=== PATIENT | female | born 1965 | race Caucasian/White ===

== ENCOUNTER 2017-09-10 14:11 | Emergency (ER) | payer OTHER, SELFPAY ==
[2017-09-10 14:12] VITALS: BP 153/100; PULSE 101; RESP 16; TEMP 36.5; O2SAT 98; BMI 24.3
--- NOTE | 2017-09-10 14:49 | ED.VISSUMM ---
- ER Visit Summary Date of Service: 09/10/17 Chief Complaint: Fall and nasal injury History of Present Illness: The patient is a 52 F past medical history of depression, anxiety and chronic pain. States she tripped and fell and landed on the bumper of the truck at home. She struck her nose. Had bleeding. Denies any LOC. Denies any head injury otherwise. She is not on blood thinners. She believes she may have broken her nose. She denies any neck pain. Or any other injuries. She has not had any vomiting or severe headache. Physical Examination: Appearing middle-aged female. Vital signs are stable afebrile. She does not look septic or toxic. She is in no acute distress. Pulse ox is 98% on room air no signs of hypoxia. H EENT exam is nasal bridge tenderness with swelling. And dried blood in both nares. There is currently no active bleeding. No bleeding down the posterior pharynx. No obvious dental injuries. No malocclusion. No chipped teeth. He does not have any otherwise significant facial tenderness or swelling. The orbits are unremarkable. Given dry reactive light extra motions are intact. Scalp is nontender. C-spine nontender normal range of motion. Trachea midline. Lungs clear to auscultation bilaterally. Heart regular rate and rhythm no murmur. Chest wall nontender. Abdomen soft nontender. Pelvic girdle intact. She is moving all 4 extremities. They are nontender. Normal range of motion. Bilateral equal symmetrical 5 out of 5 forepart laster strength. Dorsi plantar flexion intact. Back exam nontender. Neurologic exam is normal. NIH is 0. GCS of 15. Test Results: None Emergency Department Course and Treatment: Patient fell and has clinically a nasal fracture. Swollen and tender. There is dried blood but no active bleeding. She is comfortable not getting any x-rays. I offered her Suleiman-Synephrine soaked cotton balls but she deferred at this time and said she will just ice her nose down at home. I gave him instructions that if he restarts bleeding what to do. Treatment Plan: Ice. Tylenol Motrin for pain. Return if recurrent bleeding and unable to stop. Disposition: Discharge Impression: Acute fall with nasal fracture Nosebleed secondary to trauma resolved This note was generated with Look[employer]ation software. It may contain incorrect words, spelling, and punctuation that were not noted in review of the chart prior to signing ED Disposition - Plan for ED Patient: Chief Complaint: Fall Referrals: Lashonda Feliciano DO [Primary Care Provider] -
--- NOTE | 2017-09-10 14:53 | ED.DCSUM_ITS ---
- ER Visit Summary Date of Service: 09/10/17 Chief Complaint: Fall and nasal injury History of Present Illness: The patient is a 52 F past medical history of depression, anxiety and chronic pain. States she tripped and fell and landed on the bumper of the truck at home. She struck her nose. Had bleeding. Denies any LOC. Denies any head injury otherwise. She is not on blood thinners. She believes she may have broken her nose. She denies any neck pain. Or any other injuries. She has not had any vomiting or severe headache. Physical Examination: Appearing middle-aged female. Vital signs are stable afebrile. She does not look septic or toxic. She is in no acute distress. Pulse ox is 98% on room air no signs of hypoxia. H EENT exam is nasal bridge tenderness with swelling. And dried blood in both nares. There is currently no active bleeding. No bleeding down the posterior pharynx. No obvious dental injuries. No malocclusion. No chipped teeth. He does not have any otherwise significant facial tenderness or swelling. The orbits are unremarkable. Given dry reactive light extra motions are intact. Scalp is nontender. C-spine nontender normal range of motion. Trachea midline. Lungs clear to auscultation bilaterally. Heart regular rate and rhythm no murmur. Chest wall nontender. Abdomen soft nontender. Pelvic girdle intact. She is moving all 4 extremities. They are nontender. Normal range of motion. Bilateral equal symmetrical 5 out of 5 renal medicine physician strength. Dorsi plantar flexion intact. Back exam nontender. Neurologic exam is normal. NIH is 0. GCS of 15. Test Results: None Emergency Department Course and Treatment: Patient fell and has clinically a nasal fracture. Swollen and tender. There is dried blood but no active bleeding. She is comfortable not getting any x-rays. I offered her Suleiman- Synephrine soaked cotton balls but she deferred at this time and said she will just ice her nose down at home. I gave him instructions that if he restarts bleeding what to do. Treatment Plan: Ice. Tylenol Motrin for pain. Return if recurrent bleeding and unable to stop. Disposition: Discharge Impression: Acute fall with nasal fracture Nosebleed secondary to trauma resolved This note was generated with [employer] software. It may contain incorrect words, spelling, and punctuation that were not noted in review of the chart prior to signing ED Disposition - Plan for ED Patient: Chief Complaint: Fall Referrals: Lashonda Feliciano DO [Primary Care Provider] -
--- NOTE | 2017-09-10 14:53 | ED.DEP ---
ED Disposition - Plan for ED Patient: Disposition: Home or Assisted Living Chief Complaint: Fall Instructions: ED Contusion Nasal Vs Fx No X Ray Referrals: Lashonda Feliciano DO [Primary Care Provider] - As Needed Additional Instructions: Clinically of a nasal fracture. Ice. Tylenol Motrin for pain and swelling. You may develop black and blue eyes. Direct pressure pinching your nose to stop any bleeding. Return if unable to get the bleeding stopped. You can also use Suleiman-Synephrine or Afrin nasal splint to help control the bleeding.
[2017-09-10 15:06] VITALS: BP 127/88; RESP 18; RESP 20
== END 2017-09-10 15:08 | disposition home or self-care (01) ==
LOC: ED 15:06
PROVIDERS: Emergency Provider Emergency Medicine; Family Provider Internal Medicine; PCP Internal Medicine
DX: S02.2XXA Fracture of nasal bones, initial encounter for closed fracture (principal); R04.0 Epistaxis; W01.198A Fall on same level from slipping, tripping and stumbling with subsequent striking against other object, initial encounter; Y93.9 Activity, unspecified; Y92.9 Unspecified place or not applicable; Y99.9 Unspecified external cause status; G89.29 Other chronic pain; F32.9 Major depressive disorder, single episode, unspecified; F41.9 Anxiety disorder, unspecified; Z79.899 Other long term (current) drug therapy
CPT/HCPCS: 99282

== ENCOUNTER → 2018-05-22 13:02 | Outpatient (CLI) | payer OTHER, SELFPAY ==
--- NOTE | 2018-05-22 13:09 | CT_ITS ---
STUDY: LOW DOSE CT LUNG CANCER SCREENING REASON FOR EXAM: Female, 53 years old. Long-term smoker. RADIATION DOSAGE (If Supplied By Facility): CTDIvol = ( 3.02 ) mGy, DLP = ( 115.88 ) mGycm TECHNIQUE: No contrast was administered. Low dose technique was utilized (average mAS-38 and kVp 120). 1.25 mm axial source images with a slice interval of 1.25-mm were reconstructed in lung windows. 2.5 mm axial source images with a slice interval of 2.5-mm were reconstructed in lung windows. 5.0 mm axial source images with a slice interval of 5.0-mm were reconstructed in soft tissue windows. Nodule measured using lung windows on PACS and/or independent workstation with automated measurement of minimum and maximum diameter. Nodule measurement reported as average diameter rounded to the nearest whole number. Growth is defined as an increase ins size of greater than 1.5 mm. COMPARISON: None. NODULES: No suspicion nodule seen. Emphysema: Mild bullous changes in the lung apices. Endobronchial lesion: None Aorta: Unremarkable Coronary arteries: Unremarkable Other chest and abdominal findings: CT/Low Dose CT Lung Screening IMPRESSION: Lung-RADS category 2 - Continue annual screening with LDCT in 12 months. IMPORTANT NOTES FOR USE: ACR Lung-RADS Version 1.0 Assessment Categories Release Date: October 25, 2013 Category: Coded 0-4 bases on nodule(s) with highest degree of suspicion. Negative screen is defined as categories 1 and 2; a positive screen is defined as categories 3 and 4. Category 3 and 4A nodules that are unchanged on interval CT should be coded as category 2, and individuals returned to screening in 12 months. Category 4X: Category 3 or 4 nodules with additional imaging findings that increase the suspicion of lung cancer, such as spiculation, GGN that doubles in size in 1 year, enlarged lymph notes, etc. Category Modifiers: S (significant finding unrelated to lung cancer) and C (prior history of treated lung cancer) may be added to the 0-4 Lung-RADS Electronically Signed: Prasanna Espinoza MD at 15:16 EST Tel [phone], Service support ,
--- NOTE | 2018-05-22 13:09 | CT_ITS ---
STUDY: CT CHEST WITHOUT CONTRAST REASON FOR EXAM: Female, 53 years old. Abnormal EKG. Calcium scoring examination. This is a lung over read study. RADIATION DOSAGE (If Supplied By Facility): CTDIvol = ( 12.19 ) mGy, DLP = ( 243.79 ) mGycm TECHNIQUE: Transaxial imaging was performed without the administration of intravenous contrast material. Individualized dose optimization techniques were used for this CT. COMPARISON: None. FINDINGS: Mild degree of dependent bibasilar atelectasis. There is no demonstrated pleural abnormality. Normal heart and pericardium. There are multiple small lymph nodes within the mediastinum, which are normal in size and morphology most compatible with reactive lymph hyperplasia. Normal hilar regions. Normal unenhanced pulmonary arteries. Normal aorta arch and descending thoracic aorta. Normal osseous structures. There is no demonstrated abnormality of the visualized upper abdomen. CT/Limited Chest CT w/CCTA IMPRESSION: Normal unenhanced CT Chest examination. Electronically Signed: Prasanna Espinoza MD at 15:23 EST Tel [phone], Service support ,
[2018-05-22 13:20] VITALS: BP 107/45; PULSE 70; RESP 18; O2SAT 98; BMI 23.1
--- NOTE | 2018-05-22 14:41 | CA.SCORE ---
Calcium Scoring Date of Study:: 05/22/18 Coronary Calcium Scoring: Coronary calcium score. High-resolution computed tomographic imaging of the chest was performed on 05/22/2018 with particular attention paid to the coronary arteries. Images from the examination were analyzed for the presence and stent of coronary artery calcification using the coronary calcium quantification software. The patient tolerated the procedure well and there were no complications. The results of the coronary calcification analysis are provided below: Left main coronary artery score of 0 Left anterior descending artery calcium score of 0 Left circumflex artery calcium score of 0. Right coronary artery. Calcium score 0. Total calcium score 0. Conclusion: The above is indicative of minimal or no significant atherosclerotic plaquing
== END ==
PROVIDERS: Family Provider Internal Medicine; PCP Internal Medicine; Referring Provider Internal Medicine; Visit Provider Internal Medicine
DX: R94.31 Abnormal electrocardiogram [ECG] [EKG] (principal); F17.200 Nicotine dependence, unspecified, uncomplicated
CPT/HCPCS: 75571; 76380; G0297

== ENCOUNTER → 2018-06-18 12:49 | Outpatient (CLI) | payer OTHER, SELFPAY ==
[2018-05-22 13:20] VITALS: BMI 23.1
--- NOTE | 2018-06-18 12:52 | BI_ITS ---
MAMMOGRAPHY - BILATERAL SCREENING REASON FOR EXAM: Female, 53 years old. Routine annual screening examination. PERTINENT HISTORY: Non-contributory. TECHNIQUE: Digital bilateral breast chelsey (3D mammographic acquisition) in the CC and MLO projections. 2-D mediolateral oblique (MLO) and craniocaudad (CC) views of both breasts were obtained. CAD: Full Field Digital Mammography with Computer Added Detection was performed. COMPARISON: No comparison mammograms available at this time. If any prior films become available, an addendum to this report can be generated. FINDINGS: Breast Composition: There are scattered areas of fibroglandular density. There are no dominant masses or suspicious calcifications. No other significant abnormalities are identified. BI/SCREENING MAMM (CAD), BILAT IMPRESSION: Negative screening mammogram. Yearly followup mammogram recommended. (A) ASSESSMENT CATEGORY: BIRADS Category 1: Negative. A letter regarding these results will be sent to the patient by the facility within 30 days. Approximately 10% of breast cancers are not detected by mammography. A normal mammogram should not delay biopsy of a clinically suspicious abnormality. [id number] Electronically Signed: Prasanna Espinoza MD at 8:16 EST Tel [phone], Service support ,
--- NOTE | 2018-06-18 13:34 | BD_ITS ---
STUDY: DUAL ENERGY X-RAY ABSORPTIOMETRY / DXA REASON FOR EXAM: Female, 53 years old. The patient is postmenopausal. Loss of height. TECHNIQUE: Bone Mineral Density (BMD) measurements of lumbar spine and bilateral hips were obtained. COMPARISON: None. FINDINGS: Lumbar Spine (L1-L4): g/cm2 (1.085) / T-score (-0.7) / Z-score (0.0) Findings are suggestive of normal bone density with a low fracture risk. Left Femur Total: g/cm2 (0.926) / T-score (-0.6) / Z-score (0.0) Left Femoral Neck: g/cm2 (1.002) / T-score (-0.3) / Z-score (0.7) Right Femur Total: g/cm2 (0.857) / T-score (-1.2) / Z-score (-0.6) Right Femoral Neck: g/cm2 (0.913) / T-score (-0.9) / Z-score (0.1) BD/Dexa Bone Density Study IMPRESSION: The patient is considered osteopenic as outlined below according to World Keshav Organization (WHO) criteria with a low fracture risk. Reference Information: The T-score is the number of standard deviations above or below the standard which is normal for young adults at their peak bone mineral density. The World Health Organization (WHO) interprets the T-scores as follows: Above -1 Normal bone density Between -1 and -2.5 Osteopenia Equal to / or below -2.5 Osteoporosis As a practical clinical guideline, osteopenia may be graded as follows: Mild -1 through -1.5 Moderate -1.6 through -2.0 Severe -2.1 through -2.4 The Z-score is the number of standard deviations above or below age-matched controls. A Z-score of less than -1.5 would be considered abnormal. References: 1. NIH Osteoporosis and Related Bone Diseases http://www.osteo.org 2. International Society for Clinical Densitometry http://www.iscd.org 3. National Osteoporosis Foundation http://www.nof.org Electronically Signed: Prasanna Espinoza MD at 12:46 EST Tel [phone], Service support ,
== END ==
PROVIDERS: Family Provider Internal Medicine; PCP Internal Medicine; Visit Provider Internal Medicine
DX: Z12.31 Encounter for screening mammogram for malignant neoplasm of breast (principal); Z78.0 Asymptomatic menopausal state; M85.80 Other specified disorders of bone density and structure, unspecified site
CPT/HCPCS: 77063; 77067; 77080

== ENCOUNTER 2018-10-02 23:32 | Emergency (ER) | payer OTHER, SELFPAY ==
[2018-05-22 13:20] VITALS: BMI 23.1
[2018-10-02 23:33] VITALS: BP 139/83; PULSE 81; RESP 16; TEMP 36.7; O2SAT 98; BMI 23.8
[2018-10-03] MEDS: 0.9% Normal Saline 1,000 ML 1000 ML IV (00:30)
[2018-10-03] MEDS: Morphine 4 MG/ML Syringe IV (00:31)
[2018-10-03 00:44] LABS: Bacteria 0 SEEN /hpf (None Seen); Mucous, Urine 0 SEEN /hpf (<or=2+)
[2018-10-03 00:51] LABS: Color, Urine Yellow (Yellow); Glucose, Dipstick Normal (Normal); Ketone-Dipstick 5 mg/dl (Negative); Leukocyte Esterase-Dipstick 25 /ul (Negative); Nitrite-Dipstick Negative (Negative); Occult Blood-Urine 25 /ul (Negative); Protein-Dipstick Negative (Negative); Specific Gravity, Urine 1.025 (1.002-1.030); Urine Bilirubin Dipstick Negative (Negative); Urine Clarity Sl. Cloudy (Clear); Urine Urobilinogen Normal (Normal)
[2018-10-03 00:52] LABS: Absolute Lymphocyte Count 1.37 X10^3/ul (0.83-4.51); Absolute Neutrophil Count 4.4 X10^3/uL (2.0-7.7); Basophil# 0.03 X10^3/uL; Basophil% 0.5 % (0-1); Eosinophil# 0.12 X10^3/uL; Eosinophils% 1.9 % (0-5); Hematocrit 38.4 % (37-47); Hemoglobin 12.3 g/dl (12.0-15.0); Lymphocyte # 1.37 X10^3/ul (4.0); Lymphocyte % 21.4 % (19-41); Mean Corpuscular Hgb 28.8 pg (27.0-32.0); Mean Corpuscular Volume 89.9 fL (81-99); Mean Platelet Vol. 9.8 fl (6.2-12.0); Monocyte# 0.45 X10^3/uL; Neutrophil # 4.43 X10^3/uL (2.7-7.7); Neutrophil % 69.2 % (47-70); Platelet Count 300 K/mm3 (150-450); RBC Distribution Width CV 13.9 % (11.6-14.6); RBC Distribution Width SD 45.9 fl (35.1-43.9); Red Blood Count 4.27 M/mm3 (4.2-5.4); White Blood Count 6.4 K/mm3 (4.4-11.0)
[2018-10-03 00:56] LABS: POSITIVE COUNT NO; POSITIVE DIFFERENTIAL NO; POSITIVE MORPHOLOGY NO
[2018-10-03 01:13] LABS: Red Blood Cells-Urine 5-10 SEEN /hpf (0-5); Squamous Epithelial Cells - UA 0-5 SEEN /hpf (5-10); White Blood Cells 0-5 SEEN /hpf (0-5)
[2018-10-03 01:21] LABS: ALB/GLOB Ratio 1.2 RATIO (0.9-2.4); AST(SGOT) 18 U/L (15-37); Alanine Aminotransfer ALT/SGPT 29 U/L (13-56); Albumin, Serum 3.9 g/dL (3.2-5.0); Alkaline Phosphatase 99 U/L (45-117); Anion Gap 6 (5-15); BUN 26 mg/dL (7-18); BUN/Creat Ratio 23.2 RATIO (10-20); Calcium,Total 8.3 mg/dL (8.5-10.1); Chloride 111 mmol/L (98-107); Creatinine, Serum 1.12 mg/dL (0.55-1.02); EST Glomerular Filtration Rate 54 mL/min (>60); Est Glom Filt Rate - Afr Amer 65 mL/min (>60); Estimated Creatinine Clearance 60.01 ml/min; Globulin 3.2 g/dL (2.2-4.2); Glucose 73 mg/dL (74-106); Potassium 3.5 mmol/L (3.5-5.1); Protein, Total 7.1 g/dL (6.4-8.2); Sodium Level 142 mmol/L (136-145)
--- NOTE | 2018-10-03 01:35 | ED.DCSUM_ITS ---
History of Present Illness Chief Complaint: Abd Pain Informant: Patient Onset: Today Context: Gradual Onset Timing: Continuous Quality: achy Location: throughout lower half of abd, bilat Current Severity: Moderate Maximum Severity: Moderate Worsened by: nothing Relieved by: nothing Associated Symptoms: see below. no n/v/d, BRBPR/melena, fevers, bloating. Narrative: Patient states she had a hysterectomy remotely. She states around 6-7 months ago, she weight loss, due to poor appetite and feeling depressed because of her having an illness, and around that time she started having discomfort from her vagina up into her mid abdomen. She has had associated difficulty getting urination started since then as well. That has all been persistent ever since and she has seen no one for it yet. She states today she got lower abdominal discomfort that became persistent. No other new symptoms. Chronic back discomfort that is unchanged. - Past Medical History (1) Chronic low back pain Status: Chronic (2) HLD (hyperlipidemia) Status: Chronic Past Medical History - Allergies and Home Meds Allergies/Adverse Reactions: Allergies metaxalone Allergy (Verified 10/02/18 23:39) Anaphylaxis ANTI FUNGALS Allergy (Uncoded 09/10/17 14:15) Rash Primary Care Physician: Lashonda Feliciano DO [Primary Care Provider] - Surgical History: hysterectomy Lives: Spouse/ Significant Other Smoking Status: Former smoker Review of Systems General: Denies: Chills, Fever, Sweats Eyes: Denies: Visual changes - bilaterally, Diplopia ENT: Denies: Rhinorrhea, Sore throat Cardiovascular: Denies: Chest pain, Palpitations Respiratory: Denies: Dyspnea, Cough, Dyspnea on exertion Gastrointestinal: Reports: Abdominal pain. Denies: Nausea, Vomiting, Diarrhea, Melena, Hematochezia Genitourinary: Reports: - - Vaginal pain. No discharge. No bleeding., - - Urinary hesitancy. Denies: Dysuria, Hematuria, Frequency Musculoskeletal: Reports: Back pain. Denies: Neck pain, Swelling, Extremity Pain Skin: Denies: Rash, Wounds Neurological: Denies: Headache, Weakness, Numbness Physical Exam Vital Signs/Narrative: Vital Signs Temp Pulse Resp BP Pulse Ox 10/02/18 23:33 98.0 F 81 16 139/83 H 98 Inital Vital Signs reviewed: Yes General: Well nourished, Well developed, No Acute Distress Head: Normocephalic, Atraumatic Eyes: Perrl, EOMI ENT: Moist mucous membranes, No rhinorrhea Neck: Supple, Nontender Cardiovascular: Regular rate, Regular rhythm, No murmurs Respiratory: No distress, CTA bilaterally, Chest nontender Abdomen: Soft, Nondistended, Normal bowel sounds, Tender - Mild tenderness diffuse lower abdomen, nonfocal. Negative for: Guarding, Rebound tenderness Back: Nontender, Normal Inspection. Negative for: CVA tenderness Extremities: Nontender, No edema Skin: Normal color, No rash Neurological: Alert, Oriented x3, Cranial nerves II-XII grossly intact, Normal Strength, Normal Sensation Psychological: Normal affect, Normal Mood Diagnostic/Tx/Re-eval Laboratory Tests 10/03/18 10/03/18 10/03/18 Range/Units 00:35 00:10 00:10 WBC 6.4 (4.4-11.0) K/mm3 RBC 4.27 (4.2-5.4) M/mm3 Hgb 12.3 (12.0-15.0) g/dl Hct 38.4 (37-47) % MCV 89.9 (81-99) fL MCH 28.8 (27.0-32.0) pg MCHC 32.0 (32-36) g/gl RDW 13.9 (11.6-14.6) % RDW Differential 45.9 H (35.1-43.9) fl Plt Count 300 (150-450) K/mm3 MPV 9.8 (6.2-12.0) fl Immature Gran % (Auto) 0.000 (0.0-0.9) % Neut % (Auto) 69.2 (47-70) % Lymph % (Auto) 21.4 (19-41) % [place] % (Auto) 7.0 (0-10) % Eos % (Auto) 1.9 (0-5) % Baso % (Auto) 0.5 (0-1) % Absolute Neuts (auto) 4.4 (2.0-7.7) X10^3/uL Absolute Lymphs (auto) 1.37 (0.83-4.51) X10^3/ul Total Counted Not Reportable Sodium 142 (136-145) mmol/L Potassium 3.5 (3.5-5.1) mmol/L Chloride 111 H (98-107) mmol/L Carbon Dioxide 25.0 (21.0-32.0) mmol/L Anion Gap 6 (5-15) BUN 26 H (7-18) mg/dL Creatinine 1.12 H (0.55-1.02) mg/dL Estim Creat Clear Calc 60.01 ml/min Est GFR (MDRD) Af Amer 65 (>60) mL/min Est GFR (MDRD) Non-Af 54 L (>60) mL/min BUN/Creatinine Ratio 23.2 H (10-20) RATIO Glucose 73 L (74-106) mg/dL Calcium 8.3 L (8.5-10.1) mg/dL Total Bilirubin 0.30 (0.20-1.00) mg/dL AST 18 (15-37) U/L ALT 29 (13-56) U/L Alkaline Phosphatase 99 (45-117) U/L Total Protein 7.1 (6.4-8.2) g/dL Albumin 3.9 (3.2-5.0) g/dL Globulin 3.2 (2.2-4.2) g/dL Albumin/Globulin Ratio 1.2 (0.9-2.4) RATIO Urine Color Yellow (Yellow) Urine Clarity Sl. Cloudy (Clear) Urine pH 6.0 (5.0 - 8.0) Ur Specific [place] 1.025 (1.002-1.030) Urine Protein Negative (Negative) mg/dl Urine Glucose (UA) Normal (Normal) mg/dl Urine Ketones 5 H (Negative) mg/dl Urine Occult Blood 25 H (Negative) /ul Urine Nitrite Negative (Negative) Urine Bilirubin Negative (Negative) mg/dL Urine Urobilinogen Normal (Normal) mg/dl Ur Leukocyte Esterase 25 H (Negative) /ul Urine RBC 5-10 SEEN (0-5) /hpf Urine WBC 0-5 SEEN (0-5) /hpf Ur Squamous Epith Cells 0-5 SEEN (5-10) /hpf Urine Bacteria 0 SEEN (None Seen) /hpf Urine Mucus 0 SEEN (<or=2+) /hpf Clinical Impression(s) from Imaging Studies Abdomen/Pelvis CT 10/03/18 23:55 IMPRESSION: 1. 3 x 1 mm right UVJ stone with mild hydronephrosis and hydroureter proximal to the stone. 2. Diverticulosis coli with increased colonic fluid which may be related to diarrhea. 3. No free fluid. Individualized dose optimization techniques were used for this CT. at 0206 Reported and signed by: Michael Ortiz MD Electronically Signed: Michael Ortiz, at 2:05 EDT Tel , Service support , - Medical Decision Making Patient got better with morphine, but stated that she was worse although she appear to be in no acute distress. There was concern for appendicitis or diverticulitis, but it was odd that she was in pain and tender bilaterally in the abdomen. Her labs are unremarkable, urine shows trace blood, no signs of infection, and CT came back showing a 3 x 1 mm right UVJ stone with associated hydroureter and hydronephrosis, which is likely causing her pain because it is likely acute, as her pain is. Unusual that it is bilateral however. That being the case, she should be able to pass this on her own with expectant management. She will given additional analgesics here, strainers for use at home, as well as a prescription for Flomax and she was warned about first dose syncope. Advised to follow-up with urology if she goes a week or more without resolution of her pain or passing stone. Also given referral to gynecology unassigned bri, Dr. Estevez, for evaluation of her chronic vaginal symptoms since she states she currently has no mathematical statistician. All questions answered at bedside she is comfortable with this plan and in stable condition clinically and hemodynamically. ED Disposition - Plan for ED Patient: Disposition: Home or Assisted Living Diagnosis: Lower abdominal pain, Urolithiasis Instructions: ED Stone Renal W Colic, ED Strainer Urine Prescriptions: Hydrocodone Bitart/Apap 5-325 [[place] 5MG-325MG] 1 tab PO Q4H PRN PRN 2 Days #10 tab PRN Reason: Pain Tamsulosin HCl [Flomax] 0.4 mg PO DAILY #7 cap.er.24h Referrals: Lashonda Feliciano DO [Primary Care Provider] - Ayaka Veliz MD [STAFF PHYSICIAN] - 1 Week if not improving Caro Estevez MD [STAFF PHYSICIAN] - (for SCANNER SUPERVISOR care)
[2018-10-03] MEDS: Ketorolac 30 MG/ML Syringe IV (02:40)
[2018-10-03] MEDS: HYDROcodone Bitartrate/Apap 5/325 Tablet PO (02:42)
[2018-10-03 03:27] VITALS: BP 136/62; PULSE 68; RESP 16; O2SAT 98
--- NOTE | 2018-10-03 23:55 | CT_ITS ---
HISTORY: DIFFUSE LOW ABDOMEN/PELVIC PAIN X 2 MONTHS BUT WORSE NOWHX:HLD,HYSTERECTOMY,BSO EXAMINATION: CT Abdomen And Pelvis W/ Contrast TECHNIQUE: Helically acquired images were obtained of the abdomen and pelvis following IV contrast. A radiation dose optimization technique was used for this scan. IV Contrast dosage and agent: 100ML Isovue 300 Oral contrast: None. COMPARISON: None FINDINGS: Lower thorax: Mild dependent atelectasis, not unusual. No pleural effusion. The gallbladder is well distended and is otherwise negative. No biliary dilatation. Normal liver, spleen, and pancreas. Both kidneys are normal in position. 3 x 1 mm right UVJ stone with mild hydronephrosis and hydroureter proximal to the stone. No hydronephrosis or hydroureter on the left. Adrenal glands are not enlarged. Abdominal aorta is atherosclerotic abdomen caliber. No ascites or retroperitoneal lymph enlargement. GI tract: No obstruction. Diverticulosis coli. Increased colonic fluid compared to normal. Normal appendix. Pelvis: Hysterectomy. No free fluid or lymph node enlargement. Urinary bladder is normally distended. Bones: No acute osseous abnormality. CT/Abdomen/Pelvis W IV Cont ONLY IMPRESSION: 1. 3 x 1 mm right UVJ stone with mild hydronephrosis and hydroureter proximal to the stone. 2. Diverticulosis coli with increased colonic fluid which may be related to diarrhea. 3. No free fluid. Individualized dose optimization techniques were used for this CT. at 0206 Reported and signed by: Michael Ortiz MD Electronically Signed: Michael Ortiz, at 2:05 EDT Tel , Service support ,
== END 2018-10-03 02:50 | disposition home or self-care (01) ==
PROVIDERS: Emergency Provider Emergency Medicine; Family Provider Internal Medicine; PCP Internal Medicine
DX: N13.2 Hydronephrosis with renal and ureteral calculous obstruction (principal); E78.5 Hyperlipidemia, unspecified; M54.5 Low back pain; G89.29 Other chronic pain; Z79.899 Other long term (current) drug therapy; Z87.891 Personal history of nicotine dependence; Z90.710 Acquired absence of both cervix and uterus
CPT/HCPCS: 74177; 80053; 81001; 85025; 96361; 96374; 96375; 99283; J7030; Q9967; A4216

== ENCOUNTER → 2019-01-26 11:28 | Outpatient (CLI) | payer OTHER, SELFPAY ==
--- NOTE | 2019-01-26 11:31 | RAD_ITS ---
STUDY: X-RAY - LEFT ELBOW REASON FOR EXAM: Female, 53 years old. Increasing elbow pain. Remote history of fracture. TECHNIQUE: 3 view(s) of the elbow. COMPARISON: None. FINDINGS: Normal visualized humerus, radius and ulna. Normal radiocapitellar and ulnotrochlear articulations. The soft tissue structures are unremarkable. There is no demonstrated osseous destructive lesion or acute fracture. RAD/Elbow min 3 Views IMPRESSION: Normal x-ray examination of the left elbow. Electronically Signed: Gui Fernandez MD at 14:34 EDT , Service support ,
== END ==
PROVIDERS: Family Provider Internal Medicine; PCP Internal Medicine; Referring Provider Nurse Practitioner Family; Visit Provider Nurse Practitioner Family
DX: M25.522 Pain in left elbow (principal)
CPT/HCPCS: 73080

== ENCOUNTER 2019-07-31 22:12 | Emergency (ER) | payer OTHER, SELFPAY ==
[2019-02-22 08:37] VITALS: BMI 22.3
[2019-07-31 22:12] VITALS: BP 171/84; PULSE 102; RESP 16; TEMP 36.2; O2SAT 100; BMI 24.2
[2019-07-31 22:25] VITALS: TEMP 36.2
--- NOTE | 2019-07-31 22:36 | ED.VIS.GEN ---
History of Present Illness Chief Complaint: Abscess Narrative: Patient presents the emergency department concern for a rectal abscess. She states that she felt some rectal discomfort yesterday that was worse today. She states she feels a firmness around her hemorrhoids. States she has not had any rectal surgery in the past. She has not had any problems with her hemorrhoids for a very long time. She had some leftover Augmentin that she started to take. Past Medical History - Allergies and Home Meds Allergies/Adverse Reactions: Allergies metaxalone Allergy (Verified 07/31/19 22:13) Anaphylaxis amoxicillin [From Augmentin] Adverse Reaction (Verified 07/31/19 22:13) Nausea clavulanic acid [From Augmentin] Adverse Reaction (Verified 07/31/19 22:13) Nausea ANTI FUNGALS Allergy (Uncoded 07/31/19 22:13) Rash Primary Care Physician: Lashonda Feliciano DO [Primary Care Provider] - Surgical History: hysterectomy Smoking Status: Current every day smoker Review of Systems General: Denies: Chills, Fever, Sweats Eyes: Denies: Visual changes - bilaterally, Diplopia ENT: Denies: Rhinorrhea, Sore throat Cardiovascular: Denies: Chest pain, Palpitations Respiratory: Denies: Dyspnea, Cough, Dyspnea on exertion Gastrointestinal: Reports: - - Rectal pain. Denies: Abdominal pain, Nausea, Vomiting, Diarrhea, Melena, Hematochezia Genitourinary: Denies: Dysuria, Hematuria, Frequency Musculoskeletal: Denies: Back pain, Extremity Pain Skin: Denies: Rash, Wounds Neurological: Denies: Headache, Weakness, Numbness Physical Exam Vital Signs/Narrative: Vital Signs Temp Pulse Resp BP Pulse Ox 07/31/19 22:25 97.2 F L 07/31/19 22:12 97.2 F L 102 H 16 171/84 H 100 Inital Vital Signs reviewed: Yes General: Well nourished, Well developed, No Acute Distress Head: Normocephalic, Atraumatic Eyes: Perrl, EOMI ENT: Moist mucous membranes, No rhinorrhea Neck: Supple, Nontender Cardiovascular: Regular rate, Regular rhythm, No murmurs Respiratory: No distress, CTA bilaterally, Chest nontender Abdomen: Soft, Nontender, Nondistended, Normal bowel sounds Rectal: - - There are some anal tags present. There is one hemorrhoid that appears pink and inflamed. There is some firmness at the base of this hemorrhoid extending onto the left buttock that is about the size of a quarter. Back: Nontender, Normal Inspection Extremities: Nontender, No edema Skin: Normal color, No rash Neurological: Alert, Oriented x3, Cranial nerves II-XII grossly intact, Normal Strength, Normal Sensation Psychological: Normal affect, Normal Mood Diagnostic/Tx/Re-eval - Medical Decision Making Bedside ultrasound, there is no blood flow to the area in question. There is some debris surrounded by fluid. Difficult to say if this is a thrombosed hemorrhoid versus abscess. Local lidocaine applied to the skin. Patient was cleansed and draped in the usual manner. Small amount of 1% lidocaine was instilled into the area. An 11 blade was used to make 1/2 cm linear incision. Curved hemostats were used to explore the area and the pocket was opened. A significant amount of purulence was drained. It was irrigated. And a small amount of 1/4 iodoform packing was placed. Patient was started on Augmentin and [place]. A little topical lidocaine jelly will be prescribed. She will follow-up with surgery to ensure resolution. Sitz Baths were encouraged. ED Disposition - Plan for ED Patient: Disposition: Home or Assisted Living Diagnosis: Perirectal abscess Instructions: ABSCESS, Incision and Drainage Prescriptions: Ciprofloxacin [Cipro] 500 mg PO BID #14 tab Prescription Printed metroNIDAZOLE [Flagyl] 500 mg PO Q8H #21 tab Prescription Printed Hydrocodone Bitart/Apap 5-325 [[place] 5MG-325MG] 1 tab PO Q6H PRN PRN 3 Days #12 tab PRN Reason: Pain Prescription Printed Lidocaine 2% Jelly [Xylocaine 2% Jelly] 5 ml TOPICAL 5X/DAY PRN #30 g PRN Reason: rectal pain Prescription Printed Referrals: Que Hernandez MD [STAFF PHYSICIAN] - (in 3 days for repeat examination) Additional Instructions: Packing may be removed in 3 days if it has not already fallen out.
[2019-07-31 23:14] VITALS: BP 138/78; PULSE 87; RESP 17; TEMP 36.6; O2SAT 97
[2019-07-31] MEDS: Lidocaine 4% 50 ML Bottle TOPICAL (23:54)
[2019-08-01 00:07] VITALS: RESP 17
== END 2019-08-01 00:08 | disposition home or self-care (01) ==
PROVIDERS: Emergency Provider Emergency Medicine; PCP Internal Medicine
DX: K61.1 Rectal abscess (principal); Z79.899 Other long term (current) drug therapy; F17.200 Nicotine dependence, unspecified, uncomplicated; Z88.0 Allergy status to penicillin; Z88.1 Allergy status to other antibiotic agents; Z90.710 Acquired absence of both cervix and uterus
CPT/HCPCS: 46050; 99282

== ENCOUNTER → 2020-07-10 08:15 | Outpatient (CLI) | payer OTHER, SELFPAY ==
[2020-01-21 08:54] VITALS: BMI 25.5
--- NOTE | 2020-07-10 08:18 | BI_ITS ---
MAMMOGRAPHY - BILATERAL SCREENING REASON FOR EXAM: Female, 55 years old. Routine annual screening examination. PERTINENT HISTORY: Non-contributory. Remote left excisional breast biopsy. TECHNIQUE: Digital bilateral breast mariana (3D mammographic acquisition) in the CC and MLO projections. 2-D mediolateral oblique (MLO) and craniocaudad (CC) views of both breasts were obtained. CAD: Full Field Digital Mammography with Computer Added Detection was performed. COMPARISON: Comparison is made with prior study dated 06/18/2018. FINDINGS: Breast Composition: There are scattered areas of fibroglandular density. There are no dominant masses or suspicious calcifications. Stable small benign-appearing bilateral axillary lymph nodes. No other significant abnormalities are identified. There has been no significant change since the prior study. BI/SCREEN MAMM (CAD) W/MARIANA BILAT IMPRESSION: Stable bilateral screening mammogram. Yearly follow-up mammogram recommended. (A) ASSESSMENT CATEGORY: BIRADS Category 2: Benign. A letter regarding these results will be sent to the patient by the facility within 30 days. Approximately 10% of breast cancers are not detected by mammography. A normal mammogram should not delay biopsy of a clinically suspicious abnormality. [id number] Electronically Signed: Prasanna Espinoza, at 9:49 EST , Service support ,
== END ==
PROVIDERS: PCP Internal Medicine; Referring Provider Internal Medicine; Visit Provider Internal Medicine
DX: Z12.31 Encounter for screening mammogram for malignant neoplasm of breast (principal)
CPT/HCPCS: 77063; 77067

== ENCOUNTER 2021-04-02 08:47 | Day surgery (SDC) | payer OTHER, SELFPAY ==
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
[2021-04-02] VITALS (8 sets, daily range): BP systolic 108–144; BP diastolic 73–86; PULSE 79–93; RESP 16–20; TEMP 35.8–36.2; O2SAT 90–99; BMI 27.0
[2021-04-02] MEDS: Lactated Ringers 1,000 ML 100 ML IV (10:10)
--- NOTE | 2021-04-02 10:20 | RAD_ITS ---
PROCEDURE: CAUDAL EPIDURAL STEROID INJECTION INDICATION: 56-year-old female with low back pain. EXAMINATION/TECHNIQUE: X-RAY - IR Fluoro Guide Injection Spine Total Fluoroscopic Time: 5.9 seconds Fluoroscopic Images: Floroscopy Dose: 3.73 mGy COMPARISON: 01/12/2021. FINDINGS: 2 spot fluoroscopic images were intra-operatively demonstrating a needle superimposed over the caudal hiatus and contrast injection. No radiologist was present for the procedure, please refer to operative report for details. RAD/Fluor Guidance for Spine Inj IMPRESSION: Please refer to operative report for details. Electronically Signed: oRbert Carrasco MD at 14:25 EDT Tel , Service support ,
[2021-04-02] MEDS: MethylPREDNISolone Acetate 80 MG/ML Vial (10:30)
[2021-04-02] MEDS: Bupivacaine 0.25% 30 ML Vial (10:31)
[2021-04-02] MEDS: Lidocaine 1% (5 ml sdv) 5 ML Vial (10:31)
[2021-04-02] MEDS: 0.9% Normal Saline (Pres. free 10 ML Vial (10:31)
--- NOTE | 2021-04-02 15:54 | OP.PCM_ITS ---
Report of Operation Date of Procedure: 04/02/21 Pre-Operative Diagnosis: Lumbosacral radiculopathy, lumbosacral degenerative di sc disease, lumbosacral spinal stenosis Post-Operative Diagnosis: Lumbosacral radiculopathy, lumbosacral degenerative disc disease, lumbosacral spinal stenosis Surgery/Procedure Performed:: Caudal epidural steroid injection under fluoroscopic guidance Type of Anesthesia: MAC Estimated Blood Loss (mL): Minimal Description of Procedure: DESCRIPTION OF PROCEDURE: History and physical of today was reviewed. Risks and benefits of the procedure were explained. The patient understood and agreed to proceed. Informed consent was obtained. IV inserted per routine protocol. The patient was taken to the operating room and placed in the prone position with a pillow positioned underneath the abdomen. The lower back and tailbone area was prepped and draped in a sterile fashion using iodine x3. Under fluoroscopy guidance on a lateral view, the caudal space was identified. The skin and subcutaneous tissue was anesthetized with approximately 3 mL of 1% lidocaine using a 25-gauge regular needle. Under direct visualization with fluoroscopy, using a 22-gauge 3-1/2-inch spinal needle, the needle was advanced via the skin through the sacral hiatus. The tip of the needle was passed through the sacrococcygeal ligament and advanced to approximately S4 area. After negative aspiration of blood or CSF, a total of 3 mL of contrast was injected to confirm correct placement of the needle as well as cephalad spread. The spread was followed to approximately L5 area. After confirmation on AP as well as lateral view and repeated negative aspiration, a total of 15 mL of preservative-free 0.125% Marcaine with 80 mg of Depo-Medrol was injected easily. The needle was then removed intact. The patient experienced no sign or symptoms of intrathecal or intravascular injection. The patient experienced no paresthesia. The procedure was completed without any apparent difficulty or any complications. The patient appeared to tolerate it well. ASSESSMENT AND PLAN: This is a 56-year-old female with lumbosacral radiculopathy, lumbosacral degenerative disc disease, lumbosacral spinal stenosis status post caudal epidural steroid injection, patient will continue her current medications, patient will follow in approximately 2 weeks for reevaluation. Complications None
== END 2021-04-02 11:10 | disposition home or self-care (01) ==
LOC: SDC 08:48 → AC 09:27
PROVIDERS: PCP Internal Medicine; Referring Provider Anesthesiology Pain Medicine; Visit Provider Anesthesiology Pain Medicine
PROC: 3E0S3BZ Introduction of Anesthetic Agent into Epidural Space, Percutaneous Approach (ICD-10-PCS; CPT 62282; principal; 2021-04-02 10:15)
DX: M51.17 Intervertebral disc disorders with radiculopathy, lumbosacral region (principal); M48.07 Spinal stenosis, lumbosacral region; S22.39XA Fracture of one rib, unspecified side, initial encounter for closed fracture; X58.XXXA Exposure to other specified factors, initial encounter; Y93.9 Activity, unspecified; Y92.9 Unspecified place or not applicable; Y99.9 Unspecified external cause status; G63 Polyneuropathy in diseases classified elsewhere; E11.9 Type 2 diabetes mellitus without complications; E78.5 Hyperlipidemia, unspecified; E03.9 Hypothyroidism, unspecified; F11.20 Opioid dependence, uncomplicated; K21.9 Gastro-esophageal reflux disease without esophagitis; F32.A Depression, unspecified; F41.9 Anxiety disorder, unspecified; Z79.1 Long term (current) use of non-steroidal anti-inflammatories (NSAID); Z79.890 Hormone replacement therapy; Z79.899 Other long term (current) drug therapy; Z90.79 Acquired absence of other genital organ(s)
CPT/HCPCS: 62323; 64483; 77003; J7120; J3490

== ENCOUNTER 2021-04-30 10:37 | Day surgery (SDC) | payer OTHER, SELFPAY ==
[2021-04-30 11:02] VITALS: BP 128/73; PULSE 96; RESP 16; TEMP 36.7; O2SAT 95; BMI 27.3
[2021-04-30] MEDS: Lactated Ringers 1,000 ML 100 ML IV (11:10)
--- NOTE | 2021-04-30 12:00 | RAD_ITS ---
PROCEDURE: Caudal block. DATE OF EXAMINATION: 04/30/2021. INDICATION: Female, 56 years old. Chronic low back pain. FLUOROSCOPY TIME (if supplied): (6 seconds) minutes/seconds. One image was obtained. RAD/Fluor Guidance for Spine Inj IMPRESSION: Intraoperative imaging for caudal block. Electronically Signed: Prasanna Espinoza MD at 14:48 EDT , Service support ,
--- NOTE | 2021-04-30 12:22 | OP.PCM_ITS ---
Report of Operation Date of Procedure: 04/30/21 Pre-Operative Diagnosis: Lumbosacral radiculopathy, lumbosacral degenerative di sc disease, lumbosacral spinal stenosis Post-Operative Diagnosis: Lumbosacral radiculopathy, lumbosacral degenerative disc disease, lumbosacral spinal stenosis Surgery/Procedure Performed:: Caudal epidural steroid injection under fluoroscopic guidance Type of Anesthesia: MAC Estimated Blood Loss (mL): Minimal Description of Procedure: DESCRIPTION OF PROCEDURE: History and physical of today was reviewed. Risks and benefits of the procedure were explained. The patient understood and agreed to proceed. Informed consent was obtained. IV inserted per routine protocol. The patient was taken to the operating room and placed in the prone position with a pillow positioned underneath the abdomen. The lower back and tailbone area was prepped and draped in a sterile fashion using iodine x3. Under fluoroscopy guidance on a lateral view, the caudal space was identified. The skin and subcutaneous tissue was anesthetized with approximately 3 mL of 1% lidocaine using a 25-gauge regular needle. Under direct visualization with fluoroscopy, using a 22-gauge 3-1/2-inch spinal needle, the needle was advanced via the skin through the sacral hiatus. The tip of the needle was passed through the sacrococcygeal ligament and advanced to approximately S4 area. After negative aspiration of blood or CSF, a total of 3 mL of contrast was injected to confirm correct placement of the needle as well as cephalad spread. The spread was followed to approximately L5 area. After confirmation on AP as well as lateral view and repeated negative aspiration, a total of 15 mL of preservative-free 0.125% Marcaine with 80 mg of Depo-Medrol was injected easily. The needle was then removed intact. The patient experienced no sign or symptoms of intrathecal or intravascular injection. The patient experienced no paresthesia. The procedure was completed without any apparent difficulty or any complications. The patient appeared to tolerate it well. ASSESSMENT AND PLAN: This is a 56-year-old female with lumbosacral radiculopathy, lumbosacral degenerative disc disease, lumbosacral spinal stenosis status post caudal epidural steroid injection, patient will continue her current medications, patient will follow in approximately 2 weeks for reevaluation. Complications None
[2021-04-30] MEDS: MethylPREDNISolone Acetate 80 MG/ML Vial (12:28)
[2021-04-30] MEDS: Bupivacaine 0.25% 30 ML Vial (12:29)
[2021-04-30] MEDS: Lidocaine 1% (5 ml sdv) 5 ML Vial (12:29)
[2021-04-30] MEDS: 0.9% Normal Saline (Pres. free 10 ML Vial (12:29)
[2021-04-30 12:38] VITALS: BP 123/70; BP 128/73; PULSE 84; RESP 18; TEMP 36.4; O2SAT 94
[2021-04-30 12:42] VITALS: BP 127/75; BP 128/73; PULSE 83; RESP 18; O2SAT 96
[2021-04-30 12:44] VITALS: BP 128/73; BP 128/77; PULSE 83; RESP 18; O2SAT 97
[2021-04-30 12:45] VITALS: BP 128/73; BP 131/79; PULSE 82; RESP 18; TEMP 36.1; O2SAT 94
[2021-04-30 13:08] VITALS: BP 128/73
== END 2021-04-30 13:12 | disposition home or self-care (01) ==
LOC: SDC 10:40 → AC 10:43
PROVIDERS: PCP Internal Medicine; Visit Provider Anesthesiology Pain Medicine
PROC: 3E0S3BZ Introduction of Anesthetic Agent into Epidural Space, Percutaneous Approach (ICD-10-PCS; CPT 62282; principal; 2021-04-30 11:55)
DX: M51.17 Intervertebral disc disorders with radiculopathy, lumbosacral region (principal); M47.26 Other spondylosis with radiculopathy, lumbar region; M48.07 Spinal stenosis, lumbosacral region; M96.1 Postlaminectomy syndrome, not elsewhere classified; M79.7 Fibromyalgia; M54.12 Radiculopathy, cervical region; J44.9 Chronic obstructive pulmonary disease, unspecified; M19.90 Unspecified osteoarthritis, unspecified site; F32.A Depression, unspecified; F41.9 Anxiety disorder, unspecified; Z79.891 Long term (current) use of opiate analgesic; Z79.899 Other long term (current) drug therapy; Z87.891 Personal history of nicotine dependence
CPT/HCPCS: 01992; 62323; 64483; 77003; J7120; J3490

== ENCOUNTER → 2021-06-19 08:02 | Outpatient (CLI) | payer OTHER, SELFPAY ==
--- NOTE | 2021-06-19 08:03 | CT_ITS ---
STUDY: LOW DOSE CT LUNG CANCER SCREENING REASON FOR EXAM: Female, 56 years old. SMOKER. Patient smokes 1 pack per day for 45 years. RADIATION DOSAGE (If Supplied By Facility): CTDIvol = ( 3.02 ) mGy, DLP = ( 105.33 ) mGycm TECHNIQUE: No contrast was administered. Low dose technique was utilized (average mAS-38 and kVp 120). 1.25 mm axial source images with a slice interval of 1.25-mm were reconstructed in lung windows. 2.5 mm axial source images with a slice interval of 2.5-mm were reconstructed in lung windows. 5.0 mm axial source images with a slice interval of 5.0-mm were reconstructed in soft tissue windows. Nodule measured using lung windows on PACS and/or independent workstation with automated measurement of minimum and maximum diameter. Nodule measurement reported as average diameter rounded to the nearest whole number. Growth is defined as an increase ins size of greater than 1.5 mm. COMPARISON: Comparison is made with prior study dated 05/22/2018. NODULES: No suspicious nodules are seen. Emphysema: Mild degree of emphysematous change with scarring at both lung apices. Increased linear markings at the right lung base. This extends into the pleural surface suggestive of a linear scarring and focal pleural thickening. Endobronchial lesion: None Aorta: Unremarkable Coronary arteries: Unremarkable Heart: Unremarkable Pulmonary artery: Unremarkable Mediastinal nodes: Unremarkable Other chest and abdominal findings: CT/Low Dose CT Lung Screening IMPRESSION: Lung-RADS category 2 - Continue annual screening with LDCT in 12 months. IMPORTANT NOTES FOR USE: ACR Lung-RADS Version 1.1 Assessment Categories Release Date: 2018 Category: Coded 0-4 bases on nodule(s) with highest degree of suspicion. Negative screen is defined as categories 1 and 2; a positive screen is defined as categories 3 and 4. Category 3 and 4A nodules that are unchanged on interval CT should be coded as category 2, and individuals returned to screening in 12 months. Category 4X: Category 3 or 4 nodules with additional imaging findings that increase the suspicion of lung cancer, such as spiculation, GGN that doubles in size in 1 year, enlarged lymph notes, etc. Category Modifiers: S (significant finding unrelated to lung cancer) Electronically Signed: Prasanna Espinoza MD at 12:39 EST , Service support ,
== END ==
PROVIDERS: PCP Internal Medicine; Referring Provider Internal Medicine; Visit Provider Internal Medicine
DX: Z12.2 Encounter for screening for malignant neoplasm of respiratory organs (principal); F17.200 Nicotine dependence, unspecified, uncomplicated
CPT/HCPCS: 71271

== ENCOUNTER 2021-08-20 10:36 | Day surgery (SDC) | payer OTHER, SELFPAY ==
[2021-08-20 10:51] VITALS: BP 125/66; PULSE 90; RESP 16; TEMP 37; O2SAT 100; BMI 26.6
[2021-08-20] MEDS: Lactated Ringers 1,000 ML 15 ML IV (10:58)
[2021-08-20] MEDS: 0.9% Normal Saline (Pres. free 10 ML Vial (12:05)
[2021-08-20] MEDS: Bupivacaine 0.25% 30 ML Vial (12:05)
[2021-08-20] MEDS: MethylPREDNISolone Acetate 80 MG/ML Vial (12:05)
[2021-08-20] MEDS: Lidocaine 1% (5 ml sdv) 5 ML Vial (12:06)
[2021-08-20 12:10] VITALS: BP 125/66; BP 144/79; PULSE 93; RESP 16; TEMP 37.7; O2SAT 90
--- NOTE | 2021-08-20 12:10 | RAD_ITS ---
PROCEDURE: Caudal block. DATE OF EXAMINATION: 08/20/2021. INDICATION: Female, 56 years old. Chronic low back pain. FLUOROSCOPY TIME (if supplied): (4 seconds) minutes/seconds. One image was submitted. RAD/Fluor Guidance for Spine Inj IMPRESSION: Intraoperative imaging provided for caudal block. Electronically Signed: Prasanna Espinoza MD at 15:37 EST ,
[2021-08-20 12:15] VITALS: BP 125/66; BP 131/76; PULSE 83; RESP 16; O2SAT 98
[2021-08-20 12:20] VITALS: BP 125/66; BP 135/75; PULSE 85; RESP 16; O2SAT 96
[2021-08-20 12:25] VITALS: BP 125/66; BP 134/79; PULSE 84; RESP 16; TEMP 36.6; O2SAT 96
[2021-08-20 12:41] VITALS: BP 125/66
--- NOTE | 2021-08-20 15:17 | OP.PCM_ITS ---
Report of Operation Date of Procedure: 08/20/21 Pre-Operative Diagnosis: Lumbosacral radiculopathy, lumbosacral degenerative di sc disease, lumbosacral spinal stenosis Post-Operative Diagnosis: Lumbosacral radiculopathy, lumbosacral degenerative disc disease, lumbosacral spinal stenosis Surgery/Procedure Performed:: Caudal epidural steroid injection under fluoroscopic guidance Type of Anesthesia: MAC Estimated Blood Loss (mL): Minimal Description of Procedure: DESCRIPTION OF PROCEDURE: History and physical of today was reviewed. Risks and benefits of the procedure were explained. The patient understood and agreed to proceed. Informed consent was obtained. IV inserted per routine protocol. The patient was taken to the operating room and placed in the prone position with a pillow positioned underneath the abdomen. The lower back and tailbone area was prepped and draped in a sterile fashion using iodine x3. Under fluoroscopy guidance on a lateral view, the caudal space was identified. The skin and subcutaneous tissue was anesthetized with approximately 3 mL of 1% lidocaine using a 25-gauge regular needle. Under direct visualization with fluoroscopy, using a 22-gauge 3-1/2-inch spinal needle, the needle was advanced via the skin through the sacral hiatus. The tip of the needle was passed through the sacrococcygeal ligament and advanced to approximately S4 area. After negative aspiration of blood or CSF, a total of 3 mL of contrast was injected to confirm correct placement of the needle as well as cephalad spread. The spread was followed to approximately L5 area. After confirmation on AP as well as lateral view and repeated negative aspiration, a total of 15 mL of preservative-free 0.125% Marcaine with 80 mg of Depo-Medrol was injected easily. The needle was then removed intact. The patient experienced no sign or symptoms of intrathecal or intravascular injection. The patient experienced no paresthesia. The procedure was completed without any apparent difficulty or any complications. The patient appeared to tolerate it well. ASSESSMENT AND PLAN: This is a 56-year-old female with lumbosacral radiculopathy, lumbosacral degenerative disc disease, lumbosacral spinal stenosis status post caudal epidural steroid injection, patient will continue her current medications, patient will follow in approximately 2 weeks for reevaluation. Complications None
== END 2021-08-20 23:59 | disposition home or self-care (01) ==
LOC: SDC 10:39 → AC 10:40
PROVIDERS: PCP Internal Medicine; Referring Provider Anesthesiology Pain Medicine; Visit Provider Anesthesiology Pain Medicine
PROC: 3E0S3BZ Introduction of Anesthetic Agent into Epidural Space, Percutaneous Approach (ICD-10-PCS; CPT 62282; principal; 2021-08-20 12:05)
DX: M51.17 Intervertebral disc disorders with radiculopathy, lumbosacral region (principal); M06.9 Rheumatoid arthritis, unspecified; J44.9 Chronic obstructive pulmonary disease, unspecified; M48.07 Spinal stenosis, lumbosacral region; M96.1 Postlaminectomy syndrome, not elsewhere classified; E78.00 Pure hypercholesterolemia, unspecified; M79.7 Fibromyalgia; F32.9 Major depressive disorder, single episode, unspecified; F41.9 Anxiety disorder, unspecified; Z79.891 Long term (current) use of opiate analgesic; Z79.899 Other long term (current) drug therapy
CPT/HCPCS: 62323; 64483; 77003; J7120; J3490

== ENCOUNTER → 2022-02-12 | Outpatient (CLI) | payer OTHER, SELFPAY ==
--- NOTE | 2022-02-12 09:14 | RAD_ITS ---
INDICATION: PAIN EXAMINATION/TECHNIQUE: X-RAY - LEFT XR Shoulder Min 2 Views 4 VIEWS COMPARISON: None. FINDINGS: SOFT TISSUES: No soft tissue swelling or gas. No radiopaque foreign body. BONES/JOINTS: No acute fracture or subluxation.. Normal alignment. Preservation of the joint space.. Degenerative bone changes are seen. No sclerotic or destructive changes observed. RAD/Shoulder min 2 Views IMPRESSION: Mild degenerative changes, no evidence of acute osseous pathology is seen. Electronically Signed: Robert Carrasco MD at 9:33 EDT ,
== END | disposition home or self-care (01) ==
LOC: MTRAD 09:14
PROVIDERS: PCP Internal Medicine; Referring Provider Nurse Practitioner Family; Visit Provider Nurse Practitioner Family
DX: M25.512 Pain in left shoulder (principal)
CPT/HCPCS: 73030

== ENCOUNTER → 2022-04-11 | Outpatient (CLI) | payer OTHER, SELFPAY ==
--- NOTE | 2022-04-11 08:24 | RAD_ITS ---
STUDY: X-RAY CHEST REASON FOR EXAM: Female, 57 years old. COUGH TECHNIQUE: PA or AP and lateral COMPARISON: None. FINDINGS: The lungs are clear and expanded. Mild biapical pleural thickening. Normal size heart. Normal mediastinum and laurie. Normal visualized pulmonary arteries. Normal visualized aortic arch and descending thoracic aorta. Normal visualized thoracic spine. Normal visualized ribs, clavicles, and shoulders. There is no demonstrated abnormality of the visualized soft tissue structures of the upper abdomen. RAD/Chest PA and Lateral IMPRESSION: Mild biapical pleural thickening. Electronically Signed: Randy Rothman MD, JADE at 10:39 EDT ,
== END | disposition home or self-care (01) ==
LOC: MTRAD 08:21
PROVIDERS: PCP Internal Medicine; Referring Provider Internal Medicine; Visit Provider Internal Medicine
DX: R05.9 Cough, unspecified (principal)
CPT/HCPCS: 71046

== ENCOUNTER → 2023-01-07 | Outpatient (CLI) | payer OTHER, SELFPAY ==
--- NOTE | 2023-01-07 10:56 | CT_ITS ---
STUDY: LOW DOSE CT LUNG CANCER SCREENING REASON FOR EXAM: Female, 57 years old. SMOKER. 1ppd x 40 years RADIATION DOSAGE (If Supplied By Facility): CTDIvol = ( 2.01 ) mGy, DLP = ( 69.97 ) mGycm TECHNIQUE: No contrast was administered. Low dose technique was utilized (average mAS-38 and kVp 120). 1.25 mm axial source images with a slice interval of 1.25-mm were reconstructed in lung windows. 2.5 mm axial source images with a slice interval of 2.5-mm were reconstructed in lung windows. 5.0 mm axial source images with a slice interval of 5.0-mm were reconstructed in soft tissue windows. COMPARISON: Comparison is made with prior study dated June 19, 2021. NODULES: No suspicious nodules are seen. Emphysema: Hyperinflation. Mild degree of emphysematous changes with scarring at the lung apices. Stable linear scarring is seen in the right lung base laterally. This extends to the pleural surface. Endobronchial lesion: None Aorta: Unremarkable. CORONARY ARTERIES: Coronary artery calcification is not seen. Heart: Unremarkable Pulmonary artery: Unremarkable Mediastinal nodes: Small mediastinal nodes. Other chest and abdominal findings: CT/Low Dose CT Lung Screening IMPRESSION: Lung-RADS category 2 - Continue annual screening with LDCT in 12 months. IMPORTANT NOTES FOR USE: ACR Lung-RADS Version 1.1 Assessment Categories Release Date: 2018 Category: Coded 0-4 bases on nodule(s) with highest degree of suspicion. Negative screen is defined as categories 1 and 2; a positive screen is defined as categories 3 and 4. Category 3 and 4A nodules that are unchanged on interval CT should be coded as category 2, and individuals returned to screening in 12 months. Category 4X: Category 3 or 4 nodules with additional imaging findings that increase the suspicion of lung cancer, such as spiculation, GGN that doubles in size in 1 year, enlarged lymph notes, etc. Category Modifiers: S (significant finding unrelated to lung cancer) Electronically Signed: Prasanna Espinoza MD at 15:01 EDT ,
== END | disposition home or self-care (01) ==
LOC: CT 10:55
PROVIDERS: PCP Internal Medicine; Referring Provider Internal Medicine; Visit Provider Internal Medicine
DX: F17.200 Nicotine dependence, unspecified, uncomplicated (principal)
CPT/HCPCS: 71271

== ENCOUNTER 2024-03-25 21:30 | Emergency (ER) | payer OTHER, SELFPAY ==
[2024-03-25 21:32] VITALS: BP 149/72; PULSE 104; RESP 18; TEMP 36.2; O2SAT 91
[2024-03-25] MEDS: 0.9% Normal Saline (1000mL) 1,000 ML 999 ML IV (22:33)
[2024-03-25] MEDS: Morphine 4 MG/ML Syringe IV (22:33)
[2024-03-25] MEDS: Ondansetron 4 MG/2 ML Vial IV (22:33)
--- NOTE | 2024-03-25 22:40 | RAD_ITS ---
STUDY: X-RAY CHEST REASON FOR EXAM: Female, 59 years old. right rib pain TECHNIQUE: Frontal and lateral views of the chest. COMPARISON: 04/11/2022. FINDINGS: Normal lung volumes. Pulmonary density in both lung bases consistent with atelectasis or less likely infiltrates, right worse than left. Probable trace bilateral pleural effusions. Normal size heart. Normal mediastinum and laurie. Normal visualized pulmonary arteries. Normal visualized aortic arch and descending thoracic aorta. Normal visualized thoracic spine. Normal visualized ribs, clavicles, and shoulders. There is no demonstrated abnormality of the visualized soft tissue structures of the upper abdomen. RAD/Chest PA and Lateral IMPRESSION: Pulmonary density in both lung bases consistent with atelectasis or less likely infiltrates, right worse than left. Probable trace bilateral pleural effusions. Electronically Signed: Akshat Flannery MD at 23:17 EDT ,
[2024-03-25 22:43] LABS: Absolute Lymphocyte Count 0.96 X10^3/uL (0.83-4.51); Absolute Neutrophil Count 12.4 X10^3/uL (2.0-7.7); Basophil# 0.07 X10^3/uL; Basophil% 0.5 % (0-1); Eosinophil# 0.07 X10^3/uL; Eosinophils% 0.5 % (0-5); Hematocrit 42.7 % (37-47); Hemoglobin 13.9 g/dL (12.0-15.0); Lymphocyte # 0.96 X10^3/ul (0.83-4.51); Lymphocyte % 6.5 % (19-41); Mean Corp Hgb Conc 32.6 g/dL (32-36); Mean Corpuscular Hgb 29.4 pg (27.0-32.0); Mean Corpuscular Volume 90.5 fL (81-99); Mean Platelet Vol. 9.8 fl (6.2-12.0); Monocyte# 1.09 X10^3/uL; Monocyte% 7.4 % (0-10); NRBC Flagged by Analyzer 0 % (0-5); Neutrophil # 12.41 X10^3/uL (2.7-7.7); Neutrophil % 84.6 % (47-70); Platelet Count 269 K/mm3 (150-450); RBC Distribution Width SD 46.4 fl (35.1-43.9); Red Blood Count 4.72 M/mm3 (4.2-5.4); White Blood Count 14.7 K/mm3 (4.4-11.0)
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
[2024-03-25 23:01] LABS: ALB/GLOB Ratio 0.8 RATIO (0.9-2.4); AST(SGOT) 18 U/L (15-37); Alanine Aminotransfer ALT/SGPT 27 U/L (13-56); Albumin, Serum 3.3 g/dL (3.2-5.0); Alkaline Phosphatase 131 U/L (45-117); Anion Gap 7 (5-15); BUN 18 mg/dL (7-18); BUN/Creat Ratio 25.7 RATIO (10-20); Calcium,Total 9.2 mg/dL (8.5-10.1); Chloride 108 mmol/L (98-107); EST Glomerular Filtration Rate 91 mL/min (>60); Est Glom Filt Rate - Afr Amer 110 mL/min (>60); Globulin 4.3 g/dL (2.2-4.2); Glucose 124 mg/dL (74-106); Potassium 3.7 mmol/L (3.5-5.1); Protein, Total 7.6 g/dL (6.4-8.2); Sodium Level 139 mmol/L (136-145); Troponin-I HS 4 pg/mL (3.0-54.0)
[2024-03-25 23:23] VITALS: BMI 26.9
[2024-03-25 23:31] VITALS: BP 157/74; PULSE 96; RESP 18; O2SAT 92
[2024-03-26] MEDS: HYDROcodone Bitartrate/Apap 5/325 Tablet PO (00:03)
[2024-03-26] MEDS: Orphenadrine 60 MG/2 ML Ampul 30 MG IV (00:03)
[2024-03-26 00:29] VITALS: BP 151/87; PULSE 94; RESP 18; TEMP 36.8; O2SAT 92
== END 2024-03-26 00:40 | disposition home or self-care (01) ==
PROVIDERS: Emergency Provider Emergency Medicine; PCP Internal Medicine; Visit Provider Emergency Medicine
DX: M54.50 Low back pain, unspecified (principal); V89.2XXA Person injured in unspecified motor-vehicle accident, traffic, initial encounter; R07.81 Pleurodynia; G89.21 Chronic pain due to trauma; F17.210 Nicotine dependence, cigarettes, uncomplicated
CPT/HCPCS: 71046; 80053; 84484; 85025; 93005; 96361; 96374; 96375; 99283; J7030; A4216; J2405

== ENCOUNTER 2024-03-26 18:09 | Emergency (ER) | payer OTHER, SELFPAY ==
[2024-03-26 18:10] VITALS: BP 154/68; PULSE 98; RESP 18; TEMP 35.8; O2SAT 96
== END 2024-03-26 21:59 | disposition left against medical advice (07) ==
LOC: ED 22:39
PROVIDERS: PCP Internal Medicine
DX: Z53.21 Procedure and treatment not carried out due to patient leaving prior to being seen by health care provider (principal)

== ENCOUNTER → 2024-04-19 | Outpatient (CLI) | payer OTHER, SELFPAY ==
--- NOTE | 2024-04-19 09:11 | VDLE_ITS ---
Reason For Study: Pulmonary Embolism RIGHT LEFT GSV is normal. GSV is normal. CFV is compressible, spontaneous, phasic, CFV is compressible, spontaneous, phasic, competent and demonstrates normal competent, and demonstrates normal augmentation. augmentation. FV is compressible, spontaneous, phasic, FV is compressible, spontaneous, phasic, competent and demonstrates normal competent and demonstrates normal augmentation. augmentation. POP V is compressible, spontaneous, phasic, POP V is compressible, spontaneous, phasic, competent and demonstrates normal augmentation. competent and demonstrates normal T/P Trunk is compressible. augmentation. PTV is compressible. T/P Trunk is compressible. LT PerV is compressible. PTV is compressible. Unable to assess Lt mid/distal calf veins due RT PerV is compressible. to recent surgery/bandages/cast. Procedure This is a venous duplex using B-mode, color flow and spectral Doppler. Exam performed in department. A preliminary report was called and/or faxed to Dr. Feliciano. VL/Venous Duplex US - Temo Extrem Interpretation Summary Deep veins of the lower extremities are bilaterally patent and compressible seg mentally. There is no evidence of deep vein thrombosis on either side. Valvular competence appears in tact within the proximal deep venous systems bilaterally. The great saphenous veins appear bila terally patent and compressible segmentally. The left mid- and distal calf veins were not visualiz ed due to the presence of a cast and bandages. Ordering Physician: Lashonda Feliciano Referring Physician: Lashonda Feliciano Performed By: Odette Alonzo, ELLA, RVT
== END | disposition home or self-care (01) ==
PROVIDERS: PCP Internal Medicine; Referring Provider Internal Medicine; Visit Provider Internal Medicine
DX: I26.99 Other pulmonary embolism without acute cor pulmonale (principal)
CPT/HCPCS: 93970

== ENCOUNTER → 2024-11-02 | Outpatient (CLI) | payer OTHER, SELFPAY ==
--- NOTE | 2024-11-02 10:43 | RAD_ITS ---
PROCEDURE: L/S SPINE COMP/W BENDING VIEWS 11/02/2024 REASON FOR EXAM: LUMBAR DEGENERATIVE DISC DISEASE TECHNIQUE: 6 views; AP, lateral, flexion-extension and bilateral oblique COMPARISON: None available FINDINGS: 5 [id number] lumbar vertebral body types identified. Mild rightward thoracolumbar curvature, scoliosis. Concave endplate compression deformity superior endplate T12 with appearing moderate loss of height, L3 and L4 with appearance of mild loss of height. Age indeterminate. No malalignment. L2-3 moderate disc space narrowing L3-4 moderate disc space narrowing L4-5 moderate disc space narrowing with degenerative endplate changes L5-S1 spondylosis/discogenic change. Multilevel lower lumbar spine hypertrophic facet degenerative change No spondylolysis identified. No evidence of instability. RAD/L/S Spine Comp/w Bending Views IMPRESSION: Mild rightward thoracolumbar curvature, scoliosis. Concave endplate compression deformity superior endplate T12 with appearing mod erate loss of height, L3 and L4 with appearance of mild loss of height. Age indeterminate. Multilevel spondylosis/discogenic changes above. Reading Location: [id number]
== END | disposition home or self-care (01) ==
PROVIDERS: PCP Internal Medicine; Referring Provider Clinical Nurse Specialist Adult Health; Visit Provider Clinical Nurse Specialist Adult Health
DX: M51.369 Other intervertebral disc degeneration, lumbar region without mention of lumbar back pain or lower extremity pain (principal)
CPT/HCPCS: 72114

== ENCOUNTER 2024-11-15 10:02 | Day surgery (SDC) | payer OTHER, SELFPAY ==
--- NOTE | 2024-11-12 09:34 | PAT.ANE_ITS ---
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 When Was Last Pacemaker Check QUESTION #4 FULL TEXT: You/Your Family Experience fever (hyperthermia) with Anesthesia Last Oral Intake Last Oral intake: Last Oral Intake NPO since Meds taken in AM with sips of water? Meds patient instructed to take am of surgery PONV PONV - counter dish carrier: PONV - counter dish carrier Female Yes 11/12/24 08:49 HX of Motion Sickness No 11/12/24 08:49 HX of N/V After Surgery Yes 11/12/24 08:49 Non-Smoker No 11/12/24 08:49 Duration of Surgery greater No 11/12/24 08:49 than 60 minutes Number of Risk Factors 2 11/12/24 08:49 PONV Score Moderate Risk 11/12/24 08:49 Height & Weight Height & Weight: Anesthesia: Height & Weight Height 5 ft 9 in 03/26/24 18:10 Respiratory Assessment Respiratory Assessment - counter dish carrier: Respiratory Tract Infection Hx - counter dish carrier Hx Respiratory Tract Infection No 11/12/24 08:49 STOP Sleep Apnea STOP Sleep Apnea - counter dish carrier: STOP Sleep Apnea - counter dish carrier Hx Hypertension No 11/12/24 08:49 Hx Sleep Apnea No 11/12/24 08:49 CPAP No 08/20/21 12:10 BIPAP Do you snore loudly (louder No 11/12/24 08:49 than talking or can be heard Do you often feel tired/ Yes 11/12/24 08:49 fatigued/ sleepy during daytime? Has anyone observed you stop No 11/12/24 08:49 breathing during sleep? STOP Results Negative 11/12/24 08:49 QUESTION #5 FULL TEXT : Do you snore loudly (louder than talking or can be heard through closed doors)? 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 Specify any problems Hx of Preganancy in last 3 No 11/12/24 08:49 Months Nurse Filling Out Transfusion DSCHRIBER 11/12/24 08:49 & Questions: Date: 11/12/24 11/12/24 08:49 Time: 08:51 11/12/24 08:49 Patient unable to answer at this time (ie. confused, unrespo /Reproduction History /Reproductive History - counter dish carrier: /Reproductive Hx- counter dish carrier Hx Now No 11/12/24 08:49 Gestational Age (in weeks): EDC: Hx Hx Para Hx Section SAB No 11/12/24 08:49 PFSH Medical History (Updated 11/12/24 @ 09:01 by Caitlyn Ornelas) Wears glasses Cancer Pulmonary embolism Restless legs Syncope COPD (chronic obstructive pulmonary disease) History of pain when walking History of edema Pain Impingement of left shoulder Left shoulder pain Wears contact lenses Depression Anxiety Diabetes Arthritis High cholesterol Back pain Injury of head and neck Tremor Heartburn Smoker Shortness of breath on exertion History of echocardiogram Hx of tilt table evaluation History of stress test Cardiology follow-up encounter Perirectal abscess Pure hypercholesterolemia Chronic low back pain HLD (hyperlipidemia) Syncope and collapse Chest pain Home Medications ?Medication ?Instructions ?Recorded ?Last Taken ?Type duloxetine 60 mg capsule,delayed 60 mg PO DAILY 03/15/16 History release amitriptyline 50 mg tablet 100 mg PO QHS 09/10/17 Unkn own History clonazepam 0.5 mg tablet 0.5 mg PO BID 02/22/19 Unkno wn History cariprazine 1.5 mg capsule 1.5 mg PO DAILY DEPRESSION 01/21/20 Unknown History (Vraylar) primidone 50 mg tablet 100 mg PO DAILY 01/21/20 Unk nown History topiramate 50 mg tablet 25 mg PO BID 01/21/20 Unknow n History cholecalciferol (vitamin D3) 25 25 mcg PO DAILY Unknown History mcg (1,000 unit) capsule mecobalamin (vitamin B12) 1,000 1,000 mcg PO FR Unknown History mcg lozenges ondansetron 4 mg disintegrating 4 mg PO Q6H PRN nausea and 03/26/24 Unknown Rx tablet vomiting #14 tabs apixaban 5 mg tablet (Eliquis) 5 mg PO BID 07/20/24 History orphenadrine citrate 100 mg 100 mg PO BID 07/20/24 Unk nown History tablet,extended release omeprazole 20 mg capsule,delayed 20 mg PO DAILY Unknown History release oxycodone 5 mg tablet 5 mg PO TID PRN pain 5 Unknown History rosuvastatin 40 mg tablet 40 mg PO QHS 11/12/24 Unknow n History trazodone 300 mg tablet 450 mg PO QHS 11/12/24 Unkno wn History Allergy/AdvReac Type Severity Reaction Status Date / Time cyclobenzaprine (From Allergy Intermediate migraine Verified 11/12/24 08:43 Flexeril) metaxalone Allergy Anaphylaxis Verified 11/12/24 08:43 amoxicillin (From Augmentin) AdvReac Nausea Verified 11/12/24 08:43 clavulanic acid (From AdvReac Nausea Verified 11/12/24 08:43 Augmentin) ANTI FUNGALS Allergy Rash Uncoded 07/20/24 09:30 Family History Mother Anxiety and depression Grandfather CVA (cerebral vascular accident) Hypertension Grandmother Diabetes Surgical History (Updated 11/12/24 @ 09:01 by Caitlyn Ornelas) Hx of partial nephrectomy History of ankle surgery (~03/2024) History of carpal tunnel surgery Status post simin-rectal abscess repair, follow-up exam History of surgical removal of ganglion cyst H/O laminectomy H/O: hysterectomy (~1979) cervical fusion (~06/2010) Social History Smoking Status: Current every day smoker tobacco type: cigarettes Electronic Cigarette Use: with nicotine alcohol intake: current substance use type: does not use caffeine: Yes Type: tea Number of servings: 2 what type of physical activity do you participate in: other details: riding horses seatbelt use: sometimes do you feel safe at home: Yes Audit: Pertinent Findings Pertinent Findings EKG Perinent findings: 25-Mar-2024 22:59:09 [facility] FID:[id number] ROUTINE RETRIEVAL 1965 (59 yr) Female White Room:ED20 Loc:2 Slip Box Changer: SHAILA Test ind:CP Vent. rate 94 BPM OK interval 120 ms QRS duration 90 ms QT/QTcB 354/442 ms P-R-T axes 41 60 -35 Normal sinus rhythm Left ventricular hypertrophy with repolarization abnormality ( Sokolow-Estes ) Abnormal ECG Confirmed by AUGUSTIN SOLORIO ([id number]), dictionary editor DB CHAMPION ([id number]) on 03/26/2024 2:58:38 PM Recommendation Anesthesia Recommendation Anesthesia recommendation: OPTIMIZED for anesthesia
[2024-11-15] VITALS (7 sets, daily range): BP systolic 124–137; BP diastolic 54–82; PULSE 84–91; RESP 18; TEMP 36.8–37.1; O2SAT 92–95; BMI 27.3
--- NOTE | 2024-11-15 10:07 | PRE.ANES_ITS ---
ASA Classification* ASA Classification ASA Classification: 2 Assessment & Plan Anesthesia* Anesthesia Assessment Anesthesia Assessment: Discussed sedation and/or anesthesia options, risks, benefits, and alternatives with patient/parents/legal guardian/POA. Questions invited. The patient/parents/legal guardian/POA seems to understand and agrees to proceed with anesthesia plan. Reviewed the physical assessment, medical history, allergy history and patient home medications list prior to surgery/procedure/anesthetic and documented any changes. Performed airway and anesthesia risk assessments. Anesthesia Type Anesthesia Type: MAC Anesthesia Focused Assessment* Airway Assessment Mouth opens: >3 cm Mallampati Score: II Focused Labs Anesthesia Preop lab: CBC WBC 14.7 K/mm3 (4.4-11.0) H 03/25/24 22:37 4 RBC 4.72 M/mm3 (4.2-5.4) 03/25/24 22:37 03/25/24 Hgb 13.9 g/dL (12.0-15.0) 03/25/24 22:37 03/25/24 Hct 42.7 % (37-47) 03/25/24 22:37 03/25/24 Plt Count 269 K/mm3 (150-450) 03/25/24 22:37 03/25/24 CHEMISTRY Potassium 3.7 mmol/L (3.5-5.1) 03/25/24 22:37 03/25/24 Sodium 139 mmol/L (136-145) 03/25/24 22:37 03/25/24 BUN 18 mg/dL (7-18) 03/25/24 22:37 03/25/24 Creatinine 0.70 mg/dL (0.55-1.02) 03/25/24 22:37 03/25/24 Glucose 124 mg/dL (74-106) H 03/25/24 22:37 03/25/24 POC Glucose 105 mg/dL (70-110) 12/05/16 07:27 12/05/16 TSH 1.13 uIU/mL (0.358-3.74) 04/24/17 12:56 COAG Pre-Assessment Diagnosis/Proposed Procedure Planned Operative Procedure(s): CAUDAL EPIDURAL STEROID INJECTION UNDER FLUOROSCOPY Anesthesia History 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 When Was Last Pacemaker Check QUESTION #4 FULL TEXT: You/Your Family Experience fever (hyperthermia) with Anesthesia Last Oral Intake Last Oral intake: Last Oral Intake NPO since Meds taken in AM with sips of water? 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 Has anyone observed you stop No 11/12/24 08:49 breathing during sleep? STOP Results Negative 11/12/24 08:49 QUESTION #5 FULL TEXT : Do you snore loudly (louder than talking or can be heard through closed doors)? 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 Specify any problems Hx of Preganancy in last 3 No 11/12/24 08:49 Months Nurse Filling Out Transfusion DSCHRIBER 11/12/24 08:49 & Questions: Date: 11/12/24 11/12/24 08:49 Time: 08:51 11/12/24 08:49 Patient unable to answer at this time (ie. confused, unrespo /Reproduction History /Reproductive History - cnc operator machinist: /Reproductive Hx- cnc operator machinist Hx Now No 11/12/24 08:49 Gestational Age (in weeks): EDC: Hx Hx Para Hx Section SAB No 11/12/24 08:49 PFSH Medical History Wears glasses Cancer Pulmonary embolism Restless legs Syncope COPD (chronic obstructive pulmonary disease) History of pain when walking History of edema Pain Impingement of left shoulder Left shoulder pain Wears contact lenses Depression Anxiety Diabetes Arthritis High cholesterol Back pain Injury of head and neck Tremor Heartburn Smoker Shortness of breath on exertion History of echocardiogram Hx of tilt table evaluation History of stress test Cardiology follow-up encounter Perirectal abscess Pure hypercholesterolemia Chronic low back pain HLD (hyperlipidemia) Syncope and collapse Chest pain Home Medications ?Medication ?Instructions ?Recorded ?Last Taken ?Type duloxetine 60 mg capsule,delayed 60 mg PO DAILY 03/15/16 History release amitriptyline 50 mg tablet 100 mg PO QHS 09/10/17 Unkn own History clonazepam 0.5 mg tablet 0.5 mg PO BID 02/22/19 Unkno wn History cariprazine 1.5 mg capsule 1.5 mg PO DAILY DEPRESSION 01/21/20 Unknown History (Vraylar) primidone 50 mg tablet 100 mg PO DAILY 01/21/20 Unk nown History topiramate 50 mg tablet 25 mg PO BID 01/21/20 Unknow n History cholecalciferol (vitamin D3) 25 25 mcg PO DAILY Unknown History mcg (1,000 unit) capsule mecobalamin (vitamin B12) 1,000 1,000 mcg PO FR Unknown History mcg lozenges ondansetron 4 mg disintegrating 4 mg PO Q6H PRN nausea and 03/26/24 Unknown Rx tablet vomiting #14 tabs apixaban 5 mg tablet (Eliquis) 5 mg PO BID 07/20/24 History orphenadrine citrate 100 mg 100 mg PO BID 07/20/24 Unk nown History tablet,extended release omeprazole 20 mg capsule,delayed 20 mg PO DAILY Unknown History release oxycodone 5 mg tablet 5 mg PO TID PRN pain 5 Unknown History rosuvastatin 40 mg tablet 40 mg PO QHS 11/12/24 Unknow n History trazodone 300 mg tablet 450 mg PO QHS 11/12/24 Unkno wn History Allergy/AdvReac Type Severity Reaction Status Date / Time cyclobenzaprine (From Allergy Intermediate migraine Verified 11/12/24 08:43 Flexeril) metaxalone Allergy Anaphylaxis Verified 11/12/24 08:43 amoxicillin (From Augmentin) AdvReac Nausea Verified 11/12/24 08:43 clavulanic acid (From AdvReac Nausea Verified 11/12/24 08:43 Augmentin) ANTI FUNGALS Allergy Rash Uncoded 07/20/24 09:30 Family History Mother Anxiety and depression Grandfather CVA (cerebral vascular accident) Hypertension Grandmother Diabetes Surgical History Hx of partial nephrectomy History of ankle surgery (~03/2024) History of carpal tunnel surgery Status post simin-rectal abscess repair, follow-up exam History of surgical removal of ganglion cyst H/O laminectomy H/O: hysterectomy (~1979) cervical fusion (~06/2010) Social History Smoking Status: Current every day smoker tobacco type: cigarettes Electronic Cigarette Use: with nicotine alcohol intake: current substance use type: does not use caffeine: Yes Type: tea Number of servings: 2 what type of physical activity do you participate in: other details: riding horses seatbelt use: sometimes do you feel safe at home: Yes Review of Systems (Anesthesia) ROS Narrative System reviewed and no additional complaints, except as documented.
[2024-11-15] MEDS: Lactated Ringers 1,000 ML 15 ML IV (10:30)
--- NOTE | 2024-11-15 10:35 | RAD_ITS ---
PROCEDURE: FLUOR GUIDANCE FOR SPINE INJ 11/15/2024 REASON FOR EXAM: BLOCK, CAUDAL TECHNIQUE: Intraoperative fluoroscopic services provided for caudal block. 4.4 seconds of fluoroscopy. 1.34 mGy. 1 image was submitted. COMPARISON: None FINDINGS: Intraoperative imaging provided for caudal block. RAD/Fluor Guidance for Spine Inj IMPRESSION: Intraoperative imaging provided for caudal block. Reading Location: [id number]
[2024-11-15 10:53] LABS: Bedside Glucose 115 mg/dL (74-106)
[2024-11-15] MEDS: Lidocaine 1% (20 ml mdv) 20 ML Vial (11:06)
[2024-11-15] MEDS: Bupivacaine 0.25% 30 ML Vial (11:06)
[2024-11-15] MEDS: MethylPREDNISolone Acetate 80 MG/ML Vial (11:07)
[2024-11-15] MEDS: 0.9% Normal Saline (Pres. free 10 ML Vial (11:07)
--- NOTE | 2024-11-15 11:10 | OP.PCM_ITS ---
Operative Report (Standard) Operative Information Date of Procedure: 11/15/24 Pre-Operative Diagnosis: Lumbosacral radiculopathy, postlaminectomy syndrome of the lumbar spine, lumbosacral spinal stenosis Post-Operative Diagnosis: Lumbosacral radiculopathy, postlaminectomy syndrome of the lumbar spine, lumbosacral spinal stenosis Surgery/Procedure Performed: Diagnostic/therapeutic caudal epidural steroid injection under fluoroscopic guidance command and control specialist: No Type of Anesthesia: Local MAC RN Documented Start/Stop Times: Operation Date: 11/15/24 11:35 Case Time Into Pre-Op 11/15/24 10:19 Out of Pre-Op 11/15/24 10:52 Anesthesia Start 11/15/24 10:59 Into Room 11/15/24 10:59 Procedure Start 11/15/24 11:06 Procedure End 11/15/24 11:08 Procedure Start Time: 11:11 Procedure Stop Time: 11:11 Select all DRAINS/GRAFTS/IMPLANTS that apply: None Estimated Blood Loss: 0 Specimen collected: No Description of surgery: History and physical of today was reviewed. Risks and benefits of the procedure were explained. The patient understood and agreed to proceed. Informed consent was obtained. IV inserted per routine protocol. The patient was taken to the operating room and placed in the prone position with a pillow positioned underneath the abdomen. The lower back and tailbone area was prepped and draped in a sterile fashion using iodine x3. Under fluoroscopy guidance on a lateral view, the caudal space was identified. The skin and subcutaneous tissue was anesthetized with approximately 3 mL of 1% lidocaine using a 25-gauge regular needle. Under direct visualization with fluoroscopy, using a 22-gauge 3-1/2-inch spinal needle, the needle was advanced via the skin through the sacral hiatus. The tip of the needle was passed through the sacrococcygeal ligament and advanced to approximately S4 area. After negative aspiration of blood or CSF, a total of 3 mL of contrast was injected to confirm correct pl acement of the needle as well as cephalad spread. The spread was followed to approximately L5 area. After confirmation on AP as well as lateral view and repeated negative aspiration, a total of 15 mL of preservative-free 0.125% Marcaine with 80 mg of Depo-Medrol was injected easily. The needle was then removed intact. The patient experienced no sign or symptoms of intrathecal or intravascular injection. The patient experienced no paresthesia. The procedure was completed without any apparent difficulty or any complications. The patient appeared to tolerate it well. ASSESSMENT AND PLAN: This is a 59-year-old female with lumbosacral radiculopathy, postlaminectomy syndrome of the lumbar spine, lumbosacral degenerative disc disease, lumbosacral spinal stenosis status post diagnostic/therapeutic caudal epidural steroid injection, patient will continue her current medications, patient will follow in approximately 2 weeks for reevaluation. Surgical Findings: 0 Complications Complications: No Admit VTE Documentation VTE Present on Admission: No VTE Mechan Device Prophylaxis: None
--- NOTE | 2024-11-15 11:50 | PCM.POST.ANE ---
Anesthesia: Postop Eval I Current Vital Signs Temperature: 98.7 F Pulse Rate: 84 Blood Pressure: 137/68 Respiratory Rate: 18 Pulse Ox: 95 Oxygen Delivery Method: Room Air Assessment Airway patent: Yes Spontaneous unlabored respirations: Yes Mental status: Awake nausea: No Vomiting: No Anesthesia Complication: No Fluid Hydration Crystalloid volume administer (ml): 20 Total IV fluid infused: 20 Progress Note Anesthesia document: Postop Eval 1 completed: Yes
--- NOTE | 2024-11-15 11:56 | PCM.POSTANE2 ---
Anesthesia Postop Eval I Sum Postop Eval Completion status Anesthesia document: Postop Eval 1 completed: Yes Anesthesia Postop Eval I Summary Anesthesia Postop Eval I Summary: Anesthesia Postop Eval I: Assessment Summary Airway patent Yes 11/15/24 11:51 Spontaneous unlabored Yes 11/15/24 11:51 respirations Mental status Awake 11/15/24 11:51 nausea No 11/15/24 11:51 Vomiting No 11/15/24 11:51 Anesthesia Postop Eval I: Fluid Summary Crystalloid volume administer 20 11/15/24 11:51 (ml) Colloids volume administered ( ml) Blood Product volume administered (ml) Total IV fluid infused 20 11/15/24 11:51 Anesthesia Postop Eval I: Summary Notes Anesthesia Complication No 11/15/24 11:51 Anesthesia Complication Comment: Post-operative progress note Anesthesia: Postop Eval II Evaluation Mental status: Awake Pain Level: 1 nausea: No Vomiting: No
== END 2024-11-15 11:47 | disposition home or self-care (01) ==
LOC: SDC 10:02 → AC 10:03
PROVIDERS: PCP Internal Medicine; Referring Provider Anesthesiology Pain Medicine; Visit Provider Anesthesiology Pain Medicine
PROC: 3E0S3BZ Introduction of Anesthetic Agent into Epidural Space, Percutaneous Approach (ICD-10-PCS; CPT 62282; principal; 2024-11-15 11:30)
DX: M54.17 Radiculopathy, lumbosacral region (principal); M48.07 Spinal stenosis, lumbosacral region; M96.1 Postlaminectomy syndrome, not elsewhere classified; F17.210 Nicotine dependence, cigarettes, uncomplicated; Z79.01 Long term (current) use of anticoagulants; Z79.899 Other long term (current) drug therapy
CPT/HCPCS: 62323; 64490; 77003; 82962

== ENCOUNTER → 2024-11-18 | Outpatient (CLI) | payer OTHER, SELFPAY | END | disposition home or self-care (01) | LOC: PSN 06:47 | PROVIDERS: PCP Internal Medicine; Referring Provider Internal Medicine; Visit Provider Internal Medicine | DX: J44.9 Chronic obstructive pulmonary disease, unspecified (principal) | CPT/HCPCS: 94060; 94726; 94729 ==

== ENCOUNTER → 2024-12-16 | Outpatient (CLI) | payer OTHER, SELFPAY ==
--- NOTE | 2024-12-16 09:05 | CT_ITS ---
PROCEDURE: ABDOMEN/PELVIS WITH CONTRAST 12/16/2024 REASON FOR EXAM: LUQ PAIN TECHNIQUE: ABDOMEN/PELVIS WITH CONTRAST. Coronal and Sagittal reconstruction series were provided. ORAL CONTRAST TYPE: Readi-Cat CONTRAST: Isovue 370 VOLUME: 98 mL One or more dose reduction techniques were used (e.g., Automated exposure control, adjustment of the mA and/or kV according to patient size, use of iterative reconstruction technique. RADIATION DOSE SUMMARY: CTDlvol: 75.00 mGy DLP: 2327.42 mGycm COMPARISON: CT abdomen and pelvis with IV contrast, 10/03/2018 FINDINGS: Lung bases: There is linear scarring in both lung bases. There are no pleural effusions. The heart size is normal. There is no pericardial effusion. There is no calcific vascular disease of the coronary arteries evident. Liver: Normal. Gallbladder: Normal. Spleen: Normal. Pancreas: Normal. Adrenals: Normal. Kidneys: There are 2 benign-appearing cortical cysts in the left kidney, 1 in the upper pole and 1 in the interpolar region. Bladder: Normal. Reproductive Organs: The uterus is surgically absent. The ovaries are not identified. There is no free fluid in the pelvis. There is no pelvic or inguinal lymphadenopathy. Bowel: There are few colonic diverticuli without evidence of acute inflammation. Appendix: Normal. Lymph nodes: There is no mesenteric or retroperitoneal lymphadenopathy. Vasculature: There is mild calcific vascular disease of the abdominal aorta. The inferior vena cava and portal venous system are normal. Peritoneum / Retroperitoneum: There are no intra or retroperitoneal masses or lymphadenopathy. There is a 6 mm in diameter umbilical hernia containing normal fat. Bones: There is multilevel degenerative disc disease of the lower thoracic and lumbar spine. There are large Schmorl's nodes at the superior endplates of T11, T12, L3 and L4. These were not present previously. There is also a compression fracture of the superior endplate of T12, not present previously. CT/Abdomen/Pelvis WITH Contrast IMPRESSION: 1. Colonic diverticulosis without diverticulitis. 2. Multiple Schmorl's nodes which have developed since the prior exam. 3. There is a compression fracture of the superior endplate of T12 which was n ot present previously. 4. Other findings as noted. Reading Location: [id number]
--- NOTE | 2024-12-16 09:05 | CT_ITS ---
PROCEDURE: CTA CHEST W/WO CONTRAST 12/16/2024 REASON FOR EXAM: CTA CHEST WITH CONTRAST - RE-EVAL PE TECHNIQUE: CTA CHEST W/WO CONTRAST Multiplanar Sagittal and Coronal images were obtained. CONTRAST: Isovue 370 VOLUME: 98 mL One or more dose reduction techniques were used (e.g., Automated exposure control, adjustment of the mA and/or kV according to patient size, use of iterative reconstruction technique). RADIATION DOSE SUMMARY: CTDlvol: 67.60 mGy DLP: 2327.42 mGycm COMPARISON: CT low-dose lung screen, 01/07/2023 # of known CTs in the past 12 months: 0 # of known Cardiac Nuclear Medicine Studies in the past 12 months: 0 FINDINGS: Thoracic Aorta: There is minimal calcific vascular disease of the thoracic aorta. There is no evidence of thoracic aortic aneurysm or aortic dissection. Measurements (cm): Mid ascendin.7 cm Proximal descendin.1 cm Heart: The heart size is normal. There is no pericardial effusion. There is calcific vascular disease of the coronary arteries. Pulmonary Vessels: There is no evidence of pulmonary emboli. The main pulmonary artery is normal in diameter. Lymph nodes: There is no mediastinal lymphadenopathy. There is a right hilar lymph node measuring 1.4 x 1.1 cm. Lungs and Airways: There are scattered air cyst bilaterally. There is linear scarring in the basilar segments of both lower lobes. There are no pulmonary nodules or masses. Pleura: There are no pleural effusions. Upper Abdomen: There is calcific vascular disease of the visualized abdominal aorta. Chest wall: The visualized soft tissues of the chest wall appear unremarkable. There is a large Schmorl's node in the superior endplate of T12 with an associated compression fracture which appears chronic, but has occurred since the prior exam. There is a large Schmorl's node in the superior endplate of T11. Status post anterior interbody fusion, C6-7. CT/CTA Chest W/WO Contrast IMPRESSION: 1. No evidence of pulmonary emboli. 2. Interval development of a compression fracture of the superior endplate of T12. 3. The lungs are unchanged. Reading Location: [id number]
--- NOTE | 2024-12-16 09:05 | ECHOD_ITS ---
Reason For Study Reason For Study: Edema Procedure This was a 2D Doppler, Color Flow transthoracic echocardiogram. Exam performed in department. Left Ventricle Normal LV size. The estimated ejection fraction is 60 %. No evidence for diastolic dysfunction. No regional wall motion abnormalities noted. Right Ventricle Normal RV size. Normal systolic function. Atria The left and right atria are normal. No doppler evidence for ASD. Mitral Valve There is no mitral valve stenosis. No mitral valve insufficiency. Tricuspid Valve There is no tricuspid stenosis. Unable to estimate RV systolic pressure due to inadequate jet, pulmonary artery pressure probably normal. Aortic Valve Trisinus/trileaflet aortic valve. There is no aortic stenosis. No aortic valve insufficiency. Pulmonic Valve There is no pulmonic valvular stenosis. No pulmonic valve insufficiency. Great Vessels Normal sized aortic root. Pericardium/Pleural Trivial pericardial effusion. MMode/2D Measurements & Calculations LVIDd: 4.6 cm IVSd: 1.3 cm Ao root diam: 2.6 cm LVIDs: 3.0 cm LVPWd: 0.75 cm RVDd: 2.9 cm FS: 34.1 % LAV(MOD-bp): 49.0 ml LVAd ap4: 27.6 cm2 SV(MOD-sp4): 36.2 ml LAV(MOD-bp) Indexed: 24.8 ml/m2 LVLd ap4: 8.5 cm SI(MOD-sp4): 18.4 ml/m2 LAV(MOD-sp2): 44.8 ml EDV(MOD-sp4): 72.4 ml LAV(MOD-sp4): 43.9 ml EDV(sp4-el): 76.1 ml LVAs ap4: 17.9 cm2 LVLs ap4: 7.5 cm ESV(MOD-sp4): 36.1 ml ESV(sp4-el): 36.5 ml EF(MOD-sp4): 50.1 % EF(sp4-el): 52.0 % SV(sp4-el): 39.6 ml LA A4 area: 18.1 cm2 LA dimension(2D): 3.5 cm RA A4 area: 12.9 cm2 TAPSE: 1.9 cm Time Measurements MV dec time: 0.19 sec Doppler Measurements & Calculations MV E max jett: 61.1 cm/sec Lat Peak E' Jett: 10.4 cm/sec Med Peak E' Jett: 10.1 cm/sec MV A max jett: 64.1 cm/sec E/E' lat: 5.9 E/E' med: 6.0 MV E/A: 0.95 MV V2 max: 76.4 cm/sec MV P1/2t max jett: 75.5 cm/sec Ao V2 max: 130.2 cm/sec MV max P.3 mmHg MV P1/2t: 66.2 msec Ao max P.8 mmHg MV V2 mean: 48.3 cm/sec Ao V2 mean: 88.8 cm/sec MV mean P.1 mmHg MV dec slope: 333.9 cm/sec2 Ao mean P.6 mmHg MV V2 VTI: 15.6 cm MVA(P1/2t): 3.3 cm2 Ao V2 VTI: 27.4 cm AV (velocity ratio): 0.85 LV V1 max: 90.9 cm/sec LV V1 max P.3 mmHg LV V1 mean P.9 mmHg LV V1 mean: 63.6 cm/sec LV V1 VTI: 23.2 cm ECHO/Echo Complete Interpretation Summary The estimated ejection fraction is 60 %. No evidence for diastolic dysfunction. Trivial pericardial effusion. Ordering Physician: Lashonda Feliciano Referring Physician: Lashonda Feliciano Performed By: Nixon Painter RCS
[2024-12-16 09:33] LABS: CREATININE FINGERSTICK < 1.0 mg/dL (0.55-1.02); EGFR FINGERSTICK > 60.0000 mL/min (>60)
== END | disposition home or self-care (01) ==
LOC: CT 09:03
PROVIDERS: PCP Internal Medicine; Referring Provider Internal Medicine; Visit Provider Internal Medicine
DX: I26.99 Other pulmonary embolism without acute cor pulmonale (principal); R10.12 Left upper quadrant pain; R60.0 Localized edema
CPT/HCPCS: 71275; 74177; 93306; Q9967

== ENCOUNTER → 2025-01-11 | Outpatient (CLI) | payer OTHER, SELFPAY ==
--- NOTE | 2025-01-11 14:54 | MRI_ITS ---
PROCEDURE: SPINE THORACIC (ROUTINE) 01/11/2025 REASON FOR EXAM: COMPRESSION FRACTURE OF T12 VERTEBRA TECHNIQUE: Multiplanar and multisequential MRI of the thoracic spine was performed without contrast. COMPARISON: CT chest abdomen and pelvis 12/16/2024. FINDINGS: No acute fracture or subluxation. Redemonstrated chronic compression fracture deformity involving the superior endplate of T12 likely with a pre-existing prominent degenerative Schmorl's node, with roughly 50% height loss. No marrow edema, and no substantial retropulsion. Remaining vertebral body heights are preserved without evidence of fracture. Mild multilevel spondylotic changes with varying degrees of disc desiccation, and several vertebral endplate degenerative Schmorl's nodes, and small anterior osteophytes. No significant disc bulge, spinal canal or neural foraminal narrowing is present. No suspicious osseous lesion. Postoperative changes of anterior cervical discectomy and fusion at C6-C7 with associated metallic susceptibility artifact. The visualized spinal cord is normal in signal and contour. No abnormal collection is seen within the spinal canal. Unremarkable paravertebral soft tissues. Partially imaged simple left renal cyst. MRI/Spine Thoracic (Routine) IMPRESSION: No acute fracture or subluxation. Redemonstrated chronic superior endplate com pression fracture of T12, no retropulsion. Mild multilevel spondylotic changes as described. Reading Location: [id number]
== END | disposition home or self-care (01) ==
LOC: MRI 14:46
PROVIDERS: PCP Internal Medicine; Referring Provider Internal Medicine; Visit Provider Internal Medicine
DX: S22.080A Wedge compression fracture of T11-T12 vertebra, initial encounter for closed fracture (principal); X58.XXXA Exposure to other specified factors, initial encounter
CPT/HCPCS: 72146

== ENCOUNTER → 2025-02-08 | Outpatient (CLI) | payer OTHER, SELFPAY ==
--- NOTE | 2025-02-08 09:37 | BD_ITS ---
PROCEDURE: DEXA BONE DENSITY STUDY 02/08/2025 REASON FOR EXAM: F, age 60 y/o . Postmenopausal. TECHNIQUE: DEXA BONE DENSITY STUDY COMPARISON: Prior study dated June 18, 2018. FINDINGS: BMD and T-SCORES Lumbar spine: 1.003 g/cm2, T-score -0.4 Levels: L1 through L4 Change from prior: Improvement of 1.1%. Left femoral neck: 0.685 g/cm2, T-score -1.5 Femoral neck comparison data not recommended for monitoring change. Left total hip: 0.943 g/cm2, T-score 0.0 Improvement of 9.4% Right femoral neck: 0.727 g/cm2, T-score -1.1 Femoral neck comparison data not recommended for monitoring change. Right total hip: 0.862 g/cm2, T-score -0.7 Change from prior: Improvement of 8.5%. The World Health Organization has defined the following categories based on bone density: Normal bone density: T-score equal to or greater than -1.0 Osteopenia: T-score between -1.0 and -2.5 Osteoporosis: T-score equal to or less than -2.5 The patient does meet the pharmacological treatment recommendations for prevention of osteoporosis. BD/Dexa Bone Density Study IMPRESSION: OSTEOPENIA. Recommend follow-up as clinically warranted. Reading Location: [place] [id number]
== END | disposition home or self-care (01) ==
LOC: OPBD 09:36
PROVIDERS: PCP Internal Medicine; Referring Provider Anesthesiology Pain Medicine; Visit Provider Anesthesiology Pain Medicine
DX: M81.0 Age-related osteoporosis without current pathological fracture (principal); S22.49XA Multiple fractures of ribs, unspecified side, initial encounter for closed fracture; X58.XXXA Exposure to other specified factors, initial encounter; Z78.0 Asymptomatic menopausal state
CPT/HCPCS: 77080

== ENCOUNTER 2025-02-14 06:38 | Day surgery (SDC) | payer OTHER, SELFPAY ==
--- NOTE | 2025-02-07 17:17 | PAT.ANE_ITS ---
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 When Was Last Pacemaker Check QUESTION #4 FULL TEXT: You/Your Family Experience fever (hyperthermia) with Anesthesia Last Oral Intake Last Oral intake: Last Oral Intake NPO since Meds taken in AM with sips of water? 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 Has anyone observed you stop No 02/07/25 15:45 breathing during sleep? STOP Results Negative 02/07/25 15:45 QUESTION #5 FULL TEXT : Do you snore loudly (louder than talking or can be heard through closed doors)? 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 Specify any problems Hx of Preganancy in last 3 No 02/07/25 15:45 Months Nurse Filling Out Transfusion JZOLLINGE 02/07/25 15:45 & Questions: Date: 02/07/25 02/07/25 15:45 Time: 15:47 02/07/25 15:45 Patient unable to answer at this time (ie. 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: /Reproductive Hx- vending machine coin collector Hx Now No 02/07/25 15:45 Gestational Age (in weeks): EDC: Hx Hx Para Hx Section SAB No 02/07/25 15:45 PFSH Medical History (Updated 02/07/25 @ 15:45 by Aury Rush) Dietary restriction Wears glasses Cancer Pulmonary embolism Restless legs Syncope COPD (chronic obstructive pulmonary disease) History of pain when walking History of edema Pain Impingement of left shoulder Left shoulder pain Wears contact lenses Depression Anxiety Diabetes Arthritis High cholesterol Back pain Injury of head and neck Tremor Heartburn Smoker Shortness of breath on exertion History of echocardiogram Hx of tilt table evaluation History of stress test Cardiology follow-up encounter Perirectal abscess Pure hypercholesterolemia Chronic low back pain HLD (hyperlipidemia) Syncope and collapse Chest pain Home Medications ?Medication ?Instructions ?Recorded ?Last Taken ?Type duloxetine 60 mg capsule,delayed 60 mg PO DAILY 03/15/16 History release amitriptyline 50 mg tablet 100 mg PO QHS 09/10/17 Unkn own History clonazepam 0.5 mg tablet 0.5 mg PO BID 02/22/19 Unkno wn History cariprazine 1.5 mg capsule 1.5 mg PO DAILY DEPRESSION 01/21/20 Unknown History (Vraylar) primidone 50 mg tablet 100 mg PO DAILY 01/21/20 Unk nown History topiramate 50 mg tablet 25 mg PO BID 01/21/20 Unknow n History cholecalciferol (vitamin D3) 25 25 mcg PO DAILY Unknown History mcg (1,000 unit) capsule orphenadrine citrate 100 mg 100 mg PO BID 07/20/24 Unk nown History tablet,extended release omeprazole 20 mg capsule,delayed 20 mg PO DAILY Unknown History release oxycodone 5 mg tablet 5 mg PO TID PRN pain 5 Unknown History rosuvastatin 40 mg tablet 40 mg PO QHS 11/12/24 Unknow n History trazodone 300 mg tablet 450 mg PO QHS 11/12/24 Unkno wn History linaclotide 145 mcg capsule 145 mcg PO QAM #30 caps Unknown Rx (Linzess) solifenacin 10 mg tablet 10 mg PO 02/07/25 Unknown Hi story Allergy/AdvReac Type Severity Reaction Status Date / Time cyclobenzaprine (From Allergy Intermediate migraine Verified 02/07/25 15:35 Flexeril) metaxalone Allergy Anaphylaxis Verified 02/07/25 15:35 amoxicillin (From Augmentin) AdvReac Nausea Verified 02/07/25 15:35 clavulanic acid (From AdvReac Nausea Verified 02/07/25 15:35 Augmentin) ANTI FUNGALS Allergy Rash Uncoded 07/20/24 09:30 Family History Mother Anxiety and depression Grandfather CVA (cerebral vascular accident) Hypertension Grandmother Diabetes Surgical History Hx of partial nephrectomy History of ankle surgery (~03/2024) History of carpal tunnel surgery Status post simin-rectal abscess repair, follow-up exam History of surgical removal of ganglion cyst H/O laminectomy H/O: hysterectomy (~1979) cervical fusion (~06/2010) Social History Smoking Status: Heavy Smoker (>10/day) Electronic Cigarette Use: with nicotine alcohol intake: current substance use type: does not use caffeine: Yes Type: tea Number of servings: 2 what type of physical activity do you participate in: other details: riding horses seatbelt use: sometimes do you feel safe at home: Yes Audit: Pertinent Findings Pertinent Findings EKG Perinent findings: March 25, 2024. Normal sinus rhythm. Left ventricular hypertrophy with repolarization abnormality. Echo (EF%) pertinent findings: December 16, 2024. EF is 60%. No aortic stenosis. Consult pertinent findings: January 21, 2020. 1. Syncope and collapse-continue volume intake to avoid dehydration. Monitor positional changes. No recent near syncopal or syncopal events. 2. Chest pain-no ongoing chest discomfort at this time. Continue risk factor modification and medical therapy. Recommendation Anesthesia Recommendation Anesthesia recommendation: OPTIMIZED for anesthesia
[2025-02-14] VITALS (8 sets, daily range): BP systolic 130–164; BP diastolic 64–88; PULSE 89–99; RESP 16–20; TEMP 36.1–36.9; O2SAT 92–97; BMI 28.0
--- OUTSIDE RECORDS SUMMARY | 2025-02-14 06:46 | XMS RPT_ITS | CCD ---
Author Organization [facility] Care Team Providers Care Country Sales Manager Name Role Phone Amandeep CORNELIUS, Sarita Monte Unavailable [phone] Ivanauskas, Saulius Unavailable Unavailable Ivanauskas, Saulius Unavailable Unavailable [facility] Unavailable Unavailable [facility] Unavailable Unavailable [facility] Unavailable Unavailable Regi Ken Unavailable Unavailable Regi Ken Unavailable Unavailable Juan Chan Unavailable Moe Gonzales F Unavailable Randy Oden Unavailable Idris John Unavailable Rachel Daniel Unavailable Gravius, Ruby Unavailable Unavailable Messenger, Violeta Unavailable Unavailable Unavailable Unavailable Es VINCENT, Darvin Lopes Unavailable [phone] Juan Chan Unavailable Christian Moe F Unavailable Randy Oden Unavailable Idris John Unavailable Rachel Daniel Unavailable Messenger, Violeta Unavailable Unavailable Gravius, Ruby Unavailable Unavailable Unavailable Unavailable Radha Knapp Unavailable Unavailable Gravius, Ruby Unavailable Unavailable Messenger, Violeta Unavailable Unavailable Unavailable Unavailable Pearl Rueda Unavailable Unavailable Radha Hanson Unavailable Unavailable Ayaka Veliz Unavailable Jodie DOAdrianaJuan Unavailable [phone] Moe Gonzales MD Unavailable Randy Oden Unavailable Ayaka Veliz Unavailable Dr. Idris John Unavailable Knapic DO, Rachel S Unavailable Cross RETAIL BRANCH MANAGER, Radha Unavailable Unavailable Gravius REFORESTATION WORKER, Ruby Unavailable Unavailable Violeta Pak RN Unavailable Unavailable Unavailable Unavailable Peggy RETAIL BRANCH MANAGER, Toyin Unavailable Unavailable Romulo RETAIL BRANCH MANAGER, LORRAINE Unavailable Unavailable Slarb RETAIL BRANCH MANAGER, Manuela Unavailable Unavailable Juan Chan DO Primary Care Provider Juan Chan DO Unavailable Trice Pruitt MA Unavailable Unavailable [facility] REFORESTATION WORKER, Kayela Unavailable Unavailable JodieJuan minor DO Unavailable Moe Gonzales MD Unavailable Randy Oden Unavailable Ayaka Veliz Unavailable Dr. Idris John Unavailable [phone] Knapic DO, Rachel S Unavailable [facility] REFORESTATION WORKER, Kayela Unavailable Unavailable Gravius REFORESTATION WORKER, Ruby Unavailable Unavailable Pasha RN, Violeta Unavailable Unavailable Unavailable Unavailable Dr. Marino Owen Unavailable [phone] Slarb RETAIL BRANCH MANAGER, Manuela Unavailable Unavailable Juan Chan DO Attending Unavailable Juan Chan DO Referring Unavailable Juan Chan DO Consulting Unavailable Juan Chan DO Primary Care Provider Kat Trevizo Unavailable Hannah Andersen MA Unavailable Unavailable Dr. Juan Chan Primary Care Provider [phone] Dr. Juan Chan Referring Provider MD Aydin Blackmon Attending Provider Juan hCan DO Primary Care Provider Juan Chan DO Primary Care Provider JODIE SAINZ, DR GALLEGO Primary Care Physician [phone] Chasity Ibanez Unavailable Unavailable Concetta Rounding Nurse, Maxim Unavailable Derik Solomon UM, Aury M Unavailable Unavailable SIMI AYALA DO Admitting Unavailable SIMI AYALA DO Attending Unavailable SIMI AYALA DO Primary Care Unavailable JUAN CHAN DO Consulting Unavailable JUAN CHAN DO Referring Unavailable PROVIDER, UNKNOWN Consulting Unavailable Fred VINCENT, Berto Unavailable Nava VINCENT, Rodríguez Unavailable JODIE SAINZ, DR GALLEGO [facility] Care Unavailab bautista GREENWOOD MD, LISSETT Admitting Unavailable NERY VINCENT, LISSETT Consulting Unavailable NERY VINCENT, LISSETT Attending Unavailable HAWA SINGLETARY MD Consulting Unavail able KORPI DO, MYRNA Consulting Unavailable JI ALVAREZ Attending Unavailable JODIE , DR GALLEGO [facility] Care Unavailab HAWA Bowles MD Attending Unavail able JODIE DO, DR GALLEGO [facility] Care Unavailab le JODIE DO, DR GALLEGO Primary Care Unavailab HAWA Bowles MD Attending Unavail able JODIE DO, DR GALLEGO Primary Care Unavailab HAWA Bowles MD Attending Unavail able JODIE DO, DR GALLEGO Primary Care Unavailab le KORPI DO, MYRNA Attending Unavailable RACHEL KUMAR MD Consulting Unavailable JODIE , DR GALLEGO Primary Care Unavailab le KORPI DO, MYRNA Attending Unavailable CHRISTI CREWS MD Consulting Unavailable COOPERRIDER SARA, LIZBET Oliveira Attending Unavailabl e SELF Referring Unavailable JUAN CHAN Primary Care Unavailab le COOPERRIDER II, LIZBET Oliveira Attending Unavailabl e COOPERRIDER II, LIZBET Oliveira Referring Unavailabl e JUAN CHAN Primary Care Unavailab le Jodie , Dr. Gallego Primary Care Provider [phone] Jodie SAINZ, Dr. Gallego Referring Provider [phone] Monik Contreras Attending Provider [phone] ELYSIA Sloan. Ashli Attending Provider NP. Ashli Sloan Referring Provider [phone] El VINCENT, Dr. Holloway Attending Provider [phone] El VINCENT, Dr. Holloway Referring Provider [phone] [phone] Jodie SAINZ, Dr. Gallego Primary Care Provider Jodie SAINZ, Dr. Gallego Attending Provider Jodie SAINZ, Dr. Gallego Referring Provider VICK, RODRÍGUEZ Admitting Unavailable VICK, RODRÍGUEZ Attending Unavailable JODIE, JUAN Primary Care Unavailable VICK, RODRÍGUEZ Attending Unavailable JODIE, JUAN Primary Care Unavailable JODIE, JUAN Primary Care Unavailable VICK, RODRÍGUEZ Referring Unavailable VICK, RODRÍGUEZ Attending Unavailable JODIE, JUAN Primary Care Unavailable VICK, RODRÍGUEZ Attending Unavailable VICK, RODRÍGUEZ Attending Unavailable JODIE, JUAN Primary Care Unavailable VICK, RODRÍGUEZ Attending Unavailable AYAKA VELIZ Referring Unavailable JODIE, JUAN Primary Care Unavailable VICK, RODRÍGUEZ Attending Unavailable JODIE, JUAN Primary Care Unavailable JODIE, JUAN Primary Care Unavailable VICK, RODRÍGUEZ Attending Unavailable VICK, RODRÍGUEZ Attending Unavailable VICK, RODRÍGUEZ Referring Unavailable JODIE, JUAN Primary Care Unavailable Juanito ASINZ, Dr. Aldrich Attending Provider [phone] Saeid VINCENT, Dr. Glynn Attending Provider Keren VINCENT, Dr. Marley Attending Provider Rocio Alfaro Attending Provider [phone] Jodie, Juan Primary Care Unavailable Jodie, Juan Referring Unavailable Jodie, Juan Attending Unavailable Jodie, Juan Primary Care Unavailable El, Jewel Referring Unavailable El, Jewel Attending Unavailable Jodie, Juan Primary Care Unavailable El, Jewel Referring Unavailable El, Jewel Attending Unavailable El, Jewel Attending Unavailable Jodie, Juan Primary Care Unavailable El, Jewel Referring Unavailable Jodie, Juan Primary Care Unavailable Renard Breaux Attending Unavailabl e Jodie, Juan Primary Care Unavailable Jodie, Juan Referring Unavailable Shira Mitchell Attending Unavailable Jodie, Juan Primary Care Unavailable Jodie, Juan Referring Unavailable Valdemar Solomon Attending Unavailable Jodie, Juan Primary Care Unavailable Rocio Del Roasrio Attending Unavailable Jodie, Juan Referring Unavailable Jodie, Juan Referring Unavailable Monik Nieves Attending Unavailable Jodie, Juan Primary Care Unavailable Jodie, Juan Primary Care Unavailable Maquon, Ashli Referring Unavailable Nathalia Ashli Attending Unavailable Jodie, Juan Primary Care Unavailable Jodie, Juan Referring Unavailable Jodie, Juan Attending Unavailable Scott Clinton Attending Unavailable Jodie, Juan Primary Care Unavailable Jodie, Juan Referring Unavailable Jodie, Juan Attending Unavailable Jodie, Juan Primary Care Unavailable Provider, Ed Physician Attending Unavailab le Jodie, Juan Primary Care Unavailable Jodie, Juan Primary Care Unavailable Jodie, Juan Referring Unavailable Jodie, Juan Attending Unavailable Allergies Allergy Classification Reported Allergen(s) Allergy Type Date of Onset Reaction(s) Facility Amoxicillin / Clavulanate (5 sources) Amoxicillin / Clavulanate; Translations: [Augmentin *PENICILLINS*] Drug Allergy [facility] Work Phone: Tolnaftate (5 sources) Tolnaftate; Translations: [Antifungal *DERMATOLOGICALS*] Drug Allergy Rash [facility] Work Phone: (1 source) miconazole Drug Allergy 04-30-20 17 Rash [facility] Work Phone: (2 sources) miconazole; Translations: [Antifungal] Drug Allergy [facility] Repository (20 sources) tolnaftate; Translations: [Antifungal *DERMATOLOGICALS*] Drug Allergy Rash [facility] Work Phone: (1 source) lactate Drug Allergy 04-26-20 13 [facility] Work Phone: (1 source) ANTI-FUNGALS(TOPIC AL AND ORAL) drug allergy 04-26-20 13 [facility] Work Phone: (20 sources) Amoxicillin / Clavulanate; Translations: [Augmentin *PENICILLINS*] Drug Allergy 03-21-20 GI Upset [facility] Work Phone: (8 sources) Imidazole antifungal; Translations: [ANTIFUNGAL - IMIDAZOLE] Drug Allergy 11-27-19 18 Rash [facility] Work Phone: (20 sources) Nicotine; Translations: [NICOTINE] Drug Allergy 08-31-19 21 Hives [facility] (8 sources) Amoxicillin Drug Allergy 08-20-19 Nausea [facility] (20 sources) Clavulanate Drug Allergy 08-20-19 Nausea [facility] (8 sources) metaxalone Drug Allergy 08-20-19 22 Anaphylaxis [facility] (9 sources) ANTI FUNGALS; Translations: [ANTI FUNGALS] Allergy to substance 08-20-19 Rash [facility] (1 source) Allergy to drug (finding) [facility] Work Phone: (1 source) Allergy to drug (finding) [facility] Work Phone: (1 source) Allergy to drug (finding) [facility] Work Phone: (1 source) Allergy to drug (finding) [facility] Work Phone: (1 source) Allergy to drug (finding) [facility] Work Phone: (1 source) Allergy to drug (finding) [facility] Work Phone: (1 source) Allergy to drug (finding) [facility] Work Phone: (20 sources) cyclobenzaprine; Translations: [cyclobenzaprine] Drug Allergy 11-27-19 Swelling, Nausea and vomiting (disorder) [facility] (20 sources) metaxalone Drug Allergy 12-04-19 [facility] (20 sources) Undecylenate Drug Allergy 03-04-20 [facility] (20 sources) Amoxicillin-Pot Clavulanate; Translations: [AMOXICILLIN-POT CLAVULANATE] Drug Allergy 03-21-20 [facility] (7 sources) Miconazole; Translations: [miconazole topical] Drug Allergy [facility] (1 source) Amoxicillin / Clavulanate Drug Allergy [facility] Repository (1 source) cyclobenzaprine Drug Allergy [facility] Repository (1 source) Amoxicillin Drug Allergy 02-08-20 [facility] Repository (1 source) Clavulanate Drug Allergy 02-08-20 [facility] Repository (1 source) cyclobenzaprine Drug Allergy 02-08-20 [facility] Repository (1 source) metaxalone Drug Allergy 02-08-20 [facility] Repository Medications Current Medications Medication Drug Class(es) Dates Sig (Normalized) Sig (Original) amitriptyline hydrochloride 50 mg oral tablet (20 sources) Tricyclic Antidepressant Start: 11-14-2022 Start: 03-20-2020 End: 07-15-2024 amitriptyline (Elavil) 50 MG tablet Take 50-100 mg by mouth Nightly. 01/11/2023 Active Start: 11-03-2017 Start: 09-10-2017 take 2 tablets by mo uth at bedtime Amitriptyline 50 MG tablet Active 100 mg PO AT BEDTIME September 10, 2017 12:00am Start: 09-10-2017 take 100 mg by mouth at bedtim e Amitriptyline Active 100 MG PO AT BEDTIME September 10, 2017 12:00am Comment on above: dr ren Take 50 mg by mouth daily at bedtime. apixaban 5 mg oral tablet (20 sources) Factor Xa Inhibitor Start: 07-21-2024 take 1 tablet by mouth twice daily apixaban (Eliquis) 5 MG tablet Take 1 tablet (5 mg) by mouth 2 times daily. Do not start before July 21, 2024. 60 tablet 07/15/2024 1:50 PM EST 07/21/2024 Active Start: 07-21-2024 take 1 tablet by lisa th twice daily apixaban (Eliquis) 5 MG tablet Take 1 tablet (5 mg) by mouth 2 times daily. Do not start before July 21, 2024. 60 tablet 07/15/2024 1:50 PM EST 07/21/2024 Active Start: 07-21-2024 take 1 tablet by lisa th twice daily apixaban (Eliquis) 5 MG tablet Take 1 tablet (5 mg) by mouth 2 times daily. Do not start before July 21, 2024. 60 tablet 07/15/2024 1:50 PM EST 07/21/2024 Active Start: 07-20-2024 take 1 tablet by lisa th twice daily Apixaban (Eliquis) 5 mg tablet Active 5 mg PO TWICE A DAY July 20, 2024 1:00am Start: 04-05-2024 End: 07-15-2024 apixaban (ELIQUIS) 5 mg tab( s) Take 5 mg by mouth. 04/05/2024 Active Ascorbic Acid (9 sources) Vitamin C Start: 03-20-2024 Vitamin C qDay , 0 Refill(s) Start Date: 03/20/24 Status: Ordered Ascorbic Acid (V ITAMIN C PO) Take by mouth. Active benoxinate hydrochloride 4 mg/ml / fluorescein sodium 3 mg/ml ophthalmic solution (5 sources) Diagnostic Dye Start: 10-13-2024 End: 10-13-2024 fluorescein-benoxinate 0.3-0.4 % 1 drop (FLURESS) Start: 10-13-2024 End: 10-13-2024 1 drop, BOTH EYES, DIRECT ED, Starting on Fri10/13/24 at 0900, Until Fri10/13/24 at 2058, Administer for applanation tonometry. In the event of a Fluress shortage, administer Kimberley-Fluor 1 drop into both eyes as directed for applanation tonometry Start: 11-06-2022 End: 11-07-2022 fluorescein-benoxinate 0.25- 0.4 % 1 Drop (FLURESS) Start: 10-18-2021 End: 10-19-2021 fluorescein-benoxinate 0.25- 0.4 % 1 Drop (FLURESS) Start: 09-25-2021 End: 09-25-2021 fluorescein-benoxinate 0.25- 0.4 % 1 Drop (FLURESS) Calcium (8 sources) Phosphate Binder, Calcium CALCIU M PO Take by mouth. Active Calcium Carbonate (7 sources) calcium carbonat e (CALTRATE 600 ORAL) Take by mouth. Active calcium carbonat e (CALTRATE 600 ORAL) Take by mouth. 0 Active Comment on above: Take by mouth. cariprazine 1.5 mg oral capsule (20 sources) Atypical Antipsychotic Start: 03-20-2024 take 1 dose by mouth once daily Vraylar Dose : 0.5 mg =, Oral, qDay, 0 Refill(s) Start Date: 03/20/24 Status: Ordered Start: 07-31-2019 End: 01-21-2020 take 1 capsule by mouth once daily Cariprazine (Vraylar) 1.5 mg capsule Active 1.5 mg PO DAILY January 21, 2020 12:00am DEPRESSION Comment on above: Take 1.5 mg by mouth once daily. cholecalciferol 0.025 mg oral capsule (7 sources) Vitamin D Start: 023 take 1 capsule by mouth once daily Cholecalciferol (Vitamin D3) 25 mcg (1,000 unit) capsule Active 25 ug PO DAILY December 03, 2022 12:00am DULoxetine 60 mg delayed release oral capsule (20 sources) Serotonin and Norepinephrine Reuptake Inhibitor Start: 019 take 2 capsules by mouth once daily Cymbalta 60 MG Oral Capsule Delayed Release Particles 2 (two) Capsule daily for 90 days Quantity: 90 {Capsule} Refills: 0 Ordered: 29-Apr-2019 Juan Chan DO, DO, Kathleen Start : 29-Apr-2019 Active Comments: plus 30mg Start: 06-25-2017 End: 10-27-2017 Cymbalta 60 MG Oral Capsule Delayed Release Particles 1 (one) Capsule DR Part qd for 90 days Quantity: 90 {Capsule} Refills: 3 Ordered: 27-Oct-2017 Katherine Rooney Start : 25-Jun-2017 End : 27-Oct-2017 Discontinued Start: 04-30-2017 take 1 tablet by lisa twice daily CYMBALTA 60 MG CPEP One tablet by mouth twice daily DULOXETINE HCL [id number] Sarita Bernstein RN Start: 04-26-2013 End: 07-15-2024 take 1 capsule by mouth once daily Duloxetine 60 MG capsule Active 60 mg PO DAILY March 15, 2016 12:00am Comment on above: plus 30mg sarahi howard Take 60 mg by mouth once daily. ezetimibe 10 mg oral tablet (20 sources) Dietary Cholesterol Absorption Inhibitor Start: 0 End: 0 ezetimibe (ZETIA) 10 mg tablet 03/23/2020 Active Comment on above: liver enz jump linaclotide 0.145 mg oral capsule (1 source) Guanylate Cyclase-C Agonist Start: 5 take 1 capsule by mouth once daily in the morning Linaclotide (Linzess) 145 mcg capsule Active 145 ug PO EVERY MORNING 30 5 January 20, 2025 12:00am mecobalamin (1 source) Start: 3 take 1000 ug by mouth once daily Mecobalamin (Vitamin B12) Active 1000 MCG PO DAILY December 03, 2022 12:00am allow to dissolve in mouth OR may chew lightly before swallowing Mecobalamin (Vitamin B12) 1,000 mcg lozenge (6 sources) Start: 3 Mecobalamin (Vitamin B12) 1,000 mcg lozenge Active 1000 ug PO FR December 03, 2022 12:00am allow to dissolve in mouth OR may chew lightly before swallowing Start: 12-03-2022 take 1000 ug by mout h once daily Mecobalamin (Vitamin B12) 1,000 mcg lozenge Active 1000 ug PO DAILY December 03, 2022 12:00am allow to dissolve in mouth OR may chew lightly before swallowing meloxicam 15 mg oral tablet (20 sources) Nonsteroidal Anti-inflammatory Drug Start: 07-23-2022 take 1 tablet by mouth once daily as needed meloxicam (Mobic) 15 MG tablet Take 15 mg by mouth daily as needed. 07/23/2022 Active Start: 04-30-2017 take 1 tablet by lisa th once daily MELOXICAM 15 MG TABS One half tablet by mouth daily MELOXICAM [id number] Sarita Bernstein RN Start: 09-06-2016 End: 02-22-2019 take 1 tablet by mouth twice daily Meloxicam 7.5 mg tablet Discontinued 7.5 mg PO TWICE A DAY 30 30 0 June 27, 2017 1:00am February 22, 2019 9:28am mirabegron (20 sources) beta3-Adrenergic Agonist mirabeg fausto (MYRBETRIQ ORAL) Take by mouth. Active mirabegron (MYRB ETRIQ ORAL) Take by mouth. 0 Active Comment on above: Take by mouth. omeprazole 20 mg delayed release oral capsule (20 sources) Proton Pump Inhibitor Start: 01-24-2023 take 1 capsule by mouth once daily Omeprazole 20 mg capsule,delayed release(DR/EC) Active 20 mg PO DAILY November 12, 2024 12:00am Start: 06-03-2019 End: 12-03-2022 take 1 capsule by mouth once daily Omeprazole 20 MG capsule,delayed release(DR/EC) Discontinued 20 mg PO DAILY July 31, 2019 1:00am December 03, 2022 10:20am Start: 03-06-2017 End: 03-06-2017 Comment on above: for chronic use with new onset B12 defic Take 20 mg by mouth once daily. 12 hr orphenadrine citrate 100 mg extended release oral tablet (20 sources) Muscle Relaxant Start: 4 take 1 tablet by mouth twice daily Orphenadrine Citrate 100 mg tablet extended release Active 100 mg PO TWICE A DAY July 20, 2024 1:00am oxyCODONE hydrochloride 5 mg oral tablet (13 sources) Opioid Agonist Start: End: take 1 tablet by mouth every four hours as needed for pain oxyCODONE (Roxicodone) immediate release tablet 5 mg Start: 07-12-2024 take 1 tablet by lisa th three times daily as needed for pain Oxycodone 5 mg tablet Active 5 mg PO THREE TIMES A DAY as needed for pain November 12, 2024 12:00am propylene glycol 6 mg/ml ophthalmic solution (6 sources) propylene glycoL (SYSTANE COMPLETE) 0.6 % drop 1 Drop. Active Comment on above: 1 Drop. rosuvastatin calcium 40 mg oral tablet (20 sources) HMG-CoA Reductase Inhibitor Start: 5 take 1 tablet by mouth at bedtime Rosuvastatin 40 mg tablet Active 40 mg PO AT BEDTIME November 12, 2024 12:00am Start: 07-14-2024 End: 07-15-2024 take 40 mg by mouth once daily 40 mg, Oral, Nightly, F irst dose on Fri07/14/24 at 2100, [facility] Start: 03-20-2024 rosuvastatin 4 0 mg oral tablet Dose : 40 mg = 1 tab(s), Oral, qHS, 0 Refill(s) Start Date: 03/20/24 Status: Ordered Repeat number: 1 Start: 04-18-2023 Start: 05-02-2022 take 1 tablet by lisa th once daily rosuvastatin (Crestor) 40 MG tablet Take 40 mg by mouth Nightly. 10/19/2022 Active Start: 06-01-2021 Crestor 40 MG Oral Tablet 1 (one) Tablet has for 0 days Quantity: 90 {Tablet} Refills: 3 Ordered: 01-Jun-2021 Juan Chan DO, DO, Kathleen Start : 01-Jun-2021 Active Start: 06-21-2020 Crestor 40 MG Oral Tablet 1 (one) Tablet has for 0 days Quantity: 90 {Tablet} Refills: 3 Ordered: 21-Jun-2020 Juan Chan DO, DO, Kathleen Start : 21-Jun-2020 Active Start: 04-03-2020 take 1 tablet by lisa th once daily Crestor 20 MG Oral Tablet 1 (one) Tablet daily for 0 days Quantity: 90 {Tablet} Refills: 3 Ordered: 03-Apr-2020 Jodie DOJuan DO, Kathleen Start : 03-Apr-2020 Active Start: 03-23-2020 take 1 tablet by lisa th once daily Crestor 20 MG Oral Tablet 1 (one) Tablet daily for 0 days Quantity: 90 {Tablet} Refills: 3 Ordered: 23-Mar-2020 Jodie DOJuan DO, Kathleen Start : 23-Mar-2020 Active Start: 02-22-2019 End: 12-03-2022 take 2 tablets by mouth once daily Rosuvastatin (Crestor) 10 mg tablet Discontinued 20 mg PO daily February 22, 2019 9:29am December 03, 2022 10:20am Start: 01-18-2019 take 1 tablet by lisa th once daily Crestor 20 MG Oral Tablet 1 (one) Tablet daily for 0 days Quantity: 90 {Tablet} Refills: 3 Ordered: 18-Jan-2019 Jodie DOJuan DO, Kathleen Start : 18-Jan-2019 Active Start: 12-24-2018 take 1 tablet by lisa th once daily Crestor 20 MG Oral Tablet 1 (one) Tablet daily for 0 days Quantity: 90 {Tablet} Refills: 3 Ordered: 24-Dec-2018 Juan Chan DO, DO, Kathleen Start : 24-Dec-2018 Active Start: 07-14-2016 End: 09-25-2021 take 1 tablet by mouth once daily Rosuvastatin (Crestor) 10 mg tablet Discontinued 10 mg PO daily June 27, 2017 1:00am February 22, 2019 9:32am Comment on above: Take 10 mg by mouth once daily. Take 40 mg by mouth daily at bedtime. solifenacin succinate 10 mg oral tablet (20 sources) Cholinergic Muscarinic Antagonist Start: 2 take 1 tablet by mouth once daily solifenacin (VESIcare) 10 MG tablet Take 10 mg by mouth daily. 01/21/2023 Active Comment on above: Take 1 Tablet orally once per Day for [address] veliz traZODone hydrochloride 300 mg oral tablet (20 sources) Serotonin Reuptake Inhibitor Start: 5 End: 5 take 450 mg by mouth once daily 450 mg, Oral, Nightly, First dose on Fri07/14/24 at 2100, [facility] Start: 04-05-2024 traZODone 300 mg oral tablet Dose : 300 mg = 1 tab(s), Oral, qHS, 0 Refill(s) Start Date: 04/05/24 Status: Ordered Repeat number: 1 Start: 04-05-2024 traZODone 150 mg oral tablet Dose : 150 mg = 1 tab(s), Oral, qHS, # 30 tab(s), 0 Refill(s) Start Date: 04/05/24 Status: Ordered Start: 03-20-2024 take 1 dose by mouth once daily at bedtime traZODone Dose : 450 mg =, Oral, qHS, 0 Refill(s) Start Date: 03/20/24 Status: Ordered Start: 11-14-2022 Start: 03-20-2020 Trazodone 300 mg tablet Active 450 mg PO AT BEDTIME November 12, 2024 12:00am Start: 09-01-2019 Start: 02-22-2019 End: 11-12-2024 Trazodone 100 mg tablet Disc ontinued 450 mg PO AT BEDTIME 90 90 0 February 22, 2019 9:30am November 12, 2024 8:46am Start: 02-22-2019 take 450 mg by mouth at bedtim e Trazodone Active 450 MG PO AT BEDTIME 90 90 February 22, 2019 9:30am Start: 10-27-2017 take 1 tablet by lisa th once daily at bedtime as needed TraZODone HCl 100 MG Oral Tablet 1 (one) Tablet 1-3 tabs qhs prn for 0 days Quantity: 90 {Tablet} Refills: 3 Ordered: 27-Oct-2017 Juan Chan DO, DO, Kathleen Start : 27-Oct-2017 Active Comments: dr sanders Start: 06-27-2017 End: 02-22-2019 take 2 tablets by mouth at bedtime Trazodone 100 mg tablet Discontinued 200 mg PO AT BEDTIME 90 90 0 June 27, 2017 1:00am February 22, 2019 9:32am Start: 06-27-2017 End: 02-22-2019 take 200 mg by mouth at bedtime Trazodone Discontinued 200 MG PO AT BEDTIME 90 90 June 27, 2017 1:00am February 22, 2019 9:32am Start: 04-30-2017 take 1 tablet by lisa th once daily at bedtime TRAZODONE HCL 100 MG TABS One tablet by mouth daily @Bedtime TRAZODONE HCL [id number] Sarita Bernstein RN Start: 04-26-2013 take 1 tablet by lisa th once daily at bedtime TRAZODONE HCL 100 MG TABS 1 tab by mouth daily at bedtime TRAZODONE HCL [id number] Patricia Archibald Comment on above: dr sanders Mail order. [facility]. Patient states she i s taking 450 mg hs tropicamide 10 mg/ml ophthalmic solution (4 sources) Anticholinergic Start: 10-13-2024 End: 10-13-2024 tropicamide 1 % 1 drop (MYDRIACYL) Start: 10-13-2024 End: 10-13-2024 1 drop, BOTH EYES, DIRECT ED, Starting on Fri10/13/24 at 0900, Until Fri10/13/24 at 2058, Administer for dilation Start: 02-25-2024 End: 02-25-2024 tropicamide 0.5 % 1 Drop (MY DRIACYL) Start: 02-25-2024 End: 02-25-2024 1 Drop, BOTH EYES, DIRECT ED, Starting on Fri02/25/24 at 1200, Until Fri02/25/24 at 2359, Administer for dilation Vitamin B Complex 100 (1 source) Start: 03-20-2024 Vitamin B Comp marcelo 100 0 Refill(s) Start Date: 03/20/24 Status: Ordered VITAMIN D PO (8 sources) VITAMIN D PO Bryan e by mouth. Active Vitamin D with Minerals oral tablet (1 source) Start: 03-20-2024 take 1 tablet by mouth once daily Vitamin D with Minerals oral tablet Dose = 1 tab(s), Oral, qDay, # 30 tab(s), 0 Refill(s) Start Date: 03/20/24 Status: Ordered Completed/Discontinued Medications Medication Drug Class(es) Dates Sig (Normalized) Sig (Original) acetaminophen 500 mg oral tablet (5 sources) Start: 07-14-2024 End: 07-15-2024 take 1 tablet by mouth every six hours 1,000 mg, Oral, Every 6 hours, First dose on Fri07/14/24 at 1515, Phase II/On Unit Start: 07-14-2024 End: 07-14-2024 take 1000 mg by mouth once, then take 4000 mg by mouth every twenty-four hours 1,000 mg, Oral, Once, On Fri07/14/24 at 0545, For 1 dose, Preprocedure, Maximum dose of acetaminophen is 4000 mg from all sources in 24 hours. Do not administer if patient has taken tylenol Start: 03-22-2024 take 1 capsule by [facility] every six hours Tylenol 325 mg oral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 ???Instructions ???Recorded ???Confirmed ???Type duloxetine 60 mg capsule,delayed 60 mg PO DAILY 03/15/16 01/20/25 H istory release amitriptyline 50 mg tablet 100 mg PO QHS 09/10/17 11/12/24 Hi story clonazepam 0.5 mg tablet 0.5 mg PO BID 02/22/19 01/20/25 Hi story cariprazine 1.5 mg capsule 1.5 mg PO DAILY DEPRESSION 0 01/20/25 History (Vraylar) primidone 50 mg tablet 100 mg PO DAILY 01/21/20 11/12/24 History topiramate 50 mg tablet 25 mg PO BID 01/21/20 01/20/25 His tory cholecalciferol (vitamin D3) 25 25 mcg PO DAILY 12/03/22 01/20/25 History mcg (1,000 unit) capsule mecobalamin (vitamin B12) 1,000 1,000 mcg PO FR 12/03/22 11/12/24 History mcg lozenges apixaban 5 mg tablet (Eliquis) 5 mg PO BID 07/20/24 11/12/24 Hist ory orphenadrine citrate 100 mg 100 mg PO BID 07/20/24 11/12/24 Hi story tablet,extended release omeprazole 20 mg capsule,delayed 20 mg PO DAILY 11/12/24 01/20/25 H istory release oxycodone 5 mg tablet 5 mg PO TID PRN pain 11/12/2412/29 History rosuvastatin 40 mg tablet 40 mg PO QHS 11/12/24 01/20/25 His tory trazodone 300 mg tablet 450 mg PO QHS 11/12/24 01/20/25 Hi story linaclotide 145 mcg capsule 145 mcg PO QAM #30 caps 01/20/25 0 01/20/25 Rx (Linzess) Nurse's Note: OV 01/20/25 Pt here to establish care with [facility]. Pt reports constipation, and abdominal pain. Pt states she has to strain for bms but is able to have one daily. Pt reports prior hx of colonoscopy was 2 years ago. No prior hx of EGD. [facility] Medical History Wears glasses Cancer Pulmonary embolism Restless legs Syncope COPD (chronic obstructive pulmonary disease) History of pain when walking History of edema Pain Impingement of left shoulder Left shoulder pain Wears contact lenses Depression Anxiety Diabetes Arthritis High cholesterol Back pain Injury of head and neck Tremor Heartburn Smoker Shortness of breath on exertion History of echocardiogram Hx of tilt table evaluation History of stress test Cardiology follow-up encounter Perirectal abscess Pure hypercholesterolemia Chronic low back pain HLD (hyperlipidemia) Syncope and collapse Chest pain Surgical History Hx of partial nephrectomy History of ankle surgery ( 03/2024) History of carpal tunnel surgery Status post simin-rectal abscess repair, follow-up exam History of surgical removal of ganglion cyst H/O laminectomy H/O: hysterectomy ( 1979) cervical fusion ( 06/2010) Family History Mother Anxiety and depression Grandfather CVA (cerebral vascular accident) Hypertension Grandmother Diabetes Social History Smoking Status: Current every day smoker tobacco type: cigarettes Electronic Cigarette Use: with nicotine alcohol intake: current substance use type: does not use caffeine: Yes Type: tea Number of servings: 2 what type of physical activity do you participate in: other details: riding horses seatbelt use: sometimes do you feel safe at home: Yes HPI HPI Chief Complaint: constipation Details: MARGOT HUTCHISON, is a 59 F who presents to the office today for establishment with [facility] CT abd/pelvis 12.16.24; 1. Colonic diverticulosis without diverticulitis. 2. Multiple Schmorl's nodes which have developed since the prior exam. 3. There is a compression fracture of the superior endplate of T12 which was not present previously. 4. Other findings as noted. Pt having constipation for many years. She feels it is related to her medications. She takes oxycodone daily. She has a bm anywhere form once a day to every 5 days. Sometimes she will have loose stools after she has not had a bm in awhile. She denies blood in her stools. Last colonoscopy she believes was two y (more content not included)... Normal [facility] Magnetic resonance imaging r eportOrdered By: Anil Ayala on 01-11-2025 Study report [facility] Imaging Services [address] [place] [address] Spine Thoracic (Routine) MR#: [id number] Acct: [id number] Name: MARGOT HUTCHISON Rep #: [id number] : 1965 F 59 From: Gerardo Ayala MD PCP: Dr. Juan Chan DO Status: RE G CLI Study:Spine Thoracic (Routine) Date of Exam: 01/11/25 Exam# [id number] Ordering Dr: Valentine Chan DO PROCEDURE: SPINE THORACIC (ROUTINE) 01/11/2025 REASON FOR EXAM: COMPRESSION FRACTURE OF T12 VERTEBRA TECHNIQUE: Multiplanar and multisequential MRI of the thoracic spine was performed without contrast. COMPARISON: CT chest abdomen and pelvis 12/16/2024. FINDINGS: No acute fracture or subluxation. Redemonstrated chronic compression fracture deformity involving the superior endplate of T12 likely with a pre-existing prominent degenerative Schmorl's node, with roughly 50% height loss. No marrow edema, and no substantial retropulsion. Remaining vertebral body heights are preserved without evidence of fracture. Mild multilevel spondylotic changes with varying degrees of disc desiccation, and several vertebral endplate degenerative Schmorl's nodes, and small anterior osteophytes. No significant disc bulge, spinal canal or neural foraminal narrowing is present. No suspicious osseous lesion. Postoperative changes of anterior cervical discectomy and fusion at C6-C7 with associated metallic susceptibility artifact. The visualized spinal cord is normal in signal and contour. No abnormal collection is seen within the spinal canal. Unremarkable paravertebral soft tissues. Partially imaged simple left renal cyst. MRI/Spine Thoracic (Routine) IMPRESSION: No acute fracture or subluxation. Redemonstrated chronic superior endplate compression fracture of T12, no retropulsion. Mild multilevel spondylotic changes as described. Reading Location: [id number] CC: Dr. Juan Chan DO ~ Jet Dyeing Machine Operator: Signed [facility] Spine Thoracic (Routine)on 0 01-11-2025 Spine Thoracic (Routine) [facility] Imaging Services [address] [place] [id number] Spine Thoracic (Routine) MR#: [id number] Acct: [id number] Name: MARGOT HUTCHISON Rep #: [id number] : 1965 F 59 From: Anil Ayala MD PCP: Dr. Juan Chan DO Status: REG CLI Study: Spine Thoracic (Routine) Date of Exam: Exam# [id number] Ordering Dr: Juan Chan DO PROCEDURE: SPINE THORACIC (ROUTINE) 01/11/2025 REASON FOR EXAM: COMPRESSION FRACTURE OF T12 VERTEBRA TECHNIQUE: Multiplanar and multisequential MRI of the thoracic spine was performed without contrast. COMPARISON: CT chest abdomen and pelvis 12/16/2024. FINDINGS: No acute fracture or subluxation. Redemonstrated chronic compression fracture deformity involving the superior endplate of T12 likely with a pre-existing prominent degenerative Schmorl's node, with roughly 50% height loss. No marrow edema, and no substantial retropulsion. Remaining vertebral body heights are preserved without evidence of fracture. Mild multilevel spondylotic changes with varying degrees of disc desiccation, and several vertebral endplate degenerative Schmorl's nodes, and small anterior osteophytes. No significant disc bulge, spinal canal or neural foraminal narrowing is present. No suspicious osseous lesion. Postoperative changes of anterior cervical discectomy and fusion at C6-C7 with associated metallic susceptibility artifact. The visualized spinal cord is normal in signal and contour. No abnormal collection is seen within the spinal canal. Unremarkable paravertebral soft tissues. Partially imaged simple left renal cyst. MRI/Spine Thoracic (Routine) IMPRESSION: No acute fracture or subluxation. Redemonstrated chronic superior endplate compression fracture of T12, no retropulsion. Mild multilevel spondylotic changes as described. Reading Location: [id number] CC: Dr. Juan Chan DO Jet Dyeing Machine Operator: Signed Normal [facility] Echocardiogram study reportO rdered By: Renard Breaux on 12-17-2024 Study report [facility] Cardiovascular Services [address] [place] [address] Echo Complete 12/16/24 09 MR#: [id number] Acct: [id number] Name: MARGOT HUTCHISON Rep #:[id number] : 1965 59 From: Renard hickey MD Attending Dr: Dr. Juan Chan, Status: REG CLI Ordering Dr: Juan Chan DO Date: 12/16/24 Location: CT Sex: F C Admitted: Reason For Study Reason For Study: Edema Procedure This was a 2D Doppler, Color Flow transthoracic echocardiogram. Exam performed in department. Left Ventricle Normal LV size. The estimated ejection fraction is 60 %. No evidence for diastolic dysfunction. No regional wall motion abnormalities noted. Right Ventricle Normal RV size. Normal systolic function. Atria The left and right atria are normal. No doppler evidence for ASD. Mitral Valve There is no mitral valve stenosis. No mitral valve insufficiency. Tricuspid Valve There is no tricuspid stenosis. Unable to estimate RV systolic pressure due to inadequate jet, pulmonary artery pressure probably normal. Aortic Valve Trisinus/trileaflet aortic valve. There is no aortic stenosis. No aortic valve insufficiency. Pulmonic Valve There is no pulmonic valvular stenosis. No pulmonic valve insufficiency. Great Vessels Normal sized aortic root. Pericardium/Pleural Trivial pericardial effusion. MMode/2D Measurements & Calculations LVIDd: 4.6 cm IVSd: 1.3 cm Ao root diam: 2.6 cm LVIDs: 3.0 cm LVPWd: 0.75 cm RVDd: 2.9 cm FS: 34.1 % LAV(MOD-bp): 49.0 ml LVAd ap4: 27.6 cm2 SV(MOD-sp4): 36.2 ml LAV(MOD-bp) Indexed: 24.8 ml/m2 LVLd ap4: 8.5 cm SI(MOD-sp4): 18.4 ml/m2 LAV(MOD-sp2): 44.8 ml EDV(MOD-sp4): 72.4 ml LAV(MOD-sp4): 43.9 ml EDV(sp4-el): 76.1 ml LVAs ap4: 17.9 cm2 LVLs ap4: 7.5 cm ESV(MOD-sp4): 36.1 ml ESV(sp4-el): 36.5 ml EF(MOD-sp4): 50.1 % EF(sp4-el): 52.0 % __ SV(sp4-el): 39.6 ml LA A4 area: 18.1 cm2 LA dimension(2D): 3.5 cm __ RA A4 area: 12.9 cm2 TAPSE: 1.9 cm Time Measurements MV dec time: 0.19 sec Doppler Measurements & Calculations MV E max luiz: 61.1 cm/sec Lat Peak E' Luiz: 10.4 cm/sec Med Peak E' Luiz: 10.1 cm/sec MV A max luiz: 64.1 cm/sec E/E' lat: 5.9 E/E' med: 6.0 MV E/A: 0.95 __ MV V2 max: 76.4 cm/sec MV P1/2t max luiz: 75.5 cm/sec Ao V2 max: 130.2 cm/sec MV max P.3 mmHg MV P1/2t: 66.2 msec Ao max P.8 mmHg MV V2 mean: 48.3 cm/sec Ao V2 mean: 88.8 cm/sec MV mean P.1 mmHg MV dec slope: 333.9 cm/sec2 Ao mean P.6 mmHg MV V2 VTI: 15.6 cm MVA(P1/2t): 3.3 cm2 Ao V2 VTI: 27.4 cm AV (velocity ratio): 0.85 __ LV V1 max: 90.9 cm/sec LV V1 max P.3 mmHg LV V1 mean P.9 mmHg LV V1 mean: 63.6 cm/sec LV V1 VTI: 23.2 cm ECHO/Echo Complete Interpretation Summary The estimated ejection fraction is 60 %. No evidence for diastolic dysfunction. Trivial pericardial effusion. Ordering Physician: Juan Chan Referring Physician: Juan Chan Performed By: Nixon Painter RCS 12/17/24 1426 Date _ Renard Breaux MD CC: Dr. Juan Chan DO ~ Date Dictated: 12/16/24922 Date Transcribed: 12/17/241425 Jet Dyeing Machine Operator: Signed [facility] Work Phone: Abdomen/Pelvis WITH Contrast on 12-16-2024 Abdomen/Pelvis WITH Contrast [facility] Imaging Services [address] [place] [address] [id number] Abdomen/Pelvis WITH Contrast MR#: [id number] Acct: [id number] Name: FOSTERMARGOT CAITLYN Rep #: [id number] : 1965 F 59 From: Simi Keller MD PCP: Dr. Juan Chan DO Status: REG CLI Study: Abdomen/Pelvis WITH Contrast Date of Exam: Exam# [id number] Ordering Dr: Jodie,Juan DO PROCEDURE: ABDOMEN/PELVIS WITH CONTRAST 12/16/2024 REASON FOR EXAM: LUQ PAIN TECHNIQUE: ABDOMEN/PELVIS WITH CONTRAST. Coronal and Sagittal reconstruction series were provided. ORAL CONTRAST TYPE: Readi-Cat CONTRAST: Isovue 370 VOLUME: 98 mL One or more dose reduction techniques were used (e.g., Automated exposure control, adjustment of the mA and/or kV according to patient size, use of iterative reconstruction technique. RADIATION DOSE SUMMARY: CTDlvol: 75.00 mGy DLP: 2327.42 mGycm COMPARISON: CT abdomen and pelvis with IV contrast, 10/03/2018 FINDINGS: Lung bases: There is linear scarring in both lung bases. There are no pleural effusions. The heart size is normal. There is no pericardial effusion. There is no calcific vascular disease of the coronary arteries evident. Liver: Normal. Gallbladder: Normal. Spleen: Normal. Pancreas: Normal. Adrenals: Normal. Kidneys: There are 2 benign-appearing cortical cysts in the left kidney, 1 in the upper pole and 1 in the interpolar region. Bladder: Normal. Reproductive Organs: The uterus is surgically absent. The ovaries are not identified. There is no free fluid in the pelvis. There is no pelvic or inguinal lymphadenopathy. Bowel: There are few colonic diverticuli without evidence of acute inflammation. Appendix: Normal. Lymph nodes: There is no mesenteric or retroperitoneal lymphadenopathy. Vasculature: There is mild calcific vascular disease of the abdominal aorta. The inferior vena cava and portal venous system are normal. Peritoneum / Retroperitoneum: There are no intra or retroperitoneal masses or lymphadenopathy. There is a 6 mm in diameter umbilical hernia containing normal fat. Bones: There is multilevel degenerative disc disease of the lower thoracic and lumbar spine. There are large Schmorl's nodes at the superior endplates of T11, T12, L3 and L4. These were not present previously. There is also a compression fracture of the superior endplate of T12, not present previously. CT/Abdomen/Pelvis WITH Contrast IMPRESSION: 1. Colonic diverticulosis without diverticulitis. 2. Multiple Schmorl's nodes which have developed since the prior exam. 3. There is a compression fracture of the superior endplate of T12 which was not present previously. 4. Other findings as noted. Reading Location: [id number] CC: Dr. Juan Chan DO Jet Dyeing Machine Operator: Signed Normal [facility] CREATININE FINGERSTICKon CREATININE WB < 1.0 Normal 0.55-1.02 [facility] Comment on above: Performed By: #### L 9100.0200 ####[facility] [address] [place], [place], [address] EGFR WB > 60.0000 Normal >60 [facility] Comment on above: Performed By: #### L 9100.0200 ####[facility] [address] [place], [place], [address] CTA Chest W/WO Contraston CTA Chest W/WO Contrast [facility] Imaging Services [address] [place], [place] [address] CTA Chest W/WO Contrast MR#: [id number] Acct: [id number] Name: MARGOT HUTCHISON Rep #: [id number] : 1965 F 59 From: Simi Keller MD PCP: Dr. Juan Chan, Status: REG CLI Study: CTA Chest W/WO Contrast Date of Exam: 12/16/24 Exam# [id number] Ordering Dr: Juan Chan DO PROCEDURE: CTA CHEST W/WO CONTRAST 12/16/2024 REASON FOR EXAM: CTA CHEST WITH CONTRAST - RE-EVAL PE TECHNIQUE: CTA CHEST W/WO CONTRAST Multiplanar Sagittal and Coronal images were obtained. CONTRAST: Isovue 370 VOLUME: 98 mL One or more dose reduction techniques were used (e.g., Automated exposure control, adjustment of the mA and/or kV according to patient size, use of iterative reconstruction technique). RADIATION DOSE SUMMARY: CTDlvol: 67.60 mGy DLP: 2327.42 mGycm COMPARISON: CT low-dose lung screen, 01/07/2023 # of known CTs in the past 12 months: 0 # of known Cardiac Nuclear Medicine Studies in the past 12 months: 0 FINDINGS: Thoracic Aorta: There is minimal calcific vascular disease of the thoracic aorta. There is no evidence of thoracic aortic aneurysm or aortic dissection. Measurements (cm): Mid ascendin.7 cm Proximal descendin.1 cm Heart: The heart size is normal. There is no pericardial effusion. There is calcific vascular disease of the coronary arteries. Pulmonary Vessels: There is no evidence of pulmonary emboli. The main pulmonary artery is normal in diameter. Lymph nodes: There is no mediastinal lymphadenopathy. There is a right hilar lymph node measuring 1.4 x 1.1 cm. Lungs and Airways: There are scattered air cyst bilaterally. There is linear scarring in the basilar segments of both lower lobes. There are no pulmonary nodules or masses. Pleura: There are no pleural effusions. Upper Abdomen: There is calcific vascular disease of the visualized abdominal aorta. Chest wall: The visualized soft tissues of the chest wall appear unremarkable. There is a large Schmorl's node in the superior endplate of T12 with an associated compression fracture which appears chronic, but has occurred since the prior exam. There is a large Schmorl's node in the superior endplate of T11. Status post anterior interbody fusion, C6-7. CT/CTA Chest W/WO Contrast IMPRESSION: 1. No evidence of pulmonary emboli. 2. Interval development of a compression fracture of the superior endplate of T12. 3. The lungs are unchanged. Reading Location: [id number] CC: Dr. Juan Chan DO Jet Dyeing Machine Operator: Signed Normal [facility] EGFROrdered By: Juan lambert on 12-16-2024 GFR/1.73 sq M.predicted among non-blacks MDRD (S/P/Bld) [Vol rate/Area] mL/min/{1.73_m2} >60 [facility] Echo Completeon 12-16-2024 Echo Complete [facility] Cardiovascular Services [address] [place] [address] Echo Complete 12/16/24 0923 MR#: [id number] Acct: [id number] Name: MARGOT HUTCHISON Rep #: [id number] : 1965 59 From: Renard Breaux MD Attending Dr: Dr. Juan Chan, DO Status: R EG CLI Ordering Dr: Juan Chan DO Date: 12/16/24 Location: [place] Sex: F C Admitted: Reason For Study Reason For Study: Edema Procedure This was a 2D Doppler, Color Flow transthoracic echocardiogram. Exam performed in department. Left Ventricle Normal LV size. The estimated ejection fraction is 60 %. No evidence for diastolic dysfunction. No regional wall motion abnormalities noted. Right Ventricle Normal RV size. Normal systolic function. Atria The left and right atria are normal. No doppler evidence for ASD. Mitral Valve There is no mitral valve stenosis. No mitral valve insufficiency. Tricuspid Valve There is no tricuspid stenosis. Unable to estimate RV systolic pressure due to inadequate jet, pulmonary artery pressure probably normal. Aortic Valve Trisinus/trileaflet aortic valve. There is no aortic stenosis. No aortic valve insufficiency. Pulmonic Valve There is no pulmonic valvular stenosis. No pulmonic valve insufficiency. Great Vessels Normal sized aortic root. Pericardium/Pleural Trivial pericardial effusion. MMode/2D Measurements Calculations LVIDd: 4.6 cm IVSd: 1.3 cm Ao root diam: 2.6 cm LVIDs: 3.0 cm LVPWd: 0.75 cm RVDd: 2.9 cm FS: 34.1 % LAV(MOD-bp): 49.0 ml LVAd ap4: 27.6 cm2 SV(MOD-sp4): 36.2 ml LAV(MOD-bp) Indexed: 24.8 ml/m2 LVLd ap4: 8.5 cm SI(MOD-sp4): 18.4 ml/m2 LAV(MOD-sp2): 44.8 ml EDV(MOD-sp4): 72.4 ml LAV(MOD-sp4): 43.9 ml EDV(sp4-el): 76.1 ml LVAs ap4: 17.9 cm2 LVLs ap4: 7.5 cm ESV(MOD-sp4): 36.1 ml ESV(sp4-el): 36.5 ml EF(MOD-sp4): 50.1 % EF(sp4-el): 52.0 % SV(sp4-el): 39.6 ml LA A4 area: 18.1 cm2 LA dimension(2D): 3.5 cm RA A4 area: 12.9 cm2 TAPSE: 1.9 cm Time Measurements MV dec time: 0.19 sec Doppler Measurements Calculations MV E max luiz: 61.1 cm/sec Lat Peak E' Luiz: 10.4 cm/sec Med Peak E' Luiz: 10.1 cm/sec MV A max luiz: 64.1 cm/sec E/E' lat: 5.9 E/E' med: 6.0 MV E/A: 0.95 MV V2 max: 76.4 cm/sec MV P1/2t max luiz: 75.5 cm/sec Ao V2 max: 130.2 cm/sec MV max P.3 mmHg MV P1/2t: 66.2 msec Ao max P.8 mmHg MV V2 mean: 48.3 cm/sec Ao V2 mean: 88.8 cm/sec MV mean P.1 mmHg MV dec slope: 333.9 cm/sec2 Ao mean P.6 mmHg MV V2 VTI: 15.6 cm MVA(P1/2t): 3.3 cm2 Ao V2 VTI: 27.4 cm AV (velocity ratio): 0.85 LV V1 max: 90.9 cm/sec LV V1 max P.3 mmHg LV V1 mean P.9 mmHg LV V1 mean: 63.6 cm/sec LV V1 VTI: 23.2 cm ECHO/Echo Complete Interpretation Summary The estimated ejection fraction is 60 %. No evidence for diastolic dysfunction. Trivial pericardial effusion. Ordering Physician: Juan Chan Referring Physician: Juan Chan Performed By: Nixon Painter RCS 12/17/24 1426 Date Renard Breaux MD CC: Dr. Juan Chan, Date Dictated: 12/16/24922 Date Transcribed: 12/17/24 1426 Jet Dyeing Machine Operator: Signed Santosh [facility] Office Visiton 11-25-2024 Follow-up visit [id number] Margot Hutchison 1965 F Date Provider Department Center 11/25/2024 [id number] [facility] None Family History Problem Relation Age of Onset Anesthesia problems Mother Heart disease Paternal Grandfather Family Status - Relation Status Age at Mother Paternal Grandfather Level of Service:56487 [place] OFFICE/OUTPATIENT ESTABLISHED LOW MDM 20 MIN Reason for Visit and Comments: Renal Cancer [316] - Follow up Normal [facility] Progress Noteon 11-25-2024 Progress Note Rodríguez Vick MD 11/25/2024 at 9:00 AM Office follow up PATIENT NAME: Margot Hutchison DATE OF : 1965 TODAY'S DATE: 11/25/2024 CHIEF COMPLAINT: Chief Complaint Patient presents with Renal Cancer Follow up Subjective: Ms. Hutchison is a 59 y.o. 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 Status post partial right nephrectomy with heterogeneity and irregularity of upper pole cortex. Small area of calcification is present here. No definite recurrent mass is seen in this background. 2. Two small cortical cysts left kidney, largest 2.2 cm. 3. Aortoiliac calcified plaquing, fatty infiltration liver, multilevel degenerative disc disease with chronic mild superior endplate depressions of T11, T12, L3, L4, mild probable interstitial scarring lung bases, prior right-sided laminectomy L5. Report Dictated on Electronically Signed By: Dov Rose MD Electronically Signed Date/Time: 10/18/2024 4:55 PM EDT Did not get CXR Review of Systems Denies respiratory difficulty Denies distress Medications Current Medications[1] Vitals: BP 133/72 Ht 5' 8.5 (1.74 m) Wt 184 lb (83.5 kg) BMI 27.57 kg/m? Physical Exam Physical Exam No acute distress Normal respiratory effort LABS: No results found for: PSA No results found for: TESTOSTERONE Lab Results Component Value Date WBC 14.3 (H) 07/15/2024 HGB 12.9 07/15/2024 HCT 41.1 07/15/2024 MCV 86.9 07/15/2024 PLT 292 07/15/2024 Lab Results Component Value Date GLUCOSE 97 07/15/2024 CALCIUM 8.4 (L) 07/15/2024 NA 142 10/18/2024 K 3.8 10/18/2024 CO2 23 07/15/2024 CL 108 (H) 07/15/2024 BUN 14 07/15/2024 CREATININE 0.8 10/18/2024 No components found for: LABURIN @LASTPROCPOC@ Pathology: Radiology: Impression/Plan: Margot was seen today for renal cancer. Diagnoses and all orders for this visit: Malignant neoplasm of right kidney (HCC) (Primary) - CT abdomen w IV contrast; Future - XR chest 2 views; Future - Comprehensive metabolic panel; Future - Comprehensive metabolic panel - XR chest 2 views; Future CT, CXR and CMP CXR now as well Follow up in about 1 year (around 11/25/2025). Rodríguez Vick MD 11/25/24 9:00 AM [1] Current Outpatient Medications: amitriptyline (Elavil) 50 MG tablet, Take 50-100 mg by mouth Nightly., Disp: , Rfl: apixaban (Eliquis) 5 MG tablet, Take 1 tablet (5 mg) by mouth 2 times daily. Do not start before July 21, 2024., Disp: 60 tablet, Rfl: 0 Ascorbic Acid (VITAMIN C PO), Take by mouth., Disp: , Rfl: CALCIUM PO, Take by mouth., Disp: , Rfl: clonazePAM (KlonoPIN) 0.5 MG tablet, Take 0.5 mg by mouth daily., Disp: , Rfl: Cyanocobalamin (VITAMIN B 12 PO), Take by mouth., Disp: , Rfl: DULoxetine (Cymbalta) [address] capsule, Take 60 mg by mouth Nightly., Disp: , Rfl: meloxicam (Mobic) 15 MG tablet, Take 15 mg by mouth daily as needed., Disp: , Rfl: omeprazole (PriLOSEC) [address] capsule, Take 20 mg by mouth daily., Disp: , Rfl: orphenadrine (Norflex) 100 MG 12 hr tablet, Take 100 mg by mouth 2 times daily., Disp: , Rfl: oxyCODONE (Roxicodone) 5 MG immediate release tablet, Take 5 mg by mouth 3 times daily as needed., Disp: , Rfl: polyethylene glycol, PEG, 3350 (Miralax) 17 g packet, Take by mouth., Disp: , Rfl: rosuvastatin (Crestor) 40 MG tablet, Take 40 mg by mouth Nightly., Disp: , Rfl: solifenacin (VESIcare) 10 MG tablet, Take 10 mg by mouth daily., Disp: , Rfl: topiramate (Topamax) 25 MG tablet, Take 25 mg by mouth 2 times daily., Disp: , Rfl: traZODone (Desyrel) 300 MG tablet, Take 450 mg by mouth Nightly., Disp: , Rfl: VITAMIN D PO, Take by mouth., Disp: , Rfl: Vraylar 1.5 MG capsule, Take 1.5 mg by mouth daily., Disp: , Rfl: albuterol 108 (90 Base) MCG/ACT inhaler, Inhale 2 puffs every 4 hours as needed., Disp: , Rfl: primidone (Mysoline) 50 MG tablet, TAKE 3 TABLETS (150 MG) BY MOUTH 3 TIMES DAILY. (Patient not taking: Reported on 11/25/2024), Disp: 810 tablet, Rfl: 3 tiZANidine (Zanaflex) 4 MG tablet, TAKE 1 TABLET BY MOUTH THREE TIMES A DAY NEEDED FOR SPASMS, Disp: , Rfl: Normal [facility] Bedside Glucoseon 11-15-2024 FINGERSTICK GLU 115 mg/dL High 74-106 [facility] Comment on above: Result Comment: EVA MARES OF PATIENT CARE PER NURSING PROTOCOL Performed By: #### L 501.080 #### [facility] Laboratory [address]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 current substance use type: does not use caffeine: Yes Type: tea Number of servings: 2 what type of physical activity do you participate in: other details: riding horses seatbelt use: sometimes do you feel safe at home: Yes ROS ROS ED ROS Narrative Constitutional: Denies any fevers, chills, headaches, lightness, dizziness Eyes: Denies change in vision double vision blurry vision Cardiovascular: Denies chest pain or palpitations Respiratory: Denies any coughin (more content not included)... Normal [facility] L501.4020on 03-25-2024 TROPONIN-I HS 4 pg/mL Normal 3.0-54.0 [facility] Comment on above: Order Comment: 'TROP ' Serial specimen #1, #2 or #3: 1 Result Comment: Jacek zuniga Note: New Test Units and Gender Specific Reference Ranges. For more information see Policy Stat Procedure [place] High Sensitivity Troponin (TNIH) and attachments. Performed By: #### L 501.4020, L500.4050, L100.0100 ####[facility] [address] [place], [address] .Auto Diffon 03-22-2024 Basophil, Absolute 0.0 10 3/mcL Normal 0.0-0.3 [facility] Comment on above: Performed By: #### A DIFF, ANEU, BMP, CBC, GFR #### [address] [address] Basophils/100 WBC (Bld) 0.1 % Normal 0.0-2.5 [facility] Comment on above: Performed By: #### A DIFF, ANEU, BMP, CBC, GFR #### [address] [address] Eosinophil, Absolute 0.1 10 3/mcL Normal 0.0-0.7 [facility] Comment on above: Performed By: #### A DIFF, ANEU, BMP, CBC, GFR #### [address] [address] Eosinophils/100 WBC (Bld) 1.5 % Normal 0.0-6.0 [facility] Comment on above: Performed By: #### A DIFF, ANEU, BMP, CBC, GFR #### [address] [address] Lymphocyte, Absolute 0.9 10 3/mcL Normal 0.9-4.3 [facility] Comment on above: Performed By: #### A DIFF, ANEU, BMP, CBC, GFR #### [address] [address] Lymphocytes/100 WBC (Bld) 10.7 % Low 20.0-40.0 [facility] Comment on above: Performed By: #### A DIFF, ANEU, BMP, CBC, GFR #### [address] [address] Monocyte, Absolute 0.5 10 3/mcL Normal 0.1-1.4 [facility] Comment on above: Performed By: #### A DIFF, ANEU, BMP, CBC, GFR #### [address] [address] Monocytes/100 WBC (Bld) 5.6 % Normal 2.0-13.0 [facility] Comment on above: Performed By: #### A DIFF, ANEU, BMP, CBC, GFR #### [address] [address] Neutrophils/100 WBC (Bld) 82.1 % High 50.0-75.0 [facility] Comment on above: Performed By: #### A DIFF, ANEU, BMP, CBC, GFR #### [place] [id number] .GFRon 03-22-2024 GFR >60 Normal [facility] Comment on above: Result Comment: GFR Population mean for , Non- Americans Ages 20-29 = 116 mL/min/1.73 sq.m. Ages 30-39 = 107 mL/min/1.73 sq.m. Ages 40-49 = 99 mL/min/1.73 sq.m. Ages 50-59 = 93 mL/min/1.73 sq.m. Ages 60-69 = 85 mL/min/1.73 sq.m. Ages 70+ = 75 mL/min/1.73 sq.m. Chronic Kidney Disease: Less than 60 mL/min/1.73 square meters End Stage Renal Disease: Less than 15 mL/min/1.73 square meters Performed By: #### P HOS, GFR, CMP, ANEU, CBC, ADIFF, MG #### [address] [address] GFR Non- >60 Normal [facility] Comment on above: Result Comment: GFR Population mean for , Non- Americans Ages 20-29 = 116 mL/min/1.73 sq.m. Ages 30-39 = 107 mL/min/1.73 sq.m. Ages 40-49 = 99 mL/min/1.73 sq.m. Ages 50-59 = 93 mL/min/1.73 sq.m. Ages 60-69 = 85 mL/min/1.73 sq.m. Ages 70+ = 75 mL/min/1.73 sq.m. Chronic Kidney Disease: Less than 60 mL/min/1.73 square meters End Stage Renal Disease: Less than 15 mL/min/1.73 square meters Performed By: #### P HOS, GFR, CMP, ANEU, CBC, ADIFF, MG #### [address] [address] .NEUABSon 03-22-2024 Neutrophil, Absolute 6.8 10 3/mcL Normal 2.3-8.1 [facility] Comment on above: Performed By: #### A DIFF, ANEU, BMP, CBC, GFR #### [address] [address] BMPon 03-22-2024 BUN/Creatinine Ratio 15.9 ratio Normal 10.0-22.0 [facility] Comment on above: Performed By: #### P HOS, GFR, CMP, ANEU, CBC, ADIFF, MG #### [address] [address] Calcium [Mass/Vol] 8.9 mg/dL Normal 8.7-10.4 [facility] Comment on above: Performed By: #### P HOS, GFR, CMP, ANEU, CBC, ADIFF, MG #### [address] [address] Chloride [Moles/Vol] 108 mmol/L Normal 98-110 [facility] Comment on above: Performed By: #### P HOS, GFR, CMP, ANEU, CBC, ADIFF, MG #### [address] [address] CO2 [Moles/Vol] 27 mmol/L Normal 22-32 [facility] Comment on above: Performed By: #### P HOS, GFR, CMP, ANEU, CBC, ADIFF, MG #### [address] [address] Creatinine [Mass/Vol] 0.63 mg/dL Normal 0.50-1.20 [facility] Comment on above: Result Comment: Test ing performed on [employer] analyzer using enzymatic creatinine methodology. Performed By: #### P HOS, GFR, CMP, ANEU, CBC, ADIFF, MG #### [place] [id number] Electrolyte Balance 10.0 mEq/L Normal 4.0-15.0 [facility] Comment on above: Performed By: #### P HOS, GFR, CMP, ANEU, CBC, ADIFF, MG #### [place] [id number] Glucose [Mass/Vol] 95 mg/dL Normal 82-115 [facility] Comment on above: Performed By: #### P HOS, GFR, CMP, ANEU, CBC, ADIFF, MG #### [place] [id number] Potassium [Moles/Vol] 4.3 mmol/L Normal 3.5-5.0 [facility] Comment on above: Performed By: #### P HOS, GFR, CMP, ANEU, CBC, ADIFF, MG #### [place] [id number] Sodium [Moles/Vol] 145 mmol/L Normal 136-145 [facility] Comment on above: Performed By: #### P HOS, GFR, CMP, ANEU, CBC, ADIFF, MG #### [place] [id number] Urea nitrogen [Mass/Vol] 10.0 mg/dL Normal 8.0-22.0 [facility] Comment on above: Performed By: #### P HOS, GFR, CMP, ANEU, CBC, ADIFF, MG #### [address] [address] CBCon 03-22-2024 Erythrocyte distribution width (RBC) [Ratio] 14.6 % Normal 11.5-15.5 [facility] Comment on above: Performed By: #### A DIFF, ANEU, BMP, CBC, GFR #### [address] [address] Hematocrit (Bld) [Volume fraction] 43.7 % Normal 34.0-46.0 [facility] Comment on above: Performed By: #### A DIFF, ANEU, BMP, CBC, GFR #### [place] [address] Hgb 14.3 G/dL Normal 12.0-16.0 [facility] Comment on above: Performed By: #### A DIFF, ANEU, BMP, CBC, GFR #### [place] [address] MCH (RBC) [Entitic mass] 29.9 pg Normal 27.0-33.0 [facility] Comment on above: Performed By: #### A DIFF, ANEU, BMP, CBC, GFR #### [place] [address] MCHC 32.8 G/dL Normal 32.0-36.0 [facility] Comment on above: Performed By: #### A DIFF, ANEU, BMP, CBC, GFR #### [place] [address] MCV (RBC) [Entitic vol] 91.0 fL Normal 80.0-99.0 [facility] Comment on above: Performed By: #### A DIFF, ANEU, BMP, CBC, GFR #### [place] [address] Platelet 234 10 3/mcL Normal 150-450 [facility] Comment on above: Performed By: #### A DIFF, ANEU, BMP, CBC, GFR #### [place] [address] Platelet mean volume (Bld) [Entitic vol] 7.6 fL Normal 6.6-10.5 [facility] Comment on above: Performed By: #### A DIFF, ANEU, BMP, CBC, GFR #### [place] [address] RBC 4.80 10 6/mcL Normal 4.10-5.30 [facility] Comment on above: Performed By: #### A DIFF, ANEU, BMP, CBC, GFR #### [place] [address] WBC 8.3 10 3/mcL Normal 4.5-10.8 [facility] Comment on above: Performed By: #### A DIFF, ANEU, BMP, CBC, GFR #### [place] [address] LABORATORYOrdered By: SYSTEM SYSTEM on 03-22-2024 Basophils (Bld) [#/Vol] 0.0 103/mcL Normal 0.0 - 0.3 10^3/mcL AH Workflow SS Basophils/100 WBC (Bld) 0.1 % Normal 0.0 - 2.5 % AH Workflow SS Calcium [Mass/Vol] 8.9 mg/dL Normal 8.7 - 10. 4 mg/dL AH ADM SS Chloride [Moles/Vol] 108 mmol/L Normal 98 - 11 0 mEq/L AH ADM SS CO2 [Moles/Vol] 27 mmol/L Normal 22 - 32 mEq/L AH ADM SS Creatinine [Mass/Vol] 0.63 mg/dL Normal 0.50 - 1.20 mg/dL AH ADM SS Comment on above: Interpretive Data: T esting performed on [employer] analyzer using enzymatic creatinine methodology. Electrolyte Balance 10.0 mEq/L Normal 4.0 - 15 .0 mEq/L AH ADM SS Eosinophils (Bld) [#/Vol] 0.1 103/mcL Normal 0.0 - 0.7 10^3/mcL AH Workflow SS Eosinophils/100 WBC (Bld) 1.5 % Normal 0.0 - 6.0 % AH Workflow SS Erythrocyte distribution width (RBC) [Ratio] 14.6 % Normal 11.5 - 15.5 % AH Workflow SS GFR/1.73 sq M.predicted among blacks MDRD (S/P/Bld) [Vol rate/Area] ml/min/1.73sqm Invalid Interpretation Code AH ADM SS Comment on above: Interpretive Data: GFR Population mean for , Non- Americans Ages 20-29 = 116 mL/min/1.73 sq.m. Ages 30-39 = 107 mL/min/1.73 sq.m. Ages 40-49 = 99 mL/min/1.73 sq.m. Ages 50-59 = 93 mL/min/1.73 sq.m. Ages 60-69 = 85 mL/min/1.73 sq.m. Ages 70+ = 75 mL/min/1.73 sq.m. Chronic Kidney Disease: Less than 60 mL/min/1.73 square meters End Stage Renal Disease: Less than 15 mL/min/1.73 square meters GFR/1.73 sq M.predicted among non-blacks MDRD (S/P/Bld) [Vol rate/Area] ml/min/1.73sqm Invalid Interpretation Code ADM SS Comment on above: Interpretive Data: GFR Population mean for , Non- Americans Ages 20-29 = 116 mL/min/1.73 sq.m. Ages 30-39 = 107 mL/min/1.73 sq.m. Ages 40-49 = 99 mL/min/1.73 sq.m. Ages 50-59 = 93 mL/min/1.73 sq.m. Ages 60-69 = 85 mL/min/1.73 sq.m. Ages 70+ = 75 mL/min/1.73 sq.m. Chronic Kidney Disease: Less than 60 mL/min/1.73 square meters End Stage Renal Disease: Less than 15 mL/min/1.73 square meters Glucose [Mass/Vol] 95 mg/dL Normal 82 - 115 mg/dL ADM SS Hematocrit (Bld) [Volume fraction] 43.7 % Normal 34.0 - 46.0 % AH Workflow SS Hemoglobin (Bld) [Mass/Vol] 14.3 G/dL Normal 12.0 - 16.0 G/dL AH Workflow SS Lymphocytes (Bld) [#/Vol] 0.9 103/mcL Normal 0.9 - 4.3 10^3/mcL AH Workflow SS Lymphocytes/100 WBC (Bld) 10.7 % Low 20.0 - 40.0 % AH Workflow SS MCH (RBC) [Entitic mass] 29.9 pg Normal 27.0 - 33.0 pg AH Workflow SS MCHC 32.8 G/dL Normal 32.0 - 36.0 G/dL AH Workflow SS MCV (RBC) [Entitic vol] 91.0 fL Normal 80.0 - 99.0 fL AH Workflow SS Monocytes (Bld) [#/Vol] 0.5 103/mcL Normal 0.1 - 1.4 10^3/mcL AH Workflow SS Monocytes/100 WBC (Bld) 5.6 % Normal 2.0 - 13.0 % AH Workflow SS Neutrophils (Bld) [#/Vol] 6.8 103/mcL Normal 2.3 - 8.1 10^3/mcL AH Workflow SS Neutrophils/100 WBC (Bld) 82.1 % High 50.0 - 75.0 % Workflow SS Platelet mean volume (Bld) [Entitic vol] 7.6 fL Normal 6.6 - 10.5 fL Workflow SS Platelets (Bld) [#/Vol] 234 103/mcL Normal 150 - 450 10^3/mcL Workflow SS Potassium [Moles/Vol] 4.3 mmol/L Normal 3.5 - 5.0 mEq/L ADM SS RBC (Bld) [#/Vol] 4.80 106/mcL Normal 4.10 - 5.30 10^6/mcL Workflow SS Sodium [Moles/Vol] 145 mmol/L Normal 136 - 145 mEq/L ADM SS Urea nitrogen [Mass/Vol] 10.0 mg/dL Normal 8.0 - 22.0 mg/dL ADM SS Urea nitrogen/Creatinine [Mass ratio] 15.9 ratio Normal 10.0 - 22.0 ratio ADM SS WBC (Bld) [#/Vol] 8.3 103/mcL Normal 4.5 - 10.8 10^3/mcL Workflow SS .Auto Diffon 03-21-2024 Basophil, Absolute 0.0 10 3/mcL Normal 0.0-0.3 [facility] Comment on above: Performed By: #### P HOS, GFR, CMP, ANEU, CBC, ADIFF, MG #### [address] [address] Basophils/100 WBC (Bld) 0.4 % Normal 0.0-2.5 [facility] Comment on above: Performed By: #### P HOS, GFR, CMP, ANEU, CBC, ADIFF, MG #### [address] [address] Eosinophil, Absolute 0.1 10 3/mcL Normal 0.0-0.7 [facility] Comment on above: Performed By: #### P HOS, GFR, CMP, ANEU, CBC, ADIFF, MG #### [address] [address] Eosinophils/100 WBC (Bld) 1.5 % Normal 0.0-6.0 [facility] Comment on above: Performed By: #### P HOS, GFR, CMP, ANEU, CBC, ADIFF, MG #### [address] [address] Lymphocyte, Absolute 0.9 10 3/mcL Normal 0.9-4.3 [facility] Comment on above: Performed By: #### P HOS, GFR, CMP, ANEU, CBC, ADIFF, MG #### [address] [address] Lymphocytes/100 WBC (Bld) 10.8 % Low 20.0-40.0 [facility] Comment on above: Performed By: #### P HOS, GFR, CMP, ANEU, CBC, ADIFF, MG #### [address] [address] Monocyte, Absolute 0.4 10 3/mcL Normal 0.1-1.4 [facility] Comment on above: Performed By: #### P HOS, GFR, CMP, ANEU, CBC, ADIFF, MG #### [address] [address] Monocytes/100 WBC (Bld) 4.4 % Normal 2.0-13.0 [facility] Comment on above: Performed By: #### P HOS, GFR, CMP, ANEU, CBC, ADIFF, MG #### [address] [address] Neutrophils/100 WBC (Bld) 82.9 % High 50.0-75.0 [facility] Comment on above: Performed By: #### P HOS, GFR, CMP, ANEU, CBC, ADIFF, MG #### [address] [address] .GFRon 03-21-2024 GFR >60 Normal [facility] Comment on above: Result Comment: GFR Population mean for , Non- Americans Ages 20-29 = 116 mL/min/1.73 sq.m. Ages 30-39 = 107 mL/min/1.73 sq.m. Ages 40-49 = 99 mL/min/1.73 sq.m. Ages 50-59 = 93 mL/min/1.73 sq.m. Ages 60-69 = 85 mL/min/1.73 sq.m. Ages 70+ = 75 mL/min/1.73 sq.m. Chronic Kidney Disease: Less than 60 mL/min/1.73 square meters End Stage Renal Disease: Less than 15 mL/min/1.73 square meters Performed By: #### P HOS, GFR, CMP, ANEU, CBC, ADIFF, MG #### [address] [address] GFR Non- >60 Normal [facility] MAIN Comment on above: Result Comment: GFR Population mean for , Non- Americans Ages 20-29 = 116 mL/min/1.73 sq.m. Ages 30-39 = 107 mL/min/1.73 sq.m. Ages 40-49 = 99 mL/min/1.73 sq.m. Ages 50-59 = 93 mL/min/1.73 sq.m. Ages 60-69 = 85 mL/min/1.73 sq.m. Ages 70+ = 75 mL/min/1.73 sq.m. Chronic Kidney Disease: Less than 60 mL/min/1.73 square meters End Stage Renal Disease: Less than 15 mL/min/1.73 square meters Performed By: #### P HOS, GFR, CMP, ANEU, CBC, ADIFF, MG #### [address] [address] .NEUABSon 03-21-2024 Neutrophil, Absolute 6.6 10 3/mcL Normal 2.3-8.1 [facility] MA[facility] Comment on above: Performed By: #### P HOS, GFR, CMP, ANEU, CBC, ADIFF, MG #### [address] [address] CBCon 03-21-2024 Erythrocyte distribution width (RBC) [Ratio] 15.0 % Normal 11.5-15.5 [facility] MAIN Comment on above: Performed By: #### P HOS, GFR, CMP, ANEU, CBC, ADIFF, MG #### [address] [address] Hematocrit (Bld) [Volume fraction] 40.9 % Normal 34.0-46.0 [facility] MA[facility] Comment on above: Performed By: #### P HOS, GFR, CMP, ANEU, CBC, ADIFF, MG #### [place] [address] Hgb 13.3 G/dL Normal 12.0-16.0 [facility] MAIN Comment on above: Performed By: #### P HOS, GFR, CMP, ANEU, CBC, ADIFF, MG #### [place] [address] MCH (RBC) [Entitic mass] 29.8 pg Normal 27.0-33.0 [facility] MAIN Comment on above: Performed By: #### P HOS, GFR, CMP, ANEU, CBC, ADIFF, MG #### [place] [address] MCHC 32.5 G/dL Normal 32.0-36.0 [facility] MA[facility] Comment on above: Performed By: #### P HOS, GFR, CMP, ANEU, CBC, ADIFF, MG #### [place] [address] MCV (RBC) [Entitic vol] 91.5 fL Normal 80.0-99.0 [facility] MA[facility] Comment on above: Performed By: #### P HOS, GFR, CMP, ANEU, CBC, ADIFF, MG #### [place] [address] Platelet 240 10 3/mcL Normal 150-450 [facility] MAIN Comment on above: Performed By: #### P HOS, GFR, CMP, ANEU, CBC, ADIFF, MG #### [place] [address] Platelet mean volume (Bld) [Entitic vol] 7.4 fL Normal 6.6-10.5 [facility] MA[facility] Comment on above: Performed By: #### P HOS, GFR, CMP, ANEU, CBC, ADIFF, MG #### [place] [address] RBC 4.46 10 6/mcL Normal 4.10-5.30 [facility] MA[facility] Comment on above: Performed By: #### P HOS, GFR, CMP, ANEU, CBC, ADIFF, MG #### [place] [address] WBC 8.0 10 3/mcL Normal 4.5-10.8 [facility] MA[facility] Comment on above: Performed By: #### P HOS, GFR, CMP, ANEU, CBC, ADIFF, MG #### [place] [id number] CMPon 03-21-2024 Albumin Level 3.0 G/dL Low 3.2-4.8 [facility] MAIN Comment on above: Performed By: #### P HOS, GFR, CMP, ANEU, CBC, ADIFF, MG #### [place] [address] Albumin/Globulin [Mass ratio] 1.0 {ratio} Normal 0.9-1.6 [facility] MAIN Comment on above: Performed By: #### P HOS, GFR, CMP, ANEU, CBC, ADIFF, MG #### [place] [address] ALP [Catalytic activity/Vol] 129 U/L High 38-126 [facility] MAIN Comment on above: Performed By: #### P HOS, GFR, CMP, ANEU, CBC, ADIFF, MG #### [place] [address] ALT [Catalytic activity/Vol] 38 U/L Normal 10-49 [facility] MA[facility] Comment on above: Performed By: #### P HOS, GFR, CMP, ANEU, CBC, ADIFF, MG #### [place] [address] AST [Catalytic activity/Vol] 37 U/L High 8-34 [facility] MA[facility] Comment on above: Performed By: #### P HOS, GFR, CMP, ANEU, CBC, ADIFF, MG #### [place] [address] Bili Total 0.30 mg/dL Normal 0.20-1.20 [facility] MAIN Comment on above: Result Comment: Use of this assay is not recommended for patients undergoing treatment with eltrombopag due to the potential for falsely elevated results. Performed By: #### P HOS, GFR, CMP, ANEU, CBC, ADIFF, MG #### [place] [address] BUN/Creatinine Ratio 19.3 ratio Normal 10.0-22.0 [facility] Comment on above: Performed By: #### P HOS, GFR, CMP, ANEU, CBC, ADIFF, MG #### [address] [address] Calcium [Mass/Vol] 8.7 mg/dL Normal 8.7-10.4 [facility] MA[facility] Comment on above: Performed By: #### P HOS, GFR, CMP, ANEU, CBC, ADIFF, MG #### [place] [id number] Chloride [Moles/Vol] 107 mmol/L Normal 98-110 [facility] MA[facility] Comment on above: Performed By: #### P HOS, GFR, CMP, ANEU, CBC, ADIFF, MG #### [place] [id number] CO2 [Moles/Vol] 26 mmol/L Normal 22-32 [facility] MA[facility] Comment on above: Performed By: #### P HOS, GFR, CMP, ANEU, CBC, ADIFF, MG #### [place] [id number] Creatinine [Mass/Vol] 0.57 mg/dL Normal 0.50-1.20 [facility] MAIN Comment on above: Result Comment: Test ing performed on [employer] analyzer using enzymatic creatinine methodology. Performed By: #### P HOS, GFR, CMP, ANEU, CBC, ADIFF, MG #### [place] [id number] Electrolyte Balance 7.0 mEq/L Normal 4.0-15.0 [facility] MA[facility] Comment on above: Performed By: #### P HOS, GFR, CMP, ANEU, CBC, ADIFF, MG #### [place] [id number] Globulin 2.9 G/dL Normal 1.5-3.8 [facility] MAIN Comment on above: Performed By: #### P HOS, GFR, CMP, ANEU, CBC, ADIFF, MG #### [place] [id number] Glucose [Mass/Vol] 105 mg/dL Normal 82-115 [facility] MAIN Comment on above: Performed By: #### P HOS, GFR, CMP, ANEU, CBC, ADIFF, MG #### [place] [id number] Potassium [Moles/Vol] 4.1 mmol/L Normal 3.5-5.0 [facility] MAIN Comment on above: Performed By: #### P HOS, GFR, CMP, ANEU, CBC, ADIFF, MG #### [place] [id number] Sodium [Moles/Vol] 140 mmol/L Normal 136-145 [facility] MAIN Comment on above: Performed By: #### P HOS, GFR, CMP, ANEU, CBC, ADIFF, MG #### [place] [id number] Total Protein 5.9 G/dL Normal 5.7-8.2 [facility] MAIN Comment on above: Result Comment: No te - New Reference Range in effect 20 Performed By: #### P HOS, GFR, CMP, ANEU, CBC, ADIFF, MG #### [place] [id number] Urea nitrogen [Mass/Vol] 11.0 mg/dL Normal 8.0-22.0 [facility] MAIN Comment on above: Performed By: #### P HOS, GFR, CMP, ANEU, CBC, ADIFF, MG #### [place] [address] CT FOOT W/O CONTRAST LEFTon 03-21-2024 CT FOOT W/O CONTRAST LEFT ORIGINAL EXAMINATION: CT OF THE LEFT FOOT WITHOUT CONTRAST 03/21/2024 11:18 am TECHNIQUE: CT of the left foot was performed without the administration of intravenous contrast. Multiplanar reformatted images are provided for review. Automated exposure control, iterative reconstruction, and/or weight based adjustment of the mA/kV was utilized to reduce the radiation dose to as low as reasonably achievable. COMPARISON: Left ankle radiographs, 03/20/2024 HISTORY ORDERING SYSTEM PROVIDED HISTORY: Reason for Exam: trauma, eval for fractures FINDINGS: An acute displaced fracture is seen of the lateral malleolus. The lateral malleolar bone fragment is displaced laterally by up to 5.5 mm and the lateral malleolar fragment is mildly rotated in a clockwise fashion. There is a chronic appearing avulsion injury near the medial malleolus. A surgical plate bridges the 1st metatarsophalangeal joint. There are some corticated ossicles near the talonavicular joints. No definite acute fracture seen of the navicular, cuboid or cuneiforms. The metatarsals appear intact. A bone island noted in the lateral cuneiform. Calcaneal enthesophytes visualized. Prominent soft tissue swelling is identified in the ankle and foot near the plantar aspect of the 1st metatarsophalangeal joint there is a focal fluid pocket measuring approximally 12 mm. There is a similar collection on the plantar aspect of the foot near the 5th metatarsophalangeal joint measuring 11 mm. IMPRESSION: Displaced fracture of the lateral malleolus. There is some rotation of the lateral malleolar fragment There are other chronic appearing posttraumatic ossicles in the ankle/hindfoot. Prominent soft tissue edema. There are focal nonspecific fluid collections along the plantar aspect of the forefoot. Consider routine follow-up MRI Surgical changes in the forefoot resulting in metallic artifact Interpreted by: Alexander Faustin MD Preliminary Report By: Alexander Faustin MD Electronically signed By Alexander Faustin MD Dictated Date: 03/21/2024 11:28:35 AM Prelim Date: 03/21/2024 11:40:45 AM Sign Date: 03/21/2024 11:40:45 AM Ordering Provider: RUTH OSULLIVAN [facility] MAIN LABORATORYOrdered By: SYSTEM SYSTEM on 03-21-2024 Albumin BCP dye [Mass/Vol] 3.0 G/dL Low 3.2 - 4.8 G/dL AH ADM SS Albumin/Globulin [Mass ratio] 1.0 {ratio} Normal 0.9 - 1.6 ratio AH ADM SS ALP [Catalytic activity/Vol] 129 U/L High 38 - 126 U/L AH ADM SS ALT No additional P-5'-P [Catalytic activity/Vol] 38 U/L Normal 10 - 49 U/L AH ADM SS AST [Catalytic activity/Vol] 37 U/L High 8 - 34 U/L AH ADM SS Basophils (Bld) [#/Vol] 0.0 103/mcL Normal 0.0 - 0.3 10^3/mcL AH Workflow SS Basophils/100 WBC (Bld) 0.4 % Normal 0.0 - 2.5 % AH Workflow SS Bilirubin [Mass/Vol] 0.30 mg/dL Normal 0.20 - 1.20 mg/dL ADM SS Comment on above: Interpretive Data: U se of this assay is not recommended for patients undergoing treatment with eltrombopag due to the potential for falsely elevated results. Calcium [Mass/Vol] 8.7 mg/dL Normal 8.7 - 10. 4 mg/dL ADM SS Chloride [Moles/Vol] 107 mmol/L Normal 98 - 11 0 mEq/L ADM SS CO2 [Moles/Vol] 26 mmol/L Normal 22 - 32 mEq/L ADM SS Creatinine [Mass/Vol] 0.57 mg/dL Normal 0.50 - 1.20 mg/dL ADM SS Comment on above: Interpretive Data: T esting performed on [employer] analyzer using enzymatic creatinine methodology. Electrolyte Balance 7.0 mEq/L Normal 4.0 - 15 .0 mEq/L ADM SS Eosinophils (Bld) [#/Vol] 0.1 103/mcL Normal 0.0 - 0.7 10^3/mcL Workflow SS Eosinophils/100 WBC (Bld) 1.5 % Normal 0.0 - 6.0 % Workflow SS Erythrocyte distribution width (RBC) [Ratio] 15.0 % Normal 11.5 - 15.5 % Workflow SS GFR/1.73 sq M.predicted among blacks MDRD (S/P/Bld) [Vol rate/Area] ml/min/1.73sqm Invalid Interpretation Code ADM SS Comment on above: Interpretive Data: GFR Population mean for , Non- Americans Ages 20-29 = 116 mL/min/1.73 sq.m. Ages 30-39 = 107 mL/min/1.73 sq.m. Ages 40-49 = 99 mL/min/1.73 sq.m. Ages 50-59 = 93 mL/min/1.73 sq.m. Ages 60-69 = 85 mL/min/1.73 sq.m. Ages 70+ = 75 mL/min/1.73 sq.m. Chronic Kidney Disease: Less than 60 mL/min/1.73 square meters End Stage Renal Disease: Less than 15 mL/min/1.73 square meters GFR/1.73 sq M.predicted among non-blacks MDRD (S/P/Bld) [Vol rate/Area] ml/min/1.73sqm Invalid Interpretation Code ADM SS Comment on above: Interpretive Data: GFR Population mean for , Non- Americans Ages 20-29 = 116 mL/min/1.73 sq.m. Ages 30-39 = 107 mL/min/1.73 sq.m. Ages 40-49 = 99 mL/min/1.73 sq.m. Ages 50-59 = 93 mL/min/1.73 sq.m. Ages 60-69 = 85 mL/min/1.73 sq.m. Ages 70+ = 75 mL/min/1.73 sq.m. Chronic Kidney Disease: Less than 60 mL/min/1.73 square meters End Stage Renal Disease: Less than 15 mL/min/1.73 square meters Globulin 2.9 G/dL Normal 1.5 - 3.8 G/dL ADM SS Glucose [Mass/Vol] 105 mg/dL Normal 82 - 115 mg/dL ADM SS Hematocrit (Bld) [Volume fraction] 40.9 % Normal 34.0 - 46.0 % AH Workflow SS Hemoglobin (Bld) [Mass/Vol] 13.3 G/dL Normal 12.0 - 16.0 G/dL Workflow SS Lymphocytes (Bld) [#/Vol] 0.9 103/mcL Normal 0.9 - 4.3 10^3/mcL Workflow SS Lymphocytes/100 WBC (Bld) 10.8 % Low 20.0 - 40.0 % Workflow SS Magnesium [Mass/Vol] 1.9 mg/dL Normal 1.6 - 2 .4 mg/dL ADM SS MCH (RBC) [Entitic mass] 29.8 pg Normal 27.0 - 33.0 pg AH Workflow SS MCHC 32.5 G/dL Normal 32.0 - 36.0 G/dL Workflow SS MCV (RBC) [Entitic vol] 91.5 fL Normal 80.0 - 99.0 fL Workflow SS Monocytes (Bld) [#/Vol] 0.4 103/mcL Normal 0.1 - 1.4 10^3/mcL Workflow SS Monocytes/100 WBC (Bld) 4.4 % Normal 2.0 - 13.0 % Workflow SS Neutrophils (Bld) [#/Vol] 6.6 103/mcL Normal 2.3 - 8.1 10^3/mcL AH Workflow SS Neutrophils/100 WBC (Bld) 82.9 % High 50.0 - 75.0 % AH Workflow SS Phosphate [Mass/Vol] 3.8 mg/dL Normal 2.4 - 5 .1 mg/dL ADM SS Comment on above: Interpretive Data: * *Note - New Reference Range in effect 20 Platelet mean volume (Bld) [Entitic vol] 7.4 fL Normal 6.6 - 10.5 fL Workflow SS Platelets (Bld) [#/Vol] 240 103/mcL Normal 150 - 450 10^3/mcL Workflow SS Potassium [Moles/Vol] 4.1 mmol/L Normal 3.5 - 5.0 mEq/L ADM SS Protein [Mass/Vol] 5.9 G/dL Normal 5.7 - 8.2 G/dL ADM SS Comment on above: Interpretive Data: * *Note - New Reference Range in effect 20 RBC (Bld) [#/Vol] 4.46 106/mcL Normal 4.10 - 5.30 10^6/mcL Workflow SS Sodium [Moles/Vol] 140 mmol/L Normal 136 - 145 mEq/L ADM SS Urea nitrogen [Mass/Vol] 11.0 mg/dL Normal 8.0 - 22.0 mg/dL ADM SS Urea nitrogen/Creatinine [Mass ratio] 19.3 ratio Normal 10.0 - 22.0 ratio ADM SS WBC (Bld) [#/Vol] 8.0 103/mcL Normal 4.5 - 10.8 10^3/mcL Workflow SS MGon 03-21-2024 Magnesium [Mass/Vol] 1.9 mg/dL Normal 1.6-2.4 [facility] MAIN Comment on above: Performed By: #### P HOS, GFR, CMP, ANEU, CBC, ADIFF, MG #### [address] [address] PHOSon 03-21-2024 Phosphate [Mass/Vol] 3.8 mg/dL Normal 2.4-5.1 [facility] MAIN Comment on above: Result Comment: No te - New Reference Range in effect 20 Performed By: #### P HOS, GFR, CMP, ANEU, CBC, ADIFF, MG #### [address] [address] XR CHEST 1 VIEWon 03-21-2024 XR CHEST 1 VIEW ORIGINAL EXAMINATION: ONE XRAY VIEW OF THE CHEST 03/21/2024 7:27 am COMPARISON: Chest x-ray on 03/20/2024 HISTORY: ORDERING SYSTEM PROVIDED HISTORY: Reason for Exam: RIB FX mech vent, SOB FINDINGS: The heart size and mediastinal contours are normal. There is mild right perihilar atelectasis that is has developed. A small amount of left pleural fluid is new with mild adjacent left basilar atelectasis. The left 8th rib fracture is not visible on this exam but better seen on CT scan. There is no pneumothorax. IMPRESSION: New small left pleural effusion and mild left basilar atelectasis. New mild right perihilar atelectasis. No pneumothorax. Interpreted by: Maverick Scott MD Preliminary Report By: Maverick Scott MD Electronically signed By Maverick Scott MD Dictated Date: 03/21/2024 7:46:33 AM Prelim Date: 03/21/2024 7:49:33 AM Sign Date: 03/21/2024 7:49:33 AM Ordering Provider: SAMIME WALL [facility] MAIN XR SPINE LUMBAR AP/LATon XR SPINE LUMBAR AP/LAT ORIGINAL EXAMINATION: 2 XRAY VIEWS OF THE LUMBAR SPINE 03/20/2024 7:43 pm COMPARISON: CT abdomen and pelvis on 03/20/2024 HISTORY: ORDERING SYSTEM PROVIDED HISTORY: Reason for Exam: T12 modified burst fx, L3 and L4 fractures. Assess stability upright in brace FINDINGS: The thoracic spine alignment is normal. Mild anterior compression of the T12 vertebral body appears slightly greater than that seen on CT scan earlier in the day with approximately 25% height loss anteriorly involving the superior endplate. Burst fracture component is not well visible. Nondisplaced fracture at the anterior superior corner of the L4 vertebral body is only partly visible. There is mild superior endplate depression at L3 and L4 that is unchanged. IMPRESSION: Normal alignment of lumbar spine. Mild anterior compression of T12 appears slightly greater than that seen on CT scan earlier in the day. Nondisplaced fracture at anterior superior corner of L4 is only partly visible. Interpreted by: Maverick Scott MD Preliminary Report By: Maverick Scott MD Electronically signed By Maverick Scott MD Dictated Date: 03/21/2024 12:43:03 AM Prelim Date: 03/21/2024 12:49:19 AM Sign Date: 03/21/2024 12:49:19 AM Ordering Provider: JI Frost [facility] MAIN .Auto Diffon 03-20-2024 Basophil, Absolute 0.0 10 3/mcL Normal 0.0-0.3 [facility] MAIN Comment on above: Performed By: #### P HOS, GFR, CMP, ANEU, CBC, ADIFF, MG #### [address] [address] Basophils/100 WBC (Bld) 0.3 % Normal 0.0-2.5 [facility] MAIN Comment on above: Performed By: #### P HOS, GFR, CMP, ANEU, CBC, ADIFF, MG #### [address] [address] Eosinophil, Absolute 0.0 10 3/mcL Normal 0.0-0.7 [facility] MAIN Comment on above: Performed By: #### P HOS, GFR, CMP, ANEU, CBC, ADIFF, MG #### [address] [address] Eosinophils/100 WBC (Bld) 0.3 % Normal 0.0-6.0 [facility] MAIN Comment on above: Performed By: #### P HOS, GFR, CMP, ANEU, CBC, ADIFF, MG #### [address] [address] Lymphocyte, Absolute 0.6 10 3/mcL Low 0.9-4.3 [facility] MAIN Comment on above: Performed By: #### P HOS, GFR, CMP, ANEU, CBC, ADIFF, MG #### [address] [address] Lymphocytes/100 WBC (Bld) 3.9 % Low 20.0-40.0 [facility] MAIN Comment on above: Performed By: #### P HOS, GFR, CMP, ANEU, CBC, ADIFF, MG #### [address] [address] Monocyte, Absolute 0.4 10 3/mcL Normal 0.1-1.4 [facility] MA[facility] Comment on above: Performed By: #### P HOS, GFR, CMP, ANEU, CBC, ADIFF, MG #### [address] [address] Monocytes/100 WBC (Bld) 3.1 % Normal 2.0-13.0 [facility] MAIN Comment on above: Performed By: #### P HOS, GFR, CMP, ANEU, CBC, ADIFF, MG #### [address] [address] Neutrophils/100 WBC (Bld) 92.4 % High 50.0-75.0 [facility] MAIN Comment on above: Performed By: #### P HOS, GFR, CMP, ANEU, CBC, ADIFF, MG #### [address] [address] Basophil, Absolute 0.1 10 3/mcL Normal 0.0-0.3 [facility] Comment on above: Performed By: #### P HOS, GFR, CMP, ANEU, CBC, ADIFF, MG #### [address] [address] Basophils/100 WBC (Bld) 0.5 % Normal 0.0-2.5 [facility] MAIN Comment on above: Performed By: #### P HOS, GFR, CMP, ANEU, CBC, ADIFF, MG #### [address] [address] Eosinophil, Absolute 0.1 10 3/mcL Normal 0.0-0.7 [facility] MAIN Comment on above: Performed By: #### P HOS, GFR, CMP, ANEU, CBC, ADIFF, MG #### [address] [address] Eosinophils/100 WBC (Bld) 0.4 % Normal 0.0-6.0 [facility] MAIN Comment on above: Performed By: #### P HOS, GFR, CMP, ANEU, CBC, ADIFF, MG #### [address] [address] Lymphocyte, Absolute 0.9 10 3/mcL Normal 0.9-4.3 [facility] MAIN Comment on above: Performed By: #### P HOS, GFR, CMP, ANEU, CBC, ADIFF, MG #### [address] [address] Lymphocytes/100 WBC (Bld) 6.2 % Low 20.0-40.0 [facility] MAIN Comment on above: Performed By: #### P HOS, GFR, CMP, ANEU, CBC, ADIFF, MG #### [address] [address] Monocyte, Absolute 0.4 10 3/mcL Normal 0.1-1.4 [facility] MA[facility] Comment on above: Performed By: #### P HOS, GFR, CMP, ANEU, CBC, ADIFF, MG #### [address] [address] Monocytes/100 WBC (Bld) 2.9 % Normal 2.0-13.0 [facility] MAIN Comment on above: Performed By: #### P HOS, GFR, CMP, ANEU, CBC, ADIFF, MG #### [address] [address] Neutrophils/100 WBC (Bld) 90.0 % High 50.0-75.0 [facility] Comment on above: Performed By: #### P HOS, GFR, CMP, ANEU, CBC, ADIFF, MG #### [address] [address] .GFRon 03-20-2024 GFR >60 Normal [facility] Comment on above: Result Comment: GFR Population mean for , Non- Americans Ages 20-29 = 116 mL/min/1.73 sq.m. Ages 30-39 = 107 mL/min/1.73 sq.m. Ages 40-49 = 99 mL/min/1.73 sq.m. Ages 50-59 = 93 mL/min/1.73 sq.m. Ages 60-69 = 85 mL/min/1.73 sq.m. Ages 70+ = 75 mL/min/1.73 sq.m. Chronic Kidney Disease: Less than 60 mL/min/1.73 square meters End Stage Renal Disease: Less than 15 mL/min/1.73 square meters Performed By: #### P HOS, GFR, CMP, ANEU, CBC, ADIFF, MG #### [address] [address] GFR Non- >60 [facility]IN Comment on above: Result Comment: GFR Population mean for , Non- Americans Ages 20-29 = 116 mL/min/1.73 sq.m. Ages 30-39 = 107 mL/min/1.73 sq.m. Ages 40-49 = 99 mL/min/1.73 sq.m. Ages 50-59 = 93 mL/min/1.73 sq.m. Ages 60-69 = 85 mL/min/1.73 sq.m. Ages 70+ = 75 mL/min/1.73 sq.m. Chronic Kidney Disease: Less than 60 mL/min/1.73 square meters End Stage Renal Disease: Less than 15 mL/min/1.73 square meters Performed By: #### P HOS, GFR, CMP, ANEU, CBC, ADIFF, MG #### [address] [address] GFR >60 [facility] MAIN Comment on above: Result Comment: GFR Population mean for , Non- Americans Ages 20-29 = 116 mL/min/1.73 sq.m. Ages 30-39 = 107 mL/min/1.73 sq.m. Ages 40-49 = 99 mL/min/1.73 sq.m. Ages 50-59 = 93 mL/min/1.73 sq.m. Ages 60-69 = 85 mL/min/1.73 sq.m. Ages 70+ = 75 mL/min/1.73 sq.m. Chronic Kidney Disease: Less than 60 mL/min/1.73 square meters End Stage Renal Disease: Less than 15 mL/min/1.73 square meters Performed By: #### P HOS, GFR, CMP, ANEU, CBC, ADIFF, MG #### [address] [address] GFR Non- >60 Normal [facility] MAIN Comment on above: Result Comment: GFR Population mean for , Non- Americans Ages 20-29 = 116 mL/min/1.73 sq.m. Ages 30-39 = 107 mL/min/1.73 sq.m. Ages 40-49 = 99 mL/min/1.73 sq.m. Ages 50-59 = 93 mL/min/1.73 sq.m. Ages 60-69 = 85 mL/min/1.73 sq.m. Ages 70+ = 75 mL/min/1.73 sq.m. Chronic Kidney Disease: Less than 60 mL/min/1.73 square meters End Stage Renal Disease: Less than 15 mL/min/1.73 square meters Performed By: #### P HOS, GFR, CMP, ANEU, CBC, ADIFF, MG #### [place] [address] .MDWon 03-20-2024 Monocyte Distribution Width 16.51 Normal 0.00-20.00 [facility] MAIN Comment on above: Result Comment: For ED adult patients suspected of sepsis, MDW<=20.0 does not rule out sepsis or risk of sepsis Performed By: #### P HOS, GFR, CMP, ANEU, CBC, ADIFF, MG #### [place] [address] .NEUABSon 03-20-2024 Neutrophil, Absolute 13.2 10 3/mcL High 2.3-8.1 [facility] MAIN Comment on above: Performed By: #### P HOS, GFR, CMP, ANEU, CBC, ADIFF, MG #### [place] [address] Neutrophil, Absolute 12.9 10 3/mcL High 2.3-8.1 [facility] MAIN Comment on above: Performed By: #### P HOS, GFR, CMP, ANEU, CBC, ADIFF, MG #### [place] [address] Archie 03-20-2024 Ethanol Level <10.0 [facility] MAIN Comment on above: Performed By: #### P HOS, GFR, CMP, ANEU, CBC, ADIFF, MG #### [address] [address] BMPon 03-20-2024 BUN/Creatinine Ratio 24.6 ratio High 10.0-22.0 [facility] MAIN Comment on above: Performed By: #### P HOS, GFR, CMP, ANEU, CBC, ADIFF, MG #### [place] [id number] Calcium [Mass/Vol] 9.1 mg/dL Normal 8.7-10.4 [facility] MAIN Comment on above: Performed By: #### P HOS, GFR, CMP, ANEU, CBC, ADIFF, MG #### [place] [id number] Chloride [Moles/Vol] 111 mmol/L High 98-110 [facility] MAIN Comment on above: Performed By: #### P HOS, GFR, CMP, ANEU, CBC, ADIFF, MG #### [place] [id number] CO2 [Moles/Vol] 24 mmol/L Normal 22-32 [facility] MAIN Comment on above: Performed By: #### P HOS, GFR, CMP, ANEU, CBC, ADIFF, MG #### [place] [address] Creatinine [Mass/Vol] 0.61 mg/dL Normal 0.50-1.20 [facility] MAIN Comment on above: Result Comment: Test ing performed on [employer] analyzer using enzymatic creatinine methodology. Performed By: #### P HOS, GFR, CMP, ANEU, CBC, ADIFF, MG #### [place] [address] Electrolyte Balance 6.0 mEq/L Normal 4.0-15.0 [facility] MAIN Comment on above: Performed By: #### P HOS, GFR, CMP, ANEU, CBC, ADIFF, MG #### [place] [address] Glucose [Mass/Vol] 115 mg/dL Normal 82-115 [facility] MAIN Comment on above: Performed By: #### P HOS, GFR, CMP, ANEU, CBC, ADIFF, MG #### [place] [address] Potassium [Moles/Vol] 4.7 mmol/L Normal 3.5-5.0 [facility] MAIN Comment on above: Performed By: #### P HOS, GFR, CMP, ANEU, CBC, ADIFF, MG #### [place] [address] Sodium [Moles/Vol] 141 mmol/L Normal 136-145 [facility] MAIN Comment on above: Performed By: #### P HOS, GFR, CMP, ANEU, CBC, ADIFF, MG #### [place] [address] Urea nitrogen [Mass/Vol] 15.0 mg/dL Normal 8.0-22.0 [facility] MAIN Comment on above: Performed By: #### P HOS, GFR, CMP, ANEU, CBC, ADIFF, MG #### [place] [address] CBCon 03-20-2024 Erythrocyte distribution width (RBC) [Ratio] 14.9 % Normal 11.5-15.5 [facility] MAIN Comment on above: Performed By: #### P HOS, GFR, CMP, ANEU, CBC, ADIFF, MG #### [place] [address] Hematocrit (Bld) [Volume fraction] 44.4 % Normal 34.0-46.0 [facility] MAIN Comment on above: Performed By: #### P HOS, GFR, CMP, ANEU, CBC, ADIFF, MG #### [place] [address] Hgb 14.7 G/dL Normal 12.0-16.0 [facility] MAIN Comment on above: Performed By: #### P HOS, GFR, CMP, ANEU, CBC, ADIFF, MG #### [place] [address] MCH (RBC) [Entitic mass] 30.3 pg Normal 27.0-33.0 [facility] MAIN Comment on above: Performed By: #### P HOS, GFR, CMP, ANEU, CBC, ADIFF, MG #### [place] [address] MCHC 33.1 G/dL Normal 32.0-36.0 [facility] MAIN Comment on above: Performed By: #### P HOS, GFR, CMP, ANEU, CBC, ADIFF, MG #### [place] [id number] MCV (RBC) [Entitic vol] 91.5 fL Normal 80.0-99.0 [facility] MAIN Comment on above: Performed By: #### P HOS, GFR, CMP, ANEU, CBC, ADIFF, MG #### [place] [id number] Platelet 262 10 3/mcL Normal 150-450 [facility] MAIN Comment on above: Performed By: #### P HOS, GFR, CMP, ANEU, CBC, ADIFF, MG #### [place] [address] Platelet mean volume (Bld) [Entitic vol] 7.7 fL Normal 6.6-10.5 [facility] MAIN Comment on above: Performed By: #### P HOS, GFR, CMP, ANEU, CBC, ADIFF, MG #### [place] [id number] RBC 4.85 10 6/mcL Normal 4.10-5.30 [facility] MAIN Comment on above: Performed By: #### P HOS, GFR, CMP, ANEU, CBC, ADIFF, MG #### [place] [id number] WBC 14.3 10 3/mcL High 4.5-10.8 [facility] MAIN Comment on above: Performed By: #### P HOS, GFR, CMP, ANEU, CBC, ADIFF, MG #### [place] [address] Erythrocyte distribution width (RBC) [Ratio] 14.8 % Normal 11.5-15.5 [facility] MAIN Comment on above: Performed By: #### P HOS, GFR, CMP, ANEU, CBC, ADIFF, MG #### [place] [id number] Hematocrit (Bld) [Volume fraction] 43.3 % Normal 34.0-46.0 [facility] MAIN Comment on above: Performed By: #### P HOS, GFR, CMP, ANEU, CBC, ADIFF, MG #### [place] [address] Hgb 14.5 G/dL Normal 12.0-16.0 [facility] MAIN Comment on above: Performed By: #### P HOS, GFR, CMP, ANEU, CBC, ADIFF, MG #### [place] [address] MCH (RBC) [Entitic mass] 30.3 pg Normal 27.0-33.0 [facility] MAIN Comment on above: Performed By: #### P HOS, GFR, CMP, ANEU, CBC, ADIFF, MG #### [place] [address] MCHC 33.4 G/dL Normal 32.0-36.0 [facility] MAIN Comment on above: Performed By: #### P HOS, GFR, CMP, ANEU, CBC, ADIFF, MG #### [place] [address] MCV (RBC) [Entitic vol] 90.5 fL Normal 80.0-99.0 [facility] MAIN Comment on above: Performed By: #### P HOS, GFR, CMP, ANEU, CBC, ADIFF, MG #### [place] [address] Platelet 283 10 3/mcL Normal 150-450 [facility] MAIN Comment on above: Performed By: #### P HOS, GFR, CMP, ANEU, CBC, ADIFF, MG #### [place] [address] Platelet mean volume (Bld) [Entitic vol] 7.6 fL Normal 6.6-10.5 [facility] MAIN Comment on above: Performed By: #### P HOS, GFR, CMP, ANEU, CBC, ADIFF, MG #### [place] [address] RBC 4.78 10 6/mcL Normal 4.10-5.30 [facility] MAIN Comment on above: Performed By: #### P HOS, GFR, CMP, ANEU, CBC, ADIFF, MG #### [address] [address] WBC 14.4 10 3/mcL High 4.5-10.8 [facility] MAIN Comment on above: Performed By: #### P HOS, GFR, CMP, ANEU, CBC, ADIFF, MG #### [address] [address] CMPon 03-20-2024 Albumin Level 3.6 G/dL Normal 3.2-4.8 [facility] MAIN Comment on above: Performed By: #### P HOS, GFR, CMP, ANEU, CBC, ADIFF, MG #### [place] [id number] Albumin/Globulin [Mass ratio] 1.1 {ratio} Normal 0.9-1.6 [facility] MAIN Comment on above: Performed By: #### P HOS, GFR, CMP, ANEU, CBC, ADIFF, MG #### [place] [address] ALP [Catalytic activity/Vol] 134 U/L High 38-126 [facility] MAIN Comment on above: Performed By: #### P HOS, GFR, CMP, ANEU, CBC, ADIFF, MG #### [place] [id number] ALT [Catalytic activity/Vol] 34 U/L Normal 10-49 [facility] MAIN Comment on above: Performed By: #### P HOS, GFR, CMP, ANEU, CBC, ADIFF, MG #### [place] [id number] AST [Catalytic activity/Vol] 48 U/L High 8-34 [facility] MAIN Comment on above: Performed By: #### P HOS, GFR, CMP, ANEU, CBC, ADIFF, MG #### [place] [id number] Bili Total 0.30 mg/dL Normal 0.20-1.20 [facility] MAIN Comment on above: Result Comment: Use of this assay is not recommended for patients undergoing treatment with eltrombopag due to the potential for falsely elevated results. Performed By: #### P HOS, GFR, CMP, ANEU, CBC, ADIFF, MG #### [place] [id number] BUN/Creatinine Ratio 23.9 ratio High 10.0-22.0 [facility] MAIN Comment on above: Performed By: #### P HOS, GFR, CMP, ANEU, CBC, ADIFF, MG #### [address] [address] Calcium [Mass/Vol] 9.2 mg/dL Normal 8.7-10.4 [facility] MAIN Comment on above: Performed By: #### P HOS, GFR, CMP, ANEU, CBC, ADIFF, MG #### [place] [id number] Chloride [Moles/Vol] 111 mmol/L High 98-110 [facility] MAIN Comment on above: Performed By: #### P HOS, GFR, CMP, ANEU, CBC, ADIFF, MG #### [place] [id number] CO2 [Moles/Vol] 25 mmol/L Normal 22-32 [facility] MAIN Comment on above: Performed By: #### P HOS, GFR, CMP, ANEU, CBC, ADIFF, MG #### [place] [id number] Creatinine [Mass/Vol] 0.67 mg/dL Normal 0.50-1.20 [facility] MAIN Comment on above: Result Comment: Test ing performed on [employer] analyzer using enzymatic creatinine methodology. Performed By: #### P HOS, GFR, CMP, ANEU, CBC, ADIFF, MG #### [place] [address] Electrolyte Balance 5.0 mEq/L Normal 4.0-15.0 [facility] MAIN Comment on above: Performed By: #### P HOS, GFR, CMP, ANEU, CBC, ADIFF, MG #### [place] [id number] Globulin 3.4 G/dL Normal 1.5-3.8 [facility] MAIN Comment on above: Performed By: #### P HOS, GFR, CMP, ANEU, CBC, ADIFF, MG #### [address] [address] Glucose [Mass/Vol] 142 mg/dL High 82-115 [facility] MAIN Comment on above: Performed By: #### P HOS, GFR, CMP, ANEU, CBC, ADIFF, MG #### [address] [address] Potassium [Moles/Vol] 4.2 mmol/L Normal 3.5-5.0 [facility] MAIN Comment on above: Performed By: #### P HOS, GFR, CMP, ANEU, CBC, ADIFF, MG #### [address] [address] Sodium [Moles/Vol] 141 mmol/L Normal 136-145 [facility] MAIN Comment on above: Performed By: #### P HOS, GFR, CMP, ANEU, CBC, ADIFF, MG #### [address] [address] Total Protein 7.0 G/dL Normal 5.7-8.2 [facility] MAIN Comment on above: Result Comment: No te - New Reference Range in effect 20 Performed By: #### P HOS, GFR, CMP, ANEU, CBC, ADIFF, MG #### [address] [address] Urea nitrogen [Mass/Vol] 16.0 mg/dL Normal 8.0-22.0 [facility] MAIN Comment on above: Performed By: #### P HOS, GFR, CMP, ANEU, CBC, ADIFF, MG #### [address] [address] [address] ABD/PELVIS W/ IV CONTRAST ONLYon 03-20-2024 CT ABD/PELVIS W/ IV CONTRAST ONLY ORIGINAL EXAMINATION: CT OF THE ABDOMEN AND PELVIS WITH CONTRAST03/20/2024 8:13 am TECHNIQUE: CT of the abdomen and pelvis was performed with the administration of intravenous contrast. Multiplanar reformatted images are provided for review. Automated exposure control, iterative reconstruction, and/or weight based adjustment of the mA/kV was utilized to reduce the radiation dose to as low as reasonably achievable. COMPARISON: None HISTORY: ORDERING SYSTEM PROVIDED HISTORY: Reason for Exam: 03/20/2024 7:44 AM TRAUMA STANDBY. HIT FRONT HEAD RT EYE LAC/BRUISE. C COLLAR ON. 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 NEG LOC. pain; trauma patient FINDINGS: Dependent atelectasis seen in the lungs. The liver, spleen, adrenal glands, and pancreas are within normal limits. No filling defects seen in the gallbladder. The kidneys enhance symmetrically. No hydronephrosis. A left renal cyst measures 9 Hounsfield units and is compatible with a simple cyst. A complex right renal lesion measures 50 Hounsfield units and 2.2 cm. The large and small bowel demonstrate no obstruction. The appendix is normal. No free intraperitoneal fluid or gas is identified. The aorta is normal in caliber. There is mild atherosclerosis of the larger arteries. There is no lymphadenopathy. No filling defects seen in the urinary bladder. A modified burst fracture is seen at the superior endplate of T12. There is currently less than 25% loss of vertebral body height. There is a complex L4 vertebral body fracture which involves the anterior margin of the superior endplate. There is mild suppression depression of the L4 superior endplate. There is also a suspected mild compression fracture deformity of L3. Minimally offset fracture is noted of approximately the left 8th rib. Nondisplaced fracture seen of the left 10th rib. There is a displaced fracture of the left 11th rib. Rib fragments are offset by up to 7 mm. A left L2 transverse process fracture noted. There is likely a nondisplaced left L1 transverse process fracture. IMPRESSION: A modified burst fracture is noted of T12. There also irregular superior endplate fractures of L3 and L4 Numerous left lymph rib fractures. The left 11th rib fracture is significantly displaced Left transverse process fractures at L1 and L2 Complex right renal lesion. Routine follow-up MRI is advised to exclude a renal malignancy Other incidental findings, as above Interpreted by: Alexander Faustin MD Preliminary Report By: Alexander Faustin MD Electronically signed By Alexander Faustin MD Dictated Date: 03/20/2024 8:18:48 AM Prelim Date: 03/20/2024 8:27:31 AM Sign Date: 03/20/2024 8:27:31 AM Ordering Provider: [facility] MAIN CT HEAD OR BRAIN W/O CONTRAS Ton 03-20-2024 CT HEAD OR BRAIN W/O CONTRAST ORIGINAL EXAMINATION: Exam Title:CT OF THE HEAD WITHOUT CONTRAST Completed Time: 03/20/2024 7:56 am Procedure Description:CT HEAD/BRAIN WITHOUT CONTRAST COMPARISON: No direct comparison available HISTORY: ORDERING SYSTEM PROVIDED HISTORY: Reason for Exam: TRAUMA STANDBY. HIT FRONT HEAD RT EYE LAC/BRUISE. C COLLAR ON. 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 NEG LOC. pain; trauma patient TECHNIQUE: Non-contrast CT head performed according to protocol. Multiplanar reconstructions performed. This exam was performed according to our departmental dose optimization program, and includes the following measures where applicable: automated exposure control, adjustment of the mAs and/or kVp according to patient size and/or exam, and an iterative reconstruction algorithm. FINDINGS: Tiny amount of subcutaneous soft tissue swelling right supraorbital location. There is no gross intracranial hemorrhage, midline shift, or mass effect . No evidence for major vessel acute ischemic change. No acute osseous abnormality. Included portions of the globes, retrobulbar soft tissue, paranasal sinuses, mastoid air cells, and middle ears are normal in appearance. IMPRESSION: Subcutaneous soft tissue swelling. No acute intracranial process demonstrated. CT head exam limited for evaluation for subtle acute ischemic process. Interpreted by: Myrna Mondragon DO Preliminary Report By: Myrna Mondragon DO Electronically signed By Myrna Mondragon DO Dictated Date: 03/20/2024 7:58:24 AM Prelim Date: 03/20/2024 8:00:05 AM Sign Date: 03/20/2024 8:00:05 AM Ordering Provider: [facility] MAIN CT SPINE CERVICAL W/O CONTRA Gabriel 03-20-2024 CT SPINE CERVICAL W/O CONTRAST ORIGINAL EXAMINATION: Exam Title:CT OF THE CERVICAL SPINE WITHOUT CONTRAST Completed Time: 03/20/2024 7:59 am Procedure Description:CT CERVICAL SPINE WITHOUT CONTRAST COMPARISON: No direct comparison available HISTORY: ORDERING SYSTEM PROVIDED HISTORY: Reason for Exam: 03/20/2024 7:44 AM TRAUMA STANDBY. HIT FRONT HEAD RT EYE LAC/BRUISE. C COLLAR ON. 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 NEG LOC. pain; trauma [id number] TECHNIQUE: Noncontrast CT performed according to protocol with multiplanar reconstructions. This exam was performed according to our departmental dose optimization program, and includes the following measures where applicable: automated exposure control, adjustment of the mAs and/or kVp according to patient size and/or exam, and an iterative reconstruction algorithm. FINDINGS: Anterior fixating plate and screws C6-C7. No evidence for hardware complication, or acute osseous abnormality. Grade 1 anterolisthesis C4 on C5 and C5 on C6. Moderate diffuse degenerative facet change. Mild atrophy paraspinal musculature. Included portion of trachea patent. IMPRESSION:[] No acute osseous abnormality demonstrated within the limits of this exam. Chronic and operative changes cervical spine. Note: Due to time limits, this images were reviewed and report signed even though it is missing multiple coronal cervical spine images. These were requested via core team at 8:02 a.m. March 20, 2024. If missing images are provided for review, an addendum will be added. Interpreted by: Myrna Mondragon DO Preliminary Report By: Myrna Mondragon DO Electronically signed By Myrna Mondragon DO Dictated Date: 03/20/2024 8:00:54 AM Prelim Date: 03/20/2024 8:21:15 AM Sign Date: 03/20/2024 8:21:15 AM Ordering Provider: [facility] MAIN CT THORAX W/ CONTRASTon 03-01 CT THORAX W/ CONTRAST ORIGINAL EXAMINATION: CT CHEST WITH CONTRAST 03/20/2024 8:13 am HISTORY: ORDERING SYSTEM PROVIDED HISTORY: Reason for Exam: 03/20/2024 7:44 AM TRAUMA STANDBY. HIT FRONT HEAD RT EYE LAC/BRUISE. C COLLAR ON. 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 NEG LOC. pain; trauma patient - suspect aortic rupture, pulmonary trauma TECHNIQUE Multiple-row detector helical CT examination of the thorax with IV contrast. Axial, sagittal, and coronal reconstructed images. This exam was performed according to the departmental dose-optimization program which includes automated exposure control, adjustment of the mA and/or kV according to patient size and/or use of iterative reconstruction technique. COMPARISON Chest x-ray 02/29/2024 FINDINGS The heart is normal in size. No coronary artery calcifications identified. No pericardial effusion. The great vessels are normal in caliber. No lymphadenopathy identified. A borderline right hilar lymph node on image 37 measures 9 mm in short axis. A prominent lymph node in the AP window measures 7 mm in short axis. Atelectasis noted in the lungs. There is no pneumothorax or pleural fluid. No endotracheal or endobronchial lesions seen. Fusion plate noted in the lower cervical spine. An acute fracture seen of the lateral left 8th rib. No significant displacement. There is also a fracture of the left 10th rib which is nondisplaced. No aggressive osseous lesions identified. No suspicious findings seen in the visualized abdomen. IMPRESSION Nondisplaced left rib fractures. No visible pneumothorax Prominent lymph nodes do not currently meet criteria for lymphadenopathy Interpreted by: Alexander Faustin MD Preliminary Report By: Alexander Faustin MD Electronically signed By Alexander Faustin MD Dictated Date: 03/20/2024 8:13:53 AM Prelim Date: 03/20/2024 8:18:41 AM Sign Date: 03/20/2024 8:18:41 AM Ordering Provider: [facility] MAIN LABORATORYOrdered By: SYSTEM SYSTEM on 03-20-2024 Basophils (Bld) [#/Vol] 0.0 103/mcL Normal 0.0 - 0.3 10^3/mcL AH Workflow SS Basophils/100 WBC (Bld) 0.3 % Normal 0.0 - 2.5 % AH Workflow SS Calcium [Mass/Vol] 9.1 mg/dL Normal 8.7 - 10. 4 mg/dL AH ADM SS Chloride [Moles/Vol] 111 mmol/L High 98 - 11 0 mEq/L ADM SS CO2 [Moles/Vol] 24 mmol/L Normal 22 - 32 mEq/L AH ADM SS Creatinine [Mass/Vol] 0.61 mg/dL Normal 0.50 - 1.20 mg/dL AH ADM SS Comment on above: Interpretive Data: T esting performed on [employer] analyzer using enzymatic creatinine methodology. Electrolyte Balance 6.0 mEq/L Normal 4.0 - 15 .0 mEq/L ADM SS Eosinophils (Bld) [#/Vol] 0.0 103/mcL Normal 0.0 - 0.7 10^3/mcL AH Workflow SS Eosinophils/100 WBC (Bld) 0.3 % Normal 0.0 - 6.0 % AH Workflow SS Erythrocyte distribution width (RBC) [Ratio] 14.9 % Normal 11.5 - 15.5 % AH Workflow SS GFR/1.73 sq M.predicted among blacks MDRD (S/P/Bld) [Vol rate/Area] ml/min/1.73sqm Invalid Interpretation Code [facility] Comment on above: Interpretive Data: GFR Population mean for , Non- Americans Ages 20-29 = 116 mL/min/1.73 sq.m. Ages 30-39 = 107 mL/min/1.73 sq.m. Ages 40-49 = 99 mL/min/1.73 sq.m. Ages 50-59 = 93 mL/min/1.73 sq.m. Ages 60-69 = 85 mL/min/1.73 sq.m. Ages 70+ = 75 mL/min/1.73 sq.m. Chronic Kidney Disease: Less than 60 mL/min/1.73 square meters End Stage Renal Disease: Less than 15 mL/min/1.73 square meters GFR/1.73 sq M.predicted among non-blacks MDRD (S/P/Bld) [Vol rate/Area] ml/min/1.73sqm Invalid Interpretation Code [facility] Comment on above: Interpretive Data: GFR Population mean for , Non- Americans Ages 20-29 = 116 mL/min/1.73 sq.m. Ages 30-39 = 107 mL/min/1.73 sq.m. Ages 40-49 = 99 mL/min/1.73 sq.m. Ages 50-59 = 93 mL/min/1.73 sq.m. Ages 60-69 = 85 mL/min/1.73 sq.m. Ages 70+ = 75 mL/min/1.73 sq.m. Chronic Kidney Disease: Less than 60 mL/min/1.73 square meters End Stage Renal Disease: Less than 15 mL/min/1.73 square meters Glucose [Mass/Vol] 115 mg/dL Normal 82 - 115 mg/dL ADM SS Hematocrit (Bld) [Volume fraction] 44.4 % Normal 34.0 - 46.0 % Workflow SS Hemoglobin (Bld) [Mass/Vol] 14.7 G/dL Normal 12.0 - 16.0 G/dL Workflow SS Lymphocytes (Bld) [#/Vol] 0.6 103/mcL Low 0.9 - 4.3 10^3/mcL Workflow SS Lymphocytes/100 WBC (Bld) 3.9 % Low 20.0 - 40.0 % Workflow SS MCH (RBC) [Entitic mass] 30.3 pg Normal 27.0 - 33.0 pg Workflow SS MCHC 33.1 G/dL Normal 32.0 - 36.0 G/dL Workflow SS MCV (RBC) [Entitic vol] 91.5 fL Normal 80.0 - 99.0 fL AH Workflow SS Monocytes (Bld) [#/Vol] 0.4 103/mcL Normal 0.1 - 1.4 10^3/mcL AH Workflow SS Monocytes/100 WBC (Bld) 3.1 % Normal 2.0 - 13.0 % AH Workflow SS Neutrophils (Bld) [#/Vol] 13.2 103/mcL High 2.3 - 8.1 10^3/mcL AH Workflow SS Neutrophils/100 WBC (Bld) 92.4 % High 50.0 - 75.0 % AH Workflow SS Platelet mean volume (Bld) [Entitic vol] 7.7 fL Normal 6.6 - 10.5 fL Workflow SS Platelets (Bld) [#/Vol] 262 103/mcL Normal 150 - 450 10^3/mcL AH Workflow SS Potassium [Moles/Vol] 4.7 mmol/L Normal 3.5 - 5.0 mEq/L ADM SS RBC (Bld) [#/Vol] 4.85 106/mcL Normal 4.10 - 5.30 10^6/mcL Workflow SS Sodium [Moles/Vol] 141 mmol/L Normal 136 - 145 mEq/L ADM SS Troponin I.cardiac DL <= 0.01 ng/mL [Mass/Vol] ng/L Normal 0 - 34 ng/L ADM SS Comment on above: Interpretive Data: High Sensitive Troponin I Reference Ranges: Female: 0-34 ng/L Male: 0-54 ng/L Testing performed on [employer] analyzer using direct chemiluminescent technology. Urea nitrogen [Mass/Vol] 15.0 mg/dL Normal 8.0 - 22.0 mg/dL ADM SS Urea nitrogen/Creatinine [Mass ratio] 24.6 ratio High 10.0 - 22.0 ratio ADM SS WBC (Bld) [#/Vol] 14.3 103/mcL High 4.5 - 10.8 10^3/mcL AH Workflow SS Albumin BCP dye [Mass/Vol] 3.6 G/dL Normal 3.2 - 4.8 G/dL ADM SS Albumin/Globulin [Mass ratio] 1.1 {ratio} Normal 0.9 - 1.6 ratio ADM SS ALP [Catalytic activity/Vol] 134 U/L High 38 - 126 U/L ADM SS ALT No additional P-5'-P [Catalytic activity/Vol] 34 U/L Normal 10 - 49 U/L ADM SS AST [Catalytic activity/Vol] 48 U/L High 8 - 34 U/L ADM SS Bilirubin [Mass/Vol] 0.30 mg/dL Normal 0.20 - 1.20 mg/dL ADM SS Comment on above: Interpretive Data: U se of this assay is not recommended for patients undergoing treatment with eltrombopag due to the potential for falsely elevated results. Ethanol [Mass/Vol] mg/dL Invalid Interpretation Code ADM SS Globulin 3.4 G/dL Normal 1.5 - 3.8 G/dL ADM SS Lipase [Catalytic activity/Vol] 33 U/L Normal 12 - 53 U/L ADM SS Comment on above: Interpretive Data: * *Note - New Reference Range in effect 20 Monocyte distribution width Auto (Bld) [Entitic vol] 16.51 1 Normal 0.00 - 20.00 Workflow SS Comment on above: Result Comment: For ED adult patients suspected of sepsis, MDW<=20.0 does not rule out sepsis or risk of sepsis Protein [Mass/Vol] 7.0 G/dL Normal 5.7 - 8.2 G/dL ADM Comment on above: Interpretive Data: * *Note - New Reference Range in effect 20 LIPon 03-20-2024 Lipase Level 33 U/L Normal 12-53 [facility] MAIN Comment on above: Result Comment: No te - New Reference Range in effect 20 Performed By: #### P HOS, GFR, CMP, ANEU, CBC, ADIFF, MG #### [address] 03-20-2024 High Sensitivity Troponin I <3 Normal 0-34 [facility] MAIN Comment on above: Result Comment: High Sensitive Troponin I Reference Ranges: Female: 0-34 ng/L Male: 0-54 ng/L Testing performed on [employer] analyzer using direct chemiluminescent technology. Performed By: #### P HOS, GFR, CMP, ANEU, CBC, ADIFF, MG #### [place] [address] XR ANKLE MINIMUM 3 VIEWS LEF Ton 03-20-2024 XR ANKLE MINIMUM 3 VIEWS LEFT ORIGINAL EXAMINATION: THREE XRAY VIEWS OF THE LEFT ANKLE 03/20/2024 7:32 am COMPARISON: None. HISTORY: ORDERING SYSTEM PROVIDED HISTORY: Reason for Exam: pain FINDINGS: There is a 12 mm fragment of bone from the distal end of the left fibula and displaced laterally by 5 mm. A 6 mm ossific fragment is located the tip of the medial malleolus. Posterior malleolus is intact. There is no fracture of the talus or calcaneus. IMPRESSION: Mildly displaced fracture of the lateral malleolus. Ossific fragment at the tip of the medial malleolus is consistent with a fracture of indeterminate age without significant displacement. Interpreted by: Maverick Scott MD Preliminary Report By: Maverick Scott MD Electronically signed By Maverick Scott MD Dictated Date: 03/20/2024 7:32:33 AM Prelim Date: 03/20/2024 7:35:28 AM Sign Date: 03/20/2024 7:35:28 AM Ordering Provider: [facility] MAIN XR CHEST 1 VIEWon 03-20-2024 XR CHEST 1 VIEW ORIGINAL EXAMINATION: ONE XRAY VIEW OF THE CHEST 03/20/2024 7:28 am COMPARISON: None. HISTORY: ORDERING SYSTEM PROVIDED HISTORY: Reason for Exam: pain; trauma patient FINDINGS: The heart size is normal. There is no acute lung infiltrate or edema. No pneumothorax or pleural fluid is present. No fractures are detected. Patient has had anterior cervical disc fusion. IMPRESSION: No acute abnormality of the chest. Interpreted by: Maverick Scott MD Preliminary Report By: Maverick Scott MD Electronically signed By Maverick Scott MD Dictated Date: 03/20/2024 7:29:06 AM Prelim Date: 03/20/2024 7:29:44 AM Sign Date: 03/20/2024 7:29:44 AM Ordering Provider: [facility] MAIN XR PELVIS 1 OR 2 VIEWSon XR PELVIS 1 OR 2 VIEWS ORIGINAL EXAMINATION: ONE XRAY VIEW OF THE PELVIS 03/20/2024 7:30 am COMPARISON: None. HISTORY: ORDERING SYSTEM PROVIDED HISTORY: Reason for Exam: pain FINDINGS: There is no pelvic fracture. Sacroiliac joints and pubic symphysis have normal alignment. No fracture or dislocation of either hip is present. IMPRESSION: No acute bone abnormality. Interpreted by: Maverick Scott MD Preliminary Report By: Maverick Scott MD Electronically signed By Maverick Scott MD Dictated Date: 03/20/2024 7:31:58 AM Prelim Date: 03/20/2024 7:32:26 AM Sign Date: 03/20/2024 7:32:26 AM Ordering Provider: [facility] MAIN 36on 02-27-2024 36 Last ov- 03/04/2023 Next ov-03/09/2024 Normal [facility] CALCIFIDIOL ([id number]) VIT D 25 Ordered By: Line Dancer on 11-12-2022 25-hydroxyvitamin D [Mass/Vol] 29.0 ng/mL Abnormal 30.0-100.0 [facility]; [facility] Work Phone: CBC W/AUTO DIFF WBC ([id number])O rdered By: Line Dancer on 11-12-2022 Basophils (Bld) [#/Vol] 0.1 10*3/uL Normal 0.0-0.2 [facility]; [facility] Work Phone: Basophils/100 WBC (Bld) 1 % Normal [facility]; [facility] Work Phone: Eosinophils (Bld) [#/Vol] 0.1 10*3/uL Normal 0.0-0.4 [facility]; [facility] Work Phone: Eosinophils/100 WBC (Bld) 1 % Normal [facility]; [facility] Work Phone: Erythrocyte distribution width (RBC) [Ratio] 13.3 % Normal 11.7-15.4 [facility]; [facility] Work Phone: Hematocrit (Bld) [Volume fraction] 45.3 % Normal 34.0-46.6 [facility]; [facility] Work Phone: Hemoglobin (Bld) [Mass/Vol] 15.0 g/dL Normal 11.1-15.9 [facility]; [facility] Work Phone: Immature granulocytes (Bld) [#/Vol] 0.0 10*3/uL Normal 0.0-0.1 [facility]; [facility] Work Phone: Immature granulocytes/100 WBC (Bld) 0 % Normal [facility]; [facility] Work Phone: Lymphocytes (Bld) [#/Vol] 1.0 10*3/uL Normal 0.7-3.1 [facility]; [facility] Work Phone: Lymphocytes/100 WBC (Bld) 10 % Normal [facility]; [facility] Work Phone: MCH (RBC) [Entitic mass] 28.5 pg Normal 26.6-33.0 [facility]; [facility] Work Phone: MCHC (RBC) [Mass/Vol] 33.1 g/dL Normal 31.5-35.7 [facility]; [facility] Work Phone: MCV (RBC) [Entitic vol] 86 fL Normal 79-97 [facility]; [facility] Work Phone: Monocytes (Bld) [#/Vol] 0.5 10*3/uL Normal 0.1-0.9 [facility]; [facility] Work Phone: Monocytes/100 WBC (Bld) 5 % Normal [facility]; [facility] Work Phone: Neutrophils (Bld) [#/Vol] 8.3 10*3/uL Abnormal 1.4-7.0 [facility]; [facility] Work Phone: Neutrophils/100 WBC (Bld) 83 % Normal [facility]; [facility] Work Phone: Platelets (Bld) [#/Vol] 325 10*3/uL Normal 150-450 [facility]; [facility] Work Phone: RBC (Bld) [#/Vol] 5.26 10*6/uL Normal 3.77-5.28 [facility]; [facility] Work Phone: WBC (Bld) [#/Vol] 9.9 10*3/uL Normal 3.4-10.8 [facility]; [facility] Work Phone: LIPID PANEL ([id number])Ordered B y: Line Dancer on 11-12-2022 Cholesterol [Mass/Vol] 191 mg/dL Normal 100-199 [facility]; [facility] Work Phone: Cholesterol in HDL [Mass/Vol] 68 mg/dL Normal [facility]; [facility] Work Phone: Triglyceride [Mass/Vol] 57 mg/dL Normal 0-149 [facility]; [facility] Work Phone: LIPID PANEL ([id number]) 11 mg/dL Normal 5-40 [facility]; [facility] Work Phone: LIPID PANEL ([id number]) 112 mg/dL Abnormal 0-99 [facility]; [facility] Work Phone: LIPID PANEL ([id number]) 1.6 {ratio} Normal 0.0-3.2 [facility]; [facility] Work Phone: METABOLIC PANEL, COMPREHENSI VE ([id number])Ordered By: Line Dancer on 11-12-2022 Albumin [Mass/Vol] 4.3 g/dL Normal 3.8-4.9 [facility]; [facility] Work Phone: Albumin/Globulin [Mass ratio] 2.0 {ratio} Normal 1.2-2.2 [facility]; [facility] Work Phone: ALP [Catalytic activity/Vol] 129 U/L Abnormal 44-121 [facility]; [facility] Work Phone: ALT [Catalytic activity/Vol] 18 U/L Normal 0-32 [facility]; [facility] Work Phone: AST [Catalytic activity/Vol] 13 U/L Normal 0-40 [facility]; [facility] Work Phone: Bilirubin [Mass/Vol] mg/dL Normal 0.0-1.2 [facility]; [facility] Work Phone: Calcium [Mass/Vol] 9.1 mg/dL Normal 8.7-10.2 [facility]; [facility] Work Phone: Chloride [Moles/Vol] 104 mmol/L Normal 96-106 [facility]; [facility] Work Phone: CO2 [Moles/Vol] 21 mmol/L Normal 20-29 [facility]; [facility] Work Phone: Creatinine [Mass/Vol] 0.76 mg/dL Normal 0.57-1.00 [facility]; [facility] Work Phone: Globulin (S) [Mass/Vol] 2.2 g/dL Normal 1.5-4.5 [facility]; [facility] Work Phone: Glucose [Mass/Vol] 96 mg/dL Normal 70-99 [facility]; [facility] Work Phone: Potassium [Moles/Vol] 4.3 mmol/L Normal 3.5-5.2 [facility]; [facility] Work Phone: Protein [Mass/Vol] 6.5 g/dL Normal 6.0-8.5 [facility]; [facility] Work Phone: Sodium [Moles/Vol] 141 mmol/L Normal 134-144 [facility]; [facility] Work Phone: Urea nitrogen [Mass/Vol] 11 mg/dL Normal 6-24 [facility]; [facility] Work Phone: Urea nitrogen/Creatinine [Mass ratio] 14 mg/mg Normal 9-23 [facility]; [facility] Work Phone: METABOLIC PANEL, COMPREHENSIVE ([id number]) 91 mL/min/1.73 Normal [facility]; [facility] Work Phone: MICROALBUMINOrdered By: Syst em Hoop Coiling Machine Operator on 11-12-2022 Albumin DL <= 20 mg/L (U) [Mass/Vol] mg/dL Normal [facility]; [facility] Work Phone: Albumin/Creatinine (U) [Mass ratio] <4 Normal 0-29 [facility]; [facility] Work Phone: Creatinine (U) [Mass/Vol] 69.8 mg/dL Normal [facility]; [facility] Work Phone: TSH ([id number])Ordered By: Poacht App m Hoop Coiling Machine Operator on 11-12-2022 TSH Qn 1.560 {uIU/mL} Normal 0.450-4.50 0 [facility]; [facility] Work Phone: URINALYSIS, W/ MICRO ([id number]) Ordered By: Line Dancer on 11-12-2022 Appearance (U) Clear Normal [facility]; [facility] Work Phone: Bilirubin Ql (U) Negative Normal [facility]; [facility] Work Phone: Color (U) Yellow Normal [facility]; [facility] Work Phone: Glucose Ql (U) Negative Normal [facility]; [facility] Work Phone: Hemoglobin Ql (U) Negative Normal [facility]; [facility] Work Phone: Ketones Ql (U) Negative Normal [facility]; [facility] Work Phone: Leukocyte esterase Test strip Ql (U) Negative Normal [facility]; [facility] Work Phone: Microscopic observation LM Nom (Urine sed) MICRON Normal [facility]; [facility] Work Phone: Microscopic observation LM Nom (Urine sed) See below: Normal [facility]; [facility] Work Phone: Nitrite Ql (U) Negative Normal [facility]; [facility] Work Phone: pH (U) 7.0 [pH] Normal 5.0-7.5 [facility]; [facility] Work Phone: Protein Ql (U) Negative Normal [facility]; [facility] Work Phone: Specific gravity (U) [Rel density] 1.022 1 Normal 1.005-1.03 0 [facility]; [facility] Work Phone: Urobilinogen (U) [Mass/Vol] 0.2 mg/dL Normal 0.2-1.0 [facility]; [facility] Work Phone: VITAMIN B-12 (CYANOCOBALAMIN ) ([id number])Ordered By: Line Dancer on 11-12-2022 Cobalamin (Vitamin B12) [Mass/Vol] pg/mL Abnormal 232-1245 [facility]; [facility] Work Phone: HGB A1C ([id number])Ordered By: S ystem Hoop Coiling Machine Operator on 08-06-2022 HbA1c (Bld) [Mass fraction] 6.0 % Abnormal 4.8-5.6 [facility]; [facility] Work Phone: CALCIFIDIOL ([id number]) VIT D 25 Ordered By: Line Dancer on 04-30-2022 25-hydroxyvitamin D [Mass/Vol] 34.8 ng/mL Normal 30.0-100.0 [facility]; [facility] Work Phone: CBC W/AUTO DIFF WBC ([id number])O rdered By: Line Dancer on 04-30-2022 Basophils (Bld) [#/Vol] 0.0 10*3/uL Normal 0.0-0.2 [facility]; [facility] Work Phone: Basophils/100 WBC (Bld) 1 % Normal [facility]; [facility] Work Phone: Eosinophils (Bld) [#/Vol] 0.2 10*3/uL Normal 0.0-0.4 [facility]; [facility] Work Phone: Eosinophils/100 WBC (Bld) 2 % Normal [facility]; [facility] Work Phone: Erythrocyte distribution width (RBC) [Ratio] 14.1 % Normal 11.7-15.4 [facility]; [facility] Work Phone: Hematocrit (Bld) [Volume fraction] 42.7 % Normal 34.0-46.6 [facility]; [facility] Work Phone: Hemoglobin (Bld) [Mass/Vol] 13.9 g/dL Normal 11.1-15.9 [facility]; [facility] Work Phone: Immature granulocytes (Bld) [#/Vol] 0.0 10*3/uL Normal 0.0-0.1 [facility]; [facility] Work Phone: Immature granulocytes/100 WBC (Bld) 0 % Normal [facility]; [facility] Work Phone: Lymphocytes (Bld) [#/Vol] 0.9 10*3/uL Normal 0.7-3.1 [facility]; [facility] Work Phone: Lymphocytes/100 WBC (Bld) 11 % Normal [facility]; [facility] Work Phone: MCH (RBC) [Entitic mass] 28.3 pg Normal 26.6-33.0 [facility]; [facility] Work Phone: MCHC (RBC) [Mass/Vol] 32.6 g/dL Normal 31.5-35.7 [facility]; [facility] Work Phone: MCV (RBC) [Entitic vol] 87 fL Normal 79-97 [facility]; [facility] Work Phone: Monocytes (Bld) [#/Vol] 0.4 10*3/uL Normal 0.1-0.9 [facility]; [facility] Work Phone: Monocytes/100 WBC (Bld) 5 % Normal [facility]; [facility] Work Phone: Neutrophils (Bld) [#/Vol] 6.7 10*3/uL Normal 1.4-7.0 [facility]; [facility] Work Phone: Neutrophils/100 WBC (Bld) 81 % Normal [facility]; [facility] Work Phone: Platelets (Bld) [#/Vol] 320 10*3/uL Normal 150-450 [facility]; [facility] Work Phone: RBC (Bld) [#/Vol] 4.91 10*6/uL Normal 3.77-5.28 [facility]; [facility] Work Phone: WBC (Bld) [#/Vol] 8.3 10*3/uL Normal 3.4-10.8 [facility]; [facility] Work Phone: HGB A1C ([id number])Ordered By: S ystem Hoop Coiling Machine Operator on 04-30-2022 HbA1c (Bld) [Mass fraction] 5.9 % Abnormal 4.8-5.6 [facility]; [facility] Work Phone: LIPID PANEL ([id number])Ordered B y: Line Dancer on 04-30-2022 Cholesterol [Mass/Vol] 193 mg/dL Normal 100-199 [facility]; [facility] Work Phone: Cholesterol in HDL [Mass/Vol] 71 mg/dL Normal [facility]; [facility] Work Phone: Triglyceride [Mass/Vol] 51 mg/dL Normal 0-149 [facility]; [facility] Work Phone: LIPID PANEL ([id number]) 10 mg/dL Normal 5-40 [facility]; [facility] Work Phone: LIPID PANEL ([id number]) 112 mg/dL Abnormal 0-99 [facility]; [facility] Work Phone: LIPID PANEL ([id number]) 1.6 {ratio} Normal 0.0-3.2 [facility]; [facility] Work Phone: METABOLIC PANEL, COMPREHENSI VE ([id number])Ordered By: Line Dancer on 04-30-2022 Albumin [Mass/Vol] 4.2 g/dL Normal 3.8-4.9 [facility]; [facility] Work Phone: Albumin/Globulin [Mass ratio] 1.9 {ratio} Normal 1.2-2.2 [facility]; [facility] Work Phone: ALP [Catalytic activity/Vol] 110 U/L Normal 44-121 [facility]; [facility] Work Phone: ALT [Catalytic activity/Vol] 16 U/L Normal 0-32 [facility]; [facility] Work Phone: AST [Catalytic activity/Vol] 13 U/L Normal 0-40 [facility]; [facility] Work Phone: Bilirubin [Mass/Vol] mg/dL Normal 0.0-1.2 [facility]; [facility] Work Phone: Calcium [Mass/Vol] 8.9 mg/dL Normal 8.7-10.2 [facility]; [facility] Work Phone: Chloride [Moles/Vol] 106 mmol/L Normal 96-106 [facility]; [facility] Work Phone: CO2 [Moles/Vol] 24 mmol/L Normal 20-29 [facility]; [facility] Work Phone: Creatinine [Mass/Vol] 0.70 mg/dL Normal 0.57-1.00 [facility]; [facility] Work Phone: Globulin (S) [Mass/Vol] 2.2 g/dL Normal 1.5-4.5 [facility]; [facility] Work Phone: Glucose [Mass/Vol] 85 mg/dL Normal 70-99 [facility]; [facility] Work Phone: Potassium [Moles/Vol] 4.4 mmol/L Normal 3.5-5.2 [facility]; [facility] Work Phone: Protein [Mass/Vol] 6.4 g/dL Normal 6.0-8.5 [facility]; [facility] Work Phone: Sodium [Moles/Vol] 143 mmol/L Normal 134-144 [facility]; [facility] Work Phone: Urea nitrogen [Mass/Vol] 9 mg/dL Normal 6-24 [facility]; [facility] Work Phone: Urea nitrogen/Creatinine [Mass ratio] 13 mg/mg Normal 9-23 [facility]; [facility] Work Phone: METABOLIC PANEL, COMPREHENSIVE ([id number]) 100 mL/min/1.73 Normal [facility]; [facility] Work Phone: MICROALBUMINOrdered By: Short Fuze em Hoop Coiling Machine Operator on 04-30-2022 Albumin DL <= 20 mg/L (U) [Mass/Vol] mg/dL Normal [facility]; [facility] Work Phone: Albumin/Creatinine (U) [Mass ratio] <5 Normal 0-29 [facility]; [facility] Work Phone: Creatinine (U) [Mass/Vol] 58.2 mg/dL Normal [facility]; [facility] Work Phone: TSH ([id number])Ordered By: Short Fuzee m Hoop Coiling Machine Operator on 04-30-2022 TSH Qn 1.410 {uIU/mL} Normal 0.450-4.50 0 [facility]; [facility] Work Phone: URINALYSIS, W/ MICRO ([id number]) Ordered By: Line Dancer on 04-30-2022 Appearance (U) Clear Normal [facility]; [facility] Work Phone: Bilirubin Ql (U) Negative Normal [facility]; [facility] Work Phone: Color (U) Yellow Normal [facility]; [facility] Work Phone: Glucose Ql (U) Negative Normal [facility]; [facility] Work Phone: Hemoglobin Ql (U) Negative Normal [facility]; [facility] Work Phone: Ketones Ql (U) Negative Normal [facility]; [facility] Work Phone: Leukocyte esterase Test strip Ql (U) Negative Normal [facility]; [facility] Work Phone: Microscopic observation LM Nom (Urine sed) MICRON Normal [facility]; [facility] Work Phone: Microscopic observation LM Nom (Urine sed) See below: Normal [facility]; [facility] Work Phone: Nitrite Ql (U) Negative Normal [facility]; [facility] Work Phone: pH (U) 6.5 [pH] Normal 5.0-7.5 [facility]; [facility] Work Phone: Protein Ql (U) Negative [facility]; [facility] Work Phone: Specific gravity (U) [Rel density] 1.018 1 Normal 1.005-1.03 0 [facility]; [facility] Work Phone: Urobilinogen (U) [Mass/Vol] 0.2 mg/dL Normal 0.2-1.0 [facility]; [facility] Work Phone: VITAMIN B-12 (CYANOCOBALAMIN ) ([id number])Ordered By: Line Dancer on 04-30-2022 Cobalamin (Vitamin B12) [Mass/Vol] 1259 pg/mL Abnormal 232-1245 [facility]; [facility] Work Phone: HGB A1C ([id number])Ordered By: Allyn ystem Hoop Coiling Machine Operator on 01-23-2022 HbA1c (Bld) [Mass fraction] 6.2 % Abnormal 4.8-5.6 [facility]; [facility] Work Phone: Comment on above: . Prediabetes: 5.7 - 6.4 Diabetes: >6.4 Glycemic control for adults with diabetes: <7.0 STANDING ORDER; PATIENT NOT FASTINGPERFORMED BY: [facility] [facility] [id number] VITAMIN B-12 (CYANOCOBALAMIN ) (83108)Ordered By: Line Dancer on 01-23-2022 Cobalamin (Vitamin B12) [Mass/Vol] 999 pg/mL Normal 232-1245 [facility]; [facility] Work Phone: Comment on above: PATIENT NOT FASTINGP ERFORMED BY: TAVIA eflow Ctfmjr[address]81 [address] [facility]American [facility] [id number] CALCIFIDIOL (19657) VIT D 25 Ordered By: Line Dancer on 10-02-2021 25-hydroxyvitamin D [Mass/Vol] 29.6 ng/mL Abnormal 30.0-100.0 [facility]; [facility] Work Phone: Comment on above: Vitamin D deficiency has been defined by the [place] of[place] and an Endocrine Society practice guideline as alevel of serum 25-OH vitamin D less than 20 ng/mL (1,2).The Endocrine Society went on to further define vitamin Dinsufficiency as a level between 21 and 29 ng/mL (2).1. IOM ([place] of Medicine). 2010. Dietary reference intakes for calcium and D. [place]: The National Academies Press.2. Fatmata MF, Neeta NC, Aliyah TOBAR, et al. Evaluation, treatment, and prevention of vitamin D deficiency: an Endocrine Society clinical practice guideline. JCEM. 2010; 96(7):1911-30. PATIENT NOT FASTINGP ERFORMED BY: TAVIA [employer] [facility] [id number] HGB A1C ([id number])Ordered By: Allyn ystem Hoop Coiling Machine Operator on 10-02-2021 HbA1c (Bld) [Mass fraction] 6.1 % Abnormal 4.8-5.6 [facility]; [facility] Work Phone: Comment on above: . Prediabetes: 5.7 - 6.4 Diabetes: >6.4 Glycemic control for adults with diabetes: <7.0 STANDING ORDER; PATIENT NOT FASTINGPERFORMED BY: TAVIA eflow Nfintp4982 [facility] [id number] VITAMIN B-12 (CYANOCOBALAMIN ) (28526)Ordered By: Line Dancer on 10-02-2021 Cobalamin (Vitamin B12) [Mass/Vol] 674 pg/mL Normal 232-1245 [facility]; [facility] Work Phone: Comment on above: PATIENT NOT FASTINGP ERFORMED BY: [employer]6370 [facility]dayAt[facility] [id number] CALCIFIDIOL (78267) VIT D 25 Ordered By: Line Dancer on 06-01-2021 25-hydroxyvitamin D [Mass/Vol] 26.6 ng/mL Abnormal 30.0-100.0 [facility]; [facility] Work Phone: Comment on above: Vitamin D deficiency has been defined by the [place] of[facility] and an Endocrine Society practice guideline as alevel of serum 25-OH vitamin D less than 20 ng/mL (1,2).The Endocrine Society went on to further define vitamin Dinsufficiency as a level between 21 and 29 ng/mL (2).1. IOM ([place] of Medicine). 2010. Dietary reference intakes for calcium and D. [place]: The National AcademYotomo Press.2. Fatmata MF, Neeta BROTHERS, Aliyah TOBAR, et al. Evaluation, treatment, and prevention of vitamin D deficiency: an Endocrine Society clinical practice guideline. JCEM. 2010; 96(7):1911-30. PATIENT NOT FASTINGP ERFORMED BY: [employer]6370 [facility]dayAt[facility] [id number] HEPATITIS C ANTIBODY (56013) Ordered By: Line Dancer on 06-01-2021 HCV Ab Signal/Cutoff IA [Rel units/Vol] {ratio} Normal 0.0-0.9 [facility]; [facility] Work Phone: Comment on above: Negative: < 0.8 Inde terminate: 0.8 - 0.9 Positive: > 0.9 . The CDC recommends that a positive HCV antibody result be followed up with a HCV Nucleic Acid Amplification test (644808). PATIENT NOT FASTINGP ERFORMED BY: [employer]6370 [facility]dayAt[facility] [id number] HGB A1C (48356)Ordered By: Allyn richardtem Hoop Coiling Machine Operator on 06-01-2021 HbA1c (Bld) [Mass fraction] 6.1 % Abnormal 4.8-5.6 [facility]; [facility] Work Phone: Comment on above: . Prediabetes: 5.7 - 6.4 Diabetes: >6.4 Glycemic control for adults with diabetes: <7.0 standing order every 3mo for one year 06/29/22; PATIENT NOT FASTINGPERFORMED BY: TAVIA Chavez Spryus[address] [facility] [place] [id number] VITAMIN B-12 (CYANOCOBALAMIN ) ([id number])Ordered By: Line Dancer on 06-01-2021 Cobalamin (Vitamin B12) [Mass/Vol] 288 pg/mL Normal 232-1245 [facility]; [facility] Work Phone: Comment on above: PATIENT NOT FASTINGP ERFORMED BY: TAVIA [facility] [place] [id number] CBC W/AUTO DIFF WBC (97533)O rdered By: Line Dancer on 05-29-2021 Basophils (Bld) [#/Vol] 0.1 10*3/uL Normal 0.0-0.2 [facility]; [facility] Work Phone: Comment on above: PATIENT WAS FASTINGP ERFORMED BY: [facility] Wrjvpa8236 [address] RoadDublin [place] [id number] Basophils/100 WBC (Bld) 1 % Normal [facility]; [facility] Work Phone: Comment on above: PATIENT WAS FASTINGP ERFORMED BY: [facility] Dicgzt1034 [address] RoadDublin [place] [id number] Eosinophils (Bld) [#/Vol] 0.2 10*3/uL Normal 0.0-0.4 [facility]; [facility] Work Phone: Comment on above: PATIENT WAS FASTINGP ERFORMED BY: [facility] Cbhshx4541 [address] RoadDublin [place] [id number] Eosinophils/100 WBC (Bld) 2 % Normal [facility]; [facility] Work Phone: Comment on above: PATIENT WAS FASTINGP ERFORMED BY: [facility] Lrdecj3757 [address] RoadDublin [place] [id number] Erythrocyte distribution width (RBC) [Ratio] 13.1 % Normal 11.7-15.4 [facility]; [facility] Work Phone: Comment on above: PATIENT WAS FASTINGP ERFORMED BY: TAVIA [facility] Ytqolk8811 [address] RoadDublin [place] [id number] Hematocrit (Bld) [Volume fraction] 44.8 % Normal 34.0-46.6 [facility]; [facility] Work Phone: Comment on above: PATIENT WAS FASTINGP ERFORMED BY: CB [facility] Zonnfs4152 [address] Roadblin [place] [id number] Hemoglobin (Bld) [Mass/Vol] 14.8 g/dL Normal 11.1-15.9 [facility]; [facility] Work Phone: Comment on above: PATIENT WAS FASTINGP ERFORMED BY: [facility] Eizzvd6225 [address] RoadMartin General Hospitalin [place] [id number] Immature granulocytes (Bld) [#/Vol] 0.0 10*3/uL Normal 0.0-0.1 [facility]; [facility] Work Phone: Comment on above: PATIENT WAS FASTINGP ERFORMED BY: [facility] Jmaeto3681 [address] RoadDuin [place] [id number] Immature granulocytes/100 WBC (Bld) 1 % Normal [facility]; [facility] Work Phone: Comment on above: PATIENT WAS FASTINGP ERFORMED BY: [facility] Dduori[address] [facility] [place] [id number] Lymphocytes (Bld) [#/Vol] 1.1 10*3/uL Normal 0.7-3.1 [facility]; [facility] Work Phone: Comment on above: PATIENT WAS FASTINGP ERFORMED BY: [facility] Topxpz6477 [address] RoadDublin [place] [id number] Lymphocytes/100 WBC (Bld) 12 % Normal [facility]; [facility] Work Phone: Comment on above: PATIENT WAS FASTINGP ERFORMED BY: CB [facility] Qgbyif5961 [address] RoadDublin [place] [id number] MCH (RBC) [Entitic mass] 29.7 pg Normal 26.6-33.0 [facility]; [facility] Work Phone: Comment on above: PATIENT WAS FASTINGP ERFORMED BY: TAVIA Labcojessica ThompsonYrnflw2638 [address] RoadDublin [place] [id number] MCHC (RBC) [Mass/Vol] 33.0 g/dL Normal 31.5-35.7 [facility]; [facility] Work Phone: Comment on above: PATIENT WAS FASTINGP ERFORMED BY: CB [facility] Nvxlpl0026 [address] RoadDublin [place] [id number] MCV (RBC) [Entitic vol] 90 fL Normal 79-97 [facility]; [facility] Work Phone: Comment on above: PATIENT WAS FASTINGP ERFORMED BY: TAVIA Laberick VanBayrbx5628 [address] RoadDublin [place] [id number] Monocytes (Bld) [#/Vol] 0.5 10*3/uL Normal 0.1-0.9 [facility]; [facility] Work Phone: Comment on above: PATIENT WAS FASTINGP ERFORMED BY: TAVIA [facility] Alcdmt6984 [address] RoadDublin [place] [id number] Monocytes/100 WBC (Bld) 6 % Normal [facility]; [facility] Work Phone: Comment on above: PATIENT WAS FASTINGP ERFORMED BY: TAVIA [facility] Uyjeou8482 [address] RoadDublin [place] [id number] Neutrophils (Bld) [#/Vol] 6.7 10*3/uL Normal 1.4-7.0 [facility]; [facility] Work Phone: Comment on above: PATIENT WAS FASTINGP ERFORMED BY: CB [facility] Bkjzqt5076 [address] RoadDublin [place] [id number] Neutrophils/100 WBC (Bld) 78 % Normal [facility]; [facility] Work Phone: Comment on above: PATIENT WAS FASTINGP ERFORMED BY: CB [facility] Iofatn1286 [address] RoadDublin [place] [id number] Platelets (Bld) [#/Vol] 344 10*3/uL Normal 150-450 [facility]; [facility] Work Phone: Comment on above: PATIENT WAS FASTINGP ERFORMED BY: TAVIA Lucero Thompson[address] RoadFilippoblin [place] [id number] RBC (Bld) [#/Vol] 4.98 10*6/uL Normal 3.77-5.28 [facility]; [facility] Work Phone: Comment on above: PATIENT WAS FASTINGP ERFORMED BY: TAVIA Lucero Thompson[address] [place] [id number] WBC (Bld) [#/Vol] 8.5 10*3/uL Normal 3.4-10.8 [facility]; [facility] Work Phone: Comment on above: PATIENT WAS FASTINGP ERFORMED BY: TAVIA Chavezjessica Aopeyg[address] [facility]in [place] [id number] LIPID PANEL (56007)Ordered B y: Line Dancer on 05-29-2021 Cholesterol [Mass/Vol] 218 mg/dL Abnormal 100-199 [facility]; [facility] Work Phone: Comment on above: PATIENT WAS FASTINGP ERFORMED BY: TAVIA Chavezjessica Loqwga[address] [facility]in [place] [id number] Cholesterol in HDL [Mass/Vol] 70 mg/dL Normal [facility]; [facility] Work Phone: Comment on above: PATIENT WAS FASTINGP ERFORMED BY: TAVIA Chavezjessica Axqjjt[address] [facility]in [place] [id number] Triglyceride [Mass/Vol] 87 mg/dL Normal 0-149 [facility]; [facility] Work Phone: Comment on above: PATIENT WAS FASTINGP ERFORMED BY: TAVIA Laberick Dqppbf[address] [facility] HospitalDublin [place] [id number] LIPID PANEL (69540) 15 mg/dL Normal 5-40 [facility]erens[facility]; [facility] Work Phone: Comment on above: PATIENT WAS FASTINGP ERFORMED BY: TAVIA Laberick Hkkgmn9050 [facility] [id number] LIPID PANEL (18953) 133 mg/dL Abnormal 0-99 [facility]erens[facility]; [facility] Work Phone: Comment on above: PATIENT WAS FASTINGP ERFORMED BY: [facility] Ihopye5687 [facility] [id number] LIPID PANEL (39678) 1.9 {ratio} Normal 0.0-3.2 [facility]; [facility] Work Phone: Comment on above: LDL/HDL Ratio Men Wo men 1/2 Avg.Risk 1.0 1.5 Avg.Risk 3.6 3.2 2X Avg.Risk 6.2 5.0 3X Avg.Risk 8.0 6.1 PATIENT WAS FASTINGP ERFORMED BY: [facility]6[address] [facility] [id number] METABOLIC PANEL, COMPREHENSI VE (97101)Ordered By: Line Dancer on 05-29-2021 Albumin [Mass/Vol] 4.4 g/dL Normal 3.8-4.9 [facility]; [facility] Work Phone: Comment on above: PATIENT WAS FASTINGP ERFORMED BY: [facility]6[address] [facility] [id number] Albumin/Globulin [Mass ratio] 2.0 {ratio} Normal 1.2-2.2 [facility]; [facility] Work Phone: Comment on above: PATIENT WAS FASTINGP ERFORMED BY: [facility]6[address] [facility] [id number] ALP [Catalytic activity/Vol] 123 U/L Abnormal 44-121 [facility]; [facility] Work Phone: Comment on above: Please note refere nce interval change PATIENT WAS FASTINGP ERFORMED BY: [facility]6[address] [facility] [id number] ALT [Catalytic activity/Vol] 21 U/L Normal 0-32 [facility]; [facility] Work Phone: Comment on above: PATIENT WAS FASTINGP ERFORMED BY: Labco Rowfog4723 [address] RoadDublin [place] [id number] AST [Catalytic activity/Vol] 12 U/L Normal 0-40 [facility]; [facility] Work Phone: Comment on above: PATIENT WAS FASTINGP ERFORMED BY: [facility] Cyafvl1548 [address] RoadDublin [place] [id number] Bilirubin [Mass/Vol] mg/dL Normal 0.0-1.2 Comp rehensive Internal Medicine; [facility] Work Phone: Comment on above: PATIENT WAS FASTINGP ERFORMED BY: [facility] Qxcahd8920 [address] RoadDublin [place] [id number] Calcium [Mass/Vol] 9.1 mg/dL Normal 8.7-10.2 [facility] Internal [facility]; [facility] Work Phone: Comment on above: PATIENT WAS FASTINGP ERFORMED BY: [facility] Mjazvx5660 [address] RoadDublin [place] [id number] Chloride [Moles/Vol] 105 mmol/L Normal 96-106 [facility]; [facility] Work Phone: Comment on above: PATIENT WAS FASTINGP ERFORMED BY: Lab[facility] Zqzqpn6086 [address] RoadDublin [place] [id number] CO2 [Moles/Vol] 24 mmol/L Normal 20-29 [facility] Internal Medicine; [facility] Work Phone: Comment on above: PATIENT WAS FASTINGP ERFORMED BY: Lab[facility] Eadjrm8103 [address] RoadDublin [place] [id number] Creatinine [Mass/Vol] 0.90 mg/dL Normal 0.57-1.00 [facility]; [facility] Work Phone: Comment on above: PATIENT WAS FASTINGP ERFORMED BY: [facility] Efzbxs9506 [address] RoadDublin [place] [id number] GFR/1.73 sq M.predicted among blacks CKD-EPI (S/P/Bld) [Vol rate/Area] 82 mL/min/1.73 Normal [facility]; [facility] Work Phone: Comment on above: In accordance with recommendations from the NKF-ASN Task force, [facility] is in the process of updating its eGFR calculation to the 2020 CKD-EPI creatinine equation that estimates kidney function without a race variable. PATIENT WAS FASTINGP ERFORMED BY: TAVIA Vanlin6[address] [facility] [id number] GFR/1.73 sq M.predicted among non-blacks CKD-EPI (S/P/Bld) [Vol rate/Area] 71 mL/min/1.73 Normal [facility]; [facility] Work Phone: Comment on above: PATIENT WAS FASTINGP ERFORMED BY: TAVIA Thompson6[address] [facility] [id number] Globulin (S) [Mass/Vol] 2.2 g/dL Normal 1.5-4.5 [facility]; [facility] Work Phone: Comment on above: PATIENT WAS FASTINGP ERFORMED BY: TAVIA Vanlin6370 [facility] [id number] Glucose [Mass/Vol] 96 mg/dL Normal 65-99 [facility]; [facility] Work Phone: Comment on above: PATIENT WAS FASTINGP ERFORMED BY: TAVIA Byrne Fhazdz9008 [facility] [id number] Potassium [Moles/Vol] 4.4 mmol/L Normal 3.5-5.2 [facility]; [facility] Work Phone: Comment on above: PATIENT WAS FASTINGP ERFORMED BY: TAVIA Byrne Wcdshx4577 [facility] [id number] Protein [Mass/Vol] 6.6 g/dL Normal 6.0-8.5 [facility] Internal [facility]; [facility] Work Phone: Comment on above: PATIENT WAS FASTINGP ERFORMED BY: Chavez Qudaca5310 [facility] [id number] Sodium [Moles/Vol] 143 mmol/L Normal 134-144 [facility] Internal Medicine; [facility] Work Phone: Comment on above: PATIENT WAS FASTINGP ERFORMED BY: TAVIA [facility] Nvgfkc4106 [address] RoadDublin [place] [id number] Urea nitrogen [Mass/Vol] 16 mg/dL Normal 6-24 [facility]; [facility] Work Phone: Comment on above: PATIENT WAS FASTINGP ERFORMED BY: CB [facility] Mcbjuu4569 [address] RoadDublin [place] [id number] Urea nitrogen/Creatinine [Mass ratio] 18 mg/mg Normal 9-23 [facility]; [facility] Work Phone: Comment on above: PATIENT WAS FASTINGP ERFORMED BY: TAVIA [facility] Gaxrob5310 [address] RoadDublin [place] [id number] MICROALBUMINOrdered By: RoomiePics Hoop Coiling Machine Operator on 05-29-2021 Albumin DL <= 20 mg/L (U) [Mass/Vol] mg/dL Normal Comprehensiv e Internal Medicine; [facility] Work Phone: Comment on above: PATIENT WAS FASTINGP ERFORMED BY: TAVIA [facility] Hpernc9872 [address] RoadDublin [place] [id number] Albumin/Creatinine (U) [Mass ratio] <4 Normal 0-29 [facility]; [facility] Work Phone: Comment on above: Normal: 0 - 29 Moder ately increased: 30 - 300 Severely increased: >300 PATIENT WAS FASTINGP ERFORMED BY: TAVIA [facility] Lbngij6605 [address] RoadDublin [place] [id number] Creatinine (U) [Mass/Vol] 78.3 mg/dL Normal [facility]; [facility] Work Phone: Comment on above: PATIENT WAS FASTINGP ERFORMED BY: TAVIA [facility] Dbgsya0173 [address] RoadDublin [place] [id number] TSH ([id number])Ordered By: Poacht App m Hoop Coiling Machine Operator on 05-29-2021 TSH Qn 1.750 {uIU/mL} Normal 0.450-4.50 0 [facility]; [facility] Work Phone: Comment on above: PATIENT WAS FASTINGP ERFORMED BY: TAVIA Vanlin6[address] RoadDublin [place] [id number] URINALYSIS, W/ MICRO ([id number]) Ordered By: Line Dancer on 05-29-2021 Appearance (U) Cloudy Abnormal Comprehens william Internal Medicine; [facility] Work Phone: Comment on above: PATIENT WAS FASTINGP ERFORMED BY: TAVIA Vanlin6[address] RoadDublin [place] [id number] Bilirubin Ql (U) Negative Normal Comprehe nsive Internal Medicine; [facility] Work Phone: Comment on above: PATIENT WAS FASTINGP ERFORMED BY: TAVIA Vanlin6[address]Dublin [place] [id number] Color (U) Yellow Normal [facility]; [facility] Work Phone: Comment on above: PATIENT WAS FASTINGP ERFORMED BY: TAVIA Thompson6[address]Dublin [place] [id number] Glucose Ql (U) Negative Normal Comprehens william [facility]; [facility] Work Phone: Comment on above: PATIENT WAS FASTINGP ERFORMED BY: TAVIA Vanlin6[address]Dublin [place] [id number] Hemoglobin Ql (U) Negative Normal Compreh ensive Internal Medicine; [facility] Work Phone: Comment on above: PATIENT WAS FASTINGP ERFORMED BY: TAVIA Vanlin[address]Dublin [place] [id number] Ketones Ql (U) Negative Normal Comprehens william [facility]; [facility] Work Phone: Comment on above: PATIENT WAS FASTINGP ERFORMED BY: TAVIA Vanlin6[address] RoadDublin [place] [id number] Leukocyte esterase Test strip Ql (U) 1+ Abnormal [facility]; [facility] Work Phone: Comment on above: PATIENT WAS FASTINGP ERFORMED BY: TAVIA Vanlin6[address] RoadDublin [place] [id number] Microscopic observation LM Nom (Urine sed) See below: Normal [facility]; [facility] Work Phone: Comment on above: Microscopic was cesario cated and was performed. PATIENT WAS FASTINGP ERFORMED BY: [facility] Lgurkd9321 [address] RoadMartin General Hospitalin [place] [id number] Nitrite Ql (U) Negative Normal Comprehens william Internal [facility]; [facility] Work Phone: Comment on above: PATIENT WAS FASTINGP ERFORMED BY: [facility] Cbwudl[address] [facility] [id number] pH (U) 7.0 [pH] Normal 5.0-7.5 [facility]; [facility] Work Phone: Comment on above: PATIENT WAS FASTINGP ERFORMED BY: [facility] Vzyohv7485 [address] [facility] [place] [id number] Protein Ql (U) Negative Normal Comprehens william Internal [facility]; [facility] Work Phone: Comment on above: PATIENT WAS FASTINGP ERFORMED BY: [facility]6370 [facility] [id number] Specific gravity (U) [Rel density] 1.019 1 Normal 1.005-1.03 0 [facility]; [facility] Work Phone: Comment on above: PATIENT WAS FASTINGP ERFORMED BY: [facility] Ieelrq5010 [facility] [id number] Urobilinogen (U) [Mass/Vol] 0.2 mg/dL Normal 0.2-1.0 [facility]; [facility] Work Phone: Comment on above: PATIENT WAS FASTINGP ERFORMED BY: [facility] Eaceua[address] [facility] [id number] HGB A1C ([id number])Ordered By: Allyn ystem Hoop Coiling Machine Operator on 01-23-2021 HbA1c (Bld) [Mass fraction] 5.9 % Abnormal 4.8-5.6 [facility]; [facility] Work Phone: Comment on above: . Prediabetes: 5.7 - 6.4 Diabetes: >6.4 Glycemic control for adults with diabetes: <7.0 PATIENT NOT FASTINGP ERFORMED BY: TAVIA [facility] Uropra6944 [facility] [id number] Tk 11-17-2020 CNOV Office Visit (AGGHWB ) -- FOSTERMARGOT Mert ([id number]) 1965 F Date Time Provider Department 11/17/20 8:30 AM ALEXANDER WATERS AGGHWB During your visit today, we recorded the following information about you: Pulse Blood pressure Weight 95/minute 118/78 78 kg Alexander Waters MD 11/17/2020 9:11 AM Signed Alexander Waters M.D. Colon AND Rectal Surgery [address] [facility], [address] [place] [address] SUBJECTIVE Margot Mert Foster is a 55 year old White female S/p fistulotomy for anal fistula HPI He is generally feeling well still having a small amount of curtis drainage on the pad she wears, but denies any issues with incontinence. Pain is improving slowly. Review of Systems Constitutional: Negative for chills, fever and weight loss. HENT: Negative for congestion, ear pain, hearing loss, sinus pain and sore throat. Eyes: Negative for blurred vision and double vision. Respiratory: Negative for cough, shortness of breath and wheezing. Cardiovascular: Negative for chest pain, palpitations and leg swelling. Gastrointestinal: Negative for abdominal pain, constipation, diarrhea, heartburn, nausea and vomiting. Genitourinary: Negative for dysuria, frequency and urgency. Musculoskeletal: Positive for back pain, joint pain and neck pain. Skin: Negative for itching and rash. Neurological: Negative for dizziness, weakness and headaches. Endo/Heme/Allergies: Negative for environmental allergies. Does not bruise/bleed easily. Psychiatric/Behavioral: Negative for depression and memory loss. The patient is not nervous/anxious and does not have insomnia. PAST MEDICAL HISTORY Diagnosis Date - Anxiety and depression - Chronic low back pain - COPD (chronic obstructive pulmonary disease) (HCC) Mild, no treatment - Elevated cholesterol - Essential tremor - OAB (overactive bladder) - Palpitations Sees cardiology, no treatment needed - PONV (postoperative nausea and vomiting) - Prediabetes PAST SURGICAL HISTORY Procedure Laterality Date - LAMINECTOMY,LUMBAR 2004 - PAST SURGICAL HISTORY OF 2011 cervical fusion C6-C7 - PAST SURGICAL HISTORY OF Bilateral great toe fusion - PLACEMENT OF SETON 10/19/2020 Dr. Waters - REVISE MEDIAN N/CARPAL TUNNEL SURG Bilateral 2005 - SURGICAL DISCECTOMY, WITH/WITHOUT IMPLANT 2012 L4-L5 - VAGINAL HYSTERECTOMY 1998 Social History Tobacco Use - Smoking status: Current Every Day Smoker Packs/day: 0.50 Years: 1.00 Pack years: 0.50 Types: Cigarettes - Smokeless tobacco: Never Used - Tobacco comment: less than a pack a day Vaping Use - Vaping Use: current everyday user - Substances: Nicotine, Flavoring - Devices: Pre-filled or refillable cartridge Substance Use Topics - Alcohol use: Not Currently - Drug use: Never FAMILY HISTORY Problem Relation Age of Onset - Diabetes Maternal Grandmother - Heart Maternal Grandmother - Glaucoma No Family History - Detached Retina No Family History - Macular Degen No Family History - Blindness No Family History The ROS, medical, surgical, family, and social history were reviewed by Alexander Waters MD ALLERGIES Allergen Reactions - Augmentin [Amoxicil* GI Upset - Nicotine Hives Nicotine patchs - Antifungal - Imidaz* Rash Patient states she is allergic to ALL anti-fungal agents Current Outpatient Medications Medication Sig - mirabegron (MYRBETRIQ ORAL) Take by mouth. - calcium carbonate (CALTRATE 600 ORAL) Take by mouth. - traZODone HCl 300 mg tablet Patient states she is taking 450 mg hs - clonazePAM (KLONOPIN) 0.5 mg tablet TAKE 1/2 TABLET BY MOUTH TWICE A DAY NEEDED - amitriptyline (ELAVIL) 50 mg tablet Take 50 mg by mouth daily at bedtime. - VRAYLAR 1.5 mg capsule Take 1.5 mg by mouth once daily. - DULoxetine (CYMBALTA) 60 mg capsule Take 60 mg by mouth once daily. - rosuvastatin (CRESTOR) 10 mg tablet Take 10 mg by mouth once daily. - tiZANidine HCl 4 mg capsule three times daily. - topiramate (TOPAMAX) 25 mg tablet Take 25 mg by mouth once daily. - primidone (MYSOLINE) 50 mg tablet TAKE 3 TABLETS BY MOUTH 3 TIMES A DAY - ezetimibe (ZETIA) 10 mg tablet (Patient not taking: Reported on 10/27/2020 ) - omeprazole (PRILOSEC) 20 mg capsule Take 20 mg by mouth once daily. (Patient not taking: Reported on 10/27/2020 ) - meloxicam (MOBIC) 7.5 mg tablet (Patient not taking: Reported on 10/27/2020 ) No current facility-administered medications for this visit. OBJECTIVE BP 118/78 (BP Site: Left Arm, BP Position: Sitting, BP Cuff Size: Large Adult) Pulse 95 Wt 78 kg (172 lb) BMI 25.40 kg/m? BMI 25.40 kg/(m2) Physical Exam Abdominal: General: There is no distension. Palpations: Abdomen is soft. Tenderness: There is no abdominal tenderness. Neurological: Mental Status: She is alert and oriented to person, place, and ti (more content not included)... Normal [facility] 11-14-2020 [facility] Telephone (AGGENS7) -- MARGOT HUTCHISON ([id number]) 1965 F Date Time Provider Department 11/14/20 ALEXANDER WATERS AGGENS7 During your visit today, we recorded the following information about you: Bobbi Iglesias MA 11/14/2020 4:19 PM Signed ----- Message from Alexander Waters MD sent at 11/14/2020 10:34 AM EDT ----- No unexpectedc findings noted on her pathology report. Alexander Waters MD November 14, 2020 10:34 AM Bobbi Iglesias MA 11/14/2020 4:20 PM Signed LVM for pt to return call. AUSTIN Carter MA 11/17/2020 11:04 AM Signed Pt was informed during POV today, 11/17/20. Bobbi Iglesias MA Allergies As of Date: 11/14/2020 Noted Allergy Reaction AUGMENTIN (AMOXICILLIN-POT CLAVUL*03/21/2020 8 - GI Upset NICOTINE 08/30/2020 4 - Hives Comments: Nicotine patchs ANTIFUNGAL - IMIDAZOLE 11/26/2017 2 - Rash Comments: Patient states she is allergic to ALL anti-fungal agents Date Reviewed: 11/09/2020 Reviewed by: Rabia Moyer RN - Fully Assessed Reason for Visit: Results [95] Cmt: Surgical pathology Prescriptions as of 11/14/2020 Sig: OXYCODONE-ACETAMINOPHEN 5 MG-* Take 1-2 tablets by mouth jesús* MYRBETRIQ ORAL Take by mouth. CALTRATE 600 ORAL Take by mouth. EZETIMIBE 10 MG TABLET Patient not taking: Reported on 10/27/2020 TRAZODONE 300 MG TABLET Patient states she is taking * OMEPRAZOLE 20 MG CAPSULE,STEPHANIA* Take 20 mg by mouth once lucho* Patient not taking: Reported on 10/27/2020 CLONAZEPAM 0.5 MG TABLET TAKE 1/2 TABLET BY MOUTH TWIC* AMITRIPTYLINE 50 MG TABLET Take 50 mg by mouth daily at * VRAYLAR 1.5 MG CAPSULE Take 1.5 mg by mouth once juan francisco* MELOXICAM 7.5 MG TABLET Patient not taking: Reported on 10/27/2020 DULOXETINE 60 MG CAPSULE,STEPHANIA* Take 60 mg by mouth once lucho* ROSUVASTATIN 10 MG TABLET Take 10 mg by mouth once lucho* TIZANIDINE 4 MG CAPSULE three times daily. TOPIRAMATE 25 MG TABLET Take 25 mg by mouth once lucho* PRIMIDONE 50 MG TABLET TAKE 3 TABLETS BY MOUTH 3 FANNY* Problem List As Of Date: 11/14/2020 (None) Encounter Status:Closed by BOBBI IGLESIAS on 11/17/20 [facility] ANES POSTPROC EVALon 021 ANES POSTPROC EVAL HNO ID: [id number] Author: Eduin Casas MD Service: Anesthesiology Author Type: Physician Type: Anesthesia Postprocedure Evaluation Filed: 11/09/2020 2:50 PM Note Text: POST ANESTHESIA EVALUATION NOTE : 1965 Procedure Summary Date: 11/09/20 Room / Location: [facility] Anesthesia Start: 1221 Anesthesia Stop: 1310 Procedures: EXAM UNDER ANESTHESIA RECTAL (N/A Anus) FISTULOTOMY ANAL SUBCUTANEOUS VS ENDORECTAL ADVANCEMENT FLAP (N/A Anus) Diagnosis: Anal fistula (Anal fistula [K60.3]) Surgeons: Alexander Waters MD Responsible Provider: Eduin Casas MD Anesthesia Type: general ASA Status: 2 Anesthesia Type: general Last vitals Vitals Value Taken Time BP 139/70 11/09/20 1357 Temp 36.6 ?C (97.9 ?F) 11/09/20 1306 HR SpO2 91 11/09/20 1406 Resp 18 11/09/20 1406 SpO2 100 % 11/09/20 1406 Post Anesthesia Patient Status Patient Evaluation: PACU. PACU/ICU Patient Condition: stable. Anticipated Disposition: phase 2 then home. Neurological Status: aware and responsive. Pulmonary Status: breathing comfortably on room air Airway Control: returned to baseline unsupported. Cardiovascular Status: stable. Pain Management: clinically adequate Postoperative Hydration: acceptable. Intraoperative Events: no significant anesthesia events Post Operative Nausea/Vomiting Status: no significant post operative nausea or vomiting Anesthetic Observations: Recommendation: continue current plan of care. No complications documented. SIGNATURE: Eduin Casas MD PATIENT NAME: Margot Hutchison DATE: November 09, 2020 TIME: 2:50 PM CSN: [id number] [facility] ANES PRE-OPon 11-09-2020 ANES PRE-OP HNO ID: [id number] Author: Eduin Casas MD Service: Anesthesiology Author Type: Physician Type: Anesthesia Preprocedure Evaluation Filed: 11/09/2020 11:09 AM Note Text: ANESTHESIOLOGY DAY OF SURGERY NOTE : 1965 Procedure(s) (LRB): EXAM UNDER ANESTHESIA RECTAL (N/A) FISTULOTOMY ANAL SUBCUTANEOUS VS ENDORECTAL ADVANCEMENT FLAP (N/A) Surgeon(s): Alexander Waters MD Estimated body mass index is 24.37 kg/m? as calculated from the following: Height as of this encounter: 175.3 cm (5' 9). Weight as of this encounter: 74.8 kg (165 lb). Most recent hematocrit and potassium results: Hematocrit 43.0 04/28/2013 Potassium 3.8 04/28/2013 Relevant Problems No relevant active problems I - PHYSICAL EVALUATION AIRWAY Patient intubated: No. Mallampati: II. TM distance: >3 FB. Neck ROM: full ROM without neurological symptoms. Mouth opening: adequate. DENTAL Dental findings: teeth intact. Additional exam findings: no II - ANESTHESIA PLAN ASA Score: 2 Anesthetic Plan: general Airway type: ETT Anesthetic plan additional comments: Slight sore throat with previous anesthetic - prone Mild PONV. The patient is a current smoker. NPO Status: adequate Monitoring plan: standard ASA. Postoperative analgesic plan: parenteral or oral opioids. Anesthetic Risks, Benefits, Alternatives, Personnel Discussed. Consent obtained from: patient.Patient / Surrogate agrees to blood products: Yes Significant changes in the patient condition since the History and Physical, not otherwise documented in primary service progress note: no. Potential Anesthesia issues that may suggest increased risk of complications or contraindication to planned procedure: none. Vitals Value Taken Time BP 125/60 11/09/20 1023 Pulse 94 11/09/20 1023 Resp 18 11/09/20 1023 Temp 37 ?C (98.6 ?F) 11/09/20 1023 SpO2 98 % 11/09/20 1023 Facility-Administered Medications as of 11/09/2020 Medication Dose Route Frequency - lidocaine 10 mg/mL (1 %) 1-2 mg injection (XYLOCAINE) 0.1-0.2 mL INTRADERMAL PRN - lactated ringers iv infusion 5-30 mL/hr INTRAVENOUS CONTINUOUS Outpatient Medications as of 11/09/2020 Medication Sig - oxyCODONE-acetaminophen (PERCOCET) 5-325 mg tablet Take 1-2 tablets by mouth. - mirabegron (MYRBETRIQ ORAL) Take by mouth. - calcium carbonate (CALTRATE 600 ORAL) Take by mouth. - traZODone HCl 300 mg tablet Patient states she is taking 450 mg hs - clonazePAM (KLONOPIN) 0.5 mg tablet TAKE 1/2 TABLET BY MOUTH TWICE A DAY NEEDED - amitriptyline (ELAVIL) 50 mg tablet Take 50 mg by mouth daily at bedtime. - VRAYLAR 1.5 mg capsule Take 1.5 mg by mouth once daily. - DULoxetine (CYMBALTA) 60 mg capsule Take 60 mg by mouth once daily. - rosuvastatin (CRESTOR) 10 mg tablet Take 10 mg by mouth once daily. - tiZANidine HCl 4 mg capsule three times daily. - topiramate (TOPAMAX) 25 mg tablet Take 25 mg by mouth once daily. - primidone (MYSOLINE) 50 mg tablet TAKE 3 TABLETS BY MOUTH 3 TIMES A DAY - ezetimibe (ZETIA) 10 mg tablet (Patient not taking: Reported on 10/27/2020 ) - omeprazole (PRILOSEC) 20 mg capsule Take 20 mg by mouth once daily. (Patient not taking: Reported on 10/27/2020 ) - meloxicam (MOBIC) 7.5 mg tablet (Patient not taking: Reported on 10/27/2020 ) I have interviewed and examined the patient. I have reviewed the medical record and/or the pre-anesthesia evaluation, pertinent labs, and test results. This contains updated information obtained within 48 hours of Surgery/Procedure. SIGNATURE: Eduin Casas MD PATIENT NAME: Margot Hutchison DATE: November 09, 2020 TIME: 10:52 AM CSN: [id number] [facility] OPERATIVE NOon 11-09-2020 OPERATIVE NO HNO ID: [id number] Author: Alexander Waters MD Service: Colorectal Author Type: Physician Type: Operative Report Filed: 11/09/2020 1:02 PM Note Text: DEPARTMENT OF SURGERY OPERATIVE NOTE Log ID: [id number] Surgery Date: 11/09/2020 Incision/Procedure Start Time: 12:38 PM Incision Close/Procedure End Time: 12:54 PM Surgeon(s) and Consulting Utility Forester(s): Surgeon(s) and Role: * Alexander Waters MD - Primary Preoperative Diagnosis: Anal fistula [K60.3] Postoperative Diagnosis: Same PROCEDURE AND ANESTHESIA TYPE: Procedure(s) and Anesthesia Type: * EXAM UNDER ANESTHESIA RECTAL - General * FISTULOTOMY ANAL low transsphincteric - General EBL: 5 mml OPERATIVE INDICATIONS: The patient is a 55 year old female with a history of anal fistula and presented to the office to discuss further intervention after she had a prior seton placement. A discussusion of the risks and benefits of surgery was undertaken, at the end of which the patient understood the benefits and risks, and desired to proceed. Findings: No palpable abscess, and the fistula seemed to contain mostly internal and a small amount of external sphincter. We perfrmed fistulotomy and marsupialization Description of Procedure: Patient was placed in prone . Timeout was completed x 2. The perinuem was prepped and draped in the usual fashion. Digital rectal exam showed good tone, and the seton in place in the left anterior perianal skin with some internal and seemingly minimal external sphincter involvement.. Anoscopy was completed, showing No other gross abnormalities We decided to proceed with fistulotomy. We began to open the skin overlying the seton, coming through skin then internal sphincter and a small amount of external sphincter. After we had fully opened the fistula, the sphincter tone was noted to still be strong. The fistula tract was curretted to healthy tissue. We used 3-0 chomic to marsupialize the wound edges down to the back of the fistula tract. A small part of the tract was sent off as specimen. After 4 marsupializing sutures were placed, we decided to complete the procedure. 30 cc of half percent marcaine with epinephrine was used in a perianal block. The scope was then removed. A sterile dressing was applied. All counts of sponges and instruments were correct x 2. The patient was taken to the recovery room in good condition. Alexander Waters MD November 09, 2020 12:58 PM Normal [facility] SURGICAL PATHOLOGYon 021 CASE REPORT Normal [facility] Comment on above: Order Comment: Speci men Type: TISSUE SPECIMEN Result Comment: Surg [facility] Pathology Report Case: [id number] Authorizing Provider: Alexander Waters MD Collected: 11/09/2020 12:43 PM Ordering Location: LAB EKG [facility] Received: 11/10/2020 10:17 AM Pathologist: Chiquis Ríos MD Specimen: FISTULA, FISTULA TRACT Performed By: #### S ####[facility] LABORATORYCLIA [id number] [place] [address] CLINICAL HISTORY ANAL FISTULA Normal [facility] Comment on above: Order Comment: Speci men Type: TISSUE SPECIMEN Performed By: #### S ####[facility] LABORATORYCLIA [id number] [place] [address] FINAL DIAGNOSIS Normal [facility] Comment on above: Order Comment: Speci men Type: TISSUE SPECIMEN Result Comment: Subm itted as (fistula tract), excision - Benign squamous epithelium with minimal inflammation and mild fibrosis. - Negative for dysplasia or malignancy. Performed By: #### S ####[facility] LABORATORYCLIA [id number] [place] [address] FINAL PERFORMING LAB Normal [facility] Comment on above: Order Comment: Speci men Type: TISSUE SPECIMEN Result Comment: Diag nostic interpretation performed at [facility], [address] [place] [address] CLIA# [id number] Prop Sawyer: David Parikh M.D. Performed By: #### S ####[facility] LABORATORYCLIA [id number] [place] [address] GROSS DESCRIPTION A. FISTULA. Normal [facility] Comment on above: Order Comment: Speci men Type: TISSUE SPECIMEN Result Comment: A. R eceived in formalin labeled fistula tract is a red???brown firm segment of tissue measuring 0.8 x 0.6 x 0.3 cm. The specimen is totally submitted in formalin in 1 cassette.Gross examination performed at [facility], [address], [facility] [address] KVB November 10, 2020 1:07 PM Performed By: #### S ####[facility] LABORATORYCLIA [id number] [place] [address] CNOVon 10-27-2020 CNOV Office Visit (AGGHWB ) -- MARGOT HUTCHISON ([id number]) 1965 F Date Time Provider Department 10/27/20 11:00 AM ALEXANDER WATERS During your visit today, we recorded the following information about you: Pulse Blood pressure Weight Height 97/minute 158/80 74.8 kg 1.753 m Alexander Waters MD 10/27/2020 11:31 AM Addendum Alexander Waters M.D. Colon AND Rectal Surgery [address] [facility], [address] [place] [address] SUBJECTIVE Margot Hutchison is a 55 year old White female status post anal skin tag removal and seton placement HPI She is generally feeling okay, mild to moderate pain well controlled with oral medication. She denies nausea or vomiting. Review of Systems Constitutional: Negative for chills, fever and weight loss. HENT: Negative for congestion, ear pain, hearing loss, sinus pain and sore throat. Eyes: Negative for blurred vision, double vision and pain. Respiratory: Negative for cough, shortness of breath and wheezing. Cardiovascular: Negative for chest pain, palpitations and leg swelling. Gastrointestinal: Negative for abdominal pain, constipation, diarrhea, heartburn, nausea and vomiting. Genitourinary: Negative for dysuria, frequency and urgency. Musculoskeletal: Negative for back pain, joint pain and neck pain. Skin: Negative for itching and rash. Neurological: Positive for weakness. Negative for dizziness and headaches. Endo/Heme/Allergies: Negative for environmental allergies. Does not bruise/bleed easily. Psychiatric/Behavioral: Negative for depression and memory loss. The patient is not nervous/anxious and does not have insomnia. PAST MEDICAL HISTORY Diagnosis Date - Anxiety and depression - Chronic low back pain - COPD (chronic obstructive pulmonary disease) (HCC) Mild, no treatment - Elevated cholesterol - Essential tremor - OAB (overactive bladder) - Palpitations Sees cardiology, no treatment needed - PONV (postoperative nausea and vomiting) - Prediabetes PAST SURGICAL HISTORY Procedure Laterality Date - LAMINECTOMY,LUMBAR 2004 - PAST SURGICAL HISTORY OF 2010 cervical fusion C6-C7 - PAST SURGICAL HISTORY OF Bilateral great toe fusion - PLACEMENT OF SETON 10/19/2020 Dr. Waters - REVISE MEDIAN N/CARPAL TUNNEL SURG Bilateral 2006 - SURGICAL DISCECTOMY, WITH/WITHOUT IMPLANT 2012 L4-L5 - VAGINAL HYSTERECTOMY 1998 Social History Tobacco Use - Smoking status: Current Every Day Smoker Packs/day: 0.50 Years: 1.00 Pack years: 0.50 Types: Cigarettes - Smokeless tobacco: Never Used - Tobacco comment: less than a pack a day Vaping Use - Vaping Use: current everyday user - Substances: Nicotine, Flavoring - Devices: Pre-filled or refillable cartridge Substance Use Topics - Alcohol use: Not Currently - Drug use: Never FAMILY HISTORY Problem Relation Age of Onset - Diabetes Maternal Grandmother - Heart Maternal Grandmother - Glaucoma No Family History - Detached Retina No Family History - Macular Degen No Family History - Blindness No Family History The ROS, medical, surgical, family, and social history were reviewed by Alexander Waters MD ALLERGIES Allergen Reactions - Augmentin [Amoxicil* GI Upset - Nicotine Hives Nicotine patchs - Antifungal - Imidaz* Rash Patient states she is allergic to ALL anti-fungal agents Current Outpatient Medications Medication Sig - mirabegron (MYRBETRIQ ORAL) Take by mouth. - calcium carbonate (CALTRATE 600 ORAL) Take by mouth. - traZODone HCl 300 mg tablet Patient states she is taking 450 mg hs - clonazePAM (KLONOPIN) 0.5 mg tablet TAKE 1/2 TABLET BY MOUTH TWICE A DAY NEEDED - amitriptyline (ELAVIL) 50 mg tablet Take 50 mg by mouth daily at bedtime. - VRAYLAR 1.5 mg capsule Take 1.5 mg by mouth once daily. - DULoxetine (CYMBALTA) 60 mg capsule Take 60 mg by mouth once daily. - rosuvastatin (CRESTOR) 10 mg tablet Take 10 mg by mouth once daily. - tiZANidine HCl 4 mg capsule three times daily. - topiramate (TOPAMAX) 25 mg tablet Take 25 mg by mouth once daily. - primidone (MYSOLINE) 50 mg tablet TAKE 3 TABLETS BY MOUTH 3 TIMES A DAY - ezetimibe (ZETIA) 10 mg tablet (Patient not taking: Reported on 10/27/2020 ) - omeprazole (PRILOSEC) 20 mg capsule Take 20 mg by mouth once daily. (Patient not taking: Reported on 10/27/2020 ) - meloxicam (MOBIC) 7.5 mg tablet (Patient not taking: Reported on 10/27/2020 ) No current facility-administered medications for this visit. OBJECTIVE BP 158/80 (BP Site: Left Arm, BP Position: Sitting, BP Cuff Size: Large Adult) Pulse 97 Ht 175.3 cm (5' 9) Wt 74.8 kg (165 lb) BMI 24.37 kg/m? BMI 24.37 kg/(m2) Physical Exam Abdominal: General: There is no distension. Palpations: Abdomen is soft. Tenderness: There is no abdominal tenderness. Neurological: Mental Status: She (more content not included)... [facility] MARG[facility]UTCH[facility] ([id number]) 1965 F Date Time Provider Department 10/25/20 ALEXANDER WATERS AGGENS7 During your visit today, we recorded the following information about you: Bobbi Iglesias MA 10/25/2020 1:38 PM Signed ----- Message from Alexander Waters MD sent at 10/25/2020 9:40 AM EDT ----- The skin tag which was removed at surgery had no precancerous changes or other surprise findings noted. Alexander Waters MD October 25, 2020 9:40 AM Bobbi Iglesias MA 10/25/2020 1:39 PM Signed LVM for pt to return call. AUSTIN Carter MA 10/30/2020 8:22 AM Signed Pt was informed during POV on 10/27/20. Bobbi Iglesias MA Allergies As of Date: 10/25/2020 Noted Allergy Reaction AUGMENTIN (AMOXICILLIN-POT CLAVUL*03/21/2020 8 - GI Upset NICOTINE 08/30/2020 4 - Hives Comments: Nicotine patchs ANTIFUNGAL - IMIDAZOLE 11/26/2017 2 - Rash Comments: Patient states she is allergic to ALL anti-fungal agents Date Reviewed: 10/19/2020 Reviewed by: Rabia (Rn) ASHLI Moyer - Fully Assessed Reason for Visit: Results [95] Cmt: Surgical pathology Prescriptions as of 10/25/2020 Sig: MYRBETRIQ ORAL Take by mouth. CALTRATE 600 ORAL Take by mouth. EZETIMIBE 10 MG TABLET Patient not taking: Reported on 10/27/2020 TRAZODONE 300 MG TABLET Patient states she is taking * OMEPRAZOLE 20 MG CAPSULE,STEPHANIA* Take 20 mg by mouth once lucho* Patient not taking: Reported on 10/27/2020 CLONAZEPAM 0.5 MG TABLET TAKE 1/2 TABLET BY MOUTH TWIC* AMITRIPTYLINE 50 MG TABLET Take 50 mg by mouth daily at * VRAYLAR 1.5 MG CAPSULE Take 1.5 mg by mouth once juan fracnisco* MELOXICAM 7.5 MG TABLET Patient not taking: Reported on 10/27/2020 DULOXETINE 60 MG CAPSULE,STEPHANIA* Take 60 mg by mouth once lucho* ROSUVASTATIN 10 MG TABLET Take 10 mg by mouth once lucho* TIZANIDINE 4 MG CAPSULE three times daily. TOPIRAMATE 25 MG TABLET Take 25 mg by mouth once lucho* PRIMIDONE 50 MG TABLET TAKE 3 TABLETS BY MOUTH 3 FANNY* Problem List As Of Date: 10/25/2020 (None) Encounter Status:Closed by BOBBI IGLESIAS on 10/30/20 [facility] MARGOT HUTCHISON ([id number]) 1965 F Date Time Provider Department 10/20/20 ALEXANDER WATERS7 During your visit today, we recorded the following information about you: Corine Jackson 10/20/2020 11:25 AM Signed Pt called and said you wanted to set up another procedure in 6 weeks. Please advise. Corine Jackson Allergies As of Date: 10/20/2020 Noted Allergy Reaction AUGMENTIN (AMOXICILLIN-POT CLAVUL*03/21/2020 8 - GI Upset NICOTINE 08/30/2020 4 - Hives Comments: Nicotine patchs ANTIFUNGAL - IMIDAZOLE 11/26/2017 2 - Rash Comments: Patient states she is allergic to ALL anti-fungal agents Date Reviewed: 10/19/2020 Reviewed by: Rabia (Rn) ASHLI Moyer - Fully Assessed Reason for Visit: Appointment [186] Prescriptions as of 10/20/2020 Sig: MYRBETRIQ ORAL Take by mouth. CALTRATE 600 ORAL Take by mouth. OXYCODONE-ACETAMINOPHEN 5 MG-* Take 1-2 tablets by mouth jesús* EZETIMIBE 10 MG TABLET TRAZODONE 300 MG TABLET Patient states she is taking * OMEPRAZOLE 20 MG CAPSULE,STEPHANIA* Take 20 mg by mouth once lucho* CLONAZEPAM 0.5 MG TABLET TAKE 1/2 TABLET BY MOUTH TWIC* AMITRIPTYLINE 50 MG TABLET Take 50 mg by mouth daily at * VRAYLAR 1.5 MG CAPSULE Take 1.5 mg by mouth once juan francisco* MELOXICAM 7.5 MG TABLET DULOXETINE 60 MG CAPSULE,STEPHANIA* Take 60 mg by mouth once lucho* ROSUVASTATIN 10 MG TABLET Take 10 mg by mouth once lucho* TIZANIDINE 4 MG CAPSULE TAKE ONE CAPSULE BY MOUTH UP * TOPIRAMATE 25 MG TABLET Take 25 mg by mouth once lucho* PRIMIDONE 50 MG TABLET TAKE 3 TABLETS BY MOUTH 3 FANNY* Problem List As Of Date: 10/20/2020 (None) Encounter Status:Closed by CORINE JACKSON on 10/23/20 [facility] ANES POSTPROC EVALon 021 ANES POSTPROC EVAL HNO ID: [id number] Author: Rachel Arroyo Service: Anesthesiology Author Type: Physician Type: Anesthesia Postprocedure Evaluation Filed: 10/19/2020 3:54 PM Note Text: POST ANESTHESIA EVALUATION NOTE : 1965 Procedure Summary Date: 10/19/20 Room / Location: [facility] / [facility] Anesthesia Start: 1328 Anesthesia Stop: 142 Procedures: EXAM UNDER ANESTHESIA RECTAL (N/A Anus) SETON placement (N/A Anus) EXCISION ANAL TAG SINGLE (N/A Anus) Diagnosis: Anal fistula Anal skin tag (Anal fistula [K60.3]) (Anal skin tag [K64.4]) Surgeons: Alexander Waters Responsible Provider: Rachel Arroyo Anesthesia Type: general ASA Status: 2 Anesthesia Type: general Last vitals Vitals Value Taken Time BP 151/76 10/19/20 1505 Temp 36.2 ?C (97.2 ?F) 10/19/20 1425 HR SpO2 95 10/19/20 1505 Resp 16 10/19/20 1505 SpO2 98 % 10/19/20 1505 Post Anesthesia Patient Status Neurological Status: aware and responsive. Pulmonary Status: breathing comfortably on room air Airway Control: returned to baseline unsupported. Cardiovascular Status: stable. Pain Management: clinically adequate Postoperative Hydration: acceptable. Intraoperative Events: no significant anesthesia events No complications documented. SIGNATURE: Rachel Arroyo MD PATIENT NAME: Margot Hutchison DATE: October 19, 2020 TIME: 3:54 PM CSN: [id number] [facility] ANES PRE-OPon 10-19-2020 ANES PRE-OP HNO ID: [id number] Author: Rachel Arroyo Service: Anesthesiology Author Type: Physician Type: Anesthesia Preprocedure Evaluation Filed: 10/19/2020 12:21 PM Note Text: ANESTHESIOLOGY DAY OF SURGERY NOTE : 1965 Procedure(s) (LRB): EXAM UNDER ANESTHESIA RECTAL (N/A) FISTULOTOMY VS SETON (N/A) EXCISION ANAL TAG SINGLE (N/A) Surgeon(s): Alexander Waters Estimated body mass index is 23.63 kg/m? as calculated from the following: Height as of this encounter: 175.3 cm (5' 9). Weight as of this encounter: 72.6 kg (160 lb). Most recent hematocrit and potassium results: Hematocrit 43.0 04/28/2013 Potassium 3.8 04/28/2013 55 yo F hx tobacco abuse, Pre-DM, PONV Relevant Problems ANESTHESIA (-) History of anesthesia complications I - PHYSICAL EVALUATION AIRWAY Patient intubated: No. Mallampati: II. TM distance: >3 FB. Neck ROM: full ROM without neurological symptoms. Mouth opening: adequate. Thick neck: no DENTAL Dental findings: teeth intact. II - ANESTHESIA PLAN ASA Score: 2 Anesthetic Plan: general Anesthetic plan additional comments: GA vs MAC. Will discuss with surgeon. The patient is not a current smoker. NPO Status: adequate Monitoring plan: standard ASA. Postoperative analgesic plan: parenteral or oral opioids. Anesthetic Risks, Benefits, Alternatives, Personnel Discussed. Consent obtained from: patient.Patient / Surrogate agrees to blood products: blood products not planned Significant changes in the patient condition since the History and Physical, not otherwise documented in primary service progress note: no. Potential Anesthesia issues that may suggest increased risk of complications or contraindication to planned procedure: none. Vitals Value Taken Time BP 125/72 10/19/20 1206 Pulse 81 10/19/20 1206 Resp 18 10/19/20 1206 Temp 36.8 ?C (98.2 ?F) 10/19/20 1206 SpO2 96 % 10/19/20 1206 Facility-Administered Medications as of 10/19/2020 Medication Dose Route Frequency - lidocaine 10 mg/mL (1 %) 1-2 mg injection (XYLOCAINE) 0.1-0.2 mL INTRADERMAL PRN - lactated ringers iv infusion 5-30 mL/hr INTRAVENOUS CONTINUOUS Outpatient Medications as of 10/19/2020 Medication Sig - mirabegron (MYRBETRIQ ORAL) Take by mouth. - calcium carbonate (CALTRATE 600 ORAL) Take by mouth. - traZODone HCl 300 mg tablet - clonazePAM (KLONOPIN) 0.5 mg tablet TAKE 1/2 TABLET BY MOUTH TWICE A DAY NEEDED - amitriptyline (ELAVIL) 50 mg tablet - VRAYLAR 1.5 mg capsule Take 1.5 mg by mouth once daily. - DULoxetine (CYMBALTA) 60 mg capsule - oxyCODONE-acetaminophen (PERCOCET) 5-325 mg tablet - rosuvastatin (CRESTOR) 10 mg tablet - tiZANidine HCl 4 mg capsule TAKE ONE CAPSULE BY MOUTH UP TO TWICE DAILY NEEDED FOR SPASMS - topiramate (TOPAMAX) 25 mg tablet - primidone (MYSOLINE) 50 mg tablet TAKE 3 TABLETS BY MOUTH 3 TIMES A DAY - ezetimibe (ZETIA) 10 mg tablet - omeprazole (PRILOSEC) 20 mg capsule Take 20 mg by mouth once daily. - meloxicam (MOBIC) 7.5 mg tablet I have interviewed and examined the patient. I have reviewed the medical record and/or the pre-anesthesia evaluation, pertinent labs, and test results. This contains updated information obtained within 48 hours of Surgery/Procedure. SIGNATURE: Rachel Arroyo MD PATIENT NAME: Margot Hutchison DATE: October 19, 2020 TIME: 12:20 PM CSN: [id number] [facility] HISTORY PHYSICALon HISTORY PHYSICAL HNO ID: [id number] Author: Dorita Martines (Pa) Service: Anesthesiology Author Type: Physician Consulting Utility Forester Type: HANDP Filed: 10/19/2020 1:10 PM Note Text: HISTORY AND PHYSICAL EXAMINATION Margot Hutchison 1965 SERVICE DATE: 10/19/2020 SERVICE TIME: 12:32 PM PRIMARY CARE PHYSICIAN: Juan Chan DO SURGEON: Surgeon(s) and Role: * Alexander Waters - Primary ANESTHESIA: General DIAGNOSIS: Anal fistula [K60.3] Anal skin tag [K64.4] PROCEDURE: Procedure(s): EXAM UNDER ANESTHESIA RECTAL (N/A) FISTULOTOMY VS SETON (N/A) EXCISION ANAL TAG SINGLE (N/A) Subjective CHIEF COMPLAINT: I am here for a abscess HPI: This is a 55 year old female who presents for an exam under anesthesia and a fistula repair. The patient states that she developed an abscess a year ago that was lanced, but states it has re-occurred with intermittent inflammation, purulent drainage, and painful bowel movements. She denies any fever or chills, no recent increase in pain or discomfort. METS: Climb a flight of stairs or walk up a hill (5.50 METs) FUNCTIONAL STATUS: Independent PAST MEDICAL HISTORY Diagnosis Date - Elevated cholesterol - PONV (postoperative nausea and vomiting) - Prediabetes PAST SURGICAL HISTORY Procedure Laterality Date - LAMINECTOMY,LUMBAR 2004 - PAST SURGICAL HISTORY OF 2011 cervical fusion C6-C7 - PAST SURGICAL HISTORY OF Bilateral great toe fusion - REVISE MEDIAN N/CARPAL TUNNEL SURG Bilateral 2005 - SURGICAL DISCECTOMY, WITH/WITHOUT IMPLANT 2012 L4-L5 - VAGINAL HYSTERECTOMY 1998 FAMILY HISTORY Problem Relation Age of Onset - Diabetes Maternal Grandmother - Heart Maternal Grandmother - Glaucoma No Family History - Detached Retina No Family History - Macular Degen No Family History - Blindness No Family History Social History Tobacco Use - Smoking status: Current Every Day Smoker Packs/day: 0.50 Years: 1.00 Pack years: 0.50 Types: Cigarettes - Smokeless tobacco: Never Used - Tobacco comment: less than a pack a day Vaping Use - Vaping Use: current everyday user - Substances: Nicotine, Flavoring - Devices: Pre-filled or refillable cartridge Substance Use Topics - Alcohol use: Not Currently - Drug use: Never Prior to Admission medications as of 10/19/20 1205 Medication Sig Last Dose Taking mirabegron (MYRBETRIQ ORAL) Take by mouth. 10/19/2020 at 0900 Yes calcium carbonate (CALTRATE 600 ORAL) Take by mouth. Yes traZODone HCl 300 mg tablet Yes clonazePAM (KLONOPIN) 0.5 mg tablet TAKE 1/2 TABLET BY MOUTH TWICE A DAY NEEDED Yes amitriptyline (ELAVIL) 50 mg tablet Yes VRAYLAR 1.5 mg capsule Take 1.5 mg by mouth once daily. 10/19/2020 at 0900 Yes DULoxetine (CYMBALTA) 60 mg capsule Yes oxyCODONE-acetaminophen (PERCOCET) 5-325 mg tablet Yes rosuvastatin (CRESTOR) 10 mg tablet Yes tiZANidine HCl 4 mg capsule TAKE ONE CAPSULE BY MOUTH UP TO TWICE DAILY NEEDED FOR SPASMS Yes topiramate (TOPAMAX) 25 mg tablet Yes primidone (MYSOLINE) 50 mg tablet TAKE 3 TABLETS BY MOUTH 3 TIMES A DAY Yes ezetimibe (ZETIA) 10 mg tablet omeprazole (PRILOSEC) 20 mg capsule Take 20 mg by mouth once daily. 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 MENTAL STATUS: alert, oriented to person, place and time HEENT: Normocephalic/atraumatic, no lymphadenopathy, thyroid non-tender, without palpable masses/nodules or enlargement LUNGS: Lungs clear to auscultation, Good diaphragmatic excursion CARDIAC: Normal S1 and S2; no rubs, murmurs, or gallops ABDOMEN: Abdomen soft, non-tender, BS normal, No masses or organomegaly EXTREMITIES: Extremities normal, no deformities, edema, clubbing or skin discoloration. Good capillary refill., No ulcers Diagnostic tests reviewed for today's visit: Lab Value Units Date High Low HB No results within date range. HCT No results within date range. WBC No results wit (more content not included)... 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 A discussusion of the risks and benefits of surgery was undertaken, at the end of which the patient understood the benefits and risks, and desired to proceed. Findings: No palpable abscess, but we did find a fistula tract in the left anterior perianal skin and a skin tag at the anal verge in the same location. We cannulated the fistula tract after opening up part of the fistula tract externally. Once it was cannulated we noted that it seems to contain a fairly small amount of sphincter muscle, with the internal opening about jail down the anal canal. Still given the position in the anterior perianal skin we decided to proceed with the seton at this operation Description of Procedure: Patient was placed in prone . Timeout was completed x 2. The perinuem was prepped and draped in the usual fashion. Digital rectal exam showed a small area in the anterior anal canal of granulation tissue. Also notable on the external exam was left anterior sinus opening concerning for fistula and a skin tag at the anal verge anteriorly.. Anoscopy was completed, showing an internal opening we suspected would connect to the external sinus.. We tried probing and the external opening but it initially extended laterally from the whole creating a small tunnel about a centimeter in the subcutaneous tissue. We opened this with monopolar cautery and looked for an internal opening within this, but were not easily able to find it. Instead we used a retrograde technique and cannulated the internal opening and brought a fistula probe down toward the perianal skin and easily found a spot in the middle of this now opened external fistula opening which communicated. We palpated the sphincter muscle and noted that there was probably two thirds of the internal sphincter muscle above the fistula tract, so that I do not think it probably contains a large amount of external sphincter either. Still we decided given the anterior position that at this junction we would proceed with the seton placement. In the same radial position there was also an external skin tag about 8 mm in size which we discussed that she would like removed. We injected half percent Marcaine with epinephrine under the skin tag and and a perianal block as well as a bilateral perineal block for a total of 30 cc injected. We then removed the skin tag cutting it off flush and closing the skin at this location with a 3-0 chromic suture. Next we got a vessel loop through the fistula tract and circled it back on itself, securing this at 3 locations with a 0 silk suture. We cut off the excess from the seton. We performed anoscopy again and did not see any other gross abnormalities. The scope was then removed. A sterile dressing was applied. All counts of sponges and instruments were correct x 2. The patient was taken to the recovery room in good condition. Alexander Waters MD October 19, 2020 2:36 PM [facility] SURGICAL PATHOLOGYon 021 CASE REPORT [facility] Comment on above: Order Comment: Speci men Type: TISSUE SPECIMEN Result Comment: Surg ica Pathology Report Case: [id number] Authorizing Provider: Alexander Waters MD Collected: 10/19/2020 02:00 PM Ordering Location: LAB EKG [facility] Received: 10/20/2020 10:40 AM Pathologist: Chiquis Ríos MD Specimen: SKIN TAG, ANAL SKIN TAG Performed By: #### S ####[facility] LABORATORYCLIA [id number] [place] [address] CLINICAL HISTORY ANAL FISTULA, ANAL S KIN TAG [facility] Comment on above: Order Comment: Speci men Type: TISSUE SPECIMEN Performed By: #### S ####[facility] LABORATORYCLIA [id number] [place] [address] FINAL DIAGNOSIS Normal [facility] Comment on above: Order Comment: Speci men Type: TISSUE SPECIMEN Result Comment: Skin tag, anal, excision - Fibroepithelial polyp. Performed By: #### S ####[facility] LABORATORYCLIA [id number] [place] [address] FINAL PERFORMING LAB [facility] Comment on above: Order Comment: Speci men Type: TISSUE SPECIMEN Result Comment: Diag nostic interpretation performed at [facility], [address] [place] [address] CLIA# [id number] Prop Sawyer: David Parikh M.D. Performed By: #### S ####[facility] LABORATORYCLIA [id number] [place] [address] GROSS DESCRIPTION A. SKIN TAG. [facility] Comment on above: Order Comment: Speci men Type: TISSUE SPECIMEN Result Comment: Rece ived in formalin labeled anal skin tag is a pedunculated segment of lightly pigmented, wrinkled skin measuring 1 x 0.8 x 0.5 cm. A resection margin was identified and inked black. The specimen is trisected and totally submitted in one cassette. RSA 10/20/2020. Gross examination performed at [facility], [address] [place] [address] CLIA# [id number] Performed By: #### S ####[facility] LABORATORYCLIA [id number] [place] [address] HEPATIC FUNCTION PANEL (8007 6)Ordered By: Line Dancer on 09-08-2020 Albumin [Mass/Vol] 4.2 g/dL Normal 3.8-4.9 [facility]; [facility] Work Phone: Comment on above: PATIENT WAS FASTINGP ERFORMED BY: TAVIA [facility] [address]edrc[address] [place] [id number] ALP [Catalytic activity/Vol] 96 [iU]/L Normal 39-117 [facility]; [facility] Work Phone: Comment on above: PATIENT WAS FASTINGP ERFORMED BY: CB [facility] Ntqsud[address]Dublin [place] [id number] ALP [Catalytic activity/Vol] 96 U/L Normal 39-117 [facility]; [facility] Work Phone: Comment on above: PATIENT WAS FASTINGP ERFORMED BY: CB [facility] Ksafue[address]Dublin [place] [id number] ALT [Catalytic activity/Vol] 40 [iU]/L Abnormal 0-32 [facility]; [facility] Work Phone: Comment on above: PATIENT WAS FASTINGP ERFORMED BY: CB [facility] Ncuyzy[address]Dublin [place] [id number] ALT [Catalytic activity/Vol] 40 U/L Abnormal 0-32 [facility]; [facility] Work Phone: Comment on above: PATIENT WAS FASTINGP ERFORMED BY: CB [facility] Ycsyum[address]Dublin [place] [id number] AST [Catalytic activity/Vol] 21 [iU]/L Normal 0-40 [facility]; [facility] Work Phone: Comment on above: PATIENT WAS FASTINGP ERFORMED BY: CB [facility] Bgdwdr[address]Dublin [place] [id number] AST [Catalytic activity/Vol] 21 U/L Normal 0-40 [facility]; [facility] Work Phone: Comment on above: PATIENT WAS FASTINGP ERFORMED BY: CB [facility] Rzyvpf[address] [place] [id number] Bilirubin [Mass/Vol] mg/dL Normal 0.0-1.2 [facility]; [facility] Work Phone: Comment on above: PATIENT WAS FASTINGP ERFORMED BY: CB [facility] Jtehws[address]Dublin [place] [id number] Bilirubin [Mass/Vol] mg/dL Normal 0.0-1.2 [facility]; [facility] Work Phone: Comment on above: PATIENT WAS FASTINGP ERFORMED BY: CB [facility] [address]zskjw[address]Dublin [place] [id number] Bilirubin.direct [Mass/Vol] 0.08 mg/dL Normal 0.00-0.40 [facility] Internal [facility]; [facility] Work Phone: Comment on above: PATIENT WAS FASTINGP ERFORMED BY: CB [facility] Bzmdkb[address] [place] [id number] Protein [Mass/Vol] 6.5 g/dL Normal 6.0-8.5 [facility]; [facility] Work Phone: Comment on above: PATIENT WAS FASTINGP ERFORMED BY: CB [facility] Txqkff[address] [place] [id number] HEPATIC FUNCTION PANEL (7517 6)Ordered By: Line Dancer on 07-10-2020 Albumin [Mass/Vol] 4.7 g/dL Normal 3.8-4.9 [facility]; [facility] Work Phone: Comment on above: do in 2weeks; PATIEN T NOT FASTINGPERFORMED BY: CB [facility] Xcxrtu[address] [place] [id number] ALP [Catalytic activity/Vol] 105 [iU]/L Normal 39-117 [facility]; [facility] Work Phone: Comment on above: do in 2weeks; PATIEN T NOT FASTINGPERFORMED BY: CB [facility] Ggpbtw[address] [place] [id number] ALP [Catalytic activity/Vol] 105 U/L Normal 39-117 [facility]; [facility] Work Phone: Comment on above: do in 2weeks; PATIEN T NOT FASTINGPERFORMED BY: CB [facility] Wrfptp[address]Dublin [place] [id number] ALT [Catalytic activity/Vol] 47 [iU]/L Abnormal 0-32 [facility]; [facility] Work Phone: Comment on above: do in 2weeks; PATIEN T NOT FASTINGPERFORMED BY: CB [facility] Jtuzlg[address] [place] [id number] ALT [Catalytic activity/Vol] 47 U/L Abnormal 0-32 [facility]; [facility] Work Phone: Comment on above: do in 2weeks; PATIEN T NOT FASTINGPERFORMED BY: CB [facility] Zjnokm[address] [place] [id number] AST [Catalytic activity/Vol] 20 [iU]/L Normal 0-40 [facility]; [facility] Work Phone: Comment on above: do in 2weeks; PATIEN T NOT FASTINGPERFORMED BY: CB [facility] Zkqses[address]Dublin [place] [id number] AST [Catalytic activity/Vol] 20 U/L Normal 0-40 [facility]; [facility] Work Phone: Comment on above: do in 2weeks; PATIEN T NOT FASTINGPERFORMED BY: [facility]6[address] [facility] [id number] Bilirubin [Mass/Vol] 0.2 mg/dL Normal 0.0-1.2 [facility]; [facility] Work Phone: Comment on above: do in 2weeks; PATIEN T NOT FASTINGPERFORMED BY: [facility] Swrelq5[address] [facility] [id number] Bilirubin.direct [Mass/Vol] 0.08 mg/dL Normal 0.00-0.40 [facility] Internal [facility]; [facility] Work Phone: Comment on above: do in 2weeks; PATIEN T NOT FASTINGPERFORMED BY: [facility]6[address] [facility] [id number] Protein [Mass/Vol] 7.0 g/dL Normal 6.0-8.5 [facility]; [facility] Work Phone: Comment on above: do in 2weeks; PATIEN T NOT FASTINGPERFORMED BY: [facility]6[address] [facility] [id number] HEPATIC FUNCTION PANEL (8007 6)Ordered By: Line Dancer on 06-14-2020 Albumin [Mass/Vol] 4.5 g/dL Normal 3.8-4.9 [facility]; [facility] Work Phone: Comment on above: Test(s) 078988-VQV-B ; 227875-FOP-J; 820419-Wuupapavcaudt; 954567-Tmvzxcigmyw, Total; 106319-RFO-J (Total); 013041-Bzrzm LDL-P; 770491-GOR Size; 088673-OI-DW Scorewas developed and its performance characteristics determinedby [facility]. It has not been cleared or approved by the Foodand Drug Administration.PATIENT WAS FASTINGPERFORMED BY: [address] [id number] BY: too.me6[address] [facility] [id number] ALP [Catalytic activity/Vol] 111 [iU]/L Normal 39-117 [facility]; [facility] Work Phone: Comment on above: Test(s) 162890-XAI-J ; 357808-OGX-K; 812491-Gcroaoslhwgqi; 856377-Tliqykxbudd, Total; 099560-HOF-E (Total); 725601-Ewzzl LDL-P; 366737-SOG Size; 582623-TL-CQ Scorewas developed and its performance characteristics determinedby [employer]. It has not been cleared or approved by the Foodand Drug Administration.PATIENT WAS FASTINGPERFORMED BY: [email or web address] [address] [id number] BY: [email or web address] [facility]American [facility] [id number] ALP [Catalytic activity/Vol] 111 U/L Normal 39-117 [facility]; [facility] Work Phone: Comment on above: Test(s) 677769-PDY-E ; 338753-UAZ-C; 344699-Fkerxluugkdgb; 740425-Fuzjfrrpchc, Total; 686317-WMU-J (Total); 908755-Brayk LDL-P; 897183-OUF Size; 959780-PN-GD Scorewas developed and its performance characteristics determinedby [employer]. It has not been cleared or approved by the Foodand Drug Administration.PATIENT WAS FASTINGPERFORMED BY: tabulate[address] [id number] BY: [employer] Exacoz69[address] [facility] [id number] ALT [Catalytic activity/Vol] 73 [iU]/L Abnormal 0-32 [facility]; [facility] Work Phone: Comment on above: Test(s) 153295-KMC-B ; 032697-YKD-E; 211897-Senhzuagohzow; 388263-Rvmhupmrpdr, Total; 453996-ROL-L (Total); 351930-Cbcbv LDL-P; 894681-HFE Size; 088882-II-BR Scorewas developed and its performance characteristics determinedby [employer]. It has not been cleared or approved by the Foodand Drug Administration.PATIENT WAS FASTINGPERFORMED BY: NGen[employer]ec[address] [id number] BY: NGenTecDavid [place] 57336[address] [facility] [id number] ALT [Catalytic activity/Vol] 73 U/L Abnormal 0-32 [facility]; [facility] Work Phone: Comment on above: Test(s) 462966-PZF-X ; 189456-MKQ-O; 271475-Xmxdejzbllcky; 526442-Qorgtbjbzro, Total; 153792-FQL-Y (Total); 041502-Gnfhi LDL-P; 934748-HQT Size; 906953-ZS-UI Scorewas developed and its performance characteristics determinedby [employer]. It has not been cleared or approved by the Foodand Drug Administration.PATIENT WAS FASTINGPERFORMED BY: tabulate[address] [id number] BY: Nellix [address] [facility]American [facility] [id number] AST [Catalytic activity/Vol] 34 [iU]/L Normal 0-40 [facility]; [facility] Work Phone: Comment on above: Test(s) 674743-TYD-J ; 631170-ZBC-V; 387163-Pdkdcmysnmsgn; 712526-Czzgqijvqgt, Total; 489759-QDF-V (Total); 284975-Uieal LDL-P; 887430-ZAR Size; 822003-JQ-RJ Scorewas developed and its performance characteristics determinedby [employer]. It has not been cleared or approved by the Foodand Drug Administration.PATIENT WAS FASTINGPERFORMED BY: NGenTec[address] [id number] BY: NGenTecOcean Medical CenterQdrgiv3521 [facility] [id number] AST [Catalytic activity/Vol] 34 U/L Normal 0-40 [facility]; [facility] Work Phone: Comment on above: Test(s) 929760-EFG-R ; 586794-IPS-I; 636923-Uoodraumekihh; 286326-Jdtlwtgymyn, Total; 009435-VPU-V (Total); 875455-Auzpc LDL-P; 231343-RWF Size; 025755-QL-RL Scorewas developed and its performance characteristics determinedby Check[employer].In. It has not been cleared or approved by the Foodand Drug Administration.PATIENT WAS FASTINGPERFORMED BY: [employer] [address] [id number] BY: NGenTecOcean Medical CenterIlmvls1520 [facility] [id number] Bilirubin [Mass/Vol] mg/dL Normal 0.0-1.2 [facility] rehensive Internal Medicine; [facility] Work Phone: Comment on above: Test(s) 723403-HZL-Y ; 079264-SYI-Z; 689159-Bpvbdleizgkew; 402314-Ltufprvnnlh, Total; 273881-PRS-F (Total); 050698-Sopfd LDL-P; 244932-UUX Size; 488952-UT-YH Scorewas developed and its performance characteristics determinedby Checkd.In. It has not been cleared or approved by the Foodand Drug Administration.PATIENT WAS FASTINGPERFORMED BY: Checkd.In [address] [id number] BY: Checkd.In Cpswcj8519 [facility] [id number] Bilirubin [Mass/Vol] mg/dL Normal 0.0-1.2 [facility] rehensive Internal Medicine; [facility] Work Phone: Comment on above: Test(s) 660027-AVQ-Y ; 520666-PYC-B; 398762-Ojulzoizagxhk; 758049-Mtjbmzdjjrh, Total; 633932-AVE-W (Total); 533478-Ppuoy LDL-P; 009605-WNQ Size; 349208-BU-MG Scorewas developed and its performance characteristics determinedby Checkd.In. It has not been cleared or approved by the Foodand Drug Administration.PATIENT WAS FASTINGPERFORMED BY: IP Commerceton1447 [facility] [id number] BY: NGenTec Cqauwv2845 QuerydayAt[facility] Pineville [id number] Bilirubin.direct [Mass/Vol] 0.09 mg/dL Normal 0.00-0.40 [facility]; [facility] Work Phone: Comment on above: Test(s) 556503-SEM-W ; 194562-COR-U; 577421-Hkbbgpytdaxzu; 182979-Zqpxrtdraza, Total; 166288-LBR-X (Total); 744482-Jeimr LDL-P; 007229-YNX Size; 340176-QP-SH Scorewas developed and its performance characteristics determinedby Checkd.In. It has not been cleared or approved by the Foodand Drug Administration.PATIENT WAS FASTINGPERFORMED BY: IP [employer] [id number] BY: too.me6370 [facility] [id number] Protein [Mass/Vol] 6.8 g/dL Normal 6.0-8.5 [facility] Internal Medicine; [facility] Work Phone: Comment on above: Test(s) 516371-AVC-J ; 417648-PEL-T; 538737-Xjwohpjcjywzw; 010691-Vtnkxxqehrj, Total; 507547-JDB-Q (Total); 722259-Jjort LDL-P; 312031-QDR Size; 048730-VM-ZE Scorewas developed and its performance characteristics determinedby Checkd.In. It has not been cleared or approved by the Foodand Drug Administration.PATIENT WAS FASTINGPERFORMED BY: [employer] [address] [id number] BY: Lyftlin6370 [facility] [id number] HGB A1C (58041)Ordered By: Allyn ystem Hoop Coiling Machine Operator on 06-14-2020 HbA1c (Bld) [Mass fraction] 5.7 % Abnormal 4.8-5.6 [facility]; [facility] Work Phone: Comment on above: . Prediabetes: 5.7 - 6.4 Diabetes: >6.4 Glycemic control for adults with diabetes: <7.0 Test(s) 633066-YQZ-O ; 844079-DCL-F; 803266-Uizzceiemsnrz; 047183-Ojekrzlusdp, Total; 337990-JDM-P (Total); 201585-Yszhn LDL-P; 854278-FQY Size; 138172-QI-RO Scorewas developed and its performance characteristics determinedby Checkd.In. It has not been cleared or approved by the Foodand Drug Administration.PATIENT WAS FASTINGPERFORMED BY: [employer] [place] [address] [id number] BY: [email or web address] [facility] [id number] NMR Profile (91618)Ordered B y: Line Dancer on 06-14-2020 Cholesterol [Mass/Vol] 224 mg/dL Abnormal 100-199 [facility]; [facility] Work Phone: Comment on above: Test(s) 072506-OUA-S ; 227140-AUC-B; 836868-Gjdhscisluuaj; 664545-Kuvsojxkvbx, Total; 921608-ZDH-W (Total); 236527-Fxecb LDL-P; 194228-SZK Size; 916966-JX-DY Scorewas developed and its performance characteristics determinedby Checkd.In. It has not been cleared or approved by the Foodand Drug Administration.PATIENT WAS FASTINGPERFORMED BY: IP Commerce[address] [id number] BY: too.me6370 [facility] [id number] Cholesterol in HDL [Mass/Vol] 76 mg/dL Normal [facility]; [facility] Work Phone: Comment on above: Test(s) 613819-MAW-S ; 664494-RXH-P; 615453-Zvlabhruegeyu; 049310-Xzdcdywsqjk, Total; 969649-TXK-R (Total); 964978-Dodev LDL-P; 276762-REU Size; 893499-SS-BB Scorewas developed and its performance characteristics determinedby Checkd.In. It has not been cleared or approved by the Foodand Drug Administration.PATIENT WAS FASTINGPERFORMED BY: [employer] [address] [id number] BY: Agentek Uplqci6695 [facility] [id number] Lipoprotein.alpha [Moles/Vol] 39.4 umol/L Normal [facility]; [facility] Work Phone: Comment on above: Test(s) 991622-OLR-D ; 762285-WFH-B; 706193-Hdjjolddneyyr; 943707-Qniqsutzzgf, Total; 527881-QLG-F (Total); 995505-Qvhcx LDL-P; 841501-HCT Size; 396608-QQ-JE Scorewas developed and its performance characteristics determinedby Checkd.In. It has not been cleared or approved by the Foodand Drug Administration.PATIENT WAS FASTINGPERFORMED BY: [employer] [address] [id number] BY: Lyftlin6370 [facility] [id number] Lipoprotein.beta.sub particle [Entitic length] 21.1 nm Normal [facility]; [facility] Work Phone: Comment on above: INTERPRETATIVE INFORMATION PARTICLE CONCENTRATION AND SIZE <--Lower CVD Risk Higher CVD Risk--> LDL AND HDL PARTICLES Percentile in Reference Population HDL-P (total) High 75th 50th 25th Low >34.9 34.9 30.5 26.7 <26.7 . Small LDL-P Low 25th 50th 75th High <117 117 527 839 >839 . LDL Size <-Large (Pattern A)-> <-Small (Pattern B)-> 23.0 20.6 20.5 19.0 Small LDL-P and LDL Size are associated with CVD risk, but not afterLDL-P is taken into account. Test(s) 578467-EDJ-J ; 329116-KOG-G; 434034-Qohsvvgjbnvol; 781981-Dkdoqushzgu, Total; 126189-SNC-Z (Total); 459377-Cbiwz LDL-P; 712651-DRG Size; 319360-WE-NY Scorewas developed and its performance characteristics determinedby Checkd.In. It has not been cleared or approved by the Foodand Drug Administration.PATIENT WAS FASTINGPERFORMED BY: IP [employer] [id number] BY: GetPromotdAmerican Healthcare Systems [id number] Lipoprotein.beta.sub particle [Moles/Vol] 1467 nmol/L Abnormal Comprehensi Internal Medicine; [facility] Work Phone: Comment on above: Low < 1000 Moderate 1000 - 1299 Borderline-High 1300 - 1599 High 1600 - 2000 Very High > 2000 Test(s) 528598-AHL-S ; 874400-OZC-V; 412795-Ukbhfokzyvpjw; 534436-Hjtbapoglcj, Total; 793408-RKB-R (Total); 615228-Krdmd LDL-P; 091896-YZS Size; 946891-TU-KH Scorewas developed and its performance characteristics determinedby Checkd.In. It has not been cleared or approved by the Foodand Drug Administration.PATIENT WAS FASTINGPERFORMED BY: IP Commerce[address] [id number] BY: PlayLabLake Regional [facility] System [id number] Lipoprotein.beta.sub particle.small [Moles/Vol] 446 nmol/L Normal [facility]; [facility] Work Phone: Comment on above: Test(s) 106509-ETZ-Y ; 634558-XPA-Y; 296081-Cbbffwfcrvwgz; 875086-Aqxyuyzvoyu, Total; 842139-YXH-Q (Total); 799616-Otmjf LDL-P; 688878-HHS Size; 188887-TL-FG Scorewas developed and its performance characteristics determinedby Checkd.In. It has not been cleared or approved by the Foodand Drug Administration.PATIENT WAS FASTINGPERFORMED BY: [employer] [address] [id number] BY: Checkd.In Npsmhs0561 [facility] [id number] Triglyceride [Mass/Vol] 66 mg/dL Normal 0-149 [facility]; [facility] Work Phone: Comment on above: Test(s) 133353-BQT-L ; 743112-MNI-X; 082039-Gtoadkfardblk; 020638-Eijoyedclzb, Total; 005035-NNK-Z (Total); 738078-Xgqva LDL-P; 668653-TJS Size; 516982-WJ-JW Scorewas developed and its performance characteristics determinedby Checkd.In. It has not been cleared or approved by the Foodand Drug Administration.PATIENT WAS FASTINGPERFORMED BY: [employer] [address] [id number] BY: Agentek Spnysx8572 [facility] [id number] NMR Profile (54390) 137 mg/dL Abnormal 0-99 [facility] Internal Medicine; [facility] Work Phone: Comment on above: . Optimal < 100 Abov e optimal 100 - 129 Borderline 130 - 159 High 160 - 189 Very high > 189 . Test(s) 793108-QXR-P ; 660968-BHW-U; 617869-Byesguaqffjfw; 568834-Ewdyqmaelwr, Total; 107490-DBK-U (Total); 263688-Otsaf LDL-P; 029479-ITO Size; 521902-KZ-MR Scorewas developed and its performance characteristics determinedby Checkd.In. It has not been cleared or approved by the Foodand Drug Administration.PATIENT WAS FASTINGPERFORMED BY: BN [employer] [id number] BY: TAVIA NGenTecOcean Medical CenterWfogeu2189 [facility] [id number] NMR Profile (09687) 76 mg/dL Normal [facility]; [facility] Work Phone: NMR Profile (38043) 66 mg/dL Normal 0-149 [facility] Internal Medicine; [facility] Work Phone: NMR Profile (63019) 224 mg/dL Abnormal 100-199 [facility] Internal Medicine; [facility] Work Phone: HGB A1C (26175)Ordered By: S ystem Hoop Coiling Machine Operator on 03-23-2020 HbA1c (Bld) [Mass fraction] 5.8 % Abnormal 4.8-5.6 [facility] Work Phone: Comment on above: . Prediabetes: 5.7 - 6.4 Diabetes: >6.4 Glycemic control for adults with diabetes: <7.0 today; PATIENT NOT F ASTINGPERFORMED BY: TAVIA NGenTecOcean Medical CenterMkygzv3346 [facility] [id number] CBC W/AUTO DIFF WBC (19960)O rdered By: Line Dancer on 03-14-2020 Basophils (Bld) [#/Vol] 0.1 {x10E3/uL} Normal 0.0-0.2 [facility] Internal Medicine Work Phone: Comment on above: Test(s) 743086-AQV-M ; 503296-DSO-W; 088232-Itrcmleprdegr; 109782-Ukevkbaqkvw, Total; 170474-VJR-U (Total); 661694-Qrmzn LDL-P; 899424-OOS Size; 679055-GL-LE Scorewas developed and its performance characteristics determinedby China Power EquipmentBarton County Memorial Hospital. It has not been cleared or approved by the Foodand Drug Administration.PATIENT WAS FASTINGPERFORMED BY: [address] [id number] BY: China Power EquipmentHarbor Beach Community Hospital6370 [facility] [id number] Basophils (Bld) [#/Vol] 0.1 10*3/uL Normal 0.0-0.2 [facility]; [facility] Work Phone: Comment on above: Test(s) 704317-LWK-Q ; 859455-JXS-R; 278431-Fumkcphtfyspo; 288735-Hgxsvorfcvi, Total; 536690-UJM-P (Total); 417751-Attfl LDL-P; 509815-EZE Size; 729166-CB-UE Scorewas developed and its performance characteristics determinedby Checkd.In. It has not been cleared or approved by the Foodand Drug Administration.PATIENT WAS FASTINGPERFORMED BY: [employer] [address] [id number] BY: [employer] [facility] to the WorldAmerican Healthcare Systems [id number] Basophils/100 WBC (Bld) 1 % Normal [facility] Work Phone: Comment on above: Test(s) 387967-XST-R ; 120211-OZW-Z; 277721-Vdetdtzwcmtcq; 322091-Mrzaxlcgwer, Total; 671787-EJE-P (Total); 097617-Dejbp LDL-P; 116739-DPC Size; 144289-TO-HC Scorewas developed and its performance characteristics determinedby Checkd.In. It has not been cleared or approved by the Foodand Drug Administration.PATIENT WAS FASTINGPERFORMED BY: [employer] [address] [id number] BY: iloho70 [facility] [id number] Eosinophils (Bld) [#/Vol] 0.1 {x10E3/uL} Normal 0.0-0.4 [facility] Work Phone: Comment on above: Test(s) 411978-QJN-B ; 455933-QKG-R; 406958-Vqxozhjxfpgog; 393951-Sdeaehjpvgm, Total; 540138-NUE-I (Total); 719263-Uclmg LDL-P; 319030-DQQ Size; 836493-LV-BT Scorewas developed and its performance characteristics determinedby Checkd.In. It has not been cleared or approved by the Foodand Drug Administration.PATIENT WAS FASTINGPERFORMED BY: tabulate[address] [id number] BY: NGenTecOcean Medical CenterKevjhc4375 [facility] [id number] Eosinophils (Bld) [#/Vol] 0.1 10*3/uL Normal 0.0-0.4 [facility]; [facility] Work Phone: Comment on above: Test(s) 256427-UKQ-A ; 750841-NKG-I; 625164-Dkxizhgdjmtba; 534232-Oacnobuwylg, Total; 089532-WMQ-E (Total); 980534-Llcci LDL-P; 118242-KQH Size; 294480-GH-TE Scorewas developed and its performance characteristics determinedby Checkd.In. It has not been cleared or approved by the eblizzand Drug Administration.PATIENT WAS FASTINGPERFORMED BY: IP Commerce[address] [id number] BY: NellixOcean Medical CenterSuqaqo0640 [facility] [id number] Eosinophils/100 WBC (Bld) 1 % Normal [facility] Work Phone: Comment on above: Test(s) 355345-RMJ-K ; 319007-UYP-D; 421606-Rolbvdyppxcjk; 550563-Yidxgbcraqj, Total; 055291-MEB-R (Total); 421641-Tjzfl LDL-P; 772254-CDE Size; 903280-EI-UI Scorewas developed and its performance characteristics determinedby Checkd.In. It has not been cleared or approved by the FoodButterfly Health Drug Administration.PATIENT WAS FASTINGPERFORMED BY: tabulate[address] [id number] BY: NGenTecOcean Medical CenterBflmvp8383 [facility] [id number] Erythrocyte distribution width (RBC) [Ratio] 14.9 % Normal 11.7-15.4 [facility] Work Phone: Comment on above: Test(s) 581698-ZSR-X ; 149654-JSB-X; 880547-Rypvcdhbvgstt; 621165-Kzfxnubcpup, Total; 530025-QXK-S (Total); 869380-Ddeow LDL-P; 941463-OKF Size; 978618-EG-CU Scorewas developed and its performance characteristics determinedby Checkd.In. It has not been cleared or approved by the Foodand Drug Administration.PATIENT WAS FASTINGPERFORMED BY: [employer] [address] [id number] BY: Agentek Dvfmif3913 [facility] [id number] Hematocrit (Bld) [Volume fraction] 45.3 % Normal 34.0-46.6 [facility] Work Phone: Comment on above: Test(s) 312095-IBM-R ; 863395-YEK-W; 121696-Hbqahvwfsipfw; 920763-Gchfjwkuqzq, Total; 603928-CLE-S (Total); 369933-Boxjv LDL-P; 245099-CZB Size; 900496-GB-IZ Scorewas developed and its performance characteristics determinedby Checkd.In. It has not been cleared or approved by the Foodand Drug Administration.PATIENT WAS FASTINGPERFORMED BY: [employer] [address] [id number] BY: Agentek Wxhhtt6482 [facility] [id number] Hemoglobin (Bld) [Mass/Vol] 15.2 g/dL Normal 11.1-15.9 [facility] Work Phone: Comment on above: Test(s) 507599-KXQ-O ; 834177-NVP-L; 393095-Zwfzdjpswbggl; 941816-Nemozdlucbo, Total; 593924-MTM-N (Total); 580388-Fcmit LDL-P; 810180-QQA Size; 892409-VV-PH Scorewas developed and its performance characteristics determinedby Checkd.In. It has not been cleared or approved by the Foodand Drug Administration.PATIENT WAS FASTINGPERFORMED BY: [employer] [address] [id number] BY: Agentek Cxebro3713 [facility] [id number] Immature granulocytes (Bld) [#/Vol] 0.0 {x10E3/uL} Normal 0.0-0.1 [facility] Work Phone: Comment on above: Test(s) 064423-IDX-C ; 663012-MHN-F; 957006-Kwkvoyvliwyew; 876131-Myuuakruwdj, Total; 570956-EVA-O (Total); 353329-Inarp LDL-P; 472935-KJJ Size; 680048-BX-HE Scorewas developed and its performance characteristics determinedby Checkd.In. It has not been cleared or approved by the Foodand Drug Administration.PATIENT WAS FASTINGPERFORMED BY: [employer] [address] [id number] BY: too.me6370 [facility] [id number] Immature granulocytes (Bld) [#/Vol] 0.0 10*3/uL Normal 0.0-0.1 [facility]; [facility] Work Phone: Comment on above: Test(s) 010333-FPY-Z ; 363948-RHB-R; 835789-Otrtowmtdqseq; 568377-Tgwnsvjhhxs, Total; 115306-YLR-Q (Total); 429134-Ohbit LDL-P; 375929-RQV Size; 311798-WG-SG Scorewas developed and its performance characteristics determinedby Checkd.In. It has not been cleared or approved by the Foodand Drug Administration.PATIENT WAS FASTINGPERFORMED BY: [employer] [address] [id number] BY: Agentek Qqrxas1990 [facility] [id number] Immature granulocytes/100 WBC (Bld) 1 % Normal [facility] Work Phone: Comment on above: Test(s) 400767-SVJ-T ; 764016-NUZ-S; 010424-Ftrwvpvaodihu; 994620-Cuppcnkpqwn, Total; 438917-SBA-H (Total); 248963-Vxzxx LDL-P; 502544-NHU Size; 237454-NB-AE Scorewas developed and its performance characteristics determinedby Checkd.In. It has not been cleared or approved by the Foodand Drug Administration.PATIENT WAS FASTINGPERFORMED BY: NGenTec[address] [id number] BY: NGenTecOcean Medical CenterPtapgm9851 [facility] [id number] Lymphocytes (Bld) [#/Vol] 1.3 {x10E3/uL} Normal 0.7-3.1 [facility] Work Phone: Comment on above: Test(s) 884864-SBH-Z ; 160878-NXE-M; 917497-Fgnjnrptllvwb; 399582-Bcmybkptktd, Total; 155769-NHO-M (Total); 287611-Nanfk LDL-P; 572875-PHQ Size; 299313-GK-ZC Scorewas developed and its performance characteristics determinedby Checkd.In. It has not been cleared or approved by the Foodand Drug Administration.PATIENT WAS FASTINGPERFORMED BY: NGenTec[address] [id number] BY: NGenTecOcean Medical CenterIdoebx9415 [facility] [id number] Lymphocytes (Bld) [#/Vol] 1.3 10*3/uL Normal 0.7-3.1 [facility]; [facility] Work Phone: Comment on above: Test(s) 741868-OFB-O ; 757404-UTO-U; 933228-Dxltlrcmpjoth; 560750-Umhgdwdblsj, Total; 166780-TZT-U (Total); 937880-Gkvcf LDL-P; 266168-MTM Size; 253618-IN-AL Scorewas developed and its performance characteristics determinedby Checkd.In. It has not been cleared or approved by the Foodand Drug Administration.PATIENT WAS FASTINGPERFORMED BY: NGenTec[address] [id number] BY: NGenTecOcean Medical CenterEhvifn9795 [facility] [id number] Lymphocytes/100 WBC (Bld) 16 % Normal [facility] Work Phone: Comment on above: Test(s) 644856-SLS-O ; 674399-BMX-Q; 299623-Oraxmkrfkbxhx; 012122-Ulahlymkvwp, Total; 948548-HDW-C (Total); 293200-Lfxxu LDL-P; 545721-LPP Size; 227812-GX-KQ Scorewas developed and its performance characteristics determinedby Checkd.In. It has not been cleared or approved by the Foodand Drug Administration.PATIENT WAS FASTINGPERFORMED BY: [employer] [address] [id number] BY: [facility] HospitalTreFoil EnergyAtrium Health Pineville [id number] MCH (RBC) [Entitic mass] 30.4 pg Normal 26.6-33.0 [facility] Work Phone: Comment on above: Test(s) 106929-SRO-G ; 805612-RRC-Q; 042950-Mlautibkffjxg; 038765-Btclqyauvph, Total; 572935-OCS-N (Total); 285115-Fisvr LDL-P; 169006-PEP Size; 578859-DD-IR Scorewas developed and its performance characteristics determinedby Checkd.In. It has not been cleared or approved by the Foodand Drug Administration.PATIENT WAS FASTINGPERFORMED BY: [employer] [address] [id number] BY: iloho70 [facility] [id number] MCHC (RBC) [Mass/Vol] 33.6 g/dL Normal 31.5-35.7 [facility] Work Phone: Comment on above: Test(s) 155720-ZAJ-M ; 816454-RFR-P; 051396-Ksuuyrhhvkpwx; 084935-Xddqvepbfsk, Total; 129568-BPM-Z (Total); 059818-Glroz LDL-P; 346394-IUP Size; 474855-VN-KK Scorewas developed and its performance characteristics determinedby Checkd.In. It has not been cleared or approved by the Foodand Drug Administration.PATIENT WAS FASTINGPERFORMED BY: [employer] [address] [id number] BY: too.me6370 [facility] [id number] MCV (RBC) [Entitic vol] 91 fL Normal 79-97 [facility] Work Phone: Comment on above: Test(s) 748596-WTO-W ; 074737-JOM-O; 693103-Ioetxxouedked; 919689-Cdsimwnqjej, Total; 427208-DGA-G (Total); 190005-Tvcxo LDL-P; 920304-XTC Size; 932849-BX-WJ Scorewas developed and its performance characteristics determinedby Checkd.In. It has not been cleared or approved by the Foodand Drug Administration.PATIENT WAS FASTINGPERFORMED BY: [employer] [address] [id number] BY: too.me6370 [facility] [id number] Monocytes (Bld) [#/Vol] 0.4 {x10E3/uL} Normal 0.1-0.9 [facility] Work Phone: Comment on above: Test(s) 644518-EOK-F ; 030930-NTS-M; 951546-Yyakovasqiduo; 630960-Jmmpividpdu, Total; 513147-FHN-G (Total); 624448-Zfncn LDL-P; 460527-OKU Size; 381566-MF-AJ Scorewas developed and its performance characteristics determinedby Checkd.In. It has not been cleared or approved by the Foodand Drug Administration.PATIENT WAS FASTINGPERFORMED BY: [employer] [address] [id number] BY: Lyftlin6370 [facility] [id number] Monocytes (Bld) [#/Vol] 0.4 10*3/uL Normal 0.1-0.9 [facility]; [facility] Work Phone: Comment on above: Test(s) 933071-KYR-F ; 337110-LOM-K; 247942-Zzjsuubidjgfo; 395716-Rnylkoeukup, Total; 340462-YAL-D (Total); 517680-Lcpav LDL-P; 684209-YLS Size; 276708-CD-TN Scorewas developed and its performance characteristics determinedby Checkd.In. It has not been cleared or approved by the Foodand Drug Administration.PATIENT WAS FASTINGPERFORMED BY: [employer] [address] [id number] BY: iloho70 [facility] [id number] Monocytes/100 WBC (Bld) 5 % Normal [facility] Work Phone: Comment on above: Test(s) 018901-MAW-K ; 118213-DDK-A; 965981-Dqavrsfxscofj; 991248-Iynjghdtflu, Total; 788057-QVD-J (Total); 542617-Cnrsh LDL-P; 935427-EZL Size; 750122-UD-ON Scorewas developed and its performance characteristics determinedby Checkd.In. It has not been cleared or approved by the Foodand Drug Administration.PATIENT WAS FASTINGPERFORMED BY: [employer] [address] [id number] BY: Agentek Ktqpcm4073 [facility] [id number] Neutrophils (Bld) [#/Vol] 6.0 {x10E3/uL} Normal 1.4-7.0 [facility] Work Phone: Comment on above: Test(s) 154398-YAH-L ; 802389-UBS-P; 990098-Qrgmhclroxhae; 696941-Xaxluvusxzi, Total; 578769-AHI-K (Total); 543151-Xxsyx LDL-P; 125459-CZZ Size; 989001-IY-JB Scorewas developed and its performance characteristics determinedby Checkd.In. It has not been cleared or approved by the Foodand Drug Administration.PATIENT WAS FASTINGPERFORMED BY: [employer] [address] [id number] BY: too.[email or web address] [facility] [id number] Neutrophils (Bld) [#/Vol] 6.0 10*3/uL Normal 1.4-7.0 [facility]; [facility] Work Phone: Comment on above: Test(s) 050318-JEE-I ; 765700-KTF-F; 675521-Lbonmczqmhnbj; 169019-Jslaocbcpmo, Total; 435665-LGY-E (Total); 071766-Jpccu LDL-P; 996673-ZZN Size; 932521-FV-NW Scorewas developed and its performance characteristics determinedby Checkd.In. It has not been cleared or approved by the Foodand Drug Administration.PATIENT WAS FASTINGPERFORMED BY: [employer] [address] [id number] BY: [email or web address] [facility] [id number] Neutrophils/100 WBC (Bld) 76 % Normal [facility] Work Phone: Comment on above: Test(s) 757463-XKC-T ; 734157-VTB-Q; 271255-Niuazaeprwwuk; 227224-Bjcuvxbswpu, Total; 832626-VZD-Y (Total); 279038-Wfskf LDL-P; 652631-URD Size; 475351-QU-VL Scorewas developed and its performance characteristics determinedby Checkd.In. It has not been cleared or approved by the Foodand Drug Administration.PATIENT WAS FASTINGPERFORMED BY: [employer] [address] [id number] BY: Agentek Trjvtw1532 [facility] [id number] Platelets (Bld) [#/Vol] 283 {x10E3/uL} Normal 150-450 [facility] Work Phone: Comment on above: Test(s) 955582-UJS-B ; 419264-HFO-N; 293710-Ciisnjbdgiypn; 486254-Lrtyxwxngnr, Total; 690713-KFE-E (Total); 379997-Ahote LDL-P; 718853-FED Size; 163710-UH-DZ Scorewas developed and its performance characteristics determinedby Checkd.In. It has not been cleared or approved by the Foodand Drug Administration.PATIENT WAS FASTINGPERFORMED BY: tabulaterp [address] [id number] BY: NGenTecrp Mjmzux2942 [facility]dayAt[facility] [id number] Platelets (Bld) [#/Vol] 283 10*3/uL Normal 150-450 [facility]; [facility] Internal Medicine Work Phone: Comment on above: Test(s) 930364-MAQ-D ; 704533-FXE-T; 805333-Qezqjquyfixyr; 689009-Izyejgzxyks, Total; 600145-IMV-E (Total); 777025-Axtcu LDL-P; 452243-MSU Size; 503146-UZ-NX Scorewas developed and its performance characteristics determinedby Checkd.In. It has not been cleared or approved by the Foodand Drug Administration.PATIENT WAS FASTINGPERFORMED BY: [employer] [address] [id number] BY: [email or web address] QuerydayAt[facility] Health [facility] [id number] RBC (Bld) [#/Vol] 5.00 {x10E6/uL} Normal 3.77-5.28 [facility] Internal Medicine Work Phone: Comment on above: Test(s) 631935-VAR-X ; 197256-RSX-P; 555514-Fkgsvyjtxzfpp; 589190-Vmiskiimfwh, Total; 422079-AEG-H (Total); 484634-Hnmlj LDL-P; 903642-PUO Size; 914527-GA-BG Scorewas developed and its performance characteristics determinedby Checkd.In. It has not been cleared or approved by the Foodand Drug Administration.PATIENT WAS FASTINGPERFORMED BY: [employer] [address] [id number] BY: [employer] LabMyMedLeads.comrp Vilksq1308 [place] WhoseView.ieAtrium Health [facility]ville [id number] RBC (Bld) [#/Vol] 5.00 10*6/uL Normal 3.77-5.28 [facility]; [facility] Work Phone: Comment on above: Test(s) 914251-CRT-R ; 925071-DIQ-G; 241394-Uigvnnvmuifar; 765451-Ilolfkhlpsi, Total; 704386-WHR-N (Total); 392245-Awtew LDL-P; 317869-YMY Size; 854582-PX-MB Scorewas developed and its performance characteristics determinedby [employer]. It has not been cleared or approved by the Foodand Drug Administration.PATIENT WAS FASTINGPERFORMED BY: [facility] [place] [address] [id number] BY: iloho70 [facility] [id number] WBC (Bld) [#/Vol] 7.8 {x10E3/uL} Normal 3.4-10.8 [facility] Internal Medicine Work Phone: Comment on above: Test(s) 197295-DAE-O ; 915612-XIQ-U; 075541-Cumrtantgngkh; 858048-Aucpgykijhy, Total; 515523-XUG-F (Total); 752389-Xzcfo LDL-P; 467238-LTC Size; 258817-EQ-MR Scorewas developed and its performance characteristics determinedby Checkd.In. It has not been cleared or approved by the Foodand Drug Administration.PATIENT WAS FASTINGPERFORMED BY: IP [employer] [id number] BY: too.[email or web address] [facility] [id number] WBC (Bld) [#/Vol] 7.8 10*3/uL Normal 3.4-10.8 [facility] Internal Medicine; [facility] Work Phone: Comment on above: Test(s) 406403-TSS-G ; 495154-JYR-C; 085024-Ihumzcbdplxlt; 780317-Gqgvtlafavg, Total; 426525-KPB-S (Total); 194545-Xuekl LDL-P; 161886-ZHS Size; 313818-TD-IM Scorewas developed and its performance characteristics determinedby Checkd.In. It has not been cleared or approved by the Foodand Drug Administration.PATIENT WAS FASTINGPERFORMED BY: tabulate[address] [id number] BY: NGenTecPresbyterian Kaseman HospitalNkppmz0531 [facility] [id number] METABOLIC PANEL, COMPREHENSI VE (49769)Ordered By: Line Dancer on 03-14-2020 Albumin [Mass/Vol] 4.4 g/dL Normal 3.8-4.9 [facility] Internal Medicine Work Phone: Comment on above: Test(s) 916122-BIW-B ; 114548-NCI-S; 350615-Ccagynbgvbmmu; 321084-Rhjlcqvioew, Total; 483890-PEW-E (Total); 286928-Xjmng LDL-P; 035500-LPN Size; 004002-LD-US Scorewas developed and its performance characteristics determinedby Checkd.In. It has not been cleared or approved by the Foodand Drug Administration.PATIENT WAS FASTINGPERFORMED BY: [employer] [address] [id number] BY: Nellix Uhouio8739 [facility] [id number] Albumin/Globulin [Mass ratio] 1.8 {ratio} Normal 1.2-2.2 [facility] Internal Medicine Work Phone: Comment on above: Test(s) 254062-LGB-Q ; 779348-LBS-G; 447730-Xxmgminnqyqnd; 872474-Kqtytseiamq, Total; 333258-MPO-K (Total); 024555-Fcgxh LDL-P; 099222-HEX Size; 851126-MT-YJ Scorewas developed and its performance characteristics determinedby Checkd.In. It has not been cleared or approved by the Foodand Drug Administration.PATIENT WAS FASTINGPERFORMED BY: [employer] [address] [id number] BY: Lyftlin6370 [facility] [id number] ALP [Catalytic activity/Vol] 105 [iU]/L Normal 39-117 [facility] Work Phone: Comment on above: Test(s) 675942-TJH-I ; 864626-XJT-Y; 224719-Vluarerxumqkw; 044681-Neygjqdjpss, Total; 086579-ZXC-W (Total); 448609-Mnreq LDL-P; 103454-YIT Size; 637175-SP-OH Scorewas developed and its performance characteristics determinedby Checkd.In. It has not been cleared or approved by the Foodand Drug Administration.PATIENT WAS FASTINGPERFORMED BY: [employer] [address] [id number] BY: NGenTecOcean Medical CenterLowoft5475 [facility] [id number] ALP [Catalytic activity/Vol] 105 U/L Normal 39-117 [facility]; [facility] Work Phone: Comment on above: Test(s) 389466-JQG-W ; 215423-KVD-H; 930525-Yteryivgswsdg; 735730-Kglzofcezwi, Total; 980368-JHF-W (Total); 434467-Rlcel LDL-P; 935409-GYW Size; 175813-VY-CK Scorewas developed and its performance characteristics determinedby Checkd.In. It has not been cleared or approved by the Foodand Drug Administration.PATIENT WAS FASTINGPERFORMED BY: NGenTec[address] [id number] BY: NGenTecOcean Medical CenterKafcya2375 [facility] [id number] ALT [Catalytic activity/Vol] 35 [iU]/L Abnormal 0-32 [facility] Work Phone: Comment on above: Test(s) 813984-WZU-I ; 224100-FKV-H; 714743-Vfczqvjnfuang; 906145-Skxsaawhxrw, Total; 022620-MLT-C (Total); 865427-Skwbf LDL-P; 621279-ZJM Size; 316027-PH-PX Scorewas developed and its performance characteristics determinedby Checkd.In. It has not been cleared or approved by the Foodand Drug Administration.PATIENT WAS FASTINGPERFORMED BY: NGenTec[address] [id number] BY: NGenTecOcean Medical CenterRpldzw9875 [facility] [id number] ALT [Catalytic activity/Vol] 35 U/L Abnormal 0-32 [facility]; [facility] Work Phone: Comment on above: Test(s) 920586-YVO-V ; 180662-XOR-E; 967156-Esojsnkuwzkey; 314922-Wfdjirmrjbp, Total; 479634-JDO-O (Total); 829679-Rcbvg LDL-P; 683348-WHX Size; 287328-GB-KK Scorewas developed and its performance characteristics determinedby NGenT[employer]. It has not been cleared or approved by the Foodand Drug Administration.PATIENT WAS FASTINGPERFORMED BY: NGenTec[address] [id number] BY: NGenTecDavid Ville 5733670 [facility] [id number] AST [Catalytic activity/Vol] 20 [iU]/L Normal 0-40 [facility] Work Phone: Comment on above: Test(s) 309703-SZV-R ; 493032-NOG-T; 271676-Bqgchhfagpxsb; 473468-Gypyapiidsz, Total; 039686-TSP-G (Total); 671857-Yjjlh LDL-P; 030849-BVP Size; 571153-IC-HC Scorewas developed and its performance characteristics determinedby NGenTec. It has not been cleared or approved by the Foodand Drug Administration.PATIENT WAS FASTINGPERFORMED BY: NGenTec[address] [id number] BY: NGenTecOcean Medical CenterKdgxdm5301 [facility] [id number] AST [Catalytic activity/Vol] 20 U/L Normal 0-40 [facility]; [facility] Work Phone: Comment on above: Test(s) 964837-GPN-R ; 985216-VVI-Q; 527022-Ulkyduvhefkys; 387310-Faackuftpnm, Total; 374681-WVJ-I (Total); 829651-Idugn LDL-P; 841287-XKU Size; 032466-FP-MP Scorewas developed and its performance characteristics determinedby Checkd.In. It has not been cleared or approved by the Foodand Drug Administration.PATIENT WAS FASTINGPERFORMED BY: [employer] [address] [id number] BY: [employer]lin6370 [facility] [id number] Bilirubin [Mass/Vol] mg/dL Normal 0.0-1.2 [facility] rehensive Internal Medicine Work Phone: Comment on above: Test(s) 302134-ARX-C ; 693651-RXD-J; 829169-Srbcrytjcplfz; 815925-Dpoqfltynqx, Total; 606092-RTB-M (Total); 929190-Quvvh LDL-P; 996252-RYD Size; 795134-NH-UY Scorewas developed and its performance characteristics determinedby Checkd.In. It has not been cleared or approved by the Foodand Drug Administration.PATIENT WAS FASTINGPERFORMED BY: [employer] [address] [id number] BY: Agentek Wgphxh9308 [facility] [id number] Bilirubin [Mass/Vol] mg/dL Normal 0.0-1.2 Comp rehensive Internal Medicine; [facility] Internal Medicine Work Phone: Comment on above: Test(s) 690962-MDA-X ; 523223-JSK-P; 008663-Itqgmtzfmotji; 338045-Ufmysxyopbw, Total; 522824-GSE-X (Total); 739386-Vmksf LDL-P; 269272-NZJ Size; 790121-PM-LW Scorewas developed and its performance characteristics determinedby Checkd.In. It has not been cleared or approved by the Foodand Drug Administration.PATIENT WAS FASTINGPERFORMED BY: [employer] [address] [id number] BY: too.[email or web address] [facility] [id number] Calcium [Mass/Vol] 9.5 mg/dL Normal 8.7-10.2 [facility] Internal Medicine Work Phone: Comment on above: Test(s) 925653-AMG-M ; 482066-URO-S; 352605-Gponeplvpqhje; 416290-Qlsokrjtrhc, Total; 844695-AGI-C (Total); 986286-Vruez LDL-P; 060303-TSC Size; 753039-KO-GN Scorewas developed and its performance characteristics determinedby Checkd.In. It has not been cleared or approved by the Foodand Drug Administration.PATIENT WAS FASTINGPERFORMED BY: IP Commerce[address] [id number] BY: too.[email or web address] [facility] [id number] Chloride [Moles/Vol] 103 mmol/L Normal 96-106 [facility] Internal Medicine Work Phone: Comment on above: Test(s) 488844-SSP-T ; 306406-JGR-Q; 025269-Ctpgwxkaiibzf; 505874-Zgvxqfjnpne, Total; 060006-HYL-R (Total); 844696-Qnisg LDL-P; 352323-FPO Size; 057811-KS-MR Scorewas developed and its performance characteristics determinedby Checkd.In. It has not been cleared or approved by the Foodand Drug Administration.PATIENT WAS FASTINGPERFORMED BY: [employer] [address] [id number] BY: Lyftlin6370 [facility] [id number] CO2 [Moles/Vol] 27 mmol/L Normal 20-29 [facility] Internal Medicine Work Phone: Comment on above: Test(s) 277497-JUU-I ; 729617-UYJ-T; 431253-Wmtjcxcajpxmd; 249308-Ajiqtzoiihx, Total; 991529-IUQ-X (Total); 224292-Phuhp LDL-P; 237373-GDK Size; 293471-XV-MP Scorewas developed and its performance characteristics determinedby Checkd.In. It has not been cleared or approved by the Foodand Drug Administration.PATIENT WAS FASTINGPERFORMED BY: [employer] [address] [id number] BY: NGenTec Ehxzez9863 [facility] [id number] Creatinine [Mass/Vol] 0.93 mg/dL Normal 0.57-1.00 [facility] Work Phone: Comment on above: Test(s) 367277-BKJ-Q ; 436233-PWK-H; 535861-Xuwgzcttijzmd; 890986-Xvcyxmoucut, Total; 321442-HRE-Z (Total); 922774-Zkttj LDL-P; 178974-AGH Size; 711230-GA-SA Scorewas developed and its performance characteristics determinedby Checkd.In. It has not been cleared or approved by the Foodand Drug Administration.PATIENT WAS FASTINGPERFORMED BY: [employer] [address] [id number] BY: [email or web address] [facility] [id number] GFR/1.73 sq M predicted among blacks CKD-EPI (S/P/Bld) [Vol rate/Area] 79 mL/min/1.73 Normal [facility] Work Phone: Comment on above: Test(s) 562380-PAC-C ; 662446-SZO-Z; 487699-Pjzfavohbbeed; 139082-Khsktouhofc, Total; 827487-YPL-C (Total); 042666-Njehm LDL-P; 833272-WVT Size; 655971-CT-HX Scorewas developed and its performance characteristics determinedby Checkd.In. It has not been cleared or approved by the Foodand Drug Administration.PATIENT WAS FASTINGPERFORMED BY: [employer] [address] [id number] BY: Agentek Wdtmpt8498 [facility] [id number] GFR/1.73 sq M predicted among non-blacks CKD-EPI (S/P/Bld) [Vol rate/Area] 69 mL/min/1.73 Normal [facility] Work Phone: Comment on above: Test(s) 583216-IVM-N ; 094466-BJQ-X; 930703-Utmvesyvnkfxy; 521442-Ycdfqnxqxfe, Total; 923390-ZLS-W (Total); 549044-Vbrdx LDL-P; 232920-FCE Size; 191344-YL-WK Scorewas developed and its performance characteristics determinedby Checkd.In. It has not been cleared or approved by the Foodand Drug Administration.PATIENT WAS FASTINGPERFORMED BY: [employer] [address] [id number] BY: iloho70 [facility] [id number] Globulin (S) [Mass/Vol] 2.4 g/dL Normal 1.5-4.5 [facility] Internal Medicine Work Phone: Comment on above: Test(s) 907297-FXM-B ; 957593-WUW-W; 601896-Fugdbguzuiijv; 257257-Tgktevxhyvl, Total; 501996-LDR-Y (Total); 641172-Oljzi LDL-P; 717076-HSY Size; 677345-IK-NN Scorewas developed and its performance characteristics determinedby Checkd.In. It has not been cleared or approved by the Foodand Drug Administration.PATIENT WAS FASTINGPERFORMED BY: [employer] [address] [id number] BY: too.[email or web address] [facility] [id number] Glucose [Mass/Vol] 95 mg/dL Normal 65-99 [facility] Internal Medicine Work Phone: Comment on above: Test(s) 217746-AXG-U ; 392186-BUE-I; 161038-Batbgtiorswmj; 965023-Dtgvoifvgql, Total; 589682-GWY-S (Total); 894342-Xdmxq LDL-P; 837123-VFS Size; 928003-CC-YE Scorewas developed and its performance characteristics determinedby Checkd.In. It has not been cleared or approved by the Foodand Drug Administration.PATIENT WAS FASTINGPERFORMED BY: tabulate[address] [id number] BY: NGenTecOcean Medical CenterRimzgf8578 [facility] [id number] Potassium [Moles/Vol] 5.0 mmol/L Normal 3.5-5.2 [facility] Internal Medicine Work Phone: Comment on above: Test(s) 655958-NFI-O ; 416332-UUI-T; 523002-Xdbvsbkmegrlz; 402267-Ntassfxscnc, Total; 892581-GIJ-F (Total); 441459-Nrezw LDL-P; 567904-OXG Size; 407929-SP-HH Scorewas developed and its performance characteristics determinedby Checkd.In. It has not been cleared or approved by the Foodand Drug Administration.PATIENT WAS FASTINGPERFORMED BY: [employer] [address] [id number] BY: NGenTecOcean Medical CenterOfqkur6625 [facility] [id number] Protein [Mass/Vol] 6.8 g/dL Normal 6.0-8.5 [facility] Internal Medicine Work Phone: Comment on above: Test(s) 471173-MGR-H ; 326528-JLA-L; 043153-Ntfkaoaskxixr; 651179-Uylqlzshtvc, Total; 161432-YEW-A (Total); 144294-Lnyxz LDL-P; 808378-CIN Size; 593897-HR-JY Scorewas developed and its performance characteristics determinedby Checkd.In. It has not been cleared or approved by the Foodand Drug Administration.PATIENT WAS FASTINGPERFORMED BY: NGenTec[address] [id number] BY: NGenTecOcean Medical CenterUpbwbw5030 [facility] [id number] Sodium [Moles/Vol] 142 mmol/L Normal 134-144 [facility] Internal Medicine Work Phone: Comment on above: Test(s) 027963-FHZ-X ; 206137-AOM-K; 532723-Rftandyhixhvh; 843761-Cbonnvrocrz, Total; 982955-MGR-H (Total); 326047-Phbiz LDL-P; 525870-YKW Size; 816854-UJ-YM Scorewas developed and its performance characteristics determinedby Checkd.In. It has not been cleared or approved by the Foodand Drug Administration.PATIENT WAS FASTINGPERFORMED BY: IP [employer] [id number] BY: iloho70 [facility] [id number] Urea nitrogen [Mass/Vol] 20 mg/dL Normal 6-24 [facility] Work Phone: Comment on above: Test(s) 921644-CZO-L ; 318453-KLU-A; 967740-Jcjohjpixcufm; 113104-Hkibweeouxz, Total; 754905-LQP-O (Total); 680019-Wutcd LDL-P; 382163-XQA Size; 242992-VB-DO Scorewas developed and its performance characteristics determinedby Checkd.In. It has not been cleared or approved by the Foodand Drug Administration.PATIENT WAS FASTINGPERFORMED BY: IP Commerce[address] [id number] BY: iloho70 [facility] [id number] Urea nitrogen/Creatinine [Mass ratio] 22 mg/mg Normal 9-23 [facility] Work Phone: Comment on above: Test(s) 774136-FVV-C ; 103939-QZU-X; 704372-Mudfhjzacawbk; 591414-Cdybbzuorcy, Total; 209756-PIJ-U (Total); 486817-Mqrfl LDL-P; 030178-WGK Size; 325655-KK-KJ Scorewas developed and its performance characteristics determinedby Checkd.In. It has not been cleared or approved by the Foodand Drug Administration.PATIENT WAS FASTINGPERFORMED BY: [employer] [address] [id number] BY: iloho70 [facility] [id number] MICROALBUMINOrdered By: Syst em Hoop Coiling Machine Operator on 03-14-2020 Albumin DL <= 20 mg/L (U) [Mass/Vol] 3.1 ug/mL Normal Comprehensiv e Internal Medicine Work Phone: Comment on above: Test(s) 258140-MXB-V ; 547160-SKQ-L; 212879-Rmmtnbzyackci; 608796-Qbnzvujmhjm, Total; 497079-VQQ-F (Total); 295203-Iwvqt LDL-P; 032720-WTM Size; 621214-SB-XK Scorewas developed and its performance characteristics determinedby Checkd.In. It has not been cleared or approved by the Foodand Drug Administration.PATIENT WAS FASTINGPERFORMED BY: IP Commerce[address] [id number] BY: [employer]70 [facility] [id number] Albumin/Creatinine (U) [Mass ratio] 3 {mg/g_creat} Normal 0-29 [facility] Work Phone: Comment on above: Normal: 0 - 29 Moder ately increased: 30 - 300 Severely increased: >300 Please note reference interval change Test(s) 766728-ZTU-Z ; 161931-RGB-F; 156210-Cvhmhkfdhnhqi; 341300-Saxlpkefryn, Total; 560313-NRS-V (Total); 009429-Rimie LDL-P; 052889-TJA Size; 456774-DY-AV Scorewas developed and its performance characteristics determinedby Checkd.In. It has not been cleared or approved by the Foodand Drug Administration.PATIENT WAS FASTINGPERFORMED BY: [employer] [address] [id number] BY: too.[email or web address] [facility] [id number] Creatinine (U) [Mass/Vol] 95.8 mg/dL Normal [facility] Work Phone: Comment on above: Test(s) 314024-UJL-E ; 570532-PZS-X; 533180-Nisqzkiuriymq; 644307-Xqtfiborxbh, Total; 752447-RXL-S (Total); 788978-Jjovh LDL-P; 227658-AQO Size; 660833-QE-KK Scorewas developed and its performance characteristics determinedby Checkd.In. It has not been cleared or approved by the Foodand Drug Administration.PATIENT WAS FASTINGPERFORMED BY: [employer] [address] [id number] BY: iloho70 [facility] [id number] NMR Profile (32207)Ordered B y: Line Dancer on 03-14-2020 Cholesterol [Mass/Vol] 247 mg/dL Abnormal 100-199 [facility] Work Phone: Comment on above: Test(s) 037252-GMJ-Y ; 394220-YYK-L; 277245-Toajwiqgbwjuh; 080122-Pdiauxkroen, Total; 619355-JLH-Z (Total); 907890-Lkqom LDL-P; 591020-DNA Size; 643685-PR-LK Scorewas developed and its performance characteristics determinedby Checkd.In. It has not been cleared or approved by the Foodand Drug Administration.PATIENT WAS FASTINGPERFORMED BY: [employer] [address] [id number] BY: too.me6370 [facility] [id number] Lipoprotein.alpha [Moles/Vol] 36.2 umol/L Normal [facility] Work Phone: Comment on above: Test(s) 672581-JJP-E ; 815443-NWN-E; 958435-Idikvbggcfksk; 760755-Zlrpawaraor, Total; 754666-KXU-O (Total); 330432-Inrix LDL-P; 050792-VIC Size; 330416-BY-SX Scorewas developed and its performance characteristics determinedby Checkd.In. It has not been cleared or approved by the Foodand Drug Administration.PATIENT WAS FASTINGPERFORMED BY: [employer] [address] [id number] BY: CB LabCoDavid Ville [id number] [facility] [id number] Lipoprotein.beta.sub particle [Entitic length] 21.5 nm Normal [facility] Work Phone: Comment on above: INTERPRETATIVE INFORMATION PARTICLE CONCENTRATION AND SIZE <--Lower CVD Risk Higher CVD Risk--> LDL AND HDL PARTICLES Percentile in Reference Population HDL-P (total) High 75th 50th 25th Low >34.9 34.9 30.5 26.7 <26.7 . Small LDL-P Low 25th 50th 75th High <117 117 527 839 >839 . LDL Size <-Large (Pattern A)-> <-Small (Pattern B)-> 23.0 20.6 20.5 19.0 Small LDL-P and LDL Size are associated with CVD risk, but not afterLDL-P is taken into account. Test(s) 523305-JBY-I ; 715680-UKP-V; 264093-Jeqobkuasiyya; 425411-Dakoshpfjdw, Total; 158248-YXJ-D (Total); 848369-Vqczv LDL-P; 840623-HZZ Size; 850049-OY-FT Scorewas developed and its performance characteristics determinedby NGenTec. It has not been cleared or approved by the Foodand Drug Administration.PATIENT WAS FASTINGPERFORMED BY: [employer] [id number] BY: NGenTecOcean Medical CenterHtnfwv3129 [facility] [id number] Lipoprotein.beta.sub particle [Moles/Vol] 1634 nmol/L Abnormal Comprehensi Internal Medicine Work Phone: Comment on above: Low < 1000 Moderate 1000 - 1299 Borderline-High 1300 - 1599 High 1600 - 2000 Very High > 2000 Test(s) 946848-CVF-G ; 675970-IWC-V; 919317-Kscoygdzqkijs; 885508-Slbhpkqnpoo, Total; 877390-HTZ-H (Total); 793877-Fnhus LDL-P; 486443-EKO Size; 471792-NW-UK Scorewas developed and its performance characteristics determinedby Checkd.In. It has not been cleared or approved by the Foodand Drug Administration.PATIENT WAS FASTINGPERFORMED BY: [employer] [address] [id number] BY: iloho70 [facility]dayAt[facility] [id number] Lipoprotein.beta.sub particle.small [Moles/Vol] 326 nmol/L Normal [facility] Work Phone: Comment on above: Test(s) 236698-SUO-C ; 531760-STH-Y; 757100-Gsteujuticfxr; 414103-Gytwzrqsrcr, Total; 270293-TLX-F (Total); 965226-Abkva LDL-P; 498719-ZHY Size; 194036-UX-HN Scorewas developed and its performance characteristics determinedby Checkd.In. It has not been cleared or approved by the [employer] Drug Administration.PATIENT WAS FASTINGPERFORMED BY: [employer] [address] [id number] BY: too.[email or web address] [place] [facility] [id number] Triglyceride [Mass/Vol] 69 mg/dL Normal 0-149 [facility] Work Phone: Comment on above: Test(s) 668458-NAB-J ; 283463-ZTB-P; 294489-Yewjipqgkakpf; 912490-Fytbgezcxwn, Total; 002665-FIA-U (Total); 199960-Rldzc LDL-P; 031460-MGR Size; 256237-RV-DH Scorewas developed and its performance characteristics determinedby Checkd.In. It has not been cleared or approved by the [facility] Drug Administration.PATIENT WAS FASTINGPERFORMED BY: [employer] [address] [id number] BY: N[employer] Vqqnnd0283 [facility] [id number] NMR Profile (81385) 75 mg/dL Normal [facility] Internal Medicine Work Phone: Comment on above: Test(s) 824724-LJG-T ; 719231-NGK-R; 172573-Imocxpmdijnnl; 265354-Ajgkmetrfya, Total; 555233-OFO-V (Total); 814396-Qrsoi LDL-P; 636096-DUF Size; 119457-XI-IF Scorewas developed and its performance characteristics determinedby Checkd.In. It has not been cleared or approved by the Foodand Drug Administration.PATIENT WAS FASTINGPERFORMED BY: [employer] [address] [id number] BY: [email or web address] [facility] [id number] NMR Profile (43192) 161 mg/dL Abnormal 0-99 [facility] Internal Medicine Work Phone: Comment on above: . Optimal < 100 Abov e optimal 100 - 129 Borderline 130 - 159 High 160 - 189 Very high > 189 . Test(s) 142711-WUZ-T ; 679375-BKA-V; 568155-Wcgmlhyhkflps; 553262-Cgdexpoarjj, Total; 127235-GFV-N (Total); 084540-Lktxo LDL-P; 744402-YFX Size; 454782-RB-XH Scorewas developed and its performance characteristics determinedby Checkd.In. It has not been cleared or approved by the Foodand Drug Administration.PATIENT WAS FASTINGPERFORMED BY: tabulate[address] [id number] BY: Nellix Boxupy4070 [facility] [id number] NMR Profile (78759) 69 mg/dL Normal 0-149 Compr ehens[facility]; [facility] Work Phone: NMR Profile (38172) 247 mg/dL Abnormal 100-199 Compr e[facility]; [facility] Work Phone: TSH (92398)Ordered By: Short Fuzee m Hoop Coiling Machine Operator on 03-14-2020 TSH Qn 1.820 {uIU/mL} Normal 0.450-4.50 0 [facility] Work Phone: Comment on above: Test(s) 627565-CJS-F ; 881163-TLB-H; 165682-Rjsenxauldxnf; 126889-Plrsyzjibbh, Total; 033213-SDG-V (Total); 545440-Ovesw LDL-P; 997647-JON Size; 327612-SG-FQ Scorewas developed and its performance characteristics determinedby Checkd.In. It has not been cleared or approved by the Foodand Drug Administration.PATIENT WAS FASTINGPERFORMED BY: [employer] [facility] [id number] BY: [email or web address] [facility] [id number] URINALYSIS, W/ MICRO (14575) Ordered By: Line Dancer on 03-14-2020 Appearance (U) Clear Normal Comprehens [facility] Internal Medicine Work Phone: Comment on above: Test(s) 242862-LCK-Q ; 584468-AUO-S; 794319-Jvbmxincepwal; 135318-Sdzkusfrlgo, Total; 687913-ASK-K (Total); 995833-Carsw LDL-P; 456314-MMD Size; 251850-VL-OI Scorewas developed and its performance characteristics determinedby Checkd.In. It has not been cleared or approved by the Foodand Drug Administration.PATIENT WAS FASTINGPERFORMED BY: IP [employer] [id number] BY: [email or web address] [facility] [id number] Bilirubin Ql (U) Negative Normal Comprehe nsive Internal Medicine Work Phone: Comment on above: Test(s) 576766-CPE-N ; 184776-RQT-M; 054523-Cqxxjnmewbnyh; 630483-Juxpqckorrd, Total; 671934-DVV-G (Total); 645739-Vcjap LDL-P; 246175-EAY Size; 600729-VY-JS Scorewas developed and its performance characteristics determinedby Checkd.In. It has not been cleared or approved by the Foodand Drug Administration.PATIENT WAS FASTINGPERFORMED BY: [employer] [address] [id number] BY: [email or web address] [facility] [id number] Bilirubin Ql (U) Negative Normal Comprehe nsive Internal Medicine; [facility] Work Phone: Comment on above: Test(s) 307777-LGF-J ; 768769-FQD-D; 232692-Qyarnixqxawwd; 615619-Fjpjqqiqrpj, Total; 956425-USM-O (Total); 502973-Zcwtl LDL-P; 632040-YZD Size; 959864-LT-QV Scorewas developed and its performance characteristics determinedby Checkd.In. It has not been cleared or approved by the Foodand Drug Administration.PATIENT WAS FASTINGPERFORMED BY: [employer] [address] [id number] BY: [email or web address] [facility] [id number] Color (U) Yellow Normal [facility] Work Phone: Comment on above: Test(s) 506338-WHS-T ; 089813-YFI-R; 103500-Xamuziknjhfhj; 127683-Ajtqijujpqx, Total; 858404-GTY-H (Total); 022198-Ghkrm LDL-P; 324851-FNB Size; 226400-YA-IU Scorewas developed and its performance characteristics determinedby Checkd.In. It has not been cleared or approved by the Foodand Drug Administration.PATIENT WAS FASTINGPERFORMED BY: [employer] [address] [id number] BY: [email or web address] [facility] [id number] Glucose Ql (U) Negative Normal [facility] Internal Medicine Work Phone: Comment on above: Test(s) 646086-SAN-H ; 254896-HZU-O; 735821-Nxvmbvsgfdpzk; 041259-Nnulpwwcosm, Total; 515685-DMC-W (Total); 458720-Tcqyx LDL-P; 209272-REW Size; 593927-MV-AK Scorewas developed and its performance characteristics determinedby Checkd.In. It has not been cleared or approved by the Foodand Drug Administration.PATIENT WAS FASTINGPERFORMED BY: [employer] [address] [id number] BY: [email or web address] [facility] [id number] Glucose Ql (U) Negative Normal [facility]prehens [facility]; [facility] Work Phone: Comment on above: Test(s) 666034-PRB-W ; 654286-UGG-M; 732101-Wpmohojsoenrx; 807138-Hdvbtogdayg, Total; 181262-VEB-B (Total); 827301-Dvpnm LDL-P; 696896-PPD Size; 793241-AU-KJ Scorewas developed and its performance characteristics determinedby Checkd.In. It has not been cleared or approved by the Foodand Drug Administration.PATIENT WAS FASTINGPERFORMED BY: [employer] [address] [id number] BY: [email or web address] [facility] [id number] Hemoglobin Ql (U) Negative Normal Compreh ensive Internal Medicine Work Phone: Comment on above: Test(s) 468415-GSW-I ; 631244-XEF-E; 470298-Yjvyllzagqpxf; 264740-Wdcpqogopax, Total; 302143-HCA-P (Total); 424827-Xkklm LDL-P; 382119-MHP Size; 585168-ND-BV Scorewas developed and its performance characteristics determinedby Checkd.In. It has not been cleared or approved by the Foodand Drug Administration.PATIENT WAS FASTINGPERFORMED BY: [employer] [address] [id number] BY: [email or web address] [facility] [id number] Hemoglobin Ql (U) Negative Normal Compreh ensive Internal Medicine; [facility] Work Phone: Comment on above: Test(s) 281249-TIF-H ; 252405-QFF-Z; 897900-Djdpfbxxvlngm; 350257-Qesakspvopa, Total; 170811-EIK-Z (Total); 509699-Vfath LDL-P; 771348-HHC Size; 026728-DN-EG Scorewas developed and its performance characteristics determinedby Checkd.In. It has not been cleared or approved by the Foodand Drug Administration.PATIENT WAS FASTINGPERFORMED BY: [employer] [address] [id number] BY: NGenTecOcean Medical CenterXmedyc6138 [facility] [id number] Ketones Ql (U) Negative Normal Comprehens [facility] Internal Medicine Work Phone: Comment on above: Test(s) 683517-OIH-W ; 921589-RDN-O; 496457-Weqydhpawavvc; 627571-Lqiyrsqvuum, Total; 719096-MCH-S (Total); 868354-Qbwbi LDL-P; 352328-AEJ Size; 582062-KZ-ZP Scorewas developed and its performance characteristics determinedby Checkd.In. It has not been cleared or approved by the [employer] Drug Administration.PATIENT WAS FASTINGPERFORMED BY: Checkd.In [address] [id number] BY: NGenTecOcean Medical CenterHrqnbz1533 [facility] [id number] Ketones Ql (U) Negative Normal Comprehens [facility]; [facility] Work Phone: Comment on above: Test(s) 274864-WDJ-I ; 722825-JPZ-Y; 279884-Gektsbbeacdkn; 471706-Klqiowxcutq, Total; 546939-QLU-G (Total); 580361-Imfhu LDL-P; 116869-YOW Size; 204468-RP-EH Scorewas developed and its performance characteristics determinedby Checkd.In. It has not been cleared or approved by the Foodand Drug Administration.PATIENT WAS FASTINGPERFORMED BY: [employer] [address] [id number] BY: [email or web address] [facility] [id number] Leukocyte esterase Test strip Ql (U) 1+ Abnormal [facility] Work Phone: Comment on above: Test(s) 970191-GIM-T ; 593098-FPP-A; 546076-Jjpobhcxfdctn; 839486-Bxljiawscng, Total; 289648-EDE-M (Total); 708463-Ftuqd LDL-P; 615737-ADC Size; 422180-VI-FB Scorewas developed and its performance characteristics determinedby Checkd.In. It has not been cleared or approved by the Foodand Drug Administration.PATIENT WAS FASTINGPERFORMED BY: IP [employer] [id number] BY: [email or web address] [facility] [id number] Microscopic observation LM Nom (Urine sed) See below: Normal [facility] Work Phone: Comment on above: Microscopic was cesario cated and was performed. Test(s) 280148-EOV-E ; 124857-UKO-F; 613024-Txylclrmehujx; 440429-Dsyuyefkrjw, Total; 401368-SEQ-E (Total); 427194-Mimuc LDL-P; 044949-HOD Size; 505809-XF-PG Scorewas developed and its performance characteristics determinedby Checkd.In. It has not been cleared or approved by the Foodand Drug Administration.PATIENT WAS FASTINGPERFORMED BY: [employer] [address] [id number] BY: Lyftlin6370 [facility] [id number] Nitrite Ql (U) Negative Normal Comprehens [facility] Internal Medicine Work Phone: Comment on above: Test(s) 472443-LVS-P ; 323411-KLF-T; 397571-Nvtgoxgixakpk; 420788-Uflvlkkpokk, Total; 883653-FXR-D (Total); 125362-Alolx LDL-P; 985912-CSQ Size; 222926-DI-HL Scorewas developed and its performance characteristics determinedby Checkd.In. It has not been cleared or approved by the Foodand Drug Administration.PATIENT WAS FASTINGPERFORMED BY: [employer] [address] [id number] BY: [employer]70 [facility] [id number] Nitrite Ql (U) Negative Normal Comprehens [facility]; [facility] Work Phone: Comment on above: Test(s) 459288-DVE-I ; 717432-HGH-U; 080759-Vmzblkmevunfv; 871844-Elahqmjdvfs, Total; 700413-LAC-Y (Total); 231815-Fjbvl LDL-P; 534914-RCN Size; 237417-BN-WJ Scorewas developed and its performance characteristics determinedby Checkd.In. It has not been cleared or approved by the Foodand Drug Administration.PATIENT WAS FASTINGPERFORMED BY: [employer] [address] [id number] BY: [email or web address] [facility] [id number] pH (U) 5.5 [pH] Normal 5.0-7.5 [facility] Work Phone: Comment on above: Test(s) 242849-WDY-U ; 567368-ZQI-Q; 617861-Pwysukqyiukng; 680590-Tbkztbptaxx, Total; 102883-KQX-N (Total); 423119-Nbexz LDL-P; 970270-KEK Size; 845486-BH-IX Scorewas developed and its performance characteristics determinedby Checkd.In. It has not been cleared or approved by the Foodand Drug Administration.PATIENT WAS FASTINGPERFORMED BY: [employer] [address] [id number] BY: [email or web address] [facility] [id number] Protein Ql (U) Negative Normal Comprehens [facility] Internal Medicine Work Phone: Comment on above: Test(s) 195367-KEK-J ; 242981-VVV-J; 723387-Xvtdvjuydwjqx; 530305-Ypfyegtgqpr, Total; 953221-PUC-M (Total); 965460-Fhqta LDL-P; 266740-ZDC Size; 437865-PG-QB Scorewas developed and its performance characteristics determinedby Checkd.In. It has not been cleared or approved by the Foodand Drug Administration.PATIENT WAS FASTINGPERFORMED BY: [employer] [address] [id number] BY: Agentek Eoklpd9277 [facility] [id number] Protein Ql (U) Negative Normal [facility]; [facility] Work Phone: Comment on above: Test(s) 847335-RKC-A ; 544740-OHH-Y; 198573-Iwacfhzgyftdd; 975408-Iasknybywdv, Total; 994408-IHQ-U (Total); 758580-Cnsdl LDL-P; 596202-KIT Size; 293760-YS-OO Scorewas developed and its performance characteristics determinedby Checkd.In. It has not been cleared or approved by the Foodand Drug Administration.PATIENT WAS FASTINGPERFORMED BY: [employer] [address] [id number] BY: Agentek Ezeekx6878 [facility] [id number] Specific gravity (U) [Rel density] 1.021 1 Normal 1.005-1.03 0 [facility] Internal Medicine Work Phone: Comment on above: Test(s) 770821-CRU-O ; 236109-EJS-N; 372461-Ljqqugkhyvxtv; 051702-Jktemoqxlir, Total; 482932-OMR-E (Total); 432165-Ekgic LDL-P; 031895-ORL Size; 404278-NG-UY Scorewas developed and its performance characteristics determinedby Checkd.In. It has not been cleared or approved by the Foodand Drug Administration.PATIENT WAS FASTINGPERFORMED BY: BN [employer] [id number] BY: NGenTec Uqmpti1774 [facility]day[facility] [id number] Urobilinogen (U) [Mass/Vol] 0.2 mg/dL Normal 0.2-1.0 [facility]; [facility] Internal Medicine Work Phone: Comment on above: Test(s) 264654-YLW-M ; 915703-TSB-K; 706606-Hsegrvibwkama; 284424-Naiidesixxq, Total; 990323-UFQ-M (Total); 142143-Svxjn LDL-P; 862011-KUP Size; 808265-YF-RC Scorewas developed and its performance characteristics determinedby Checkd.In. It has not been cleared or approved by the Foodand Drug Administration.PATIENT WAS FASTINGPERFORMED BY: IP [employer] [id number] BY: [email or web address] [facility] [id number] Urobilinogen Test strip (U) [Mass/Vol] 0.2 mg/dL Normal 0.2-1.0 [facility] Internal Medicine Work Phone: Comment on above: Test(s) 545845-ZWF-P ; 376567-OHU-B; 352533-Kroqjmqlwsohg; 653681-Cavqxyxifpp, Total; 464596-AMF-T (Total); 471572-Rngxj LDL-P; 442977-AOF Size; 605751-RA-AV Scorewas developed and its performance characteristics determinedby Checkd.In. It has not been cleared or approved by the Foodand Drug Administration.PATIENT WAS FASTINGPERFORMED BY: [employer] [address] [id number] BY: [email or web address] [facility] [id number] Blood Glucose , Office ([phone] 2)Ordered By: Ruby Wild on 12-08-2019 Glucose Glucometer (BldC) [Moles/Vol] 124 1 Normal [facility] Internal Medicine Work Phone: HgA1C , Office (99750)Ordere d By: Ruby Wild on 12-08-2019 HbA1c (Bld) [Mass fraction] 5.9 % Normal 4.6 - 7.1 [facility] Work Phone: Blood Glucose , Office ([phone] 2)Ordered By: Manuela Azevedo on 09-01-2019 Glucose Glucometer (BldC) [Moles/Vol] 108 1 Normal [facility] Work Phone: CBC W/AUTO DIFF WBC (00622)O rdered By: Line Dancer on 09-01-2019 Basophils (Bld) [#/Vol] 0.1 {x10E3/uL} Normal 0.0-0.2 [facility] Work Phone: Comment on above: Test(s) 330134-YSS-U ; 543538-ULZ-Q; 036170-LMP-V; 562620-Yrnszfxewiuof; 281070-Xsxcfyshrzn, Total; 251063-VMF-U (Total);802322-Draok LDL-P; 530332-ZQO Size; 919887-HV-NZ Scorewas developed and its performance characteristics determinedby Checkd.In. It has not been cleared or approved by the Foodand Drug Administration.PATIENT WAS FASTINGPERFORMED BY: [employer] [address] [id number] BY: Checkd.In Pmcfwg1145 [facility] [id number] Basophils (Bld) [#/Vol] 0.1 10*3/uL Normal 0.0-0.2 [facility] Work Phone: Comment on above: Test(s) 057831-VIB-T ; 541766-VHW-M; 394594-YWT-G; 158684-Rrjzmrnnhmynx; 768345-Syxlsbyoivj, Total; 283516-QUN-Q (Total);947870-Seqxn LDL-P; 495453-SQF Size; 009905-LB-UV Scorewas developed and its performance characteristics determinedby Checkd.In. It has not been cleared or approved by the Foodand Drug Administration.PATIENT WAS FASTINGPERFORMED BY: [employer] [address] [id number] BY: NGen[employer]ec Uanznt1373 [facility] [id number] Basophils/100 WBC (Bld) 1 % Normal [facility] Work Phone: Comment on above: Test(s) 286346-LQY-I ; 956955-HCF-N; 131176-HYX-W; 143111-Htntqxrtslerf; 668450-Rysuelpnkja, Total; 525718-TBY-L (Total);112372-Jkgue LDL-P; 973681-TET Size; 484842-JH-VZ Scorewas developed and its performance characteristics determinedby Checkd.In. It has not been cleared or approved by the Foodand Drug Administration.PATIENT WAS FASTINGPERFORMED BY: [employer] [address] [id number] BY: [email or web address] [facility]day[facility] [id number] Eosinophils (Bld) [#/Vol] 0.1 {x10E3/uL} Normal 0.0-0.4 [facility] Work Phone: Comment on above: Test(s) 336531-BQW-V ; 135918-ZRQ-P; 480445-NXZ-T; 814921-Kaqxaaomxbwbh; 760323-Yaxexzsmlfi, Total; 059870-SHW-S (Total);417520-Fjspv LDL-P; 997009-OXM Size; 669923-JG-VQ Scorewas developed and its performance characteristics determinedby Checkd.In. It has not been cleared or approved by the Foodand Drug Administration.PATIENT WAS FASTINGPERFORMED BY: [employer] [address] [id number] BY: Nellix Wzyqzq2588 [facility] [id number] Eosinophils (Bld) [#/Vol] 0.1 10*3/uL Normal 0.0-0.4 [facility] Work Phone: Comment on above: Test(s) 824535-QRR-D ; 174733-MPH-G; 699732-MOD-W; 964381-Pfjdvlhtrqgqo; 112450-Rycalqiieym, Total; 465462-KLD-O (Total);188609-Gmeav LDL-P; 045790-ZMZ Size; 445531-RR-NL Scorewas developed and its performance characteristics determinedby Checkd.In. It has not been cleared or approved by the Foodand Drug Administration.PATIENT WAS FASTINGPERFORMED BY: [employer] [address] [id number] BY: [email or web address] [facility] [id number] Eosinophils/100 WBC (Bld) 1 % Normal [facility] Work Phone: Comment on above: Test(s) 075662-TKN-I ; 834896-QQQ-Y; 620805-CJP-E; 630534-Jaoxvtfgicind; 585957-Ezqwmltkhcp, Total; 532279-NJA-G (Total);208553-Tsobv LDL-P; 459151-KXP Size; 055674-KJ-IP Scorewas developed and its performance characteristics determinedby Checkd.In. It has not been cleared or approved by the Foodand Drug Administration.PATIENT WAS FASTINGPERFORMED BY: [employer] [address] [id number] BY: [email or web address] [facility] [id number] Erythrocyte distribution width (RBC) [Ratio] 13.6 % Normal 11.7-15.4 [facility] Work Phone: Comment on above: Test(s) 481903-OJB-B ; 383983-PKE-C; 024981-MAS-A; 796557-Kykcgpiechcuf; 729068-Usfacqutwsi, Total; 151586-FJD-F (Total);842315-Wjokm LDL-P; 083346-LII Size; 622902-TF-TE Scorewas developed and its performance characteristics determinedby Checkd.In. It has not been cleared or approved by the Foodand Drug Administration.PATIENT WAS FASTINGPERFORMED BY: [employer] [address] [id number] BY: [email or web address] [facility] [id number] Hematocrit (Bld) [Volume fraction] 44.3 % Normal 34.0-46.6 [facility] Work Phone: Comment on above: Test(s) 485950-BWT-P ; 808347-DRB-O; 315403-CSQ-D; 239006-Fgxnucyzbthrr; 665731-Mmkceqwbhdl, Total; 548530-BSX-E (Total);864146-Byqzg LDL-P; 871313-GGA Size; 291091-IC-UO Scorewas developed and its performance characteristics determinedby Checkd.In. It has not been cleared or approved by the Foodand Drug Administration.PATIENT WAS FASTINGPERFORMED BY: [employer] [address] [id number] BY: [email or web address] [facility] [id number] Hemoglobin (Bld) [Mass/Vol] 14.5 g/dL Normal 11.1-15.9 [facility] Work Phone: Comment on above: Test(s) 638131-VYO-U ; 358698-NEA-M; 164565-KML-N; 816839-Iyxowpodgahda; 785093-Alvobhsmfli, Total; 038988-VUT-Y (Total);406671-Uzunx LDL-P; 319547-JMW Size; 444940-GN-SA Scorewas developed and its performance characteristics determinedby Checkd.In. It has not been cleared or approved by the Foodand Drug Administration.PATIENT WAS FASTINGPERFORMED BY: [employer] [address] [id number] BY: Agentek Zlycsm8227 [facility] [id number] Immature granulocytes (Bld) [#/Vol] 0.0 {x10E3/uL} Normal 0.0-0.1 [facility] Work Phone: Comment on above: Test(s) 220124-TFL-I ; 048696-JIH-O; 549765-BUT-X; 641226-Yrkkvfxcsetmv; 250338-Aonbigqtgkr, Total; 690713-YUA-D (Total);705337-Caswa LDL-P; 382416-LHM Size; 369783-NA-XW Scorewas developed and its performance characteristics determinedby Checkd.In. It has not been cleared or approved by the Foodand Drug Administration.PATIENT WAS FASTINGPERFORMED BY: [employer] [address] [id number] BY: [facility] [id number] Immature granulocytes (Bld) [#/Vol] 0.0 10*3/uL Normal 0.0-0.1 [facility] Work Phone: Comment on above: Test(s) 955415-FDZ-M ; 313333-BTA-E; 389143-VKX-N; 856990-Yekljrcioccvm; 843113-Fctamcimfvp, Total; 470511-AYA-D (Total);395444-Itbku LDL-P; 232697-IJW Size; 320913-LB-KL Scorewas developed and its performance characteristics determinedby Checkd.In. It has not been cleared or approved by the [employer] Drug Administration.PATIENT WAS FASTINGPERFORMED BY: [employer] [address] [id number] BY: [email or web address] [facility] [id number] Immature granulocytes/100 WBC (Bld) 0 % Normal [facility] Work Phone: Comment on above: Test(s) 640139-VLR-I ; 383376-ASQ-R; 951787-XFZ-C; 534610-Zdiyawzwpcerc; 604754-Wabjhpcyumi, Total; 829220-QVA-F (Total);454532-Jcuxn LDL-P; 937092-CUJ Size; 764926-SU-WR Scorewas developed and its performance characteristics determinedby Checkd.In. It has not been cleared or approved by the Foodand Drug Administration.PATIENT WAS FASTINGPERFORMED BY: [employer] [address] [id number] BY: [email or web address] [facility] [id number] Lymphocytes (Bld) [#/Vol] 1.1 {x10E3/uL} Normal 0.7-3.1 [facility] Work Phone: Comment on above: Test(s) 976050-PCS-N ; 152877-WNM-D; 288769-ZYE-M; 622709-Kkmkzvghzwqsc; 697102-Sqkxrmhfyml, Total; 052563-JWB-T (Total);118757-Swerr LDL-P; 216377-FJP Size; 456935-PZ-WF Scorewas developed and its performance characteristics determinedby Checkd.In. It has not been cleared or approved by the Foodand Drug Administration.PATIENT WAS FASTINGPERFORMED BY: [employer] [address] [id number] BY: Remerge6370 [facility] [id number] Lymphocytes (Bld) [#/Vol] 1.1 10*3/uL Normal 0.7-3.1 [facility] Work Phone: Comment on above: Test(s) 713362-DJA-H ; 303567-BOE-O; 944237-YUL-Q; 519592-Izqqttnavwgmn; 859150-Tyuftzpifqk, Total; 415977-ESW-A (Total);547380-Otfzn LDL-P; 173370-VWO Size; 582055-YM-OY Scorewas developed and its performance characteristics determinedby Checkd.In. It has not been cleared or approved by the Foodand Drug Administration.PATIENT WAS FASTINGPERFORMED BY: Checkd.In [address] [id number] BY: [employer]lin6370 [facility] [id number] Lymphocytes/100 WBC (Bld) 14 % Normal [facility] Work Phone: Comment on above: Test(s) 590046-UES-V ; 003905-TZJ-D; 654670-VKZ-U; 486668-Rmnnqnmmkrlyk; 435953-Tguejxrsbti, Total; 030890-PCB-A (Total);660370-Vcaca LDL-P; 383320-UUD Size; 520307-PJ-AS Scorewas developed and its performance characteristics determinedby Checkd.In. It has not been cleared or approved by the Foodand Drug Administration.PATIENT WAS FASTINGPERFORMED BY: NGenTec[address] [id number] BY: NGenTecOcean Medical CenterZpeugm4184 [facility] [id number] MCH (RBC) [Entitic mass] 28.5 pg Normal 26.6-33.0 [facility] Work Phone: Comment on above: Test(s) 330294-ZXA-Y ; 351065-IAP-Q; 064176-GHN-Q; 087487-Atjrmqfihnvqn; 774861-Icyeyswvirq, Total; 550402-WQD-S (Total);514793-Ynpaz LDL-P; 844705-KYL Size; 257642-SV-DL Scorewas developed and its performance characteristics determinedby Checkd.In. It has not been cleared or approved by the Foodand Drug Administration.PATIENT WAS FASTINGPERFORMED BY: [employer] [address] [id number] BY: NGenTecOcean Medical CenterXqzejo3930 [facility] [id number] MCHC (RBC) [Mass/Vol] 32.7 g/dL Normal 31.5-35.7 [facility] Work Phone: Comment on above: Test(s) 441586-KES-G ; 722067-RQS-Z; 329180-EZR-P; 596381-Qxrcaetcenazo; 115272-Pwquyrayovm, Total; 488149-RKR-H (Total);312712-Npdmx LDL-P; 418399-LVO Size; 987583-FS-HR Scorewas developed and its performance characteristics determinedby Checkd.In. It has not been cleared or approved by the Foodand Drug Administration.PATIENT WAS FASTINGPERFORMED BY: Checkd.In [address] [id number] BY: NGenTecDavid Ville 5733670 [facility] [id number] MCV (RBC) [Entitic vol] 87 fL Normal 79-97 [facility] Work Phone: Comment on above: Test(s) 824070-CBZ-K ; 153562-XLJ-Z; 819729-IWT-G; 974263-Vnahhdffkmkvo; 104774-Jznftfjhhbm, Total; 256568-RFX-O (Total);149757-Bouer LDL-P; 705955-BLT Size; 420758-EB-XD Scorewas developed and its performance characteristics determinedby Checkd.In. It has not been cleared or approved by the Foodand Drug Administration.PATIENT WAS FASTINGPERFORMED BY: IP [employer] [id number] BY: too.[email or web address] Val[place]a [facility] HospitalTreFoil EnergyAtrium Health Pineville [id number] Monocytes (Bld) [#/Vol] 0.4 {x10E3/uL} Normal 0.1-0.9 [facility] Work Phone: Comment on above: Test(s) 864945-GIN-U ; 965817-HVR-N; 460754-LTK-C; 691335-Wpdyxxmkplnbj; 058758-Iitdkegsxbo, Total; 879728-XGZ-U (Total);181248-Vwqrz LDL-P; 772044-UZG Size; 937950-KU-IM Scorewas developed and its performance characteristics determinedby Checkd.In. It has not been cleared or approved by the Foodand Drug Administration.PATIENT WAS FASTINGPERFORMED BY: IP [employer] [id number] BY: Agentek Zwzzlf6594 [facility] [id number] Monocytes (Bld) [#/Vol] 0.4 10*3/uL Normal 0.1-0.9 [facility] Work Phone: Comment on above: Test(s) 183929-GVO-O ; 915461-KEI-B; 912426-IOL-I; 645983-Ymyomkzhemfml; 557923-Jmmfhpdjpxt, Total; 432754-XON-Y (Total);723116-Ogmcm LDL-P; 244002-VIT Size; 942274-ES-PJ Scorewas developed and its performance characteristics determinedby Checkd.In. It has not been cleared or approved by the Foodand Drug Administration.PATIENT WAS FASTINGPERFORMED BY: [employer] [address] [id number] BY: [email or web address] QuerydayAtrium Health Pineville [id number] Monocytes/100 WBC (Bld) 5 % Normal [facility] Work Phone: Comment on above: Test(s) 679746-WJY-K ; 526523-NDP-E; 037637-APB-P; 911883-Quealrewdxsbl; 729815-Npxodkekhuf, Total; 181793-DQA-C (Total);407913-Xxtvo LDL-P; 460876-UWY Size; 033491-RT-ES Scorewas developed and its performance characteristics determinedby Checkd.In. It has not been cleared or approved by the Foodand Drug Administration.PATIENT WAS FASTINGPERFORMED BY: [employer] [address] [id number] BY: [email or web address] QuerydayAtrium Health Pineville [id number] Neutrophils (Bld) [#/Vol] 6.0 {x10E3/uL} Normal 1.4-7.0 [facility] Work Phone: Comment on above: Test(s) 154069-QBW-H ; 380371-YUT-D; 804557-OTT-F; 839400-Vyvqiyvemhgoy; 524686-Otvfxadgvlt, Total; 804372-FCM-N (Total);647635-Nhalr LDL-P; 572691-KQQ Size; 091960-GX-SV Scorewas developed and its performance characteristics determinedby Checkd.In. It has not been cleared or approved by the Foodand Drug Administration.PATIENT WAS FASTINGPERFORMED BY: [employer] [address] [id number] BY: [email or web address] [place] WhoseView.ieAtrium Health Pineville [id number] Neutrophils (Bld) [#/Vol] 6.0 10*3/uL Normal 1.4-7.0 [facility] Work Phone: Comment on above: Test(s) 896491-EZJ-Y ; 201403-LZK-O; 418910-KWS-V; 033212-Jlqukzdrkfwdc; 508436-Zbevzyflsxb, Total; 379911-XBM-G (Total);431592-Axchf LDL-P; 783473-LRD Size; 291058-PT-OZ Scorewas developed and its performance characteristics determinedby Checkd.In. It has not been cleared or approved by the Foodand Drug Administration.PATIENT WAS FASTINGPERFORMED BY: [employer] [place] [address] [id number] BY: [email or web address] [facility] [id number] Neutrophils/100 WBC (Bld) 79 % Normal [facility] Work Phone: Comment on above: Test(s) 727869-ZRT-T ; 734676-GYU-W; 111136-TJB-R; 956606-Qyevtkuhehthq; 733012-Xlsfxsbvaog, Total; 620433-NWZ-I (Total);449466-Ujzpm LDL-P; 379728-RWQ Size; 736497-RU-NP Scorewas developed and its performance characteristics determinedby Checkd.In. It has not been cleared or approved by the Foodand Drug Administration.PATIENT WAS FASTINGPERFORMED BY: IP [employer] [id number] BY: Agentek Dddfzd2975 [facility] [id number] Platelets (Bld) [#/Vol] 356 {x10E3/uL} Normal 150-450 [facility] Work Phone: Comment on above: Test(s) 380815-KJR-Y ; 884245-EPC-A; 961264-IWN-F; 187527-Ofnvabiglxklp; 072217-Lyfxizviazi, Total; 015421-FRG-W (Total);200584-Egtrw LDL-P; 880901-DBC Size; 070468-RV-NO Scorewas developed and its performance characteristics determinedby Checkd.In. It has not been cleared or approved by the Foodand Drug Administration.PATIENT WAS FASTINGPERFORMED BY: tabulaterp [address] [id number] BY: CB [facility] Wkcubo4650 [place]a [facility] [id number] Platelets (Bld) [#/Vol] 356 10*3/uL Normal 150-450 [facility] Internal Medicine Work Phone: Comment on above: Test(s) 478116-QRQ-A ; 816194-EKY-S; 480841-GAK-T; 633109-Cdykcegygkipg; 553495-Vnenduqkafj, Total; 412971-YHH-W (Total);766800-Lnbro LDL-P; 090002-OBF Size; 129957-ME-YF Scorewas developed and its performance characteristics determinedby [employer]. It has not been cleared or approved by the Foodand Drug Administration.PATIENT WAS FASTINGPERFORMED BY: IP [employer] [id number] BY: Nellixrp Wzxaca9085 [place] [facility] [id number] RBC (Bld) [#/Vol] 5.08 {x10E6/uL} Normal 3.77-5.28 [facility] Internal Medicine Work Phone: Comment on above: Test(s) 517301-QCV-I ; 766926-WER-K; 545686-DRZ-M; 188890-Zbjfyllwdlfiw; 383938-Evjommsrveg, Total; 403711-YEW-N (Total);598300-Xakse LDL-P; 729794-FSD Size; 592015-OY-VR Scorewas developed and its performance characteristics determinedby Checkd.In. It has not been cleared or approved by the Foodand Drug Administration.PATIENT WAS FASTINGPERFORMED BY: [employer] LabMyMedLeads.comrp Tlqmstoxur[address] [id number] BY: CB LabMyMedLeads.comrp Mxpwau9387 [facility] [id number] RBC (Bld) [#/Vol] 5.08 10*6/uL Normal 3.77-5.28 [facility] Internal Medicine Work Phone: Comment on above: Test(s) 853473-CWJ-E ; 644618-JCQ-B; 345141-EZC-V; 728876-Khnpqrnwhgpab; 195382-Qhlbsyorubu, Total; 778899-FUP-K (Total);966086-Nfgkd LDL-P; 795872-QLH Size; 478172-NT-OO Scorewas developed and its performance characteristics determinedby Checkd.In. It has not been cleared or approved by the Foodand Drug Administration.PATIENT WAS FASTINGPERFORMED BY: IP [employer] [id number] BY: [email or web address] [facility] [id number] WBC (Bld) [#/Vol] 7.6 {x10E3/uL} Normal 3.4-10.8 [facility] Internal Medicine Work Phone: Comment on above: Test(s) 489790-URD-Q ; 997062-INP-H; 362384-NXI-X; 287351-Etmphmnoaufjk; 810424-Ckljymelezy, Total; 888354-ULA-B (Total);657066-Zydyf LDL-P; 133677-MYV Size; 332079-VG-MK Scorewas developed and its performance characteristics determinedby Checkd.In. It has not been cleared or approved by the Foodand Drug Administration.PATIENT WAS FASTINGPERFORMED BY: IP [employer] [id number] BY: too.[email or web address] [facility] [id number] WBC (Bld) [#/Vol] 7.6 10*3/uL Normal 3.4-10.8 [facility] Internal Medicine Work Phone: Comment on above: Test(s) 338567-YQN-U ; 114249-YDZ-O; 809657-PKK-U; 475916-Fpowvwpovrcgk; 529054-Jlzgewrylxg, Total; 571249-QCU-F (Total);386125-Vbudu LDL-P; 546658-BRF Size; 110006-JM-TQ Scorewas developed and its performance characteristics determinedby Checkd.In. It has not been cleared or approved by the Foodand Drug Administration.PATIENT WAS FASTINGPERFORMED BY: [employer] [address] [id number] BY: too.[email or web address] [facility] [id number] HgA1C , Office ([phone])Ordere d By: Manuela Azevedo on 09-01-2019 HbA1c (Bld) [Mass fraction] 6.0 % Normal 4.6 - 7.1 [facility] Work Phone: METABOLIC PANEL, COMPREHENSI VE ([phone])Ordered By: Line Dancer on 09-01-2019 Albumin [Mass/Vol] 4.7 g/dL Normal 3.8-4.9 [facility] Internal Medicine Work Phone: Comment on above: Test(s) 536124-YFX-F ; 817989-IWH-O; 586208-QSH-V; 712417-Tizahdziuqtoe; 096082-Jfhtzjupner, Total; 281026-LMC-B (Total);558880-Afntj LDL-P; 333485-RYQ Size; 213961-AV-ED Scorewas developed and its performance characteristics determinedby Checkd.In. It has not been cleared or approved by the Foodand Drug Administration.PATIENT WAS FASTINGPERFORMED BY: [employer] [address] [id number] BY: too.[email or web address] [facility] [id number] Albumin/Globulin [Mass ratio] 1.8 {ratio} Normal 1.2-2.2 [facility] Work Phone: Comment on above: Test(s) 389998-SIR-H ; 681640-WUM-U; 897993-JXJ-O; 801308-Kwangomgdehll; 703168-Cuiakucflnu, Total; 098472-UDG-I (Total);193997-Iwkml LDL-P; 838511-ZGG Size; 429610-ZV-BA Scorewas developed and its performance characteristics determinedby Checkd.In. It has not been cleared or approved by the Foodand Drug Administration.PATIENT WAS FASTINGPERFORMED BY: NGenTec[address] [id number] BY: NGenTec Pyycvc3122 [facility] [id number] ALP [Catalytic activity/Vol] 134 [iU]/L Abnormal 39-117 [facility] Work Phone: Comment on above: Test(s) 506881-YCH-B ; 354459-LPI-D; 516181-RFU-Q; 111329-Mocdqgexempta; 588213-Bcgyuvkpgdm, Total; 751334-PXY-S (Total);840732-Mivxs LDL-P; 494943-IHM Size; 748458-ML-MW Scorewas developed and its performance characteristics determinedby Checkd.In. It has not been cleared or approved by the Foodand Drug Administration.PATIENT WAS FASTINGPERFORMED BY: tabulate[address] [id number] BY: NGenTec Woqwqn8148 [place] [facility] [id number] ALP [Catalytic activity/Vol] 134 U/L Abnormal 39-117 [facility] Work Phone: Comment on above: Test(s) 871546-BMV-S ; 136337-TTN-W; 465135-IDQ-B; 737349-Llxdpbovjsvqt; 202296-Xpheenixupr, Total; 744719-RML-E (Total);450496-Lgpmb LDL-P; 042129-CYB Size; 554684-GZ-TK Scorewas developed and its performance characteristics determinedby Checkd.In. It has not been cleared or approved by the Foodand Drug Administration.PATIENT WAS FASTINGPERFORMED BY: NGenTec[address] [id number] BY: NGenTecOcean Medical CenterExrwnq3408 [facility] [id number] ALT [Catalytic activity/Vol] 26 [iU]/L Normal 0-32 [facility] Work Phone: Comment on above: Test(s) 236173-ZHF-O ; 150248-PTN-F; 753562-IZI-J; 828710-Vcfqjpjvrrita; 717510-Sfklvuxyxpq, Total; 926251-OXA-V (Total);976474-Eihrb LDL-P; 643930-KAN Size; 549939-AV-HG Scorewas developed and its performance characteristics determinedby Checkd.In. It has not been cleared or approved by the Foodand Drug Administration.PATIENT WAS FASTINGPERFORMED BY: [employer] [address] [id number] BY: GetPromotdAmerican Healthcare Systems [id number] ALT [Catalytic activity/Vol] 26 U/L Normal 0-32 [facility] Work Phone: Comment on above: Test(s) 785262-UBL-E ; 048113-PRI-Y; 989110-XLW-K; 056587-Xrpoonqtvfwjx; 585639-Tiiuxnbjthu, Total; 290122-LBY-C (Total);335794-Jgtsd LDL-P; 258557-HTV Size; 257985-UN-XA Scorewas developed and its performance characteristics determinedby Checkd.In. It has not been cleared or approved by the Foodand Drug Administration.PATIENT WAS FASTINGPERFORMED BY: Checkd.In [address] [id number] BY: Agentek Dlxfxy2073 [facility] [id number] AST [Catalytic activity/Vol] 23 [iU]/L Normal 0-40 [facility] Work Phone: Comment on above: Test(s) 007509-XTB-T ; 724168-TVE-T; 663585-ZMN-J; 822247-Injioeiqgnmnm; 133437-Pnpmxwqzujv, Total; 636993-YZC-R (Total);478462-Flwil LDL-P; 688584-PSN Size; 142699-AS-BU Scorewas developed and its performance characteristics determinedby Checkd.In. It has not been cleared or approved by the Foodand Drug Administration.PATIENT WAS FASTINGPERFORMED BY: NGenTec[address] [id number] BY: NGenTecPresbyterian Kaseman HospitalHdlwvc9291 [facility] [id number] AST [Catalytic activity/Vol] 23 U/L Normal 0-40 [facility] Work Phone: Comment on above: Test(s) 579310-WYH-V ; 396019-UYY-W; 063050-CAR-V; 248441-Zmjiuklhqmaod; 034415-Jqexppgviun, Total; 997983-UGX-X (Total);724555-Jpgck LDL-P; 511111-HHN Size; 449944-LB-QW Scorewas developed and its performance characteristics determinedby Checkd.In. It has not been cleared or approved by the Foodand Drug Administration.PATIENT WAS FASTINGPERFORMED BY: Checkd.In [address] [id number] BY: NGenTec Lohirq0819 [facility] [id number] Bilirubin [Mass/Vol] mg/dL Normal 0.0-1.2 [facility] Internal Medicine Work Phone: Comment on above: Test(s) 254475-UTE-U ; 028227-FCK-C; 948981-VBI-P; 265848-Udrhrprelxqnd; 073311-Xhvumgakznv, Total; 495020-ZFF-U (Total);459628-Iuauh LDL-P; 199757-AFS Size; 117610-RK-ZM Scorewas developed and its performance characteristics determinedby Checkd.In. It has not been cleared or approved by the Foodand Drug Administration.PATIENT WAS FASTINGPERFORMED BY: NGenTec[address] [id number] BY: NGenTecOcean Medical CenterRziydg8999 [facility] [id number] Bilirubin [Mass/Vol] mg/dL Normal 0.0-1.2 [facility] Internal Medicine Work Phone: Comment on above: Test(s) 290203-XZS-N ; 852661-VAT-Y; 984426-XHZ-V; 666176-Eedypwpedonvn; 176090-Fgfxxeknvlc, Total; 957838-TZL-H (Total);077455-Nwrbb LDL-P; 205513-GZS Size; 416769-CO-PA Scorewas developed and its performance characteristics determinedby Checkd.In. It has not been cleared or approved by the Foodand Drug Administration.PATIENT WAS FASTINGPERFORMED BY: [employer] [address] [id number] BY: Agentek Vtlntt4493 [facility] [id number] Calcium [Mass/Vol] 9.6 mg/dL Normal 8.7-10.2 [facility] Internal Medicine Work Phone: Comment on above: Test(s) 458005-THA-Z ; 305394-YVW-X; 242473-XQK-D; 436625-Ggwbcsglgomte; 640632-Ypinqikqceh, Total; 605460-ESL-C (Total);919969-Cisiq LDL-P; 787269-WIL Size; 652706-AB-BX Scorewas developed and its performance characteristics determinedby Checkd.In. It has not been cleared or approved by the Foodand Drug Administration.PATIENT WAS FASTINGPERFORMED BY: [employer] [address] [id number] BY: Agentek Hkyset4979 [facility] [id number] Chloride [Moles/Vol] 101 mmol/L Normal 96-106 [facility] Internal Medicine Work Phone: Comment on above: Test(s) 555800-DVK-O ; 102295-LBT-K; 698819-SLU-A; 840366-Buqsjxoqsmspd; 847759-Fybmagequiu, Total; 175758-DOW-H (Total);077437-Dzvai LDL-P; 763370-NVD Size; 146177-ZY-XS Scorewas developed and its performance characteristics determinedby Checkd.In. It has not been cleared or approved by the Foodand Drug Administration.PATIENT WAS FASTINGPERFORMED BY: BN [employer]Co[address] [id number] BY: NGenTec Xmadxa2095 [facility] [id number] CO2 [Moles/Vol] 27 mmol/L Normal 20-29 Arti hernandez Internal Medicine Work Phone: Comment on above: Test(s) 401841-ONW-H ; 540699-NSN-J; 065795-OEQ-K; 865596-Uwejhxeuaewwk; 762878-Frfnhtivcnv, Total; 998988-KEC-T (Total);808209-Wfvah LDL-P; 730185-DBN Size; 816311-XT-TV Scorewas developed and its performance characteristics determinedby Checkd.In. It has not been cleared or approved by the Foodand Drug Administration.PATIENT WAS FASTINGPERFORMED BY: [employer] [address] [id number] BY: too.me6370 [facility] [id number] Creatinine [Mass/Vol] 0.82 mg/dL Normal 0.57-1.00 [facility] Work Phone: Comment on above: Test(s) 406864-VEN-G ; 155830-HSW-F; 903789-VUE-J; 358947-Vyltskptvswdg; 231179-Dqknizyyhqv, Total; 885607-GZE-B (Total);311259-Xofsm LDL-P; 032610-RHU Size; 402645-HT-WW Scorewas developed and its performance characteristics determinedby Checkd.In. It has not been cleared or approved by the Foodand Drug Administration.PATIENT WAS FASTINGPERFORMED BY: [employer] [address] [id number] BY: Lyftlin6370 [facility] [id number] GFR/1.73 sq M.predicted among blacks CKD-EPI (S/P/Bld) [Vol rate/Area] 93 mL/min/1.73 Normal [facility] Work Phone: Comment on above: Test(s) 127920-ELP-V ; 163392-AAA-A; 540479-STW-G; 061052-Qbeigruysolkt; 651103-Uqlrlwewfru, Total; 799618-WQH-V (Total);433143-Rhwye LDL-P; 859667-GVV Size; 380400-PE-SL Scorewas developed and its performance characteristics determinedby Checkd.In. It has not been cleared or approved by the Foodand Drug Administration.PATIENT WAS FASTINGPERFORMED BY: Checkd.In [address] [id number] BY: Checkd.In Boxlkg5943 [facility] [id number] GFR/1.73 sq M.predicted among non-blacks CKD-EPI (S/P/Bld) [Vol rate/Area] 81 mL/min/1.73 Normal [facility] Work Phone: Comment on above: Test(s) 325640-JXW-T ; 753885-KZG-I; 253362-FDI-O; 819994-Yeuakfifgyzmj; 796080-Aalbasrhpht, Total; 333469-FEA-D (Total);477641-Kkfbz LDL-P; 766223-LCE Size; 130413-FK-SN Scorewas developed and its performance characteristics determinedby Checkd.In. It has not been cleared or approved by the Foodand Drug Administration.PATIENT WAS FASTINGPERFORMED BY: Checkd.In [address] [id number] BY: Checkd.In Qjrazn4657 [facility] [id number] Globulin (S) [Mass/Vol] 2.6 g/dL Normal 1.5-4.5 [facility] Work Phone: Comment on above: Test(s) 956100-UZW-Z ; 222345-SQD-D; 863803-MLQ-H; 001243-Gkqxtbpzdhhye; 923583-Nvslqujrbsa, Total; 611530-SDD-T (Total);118585-Tysld LDL-P; 440127-YVI Size; 980425-ZM-RE Scorewas developed and its performance characteristics determinedby Checkd.In. It has not been cleared or approved by the Foodand Drug Administration.PATIENT WAS FASTINGPERFORMED BY: [employer] [address] [id number] BY: Nellix Idxhof3836 [place] WhoseView.ieAtrium Health Pineville [id number] Glucose [Mass/Vol] 100 mg/dL Abnormal 65-99 [facility] Internal Medicine Work Phone: Comment on above: Test(s) 890753-QKO-Y ; 252841-KME-T; 305613-IJP-S; 973765-Rfvvsncjbmjhx; 888578-Ztnaizczgte, Total; 117995-YFG-V (Total);876960-Ngxrn LDL-P; 994345-CMY Size; 564462-VJ-PQ Scorewas developed and its performance characteristics determinedby Checkd.In. It has not been cleared or approved by the Foodand Drug Administration.PATIENT WAS FASTINGPERFORMED BY: [employer] [address] [id number] BY: too.me6370 [facility] [id number] Potassium [Moles/Vol] 4.9 mmol/L Normal 3.5-5.2 [facility] Internal Medicine Work Phone: Comment on above: Test(s) 601003-YRM-U ; 838795-MCJ-Z; 182612-MAX-G; 439550-Gmfffopnyfqyh; 924113-Sogoegawbkm, Total; 438205-BAJ-A (Total);655008-Djrek LDL-P; 776491-GIP Size; 368022-LL-NI Scorewas developed and its performance characteristics determinedby Checkd.In. It has not been cleared or approved by the Foodand Drug Administration.PATIENT WAS FASTINGPERFORMED BY: [employer] [address] [id number] BY: Nellix Uphdgh2262 [facility] [id number] Protein [Mass/Vol] 7.3 g/dL Normal 6.0-8.5 [facility] Internal Medicine Work Phone: Comment on above: Test(s) 518257-QQV-E ; 322881-UBC-U; 706647-MRJ-O; 201742-Baencayevqesn; 761836-Ogchefoshab, Total; 780176-BMY-K (Total);645458-Ghjyy LDL-P; 762766-DFR Size; 098899-SW-ZG Scorewas developed and its performance characteristics determinedby Checkd.In. It has not been cleared or approved by the Foodand Drug Administration.PATIENT WAS FASTINGPERFORMED BY: [employer] [address] [id number] BY: iloho70 [facility] [id number] Sodium [Moles/Vol] 143 mmol/L Normal 134-144 [facility] Internal Medicine Work Phone: Comment on above: Test(s) 525516-XKC-B ; 261242-XJT-Q; 614708-WKK-G; 878324-Whmyeofwhsamf; 184473-Ddiqmyyjuac, Total; 460016-RXB-Q (Total);968570-Yifrh LDL-P; 327364-ATU Size; 177308-QJ-YS Scorewas developed and its performance characteristics determinedby Checkd.In. It has not been cleared or approved by the Foodand Drug Administration.PATIENT WAS FASTINGPERFORMED BY: [employer] [address] [id number] BY: too.me6370 [facility] [id number] Urea nitrogen [Mass/Vol] 15 mg/dL Normal 6-24 [facility] Internal Medicine Work Phone: Comment on above: Test(s) 622909-XSN-H ; 401854-URC-C; 336874-NQL-R; 074566-Jjlrfzzcibvzg; 346861-Kftdzynjlzk, Total; 509675-LYT-Y (Total);149822-Tfsgy LDL-P; 954407-RGR Size; 626927-GJ-GW Scorewas developed and its performance characteristics determinedby Checkd.In. It has not been cleared or approved by the Foodand Drug Administration.PATIENT WAS FASTINGPERFORMED BY: BN [employer]Co[address] [id number] BY: Remerge6370 QuerydayAtrium Health Pineville [id number] Urea nitrogen/Creatinine [Mass ratio] 18 mg/mg Normal 9-23 [facility] Work Phone: Comment on above: Test(s) 639228-FAC-X ; 919016-EOL-R; 827974-WVL-Q; 443447-Efykismudkykm; 547644-Lyjcbdanpoi, Total; 621382-PCY-O (Total);597210-Hpqgd LDL-P; 368239-TLR Size; 894854-BO-CH Scorewas developed and its performance characteristics determinedby Checkd.In. It has not been cleared or approved by the Foodand Drug Administration.PATIENT WAS FASTINGPERFORMED BY: IP Commerce[address] [id number] BY: [email or web address] [place] [facility] [id number] MICROALBUMINOrdered By: Syst em Hoop Coiling Machine Operator on 09-01-2019 Albumin DL <= 20 mg/L (U) [Mass/Vol] 6.3 ug/mL Normal Comprehensiv e [facility] Work Phone: Comment on above: Test(s) 169002-LHW-L ; 044382-AYM-E; 894216-DTC-G; 175536-Cjaohictcndao; 992174-Vqzpykbhjjh, Total; 347560-JGM-Q (Total);407149-Njnww LDL-P; 769070-JVK Size; 167574-WT-XT Scorewas developed and its performance characteristics determinedby [employer]. It has not been cleared or approved by the Foodand Drug Administration.PATIENT WAS FASTINGPERFORMED BY: [email or web address] [address] [id number] BY: [email or web address] [facility] [id number] Albumin/Creatinine (U) [Mass ratio] 4 {mg/g_creat} Normal 0-29 [facility] Work Phone: Comment on above: Normal: 0 - 29 Moder ately increased: 30 - 300 Severely increased: >300 Please note reference interval change Test(s) 724203-WCV-B ; 739285-NCZ-M; 328443-YTW-F; 407212-Tdeytygbijhxg; 576101-Yyfwulmuorw, Total; 835862-ZJF-V (Total);477180-Ejzob LDL-P; 991127-FPE Size; 667867-KY-QD Scorewas developed and its performance characteristics determinedby Checkd.In. It has not been cleared or approved by the Foodand Drug Administration.PATIENT WAS FASTINGPERFORMED BY: IP Commerce[address] [id number] BY: OxagenAtrium Health [facility]ville [id number] Creatinine (U) [Mass/Vol] 141.6 mg/dL Normal [facility] Work Phone: Comment on above: Test(s) 414123-CVC-F ; 881600-YOM-O; 752630-OUP-I; 845218-Vrvafwkoxddek; 845579-Jepecpbpvnx, Total; 260136-JSD-X (Total);864886-Tzood LDL-P; 528720-KAB Size; 098092-RL-RH Scorewas developed and its performance characteristics determinedby Checkd.In. It has not been cleared or approved by the Foodand Drug Administration.PATIENT WAS FASTINGPERFORMED BY: [employer] [address] [id number] BY: [email or web address] [facility] [id number] NMR Profile (67441)Ordered B y: Line Dancer on 09-01-2019 Cholesterol [Mass/Vol] 244 mg/dL Abnormal 100-199 [facility] Work Phone: Comment on above: Test(s) 913875-BZD-W ; 109297-VVJ-J; 861551-ISJ-U; 605370-Iojpjepynpahm; 483051-Bwjbmnnbszv, Total; 091017-GNK-M (Total);486171-Leyaa LDL-P; 870354-AGA Size; 388996-RK-UH Scorewas developed and its performance characteristics determinedby Checkd.In. It has not been cleared or approved by the Foodand Drug Administration.PATIENT WAS FASTINGPERFORMED BY: [employer] [address] [id number] BY: NGenTecPresbyterian Kaseman HospitalZfzrla4621 [facility] [id number] Cholesterol in HDL [Mass/Vol] 86 mg/dL Normal [facility] Work Phone: Comment on above: Test(s) 621441-ZLK-K ; 070576-FWU-K; 571981-QDU-Z; 004155-Uwjdeiebdgorg; 372043-Zajfhdfezou, Total; 255849-LSA-M (Total);718962-Ewdta LDL-P; 174163-OVQ Size; 215655-LT-FR Scorewas developed and its performance characteristics determinedby Checkd.In. It has not been cleared or approved by the Foodand Drug Administration.PATIENT WAS FASTINGPERFORMED BY: [employer] [address] [id number] BY: [email or web address] [facility] [id number] Lipoprotein.alpha [Moles/Vol] 41.5 umol/L Normal [facility] Work Phone: Comment on above: Test(s) 594876-YHC-I ; 773449-VBC-N; 811735-SIB-D; 038949-Fyxlnhizcwuec; 407056-Qvfpsucroht, Total; 707344-RJB-A (Total);991598-Xooeu LDL-P; 752203-SVZ Size; 524808-RG-MR Scorewas developed and its performance characteristics determinedby Checkd.In. It has not been cleared or approved by the Foodand Drug Administration.PATIENT WAS FASTINGPERFORMED BY: [employer] [address] [id number] BY: NellixOcean Medical CenterEqpjri1303 [facility] [id number] Lipoprotein.beta.sub particle [Entitic length] 21.6 nm Normal [facility] Work Phone: Comment on above: INTERPRETATIVE INFORMATION PARTICLE CONCENTRATION AND SIZE <--Lower CVD Risk Higher CVD Risk--> LDL AND HDL PARTICLES Percentile in Reference Population HDL-P (total) High 75th 50th 25th Low >34.9 34.9 30.5 26.7 <26.7 . Small LDL-P Low 25th 50th 75th High <117 117 527 839 >839 . LDL Size <-Large (Pattern A)-> <-Small (Pattern B)-> 23.0 20.6 20.5 19.0 Small LDL-P and LDL Size are associated with CVD risk, but not afterLDL-P is taken into account. Test(s) 112216-DFO-E ; 759852-WNF-O; 852110-FKF-V; 284707-Okrefudmvfdpm; 930147-Pqiubaqboze, Total; 260036-QKU-E (Total);196515-Beomc LDL-P; 144334-XBH Size; 672368-VV-AE Scorewas developed and its performance characteristics determinedby Checkd.In. It has not been cleared or approved by the Foodand Drug Administration.PATIENT WAS FASTINGPERFORMED BY: [employer]Co[address] [id number] BY: LabCoOcean Medical CenterVbhwbe1509 [facility] [id number] Lipoprotein.beta.sub particle [Moles/Vol] 1359 nmol/L Abnormal Comprehensi ve Internal Medicine Work Phone: Comment on above: Low < 1000 Moderate 1000 - 1299 Borderline-High 1300 - 1599 High 1600 - 2000 Very High > 2000 Test(s) 868521-JKO-Z ; 890826-HHC-U; 337706-TBG-X; 468474-Avmaopemwkbse; 151074-Jxkasuwsdkw, Total; 961359-EMM-U (Total);971490-Mjhtq LDL-P; 365185-GYP Size; 961243-ZY-QK Scorewas developed and its performance characteristics determinedby Checkd.In. It has not been cleared or approved by the Foodand Drug Administration.PATIENT WAS FASTINGPERFORMED BY: [employer] [address] [id number] BY: [email or web address] [facility] [id number] Lipoprotein.beta.sub particle.small [Moles/Vol] 267 nmol/L Normal [facility] Work Phone: Comment on above: Test(s) 547379-IIN-X ; 386719-ATE-E; 628710-LTQ-C; 244920-Iqmkxfjwfpyfj; 171317-Aswpkyirxih, Total; 254215-ZFF-L (Total);371200-Agcgi LDL-P; 534718-SRP Size; 379310-WX-CK Scorewas developed and its performance characteristics determinedby Checkd.In. It has not been cleared or approved by the Foodand Drug Administration.PATIENT WAS FASTINGPERFORMED BY: [employer] [address] [id number] BY: Agentek Ugxykv8740 [facility] [id number] Triglyceride [Mass/Vol] 63 mg/dL Normal 0-149 [facility] Work Phone: Comment on above: Test(s) 004731-UTQ-R ; 291233-DCY-S; 351818-NYB-J; 273388-Rsincfeduzdto; 528704-Shhsxnhbmio, Total; 906479-CJS-J (Total);766522-Ytncm LDL-P; 399754-VBO Size; 427674-RC-DV Scorewas developed and its performance characteristics determinedby Checkd.In. It has not been cleared or approved by the Foodand Drug Administration.PATIENT WAS FASTINGPERFORMED BY: [employer] [address] [id number] BY: Agentek Ufjhmk6416 [facility] [id number] NMR Profile (43027) 145 mg/dL Abnormal 0-99 [facility] Centerensive [facility] Work Phone: Comment on above: . Optimal < 100 Abov e optimal 100 - 129 Borderline 130 - 159 High 160 - 189 Very high > 189 .LDL-C is inaccurate if patient is non-fasting. Test(s) 207108-EGQ-A ; 469885-KIQ-J; 368850-YOP-F; 587876-Klqfwffstxynx; 473284-Hvmqylhqbfz, Total; 889346-AYV-D (Total);738703-Bdgww LDL-P; 729848-DFZ Size; 751262-IE-OH Scorewas developed and its performance characteristics determinedby Checkd.In. It has not been cleared or approved by the Foodand Drug Administration.PATIENT WAS FASTINGPERFORMED BY: NGenTec[address] [id number] BY: Checkd.In Cmhnrr5746 [facility] [id number] NMR Profile (12851) 86 mg/dL Normal Compr ehensive Internal Medicine; [facility] Work Phone: NMR Profile (02534) 63 mg/dL Normal 0-149 [facility] ehensive Internal Medicine; [facility] Work Phone: NMR Profile (01797) 244 mg/dL Abnormal 100-199 [facility] ehensive Internal Medicine; [facility] Work Phone: TSH (07003)Ordered By: Hellen lopes Hoop Coiling Machine Operator on 09-01-2019 TSH Qn 1.010 {uIU/mL} Normal 0.450-4.50 0 [facility] Work Phone: Comment on above: Test(s) 611945-ZUU-S ; 054634-TFH-I; 504607-AHE-N; 155476-Bnkqpifxcylfn; 815302-Xxorkvroumb, Total; 539384-JXW-U (Total);831638-Lrmyu LDL-P; 349789-XNR Size; 611182-MO-CQ Scorewas developed and its performance characteristics determinedby Checkd.In. It has not been cleared or approved by the Foodand Drug Administration.PATIENT WAS FASTINGPERFORMED BY: [employer] [address] [id number] BY: NGenTec Hlefqh6633 QuerydayAt[facility] Health [facility] [id number] URINALYSIS, W/ MICRO (38400) Ordered By: Line Dancer on 09-01-2019 Appearance (U) Cloudy Abnormal Comprehens william Internal Medicine Work Phone: Comment on above: Test(s) 202594-GHM-S ; 245852-GHG-H; 869139-QIZ-L; 441350-Lvsplheqghdlj; 032481-Leacpkugwok, Total; 212057-QYZ-U (Total);279525-Qxaij LDL-P; 137773-BRE Size; 997003-PL-AO Scorewas developed and its performance characteristics determinedby Checkd.In. It has not been cleared or approved by the Foodand Drug Administration.PATIENT WAS FASTINGPERFORMED BY: IP Commerce[address] [id number] BY: [email or web address] [place] WhoseView.ieAtrium Health [facility]ville [id number] Bilirubin Ql (U) Negative Normal Comprehe nsive Internal Medicine Work Phone: Comment on above: Test(s) 550055-QGC-I ; 492818-UAD-L; 439526-FWQ-N; 736014-Pwijjuhgezium; 361316-Tsjlquqodty, Total; 799146-CTH-T (Total);405782-Edmzh LDL-P; 871441-PIW Size; 835591-DS-GY Scorewas developed and its performance characteristics determinedby Checkd.In. It has not been cleared or approved by the Foodand Drug Administration.PATIENT WAS FASTINGPERFORMED BY: [employer] [address] [id number] BY: NGenTecOcean Medical CenterZvujhr3121 [facility] [id number] Bilirubin Ql (U) Negative Normal Comprehe nsive Internal Medicine Work Phone: Comment on above: Test(s) 866530-QZU-D ; 272679-HGS-A; 332468-GTL-P; 626072-Xyhmfhnbgygdo; 511304-Wfgsvwnsozk, Total; 623615-KVS-V (Total);679422-Hsrkj LDL-P; 760703-TVN Size; 713407-FB-LW Scorewas developed and its performance characteristics determinedby Checkd.In. It has not been cleared or approved by the Foodand Drug Administration.PATIENT WAS FASTINGPERFORMED BY: IP Commerce[address] [id number] BY: [email or web address] [facility] [id number] Color (U) Yellow Normal [facility] Internal Medicine Work Phone: Comment on above: Test(s) 791950-BSD-B ; 141622-OZF-K; 424938-RHL-Q; 834029-Pnojpmlbstcgv; 433546-Bvpxdsfafhb, Total; 038995-JCE-D (Total);379149-Xrwbo LDL-P; 461475-ZDE Size; 742104-UJ-BM Scorewas developed and its performance characteristics determinedby Checkd.In. It has not been cleared or approved by the Foodand Drug Administration.PATIENT WAS FASTINGPERFORMED BY: [employer] [address] [id number] BY: Agentek Wwyibn9263 [facility] [id number] Glucose Ql (U) Negative Normal [facility] Internal Medicine Work Phone: Comment on above: Test(s) 104087-WJN-A ; 241881-PHH-H; 431235-RGF-K; 771065-Wjrytwpojqyix; 891694-Algfoomukaj, Total; 895752-CTD-F (Total);763216-Ytrmm LDL-P; 294324-VTZ Size; 968484-KH-MS Scorewas developed and its performance characteristics determinedby Checkd.In. It has not been cleared or approved by the Foodand Drug Administration.PATIENT WAS FASTINGPERFORMED BY: IP Commerce[address] [id number] BY: Agentek Kyckfk2745 [facility] [id number] Glucose Ql (U) Negative Normal Comprehens william Internal Medicine Work Phone: Comment on above: Test(s) 200236-UUF-W ; 721548-CNP-M; 795986-AIJ-M; 984033-Jmtltfeqtipal; 763074-Iocxaxncrjl, Total; 377986-MMV-S (Total);220021-Fgzem LDL-P; 850817-HPB Size; 646321-PO-HY Scorewas developed and its performance characteristics determinedby Checkd.In. It has not been cleared or approved by the Foodand Drug Administration.PATIENT WAS FASTINGPERFORMED BY: [employer] [address] [id number] BY: Agentek Tegftx7528 [facility] [id number] Hemoglobin Ql (U) Negative Normal Compreh ensive Internal Medicine Work Phone: Comment on above: Test(s) 520740-HLK-Y ; 704988-XPT-Y; 751496-GXV-A; 675370-Ddpvxirrxktww; 147443-Ivbempjwwym, Total; 355161-LDW-N (Total);706607-Dogor LDL-P; 935983-ZFL Size; 718272-YM-ES Scorewas developed and its performance characteristics determinedby Checkd.In. It has not been cleared or approved by the Foodand Drug Administration.PATIENT WAS FASTINGPERFORMED BY: [employer] [address] [id number] BY: Agentek Evtsep7166 [facility] [id number] Hemoglobin Ql (U) Negative Normal Compreh ensive Internal Medicine Work Phone: Comment on above: Test(s) 986878-MTC-T ; 494951-JBC-E; 994311-KSC-B; 534248-Udrcejbdyjbry; 506249-Memzgepawpx, Total; 198373-VSD-N (Total);268568-Ijkar LDL-P; 449441-PAV Size; 006862-EM-PT Scorewas developed and its performance characteristics determinedby Checkd.In. It has not been cleared or approved by the Foodand Drug Administration.PATIENT WAS FASTINGPERFORMED BY: NGenTec[address] [id number] BY: NGenTecOcean Medical CenterPrcasv0579 [facility] [id number] Ketones Ql (U) Negative Normal Comprehens william Internal Medicine Work Phone: Comment on above: Test(s) 913730-PVC-I ; 377361-JLG-M; 364473-VYQ-Q; 325677-Zeheaesstrtsj; 118983-Ndsknlyifrv, Total; 407088-KPO-Q (Total);851925-Ceogg LDL-P; 819411-HJA Size; 264023-RO-SZ Scorewas developed and its performance characteristics determinedby Checkd.In. It has not been cleared or approved by the Foodand Drug Administration.PATIENT WAS FASTINGPERFORMED BY: [employer] [address] [id number] BY: [email or web address] [facility] [id number] Ketones Ql (U) Negative Normal [facility] Internal Medicine Work Phone: Comment on above: Test(s) 036999-PTW-Q ; 104217-BGE-E; 845308-TTB-S; 878376-Lbymrjibuwasy; 849290-Zwvmjhazqfd, Total; 629172-BGS-G (Total);573539-Okkqd LDL-P; 015719-YNT Size; 560585-VP-LE Scorewas developed and its performance characteristics determinedby Checkd.In. It has not been cleared or approved by the Foodand Drug Administration.PATIENT WAS FASTINGPERFORMED BY: tabulate[address] [id number] BY: NGenTecOcean Medical CenterEkggjl9732 [facility] [id number] Leukocyte esterase Test strip Ql (U) Negative Normal [facility] Work Phone: Comment on above: Test(s) 206276-UPP-K ; 220191-WKW-X; 831841-TTF-N; 451715-Mpqqliqipbzcm; 517905-Izsjsjpehep, Total; 617019-JAE-M (Total);815478-Nporc LDL-P; 043463-UVE Size; 714095-NR-ER Scorewas developed and its performance characteristics determinedby Checkd.In. It has not been cleared or approved by the Foodand Drug Administration.PATIENT WAS FASTINGPERFORMED BY: IP Commerce[address] [id number] BY: [email or web address] [facility] [id number] Leukocyte esterase Test strip Ql (U) Negative Normal [facility] Work Phone: Comment on above: Test(s) 859708-WIK-J ; 078847-FJR-M; 165085-TVH-O; 428811-Lalvqajdkoaup; 005948-Okhutpizvlu, Total; 651510-JBF-O (Total);282865-Fpwmx LDL-P; 044995-KMB Size; 690379-DM-YE Scorewas developed and its performance characteristics determinedby Checkd.In. It has not been cleared or approved by the Foodand Drug Administration.PATIENT WAS FASTINGPERFORMED BY: IP Commerce[address] [id number] BY: [email or web address] [facility] [id number] Microscopic observation LM Nom (Urine sed) See below: Normal [facility] Work Phone: Comment on above: Microscopic was cesario cated and was performed. Test(s) 009003-INI-I ; 511551-JHW-K; 787552-JGX-N; 100498-Rgwrvswytuath; 937302-Bwybeuxrpjn, Total; 863999-ABJ-B (Total);959533-Jamga LDL-P; 969073-GQK Size; 228941-BL-YB Scorewas developed and its performance characteristics determinedby Checkd.In. It has not been cleared or approved by the Foodand Drug Administration.PATIENT WAS FASTINGPERFORMED BY: IP Commerce[address] [id number] BY: Agentek Okalxy5209 [facility] [id number] Microscopic observation LM Nom (Urine sed) MICRON Normal [facility] Work Phone: Comment on above: Microscopic follows if indicated. Test(s) 688869-MUS-K ; 279554-TGW-E; 024204-AIF-U; 111620-Wxnphmpfmfmva; 361866-Kgvjzvcujyf, Total; 516751-TVC-N (Total);835907-Snovt LDL-P; 415897-QCN Size; 673911-UZ-KF Scorewas developed and its performance characteristics determinedby Checkd.In. It has not been cleared or approved by the Foodand Drug Administration.PATIENT WAS FASTINGPERFORMED BY: [employer] [address] [id number] BY: [email or web address] [facility] [id number] Nitrite Ql (U) Negative Normal [facility] Internal Medicine Work Phone: Comment on above: Test(s) 645393-APR-T ; 055721-WJE-O; 359759-RUU-Y; 817102-Txrzmxnjweghk; 779020-Egrsoitfkhs, Total; 667107-YMF-B (Total);835069-Hljyo LDL-P; 811350-CRM Size; 578522-UB-GX Scorewas developed and its performance characteristics determinedby Checkd.In. It has not been cleared or approved by the Foodand Drug Administration.PATIENT WAS FASTINGPERFORMED BY: [employer] [address] [id number] BY: Agentek Kyaecs1099 [facility] [id number] Nitrite Ql (U) Negative Normal Comprehens william Internal Medicine Work Phone: Comment on above: Test(s) 886705-TMA-Y ; 521909-FYR-Q; 613035-DLZ-Y; 627556-Vnnvrkfriomrj; 187825-Pivwazsyyjm, Total; 703456-VCB-I (Total);036531-Rsido LDL-P; 490123-ZOI Size; 662802-NM-QQ Scorewas developed and its performance characteristics determinedby Checkd.In. It has not been cleared or approved by the Foodand Drug Administration.PATIENT WAS FASTINGPERFORMED BY: Checkd.In [address] [id number] BY: NGenTec Meyqzk5218 RevcasterAmerican [facility] Systems [id number] pH (U) 7.0 [pH] Normal 5.0-7.5 [facility] Internal Medicine Work Phone: Comment on above: Test(s) 630416-YEJ-I ; 899053-VKE-N; 809148-SQB-R; 690717-Bihamnziaznpr; 598884-Xmpoorejgbl, Total; 600442-ZNS-O (Total);387974-Egxdf LDL-P; 694966-RHE Size; 942965-YV-MG Scorewas developed and its performance characteristics determinedby Checkd.In. It has not been cleared or approved by the Foodand Drug Administration.PATIENT WAS FASTINGPERFORMED BY: [employer] [address] [id number] BY: [email or web address] QuerydayAt[facility] Health [facility] [id number] Protein Ql (U) Negative Normal [facility] Internal Medicine Work Phone: Comment on above: Test(s) 138455-ZBJ-Z ; 605167-ULR-J; 226365-FCE-Q; 321982-Rherysvflpber; 852054-Ngtsaxtuygm, Total; 791030-MAW-C (Total);317496-Exhrl LDL-P; 380258-CXJ Size; 201960-OD-MA Scorewas developed and its performance characteristics determinedby Checkd.In. It has not been cleared or approved by the Foodand Drug Administration.PATIENT WAS FASTINGPERFORMED BY: NGenTec[address] [id number] BY: NellixOcean Medical CenterRozwcr4873 [place] [facility] WorldAmerican Healthcare Systems [id number] Protein Ql (U) Negative Normal Comprehens william Internal Medicine Work Phone: Comment on above: Test(s) 355578-EIP-W ; 536781-EAQ-B; 999633-ADQ-E; 141342-Gqgkutismzqyu; 259145-Yvjgnobvnje, Total; 866164-SEB-Y (Total);460731-Bkdrk LDL-P; 365793-JWS Size; 347049-KH-RZ Scorewas developed and its performance characteristics determinedby Checkd.In. It has not been cleared or approved by the Foodand Drug Administration.PATIENT WAS FASTINGPERFORMED BY: [employer] [address] [id number] BY: [email or web address] RevcasterAmerican Healthcare Systems [id number] Specific gravity (U) [Rel density] 1.020 1 Normal 1.005-1.03 0 [facility] Internal Medicine Work Phone: Comment on above: Test(s) 741001-YVC-R ; 617262-RAR-W; 102823-OKP-G; 291731-Jfhrsfuhenqii; 476231-Zlhybkhrpcc, Total; 189131-GXN-Q (Total);835775-Ubojz LDL-P; 672178-NEQ Size; 431322-TM-PB Scorewas developed and its performance characteristics determinedby Checkd.In. It has not been cleared or approved by the Foodand Drug Administration.PATIENT WAS FASTINGPERFORMED BY: [employer] [address] [id number] BY: [email or web address] [facility] [id number] Urobilinogen (U) [Mass/Vol] 0.2 mg/dL Normal 0.2-1.0 [facility] Work Phone: Comment on above: Test(s) 288885-ERS-I ; 061663-TTC-Y; 704130-JYM-L; 709798-Upiunymrxzpvt; 335095-Ffhrxcdypfa, Total; 617044-WXZ-I (Total);755410-Abyvy LDL-P; 613871-RMT Size; 766366-WO-KD Scorewas developed and its performance characteristics determinedby Checkd.In. It has not been cleared or approved by the Foodand Drug Administration.PATIENT WAS FASTINGPERFORMED BY: IP Commerce[address] [id number] BY: [email or web address] QuerydayAtrium Health [facility]ville [id number] Urobilinogen Test strip (U) [Mass/Vol] 0.2 mg/dL Normal 0.2-1.0 [facility] Internal Medicine Work Phone: Comment on above: Test(s) 845450-GFX-O ; 424823-ESE-C; 464666-EUR-B; 568259-Qieunetfcodyl; 129622-Nylhjcymodp, Total; 374566-YPX-B (Total);265043-Ppjuk LDL-P; 223394-FKQ Size; 434299-UU-JO Scorewas developed and its performance characteristics determinedby Checkd.In. It has not been cleared or approved by the Foodand Drug Administration.PATIENT WAS FASTINGPERFORMED BY: IP Commerceton1447 [facility] [id number] BY: [email or web address] QuerydayAtrium Health [facility]ville [id number] VITAMIN B-12 (CYANOCOBALAMIN ) (99899)Ordered By: Line Dancer on 09-01-2019 Cobalamin (Vitamin B12) [Mass/Vol] 729 pg/mL Normal 232-1245 [facility] Internal Medicine Work Phone: Comment on above: Test(s) 261118-KBD-Z ; 622701-WSS-R; 458396-BAZ-Y; 934377-Dotqassmltllb; 661595-Nqayjwhtmfm, Total; 368859-GSW-J (Total);260027-Rmdlr LDL-P; 836202-SBX Size; 934847-IF-FM Scorewas developed and its performance characteristics determinedby Checkd.In. It has not been cleared or approved by the Foodand Drug Administration.PATIENT WAS FASTINGPERFORMED BY: [employer] Egkxdnjrfo2587 [facility] [id number] BY: [email or web address] QuerydayAtrium Health [facility] [id number] Blood Glucose , Office ([phone])Ordered By: Daphne Serna on 04-29-2019 Glucose Glucometer (BldC) [Moles/Vol] 93 1 Normal [facility] Work Phone: HgA1C , Office (95183)Ordere d By: Juan Chan on 04-29-2019 HbA1c (Bld) [Mass fraction] 5.5 % Normal 4.6 - 7.1 [facility] Work Phone: CBC WITH MANUAL DIFF (15760) Ordered By: Line Dancer on 12-17-2018 Basophils (Bld) [#/Vol] 0.0 {x10E3/uL} Normal 0.0-0.2 [facility] Work Phone: Comment on above: PATIENT WAS FASTINGP ERFORMED BY: [employer] [address] [id number] BY: [email or web address] [facility] [id number] Basophils (Bld) [#/Vol] 0.0 10*3/uL Normal 0.0-0.2 [facility] Work Phone: Comment on above: PATIENT WAS FASTINGP ERFORMED BY: [employer] [address] [id number] BY: [email or web address] [facility] [id number] Basophils/100 WBC (Bld) 1 % Normal [facility] Work Phone: Comment on above: PATIENT WAS FASTINGP ERFORMED BY: IP Commerce[address] [id number] BY: Lyftlin6370 [facility] [id number] Eosinophils (Bld) [#/Vol] 0.0 {x10E3/uL} Normal 0.0-0.4 [facility] Work Phone: Comment on above: PATIENT WAS FASTINGP ERFORMED BY: [employer] [address] [id number] BY: [employer] Ltkdyb9239 [place] RoadDublin [place] [id number] Eosinophils (Bld) [#/Vol] 0.0 10*3/uL Normal 0.0-0.4 [facility] Work Phone: Comment on above: PATIENT WAS FASTINGP ERFORMED BY: [address] [id number] BY: TAVIA [facility] Ueomja5358 [address]a RoadDublin [place] [id number] Eosinophils/100 WBC (Bld) 1 % Normal [facility] Work Phone: Comment on above: PATIENT WAS FASTINGP ERFORMED BY: [employer] [id number] BY: TAVIA [employer] Jblelk3657 Valenzuela RoadAmerican Healthcare Systems [id number] Erythrocyte distribution width (RBC) [Ratio] 12.8 % Normal 12.3-15.4 [facility] Work Phone: Comment on above: PATIENT WAS FASTINGP ERFORMED BY: [employer] [id number] BY: LabCoOcean Medical CenterOynrtg3496 [facility] [id number] Hematocrit (Bld) [Volume fraction] 37.8 % Normal 34.0-46.6 [facility] Work Phone: Comment on above: PATIENT WAS FASTINGP ERFORMED BY: [employer] [id number] BY: [facility] Nociba1092 [facility]in [place] [id number] Hemoglobin (Bld) [Mass/Vol] 12.7 g/dL Normal 11.1-15.9 [facility] Work Phone: Comment on above: PATIENT WAS FASTINGP ERFORMED BY: [address] [id number] BY: TAVIA [facility] Xfxezd0891 [address] RoadDublin [place] [id number] Immature granulocytes (Bld) [#/Vol] 0.0 {x10E3/uL} Normal 0.0-0.1 [facility] Work Phone: Comment on above: PATIENT WAS FASTINGP ERFORMED BY: [address] [id number] BY: [facility] Ixhqsv1504 [address] RoadDublin [place] [id number] Immature granulocytes (Bld) [#/Vol] 0.0 10*3/uL Normal 0.0-0.1 [facility] Work Phone: Comment on above: PATIENT WAS FASTINGP ERFORMED BY: [address] [id number] BY: [facility] Fydjqs1932 [address] RoadDublin [place] [id number] Immature granulocytes/100 WBC (Bld) 0 % Normal [facility] Work Phone: Comment on above: PATIENT WAS FASTINGP ERFORMED BY: [address] [id number] BY: [facility] Fzxijw0256 [address] RoadDublin [place] [id number] Lymphocytes (Bld) [#/Vol] 1.2 {x10E3/uL} Normal 0.7-3.1 [facility] Work Phone: Comment on above: PATIENT WAS FASTINGP ERFORMED BY: [address] [id number] BY: [facility] Gowrvm5827 [address] RoadDublin [place] [id number] Lymphocytes (Bld) [#/Vol] 1.2 10*3/uL Normal 0.7-3.1 [facility] Work Phone: Comment on above: PATIENT WAS FASTINGP ERFORMED BY: [address] [id number] BY: [facility] Wqnpac6609 [address] RoadDublin [place] [id number] Lymphocytes/100 WBC (Bld) 22 % Normal [facility] Work Phone: Comment on above: PATIENT WAS FASTINGP ERFORMED BY: Lab[address] [id number] BY: LabCoOcean Medical CenterVyqmfq9059 [address] RoadDublin [place] [id number] MCH (RBC) [Entitic mass] 28.5 pg Normal 26.6-33.0 [facility] Work Phone: Comment on above: PATIENT WAS FASTINGP ERFORMED BY: [address] [id number] BY: LabCoDavid [place] 5733670 [facility]in [place] [id number] MCHC (RBC) [Mass/Vol] 33.6 g/dL Normal 31.5-35.7 [facility] Work Phone: Comment on above: PATIENT WAS FASTINGP ERFORMED BY: [employer] [id number] BY: LabTommy [place] 8907270 [facility]in [place] [id number] MCV (RBC) [Entitic vol] 85 fL Normal 79-97 [facility] Work Phone: Comment on above: PATIENT WAS FASTINGP ERFORMED BY: [address] [id number] BY: LabTom[place] 8907270 [facility]in [place] [id number] Monocytes (Bld) [#/Vol] 0.3 {x10E3/uL} Normal 0.1-0.9 [facility] Work Phone: Comment on above: PATIENT WAS FASTINGP ERFORMED BY: [address] [id number] BY: [facility] Zwzgfr8768 [address] RoadDublin [place] [id number] Monocytes (Bld) [#/Vol] 0.3 10*3/uL Normal 0.1-0.9 [facility] Work Phone: Comment on above: PATIENT WAS FASTINGP ERFORMED BY: [address] [id number] BY: LabCoOcean Medical CenterQbnfnt6036 [address] RoadDublin [place] [id number] Monocytes/100 WBC (Bld) 5 % Normal [facility] Work Phone: Comment on above: PATIENT WAS FASTINGP ERFORMED BY: LabCo[address] [id number] BY: TAVIA LabCoDavid [place] 5733670 [address] RoadDublin [place] [id number] Neutrophils (Bld) [#/Vol] 3.8 {x10E3/uL} Normal 1.4-7.0 [facility] Work Phone: Comment on above: PATIENT WAS FASTINGP ERFORMED BY: [address] [id number] BY: LabTom[place] 8907270 [address] RoadDublin [place] [id number] Neutrophils (Bld) [#/Vol] 3.8 10*3/uL Normal 1.4-7.0 [facility] Work Phone: Comment on above: PATIENT WAS FASTINGP ERFORMED BY: [address] [id number] BY: [facility] Mxebtz3530 [address] RoadDublin [place] [id number] Neutrophils/100 WBC (Bld) 71 % Normal [facility] Work Phone: Comment on above: PATIENT WAS FASTINGP ERFORMED BY: [address] [id number] BY: [facility] Nfcqxs6240 [address] RoadDublin [place] [id number] Platelets (Bld) [#/Vol] 314 {x10E3/uL} Normal 150-450 [facility] Work Phone: Comment on above: PATIENT WAS FASTINGP ERFORMED BY: Lab[address] [id number] BY: [facility] Zdpeds3914 [address] RoadDublin [place] [id number] Platelets (Bld) [#/Vol] 314 10*3/uL Normal 150-450 [facility] Work Phone: Comment on above: PATIENT WAS FASTINGP ERFORMED BY: Lab[address] [id number] BY: LabCoDavid [place] 5733670 [facility] [id number] RBC (Bld) [#/Vol] 4.46 {x10E6/uL} Normal 3.77-5.28 [facility] Internal Medicine Work Phone: Comment on above: PATIENT WAS FASTINGP ERFORMED BY: [address] [id number] BY: LabTom[place] 8907270 [facility] [id number] RBC (Bld) [#/Vol] 4.46 10*6/uL Normal 3.77-5.28 [facility] Internal Medicine Work Phone: Comment on above: PATIENT WAS FASTINGP ERFORMED BY: [address] [id number] BY: LabCoOcean Medical CenterYqidrp7489 [facility] [id number] WBC (Bld) [#/Vol] 5.3 {x10E3/uL} Normal 3.4-10.8 [facility] Internal Medicine Work Phone: Comment on above: PATIENT WAS FASTINGP ERFORMED BY: [address] [id number] BY: LabHar[facility] Hospital6370 [facility] [id number] WBC (Bld) [#/Vol] 5.3 10*3/uL Normal 3.4-10.8 [facility] Internal Medicine Work Phone: Comment on above: PATIENT WAS FASTINGP ERFORMED BY: [employer] [address] [id number] BY: TAVIA LabMyMedLeads.comOcean Medical CenterMolffp7494 [facility] [id number] HGB A1C (67315)Ordered By: Allyn ystem [employer]op Coiling Machine Operator on 12-17-2018 HbA1c (Bld) [Mass fraction] 5.6 % Normal 4.8-5.6 [facility] Work Phone: Comment on above: . Prediabetes: 5.7 - 6.4 Diabetes: >6.4 Glycemic control for adults with diabetes: <7.0 PATIENT WAS FASTINGP ERFORMED BY: [employer] [address] [id number] BY: TAVIA NGenTecOcean Medical CenterNqvuej2071 [facility] [id number] MICROALBUMINOrdered By: Syst em Hoop Coiling Machine Operator on 12-17-2018 Albumin DL <= 20 mg/L (U) [Mass/Vol] 3.9 ug/mL Normal Comprehensiv e Internal Medicine Work Phone: Comment on above: PATIENT WAS FASTINGP ERFORMED BY: tabulate[address] [id number] BY: TAVIA NGenTecOcean Medical CenterMgiuyr0620 [facility] [id number] Albumin/Creatinine (U) [Mass ratio] 2.4 {mg/g_creat} Normal 0.0-30.0 [facility] Work Phone: Comment on above: Normal: 0.0 - 30.0 A lbuminuria: 31.0 - 300.0 Clinical albuminuria: >300.0 PATIENT WAS FASTINGP ERFORMED BY: tabulate[address] [id number] BY: TAVIA LabMyMedLeads.comOcean Medical CenterKvshpz2115 [facility] [id number] Creatinine (U) [Mass/Vol] 162.3 mg/dL Normal [facility] Work Phone: Comment on above: PATIENT WAS FASTINGP ERFORMED BY: BN LabCo[address] [id number] BY: CB [facility] Cpotoe2115 [address] RoadDublin [place] [id number] Metabolic Panel, Chuy caballero ([id number])Ordered By: Line Dancer on 12-17-2018 Albumin [Mass/Vol] 4.5 g/dL Normal 3.5-5.5 [facility] Internal Medicine Work Phone: Comment on above: PATIENT WAS FASTINGP ERFORMED BY: [facility] [address] [id number] BY: [facility] Yogdlv8656 [address] RoadDublin [place] [id number] Albumin/Globulin [Mass ratio] 1.8 {ratio} Normal 1.2-2.2 [facility] Work Phone: Comment on above: PATIENT WAS FASTINGP ERFORMED BY: Lab[address] [id number] BY: [facility] Lywlaz3963 [address] RoadDublin [place] [id number] ALP [Catalytic activity/Vol] 108 [iU]/L Normal 39-117 [facility] Work Phone: Comment on above: PATIENT WAS FASTINGP ERFORMED BY: Lab[address] [id number] BY: [facility] Spjxpt6582 [address] RoadDublin [place] [id number] ALP [Catalytic activity/Vol] 108 U/L Normal 39-117 [facility] Work Phone: Comment on above: PATIENT WAS FASTINGP ERFORMED BY: LabCo[address] [id number] BY: [facility] Kjkkzq2782 [address] RoadDublin [place] [id number] ALT [Catalytic activity/Vol] 23 [iU]/L Normal 0-32 [facility] Work Phone: Comment on above: PATIENT WAS FASTINGP ERFORMED BY: LabCo[address] [id number] BY: TAVIA [facility] Ubrfdo8124 [address] RoadDublin [place] [id number] ALT [Catalytic activity/Vol] 23 U/L Normal 0-32 [facility] Work Phone: Comment on above: PATIENT WAS FASTINGP ERFORMED BY: [address] [id number] BY: TAVIA [facility] Mmenlx2436 [address] RoadDublin [place] [id number] AST [Catalytic activity/Vol] 18 [iU]/L Normal 0-40 [facility] Work Phone: Comment on above: PATIENT WAS FASTINGP ERFORMED BY: Lab[address] [id number] BY: TAVIA [facility] Pehxnq5801 [address] RoadDublin [place] [id number] AST [Catalytic activity/Vol] 18 U/L Normal 0-40 [facility] Work Phone: Comment on above: PATIENT WAS FASTINGP ERFORMED BY: [address] [id number] BY: TAVIA [facility] Fxktmi5094 [address] RoadDublin [place] [id number] Bilirubin [Mass/Vol] mg/dL Normal 0.0-1.2 Comp rehensive Internal Medicine Work Phone: Comment on above: PATIENT WAS FASTINGP ERFORMED BY: [address] [id number] BY: TAVIA [facility] Kmqwsn8750 [address] RoadDublin [place] [id number] Bilirubin [Mass/Vol] mg/dL Normal 0.0-1.2 Comp rehensive Internal Medicine Work Phone: Comment on above: PATIENT WAS FASTINGP ERFORMED BY: LabCo[address] [id number] BY: TAVIA [facility] Ffmbhw9102 [address] RoadDublin [place] [id number] Calcium [Mass/Vol] 9.4 mg/dL Normal 8.7-10.2 [facility] Internal Medicine Work Phone: Comment on above: PATIENT WAS FASTINGP ERFORMED BY: BN [facility] Zjguheqqyc[address] [id number] BY: CB [facility] Mzvyed9463 [address] RoadDublin [place] [id number] Chloride [Moles/Vol] 100 mmol/L Normal 96-106 Comp [facility] centerensive Internal Medicine Work Phone: Comment on above: PATIENT WAS FASTINGP ERFORMED BY: BN [facility] Lnqdjjfyna[address] [id number] BY: CB [facility] Xpzajf9182 [address] RoadDublin [place] [id number] CO2 [Moles/Vol] 27 mmol/L Normal 20-29 [facility] Internal Medicine Work Phone: Comment on above: PATIENT WAS FASTINGP ERFORMED BY: BN [facility] Wqorgekvph20[address] [id number] BY: CB [facility] Toklbp9513 [address] RoadDublin [place] [id number] Creatinine [Mass/Vol] 0.87 mg/dL Normal 0.57-1.00 [facility] Work Phone: Comment on above: PATIENT WAS FASTINGP ERFORMED BY: [facility] [address] [id number] BY: CB [facility] Ogyhxr0052 [address] RoadDublin [place] [id number] GFR/1.73 sq M predicted among blacks CKD-EPI (S/P/Bld) [Vol rate/Area] 87 mL/min/1.73 Normal [facility] Work Phone: Comment on above: PATIENT WAS FASTINGP ERFORMED BY: BN [facility] Gprsmzxtvu95[address] [id number] BY: CB [facility] Plflio4790 [address] RoadDublin [place] [id number] GFR/1.73 sq M predicted among non-blacks CKD-EPI (S/P/Bld) [Vol rate/Area] 76 mL/min/1.73 Normal [facility] Work Phone: Comment on above: PATIENT WAS FASTINGP ERFORMED BY: Lab[address] [id number] BY: [facility] Latwcy8336 [address] RoadDublin [place] [id number] Globulin (S) [Mass/Vol] 2.5 g/dL Normal 1.5-4.5 [facility] Work Phone: Comment on above: PATIENT WAS FASTINGP ERFORMED BY: [employer] [id number] BY: LabCoOcean Medical CenterOzglnx6116 [facility]in [place] [id number] Glucose [Mass/Vol] 95 mg/dL Normal 65-99 [facility] Internal Medicine Work Phone: Comment on above: PATIENT WAS FASTINGP ERFORMED BY: [employer] [id number] BY: [facility] Cnmcee4904 [address] RoadMartin General Hospitalin [place] [id number] Potassium [Moles/Vol] 4.8 mmol/L Normal 3.5-5.2 [facility] Work Phone: Comment on above: PATIENT WAS FASTINGP ERFORMED BY: Lab[address] [id number] BY: LabB[facility] Etcsew0792 [facility]in [place] [id number] Protein [Mass/Vol] 7.0 g/dL Normal 6.0-8.5 [facility] Internal Medicine Work Phone: Comment on above: PATIENT WAS FASTINGP ERFORMED BY: Lab[address] [id number] BY: [facility] Ydpbdb1240 [address] RoadDublin [place] [id number] Sodium [Moles/Vol] 142 mmol/L Normal 134-144 [facility] Internal Medicine Work Phone: Comment on above: PATIENT WAS FASTINGP ERFORMED BY: [employer] [id number] BY: LabCoOcean Medical CenterOqgldj5670 [facility] [id number] Urea nitrogen [Mass/Vol] 18 mg/dL Normal 6-24 [facility] Work Phone: Comment on above: PATIENT WAS FASTINGP ERFORMED BY: LabCo[address] [id number] BY: LabCoDavid [place] 5733670 [facility] [id number] Urea nitrogen/Creatinine [Mass ratio] 21 mg/mg Normal 9-23 [facility] Work Phone: Comment on above: PATIENT WAS FASTINGP ERFORMED BY: NGen[employer]ec[address] [id number] BY: LabTommy [place] 8907270 [facility] [id number] NMR Profile (15001)Ordered B y: Line Dancer on 12-17-2018 Cholesterol [Mass/Vol] 240 mg/dL Abnormal 100-199 [facility] Work Phone: Comment on above: PATIENT WAS FASTINGP ERFORMED BY: NGenTec[address] [id number] BY: LabCoDavid [place] 5733670 [facility] [id number] Lipoprotein.alpha [Moles/Vol] 35.2 umol/L Normal [facility] Work Phone: Comment on above: PATIENT WAS FASTINGP ERFORMED BY: [employer] [id number] BY: LabHar[facility] Hospital6370 [facility] [id number] Lipoprotein.beta.sub particle [Entitic length] 21.5 nm Normal [facility] Work Phone: Comment on above: INTERPRETATIVE INFORMATION PARTICLE CONCENTRATION AND SIZE <--Lower CVD Risk Higher CVD Risk--> LDL AND HDL PARTICLES Percentile in Reference Population HDL-P (total) High 75th 50th 25th Low >34.9 34.9 30.5 26.7 <26.7 . Small LDL-P Low 25th 50th 75th High <117 117 527 839 >839 . LDL Size <-Large (Pattern A)-> <-Small (Pattern B)-> 23.0 20.6 20.5 19.0 Small LDL-P and LDL Size are associated with CVD risk, but not afterLDL-P is taken into account. .These assays were developed and their performance characteristicsdetermined by [employer]. These assays have not been cleared by [place] Food and Drug Administration. The clinical utility of theselaboratory values have not been fully established. PATIENT WAS FASTINGP ERFORMED BY: [employer] [facility] [id number] BY: PlayLabLake Regional Health System [id number] Lipoprotein.beta.sub particle [Moles/Vol] 1320 nmol/L Abnormal Comprehensi Internal Medicine Work Phone: Comment on above: Low < 1000 Moderate 1000 - 1299 Borderline-High 1300 - 1599 High 1600 - 2000 Very High > 2000 PATIENT WAS FASTINGP ERFORMED BY: [employer] [address] [id number] BY: [employer] [facility] [id number] Lipoprotein.beta.sub particle.small [Moles/Vol] 201 nmol/L Normal [facility] Work Phone: Comment on above: PATIENT WAS FASTINGP ERFORMED BY: LabCo[address] [id number] BY: [facility] Nnvvpj1025 [facility] [id number] Triglyceride [Mass/Vol] 51 mg/dL Normal 0-149 [facility] Work Phone: Comment on above: PATIENT WAS FASTINGP ERFORMED BY: [facility] [address] [id number] BY: [facility] Bzxntb8243 [facility] [id number] NMR Profile (24595) 81 mg/dL Normal Compr ehensive Internal Medicine Work Phone: Comment on above: PATIENT WAS FASTINGP ERFORMED BY: LabMyMedLeads.com[address] [id number] BY: [facility] Qsytor0301 [facility] [id number] NMR Profile (52279) 149 mg/dL Abnormal 0-99 Compr ehensive Internal Medicine Work Phone: Comment on above: . Optimal < 100 Abov e optimal 100 - 129 Borderline 130 - 159 High 160 - 189 Very high > 189 .LDL-C is inaccurate if patient is non-fasting. PATIENT WAS FASTINGP ERFORMED BY: NGenTec[address] [id number] BY: [facility] Bbqdkx6232 [facility] [id number] NMR Profile (77408) 51 mg/dL Normal 0-149 Compr ehensive Internal Medicine; [facility] Work Phone: NMR Profile (69480) 240 mg/dL Abnormal 100-199 Compr ehensive Internal Medicine; [facility] Work Phone: TSH ([id number])Ordered By: Hellen Navarro on 12-17-2018 TSH Qn 1.190 {uIU/mL} Normal 0.450-4.50 0 [facility] Work Phone: Comment on above: PATIENT WAS FASTINGP ERFORMED BY: LabCo[address] [id number] BY: TAVIA [facility] Zadyms0611 [address] RoadDublin [place] [id number] URINALYSIS (45850)Ordered By : Line Dancer on 12-17-2018 Appearance (U) Clear Normal Comprehens william Internal Medicine Work Phone: Comment on above: PATIENT WAS FASTINGP ERFORMED BY: [facility] [address] [id number] BY: TAVIA [facility] Swsjzj5923 [address] RoadDublin [place] [id number] Bilirubin Ql (U) Negative Normal Comprehe nsive Internal Medicine Work Phone: Comment on above: PATIENT WAS FASTINGP ERFORMED BY: Lab[address] [id number] BY: TAVIA [facility] Awotfh9594 [address] RoadDublin [place] [id number] Bilirubin Ql (U) Negative Normal Comprehe nsive Internal Medicine Work Phone: Comment on above: PATIENT WAS FASTINGP ERFORMED BY: Lab[address] [id number] BY: TAVIA [facility] Neqhwd1317 [address] RoadDublin [place] [id number] Color (U) Yellow Normal [facility] Work Phone: Comment on above: PATIENT WAS FASTINGP ERFORMED BY: LabCo[address] [id number] BY: TAVIA [facility] Toxkou3993 [address] RoadDublin [place] [id number] Glucose Ql (U) Negative Normal Comprehens william Internal Medicine Work Phone: Comment on above: PATIENT WAS FASTINGP ERFORMED BY: LabCo[address] [id number] BY: TAVIA [facility] Lkylyo7237 [address] RoadDublin [place] [id number] Glucose Ql (U) Negative Normal Comprehens william Internal Medicine Work Phone: Comment on above: PATIENT WAS FASTINGP ERFORMED BY: LabCo[address] [id number] BY: TAVIA [facility] Gsmiie0427 [address] RoadDublin [place] [id number] Hemoglobin Ql (U) Negative Normal Compreh ensive Internal Medicine Work Phone: Comment on above: PATIENT WAS FASTINGP ERFORMED BY: [facility] [address] [id number] BY: TAVIA [facility] Daharo6281 [address] RoadDublin [place] [id number] Hemoglobin Ql (U) Negative Normal Compreh ensive Internal Medicine Work Phone: Comment on above: PATIENT WAS FASTINGP ERFORMED BY: LabCo[address] [id number] BY: TAVIA [facility] Rksjcz0059 [address] RoadDublin [place] [id number] Ketones Ql (U) Negative Normal Comprehens william Internal Medicine Work Phone: Comment on above: PATIENT WAS FASTINGP ERFORMED BY: Lab[address] [id number] BY: TAVIA [facility] Hvplla8463 [address] RoadDublin [place] [id number] Ketones Ql (U) Negative Normal Comprehens william Internal Medicine Work Phone: Comment on above: PATIENT WAS FASTINGP ERFORMED BY: [facility] [address] [id number] BY: CB [facility] Maubnz9149 [address] RoadDublin [place] [id number] Leukocyte esterase Test strip Ql (U) Negative Normal [facility] Work Phone: Comment on above: PATIENT WAS FASTINGP ERFORMED BY: LabCo[address] [id number] BY: TAVIA [facility] Qrrzgv0631 [address] RoadDublin [place] [id number] Leukocyte esterase Test strip Ql (U) Negative Normal [facility] Work Phone: Comment on above: PATIENT WAS FASTINGP ERFORMED BY: [address] [id number] BY: TAVIA [facility] Ybgjva7997 [address] RoadDublin [place] [id number] Microscopic observation LM Nom (Urine sed) MICNIP Normal [facility] Work Phone: Comment on above: Microscopic not cesario cated and not performed. PATIENT WAS FASTINGP ERFORMED BY: [address] [id number] BY: TAVIA LabB[facility] Yzhmnl8851 [address] RoadDublin [place] [id number] Nitrite Ql (U) Negative Normal Comprehens william Internal Medicine Work Phone: Comment on above: PATIENT WAS FASTINGP ERFORMED BY: [address] [id number] BY: LabB[facility] Vheakf1648 [address] RoadDublin [place] [id number] Nitrite Ql (U) Negative Normal Comprehens william Internal Medicine Work Phone: Comment on above: PATIENT WAS FASTINGP ERFORMED BY: [address] [id number] BY: [facility] Raeuvl7415 [address] RoadDublin [place] [id number] pH (U) 6.5 [pH] Normal 5.0-7.5 [facility] Work Phone: Comment on above: PATIENT WAS FASTINGP ERFORMED BY: [address] [id number] BY: [facility] Ymizjn3819 [address] RoadDublin [place] [id number] Protein Ql (U) Negative Normal Comprehens william Internal Medicine Work Phone: Comment on above: PATIENT WAS FASTINGP ERFORMED BY: [address] [id number] BY: [employer] EquipmentBarton County Memorial Hospital Kbmobq9130 [address] [facility] [id number] Protein Ql (U) Negative Normal Comprehens william Internal Medicine Work Phone: Comment on above: PATIENT WAS FASTINGP ERFORMED BY: [employer] [id number] BY: [facility]6370 [facility] [id number] Specific gravity (U) [Rel density] 1.026 1 Normal 1.005-1.03 0 [facility] Work Phone: Comment on above: PATIENT WAS FASTINGP ERFORMED BY: [employer] [id number] BY: [employer] EquipmentHarbor Beach Community Hospital6370 [facility] [id number] Urobilinogen (U) [Mass/Vol] 0.2 mg/dL Normal 0.2-1.0 [facility] Internal Medicine Work Phone: Comment on above: PATIENT WAS FASTINGP ERFORMED BY: [employer] [id number] BY: [employer] EquipmentHarbor Beach Community Hospital6370 [facility] [id number] Urobilinogen Test strip (U) [Mass/Vol] 0.2 mg/dL Normal 0.2-1.0 [facility] [facility] Work Phone: Comment on above: PATIENT WAS FASTINGP ERFORMED BY: [employer] [id number] BY: [facility]6[address] [facility] [id number] T3on 11-13-2018 Total T3 103 ng/dL Normal 60-181 [facility] ([place]) Comment on above: Result Comment: Pleerendira se note ? as of 01/11/17 new pediatric reference intervals were added for this test. Performed By: #### T SH, T3, T4 #### [address] [address] T4on 11-13-2018 T4 9.1 mcg/dL Normal 4.7-11.4 [facility] ([place]) Comment on above: Result Comment: Jacek martin as of 01/11/17 new pediatric reference intervals were added for this test. Performed By: #### T SH, T3, T4 #### [place] [address] TSHon 11-12-2018 Thyrotropin Qn 1.24 mcIU/mL Normal 0.36-3.74 [facility] ([place]) Comment on above: Performed By: #### T SH, T3, T4 #### [place] [address] Final Surgical Pathology Rep [facility] 06-17-2018 Final Surgical Pathology Report . Pathology Reports Accession: Collected Date/Time: Received Date/Time: Pathologist: [id number] 05/26/2018 11:41 EST 05/26/2018 11:42 MD STEPHANIE HURTADO Final Surgical Pathology Report DIAGNOSIS: DISTAL SIGMOID COLON, BIOPSY: TUBULAR ADENOMA. CLINICAL INFORMATION: ENCOUNTER FOR SCREENING FOR MALIGNANT NEOPLASM OF COLON SPECIMEN: A POLYP - DISTAL SIGMOID - R/O ADENOMA - COLD SNARE GROSS DESCRIPTION: Received in formalin labeled distal sigmoid polyp is a 0.5 cm curtis glistening soft tissue. TS-1. Dictated by Kristie NELSON ([facility]) MICROSCOPIC DESCRIPTION: Slides reviewed. Electronically Signed by Pathology Report verified by [facility] Electronically signed by STEPHANIE STILES MD Sign out Date: 06/17/2018 11:41 Performing Lab: [address] Normal [facility] ([place]) Comment on above: Performed By: #### S PFR #### [place] [address] Final Surgical Pathology Report . Pathology Reports Accession: Collected Date/Time: Received Date/Time: Pathologist: [id number] 05/26/2018 14:25 EST 05/27/2018 14:25 MD STEPHANIE HURTADO Final Surgical Pathology Report CORRECTED REPORT: CORRECTED REPORT DUE TO INCORRECT LOCATION ENTERED DURING REGISTRATION. THERE IS NO CHANGE IN THE DIAGNOSIS. REFER TO [id number]. DIAGNOSIS: DISTAL SIGMOID COLON, BIOPSY: TUBULAR ADENOMA. CLINICAL INFORMATION: ENCOUNTER FOR SCREENING FOR MALIGNANT NEOPLASM OF COLON SPECIMEN: A POLYP - DISTAL SIGMOID - R/O ADENOMA - COLD SNARE GROSS DESCRIPTION: Received in formalin labeled distal sigmoid polyp is a 0.5 cm crutis glistening soft tissue. TS- 1 dictated by Tiff Krishna. Dictated by STEPHANIE STILES MD MICROSCOPIC DESCRIPTION: Slides reviewed. Electronically Signed by Pathology Report verified by [facility] Electronically signed by STEPHANIE STILES MD Sign out Date: 06/17/2018 11:39 Performing Lab: [address] ([place]) Comment on above: Performed By: #### S PFR #### [place] [address] Clinical Summary: HMSPatient IDon 05-13-2018 GOP Invalid Interpretation Code [facility] Work Phone: Office Visit: New - [facility] visi t with practice, Rm: 05-13-2018 NEGATED: Highlighted rowCT scan history of the cervical spine on 09/16/2017 at [facility] Invalid Interpretation Code [facility] Work Phone: NEGATED: Highlighted rowMRI (magnetic resonance imaging) history of the cervical spine on 09/28/2017 at [facility] Invalid Interpretation Code [facility] Work Phone: NEGATED: Highlighted rowProtein mass conc Done Invalid Interpretation Code [facility] Work Phone: NEGATED: Highlighted rowProtein mass conc Yes Invalid Interpretation Code [facility] Work Phone: NEGATED: Highlighted rowTobacco smoking status NHIS current everyday smoker Invalid Interpretation Code [facility] Work Phone: HGB A1C ([id number])Ordered By: Allyn richardtem Hoop Coiling Machine Operator on 04-16-2018 Hemoglobin A1c/Hemoglobin.total mass fraction (Bld) 6.0 % Abnormal 4.8-5.6 [facility] Work Phone: Comment on above: . Prediabetes: 5.7 - 6.4 Diabetes: >6.4 Glycemic control for adults with diabetes: <7.0 PATIENT WAS FASTINGP ERFORMED BY: TAVIA Thompson[address] [facility] [place] [id number] LIPID PANEL ([id number])Ordered B y: Line Dancer on 04-16-2018 Cholesterol in HDL mass conc 55 mg/dL Normal [facility] Work Phone: Comment on above: PATIENT WAS FASTINGP ERFORMED BY: TAVIA Thompson[address] [facility] [place] [id number] Cholesterol in LDL mass conc 80 mg/dL Normal 0-99 [facility] Work Phone: Comment on above: PATIENT WAS FASTINGP ERFORMED BY: TAVIA Thompson[address] [facility] [id number] Cholesterol in LDL/Cholesterol in HDL mass ratio 1.5 {ratio} Normal 0.0-3.2 [facility] Work Phone: Comment on above: LDL/HDL Ratio Men Wo men 1/2 Avg.Risk 1.0 1.5 Avg.Risk 3.6 3.2 2X Avg.Risk 6.2 5.0 3X Avg.Risk 8.0 6.1 PATIENT WAS FASTINGP ERFORMED BY: TAVIA Thompson[address] [facility] [id number] Cholesterol in VLDL mass conc 22 mg/dL Normal 5-40 [facility] Work Phone: Comment on above: PATIENT WAS FASTINGP ERFORMED BY: TAVIA Thompson[address] [facility] [id number] Cholesterol mass conc 157 mg/dL Normal 100-199 [facility] Work Phone: Comment on above: PATIENT WAS FASTINGP ERFORMED BY: TAVIA Thompson[address] [facility] [place] [id number] Triglyceride mass conc 108 mg/dL Normal 0-149 [facility] Work Phone: Comment on above: PATIENT WAS FASTINGP ERFORMED BY: TAVIA Vanlin[address] [facility] [place] [id number] MRI Spine Cervical w/o Contr ernesto 09-05-2017 MRI Spine Cervical w/o Contrast Exam Date/Time:09/05/2017 14:35 ESTReason for Exam:NECK STRAIN W/C DOI 08/09/17ReportMRI CERVICAL SPINE WITHOUT CONTRAST 09/05/2017 1:57 PMINDICATION: 52 years Female NECK STRAINCOMPARISON: CT cervical spine 08/09/2017TECHNIQUE: Sagittal T1, T2, STIR, axial T1 and T2 weighted sequences of thecervical spine. Sagittal oblique sequences were also obtained.FINDINGS:There is anterior spinal fusion hardware at C6-C7 with resultant susceptibilityartifact. The vertebral body heights and alignment appear preserved. The bonemarrow signal intensity is normal. The craniocervical and cervicothoracicjunctions appear intact. The cervical spinal cord appears normal caliberwithout signal abnormality.No spinal canal stenosis at C1-C2.C2-C3: Unremarkable.C3-C4: Tiny central protrusion without stenosis.C4-C5: Facet arthrosis without spinal canal or neural foraminal stenosis.C5-C6: Facet arthrosis without stenosis.C6-C7: No stenosis.C7-T1: Tiny central protrusion without stenosis.The prevertebral and posterior paraspinal soft tissues are unremarkable.IMPRESSION:1. No evident acute process involving the cervical spine. No spinal canal orneural foraminal stenosis. The vertebral body heights and alignment appearpreserved.Exam Date/Time:09/05/2017 14:35 ESTReport2. The cervical spinal cord appears normal. FINAL REPORT Dictated: 09/05/2017 4:22 pm Reji Alanis MSigned (Electronic Signature): 09/05/2017 4:22 pmSigned by: Reji Alanis Technologist: LEE [facility] CT Spine Cervical w/o Contra ston 08-09-2017 CT Spine Cervical w/o Contrast Exam Date/Time:08/09/2017 13:39 ESTReason for Exam:Sprain/StrainReportEX AM: CT SPINE CERVICAL W/O CONTRASTCLINICAL STATEMENT: Slipped and fell on ice at work. Neck pain, left hand pain.COMPARISON: None.TECHNIQUE: CT cervical spine without IV contrast. Coronal and sagittalreformations were performed.Dose reduction techniques were achieved by using automated exposure controland/or adjustment of mA and/or kV according to patient size and/or use ofiterative reconstruction technique.FINDINGS: Odontoid process appears intact. Occipital condyles and lateralpillars appear preserved. There is anterior kbfyo-amt-lavle fixation withdiscectomy at C6-C7. Hardware appears intact. There is block fusion across thislevel. No malalignment is identified. Mastoid air cells appear clear. There isincomplete fusion of the posterior neural arch of C1 at midline. No acutefracture is identified. Visualized intracranial structure details appearpreserved. No prevertebral soft tissue swelling is identified. Minor paraseptalemphysematous changes of the lungs. Upper lungs appear clear.C2-C3: Small central disc protrusion measures 3 mm. This indents the anteriorthecal sac without significant central canal stenosis. There is asymmetricright facet disease causing mild right neural foraminal narrowing. Left neuralforaminal space appears preserved.C3-C4: Small central disc protrusion. Bilateral facet disease. No significantcentral canal or neural foraminal narrowing.C4-C5: Small central disc protrusion indents the anterior thecal sac withoutsignificant central canal stenosis. Left-sided uncovertebral spur andasymmetric left facet disease cause mild to moderate left neural foraminalnarrowing. Right neural foraminal space appears preserved.C5-C6: Minor spondylitic ridging is seen without significant central canal orneural foraminal narrowing. Asymmetric left facet disease.C6-C7: Anterior fusion is seen. Mild spondylitic ridging indents the anteriorthecal sac without significant central canal stenosis. There is mild bilateralneural foraminal narrowing.C7 T1: No focal disc abnormality. No significant central canal or neuralforaminal narrowing is identified. Facet disease is noted.Exam Date/Time:08/09/2017 13:39 ESTReportIMPRESSION:1. No acute fracture is identified.2. Anterior fusion at C6-C7 is noted. Hardware is intact.3. Mild to moderate degenerative disc disease. No significant central canalstenosis is identified. Scattered facet arthropathy is seen. FINAL REPORT Dictated: 08/09/2017 2:58 pm Michael Alcaraz DO PSigned (Electronic Signature): 08/09/2017 2:58 pmSigned by: Michael Alcaraz DO Technologist: MM Normal [facility] Basic Metabolic Profile (BMP )Ordered By: Line Dancer on 05-26-2017 Basic metabolic 2000 panel 21.7 {RATIO} Abnormal 10-20 [facility] Work Phone: Basic metabolic 2000 panel 27.0 mmol/L Normal 21.0-32.0 [facility] Work Phone: Basic metabolic 2000 panel 105 mmol/L Normal 98-107 [facility] Work Phone: Basic metabolic 2000 panel 4.2 mmol/L Normal 3.5-5.1 [facility] Work Phone: Basic metabolic 2000 panel 139 mmol/L Normal 136-145 [facility] Work Phone: Basic metabolic 2000 panel 8.7 mg/dL Normal 8.5-10.1 [facility] Work Phone: Basic metabolic 2000 panel 7 1 Normal 5-15 [facility] Work Phone: Basic metabolic 2000 panel 88 mg/dL Normal 70-110 [facility] Work Phone: Basic metabolic 2000 panel 93 mL/min Normal [facility] Work Phone: Comment on above: GFR Calc Basic metabolic 2000 panel 77 mL/min Normal [facility] Work Phone: Comment on above: Non- GFR Calc Basic metabolic 2000 panel 0.83 mg/dL Normal 0.55-1.02 [facility] Work Phone: Comment on above: The validity of the calculated GFR AND GFRAA in patients over70 years has not been determined. Clinical correlation isessential. Basic metabolic 2000 panel 18 mg/dL Normal 7-18 [facility] Work Phone: CBC-Complete Blood Cnt No Di ffOrdered By: Line Dancer on 05-26-2017 Erythrocyte distribution width Auto Ratio (RBC) 14.7 % Abnormal 11.6-14.6 [facility] Work Phone: Hematocrit Auto Volume Fraction (Bld) 39.9 % Normal 37-47 [facility] Work Phone: Hemoglobin mass conc (Bld) 12.6 g/dL Normal 12.0-15.0 [facility] Work Phone: MCH Auto Entitic mass (RBC) 27.7 pg Normal 27.0-32.0 [facility] Work Phone: MCHC Auto mass conc (RBC) 31.6 {g/gl} Abnormal 32-36 [facility] Work Phone: MCV Auto Entitic volume (RBC) 87.7 fL Normal 81-99 [facility] Work Phone: Platelet mean volume Auto Entitic volume (Bld) 9.9 fL Normal 6.2-12.0 [facility] Internal Medicine Work Phone: Platelets Auto #/vol (Bld) 301 10*3/uL Normal 150-450 [facility] Internal [facility] Work Phone: RBC Auto #/vol (Bld) 4.55 {M/mm3} Normal 4.2-5.4 [facility] Work Phone: RDW SD 46.9 fL Abnormal 35.1-43.9 [facility] Internal [facility] Work Phone: WBC Auto #/vol (Bld) 6.3 10*3/uL Normal 4.4-11.0 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 Left ventricular Ejection fraction 60 % Invalid Interpretation Code [facility] Work Phone: Tobacco use CPHS Current every day smoker Invali d Interpretation Code [facility] Work Phone: CCP IgG AntibodiesOrdered By : Line Dancer on 04-24-2017 Cyclic citrullinated peptide IgG Qn 4 {units} Normal 0-19 [facility] Internal Medicine Work Phone: Comment on above: Negative <20 Weak po sitive 20 - 39 Moderate positive 40 - 59 Strong positive >59 CRPOrdered By: System Manage r on 04-24-2017 CRP High sensitivity method mass conc 4.00 mg/L Abnormal 0.0-3.0 [facility] Internal Medicine Work Phone: Comment on above: C-Reactive Protein ( CRP) provides useful information for thediagnosis, therapy and monitoring of inflammatory processesand associated diseases. For the evaluation of Relative Riskfor Cardiovascular Disease, a High Sensitivity CRP (HSCRP)should be ordered. Clinical Lists Update: Preshaheen garcia 04-24-2017 Cholesterol 184 mg/dL Normal [facility] Work Phone: Comment on above: <200 mg/dL Desirable 200-240 mg/dL Borderline >240 mg/dL High Risk HDL Cholesterol 72 mg/dL Normal [facility] Work Phone: Comment on above: The drugs N-Acetylcy steine and Metamizole may falselydepress this assay. Reference Range HDL <40 mg/dL Low HDL Cholesterol HDL >or= 60 mg/dL High HDL Cholesterol Thyroxine (T4) free 1.05 ng/dL Normal 0.76-1.46 [facility] Work Phone: Triglyceride 60 mg/dL Normal [facility] t Group Work Phone: Comment on above: The drugs N-Acetylcy steine and Metamizole may falselydepress this assay.Serum Triglycerides Reference Interval Normal <150 mg/dL Borderline high 150 - 199 mg/dL High 200 - 499 mg/dL Very High > or = 500 mg/dL Triiodothyronine (T3) free 3.1 pg/mL Normal 2.18-3.98 [facility] Work Phone: LDL Cholesterol 100 mg/dL Invalid Interpretation Code [facility] Work Phone: Thyroid stimulating hormone (TSH) 1.13 u[iU]/mL Invalid Interpretation Code [facility] Work Phone: Lipid ProfileOrdered By: Daniele tem Hoop Coiling Machine Operator on 04-24-2017 Cholesterol in LDL mass conc 100 mg/dL Normal 0-130 [facility] Work Phone: Cholesterol in VLDL mass conc 12 mg/dL Normal 5-40 [facility] Work Phone: Thyroid Peroxidase ABOrdered By: Line Dancer on 04-24-2017 Thyroperoxidase Ab Qn 14 {IU/mL} Normal 0-34 [facility] Work Phone: Comment on above: Performed at: [address] [place], [place] [id number] Director: Dov Quick MD, Phone: [phone] at: [employer] [facility] [address] [id number] Director: Idris Vo PhD, Phone: [phone] Thyroid Stim Hormone (TSH)Or dered By: Line Dancer on 04-24-2017 Thyrotropin Qn 1.13 {uIU/mL} Normal 0.358-3.74 [facility] Work Phone: Vitamin I15Fhnaymn By: Hellen m Hoop Coiling Machine Operator on 04-24-2017 Cobalamin (Vitamin B12) mass conc 950 pg/mL Abnormal 211-911 [facility] Work Phone: HgA1C , Office ([phone])Ordere d By: Violeta Pak on 03-06-2017 Hemoglobin A1c/Hemoglobin.total mass fraction (Bld) 5.9 % Normal 4.6 - 7.1 [facility] Work Phone: 2 HR Glucose Tolerance TestO rdered By: Line Dancer on 12-05-2016 Glucose 2 hours p dose glucose mass conc 170 mg/dL Normal 110-170 [facility] Work Phone: Glucose 2 hours p dose glucose mass conc 160 mg/dL Abnormal 70-120 [facility] Work Phone: Glucose 2 hours p dose glucose mass conc 216 mg/dL Abnormal 120-170 [facility] Work Phone: Glucose 2 hours p dose glucose mass conc 108 mg/dL Normal 70-110 [facility] Work Phone: Comment on above: GLUCOSE TOLERANCE TE ST Reference Interval Non- Adults Fasting 70 - 110 30 minutes 110 - 170 1 hour 120 - 170 2 hour 70 - 120 3 hour 70 - 110 4 hour 70 - 110 5 hour 70 - 110 ANTINUCLEAR ANTIBODIES DIREC TOrdered By: Line Dancer on 12-05-2016 Nuclear Ab Ql (S) Negative Normal [facility] Work Phone: Comment on above: Performed at: [email or web address] [address] [id number] Director: Idris Vo PhD, Phone: [phone] Antiextractable Nug AgOrdere d By: Line Dancer on 12-05-2016 TIERNEY Ab <0.2 Normal 0.0-0.9 [facility] Work Phone: Bedside GlucoseOrdered By: S ystem Hoop Coiling Machine Operator on 12-05-2016 BEDSIDE GLU 105 mg/dL Normal 70-110 [facility] Work Phone: Comment on above: MANAGEMENT OF PATIEN T CARE PER NURSING PROTOCOL Erythrocyte Sed RateOrdered By: Line Dancer on 12-05-2016 SED RATE 18 mm/h Normal 0-30 [facility] Work Phone: Folates, (Folic Acid)Ordered By: Line Dancer on 12-05-2016 FOLATES 10.00 ng/mL Normal 3.1-17.5 [facility] Work Phone: HIV Screen 4TH GEN W/Confirm Ordered By: Line Dancer on 12-05-2016 HIV1/0/2 SCREEN Non Reactive Normal [facility] Work Phone: Comment on above: Performed at: [address] [id number] Director: Dov Quick MD, Phone: [phone] at: [facility] [id number] Director: Idris Vo PhD, Phone: [phone] Heavy Metals, UrineOrdered B y: Line Dancer on 12-05-2016 ARSENIC TOTAL,U 24 ug/L Normal 0-50 [facility] s[facility] Work Phone: Comment on above: Detection Limit = 10 CREATININE,UR 1.33 g/L Normal 0.30-3.00 Comprehensi ve [facility] Medicine Work Phone: Comment on above: Detection Limit = 0. 10 MERCURY, URINE Normal Comprehens william [facility] Work Phone: Comment on above: None Detected Detect ion Limit = 1 None Detected Enviro nmental Exposure: 0-19 Occupational Exposure: 35 Detection Limit = 10 MERCURY,UR 24HR Test not performed Normal C omprehensive Internal Medicine Work Phone: Hemoglobin [id number] By: LineaQuattro stem Hoop Coiling Machine Operator on 12-05-2016 Hemoglobin A1c/Hemoglobin.total mass fraction (Bld) 5.8 % Normal 4.2-6.3 [facility] Work Phone: Hepatitis C,RNA PCR Viral Lo adOrdered By: Line Dancer on 12-05-2016 HCV log 10 Test not performed Normal Compre hens[facility] Work Phone: HCV QT PCR HCV Not Detected Normal Comprehe nsive [facility] Work Phone: TEST INFO: Comment Normal [facility] Work Phone: Comment on above: The quantitative ran ge of this assay is 15 IU/mL to 100million IU/mL. Protein Electroph, SOrdered By: Line Dancer on 12-05-2016 Albumin mass conc 3.5 g/dL Normal 2.9-4.4 [facility] Work Phone: Albumin/Globulin mass ratio 1.1 {ratio} Normal 0.7-1.7 [facility] Work Phone: ALPHA-1 GLOBUL 0.3 g/dL Normal 0.0-0.4 [facility] Work Phone: ALPHA-2 GLOBUL 0.9 g/dL Normal 0.4-1.0 [facility] Work Phone: BETA GLOBULIN 1.2 g/dL Normal 0.7-1.3 Comprehensi ve [facility] Medicine Work Phone: GAMMA GLOBULIN 0.8 g/dL Normal 0.4-1.8 [facility]prehens [facility] Work Phone: Globulin Calculated mass conc (S) 3.2 g/dL Normal 2.2-3.9 [facility] Work Phone: M-SPIKE Normal [facility] Work Phone: Comment on above: Not Observed NOTE: Comment Normal [facility] Work Phone: Comment on above: The SPE pattern appe ars essentially unremarkable. Evidenceof monoclonal protein is not apparent. Protein electrophore sis scan will follow via computer,mail, or book illustrator delivery. Protein mass conc 6.7 g/dL Normal 6.0-8.5 [facility] Work Phone: Rheumatoid FactorOrdered By: Line Dancer on 12-05-2016 Rheumatoid factor Qn [IU]/mL Normal Comp rehensive [facility] Medicine Work Phone: Thyroid Stim Hormone (TSH)Or dered By: Line Dancer on 12-05-2016 Thyrotropin Qn 4.88 {uIU/mL} Abnormal 0.358-3.74 [facility] Work Phone: Vitamin U17Vembpfq By: Hellen m Hoop Coiling Machine Operator on 12-05-2016 Cobalamin (Vitamin B12) mass conc 346 pg/mL Normal 211-911 [facility] Work Phone: PPD ([id number])Ordered By: Mendy Harp on 07-10-2016 PPD ([id number]) Negative Normal [facility] Work Phone: Comment on above: lot: [id number]: 10/28 8site/route: L forearm/IDamt:0.1mLVIS signed when applicableChelsea, REFORESTATION WORKER PPD ([id number]) Negative Normal [facility] Work Phone: Comment on above: lot: [id number]: 10/28 8site/route: L forearm/IDamt:0.1mLVIS signed when applicableChelsea, REFORESTATION WORKER CALCIFIDIOL ([id number]) VIT D 25 Ordered By: Line Dancer on 03-26-2016 25-Hydroxyvitamin D2+25-Hydroxyvitamin D3 mass conc 27.1 ng/mL Abnormal 30.0-100.0 [facility] Work Phone: Comment on above: Vitamin D deficiency has been defined by the [place] of[place]icine and an Endocrine Society practice guideline as alevel of serum 25-OH vitamin D less than 20 ng/mL (1,2).The Endocrine Society went on to further define vitamin Dinsufficiency as a level between 21 and 29 ng/mL (2).1. IOM ([place] of Medicine). 2010. Dietary reference intakes for calcium and D. [place]: The National Academies Press.2. Fatmata ABRAMS, Neeta BROTHERS, Aliyah TOBAR, et al. Evaluation, treatment, and prevention of vitamin D deficiency: an Endocrine Society clinical practice guideline. JCEM. 2010; 96(7):1911-30. PATIENT WAS FASTINGP ERFORMED BY: TAVIA LabCojessica [id number] [facility] [id number] GLUCOSE ([id number])Ordered By: S ystem Hoop Coiling Machine Operator on 03-26-2016 Glucose mass conc 102 mg/dL Abnormal 65-99 [facility] Work Phone: Comment on above: PATIENT WAS FASTINGP ERFORMED BY: TAVIA LabCo Ozlpca0540 [facility] [id number] LIPID PANEL ([id number])Ordered B y: Line Dancer on 03-26-2016 Cholesterol in HDL mass conc 64 mg/dL Normal [facility] Work Phone: Comment on above: According to ATP-III Guidelines, HDL-C >59 mg/dL is considered anegative risk factor for CHD. PATIENT WAS FASTINGP ERFORMED BY: TAVIA LabCo [id number] [facility] [id number] Cholesterol in LDL mass conc 200 mg/dL Abnormal 0-99 [facility] Work Phone: Comment on above: PATIENT WAS FASTINGP ERFORMED BY: TAVIA LabFany Seozza1162 [facility] [id number] Cholesterol in LDL/Cholesterol in HDL mass ratio 3.1 {ratio_units} Normal 0.0-3.2 [facility] Work Phone: Comment on above: LDL/HDL Ratio Men Wo men 1/2 Avg.Risk 1.0 1.5 Avg.Risk 3.6 3.2 2X Avg.Risk 6.2 5.0 3X Avg.Risk 8.0 6.1 PATIENT WAS FASTINGP ERFORMED BY: TAVIA [facility] [id number] [facility] [id number] Cholesterol in VLDL mass conc 14 mg/dL Normal 5-40 [facility] Work Phone: Comment on above: PATIENT WAS FASTINGP ERFORMED BY: [facility] [id number] [facility] [id number] Cholesterol mass conc 278 mg/dL Abnormal 100-199 [facility] Work Phone: Comment on above: PATIENT WAS FASTINGP ERFORMED BY: TAVIA LabCojessica VanIfbpmj7056 [facility] [id number] Triglyceride mass conc 69 mg/dL Normal 0-149 [facility] Work Phone: Comment on above: PATIENT WAS FASTINGP ERFORMED BY: [facility] [id number] [facility] [id number] TSH ([id number])Ordered By: Michaele m Hoop Coiling Machine Operator on 03-26-2016 Thyrotropin Qn 1.310 {uIU/mL} Normal 0.450-4.50 0 [facility] Work Phone: Comment on above: PATIENT WAS FASTINGP ERFORMED BY: [facility] [id number] [facility] [id number] PPD ([id number])Ordered By: Mendy Harp on 02-05-2016 PPD ([id number]) Negative Normal [facility] Work Phone: Comment on above: PPDlot:[id number]:8/16site:lt TDdose:.1ccD.AUSTIN Mei PPD ([id number]) Negative Normal [facility] Work Phone: Comment on above: PPDlot:[id number]:8/16site:lt TDdose:.1ccD.AUSTIN Mei LIPID PANEL ([id number])Ordered B y: Line Dancer on 06-21-2015 Cholesterol in HDL mass conc 81 mg/dL Normal [facility] Work Phone: Comment on above: According to ATP-III Guidelines, HDL-C >59 mg/dL is considered anegative risk factor for CHD. PATIENT WAS FASTINGP ERFORMED BY: TAVIA [facility] [id number] [facility] [id number] Information: [id number] Cholesterol in LDL mass conc 140 mg/dL Abnormal 0-99 [facility] Work Phone: Comment on above: PATIENT WAS FASTINGP ERFORMED BY: [facility]6370 [facility] [id number] Information: [id number] Cholesterol in LDL/Cholesterol in HDL mass ratio 1.7 {ratio_units} Normal 0.0-3.2 [facility] Work Phone: Comment on above: LDL/HDL Ratio Men Wo men 1/2 Avg.Risk 1.0 1.5 Avg.Risk 3.6 3.2 2X Avg.Risk 6.2 5.0 3X Avg.Risk 8.0 6.1 PATIENT WAS FASTINGP ERFORMED BY: [place] [id number] [facility] [id number] Information: [id number] Cholesterol in VLDL mass conc 11 mg/dL Normal 5-40 [facility] Work Phone: Comment on above: PATIENT WAS FASTINGP ERFORMED BY: [place] [id number] [facility] [id number] Information: [id number] Cholesterol mass conc 232 mg/dL Abnormal 100-199 [facility] Work Phone: Comment on above: PATIENT WAS FASTINGP ERFORMED BY: [place] [id number] [facility] [id number] Information: [id number] Triglyceride mass conc 54 mg/dL Normal 0-149 [facility] Work Phone: Comment on above: PATIENT WAS FASTINGP ERFORMED BY: LabTommy [place] [id number] [facility] [id number] Information: [id number] Urine Drug Screen (Office - Urine Drug Screen 11 Panel) ([id number])Ordered By: Carmelita Child on 03-01-2015 Amphetamines Ql (U) Normal Compr [facility] Work Phone: Comment on above: positive for oxy and benzos Hemoglobin [id number] By: Sy stem Hoop Coiling Machine Operator on 01-24-2015 Hemoglobin A1c/Hemoglobin.total mass fraction (Bld) 5.8 % Abnormal 4.8-5.6 [facility] Work Phone: Comment on above: . Increased risk for diabetes: 5.7 - 6.4 Diabetes: >6.4 Glycemic control for adults with diabetes: <7.0 Glucose, SerumOrdered By: LineaQuattro stem Hoop Coiling Machine Operator on 12-29-2014 Glucose mass conc 106 mg/dL Abnormal 65-99 Compre[facility] Work Phone: Lipid Panel With LDL/HDL Rat ioOrdered By: Line Dancer on 12-29-2014 Cholesterol in HDL mass conc 63 mg/dL Normal [facility] Work Phone: Comment on above: According to ATP-III Guidelines, HDL-C >59 mg/dL is considered anegative risk factor for CHD. Cholesterol in LDL mass conc 163 mg/dL Abnormal 0-99 [facility] Work Phone: Cholesterol in LDL/Cholesterol in HDL mass ratio 2.6 {ratio_units} Normal 0.0-3.2 [facility] Work Phone: Comment on above: LDL/HDL Ratio Men Wo men 1/2 Avg.Risk 1.0 1.5 Avg.Risk 3.6 3.2 2X Avg.Risk 6.2 5.0 3X Avg.Risk 8.0 6.1 Cholesterol in VLDL mass conc 12 mg/dL Normal 5-40 [facility] Work Phone: Cholesterol mass conc 238 mg/dL Abnormal 100-199 [facility] Work Phone: Triglyceride mass conc 58 mg/dL Normal 0-149 [facility] Work Phone: TSHOrdered By: System Manage r on 12-29-2014 Thyrotropin Qn 2.140 {uIU/mL} Normal 0.450-4.50 0 [facility] Work Phone: Thyroxine (T4) Free, Direct, SOrdered By: Line Dancer on 12-29-2014 T4 free mass conc 1.28 ng/dL Normal 0.82-1.77 Compreh [facility] Work Phone: Triiodothyronine,Free,SerumO rdered By: Line Dancer on 12-29-2014 T3 free mass conc 3.1 pg/mL Normal 2.0-4.4 Compreh [facility] Work Phone: Influenza A&B Viral Culture ([id number])Ordered By: Line Dancer on 08-25-2014 FLUV identified Org specific cx Nom (Unsp spec) FLUABN Normal [facility] Work Phone: Comment on above: Negative:No Influenz a A or B detected. PATIENT NOT FASTINGP ERFORMED BY: TAVIA [employer] [facility] [id number] Information: SRC:NOS [id number] Rapid Flu ([id number] x 2)Ordered By: Manuela Azevedo on 08-25-2014 FLUAV Ag IA Ql (Throat) Negative Normal [facility] Work Phone: FLUAV Ag IA Ql (Throat) Negative Normal [facility] Work Phone: LIPID PANEL ([id number])Ordered B y: Line Dancer on 09-29-2013 Cholesterol in HDL mass conc 58 mg/dL Normal [facility] Work Phone: Comment on above: According to ATP-III Guidelines, HDL-C >59 mg/dL is considered anegative risk factor for CHD. PATIENT WAS FASTINGP ERFORMED BY: TAVIA [employer] Bepnsa5288 [facility] [id number] Information: [id number] Cholesterol in LDL mass conc 148 mg/dL Abnormal 0-99 [facility] Work Phone: Comment on above: PATIENT WAS FASTINGP ERFORMED BY: [employer] [id number] [facility] [id number] Information: [id number] Cholesterol in LDL/Cholesterol in HDL mass ratio 2.6 {ratio_units} Normal 0.0-3.2 [facility] Work Phone: Comment on above: PATIENT WAS FASTINGP ERFORMED BY: [employer] [id number] [facility] [id number] Information: [id number] Cholesterol in VLDL mass conc 13 mg/dL Normal 5-40 [facility] Work Phone: Comment on above: PATIENT WAS FASTINGP ERFORMED BY: CB [facility] [id number] [facility] [id number] Information: [id number] Cholesterol mass conc 219 mg/dL Abnormal 100-199 [facility] Work Phone: Comment on above: PATIENT WAS FASTINGP ERFORMED BY: [facility] [id number] [facility] [id number] Information: [id number] Triglyceride mass conc 65 mg/dL Normal 0-149 [facility] Work Phone: Comment on above: PATIENT WAS FASTINGP ERFORMED BY: [facility] [id number] [facility] [id number] Information: [id number] Vital Signs Date Time Vital Sign Value Performing Clinician Facility 11-25-2024 08:46-0400 Body height 174 cm Rodríguez Vick MD Work Phone: [facility] 11-25-2024 08:46-0400 Body mass index (BMI) [Ratio] 27.57 kg/m2 Rodríguez Vick MD Work Phone: [facility] 11-25-2024 08:46-0400 Body weight 83.46 kg Rodríguez Vick MD Work Phone: [facility] 11-25-2024 08:46-0400 Diastolic blood pressure 72 mm[Hg] Rodríguez Vick MD Work Phone: [facility] 11-25-2024 08:46-0400 Systolic blood pressure 133 mm[Hg] Rodríguez Vick MD Work Phone: [facility] 11-15-2024 11:51-0400 Body temperature 98.7 [degF] Dr. Juan Chan DO Work Phone: [facility] 11-15-2024 11:51-0400 Diastolic blood pressure 68 mm[Hg] Dr. Juan Chan DO Work Phone: [facility] 11-15-2024 11:51-0400 Heart rate 84 /min Dr. Juan Chan DO Work Phone: [facility] 11-15-2024 11:51-0400 Respiratory rate 18 /min Dr. Juan Chan DO Work Phone: [facility] 11-15-2024 11:51-0400 SaO2% (BldA) [Mass fraction] 95 % Dr. Juan Chan DO Work Phone: [facility] 11-15-2024 11:51-0400 Systolic blood pressure 137 mm[Hg] Dr. Juan Chan DO Work Phone: [facility] 11-15-2024 11:30-0400 Body temperature 98.7 [degF] Dr. Juan Chan DO Work Phone: [facility] 11-15-2024 11:30-0400 Diastolic blood pressure 68 mm[Hg] Dr. Juan Chan DO Work Phone: [facility] 11-15-2024 11:30-0400 Heart rate 84 /min Dr. Juan Chan DO Work Phone: [facility] 11-15-2024 11:30-0400 Respiratory rate 18 /min Dr. Juan Chan DO Work Phone: [facility] 11-15-2024 11:30-0400 SaO2% (BldA) [Mass fraction] 95 % Dr. Juan Chan DO Work Phone: [facility] 11-15-2024 11:30-0400 Systolic blood pressure 137 mm[Hg] Dr. Juan Chan DO Work Phone: [facility] 11-15-2024 10:22-0400 Body height 175.[address] Juan Chan DO Work Phone: [facility] 11-15-2024 10:22-0400 Body mass index (BMI) [Ratio] 27.3 kg/m2 Dr. Juan Chan DO Work Phone: [facility] 11-15-2024 10:22-0400 Body weight [address] Juan Chan DO Work Phone: [facility] 07-29-2024 14:04-0500 Body height 172.7 cm Rodríguez Vick MD Work Phone: [facility] 07-29-2024 14:04-0500 Body mass index (BMI) [Ratio] 28.43 kg/m2 Rodríguez Vick MD Work Phone: [facility] 07-29-2024 14:04-0500 Body weight 84.82 kg Rodríguez Vick MD Work Phone: [facility] 07-29-2024 14:04-0500 Diastolic blood pressure 71 mm[Hg] Rodríguez Vick MD Work Phone: [facility] 07-29-2024 14:04-0500 Heart rate 86 /min Rodríguez Vick MD Work Phone: [facility] 07-29-2024 14:04-0500 Systolic blood pressure 122 mm[Hg] Rodríguez iVck MD Work Phone: [facility] 07-20-2024 09:28-0500 Body temperature 97.7 [degF] Dr. Juan Chan DO Work Phone: [facility] 07-20-2024 09:28-0500 Body weight [address] Juan Chan DO Work Phone: [facility] 07-20-2024 09:28-0500 Diastolic blood pressure 83 mm[Hg] Dr. Juan Chan DO Work Phone: [facility] 07-20-2024 09:28-0500 Heart rate 108 /min Dr. Juan Chan DO Work Phone: [facility] 07-20-2024 09:28-0500 Respiratory rate 18 /min Dr. Juan Chan DO Work Phone: [facility] 07-20-2024 09:28-0500 SaO2% (BldA) [Mass fraction] 94 % Dr. Juan Chan DO Work Phone: [facility] 07-20-2024 09:28-0500 Systolic blood pressure 146 mm[Hg] Dr. Juan Chan DO Work Phone: [facility] 07-15-2024 12:53-0500 Body temperature 98.8 [degF] Rodríguez Vick MD Work Phone: [facility] 07-15-2024 12:53-0500 Diastolic blood pressure 77 mm[Hg] Rodríguez Vick MD Work Phone: [facility] 07-15-2024 12:53-0500 Heart rate 92 /min Rodríguez Vick MD Work Phone: [facility] 07-15-2024 12:53-0500 Respiratory rate 20 /min Rodríguez Vick MD Work Phone: [facility] 07-15-2024 12:53-0500 SaO2% (BldA) [Mass fraction] 94 % Rodríguez Vick MD Work Phone: [facility] 07-15-2024 12:53-0500 Systolic blood pressure 128 mm[Hg] Rodríguez Vick MD Work Phone: [facility] 07-14-2024 05:38-0500 Body height 172.7 cm Rodríguez Vick MD Work Phone: [facility] 07-14-2024 05:38-0500 Body mass index (BMI) [Ratio] 28.43 kg/m2 Rodríguez Vick MD Work Phone: [facility] 07-14-2024 05:38-0500 Body weight 84.82 kg Rodríguez Vick MD Work Phone: [facility] 04-29-2024 11:13-0400 Body height 175.3 cm Rodríguez Vick MD Work Phone: [facility] 04-29-2024 11:13-0400 Body mass index (BMI) [Ratio] 25.7 kg/m2 Rodríguez Vick MD Work Phone: [facility] 04-29-2024 11:13-0400 Body weight 78.93 kg Rodríguez Vick MD Work Phone: [facility] 04-06-2024 10:10-0400 Body temperature 96.8 [degF] MYRNA KORPI DO [address] [place] [address] 04-06-2024 10:10-0400 Diastolic Blood Pressure Non-Invasive 78 mm[Hg] MYRNA KORPI DO [address] [place] [address] 04-06-2024 10:10-0400 Heart rate 90 /min MYRNA KORPI DO [address] [place] [address] 04-06-2024 10:10-0400 Reason For Taking VItal Signs MYRNA KORPI DO [address] [place] [address] 04-06-2024 10:10-0400 Respiratory rate 16 /min MYRNA KORPI DO [address] [place] [address] 04-06-2024 10:10-0400 Systolic Blood Pressure Non-Invasive 136 mm[Hg] MYRNA KORPI DO [address] [place] [address] 04-06-2024 09:48-0400 Body temperature 96.8 [degF] MYRNA KORPI DO [address] [place] [address] 04-06-2024 09:48-0400 Diastolic Blood Pressure Non-Invasive 77 mm[Hg] MYRNA KORPI DO [address] [place] [address] 04-06-2024 09:48-0400 Heart rate 96 /min MYRNA KORPI DO [address] [place] [address] 04-06-2024 09:48-0400 Mean blood pressure 98 mm[Hg] MYRNA KORPI DO [address] [place] [address] 04-06-2024 09:48-0400 Respiratory rate 16 /min MYRNA KORPI DO [address] [place] [address] 04-06-2024 09:48-0400 Systolic Blood Pressure Non-Invasive 148 mm[Hg] MYRNA KORPI DO [address] [place] [address] 04-06-2024 09:33-0400 Diastolic Blood Pressure Non-Invasive 93 mm[Hg] MYRNA KORPI DO [address] [place] [address] 04-06-2024 09:33-0400 Heart rate 100 /min MYRNA KORPI DO [address] [place] [address] 04-06-2024 09:33-0400 Mean blood pressure 104 mm[Hg] MYRNA KORPI DO [address] [place] [address] 04-06-2024 09:33-0400 Respiratory rate 18 /min MYRNA KORPI DO [address] [place] [address] 04-06-2024 09:33-0400 Systolic Blood Pressure Non-Invasive 143 mm[Hg] MYRNA KORPI DO [address] [place] [address] 04-06-2024 09:18-0400 Body temperature 96.8 [degF] MYRNA KORPI DO [address] [place] [address] 04-06-2024 09:18-0400 Heart rate 96 /min MYRNA KORPI DO [address] [place] [address] 04-06-2024 09:18-0400 Mean blood pressure 101 mm[Hg] MYRNA KORPI DO [address] [place] [address] 04-06-2024 09:15-0400 Respiratory Rate - Anes 0 br/min MYRNA KORPI DO [address] [place] [address] 04-06-2024 09:10-0400 Respiratory Rate - Anes 7 br/min MYRNA KORPI DO [address] [place] [address] 04-06-2024 09:05-0400 Respiratory Rate - Anes 9 br/min MYRNA KORPI DO [address] [place] [address] 04-06-2024 09:00-0400 Body temperature 96.53 [degF] MYRNA KORPI DO [address] [place] [address] 04-06-2024 08:55-0400 Body temperature 96.57 [degF] MYRNA KORPI DO [address] [place] [address] 04-06-2024 08:50-0400 Body temperature 96.64 [degF] MYRNA KORPI DO [address] [place] [address] 04-06-2024 05:56-0400 Body height 172.7 cm MYRNA KORPI DO [address] [place] [address] 04-06-2024 05:56-0400 Body weight 77.2 kg MYRNA KORPI DO [address] [place] [address] 04-06-2024 05:40-0400 Body temperature 97.7 [degF] MYRNA KORPI DO [address] [place] [address] 04-06-2024 05:40-0400 Heart rate 99 /min MYRNA KORPI DO [address] [place] [address] 04-05-2024 10:16-0400 Blood Pressure Location MYRNA KORPI DO [address] [place] [address] 04-05-2024 10:16-0400 Blood Pressure Method MYRNA KORPI DO [address] [place] [address] 04-05-2024 10:16-0400 Body height 172.7 cm MYRNA KORPI DO [address] [place] [address] 04-05-2024 10:16-0400 Body temperature 97.52 [degF] MYRNA KORPI DO [address] [place] [address] 04-05-2024 10:16-0400 Body weight 83.5 kg MYRNA KORPI DO [address] [place] [address] 04-05-2024 10:16-0400 Body weight 28 kg/m2 MYRNA KORPI DO [address] [place] [address] 04-05-2024 10:16-0400 Diastolic Blood Pressure Non-Invasive 81 mm[Hg] MYRNA KORPI DO [facility] 04-05-2024 10:16-0400 Heart rate 92 /min MYRNA KORPI DO [facility] 04-05-2024 10:16-0400 Systolic Blood Pressure Non-Invasive 124 mm[Hg] MYRNA KORPI DO [facility] 03-22-2024 14:32-0400 Body temperature 98.42 [degF] LISSETT GREENWOOD MD [facility] 03-22-2024 14:32-0400 Diastolic Blood Pressure Non-Invasive 80 mm[Hg] LISSETT GREENWOOD MD [facility] 03-22-2024 14:32-0400 Heart rate 89 /min LISSETT GREENWOOD MD [facility] 03-22-2024 14:32-0400 Respiratory rate 16 /min LISSETT GREENWOOD MD [facility] 03-22-2024 14:32-0400 Systolic Blood Pressure Non-Invasive 147 mm[Hg] LISSETT GREENWOOD MD [facility] 03-22-2024 06:15-0400 Body temperature 98.42 [degF] LISSETT GREENWOOD MD [facility] 03-22-2024 06:15-0400 Diastolic Blood Pressure Non-Invasive 65 mm[Hg] LISSETT GREENWOOD MD [facility] 03-22-2024 06:15-0400 Heart rate 92 /min LISSETT GREENWOOD MD [facility] 03-22-2024 06:15-0400 Reason For Taking VItal Signs LISSETT GREENWOOD MD [facility] 03-22-2024 06:15-0400 Respiratory rate 17 /min LISSETT GREENWOOD MD [facility] 03-22-2024 06:15-0400 Systolic Blood Pressure Non-Invasive 117 mm[Hg] LISSETT GREENWOOD MD [facility] 03-22-2024 02:39-0400 Respiratory rate 16 /min LISSETT GREENWOOD MD [facility] 03-22-2024 02:26-0400 Body temperature 98.24 [degF] LISSETT GREENWOOD MD [facility] 03-22-2024 02:26-0400 Diastolic Blood Pressure Non-Invasive 79 mm[Hg] LISSETT GREENWOOD MD [facility] 03-22-2024 02:26-0400 Heart rate 101 /min LISSETT GREENWOOD MD [facility] 03-22-2024 02:26-0400 Systolic Blood Pressure Non-Invasive 146 mm[Hg] LISSETT GREENWOOD MD [facility] 03-21-2024 23:06-0400 Heart rate 89 /min LISSETT GREENWOOD MD [facility] 03-21-2024 19:00-0400 Heart rate 90 /min LISSETT GREENWOOD MD [facility] 03-21-2024 15:12-0400 Blood Pressure Cuff Size LISSETT GREENWOOD MD [facility] 03-21-2024 15:12-0400 Blood Pressure Location LISSETT GREENWOOD MD [facility] 03-21-2024 15:12-0400 Blood Pressure Method LISSETT GREENWOOD MD [facility] 03-21-2024 15:12-0400 Heart rate 86 /min LISSETT GREENWOOD MD [facility] 03-21-2024 11:00-0400 Mean blood pressure 106 mm[Hg] LISSETT GREENWOOD MD [facility] 03-21-2024 11:00-0400 Reason For Taking VItal Signs LISSETT GREENWOOD MD [facility] 03-21-2024 09:00-0400 Mean blood pressure 109 mm[Hg] LISSETT GREENWOOD MD [address] [place] [address] 03-21-2024 07:02-0400 Mean blood pressure 88 mm[Hg] LISSETT GREENWOOD MD [address] [place] [address] 03-20-2024 11:08-0400 Body height 172.7 cm LISSETT GREENWOOD MD [address] [place] [address] 03-20-2024 11:08-0400 Body weight 82.9 kg LISSETT GREENWOOD MD [address] [place] [address] 03-20-2024 11:08-0400 Body weight 27.8 kg/m2 LISSETT GREENWOOD MD [address] [place] [address] 03-20-2024 11:05-0400 Body height 172.7 cm LISSETT GREENWOOD MD [address] [place] [address] 03-20-2024 11:05-0400 Body weight 82.9 kg LISSETT GREENWOOD MD [address] [place] [address] 03-20-2024 11:05-0400 Body weight 27.8 kg/m2 LISSETT GREENWOOD MD [address] [place] [address] 03-20-2024 07:06-0400 Body weight 85.7 kg LISSETT GREENWOOD MD [address] [place] [address] 11-14-2022 07:07-0400 Body height 175.26 cm Juan Jodie DO Work Phone: [facility]; [facility] Work Phone: 11-14-2022 07:07-0400 Body mass index (BMI) [Ratio] 26.16 kg/m2 Juan Jodie DO Work Phone: [facility]; [facility] Work Phone: 11-14-2022 07:07-0400 Body surface area Derived from formula 1.96 m2 Juna Jodie DO Work Phone: [facility]; [facility] Work Phone: 11-14-2022 07:07-0400 Body temperature 78.3 [degF] Juan Jodie DO Work Phone: [facility]; [facility] Work Phone: 11-14-2022 07:07-0400 Body weight 80.34 kg Juan Jodie DO Work Phone: [facility]; [facility] Work Phone: 11-14-2022 07:07-0400 Diastolic blood pressure 78 mm[Hg] Juan Jodie DO Work Phone: [facility]; [facility] Work Phone: 11-14-2022 07:07-0400 Heart rate 100 /min Juan Jodie DO Work Phone: [facility]; [facility] Work Phone: 11-14-2022 07:07-0400 Respiratory rate 18 /min Juan Jodie DO Work Phone: [facility]; [facility] Work Phone: 11-14-2022 07:07-0400 SaO2% (BldA) [Mass fraction] 99 % Juan Jodie DO Work Phone: [facility]; [facility] Work Phone: 11-14-2022 07:07-0400 Systolic blood pressure 122 mm[Hg] Juan Jodie DO Work Phone: [facility]; [facility] Work Phone: 08-08-2022 07:17-0500 Body height 175.26 cm [facility]; [facility] Work Phone: 08-08-2022 07:17-0500 Body mass index (BMI) [Ratio] 25.6 kg/m2 [facility]; [facility] Work Phone: 08-08-2022 07:17-0500 Body surface area Derived from formula 1.94 m2 [facility]; [facility] Work Phone: 08-08-2022 07:17-0500 Body temperature 97.6 [degF] [facility]; [facility] Work Phone: 08-08-2022 07:17-0500 Body weight 78.64 kg [facility]; [facility] Work Phone: 08-08-2022 07:17-0500 Diastolic blood pressure 80 mm[Hg] [facility]; [facility] Work Phone: 08-08-2022 07:17-0500 Heart rate 101 /min [facility]; [facility] Work Phone: 08-08-2022 07:17-0500 Respiratory rate 16 /min [facility]; [facility] Work Phone: 08-08-2022 07:17-0500 SaO2% (BldA) [Mass fraction] 97 % [facility]; [facility] Work Phone: 08-08-2022 07:17-0500 Systolic blood pressure 120 mm[Hg] [facility]; [facility] Work Phone: 05-02-2022 07:56-0400 Body height 175.26 cm [facility]; [facility] Work Phone: 05-02-2022 07:56-0400 Body mass index (BMI) [Ratio] 25.6 kg/m2 [facility]; [facility] Work Phone: 05-02-2022 07:56-0400 Body surface area Derived from formula 1.94 m2 [facility]; [facility] Work Phone: 05-02-2022 07:56-0400 Body temperature 96.9 [degF] [facility]; [facility] Work Phone: 05-02-2022 07:56-0400 Body weight 78.64 kg [facility]; [facility] Work Phone: 05-02-2022 07:56-0400 Diastolic blood pressure 74 mm[Hg] [facility]; [facility] Work Phone: 05-02-2022 07:56-0400 Heart rate 93 /min [facility]; [facility] Work Phone: 05-02-2022 07:56-0400 Respiratory rate 16 /min [facility]; [facility] Work Phone: 05-02-2022 07:56-0400 SaO2% (BldA) [Mass fraction] 95 % [facility]; [facility] Work Phone: 05-02-2022 07:56-0400 Systolic blood pressure 114 mm[Hg] [facility]; [facility] Work Phone: 04-11-2022 07:13-0400 Body temperature 99.5 [degF] [facility]; [facility] Work Phone: 04-11-2022 07:13-0400 Diastolic blood pressure 70 mm[Hg] [facility]; [facility] Work Phone: Comment on above: Patient Position: Si tting; Cuff Location: Left Arm; Cuff Size: Standard 04-11-2022 07:13-0400 Heart rate 93 /min [facility]; [facility] Work Phone: Comment on above: Pattern: Regular 04-11-2022 07:13-0400 Respiratory rate 16 /min [facility]; [facility] Work Phone: Comment on above: Pattern: Unlabored 04-11-2022 07:13-0400 SaO2% (BldA) [Mass fraction] 95 % [facility]; [facility] Work Phone: Comment on above: Room air 04-11-2022 07:13-0400 Systolic blood pressure 118 mm[Hg] Chadwick Parker [facility]; [facility] Work Phone: Comment on above: Patient Position: Si tting; Cuff Location: Left Arm; Cuff Size: Standard 01-25-2022 07:18-0400 Body height 175.26 cm Ruby Wild [facility]; [facility] Work Phone: Comment on above: no vs taken as this is phone encounter due to covid 01-25-2022 07:18-0400 Body mass index (BMI) [Ratio] 26.6 kg/m2 Rubybarry Wild [facility]; [facility] Work Phone: Comment on above: no vs taken as this is phone encounter due to covid 01-25-2022 07:18-0400 Body surface area Derived from formula 1.98 m2 Ruby [facility]; [facility] Work Phone: Comment on above: no vs taken as this is phone encounter due to covid 01-25-2022 07:18-0400 Body weight 81.7 kg Ruby Wild [facility]; [facility] Work Phone: Comment on above: no vs taken as this is phone encounter due to covid 10-05-2021 07:09-0400 Body height 175.26 cm Rubybarry Wild [facility]; [facility] Work Phone: Comment on above: no vs taken as this is phone encounter due to covid 10-05-2021 07:09-0400 Body mass index (BMI) [Ratio] 26.6 kg/m2 Ruby Alisonius [facility]; [facility] Work Phone: Comment on above: no vs taken as this is phone encounter due to covid 10-05-2021 07:09-0400 Body surface area Derived from formula 1.98 m2 Ruby Wild [facility]; [facility] Work Phone: Comment on above: no vs taken as this is phone encounter due to covid 10-05-2021 07:09-0400 Body weight 81.7 kg Ruby Wild [facility]; [facility] Work Phone: Comment on above: no vs taken as this is phone encounter due to covid 06-07-2021 08:12-0500 Body height 175.26 cm Toyin Peggy [employer] [facility]; [facility] Work Phone: Comment on above: none reported, tete mcnally 06-07-2021 08:12-0500 Body mass index (BMI) [Ratio] 27.49 kg/m2 Toyin Peggy [employer] [facility]; [facility] Work Phone: Comment on above: none reported, tete mcnally 06-07-2021 08:12-0500 Body surface area Derived from formula 2 m2 Toyin Peggy [employer] [facility]; [facility] Work Phone: Comment on above: none reported, tete mcnally 06-07-2021 08:12-0500 Body weight 84.43 kg Toyin Peggy [employer] [facility]; [facility] Work Phone: Comment on above: none reported, tete mcnally 06-01-2021 07:27-0500 Body height 175.26 cm Manuela Slarb [employer] [facility]; [facility] Work Phone: 06-01-2021 07:27-0500 Body mass index (BMI) [Ratio] 27.49 kg/m2 Manuela Slarb [employer] [facility]; [facility] Work Phone: 06-01-2021 07:27-0500 Body surface area Derived from formula 2 m2 Manuela Slarb [employer] [facility]; [facility] Work Phone: 06-01-2021 07:27-0500 Body temperature 97.1 [degF] Manuela Slarb [employer] [facility]; [facility] Work Phone: 06-01-2021 07:27-0500 Body weight 84.43 kg Manuela Rodríguezrb [employer] [facility]; [facility] Work Phone: 06-01-2021 07:27-0500 Diastolic blood pressure 82 mm[Hg] Manuela Slarb [employer] [facility]; [facility] Work Phone: Comment on above: Patient Position: Si tting; Cuff Location: Left Arm; Cuff Size: Standard 06-01-2021 07:27-0500 Heart rate 107 /min Manuela Slarb [employer] [facility]; [facility] Work Phone: Comment on above: Pattern: Regular 06-01-2021 07:27-0500 Respiratory rate 16 /min Manuela Slarb [employer] [facility]; [facility] Work Phone: Comment on above: Pattern: Unlabored 06-01-2021 07:27-0500 SaO2% (BldA) [Mass fraction] 95 % Manuela Slarb [employer] [facility]; [facility] Work Phone: Comment on above: Room air 06-01-2021 07:27-0500 Systolic blood pressure 126 mm[Hg] Manuela Slarb [employer] [facility]; [facility] Work Phone: Comment on above: Patient Position: Si tting; Cuff Location: Left Arm; Cuff Size: Standard 01-26-2021 07:54-0400 Body height 175.26 cm Ruby Wild [facility]; [facility] Work Phone: 01-26-2021 07:54-0400 Body mass index (BMI) [Ratio] 26.32 kg/m2 Ruby Wild [facility]; [facility] Work Phone: 01-26-2021 07:54-0400 Body surface area Derived from formula 1.97 m2 Ruby Wild [facility]; [facility] Work Phone: 01-26-2021 07:54-0400 Body temperature 97.3 [degF] Ruby Wild [facility]; [facility] Work Phone: Comment on above: Method: Infrared 01-26-2021 07:54-0400 Body weight 80.85 kg Ruby Wild [employer] [facility]; [facility] Work Phone: 01-26-2021 07:54-0400 Diastolic blood pressure 78 mm[Hg] Ruby Wild CMA [facility]; [facility] Work Phone: Comment on above: Patient Position: Si tting; Cuff Location: Left Arm; Cuff Size: Standard 01-26-2021 07:54-0400 Heart rate 93 /min Ruby Wild [facility]; [facility] Work Phone: Comment on above: Pattern: Regular 01-26-2021 07:54-0400 Respiratory rate 18 /min Ruby Wild [facility]; [facility] Work Phone: Comment on above: Pattern: Unlabored 01-26-2021 07:54-0400 SaO2% (BldA) [Mass fraction] 98 % Ruby Wild [facility]; [facility] Work Phone: Comment on above: Room air 01-26-2021 07:54-0400 Systolic blood pressure 122 mm[Hg] Ruby Wild [facility]; [facility] Work Phone: Comment on above: Patient Position: Si tting; Cuff Location: Left Arm; Cuff Size: Standard 09-22-2020 07:10-0400 BMI (Body Mass Index) 22.78 kg/m2 Ruby Wild [facility]; [facility] Work Phone: 09-22-2020 07:10-0400 Body Temperature 97.2 [degF] Ruby Wild [facility]; [facility] Work Phone: Comment on above: Method: Infrared 09-22-2020 07:10-0400 Body weight 69.97 kg Ruby Wild [facility]; [facility] Work Phone: 09-22-2020 07:10-0400 BP Diastolic 70 mm[Hg] Ruby Wild [facility]; [facility] Work Phone: Comment on above: Patient Position: Si tting; Cuff Location: Left Arm; Cuff Size: Standard 09-22-2020 07:10-0400 BP Systolic 102 mm[Hg] Ruby Wild [facility]; [facility] Work Phone: Comment on above: Patient Position: Si tting; Cuff Location: Left Arm; Cuff Size: Standard 09-22-2020 07:10-0400 BSA (Body Surface Area) 1.85 m2 Ruby Wild [facility]; [facility] Work Phone: 09-22-2020 07:10-0400 Height 175.26 cm Ruby Wild [facility]; [facility] Work Phone: 09-22-2020 07:10-0400 Pulse (Heart Rate) 104 /min Ruby Wild [facility]; [facility] Work Phone: Comment on above: Pattern: Regular 09-22-2020 07:10-0400 Pulse Oximetry 99 % Juan Chan [facility]; [facility] Work Phone: Comment on above: Room air 09-22-2020 07:10-0400 Respiratory Rate 16 /min Ruby Wild [facility]; [facility] Work Phone: Comment on above: Pattern: Unlabored 09-22-2020 07:10-0400 SaO2% (BldA) [Mass fraction] 99 % Ruby Wild [facility]; [facility] Work Phone: Comment on above: Room air 06-21-2020 11:14-0500 BMI (Body Mass Index) 22.78 kg/m2 [facility]; [facility] Work Phone: 06-21-2020 11:14-0500 Body weight 69.97 kg [facility]; [facility] Work Phone: 06-21-2020 11:14-0500 BSA (Body Surface Area) 1.85 m2 [facility]; [facility] Work Phone: 06-21-2020 11:14-0500 Height 175.26 cm Radha Valentin [facility]; [facility] Work Phone: 06-15-2020 07:13-0500 BMI (Body Mass Index) 22.78 kg/m2 Pearl Rueda [facility]; [facility] Work Phone: 06-15-2020 07:13-0500 Body weight 69.97 kg Pearl Rueda [facility]; [facility] Work Phone: 06-15-2020 07:13-0500 BSA (Body Surface Area) 1.85 m2 Pearl Rueda [facility]; [facility] Work Phone: 06-15-2020 07:130500 Height 175.26 cm Pearl Rueda [facility]; [facility] Work Phone: 03-23-2020 07:29-0400 BMI (Body Mass Index) 24.4 kg/m2 Ruby Wild [facility] Work Phone: 03-23-2020 07:29-0400 Body Temperature 97.1 [degF] Ruby Wild [facility] Work Phone: Comment on above: Method: Infrared 03-23-2020 07:29-0400 Body weight 74.96 kg Ruby Wild [facility] Work Phone: 03-23-2020 07:29-0400 BP Diastolic 74 mm[Hg] Ruby Wild [facility] Work Phone: Comment on above: Patient Position: Si tting; Cuff Location: Left Arm; Cuff Size: Standard 03-23-2020 07:29-0400 BP Systolic 118 mm[Hg] Ruby Wild [facility] Work Phone: Comment on above: Patient Position: Si tting; Cuff Location: Left Arm; Cuff Size: Standard 03-23-2020 07:29-0400 BSA (Body Surface Area) 1.9 m2 Ruby Wild [facility] Work Phone: 03-23-2020 07:29-0400 Height 175.26 cm Ruby Wild [facility] Work Phone: 03-23-2020 07:29-0400 Pulse (Heart Rate) 108 /min Ruby Wild [facility] Internal Medicine Work Phone: Comment on above: Pattern: Regular 03-23-2020 07:29-0400 Pulse Oximetry 98 % Juan Chan [facility] Internal Medicine Work Phone: Comment on above: Room air 03-23-2020 07:29-0400 Respiratory Rate 16 /min Ruby Wild [facility] Internal Medicine Work Phone: Comment on above: Pattern: Unlabored 03-23-2020 07:29-0400 SaO2% (BldA) [Mass fraction] 98 % Ruby Wild [facility]; [facility] Work Phone: Comment on above: Room air 12-08-2019 08:14-0400 Body height 175.26 cm Ruby Wild [facility] Work Phone: 12-08-2019 08:14-0400 Body mass index (BMI) [Ratio] 25.73 kg/m2 Ruby Wild [facility] Work Phone: 12-08-2019 08:14-0400 Body surface area Derived from formula 1.95 m2 Ruby Wild [facility] Internal Medicine Work Phone: 12-08-2019 08:14-0400 Body temperature 96.4 [degF] Ruby Wild [facility] Internal Medicine Work Phone: Comment on above: Method: Temporal 12-08-2019 08:14-0400 Body weight 79.04 kg Ruby Wild [facility] Internal Medicine Work Phone: 12-08-2019 08:14-0400 Diastolic blood pressure 78 mm[Hg] Ruby Wild [facility] Internal Medicine Work Phone: Comment on above: Patient Position: Si tting; Cuff Location: Left Arm; Cuff Size: Standard 12-08-2019 08:14-0400 Heart rate 104 /min Ruby Wild [employer] [facility] Work Phone: Comment on above: Pattern: Regular 12-08-2019 08:14-0400 Pulse Oximetry 98 % Juan Chan [facility] Internal Medicine Work Phone: Comment on above: Room air 12-08-2019 08:14-0400 Respiratory rate 18 /min Ruby Wild [facility] Internal Medicine Work Phone: Comment on above: Pattern: Unlabored 12-08-2019 08:14-0400 SaO2% (BldA) [Mass fraction] 98 % Ruby Wild [facility] Work Phone: Comment on above: Room air 12-08-2019 08:14-0400 Systolic blood pressure 114 mm[Hg] Ruby Wild [facility] Internal Medicine Work Phone: Comment on above: Patient Position: Si tting; Cuff Location: Left Arm; Cuff Size: Standard 09-01-2019 09:03-0500 Body height 175.26 cm Manuela Slarb [facility] Internal Medicine Work Phone: 09-01-2019 09:03-0500 Body mass index (BMI) [Ratio] 23.66 kg/m2 Manuela Slarb [facility] Work Phone: 09-01-2019 09:03-0500 Body surface area Derived from formula 1.88 m2 Manuela Slarb [facility] Internal Medicine Work Phone: 09-01-2019 09:03-0500 Body weight 72.69 kg Manuela Slarb [facility] Work Phone: 09-01-2019 09:03-0500 Diastolic blood pressure 76 mm[Hg] Manuela Slarb [facility] Work Phone: Comment on above: Patient Position: Si tting; Cuff Location: Left Arm; Cuff Size: Standard 09-01-2019 09:03-0500 Heart rate 109 /min Manuela Slarb [facility] Internal Medicine Work Phone: Comment on above: Pattern: Regular 09-01-2019 09:03-0500 Pulse Oximetry 97 % Juan Chan [facility] Work Phone: Comment on above: Room air 09-01-2019 09:03-0500 Respiratory rate 16 /min Manuela Azevedo LPN [facility] Work Phone: Comment on above: Pattern: Unlabored 09-01-2019 09:03-0500 SaO2% (BldA) [Mass fraction] 97 % Manuela Azevedo LPN [facility] Work Phone: Comment on above: Room air 09-01-2019 09:03-0500 Systolic blood pressure 118 mm[Hg] Manuela Azevedo LPN [facility] Work Phone: Comment on above: Patient Position: Si tting; Cuff Location: Left Arm; Cuff Size: Standard 04-29-2019 11:57-0400 BMI (Body Mass Index) 23.48 kg/m2 Daphne Serna RN [facility] Work Phone: 04-29-2019 11:57-0400 Body Temperature 98.4 [degF] Daphne Serna RN [facility] Work Phone: Comment on above: Method: Temporal 04-29-2019 11:57-0400 Body weight 72.12 kg Daphne Serna RN [facility] Work Phone: 04-29-2019 11:57-0400 BP Diastolic 80 mm[Hg] Daphne Serna RN [facility] Work Phone: Comment on above: Patient Position: Si tting; Cuff Location: Left Arm; Cuff Size: Standard 04-29-2019 11:57-0400 BP Systolic 120 mm[Hg] Daphne Serna RN [facility] Work Phone: Comment on above: Patient Position: Si tting; Cuff Location: Left Arm; Cuff Size: Standard 04-29-2019 11:57-0400 BSA (Body Surface Area) 1.87 m2 Daphne Serna RN [facility] Work Phone: 04-29-2019 11:57-0400 Height 175.26 cm Daphne Serna RN [facility] Work Phone: 04-29-2019 11:57-0400 Pulse (Heart Rate) 93 /min Daphne Serna RN [facility] Work Phone: Comment on above: Pattern: Regular 04-29-2019 11:57-0400 Respiratory Rate 18 /min Daphne Serna RN [facility] Work Phone: Comment on above: Pattern: Unlabored 12-24-2018 11:42-0400 BMI (Body Mass Index) 22.91 kg/m2 Radha Knapp [facility] Internal Medicine Work Phone: 12-24-2018 11:42-0400 Body weight 70.36 kg Radha Knapp [facility] Internal Medicine Work Phone: 12-24-2018 11:42-0400 BP Diastolic 78 mm[Hg] Radha Knapp [facility] Internal Medicine Work Phone: Comment on above: Patient Position: Si tting; Cuff Location: Left Arm; Cuff Size: Standard 12-24-2018 11:42-0400 BP Systolic 122 mm[Hg] Radha Knapp [facility] Internal Medicine Work Phone: Comment on above: Patient Position: Si tting; Cuff Location: Left Arm; Cuff Size: Standard 12-24-2018 11:42-0400 BSA (Body Surface Area) 1.85 m2 Radha Knapp [facility] Internal Medicine Work Phone: 12-24-2018 11:42-0400 Height 175.26 cm Radha Knapp [facility] Internal Medicine Work Phone: 12-24-2018 11:42-0400 Pulse (Heart Rate) 88 /min Radha Ra [facility] Internal Medicine Work Phone: Comment on above: Pattern: Regular 12-24-2018 11:42-0400 Pulse Oximetry 96 % Juan Chan [facility] Internal Medicine Work Phone: Comment on above: Room air 12-24-2018 11:42-0400 Respiratory Rate 18 /min Radha Knapp [facility] Internal Medicine Work Phone: Comment on above: Pattern: Unlabored 12-24-2018 11:42-0400 SaO2% (BldA) [Mass fraction] 96 % Radha [employer] [facility] Internal Medicine Work Phone: Comment on above: Room air 05-14-2018 13:33-0500 BMI (Body Mass Index) 23.66 kg/m2 Ruby Wild CMA [facility] Internal Medicine Work Phone: 05-14-2018 13:33-0500 Body Temperature 97 [degF] Ruby Wild CMA [facility] Internal Medicine Work Phone: Comment on above: Method: Axillary 05-14-2018 13:33-0500 Body weight 72.69 kg Ruby Wild [facility] Internal Medicine Work Phone: 05-14-2018 13:33-0500 BP Diastolic 79 mm[Hg] Ruby Wild [facility] Internal Medicine Work Phone: Comment on above: Patient Position: Si tting; Cuff Location: Left Arm; Cuff Size: Standard 05-14-2018 13:33-0500 BP Systolic 132 mm[Hg] Ruby Wild [facility] Internal Medicine Work Phone: Comment on above: Patient Position: Si tting; Cuff Location: Left Arm; Cuff Size: Standard 05-14-2018 13:33-0500 BSA (Body Surface Area) 1.88 m2 Ruby Wild [facility] Internal Medicine Work Phone: 05-14-2018 13:33-0500 Height 175.26 cm Ruby Wild [facility] Internal Medicine Work Phone: 05-14-2018 13:33-0500 Pulse (Heart Rate) 81 /min Ruby Wild [facility] Internal Medicine Work Phone: Comment on above: Pattern: Regular 05-14-2018 13:33-0500 Pulse Oximetry 97 % Juan Johnsonon [facility] Internal Medicine Work Phone: Comment on above: Room air 05-14-2018 13:33-0500 Respiratory Rate 16 /min Ruby Wild [facility] Internal Medicine Work Phone: Comment on above: Pattern: Unlabored 05-14-2018 13:33-0500 SaO2% (BldA) [Mass fraction] 97 % Ruby Wild [facility] Internal Medicine Work Phone: Comment on above: Room air 05-14-2018 13:33-0500 Weight 72.69 kg Juan Chan [facility] Internal Medicine Work Phone: 04-16-2018 13:02-0400 BMI (Body Mass Index) 24.4 kg/m2 Ruby Wild [facility] Internal Medicine Work Phone: 04-16-2018 13:02-0400 Body Temperature 96.6 [degF] Ruby Wild [facility] Internal Medicine Work Phone: Comment on above: Method: Temporal 04-16-2018 13:02-0400 Body weight 74.96 kg Ruby Wild [facility] Internal Medicine Work Phone: 04-16-2018 13:02-0400 BP Diastolic 81 mm[Hg] Ruby Wild [facility] Internal Medicine Work Phone: Comment on above: Patient Position: Si tting; Cuff Location: Left Arm; Cuff Size: Standard 04-16-2018 13:02-0400 BP Systolic 123 mm[Hg] Ruby Wild [facility] Internal Medicine Work Phone: Comment on above: Patient Position: Si tting; Cuff Location: Left Arm; Cuff Size: Standard 04-16-2018 13:02-0400 BSA (Body Surface Area) 1.9 m2 Ruby Wild [facility] Internal Medicine Work Phone: 04-16-2018 13:02-0400 Height 175.26 cm Ruby Wild [facility] Internal Medicine Work Phone: 04-16-2018 13:02-0400 Pulse (Heart Rate) 70 /min Ruby Wild [facility] Internal Medicine Work Phone: Comment on above: Pattern: Regular 04-16-2018 13:02-0400 Pulse Oximetry 96 % Juan Chan [facility] Internal Medicine Work Phone: Comment on above: Room air 04-16-2018 13:02-0400 Respiratory Rate 18 /min Ruby Wild [facility] Internal Medicine Work Phone: Comment on above: Pattern: Unlabored 04-16-2018 13:02-0400 SaO2% (BldA) [Mass fraction] 96 % Ruby Wild CMA [facility] Internal Medicine Work Phone: Comment on above: Room air 04-16-2018 13:02-0400 Weight 74.96 kg Juan Chan [facility] Internal Medicine Work Phone: 11-17-2017 10:48-0400 BMI (Body Mass Index) 24.7 kg/m2 [facility] Internal Medicine Work Phone: 11-17-2017 10:48-0400 Body weight 75.86 kg [facility] Internal Medicine Work Phone: 11-17-2017 10:48-0400 BP Diastolic 98 mm[Hg] [facility] Internal Medicine Work Phone: Comment on above: Patient Position: Si tting; Cuff Location: Left Arm; Cuff Size: Standard 11-17-2017 10:48-0400 BP Systolic 154 mm[Hg] [facility] Internal Medicine Work Phone: Comment on above: Patient Position: Si tting; Cuff Location: Left Arm; Cuff Size: Standard 11-17-2017 10:48-0400 BSA (Body Surface Area) 1.91 m2 [facility] Internal Medicine Work Phone: 11-17-2017 10:48-0400 Height 175.26 cm [facility] Medicine Work Phone: 11-17-2017 10:48-0400 Pulse (Heart Rate) 102 /min [facility] Internal Medicine Work Phone: Comment on above: Pattern: Regular 11-17-2017 10:48-0400 Pulse Oximetry 95 % Juan Chan [facility] Internal Medicine Work Phone: Comment on above: Room air 11-17-2017 10:48-0400 Respiratory Rate 18 /min [facility] Internal Medicine Work Phone: Comment on above: Pattern: Unlabored 11-17-2017 10:48-0400 SaO2% (BldA) [Mass fraction] 95 % [facility] Internal Medicine Work Phone: Comment on above: Room air 11-17-2017 10:48-0400 Weight 75.86 kg Juan Chan [facility] Work Phone: 11-03-2017 10:46-0400 BMI (Body Mass Index) 24.68 kg/m2 Violeta Pak RN [facility] Work Phone: 11-03-2017 10:46-0400 Body weight 75.81 kg Violeta Pak RN [facility] Work Phone: 11-03-2017 10:46-0400 BP Diastolic 78 mm[Hg] Violeta Pak RN [facility] Work Phone: Comment on above: Patient Position: Si tting; Cuff Location: Left Arm; Cuff Size: Large 11-03-2017 10:46-0400 BP Systolic 136 mm[Hg] Violeta Pak RN [facility] Work Phone: Comment on above: Patient Position: Si tting; Cuff Location: Left Arm; Cuff Size: Large 11-03-2017 10:46-0400 BSA (Body Surface Area) 1.91 m2 Violeta Pak RN [facility] Work Phone: 11-03-2017 10:46-0400 Height 175.26 cm Violeta Pak RN [facility] Work Phone: 11-03-2017 10:46-0400 Pulse (Heart Rate) 104 /min Violeta Pak RN [facility] Work Phone: Comment on above: Pattern: Regular 11-03-2017 10:46-0400 Pulse Oximetry 98 % Juan Johnsonon [facility] Work Phone: Comment on above: Room air 11-03-2017 10:46-0400 Respiratory Rate 18 /min Violeta Pak RN [facility] Work Phone: Comment on above: Pattern: Unlabored 11-03-2017 10:46-0400 SaO2% (BldA) [Mass fraction] 98 % Violeta Pak RN [facility] Work Phone: Comment on above: Room air 11-03-2017 10:46-0400 Weight 75.81 kg Juan Chan [facility] Work Phone: 10-27-2017 13:31-0400 BMI (Body Mass Index) 24.68 kg/m2 Violeta Pak RN [facility] Work Phone: 10-27-2017 13:31-0400 Body weight 75.81 kg Violeta Pak RN [facility] Work Phone: 10-27-2017 13:31-0400 BP Diastolic 84 mm[Hg] Violeta Pak RN [facility] Work Phone: Comment on above: Patient Position: Si tting; Cuff Location: Left Arm; Cuff Size: Large 10-27-2017 13:31-0400 BP Systolic 126 mm[Hg] Violeta Pak RN [facility] Work Phone: Comment on above: Patient Position: Si tting; Cuff Location: Left Arm; Cuff Size: Large 10-27-2017 13:31-0400 BSA (Body Surface Area) 1.91 m2 Violeta Pak RN [facility] Work Phone: 10-27-2017 13:31-0400 Height 175.26 cm Violeta Pak RN [facility] Work Phone: 10-27-2017 13:31-0400 Pulse (Heart Rate) 95 /min Violeta Pak RN [facility] Work Phone: Comment on above: Pattern: Regular 10-27-2017 13:31-0400 Pulse Oximetry 100 % Juan Jodie [facility] Work Phone: Comment on above: Room air 10-27-2017 13:31-0400 Respiratory Rate 18 /min Violeta Pak RN [facility] Work Phone: Comment on above: Pattern: Unlabored 10-27-2017 13:31-0400 SaO2% (BldA) [Mass fraction] 100 % Violeta Pak RN [facility] Work Phone: Comment on above: Room air 10-27-2017 13:31-0400 Weight 75.81 kg Juan Jodie [facility] Work Phone: 03-06-2017 10:38-0400 BMI (Body Mass Index) 25.29 kg/m2 Violeta Pak RN [facility] Work Phone: 03-06-2017 10:38-0400 Body weight 77.68 kg Violeta Pak RN [facility] Work Phone: 03-06-2017 10:38-0400 BP Diastolic 82 mm[Hg] Violeta Pak RN [facility] Work Phone: Comment on above: Patient Position: Si tting; Cuff Location: Left Arm; Cuff Size: Large 03-06-2017 10:38-0400 BP Systolic 124 mm[Hg] Violeta Pak RN [facility] Work Phone: Comment on above: Patient Position: Si tting; Cuff Location: Left Arm; Cuff Size: Large 03-06-2017 10:38-0400 BSA (Body Surface Area) 1.93 m2 Violeta Pak RN [facility] Work Phone: 03-06-2017 10:38-0400 Height 175.26 cm Violeta Pak RN [facility] Work Phone: 03-06-2017 10:38-0400 Pulse (Heart Rate) 83 /min Violeta Pak RN [facility] Work Phone: Comment on above: Pattern: Regular 03-06-2017 10:38-0400 Pulse Oximetry 97 % Juan Chan [facility] Work Phone: Comment on above: Room air 03-06-2017 10:38-0400 Respiratory Rate 18 /min Violeta Pak RN [facility] Work Phone: Comment on above: Pattern: Unlabored 03-06-2017 10:38-0400 SaO2% (BldA) [Mass fraction] 97 % Violeta Pak RN [facility] Work Phone: Comment on above: Room air 03-06-2017 10:38-0400 Weight 77.68 kg Juan Chan [facility] Work Phone: 10-09-2016 11:26-0400 BMI (Body Mass Index) 24.96 kg/m2 Manuela Azevedo LPN [facility] Work Phone: 10-09-2016 11:26-0400 Body Temperature 97.6 [degF] Manuela Azevedo LPN [facility] Work Phone: 10-09-2016 11:26-0400 Body weight 76.66 kg Manuela Rodríguezrb [employer] [facility] Work Phone: 10-09-2016 11:26-0400 BP Diastolic 84 mm[Hg] Manuela Slarb [employer] [facility] Work Phone: Comment on above: Patient Position: Si tting; Cuff Location: Left Arm; Cuff Size: Standard 10-09-2016 11:26-0400 BP Systolic 132 mm[Hg] Manuela Slarb [employer] [facility] Work Phone: Comment on above: Patient Position: Si tting; Cuff Location: Left Arm; Cuff Size: Standard 10-09-2016 11:0400 BSA (Body Surface Area) 1.92 m2 Manuela Slarb [employer] [facility] Work Phone: 10-09-2016 11:26-0400 Height 175.26 cm Manuela Slarb [employer] [facility] Work Phone: 10-09-2016 11:26-0400 Pulse (Heart Rate) 90 /min Manuela Annerb [employer] [facility] Work Phone: Comment on above: Pattern: Regular 10-09-2016 11:26-0400 Pulse Oximetry 98 % Juan Chan [facility] Work Phone: Comment on above: Room air 10-09-2016 11:26-0400 Respiratory Rate 17 /min Manuela Slarb [employer] [facility] Work Phone: Comment on above: Pattern: Unlabored 10-09-2016 11:26-0400 SaO2% (BldA) [Mass fraction] 98 % Manuela Slarb [employer] [facility] Work Phone: Comment on above: Room air 10-09-2016 11:26-0400 Weight 76.66 kg Juan Chan [facility] Work Phone: 03-26-2016 09:12-0400 BMI (Body Mass Index) 23.78 kg/m2 Violeta Pak RN [facility] Work Phone: 03-26-2016 09:12-0400 Body weight 73.03 kg Violeta Pak RN [facility] Work Phone: 03-26-2016 09:12-0400 BP Diastolic 92 mm[Hg] Violeta Pak RN [facility] Work Phone: Comment on above: Patient Position: Si tting; Cuff Location: Left Arm; Cuff Size: Large 03-26-2016 09:12-0400 BP Systolic 138 mm[Hg] Violeta Pak RN [facility] Work Phone: Comment on above: Patient Position: Si tting; Cuff Location: Left Arm; Cuff Size: Large 03-26-2016 09:12-0400 BSA (Body Surface Area) 1.88 m2 Violeta Pak RN [facility] Work Phone: 03-26-2016 09:12-0400 Height 175.26 cm Violeta Pak RN [facility] Work Phone: 03-26-2016 09:12-0400 Pulse (Heart Rate) 97 /min Violeta Pak RN [facility] Work Phone: Comment on above: Pattern: Regular 03-26-2016 09:12-0400 Pulse Oximetry 97 % Juan Chan [facility] Work Phone: Comment on above: Room air 03-26-2016 09:12-0400 Respiratory Rate 18 /min Violeta Pak RN [facility] Work Phone: Comment on above: Pattern: Unlabored 03-26-2016 09:12-0400 SaO2% (BldA) [Mass fraction] 97 % Violeta Pak RN [facility] Work Phone: Comment on above: Room air 03-26-2016 09:12-0400 Weight 73.03 kg Juan Chan [facility] Work Phone: 06-21-2015 14:04-0500 BMI (Body Mass Index) 23.09 kg/m2 Tiffany Harp [facility] Work Phone: 06-21-2015 14:04-0500 Body Temperature 99 [degF] Tiffany Harp [facility] Work Phone: Comment on above: Method: Oral 06-21-2015 14:04-0500 Body weight 70.93 kg Tiffany Harp [facility] Work Phone: 06-21-2015 14:04-0500 BP Diastolic 40 mm[Hg] Tiffany Harp [facility] Work Phone: Comment on above: Patient Position: Si tting; Cuff Location: Left Arm; Cuff Size: Standard 06-21-2015 14:04-0500 BP Systolic 120 mm[Hg] Tiffany Harp [facility] Work Phone: Comment on above: Patient Position: Si tting; Cuff Location: Left Arm; Cuff Size: Standard 06-21-2015 14:04-0500 BSA (Body Surface Area) 1.86 m2 Tiffany Harp [facility] Work Phone: 06-21-2015 14:04-0500 Height 175.26 cm Tiffany Harp [facility] Work Phone: 06-21-2015 14:04-0500 Pulse (Heart Rate) 88 /min Tiffany Harp [facility] Work Phone: Comment on above: Pattern: Regular 06-21-2015 14:04-0500 Pulse Oximetry 98 % Juan Chan [facility] Work Phone: Comment on above: Room air 06-21-2015 14:04-0500 Respiratory Rate 16 /min Tiffany Harp [facility] Work Phone: Comment on above: Pattern: Unlabored 06-21-2015 14:04-0500 SaO2% (BldA) [Mass fraction] 98 % Tiffany Harp [facility] Work Phone: Comment on above: Room air 06-21-2015 14:04-0500 Weight 70.93 kg Juan Chan [facility] Work Phone: 12-29-2014 08:48-0400 BMI (Body Mass Index) 23.83 kg/m2 Violeta Pak RN [facility] Work Phone: 12-29-2014 08:48-0400 Body weight 73.2 kg Violeta Pak RN [facility] Work Phone: 12-29-2014 08:48-0400 BP Diastolic 78 mm[Hg] Violeta Pak RN [facility] Work Phone: Comment on above: Patient Position: Si tting; Cuff Location: Left Arm; Cuff Size: Large 12-29-2014 08:48-0400 BP Systolic 122 mm[Hg] Violeta Pak RN [facility] Work Phone: Comment on above: Patient Position: Si tting; Cuff Location: Left Arm; Cuff Size: Large 12-29-2014 08:48-0400 BSA (Body Surface Area) 1.89 m2 Violeta Pak RN [facility] Work Phone: 12-29-2014 08:48-0400 Height 175.26 cm Violeta Pak RN [facility] Work Phone: 12-29-2014 08:48-0400 Pulse (Heart Rate) 116 /min Violeta Pak RN [facility] Work Phone: Comment on above: Pattern: Regular 12-29-2014 08:48-0400 Pulse Oximetry 98 % Juan Chan [facility] Work Phone: Comment on above: Room air 12-29-2014 08:48-0400 Respiratory Rate 18 /min Violeta Pak RN [facility] Work Phone: Comment on above: Pattern: Unlabored 12-29-2014 08:48-0400 SaO2% (BldA) [Mass fraction] 98 % Violeta Pak RN [facility] Work Phone: Comment on above: Room air 12-29-2014 08:48-0400 Weight 73.2 kg Juan Chan [facility] Work Phone: 11-14-2014 15:37-0400 BMI (Body Mass Index) 23.11 kg/m2 Violeta Pak RN [facility] Work Phone: 11-14-2014 15:37-0400 Body weight 70.99 kg Violeta Pak RN [facility] Work Phone: 11-14-2014 15:37-0400 BP Diastolic 78 mm[Hg] Violeta Pak RN [facility] Work Phone: Comment on above: Patient Position: Si tting; Cuff Location: Left Arm; Cuff Size: Standard 11-14-2014 15:37-0400 BP Systolic 128 mm[Hg] Violeta Pak RN [facility] Work Phone: Comment on above: Patient Position: Si tting; Cuff Location: Left Arm; Cuff Size: Standard 11-14-2014 15:37-0400 BSA (Body Surface Area) 1.86 m2 Violeta Pak RN [facility] Work Phone: 11-14-2014 15:37-0400 Height 175.26 cm Violeta Pak RN [facility] Work Phone: 11-14-2014 15:37-0400 Pulse (Heart Rate) 73 /min Violeta Pak RN [facility] Work Phone: Comment on above: Pattern: Regular 11-14-2014 15:37-0400 Pulse Oximetry 97 % Juan Chan [facility] Work Phone: Comment on above: Room air 11-14-2014 15:37-0400 Respiratory Rate 18 /min Violeta Pak RN [facility] Work Phone: Comment on above: Pattern: Unlabored 11-14-2014 15:37-0400 SaO2% (BldA) [Mass fraction] 97 % Violeta Pak RN [facility] Work Phone: Comment on above: Room air 11-14-2014 15:37-0400 Weight 70.99 kg Juan Chan [facility] Work Phone: 08-25-2014 07:23-0500 Body Temperature 98.8 [degF] Violeta Pak RN [facility] Work Phone: Comment on above: Method: Oral 08-25-2014 07:23-0500 Body weight 70.36 kg Violeta Pak RN [facility] Work Phone: 08-25-2014 07:23-0500 BP Diastolic 68 mm[Hg] Violeta Pak RN [facility] Work Phone: Comment on above: Patient Position: Si tting; Cuff Location: Left Arm; Cuff Size: Standard 08-25-2014 07:23-0500 BP Systolic 96 mm[Hg] Violeta Pak RN [facility] Work Phone: Comment on above: Patient Position: Si tting; Cuff Location: Left Arm; Cuff Size: Standard 08-25-2014 07:23-0500 Pulse (Heart Rate) 88 /min Violeta Pak RN [facility] Work Phone: Comment on above: Pattern: Regular 08-25-2014 07:23-0500 Pulse Oximetry 98 % Juan Chan [facility] Work Phone: Comment on above: Room air 08-25-2014 07:23-0500 Respiratory Rate 16 /min Violeta Pak RN [facility] Work Phone: Comment on above: Pattern: Unlabored 08-25-2014 07:23-0500 SaO2% (BldA) [Mass fraction] 98 % Violeta Pak RN [facility] Work Phone: Comment on above: Room air 08-25-2014 07:23-0500 Weight 70.36 kg Juan Chan [facility] Work Phone: 07-14-2014 10:14-0500 Body weight 70.36 kg Violeta Pak RN [facility] Work Phone: 07-14-2014 10:14-0500 BP Diastolic 84 mm[Hg] Violeta Pak RN [facility] Work Phone: Comment on above: Patient Position: Si tting; Cuff Location: Left Arm; Cuff Size: Standard 07-14-2014 10:14-0500 BP Systolic 124 mm[Hg] Violeta Pak RN [facility] Work Phone: Comment on above: Patient Position: Si tting; Cuff Location: Left Arm; Cuff Size: Standard 07-14-2014 10:14-0500 Pulse (Heart Rate) 110 /min Violeta Pak RN [facility] Work Phone: Comment on above: Pattern: Regular 07-14-2014 10:14-0500 Pulse Oximetry 98 % Juan Chan [facility] Work Phone: Comment on above: Room air 07-14-2014 10:14-0500 Respiratory Rate 16 /min Violeta Pak RN [facility] Work Phone: Comment on above: Pattern: Unlabored 07-14-2014 10:14-0500 SaO2% (BldA) [Mass fraction] 98 % Violeta Pak RN [facility] Work Phone: Comment on above: Room air 07-14-2014 10:14-0500 Weight 70.36 kg Juan Chan [facility] Work Phone: 07-04-2014 16:52-0500 Body weight 70.36 kg Violeta Pak RN [facility] Work Phone: 07-04-2014 16:52-0500 BP Diastolic 80 mm[Hg] Violeta Pak RN [facility] Work Phone: Comment on above: Patient Position: Si tting; Cuff Location: Left Arm; Cuff Size: Standard 07-04-2014 16:52-0500 BP Systolic 122 mm[Hg] Violeta Pak RN [facility] Work Phone: Comment on above: Patient Position: Si tting; Cuff Location: Left Arm; Cuff Size: Standard 07-04-2014 16:52-0500 Pulse (Heart Rate) 92 /min Violeta Pak RN [facility] Work Phone: Comment on above: Pattern: Regular 07-04-2014 16:52-0500 Pulse Oximetry 98 % Juan Chan [facility] Work Phone: Comment on above: Room air 07-04-2014 16:52-0500 Respiratory Rate 18 /min Violeta Pak RN [facility] Work Phone: Comment on above: Pattern: Unlabored 07-04-2014 16:52-0500 SaO2% (BldA) [Mass fraction] 98 % Violeta Pak RN [facility] Work Phone: Comment on above: Room air 07-04-2014 16:52-0500 Weight 70.36 kg Juan Chan [facility] Work Phone: 09-29-2013 11:49-0400 Body Temperature 97.9 [degF] Tiffany Harp [facility] Work Phone: Comment on above: Method: Oral 09-29-2013 11:49-0400 Body weight 74.39 kg Tiffany Harp CMA [facility] Work Phone: 09-29-2013 11:49-0400 BP Diastolic 82 mm[Hg] Tiffany Harp [facility] Work Phone: Comment on above: Patient Position: Si tting; Cuff Location: Left Arm; Cuff Size: Standard 09-29-2013 11:49-0400 BP Systolic 126 mm[Hg] Tiffany Harp [facility] Work Phone: Comment on above: Patient Position: Si tting; Cuff Location: Left Arm; Cuff Size: Standard 09-29-2013 11:49-0400 Pulse (Heart Rate) 100 /min Tiffany Harp [facility] Work Phone: Comment on above: Pattern: Regular 09-29-2013 11:49-0400 Pulse Oximetry 99 % Juan Chan [facility] Work Phone: Comment on above: Room air 09-29-2013 11:49-0400 Respiratory Rate 18 /min Tiffany Harp [facility] Work Phone: Comment on above: Pattern: Unlabored 09-29-2013 11:49-0400 SaO2% (BldA) [Mass fraction] 99 % Tiffany Harp [facility] Work Phone: Comment on above: Room air 09-29-2013 11:49-0400 Weight 74.39 kg Juan Chan [facility] Work Phone: NEGATED: Highlighted [id number] 10:17-0500 BMI (Body Mass Index) 24.6 kg/m2 Bella Gross AT [facility] Work Phone: NEGATED: Highlighted [id number] 10:17-0500 BP Diastolic 76 mm[Hg] Bella Gross AT [facility] Work Phone: NEGATED: Highlighted [id number] 10:17-0500 BP Systolic 119 mm[Hg] Bella Renato AT [facility] Work Phone: NEGATED: Highlighted [id number] 10:17-0500 Height 175.26 cm Bella Renato AT [facility] Work Phone: NEGATED: Highlighted [id number] 10:17-0500 Height 175 cm Bella Renato AT [facility] Work Phone: NEGATED: Highlighted [id number] 10:17-0500 Pulse (Heart Rate) 76 /min Bella Renato AT [facility] Work Phone: NEGATED: Highlighted [id number] 10:17-0500 Weight 75.3 kg Bellashanna Gross AT [facility] Work Phone: NEGATED: Highlighted [id number] 10:17-0500 Weight 75 kg Bella Renato AT [facility] Work Phone: Encounters Encounter Date Encounter Type Care Provider Facility Start: 02-14-2025 ambulatory Jewel Gallegos Facilit y:[facility] Start: 02-08-2025 ambulatory Juan Lujan y:[facility] Start: 01-20-2025 End: 01-20-2025 Patient encounter procedure Rocio NELSON -[facility] Work Phone: Start: 01-20-2025 End: 01-20-[address] Juan Chan DO Work Phone: -[facility] Start: 01-11-2025 End: 01-11-[address] Juan Chan DO Work Phone: [facility] Start: 01-11-2025 End: 01-11-[address] Juan Chan DO -MRI - [facility] Work Phone: Start: 01-11-2025 End: 01-11-2025 ambulatory Juan Chan Facility:[facility] Start: 01-03-2025 ambulatory Juan Chan Facilit y:[facility] Start: 12-28-2024 Non-patient / Non-visit Dr. Ayaka olsen MD -[facility] Work Phone: Start: 12-16-2024 Non-patient / Non-visit Dr. Fátima Breaux MD -[facility] Start: 12-16-2024 End: 12-16-[address] Juan Chan DO Work Phone: [facility] Work Phone: Start: 12-16-2024 End: 12-16-[address] Juan Chan DO -[facility] Work Phone: Start: 12-16-2024 End: 12-16-2024 ambulatory Juan Chan Facility:[facility] Start: 11-25-2024 End: 11-25-2024 ambulatory [facility] Start: 11-25-2024 End: 11-25-2024 Office outpatient visit 15 minutes Rodríguez Vick MD Work Phone: [facility] Comment on above: Malignant neoplasm o f right kidney (HCC) (Primary Dx) Start: 11-18-2024 Non-patient / Non-visit Dr. Valdemar salcedo DO -[facility] Start: 11-18-2024 End: 11-18-[address] Juan Chan DO Work Phone: [facility] Work Phone: Start: 11-18-2024 End: 11-18-[address] Juan Chan DO -Pulmonary Services/Neurology Work Phone: Start: 11-18-2024 End: 11-18-2024 ambulatory Juan Chan Facility:[facility] Start: 11-15-2024 End: 11-15-2024 Admission to same day surgery center Dr. Jewel Gallegos MD -[facility] Start: 11-15-2024 End: 11-15-[address] Juan Chan DO Work Phone: [facility] Work Phone: Start: 11-02-2024 End: 11-02-[address] Juan Chan DO Work Phone: [facility] Work Phone: Start: 11-02-2024 End: 11-02-2024 Patient encounter procedure Ashli Sloan -Radiology, [facility] Work Phone: Start: 11-02-2024 End: 11-02-2024 ambulatory Juan Chan Facility:[facility] Start: 10-18-2024 End: 10-18-2024 Subsequent hospital visit by physician Rodríguez Vick MD Work Phone: [facility] Comment on above: Malignant neoplasm o f right kidney (HCC) Start: 10-18-2024 End: 10-18[facility] Start: 10-13-2024 ambulatory LIZBET REYES II Fa cility:[facility] Start: 10-13-2024 End: 10-13-2024 Patient encounter procedure Lizbet Reyes OD Work Phone: Optometry Comment on above: Blurred vision, left eye (Primary Dx) Start: 07-29-2024 End: 07-30-2024 Telephone encounter Rodríguez Vick MD Work Phone: [facility] Wendy Gann Comment on above: Other ([employer]) Start: 07-29-2024 End: 07-29-2024 ambulatory [facility] Start: 07-29-2024 End: 07-29-2024 Postop follow up visit related to original px Rodríguez Vick MD Work Phone: [facility] Comment on above: Malignant neoplasm o f right kidney (HCC) (Primary Dx) Start: 07-20-2024 End: 07-20-2024 Patient encounter procedure Monik NELSON -[facility] Work Phone: Start: 07-20-2024 End: 07-20-2024 ambulatory Juan Chan Facility:[facility] Start: 07-14-2024 End: 07-15-2024 Evaluation and management of inpatient Rodríguez Vick MD Work Phone: [facility] Comment on above: Renal mass (Primary Dx); Cyst of kidney, acquired; Right renal mass Start: 07-07-2024 End: 07-07-2024 ambulatory [facility] Start: 07-07-2024 End: 07-07-2024 Encounter for other preprocedural examination [facility] Start: 07-06-2024 End: 07-06-[address] JUAN CHAN DO Facility:[facility] Start: 07-06-2024 End: 07-06-2024 Patient encounter procedure HAWA SINGLETARY MD [facility] Start: 06-09-2024 End: 06-09-2024 Telephone encounter Rodríguez Vick MD Work Phone: [facility] [employer] Start: 06-08-2024 End: 06-08-[address] JUAN CHAN DO Facility:[facility] Start: 06-08-2024 End: 06-08-2024 Patient encounter procedure HAWA SINGLETARY MD [facility] Start: 05-19-2024 End: 05-19-2024 Telephone encounter Rodríguez Vick MD Work Phone: [facility] [employer] Comment on above: Surgery Scheduling Start: 05-18-2024 End: 05-18-2024 Office outpatient visit 40 minutes Rod[facility] Comment on above: Complex renal cyst ( Primary Dx) Start: 05-18-2024 End: 05-18-2024 ambulatory HAWA SINGLETARY MD Facility:[facility] Start: 05-18-2024 End: 05-18-2024 Patient encounter procedure HAWA SINGLETARY MD [facility] Start: 05-11-2024 End: 05-11-2024 Telephone encounter Nika Farias APRN - [employer] Work Phone: [facility] Start: 05-10-2024 End: 05-10-2024 Subsequent hospital visit by physician Rodríguez Vick MD Work Phone: [facility] Comment on above: Renal mass, right Start: 05-10-2024 End: 05-10-2024 ambulatory [facility] Start: 04-29-2024 End: 04-29-2024 Office outpatient new 45 minutes Rodríguez Vick MD Work Phone: [facility] Comment on above: Renal mass, right (P rimary Dx) Start: 04-29-2024 End: 04-29-2024 ambulatory [facility] Start: 04-20-2024 End: 04-20-2024 ambulatory JI ALVAREZ Facility:[facility] Start: 04-20-2024 End: 04-20-2024 Patient encounter procedure JI ALVAREZ [facility] Start: 04-19-2024 End: 04-19-2024 ambulatory Juan Chan Facility:[facility] Start: 04-14-2024 End: 04-14-2024 Telephone encounter Berto Ibarra MD Work Phone: [facility] Start: 04-06-2024 End: 04-06-2024 ambulatory RACHEL KUMAR MD Facility:A Start: 04-06-2024 End: 04-06-2024 SAME DAY STAY MYRNA BROTHERS DO [facility] Start: 04-05-2024 End: 04-05-[address] [facility] MYRNA BROTHERS DO [facility] Start: 04-05-2024 End: 04-05-[address] JUAN CHAN DO Facility:A Start: 03-26-2024 End: 03-27-2024 Emergency department patient visit SIMI SAINZ [facility] Start: 03-26-2024 End: 03-26-2024 Emergency department patient visit Ed Physician Provider Facility:[facility] Start: 03-25-2024 End: 03-26-2024 Emergency department patient visit Scott [facility] Facility:[facility] Start: 03-20-2024 End: 03-22-2024 Evaluation and management of inpatient LISSETT GREENWOOD MD [facility] Start: 02-27-2024 End: 02-28-2024 Giancarlo Conrad MD Work Phone: [facility] Start: 02-25-2024 End: 02-25-2024 ambulatory LIZBET REYES II Facility:[facility] Start: 02-25-2024 End: 02-25-2024 Patient encounter procedure Lizbet Reyes OD Work Phone: Optometry Comment on above: Hyperopia, bilateral (Primary Dx); Regular astigmatism, bilateral; Presbyopia; Nuclear sclerotic cataract of both eyes; Hx of LASIK Start: 01-08-2023 End: 01-08-2023 Juan Chan DO Work Phone: [facility] Start: 01-07-2023 End: 01-07-[address] Juan Chan Work Phone: [facility] Work Phone: Start: 01-07-2023 End: 01-07-[address] Juan Chan Work Phone: [facility], [facility] Work Phone: Start: 12-03-2022 End: 12-03-[address] Juan Chan Work Phone: [facility] Work Phone: Start: 11-14-2022 End: 11-20-2022 Office outpatient visit 25 minutes Juan Jodie DO Work Phone: [facility] Start: 11-06-2022 End: 11-06-2022 Patient encounter procedure Lizbet Reyes OD Work Phone: Optometry Comment on above: Acute atopic conjunc tivitis of left eye (Primary Dx) Start: 11-04-2022 End: 11-04-2022 Patient encounter procedure Allyn Reyes OD Work Phone: Optometry Comment on above: Redness of eye, left (Primary Dx) Start: 08-08-2022 ambulatory Juan Jodie DO [facility] Start: 08-08-2022 End: 08-08-2022 Office outpatient visit 25 minutes Juan Jodie DO Work Phone: [facility] Start: 05-02-2022 End: 05-02-2022 Office outpatient visit 25 minutes Juan Jodie DO Work Phone: [facility] Start: 04-12-2022 Review Juan Fearo n DO Work Phone: [facility] Start: 04-11-2022 End: 04-11-2022 Office outpatient visit 15 minutes Juan Jodie DO Work Phone: [facility] Start: 02-12-2022 End: 02-12-2022 Patient encounter procedure [facility] Start: 01-25-2022 End: 01-25-2022 Office outpatient visit 25 minutes Juan Jodie DO Work Phone: [facility] Start: 01-25-2022 Review Juan Fearo n DO Work Phone: [facility] Start: 11-27-2021 End: 11-28-2021 Office outpatient visit 5 minutes Juan Jodie DO Work Phone: [facility] Start: 10-30-2021 End: 10-30-2021 Office outpatient visit 5 minutes Juan Jodie DO Work Phone: [facility] Start: 10-18-2021 End: 10-18-2021 Patient encounter procedure Lizbet Reyes OD Work Phone: Optometry Comment on above: Acute atopic conjunc tivitis of right eye (Primary Dx) Start: 10-05-2021 End: 10-05-2021 Office outpatient visit 15 minutes Juan Jodie DO Work Phone: [facility] Start: 10-02-2021 End: 10-03-2021 Office outpatient visit 5 minutes Juan Jodie DO Work Phone: [facility] Start: 10-02-2021 End: 10-02-2021 Patient encounter procedure Lizbet Reyes OD Work Phone: Optometry Comment on above: Viral keratitis (Neeta arlyn Dx) Start: 09-25-2021 End: 09-25-2021 Patient encounter procedure Lizbet Reyes OD Work Phone: Optometry Comment on above: Viral keratitis (Neeta arlyn Dx) Start: 09-11-2021 End: 09-12-2021 Office outpatient visit 5 minutes Juan Jodie DO Work Phone: [facility] Start: 08-14-2021 End: 08-14-2021 Office outpatient visit 5 minutes Juan Jodie DO Work Phone: [facility] Start: 06-26-2021 End: 07-09-2021 Office outpatient visit 25 minutes Juan Jodie DO Work Phone: [facility] Start: 06-26-2021 Review Juan Fearo n DO Work Phone: [facility] Start: 06-19-2021 End: 06-20-2021 Office outpatient visit 5 minutes Juan Jodie DO Work Phone: [facility] Start: 06-12-2021 End: 06-13-2021 Office outpatient visit 5 minutes Juan Jodie DO Work Phone: [facility] Start: 06-07-2021 End: 06-07-2021 Office outpatient visit 15 minutes Juan Jodie DO Work Phone: [facility] Start: 06-06-2021 End: 06-06-2021 Office outpatient visit 5 minutes Juan Jodie DO Work Phone: [facility] Start: 06-05-2021 End: 06-06-2021 Office outpatient visit 5 minutes Juan Jodie DO Work Phone: [facility] Start: 06-01-2021 Review Juan Fearo n DO Work Phone: [facility] Start: 06-01-2021 End: 06-01-2021 Office outpatient visit 25 minutes Juan Jodie DO Work Phone: [facility] Start: 01-26-2021 End: 01-26-2021 Office outpatient visit 25 minutes Juan Jodie DO Work Phone: [facility] Start: 09-22-2020 End: 09-22-2020 Office outpatient visit 25 minutes Juan Jodie [facility] Start: 09-08-2020 End: 09-08-2020 Phone Encounter Juan Jodie [facility] Start: 09-08-2020 End: 09-08-2020 Juan Jodie DO Work Phone: [facility] Start: 07-11-2020 End: 07-11-2020 Annotation/Addendum Juan Jodie [facility] Start: 07-11-2020 End: 07-11-2020 Juna Jodie DO Work Phone: [facility] Start: 06-21-2020 End: 06-21-2020 Office outpatient visit 10 minutes Juan Jodie [facility] Start: 06-15-2020 End: 06-15-2020 Office outpatient visit 25 minutes Juannikko Johnsonon [facility] Start: 06-15-2020 Review Juannikko Chan [facility] Start: 03-23-2020 End: 03-23-2020 Office outpatient visit 15 minutes Juan Jodie [facility] Start: 12-08-2019 End: 12-08-2019 Office outpatient visit 25 minutes Juan Jodie [facility] Start: 09-01-2019 End: 09-01-2019 Office outpatient visit 25 minutes Juan Jodie [facility] Start: 06-03-2019 End: 06-03-2019 Phone Encounter Juannikko Johnsonon [facility] Start: 06-03-2019 End: 06-03-2019 Juannikko Chan DO Work Phone: [facility] Start: 04-29-2019 End: 04-29-2019 Office outpatient visit 15 minutes Juan Jodie [facility] Start: 04-29-2019 Review Juanbabak Chan [facility] Start: 12-24-2018 End: 12-24-2018 Office outpatient visit 25 minutes Juan Jodie [facility] Start: 11-02-2018 End: 11-02-2018 Phone Encounter Juan Jodie [facility] Start: 11-02-2018 End: 11-02-2018 Juannikko Chan DO Work Phone: [facility] Start: 05-14-2018 End: 05-14-2018 Office outpatient visit 40 minutes Juan Chan [facility] Start: 05-13-2018 End: 05-13-2018 Patient encounter procedure Darvin Suggs MD Work Phone: [facility] Work Phone: Start: 04-16-2018 End: 04-16-2018 Patient encounter procedure Juan Jodie DO Work Phone: [facility] Start: 04-16-2018 End: 04-16-2018 Periodic preventive med est patient 40-64yrs Juan Sanders [facility] Start: 11-17-2017 End: 11-17-2017 Office outpatient visit 15 minutes Juan Chan [facility] Start: 11-03-2017 End: 11-03-2017 Office outpatient visit 10 minutes Juan Chan [facility] Start: 10-27-2017 End: 10-27-2017 Office outpatient visit 15 minutes Juan Jodie [facility] Start: 09-05-2017 End: 09-06-2017 Ambulatory CLINIC AIMS Facility:[facility] Start: 08-09-2017 End: 08-09-2017 Emergency department patient visit Tamiko Dejesus Facility:[facility] Start: 03-06-2017 End: 03-06-2017 Office outpatient visit 40 minutes Juan Chan [facility] Start: 10-09-2016 End: 10-09-2016 Office outpatient visit 15 minutes Juan Chan [facility] Start: 08-21-2016 End: 08-21-2016 Phone Encounter Juan Sanders [facility] Start: 08-21-2016 End: 08-21-2016 Juan Jodie DO Work Phone: [facility] Start: 07-12-2016 End: 07-12-2016 Office outpatient visit 5 minutes Juan Chan [facility] Start: 07-10-2016 End: 07-10-2016 Office outpatient visit 5 minutes Juan Jodie [facility] Start: 03-28-2016 End: 03-28-2016 Phone Encounter Juan Sanders [facility] Start: 03-28-2016 End: 03-28-2016 Juannikko Chan DO Work Phone: [facility] Start: 03-26-2016 End: 03-26-2016 Patient encounter procedure Juan Chan DO Work Phone: [facility] Start: 03-26-2016 End: 03-26-2016 Periodic preventive med est patient 40-64yrs Juan Chan [facility] Start: 02-15-2016 End: 02-18-2016 Office outpatient visit 5 minutes Juan Jodie [facility] Start: 02-05-2016 End: 02-05-2016 Office outpatient visit 5 minutes Juan Jodie [facility] Start: 06-21-2015 End: 06-21-2015 Patient encounter procedure Juan Johnsonon DO Work Phone: [facility] Start: 06-21-2015 End: 06-21-2015 Periodic preventive med est patient 40-64yrs Juan Chan [facility] Start: 03-01-2015 End: 03-01-2015 Office outpatient visit 5 minutes Juan Jodie [facility] Start: 01-24-2015 End: 01-24-2015 Phone Encounter Juannikko Chan [facility] Start: 01-24-2015 End: 01-24-2015 Juan Chan DO Work Phone: [facility] Start: 12-29-2014 End: 12-29-2014 Patient encounter procedure Juan Chan DO Work Phone: [facility] Start: 12-29-2014 End: 12-29-2014 Periodic preventive med est patient 40-64yrs Juan Jodie [facility] Start: 11-14-2014 End: 11-14-2014 Refill Request Juan Chan [facility] Start: 11-14-2014 End: 11-14-2014 Juannikko Chan DO Work Phone: [facility] Start: 11-14-2014 End: 11-14-2014 Office outpatient visit 15 minutes Juan Chan [facility] Start: 08-25-2014 End: 08-25-2014 Office outpatient visit 15 minutes Juan Chan [facility] Start: 07-14-2014 End: 07-14-2014 Office outpatient visit 10 minutes Juan Chan [facility] Start: 07-04-2014 End: 07-04-2014 Office outpatient visit 25 minutes Juan Chan [facility] Start: 04-15-2014 End: 04-15-2014 Office outpatient visit 5 minutes Juan Chan [facility] Start: 09-29-2013 End: 09-29-2013 Patient encounter Juannikko Johnsonon [facility] Start: 09-29-2013 End: 09-29-2013 Juan Jodie DO Work Phone: [facility] Patient encounter procedure Radha Hanson [facility]; [facility] Work Phone: Patient encounter procedure Toyin Woods [facility]; [facility] Work Phone: Patient encounter procedure Ruby Gravius [facility] Work Phone: Patient encounter procedure Ruby Gravius [facility]; [facility] Work Phone: Patient encounter procedure Ruby Wild [facility] Work Phone: Patient encounter procedure Chadwick Parker [facility] Work Phone: Patient encounter procedure Chadwick Parker [facility]; [facility] Work Phone: Patient encounter procedure Chadwick Parker [facility]; [facility] Work Phone: Patient encounter procedure Hannah Andersen [place] [facility]; [facility] Work Phone: Procedures Date Procedure Procedure Detail Performing Clinician Start: 01-11-2025 MRI of thoracic spine Dr. Juan mitchell DO Work Phone: Start: 12-16-[address] Juan Chan DO Work Phone: Start: 12-16-2024 Computed tomography of abdomen and pelvis with contrast Dr. Juan Chan DO Work Phone: Start: 12-16-2024 CT angiography of chest with contrast Dr. Juan Chan DO Work Phone: Start: 11-15-2024 Local anesthetic sacral epidural block Dr. Juan Chan DO Work Phone: Start: 11-15-2024 Fluoroscopy guided injection of cervical spinal nerve root Dr. Juan Chan DO Work Phone: Start: 11-15-2024 Injection using fluoroscopic guidance Dr. Juan Chan DO Work Phone: Start: 11-02-2024 Complete x-ray series of lumbosacral spine including bending views Dr. Juan Chan DO Work Phone: Start: 10-18-2024 Ct abdomen w/contrast material Rodríguez Vick MD Work Phone: Start: 10-13-2024 End: 10-13-2024 Visual field xm uni/bi w/interp extended exam Lizbet Reyes OD Work Phone: Start: 07-15-2024 Creatinine other source Bud Baez MD Work Phone: Start: 07-15-2024 Basic metabolic panel calcium total Bud Baez MD Work Phone: Start: 07-14-2024 Level v surg pathology gross&microscopic exam Rodríguez Vick MD Work Phone: Start: 07-14-2024 End: 07-14-2024 Laparoscopy surg partial nephrectomy Rodríguez Vick MD Work Phone: Start: 07-14-2024 Blood count complete automated [facility] TRAINING AND DEVELOPMENT SPECIALIST - PARCEL POST OFFICER Work Phone: Start: 07-07-2024 Antibody screen RODRÍGUEZ VICK Comment on above: Performed By: #### [id number] ####Medical Di francia: MARIAN BARLOW ([id number])[facility] BLOOD [facility] ([address] Start: 05-10-2024 Mri abdomen w/o & w/contrast material Rodríguez Vick MD Work Phone: Start: 03-27-2024 Urinalysis SIMI AYALA Comment on above: Result Comment: URINALYSIS Performed By: #### [id number] #### [facility],[address] [place] [address] Start: 01-07-[address] Juan Chan Work Phone: Start: 01-07-2023 End: 01-07-2023 Procedure Note: See Note; NOTES: [facility] Imaging Services [address] [place] [address] Lung Screening MR#: [id number] Acct: [id number] Name: FOSTERMARGOTErendira JOHNSON Rep #: [id number] : 1965 F 57 From: Prasanna arguelles MD PCP: Dr. Juan Chan, DO Status: REG CLI Study: Low Dose CT Lung Screening Date of Exam: 01/07 Exam# [id number] Ordering Dr: Juan Chan DO STUDY: LOW DOSE CT LUNG CANCER SCREENING REASON FOR EXAM: Female, 57 years old. SMOKER. 1ppd x 40 years RADIATION DOSAGE (If Supplied By Facility): CTDIvol = ( 2.01 ) mGy, DLP = ( 69.97 ) mGycm TECHNIQUE: No contrast was administered. Low dose technique was utilized (average mAS-38 and kVp 120). 1.25 mm axial source images with a slice interval of 1.25-mm were reconstructed in lung windows. 2.5 mm axial source images with a slice interval of 2.5-mm were reconstructed in lung windows. 5.0 mm axial source images with a slice interval of 5.0-mm were reconstructed in soft tissue windows. COMPARISON: Comparison is made with prior study dated June 19, 2021. NODULES: No suspicious nodules are seen. Emphysema: Hyperinflation. Mild degree of emphysematous changes with scarring at the lung apices. Stable linear scarring is seen in the right lung base laterally. This extends to the pleural surface. Endobronchial lesion: None Aorta: Unremarkable. CORONARY ARTERIES: Coronary artery calcification is not seen. Heart: Unremarkable Pulmonary artery: Unremarkable Mediastinal nodes: Small mediastinal nodes. Other chest and abdominal findings: CT/Low Dose CT Lung Screening IMPRESSION: Lung-RADS category 2 - Continue annual screening with LDCT in 12 months. IMPORTANT NOTES FOR USE: ACR Lung-RADS Version 1.1 Assessment Categories Release Date: 2018 Category: Coded 0-4 bases on nodule(s) with highest degree of suspicion. Negative screen is defined as categories 1 and 2; a positive screen is defined as categories 3 and 4. Category 3 and 4A nodules that are unchanged on interval CT should be coded as category 2, and individuals returned to screening in 12 months. Category 4X: Category 3 or 4 nodules with additional imaging findings that increase the suspicion of lung cancer, such as spiculation, GGN that doubles in size in 1 year, enlarged lymph notes, etc. Category Modifiers: S (significant finding unrelated to lung cancer) Electronically Signed: Prasanna Espinoza MD at 15:01 EDT Reading Location ID and State: [facility] / [place] , Service support , CC: Dr. Juan Chan DO Jet Dyeing Machine Operator: Signed Juan Chan DO Work Phone: Start: 12-03-2022 End: 12-03-2022 Procedure Note: See Note; NOTES: [facility] [address] [place] [address] [address] [place] [address] OFFICE VISIT Date of Service: 12/03/22 MR#: [id number] Acct: [id number] Name: MARGOT HUTCHISON Rep #: [id number] : 1965 Provider: Dr. Aydin minor MD Age/Sex: 57/F Location: [facility] Status: Signed Intake Vital Signs 08/20/21 10:51 Height 5 ft 9 in Intake Visit Reasons: LEFT SHOULDER Is patient in pain?: No Allergies metaxalone Allergy (Verified 12/03/22 10:16) Anaphylaxis amoxicillin [From Augmentin] Adverse Reaction (Verified 12/03/22 10:16) Nausea clavulanic acid [From Augmentin] Adverse Reaction (Verified 12/03/22 10:16) Nausea ANTI FUNGALS Allergy (Uncoded 12/03/22 10:16) Rash Medications duloxetine 60 mg capsule,delayed release 60 mg PO DAILY 03/15/16 [History Confirmed 12/03/22] amitriptyline 50 mg tablet 100 mg PO QHS 09/10/17 [History Confirmed 12/03/22] clonazepam 0.5 mg tablet 0.5 mg PO DAILY 02/22/19 [History Confirmed 12/03/22] trazodone 100 mg tablet 450 mg PO QHS 90 days #90 tabs 02/22/19 [History Confirmed 12/03/22] cariprazine 1.5 mg capsule (Vraylar) 1.5 mg PO DAILY DEPRESSION 01/21/20 [History Confirmed 12/03/22] primidone 50 mg tablet 150 mg PO TID 01/21/20 [History Confirmed 12/03/22] topiramate 50 mg tablet 25 mg PO BID 01/21/20 [History Confirmed 12/03/22] cholecalciferol (vitamin D3) 25 mcg (1,000 unit) capsule 25 mcg PO DAILY 12/03/22 [History Confirmed 12/03/22] mecobalamin (vitamin B12) 1,000 mcg lozenges 1,000 mcg PO DAILY 12/03/22 [History Confirmed 12/03/22] PFS Medical History (Updated 12/03/22 @ 10:42 by Aydin Blackmon MD) Anxiety Anxiety Arthritis Back pain Cardiology follow-up encounter Chest pain Chronic low back pain Depression Diabetes Heartburn High cholesterol History of echocardiogram History of stress test HLD (hyperlipidemia) Hx of tilt table evaluation Impingement of left shoulder Injury of head and neck Left shoulder pain Perirectal abscess Pure hypercholesterolemia Shortness of breath on exertion Smoker Syncope and collapse Tremor Wears contact lenses Surgical History cervical fusion ( 06/2010) H/O laminectomy H/O: hysterectomy ( 1979) History of carpal tunnel surgery History of surgical removal of ganglion cyst Status post simin-rectal abscess repair, follow-up exam Family History Mother Anxiety and depression Grandfather CVA (cerebral vascular accident) Hypertension Grandmother Diabetes Social History Smoking Status: Current every day smoker tobacco type: cigarettes Electronic Cigarette Use: with nicotine alcohol intake: current substance use type: does not use caffeine: Yes Type: tea Number of servings: 2 what type of physical activity do you participate in: other details: riding horses seatbelt use: sometimes do you feel safe at home: Yes HPI LEFT SHOULDER Details: Parts of this documentation were recorded by a scribe, this documentation accurately reflects the service provided and the decisions made by me, Dr. Aydin Blackmon MD 12/03/22 0710. MARGOT HUTCHISON is a 57 year old F here today for L shoulder pain ... 6 months atraumatic shoulder pain, 10+ / pain, lateral side and going down the arm. RHD. 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 no surgeries or injections. [place] - percocet every day for the back, no NSAIDS. Ortho Exam General General: Yes no acute distress Neurologic: Yes alert and Yes oriented x3 Psychologic: Yes reasonable and appropriate Left Shoulder Skin/Wound: Yes CDI, No ecchymosis, No erythema and No swelling Testing: Yes Hawkin's, Yes Neer's, Yes Speed's, Yes TTP Biceps, No TTP AC Joint, No Drop Arm, Yes Yergason's, Yes PROM-External Rotation at side 0-60, No Sulcus Sign, No translation, Yes empty can, No [place], No cross arm, No lift off, No scapular winging and Yes belly press normal SHOULDER: Active and passive forward elevation 150 degrees internal rotation to posterior beltline. Strength in forward elevation and external rotation both 4+ Supplemental Info [facility] Imaging Services [address] [place] [address] Shoulder min 2 Views MR#:??? [id number] Acct: [id number] Name:??? MARGOT HUTCHISON Rep #: [id number] :? 1965 F 57 ? From:? Robert Carrasco MD PCP: Dr. Juan Chan, DO ??? Status: REG CLI Study: Shoulder min 2 Views ??? Date of Exam: 02/12/22 Exam# [id number] ??? Ordering Dr:??? Margot London NP PRODUCTION SUPPLY EQUIPMENT TENDER-C INDICATION: PAIN EXAMINATION/TECHNIQUE: X-RAY - LEFT XR Shoulder Min 2 Views 4 VIEWS COMPARISON: None. FINDINGS: SOFT TISSUES: No soft tissue swelling or gas.??? No radiopaque foreign body. BONES/JOINTS: No acute fracture or subluxation.. Normal alignment. Preservation of the joint space.. Degenerative bone changes are seen.??? No sclerotic or destructive changes observed. RAD/Shoulder min 2 Views IMPRESSION: Mild degenerative changes, no evidence of acute osseous pathology is seen. ??? Electronically Signed: Robert Carrasco MD at 9:33 EDT Reading Location ID and State: [address] [place] [address] Tel , Service support??? , Coding Level of Care Code Jitendra Eugenio Diagnoses Left shoulder pain M25.512 Impingement of left shoulder M25.812 Comment 18059 and inject major Assessment and Plan Assessment and Plan (1) Left shoulder pain: Status: Acute Plan: 57 year old F here today for L shoulder pain ... consistent with rotator cuff tendinitis/impingement syndrome. Can try rest ice anti-inflammatories activity modifications cortisone injections. Declined physical therapy referral. Patient wished to go ahead with cortisone injection follow-up in 6 weeks time or as needed. Overall I have a low suspicion of a rotator cuff tear could also have biceps tendinitis or pain from the biceps. Certainly if the pain returns or is no better or worse over time I have asked the patient to follow-up in 6 weeks time to order an MRI. Pros and cons risks and benefits of left shoulder subacromial steroid injection were discussed. Patient wished to proceed. Risks include but not limited to infection, pain, stiffness, damage to other structures, neurovascular injury, wear further tear of the tendon and other structures such as the skin, bleeding, allergic reaction, acute flare reaction and other risks. Obtained informed consent for injection. Posterior lateral aspect of the shoulder was prepped with chlorhexidine solution allowed to thoroughly dry over 3 minutes. Used Gebauer spray per bottle instructions. Using sterile technique, injected the left subacromial joint with a 4cc 0.25% bupivacaine and 2cc 40 mg/mL kenalog. Bandage placed. The patient tolerated the injection well without any noted complication. Red flag symptoms were discussed such as redness, swelling, discharge, drainage, pain worsens or if they have any concerns to present to the ED or to call the clinic immediately. (2) Impingement of left shoulder: Status: Acute 12/03/22 1044 <Electronically signed by Aydin Blackmon MD> Date Aydin Blackmon MD Cosigner Signature: Date (if applicable) CC: DO Juan Garcia DO Work Phone: Start: 04-11-2022 End: 04-11-2022 Chest PA and Lateral Procedure Note: See Note; NOTES: [facility] Imaging Services [address] [place] [address] Chest PA and Lateral MR#: [id number] Acct: [id number] Name: MARGOT HUTCHISON Rep #: [id number] : 1965 F 57 From: Randy Rothman MD PCP: Dr. Juan Chan DO Status: REG CLI Study: Chest PA and Lateral Date of Exam: 04/11/22 Exam# [id number] Ordering Dr: Juan Chan DO STUDY: X-RAY CHEST REASON FOR EXAM: Female, 57 years old. COUGH TECHNIQUE: PA or AP and lateral COMPARISON: None. FINDINGS: The lungs are clear and expanded. Mild biapical pleural thickening. Normal size heart. Normal mediastinum and laurie. Normal visualized pulmonary arteries. Normal visualized aortic arch and descending thoracic aorta. Normal visualized thoracic spine. Normal visualized ribs, clavicles, and shoulders. There is no demonstrated abnormality of the visualized soft tissue structures of the upper abdomen. RAD/Chest PA and Lateral IMPRESSION: Mild biapical pleural thickening. Electronically Signed: Randy Rothman MD, JADE at 10:39 EDT , CC: Dr. Juan Chan DO Jet Dyeing Machine Operator: Signed Juan Chan DO Work Phone: Start: 02-12-2022 Plain X-ray of shoulder Start: 02-12-2022 End: 02-12-2022 Shoulder min 2 Views Procedure Note: See Note; NOTES: [facility] Imaging Services [address] [place] [address] Shoulder min 2 Views MR#: [id number] Acct: [id number] Name: MARGOT HUTCHISON Rep #: [id number] : 1965 F 57 From: Robert Carrasco MD PCP: Dr. Juan Chan DO Status: REG CLI Study: Shoulder min 2 Views Date of Exam: 02/12/22 Exam# [id number] Ordering Dr: Margot London NP [employer]ODUCTION [employer] EQUIPMENT TENDER-C INDICATION: PAIN EXAMINATION/TECHNIQUE: X-RAY - LEFT XR Shoulder Min 2 Views 4 VIEWS COMPARISON: None. FINDINGS: SOFT TISSUES: No soft tissue swelling or gas. No radiopaque foreign body. BONES/JOINTS: No acute fracture or subluxation.. Normal alignment. Preservation of the joint space.. Degenerative bone changes are seen. No sclerotic or destructive changes observed. RAD/Shoulder min 2 Views IMPRESSION: Mild degenerative changes, no evidence of acute osseous pathology is seen. Electronically Signed: Robert Carrasco MD at 9:33 EDT Reading Location ID and State: [address] [place] [address] Tel , Service support , CC: PRODUCTION SUPPLY EQUIPMENT TENDER-Bing London; Dr. Juan Chan DO Jet Dyeing Machine Operator: Signed Juan Chan DO Work Phone: Start: 08-20-2021 End: 08-20-2021 Operative Report Comments: See Note; NOTES: [facility] Medical Records Department [address] [place] [address] Operative Report 08/20/21 1517 MR#: [id number] Acct: [id number] Name: MARGOT HUTCHISON Rep #: [id number] : 1965 56 From: Jewel Gallegos MD PCP: Dr. Juan Chan, DO Status:[facility] Location: [facility] Report of Operation Date of Procedure: 08/20/21 Pre-Operative Diagnosis: Lumbosacral radiculopathy, lumbosacral degenerative disc disease, lumbosacral spinal stenosis Post-Operative Diagnosis: Lumbosacral radiculopathy, lumbosacral degenerative disc disease, lumbosacral spinal stenosis Surgery/Procedure Performed:: Caudal epidural steroid injection under fluoroscopic guidance Type of Anesthesia: MAC Estimated Blood Loss (mL): Minimal Description of Procedure: DESCRIPTION OF PROCEDURE: History and physical of today was reviewed. Risks and benefits of the procedure were explained. The patient understood and agreed to proceed. Informed consent was obtained. IV inserted per routine protocol. The patient was taken to the operating room and placed in the prone position with a pillow positioned underneath the abdomen. The lower back and tailbone area was prepped and draped in a sterile fashion using iodine x3. Under fluoroscopy guidance on a lateral view, the caudal space was identified. The skin and subcutaneous tissue was anesthetized with approximately 3 mL of 1% lidocaine using a 25-gauge regular needle. Under direct visualization with fluoroscopy, using a 22-gauge 3-1/2-inch spinal needle, the needle was advanced via the skin through the sacral hiatus. The tip of the needle was passed through the sacrococcygeal ligament and advanced to approximately S4 area. After negative aspiration of blood or CSF, a total of 3 mL of contrast was injected to confirm correct placement of the needle as well as cephalad spread. The spread was followed to approximately L5 area. After confirmation on AP as well as lateral view and repeated negative aspiration, a total of 15 mL of preservative-free 0.125% Marcaine with 80 mg of Depo-Medrol was injected easily. The needle was then removed intact. The patient experienced no sign or symptoms of intrathecal or intravascular injection. The patient experienced no paresthesia. The procedure was completed without any apparent difficulty or any complications. The patient appeared to tolerate it well. ASSESSMENT AND PLAN: This is a 56-year-old female with lumbosacral radiculopathy, lumbosacral degenerative disc disease, lumbosacral spinal stenosis status post caudal epidural steroid injection, patient will continue her current medications, patient will follow in approximately 2 weeks for reevaluation. Complications None 08/20/21 1518 <Electronically signed by Jewel Gallegos MD> Cosigner Signature (if applicable): CC: Dr. Jewel Gallegos MD; Dr. Juan Chan DO Signed Juan Chan DO Work Phone: Start: 08-20-2021 End: 08-20-2021 Fluor Guidance for Spine Inj Comments: See Note; NOTES: [facility] Imaging Services [address] [place] [address] Fluor Guidance for Spine Inj MR#: [id number] Acct: [id number] Name: MARGOT HUTCHISON Rep #: [id number] : 1965 F 56 From: Prasanna arguelles MD PCP: Dr. Juan Chan DO Status: [facility] Study: Fluor Guidance for Spine Inj Date of Exam: Exam# [id number] Ordering Dr: Jewel Gallegos MD PROCEDURE: Caudal block. DATE OF EXAMINATION: 08/20/2021. INDICATION: Female, 56 years old. Chronic low back pain. FLUOROSCOPY TIME (if supplied): (4 seconds) minutes/seconds. One image was submitted. RAD/Fluor Guidance for Spine Inj IMPRESSION: Intraoperative imaging provided for caudal block. Electronically Signed: Prasanna Espinoza MD at 15:37 EST , CC: Dr. Jewel Gallegos MD; Dr. Juan Chan DO Jet Dyeing Machine Operator: Signed Juan Chan DO Work Phone: Start: 06-19-2021 End: 06-19-[address] Lung Screening Comments: See Note; NOTES: [facility] Imaging Services [address] [place] [address] Lung Screening MR#: [id number] Acct: [id number] Name: MARGOT HUTCHISON Rep #: [id number] : 1965 F 56 From: Prasanna arguelles MD PCP: Dr. Juan Chan, DO Status: REG CLI Study: Low Dose CT Lung Screening Date of Exam: 06/19 Exam# [id number] Ordering Dr: Juan Chan DO STUDY: LOW DOSE CT LUNG CANCER SCREENING REASON FOR EXAM: Female, 56 years old. SMOKER. Patient smokes 1 pack per day for 45 years. RADIATION DOSAGE (If Supplied By Facility): CTDIvol = ( 3.02 ) mGy, DLP = ( 105.33 ) mGycm TECHNIQUE: No contrast was administered. Low dose technique was utilized (average mAS-38 and kVp 120). 1.25 mm axial source images with a slice interval of 1.25-mm were reconstructed in lung windows. 2.5 mm axial source images with a slice interval of 2.5-mm were reconstructed in lung windows. 5.0 mm axial source images with a slice interval of 5.0-mm were reconstructed in soft tissue windows. Nodule measured using lung windows on PACS and/or independent workstation with automated measurement of minimum and maximum diameter. Nodule measurement reported as average diameter rounded to the nearest whole number. Growth is defined as an increase ins size of greater than 1.5 mm. COMPARISON: Comparison is made with prior study dated 05/22/2018. NODULES: No suspicious nodules are seen. Emphysema: Mild degree of emphysematous change with scarring at both lung apices. Increased linear markings at the right lung base. This extends into the pleural surface suggestive of a linear scarring and focal pleural thickening. Endobronchial lesion: None Aorta: Unremarkable Coronary arteries: Unremarkable Heart: Unremarkable Pulmonary artery: Unremarkable Mediastinal nodes: Unremarkable Other chest and abdominal findings: CT/Low Dose CT Lung Screening IMPRESSION: Lung-RADS category 2 - Continue annual screening with LDCT in 12 months. IMPORTANT NOTES FOR USE: ACR Lung-RADS Version 1.1 Assessment Categories Release Date: 2018 Category: Coded 0-4 bases on nodule(s) with highest degree of suspicion. Negative screen is defined as categories 1 and 2; a positive screen is defined as categories 3 and 4. Category 3 and 4A nodules that are unchanged on interval CT should be coded as category 2, and individuals returned to screening in 12 months. Category 4X: Category 3 or 4 nodules with additional imaging findings that increase the suspicion of lung cancer, such as spiculation, GGN that doubles in size in 1 year, enlarged lymph notes, etc. Category Modifiers: S (significant finding unrelated to lung cancer) Electronically Signed: Prasanna Espinoza MD at 12:39 EST , Service support , CC: Dr. Juan Chan DO Jet Dyeing Machine Operator: Signed Juan Chan DO Work Phone: Start: 04-30-2021 End: 04-30-2021 Operative Report Comments: See Note; NOTES: [facility] Medical Records Department [address] [place] [address] Operative Report 04/30/21 1222 MR#: [id number] Acct: [id number] Name: MARGOT HUTCHISON Rep #: [id number] : 1965 56 From: Jewel Gallegos MD PCP: Dr. Juan Chan DO Status:[facility] Location: [place] [address] Report of Operation Date of Procedure: 04/30/21 Pre-Operative Diagnosis: Lumbosacral radiculopathy, lumbosacral degenerative disc disease, lumbosacral spinal stenosis Post-Operative Diagnosis: Lumbosacral radiculopathy, lumbosacral degenerative disc disease, lumbosacral spinal stenosis Surgery/Procedure Performed:: Caudal epidural steroid injection under fluoroscopic guidance Type of Anesthesia: MAC Estimated Blood Loss (mL): Minimal Description of Procedure: DESCRIPTION OF PROCEDURE: History and physical of today was reviewed. Risks and benefits of the procedure were explained. The patient understood and agreed to proceed. Informed consent was obtained. IV inserted per routine protocol. The patient was taken to the operating room and placed in the prone position with a pillow positioned underneath the abdomen. The lower back and tailbone area was prepped and draped in a sterile fashion using iodine x3. Under fluoroscopy guidance on a lateral view, the caudal space was identified. The skin and subcutaneous tissue was anesthetized with approximately 3 mL of 1% lidocaine using a 25-gauge regular needle. Under direct visualization with fluoroscopy, using a 22-gauge 3-1/2-inch spinal needle, the needle was advanced via the skin through the sacral hiatus. The tip of the needle was passed through the sacrococcygeal ligament and advanced to approximately S4 area. After negative aspiration of blood or CSF, a total of 3 mL of contrast was injected to confirm correct placement of the needle as well as cephalad spread. The spread was followed to approximately L5 area. After confirmation on AP as well as lateral view and repeated negative aspiration, a total of 15 mL of preservative-free 0.125% Marcaine with 80 mg of Depo-Medrol was injected easily. The needle was then removed intact. The patient experienced no sign or symptoms of intrathecal or intravascular injection. The patient experienced no paresthesia. The procedure was completed without any apparent difficulty or any complications. The patient appeared to tolerate it well. ASSESSMENT AND PLAN: This is a 56-year-old female with lumbosacral radiculopathy, lumbosacral degenerative disc disease, lumbosacral spinal stenosis status post caudal epidural steroid injection, patient will continue her current medications, patient will follow in approximately 2 weeks for reevaluation. Complications None 04/30/21 1230 <Electronically signed by Jewel Gallegos MD> Cosigner Signature (if applicable): CC: Dr. Jewel Gallegos MD; Dr. Juan Chan, DO Signed Juan Chan DO Work Phone: Start: 04-30-2021 End: 04-30-2021 Fluor Guidance for Spine Inj Comments: See Note; NOTES: [facility] Imaging Services [address] [place] [address] Fluor Guidance for Spine Inj MR#: [id number] Acct: [id number] Name: MARGOT HUTCHISON Rep #: [id number] : 1965 F 56 From: Prasanna arguelles MD PCP: Dr. Juan Chan, DO Status: [facility] Study: Fluor Guidance for Spine Inj Date of Exam: 07/20 Exam# [id number] Ordering Dr: Jewel Gallegos MD PROCEDURE: Caudal block. DATE OF EXAMINATION: 04/30/2021. INDICATION: Female, 56 years old. Chronic low back pain. FLUOROSCOPY TIME (if supplied): (6 seconds) minutes/seconds. One image was obtained. RAD/Fluor Guidance for Spine Inj IMPRESSION: Intraoperative imaging for caudal block. Electronically Signed: Prasanna Espinoza MD at 14:48 EDT , Service support , CC: Dr. Jewel Gallegos MD; Dr. Juan Chan DO Jet Dyeing Machine Operator: Signed Juan Chan DO Work Phone: Start: 04-02-2021 End: 04-02-2021 Operative Report Comments: See Note; NOTES: [facility] Medical Records Department [address] [place] [address] Operative Report 04/02/21 1554 MR#: [id number] Acct: [id number] Name: MARGOT HUTCHISON Rep #: [id number] : 1965 56 From: Jewel Gallegos MD PCP: Dr. Juan Chan DO Status:[facility] Location: [facility] Report of Operation Date of Procedure: 04/02/21 Pre-Operative Diagnosis: Lumbosacral radiculopathy, lumbosacral degenerative disc disease, lumbosacral spinal stenosis Post-Operative Diagnosis: Lumbosacral radiculopathy, lumbosacral degenerative disc disease, lumbosacral spinal stenosis Surgery/Procedure Performed:: Caudal epidural steroid injection under fluoroscopic guidance Type of Anesthesia: MAC Estimated Blood Loss (mL): Minimal Description of Procedure: DESCRIPTION OF PROCEDURE: History and physical of today was reviewed. Risks and benefits of the procedure were explained. The patient understood and agreed to proceed. Informed consent was obtained. IV inserted per routine protocol. The patient was taken to the operating room and placed in the prone position with a pillow positioned underneath the abdomen. The lower back and tailbone area was prepped and draped in a sterile fashion using iodine x3. Under fluoroscopy guidance on a lateral view, the caudal space was identified. The skin and subcutaneous tissue was anesthetized with approximately 3 mL of 1% lidocaine using a 25-gauge regular needle. Under direct visualization with fluoroscopy, using a 22-gauge 3-1/2-inch spinal needle, the needle was advanced via the skin through the sacral hiatus. The tip of the needle was passed through the sacrococcygeal ligament and advanced to approximately S4 area. After negative aspiration of blood or CSF, a total of 3 mL of contrast was injected to confirm correct placement of the needle as well as cephalad spread. The spread was followed to approximately L5 area. After confirmation on AP as well as lateral view and repeated negative aspiration, a total of 15 mL of preservative-free 0.125% Marcaine with 80 mg of Depo-Medrol was injected easily. The needle was then removed intact. The patient experienced no sign or symptoms of intrathecal or intravascular injection. The patient experienced no paresthesia. The procedure was completed without any apparent difficulty or any complications. The patient appeared to tolerate it well. ASSESSMENT AND PLAN: This is a 56-year-old female with lumbosacral radiculopathy, lumbosacral degenerative disc disease, lumbosacral spinal stenosis status post caudal epidural steroid injection, patient will continue her current medications, patient will follow in approximately 2 weeks for reevaluation. Complications None 04/02/21 1554 <Electronically signed by Jewel Gallegos MD> Cosigner Signature (if applicable): CC: Dr. Jewel Gallegos MD; Dr. Juan Chan, DO Signed Juan Chan DO Work Phone: Start: 04-02-2021 End: 04-02-2021 Fluor Guidance for Spine Inj Comments: See Note; NOTES: [facility] Imaging Services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 Left anterior descending artery calcium score of 0 Left circumflex artery calcium score of 0. Right coronary artery. Calcium score 0. Total calcium score 0. Conclusion: The above is indicative of minimal or no significant atherosclerotic plaquing Labs LDL Cholesterol 100 mg/dL (0-130) 04/24/17 HDL Cholesterol 72 mg/dL (40-) 04/24/17 Triglycerides 60 mg/dL (-199) 04/24/17 VLDL Cholesterol 12 mg/dL (5-40) 04/24/17 Diagnostics Electrocardiogram 10/16/17 Cardiac Tilt Table Test 05/27/[address] 05/22/18 01/21/20 0936 <Electronically signed by Moe Gonzales MD> Date Moe Gonzales MD Cosigner Signature: Date (if applicable) CC: DO Juan Garcia Start: 08-18-2019 End: 08-18-2019 Surgery Visit Report Comments: See Note; NOTES: [facility] [address] [place] [address]. [address] [place] [address] OFFICE VISIT Date of Service: 08/18/19 MR#: [id number] Acct: [id number] Name: MARGOT HUTCHISON Rep #: [id number] : 1965 Provider: Que Hernandez MD Age/Sex: 54/F Location: [facility] Status: Signed Intake Intake Visit Reasons: F/U Perirectal Abscess ER 07/31 Chief Complaint: post simin rectal Band Sewer Required: No Is patient in pain?: No Allergies metaxalone Allergy (Verified 08/18/19 09:55) Anaphylaxis amoxicillin [From Augmentin] Adverse Reaction (Verified 08/18/19 09:55) Nausea clavulanic acid [From Augmentin] Adverse Reaction (Verified 08/18/19 09:55) Nausea ANTI FUNGALS Allergy (Uncoded 08/18/19 09:55) Rash Medications Duloxetine Hcl [Cymbalta] 60 mg PO DAILY 03/15/16 [History Confirmed 08/18/19] oxycodone-acetaminophen 5 mg-325 mg tablet 2 tab PO BID 30 Days #60 tab 06/27/17 [History Confirmed 08/18/19] tizanidine 4 mg capsule 4 mg PO TID 20 Days #60 cap 06/27/17 [History Confirmed 08/18/19] Amitriptyline HCl 100 mg PO DAILY 09/10/17 [History Confirmed 08/18/19] clonazepam 0.5 mg tablet 0.5 mg PO DAILY tab 02/22/19 [History Confirmed 08/18/19] primidone 50 mg tablet 150 mg PO BID tab 02/22/19 [History Confirmed 08/18/19] rosuvastatin 10 mg tablet 20 mg PO QDAY tab 02/22/19 [History Confirmed 08/18/19] trazodone 100 mg tablet 450 mg PO QHS 90 Days #90 tab 02/22/19 [History Confirmed 08/18/19] Cariprazine HCl [Vraylar] 1 tab PO DAILY 07/31/19 [History Confirmed 08/18/19] Lidocaine 2% Jelly [Xylocaine 2% Jelly] 5 ml TOPICAL 5X/DAY PRN #30 g 07/31/19 [Rx Confirmed 08/18/19] Omeprazole 20 mg PO DAILY 07/31/19 [History Confirmed 08/18/19] Topiramate 50 mg PO DAILY 07/31/19 [History Confirmed 08/18/19] ciprofloxacin HCl 500 mg tablet 500 mg PO BID #14 tab 08/09/19 [Rx Confirmed 08/18/19] metronidazole 500 mg tablet 500 mg PO Q8H #21 tab 08/09/19 [Rx Confirmed 08/18/19] Subjective Details: Patient reports she is doing much better. She has no internal pain only pain at the incision when she wipes Objective Details: No changes Assessment AND Plan Problems 1. Perirectal abscess K61.1 Plan Patient is doing well at this time. She reports only pain when she wipes. Follow-up as needed. If things get worse at all I would recommend CT scan and exam under anesthesia to check for fistula. Que Hernandez MD Pager: [facility] [address] [place] [address], [address] [place] [address] Office: Coding Level of Care Code Global Post Op Diagnoses Perirectal abscess K61.1 08/18/19 1003 <Electronically signed by Que Hernandez MD> Date Que Hernandez MD Cosigner Signature: Date (if applicable) CC: Juan Lares Start: 08-12-2019 End: 08-12-2019 Surgery Visit Report Comments: See Note; NOTES: [facility] [address] [place] [address] OFFICE VISIT Date of Service: 08/12/19 MR#: [id number] Acct: [id number] Name: FOSTERMARGOT CAITLYN Rep #: [id number] : 1965 Provider: Que Hernandez MD Age/Sex: 54/F Location: [facility] Status: Signed Intake Intake Visit Reasons: F/U Perirectal Abscess ER 07/31 Chief Complaint: post simin rectal Band Sewer Required: No Is patient in pain?: No Allergies metaxalone Allergy (Verified 08/12/19 14:35) Anaphylaxis amoxicillin [From Augmentin] Adverse Reaction (Verified 08/12/19 14:35) Nausea clavulanic acid [From Augmentin] Adverse Reaction (Verified 08/12/19 14:35) Nausea ANTI FUNGALS Allergy (Uncoded 07/31/19 22:13) Rash Medications Duloxetine Hcl [Cymbalta] 60 mg PO DAILY 03/15/16 [History Confirmed 08/12/19] oxycodone-acetaminophen 5 mg-325 mg tablet 2 tab PO BID 30 Days #60 tab 06/27/17 [History Confirmed 08/12/19] tizanidine 4 mg capsule 4 mg PO TID 20 Days #60 cap 06/27/17 [History Confirmed 08/12/19] Amitriptyline HCl 100 mg PO DAILY 09/10/17 [History Confirmed 08/12/19] clonazepam 0.5 mg tablet 0.5 mg PO DAILY tab 02/22/19 [History Confirmed 08/12/19] primidone 50 mg tablet 150 mg PO BID tab 02/22/19 [History Confirmed 08/12/19] rosuvastatin 10 mg tablet 20 mg PO QDAY tab 02/22/19 [History Confirmed 08/12/19] trazodone 100 mg tablet 450 mg PO QHS 90 Days #90 tab 02/22/19 [History Confirmed 08/12/19] Cariprazine HCl [Vraylar] 1 tab PO DAILY 07/31/19 [History Confirmed 08/12/19] Lidocaine 2% Jelly [Xylocaine 2% Jelly] 5 ml TOPICAL 5X/DAY PRN #30 g 07/31/19 [Rx Confirmed 08/12/19] Omeprazole 20 mg PO DAILY 07/31/19 [History Confirmed 08/12/19] Topiramate 50 mg PO DAILY 07/31/19 [History Confirmed 08/12/19] ciprofloxacin HCl 500 mg tablet 500 mg PO BID #14 tab 08/09/19 [Rx Confirmed 08/12/19] metronidazole 500 mg tablet 500 mg PO Q8H #21 tab 08/09/19 [Rx Confirmed 08/12/19] Is last menstrual period known: No Post menopausal: Yes Patient : No Subjective Details: Patient reports that she is feeling better and the pain that was near her tailbone has gone away. Her only pain is around the drain. She has no nausea or vomiting. Objective Details: The area still has some induration but no fluctuance. Drain was removed. Assessment AND Plan Problems 1. Perirectal abscess K61.1 Plan Patient appears to be doing better than she was during her last visit. She says the pain is receding. I advised her to continue the antibiotics and I removed her drain. She will follow-up in 1 week. If anything worsens in the meantime she will call and follow-up sooner. I advised her that if anything were to worsen or this would come back I would recommend a CT scan and debridement with exam under anesthesia to check for fistula. Que Hernandez MD Pager: [facility] [address] [place] [address], [address] [place] [phone] Office: Coding Level of Care Code Global Post Op Diagnoses Perirectal abscess K61.1 08/12/19 0352 <Electronically signed by Que Hernandez MD> Date Que Hernandez MD Cosigner Signature: Date (if applicable) CC: Juan Lares Start: 08-09-2019 End: 08-09-2019 Surgery Visit Report Comments: See Note; NOTES: [facility] [address] [place] [address]. [address] [place] [address] OFFICE VISIT Date of Service: 08/09/19 MR#: [id number] Acct: [id number] Name: MARGOT HUTCHISON Rep #: [id number] : 1965 Provider: Que Hernandez MD Age/Sex: 54/F Location: [facility] Status: Signed Intake Intake Visit Reasons: Perirectal Abscess ER 07/31 Band Sewer Required: No Is patient in pain?: Yes (rectum) Pain scale (1-10): 8 Allergies metaxalone Allergy (Verified 07/31/19 22:13) Anaphylaxis amoxicillin [From Augmentin] Adverse Reaction (Verified 07/31/19 22:13) Nausea clavulanic acid [From Augmentin] Adverse Reaction (Verified 07/31/19 22:13) Nausea ANTI FUNGALS Allergy (Uncoded 07/31/19 22:13) Rash Medications Duloxetine Hcl [Cymbalta] 60 mg PO DAILY 03/15/16 [History Confirmed 08/09/19] oxycodone-acetaminophen 5 mg-325 mg tablet 2 tab PO BID 30 Days #60 tab 06/27/17 [History Confirmed 08/09/19] tizanidine 4 mg capsule 4 mg PO TID 20 Days #60 cap 06/27/17 [History Confirmed 08/09/19] Amitriptyline HCl 100 mg PO DAILY 09/10/17 [History Confirmed 08/09/19] clonazepam 0.5 mg tablet 0.5 mg PO DAILY tab 02/22/19 [History Confirmed 08/09/19] primidone 50 mg tablet 150 mg PO BID tab 02/22/19 [History Confirmed 08/09/19] rosuvastatin 10 mg tablet 20 mg PO QDAY tab 02/22/19 [History Confirmed 08/09/19] trazodone 100 mg tablet 450 mg PO QHS 90 Days #90 tab 02/22/19 [History Confirmed 08/09/19] Cariprazine HCl [Vraylar] 1 tab PO DAILY 07/31/19 [History Confirmed 08/09/19] Lidocaine 2% Jelly [Xylocaine 2% Jelly] 5 ml TOPICAL 5X/DAY PRN #30 g 07/31/19 [Rx Confirmed 08/09/19] Omeprazole 20 mg PO DAILY 07/31/19 [History Confirmed 08/09/19] Topiramate 50 mg PO DAILY 07/31/19 [History Confirmed 08/09/19] ciprofloxacin HCl 500 mg tablet 500 mg PO BID #14 tab 08/09/19 [Rx Confirmed 08/09/19] metronidazole 500 mg tablet 500 mg PO Q8H #21 tab 08/09/19 [Rx Confirmed 08/09/19] PFSH Medical History Pure hypercholesterolemia (Chronic) Syncope and collapse (Chronic) Chest pain (Chronic) Anxiety (Chronic) HLD (hyperlipidemia) (Inactive) Surgical History TEMO carpal tunnel surgery (Chronic) H/O laminectomy (Chronic) H/O: hysterectomy (Chronic 1979) History of surgical removal of ganglion cyst (Chronic) cervical fusion (Chronic 06/2010) Family History Mother Anxiety and depression Grandfather CVA (cerebral vascular accident) Hypertension Grandmother Diabetes Social History (Updated 08/09/19 @ 11:[address] Que Hernandez MD) Smoking Status: Current every day smoker Electronic Cigarette Use: with nicotine alcohol intake: current substance use type: does not use caffeine: Yes Type: tea Number of servings: 2 what type of physical activity do you participate in: other details: riding horses seatbelt use: sometimes do you feel safe at home: Yes HPI HPI HPI: MARGOT HUTCHISON, is a 54 F who presents to the office today for HPI HPI HPI: MARGOT HUTCHISON is a 54 F who presents to the office today for Rectal pain. Patient was in the emergency room 1 week ago and had I AND D of the perirectal area on the left. Purulence was removed and the patient was doing sitz baths but she reports that the drain fell out within 12 hours and the skin sealed back over and she is still having pain. ROS General General: No weight change or fatigue Cardio Cardiovascular: No murmur, pacemaker, heart disease, atrial fibrillation, high blood pressure, heart attack, heart stent, palpitations, shortness of breat with exertion or chest pain Psych Psychiatric: No depression or anxiety Resp Respiratory: No shortness of breath, No sleep apnea, No cough, No COPD, No asthma, No emphysema, No wheezing Gastro Gastrointestinal: No abdominal pain, No nausea or vomiting, No diarrhea, No constipation, No blood in stool, No acid reflux, No hemorrhoids, No ulcers, No gallbladder problem, No black,tarry stools Additional Details: Perirectal pain Abhijit Hematologic: No blood thinners Exam Const General: cooperative Orientation: alert, oriented x3 Resp Effort AND Inspection: normal respiratory effort Auscultation: clear to auscultation bilaterally Cardio Rate: regular rate Rhythm: regular rhythm Heart Sounds: no murmurs GI Inspection: non-distended Palpation: soft, nontender Other: There is an area of tenderness and induration in the left side of the perirectal area Office Procedures Incision and Drainage Provider Documentation Provider Documentation: The patient's perirectal area was prepped and draped in usual sterile fashion. An area to the left of the anus was injected with lidocaine. Next a small incision was made and this was deepened to the abscess cavity. A small amount of lau purulent material was expressed. Loculations were broken up and there was no further swelling that was able to be drained. A small Malecot drain was placed into the incision and sutured to the skin using a 3-0 nylon suture. Patient tolerated the procedure well. Incision and Drainage 97779 Complex/Multiple Procedure Time Out Time Out Informed consent given: Yes Consent signed: Yes Time out checklist: patient, procedure, site marked/identified, positioning of patient, supplies available, allergies confirmed, team agrees on procedure Time out staff in room: Yes Time out verified: Yes Time out date: 08/09/19 Time out time: 10:30 Assessment AND Plan Problems 1. Perirectal abscess K61.1 Plan I performed further incision and drainage of the left perirectal abscess in the office. Malecot drain was placed. She will follow-up on for drain removal. I will renew her Cipro and Flagyl for an additional 7 days. If there is any increased pain or fevers or chills or increase in drainage she is to report to the emergency room. Que Hernandez MD Pager: [facility] [address] [place] [address] [address] [place] [address] Office: Orders Orders: Medications Refilled: Coding Level of Care Code Attention Maintenance Dispatcher Diagnoses Perirectal abscess K61.1 Additional Codes Incision and Drainage - I AND D: 28533 Complex/Multiple (66155) 08/09/19 1106 <Electronically signed by Que Hernandez MD> Date Que Hernandez MD Cosigner Signature: Date (if applicable) CC: Juan Lares Start: 02-22-2019 End: 02-22-2019 Cardiology Visit Report Comments: See Note; NOTES: [facility] [address] [place], [place] [id number] OFFICE VISIT Date of Service: 02/22/19 MR#: [id number] Acct: [id number] Name: MARGOT HUTCHISON Rep #: [id number] : 1965 Provider: Sarita Nj Age/Sex: 54/F Location: [facility] Status: Signed HPI [facility] History of Present Illness Details: MARGOT HUTCHISON, is a 52 F who presents to the office today for a cardiovascular outpatient follow-up. She has a history of syncope, chest discomfort, and previous history of smoking for 40 years with a pack per day. Pt sts that she does occasionally have lightheadedness. She has not had any near syncope/syncope. She does not have any chest pain/heaviness/tightness. She does not have any worsening SOB. She does not have any palpitations. She does not have any edema. Intake Vital Signs02/22/19 Height 5 ft 9 in 02/22/19 Weight: 151 lb 02/22/19 Body Mass Index (BMI) 22.3 Intake Visit Reasons: 1 Y FU Band Sewer Required: No Accompanied by: none Is patient in pain?: No Allergies metaxalone Allergy (Verified 02/22/19 08:37) Anaphylaxis ANTI FUNGALS Allergy (Uncoded 09/10/17 14:15) Rash Medications Duloxetine Hcl [Cymbalta] 90 mg PO DAILY 03/15/16 [History Confirmed 02/22/19] oxycodone-acetaminophen 5 mg-325 mg tablet 2 tab PO BID 30 Days #60 tab 06/27/17 [History Confirmed 02/22/19] tizanidine 4 mg capsule 4 mg PO TID 20 Days #60 cap 06/27/17 [History Confirmed 02/22/19] Amitriptyline HCl 100 mg PO DAILY 09/10/17 [History Confirmed 02/22/19] buspirone 10 mg tablet 10 mg PO BID 02/22/19 [History Confirmed 02/22/19] cimetidine 400 mg tablet 400 mg PO QHS 02/22/19 [History Confirmed 02/22/19] clonazepam 0.5 mg tablet 0.5 mg PO DAILY tab 02/22/19 [History Confirmed 02/22/19] primidone 50 mg tablet 150 mg PO BID tab 02/22/19 [History Confirmed 02/22/19] rosuvastatin 10 mg tablet 20 mg PO QDAY tab 02/22/19 [History Confirmed 02/22/19] trazodone 100 mg tablet 200 mg PO QHS 90 Days #90 tab 02/22/19 [History Confirmed 02/22/19] PFSH Medical History (Updated 02/22/19 @ 09:45 by OMAR Galvez) Pure hypercholesterolemia (Chronic) Syncope and collapse (Chronic) Chest pain (Chronic) Anxiety (Chronic) H/O: hysterectomy (Chronic 1979) HLD (hyperlipidemia) (Inactive) Surgical History TEMO carpal tunnel surgery (Chronic) H/O laminectomy (Chronic) History of surgical removal of ganglion cyst (Chronic) cervical fusion (Chronic 06/2010) Family History Mother Anxiety and depression Grandfather CVA (cerebral vascular accident) Hypertension Grandmother Diabetes Social History (Updated 02/22/19 @ 15:01 by OMAR Galvez) Smoking Status: Former smoker Electronic Cigarette Use: with nicotine alcohol intake: current substance use type: does not use caffeine: Yes Type: tea Number of servings: 2 what type of physical activity do you participate in: other details: riding horses seatbelt use: sometimes do you feel safe at home: Yes ROS Const Const: Negative for fatigue, weakness, fever(s) or headache(s) Eyes Eyes: Negative for blind spots, loss of peripheral vision or transient loss of vision ENT ENT: Negative for headache(s), dizziness, tinnitus or Nosebleed/epistaxis Cardio Chest Pain: No Palpitations: No Edema: None Muscle aches with walking: None Resp Respiratory: Negative for SOB with activity, SOB at rest, SOB orthopnea\SOB lying down or Cough GI GI: Negative nausea, vomiting, heartburn or vomiting blood/hematemesis : Negative for hematuria Musc Musc: Negative for muscle aches/ myalgia Neuro Neuro: Negative for dizziness, lightheadedness, near syncope, syncope, orthostatic symptoms, headache(s) or weakness Abhijit Hematologic/Lymphatic: Negative for easy bleeding Endo Endo: Negative for fatigue Cardiology Exam Const Appearance: cooperative, no acute distress and well developed Orientation: alert, awake and oriented x3 Head Head: normocephalic and atraumatic Mouth: moist mucous membranes Eyes General: appearance normal, both eyes and all related structures Conjunctivae: conjunctivae normal Pupils: PERRL EOM: EOM intact bilaterally Neck Neck: normal visual inspection, no lymphadenopathy and no JVD Carotids: Negative bruit Neck Mass: Negative Neck mass Chest Chest inspection: normal inspection of the chest and symmetric chest movement Auscultation: Bilateral: Clear to Auscultation Cardio Palpation: normal PMI Rate: regular rate Rhythm: regular rhythm Heart sounds: S1 normal and S2 normal; negative rub, gallop or murmur GI GI: normal to inspection, soft, no hepatosplenomegaly and bowel sounds present; negative tender Neuro General: alert, awake, oriented x3, CN's II-XI intact bilaterally and moves all extremities Extremities Pulses: Normal: Right Posterior Tibial Pulse, Left Posterior Tibial Pulse, Right Radial Pulse, Left Radial Pulse Lower Extremity Edema: None: Bilateral Psych Psychological: normal affect Assessment AND Plan 1. Syncope and collapse R55 Plan Patient has not had any further recurrence. We will continue to monitor. She is aware of adequate hydration. 2. Pure hypercholesterolemia E78.00 Plan This is managed by her primary care doctor. She will continue with her current moderate intensity statin. Plan Detail Additional Comments Thank you for allowing us to participate in patient's plan of care, if you have any questions please do not hesitate to call. This note was generated using a voice recognition system and there may be incorrect words, spelling or punctuation errors that were not noted when reviewing the office note prior to saving. Follow Up 1 Year (PFM) Coding Level of Care Code Off vis,est,level 3 Diagnoses Syncope and collapse R55 Pure hypercholesterolemia E78.00 Coding Level of Care Code Off vis,est,level 3 Diagnoses Syncope and collapse R55 Pure hypercholesterolemia E78.00 Supplemental Info Supplemental Information Tilt test in 2017 demonstrated:70 upright tilt table study pre-and post nitroglycerin sublingual challenge noted for symptomatology compatible with underlying vasovagal mediated activity, however, considered negative for reproducible vasovagal/neurocardiogenic mediated near syncope/syncope. Stress echocardiogram from April 2017 showed estimated ejection fraction 55% and was considered negative. Event monitor from April 2017 showed sinus rhythm, sinus tachycardia, and occasional PACs/PVCs. Echocardiogram from February 2017 showed estimated ejection fraction of 60% and mild tricuspid regurgitation. Carotid duplex from November 2016 showed no significant plaque disease reported. Holter monitor from February 2017 shows sinus rhythm with rare PACs/PVCs and no sustained narrow or wide-complex runs. Symptoms of dizziness did not correlate with scan. Coronary calcium score: 2018 High-resolution computed tomographic imaging of the chest was performed on 05/22/2018 with particular attention paid to the coronary arteries. Images from the examination were analyzed for the presence and stent of coronary artery calcification using the coronary calcium quantification software. The patient tolerated the procedure well and there were no complications. The results of the coronary calcification analysis are provided below: Left main coronary artery score of 0 Left anterior descending artery calcium score of 0 Left circumflex artery calcium score of 0. Right coronary artery. Calcium score 0. Total calcium score 0. Conclusion: The above is indicative of minimal or no significant atherosclerotic plaquing Diagnostics Electrocardiogram 10/16/17 Cardiac Tilt Table Test 05/27/[address] 05/22/18 02/22/19 1501 <Electronically signed by Sarita NELSON> Date Sarita NELSON Cosigner Signature: Date (if applicable) CC: Juan Lares Start: 01-26-2019 End: 01-26-2019 Elbow min 3 Views Comments: See Note; NOTES: [facility] [address] [place] [address] Elbow min 3 Views MR#: [id number] Acct: [id number] Name: MARGOT HUTCHISON Rep #: [id number] : 1965 F 53 From: Xu Fernandez MD PCP: Juan Chan DO Status: REG CLI Study: Elbow min 3 Views Date of Exam: 01/26/19 Exam# [id number] Ordering Dr: Margot London PRODUCTION SUPPLY EQUIPMENT TENDER-C STUDY: X-RAY - LEFT ELBOW REASON FOR EXAM: Female, 53 years old. Increasing elbow pain. Remote history of fracture. TECHNIQUE: 3 view(s) of the elbow. COMPARISON: None. FINDINGS: Normal visualized humerus, radius and ulna. Normal radiocapitellar and ulnotrochlear articulations. The soft tissue structures are unremarkable. There is no demonstrated osseous destructive lesion or acute fracture. RAD/Elbow min 3 Views IMPRESSION: Normal x-ray examination of the left elbow. Electronically Signed: Gui Fernandez MD at 14:34 EDT , Service support , CC: Juan Chan DO; Margot HENRY [facility] Jet Dyeing Machine Operator: Signed Juan Chan Start: 10-03-2018 End: 10-03-2018 Emergency Department Summary Comments: See Note; NOTES: [facility] Medical Records Department [address] [place] [id number] Emergency Department Summary 10/03/18 0131 MR#: [id number] Acct: [id number] Name: MARGOT HUTCHISON Rep #: [id number] : 1965 53 From: Jermaine Lind MD PCP: Juan Chan DO Status: REG ER History of Present Illness Chief Complaint: Abd Pain Informant: Patient Onset: Today Context: Gradual Onset Timing: Continuous Quality: achy Location: throughout lower half of abd, bilat Current Severity: Moderate Maximum Severity: Moderate Worsened by: nothing Relieved by: nothing Associated Symptoms: see below. no n/v/d, BRBPR/melena, fevers, bloating. Narrative: Patient states she had a hysterectomy remotely. She states around 6-7 months ago, she weight loss, due to poor appetite and feeling depressed because of her having an illness, and around that time she started having discomfort from her vagina up into her mid abdomen. She has had associated difficulty getting urination started since then as well. That has all been persistent ever since and she has seen no one for it yet. She states today she got lower abdominal discomfort that became persistent. No other new symptoms. Chronic back discomfort that is unchanged. - Past Medical History (1) Chronic low back pain Status: Chronic (2) HLD (hyperlipidemia) Status: Chronic Past Medical History - Allergies and Home Meds Allergies/Adverse Reactions: Allergies metaxalone Allergy (Verified 10/02/18 23:39) Anaphylaxis ANTI FUNGALS Allergy (Uncoded 09/10/17 14:15) Rash Primary Care Physician: Juan Chan DO [Primary Care Provider] - Surgical History: hysterectomy Lives: Spouse/ Significant Other Smoking Status: Former smoker Review of Systems General: Denies: Chills, Fever, Sweats Eyes: Denies: Visual changes - bilaterally, Diplopia ENT: Denies: Rhinorrhea, Sore throat Cardiovascular: Denies: Chest pain, Palpitations Respiratory: Denies: Dyspnea, Cough, Dyspnea on exertion Gastrointestinal: Reports: Abdominal pain. Denies: Nausea, Vomiting, Diarrhea, Melena, Hematochezia Genitourinary: Reports: - - Vaginal pain. No discharge. No bleeding., - - Urinary hesitancy. Denies: Dysuria, Hematuria, Frequency Musculoskeletal: Reports: Back pain. Denies: Neck pain, Swelling, Extremity Pain Skin: Denies: Rash, Wounds Neurological: Denies: Headache, Weakness, Numbness Physical Exam Vital Signs/Narrative: Vital Signs 10/02/18 23:33 98.0 F 81 16 139/83 H 98 Inital Vital Signs reviewed: Yes General: Well nourished, Well developed, No Acute Distress Head: Normocephalic, Atraumatic Eyes: Perrl, EOMI ENT: Moist mucous membranes, No rhinorrhea Neck: Supple, Nontender Cardiovascular: Regular rate, Regular rhythm, No murmurs Respiratory: No distress, CTA bilaterally, Chest nontender Abdomen: Soft, Nondistended, Normal bowel sounds, Tender - Mild tenderness diffuse lower abdomen, nonfocal. Negative for: Guarding, Rebound tenderness Back: Nontender, Normal Inspection. Negative for: CVA tenderness Extremities: Nontender, No edema Skin: Normal color, No rash Neurological: Alert, Oriented x3, Cranial nerves II-XII grossly intact, Normal Strength, Normal Sensation Psychological: Normal affect, Normal Mood Diagnostic/Tx/Re-eval Laboratory Tests WBC 6.4 (4.4-11.0) K/mm3 RBC 4.27 (4.2-5.4) M/mm3 Hgb 12.3 (12.0-15.0) g/dl Clinical Impression(s) from Imaging Studies Abdomen/Pelvis CT 10/03/18 23:55 IMPRESSION: 1. 3 x 1 mm right UVJ stone with mild hydronephrosis and hydroureter proximal to the stone. 2. Diverticulosis coli with increased colonic fluid which may be related to diarrhea. 3. No free fluid. Individualized dose optimization techniques were used for this CT. at 0206 Reported and signed by: Michael Ortiz MD Electronically Signed: Michael Ortiz, at 2:05 EDT Tel , Service support , - Medical Decision Making Patient got better with morphine, but stated that she was worse although she appear to be in no acute distress. There was concern for appendicitis or diverticulitis, but it was odd that she was in pain and tender bilaterally in the abdomen. Her labs are unremarkable, urine shows trace blood, no signs of infection, and CT came back showing a 3 x 1 mm right UVJ stone with associated hydroureter and hydronephrosis, which is likely causing her pain because it is likely acute, as her pain is. Unusual that it is bilateral however. That being the case, she should be able to pass this on her own with expectant management. She will given additional analgesics here, strainers for use at home, as well as a prescription for Flomax and she was warned about first dose syncope. Advised to follow-up with urology if she goes a week or more without resolution of her pain or passing stone. Also given referral to gynecology unassigned Dr. 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 All questions answered at bedside she is comfortable with this plan and in stable condition clinically and hemodynamically. ED Disposition - Plan for ED Patient: Disposition: Home or Assisted Living Diagnosis: Lower abdominal pain, Urolithiasis Instructions: ED Stone Renal W Colic, ED Strainer Urine Prescriptions: Hydrocodone Bitart/Apap 5-325 [[place]cher [place] 5MG-325MG] 1 tab PO Q4H PRN PRN 2 Days #10 tab PRN Reason: Pain Tamsulosin HCl [Flomax] 0.4 mg PO DAILY #7 cap.er.24h Referrals: Juan Chan DO [Primary Care Provider] - Ayaka Veliz MD [STAFF PHYSICIAN] - 1 Week if not improving Caro Estevez MD [STAFF PHYSICIAN] - (for CAR SALES CONSULTANT care) What to do if you have Problems For any increased pain, shortness of breath, bleeding, nausea or vomiting, chest pain, or any unexpected problems, contact your Primary Care Provider. Call [facility] ([phone]) or report to the closest Emergency Room. Call 911 if necessary. 10/03/18 0227 <Electronically signed by Jermaine Lind MD> Date Jermaine Lind MD Cosigner Signature (If Indicated): Date CC: Juan Lares Start: 10-02-2018 End: 10-03-2018 Abdomen/Pelvis W IV Cont ONLY Comments: See Note; NOTES: [facility] [address] [place] [id number] Abdomen/Pelvis W IV Cont ONLY MR#: [id number] Acct: [id number] Name: MARGOT HUTCHISON Rep #: [id number] : 1965 F 53 From: Michael Ortiz MD PCP: Juan Chan DO Status: REG ER Study: Abdomen/Pelvis W IV Cont ONLY Date of Exam: 10/03/18 Exam# [id number] Ordering Dr: Jermaine Lind MD HISTORY: DIFFUSE LOW ABDOMEN/PELVIC PAIN X 2 MONTHS BUT WORSE NOWHX:HLD,HYSTERECTOMY,BSO EXAMINATION: CT Abdomen And Pelvis W/ Contrast TECHNIQUE: Helically acquired images were obtained of the abdomen and pelvis following IV contrast. A radiation dose optimization technique was used for this scan. IV Contrast dosage and agent: 100ML Isovue 300 Oral contrast: None. COMPARISON: None FINDINGS: Lower thorax: Mild dependent atelectasis, not unusual. No pleural effusion. The gallbladder is well distended and is otherwise negative. No biliary dilatation. Normal liver, spleen, and pancreas. Both kidneys are normal in position. 3 x 1 mm right UVJ stone with mild hydronephrosis and hydroureter proximal to the stone. No hydronephrosis or hydroureter on the left. Adrenal glands are not enlarged. Abdominal aorta is atherosclerotic abdomen caliber. No ascites or retroperitoneal lymph enlargement. GI tract: No obstruction. Diverticulosis coli. Increased colonic fluid compared to normal. Normal appendix. Pelvis: Hysterectomy. No free fluid or lymph node enlargement. Urinary bladder is normally distended. Bones: No acute osseous abnormality. CT/Abdomen/Pelvis W IV Cont ONLY IMPRESSION: 1. 3 x 1 mm right UVJ stone with mild hydronephrosis and hydroureter proximal to the stone. 2. Diverticulosis coli with increased colonic fluid which may be related to diarrhea. 3. No free fluid. Individualized dose optimization techniques were used for this CT. at 0206 Reported and signed by: Michael Ortiz MD Electronically Signed: Michael Ortiz, at 2:05 EDT Tel , Service support , CC: JERMAINE LIND MD; Juan Chan DO Jet Dyeing Machine Operator: Signed Juan Chan Start: 06-18-2018 End: 06-19-2018 Dexa Bone Density Study Comments: See Note; NOTES: [facility] [address] [place] [address] Dexa Bone Density Study MR#: [id number] Acct: [id number] Name: MARGOT HUTCHISON Rep #: [id number] : 1965 F 53 From: Prasanna Espinoza MD PCP: Juan Chan DO Status: REG CLI Study: Dexa Bone Density Study Date of Exam: 06/18/18 Exam# [id number] Ordering Dr: Juan Chan DO STUDY: DUAL ENERGY X-RAY ABSORPTIOMETRY / DXA REASON FOR EXAM: Female, 53 years old. The patient is postmenopausal. Loss of height. TECHNIQUE: Bone Mineral Density (BMD) measurements of lumbar spine and bilateral hips were obtained. COMPARISON: None. FINDINGS: Lumbar Spine (L1-L4): g/cm2 (1.085) / T-score (-0.7) / Z-score (0.0) Findings are suggestive of normal bone density with a low fracture risk. Left Femur Total: g/cm2 (0.926) / T-score (-0.6) / Z-score (0.0) Left Femoral Neck: g/cm2 (1.002) / T-score (-0.3) / Z-score (0.7) Right Femur Total: g/cm2 (0.857) / T-score (-1.2) / Z-score (-0.6) Right Femoral Neck: g/cm2 (0.913) / T-score (-0.9) / Z-score (0.1) BD/Dexa Bone Density Study IMPRESSION: The patient is considered osteopenic as outlined below according to World Keshav Organization (WHO) criteria with a low fracture risk. Reference Information: The T-score is the number of standard deviations above or below the standard which is normal for young adults at their peak bone mineral density. The World Health Organization (WHO) interprets the T-scores as follows: Above -1 Normal bone density Between -1 and -2.5 Osteopenia Equal to / or below -2.5 Osteoporosis As a practical clinical guideline, osteopenia may be graded as follows: Mild -1 through -1.5 Moderate -1.6 through -2.0 Severe -2.1 through -2.4 The Z-score is the number of standard deviations above or below age-matched controls. A Z-score of less than -1.5 would be considered abnormal. References: 1. NIH Osteoporosis and Related Bone Diseases http://www.osteo.org 2. International Society for Clinical Densitometry http://www.iscd.org 3. National Osteoporosis Foundation http://www.nof.org Electronically Signed: Prasanna Espinoza MD at 12:46 EST Tel [phone], Service support , CC: Juan Chan DO Jet Dyeing Machine Operator: Signed Juan Chan Work Phone: Start: 06-18-2018 End: 07-08-2018 SCREENING MAMM (CAD), BILAT Comments: See Note; NOTES: [facility] Imaging Services [address] [place] [address] SCREENING MAMM (CAD), BILAT MR#: [id number] Acct: [id number] Name: MARGOT HUTCHISON Rep #: [id number] : 1965 F 53 From: Prasanna Espinoza MD PCP: Juan Chan DO Status: [facility] CLI Study: SCREENING MAMM (CAD), BILAT Date of Exam: 06/18/18 Exam# [id number] Ordering Dr: Juan Chan DO MAMMOGRAPHY - BILATERAL SCREENING REASON FOR EXAM: Female, 53 years old. Routine annual screening examination. PERTINENT HISTORY: Non-contributory. TECHNIQUE: Digital bilateral breast chelsey (3D mammographic acquisition) in the CC and MLO projections. 2-D mediolateral oblique (MLO) and craniocaudad (CC) views of both breasts were obtained. CAD: Full Field Digital Mammography with Computer Added Detection was performed. COMPARISON: No comparison mammograms available at this time. If any prior films become available, an addendum to this report can be generated. FINDINGS: Breast Composition: There are scattered areas of fibroglandular density. There are no dominant masses or suspicious calcifications. No other significant abnormalities are identified. BI/SCREENING MAMM (CAD), BILAT IMPRESSION: Negative screening mammogram. Yearly followup mammogram recommended. (A) ASSESSMENT CATEGORY: BIRADS Category 1: Negative. A letter regarding these results will be sent to the patient by the facility within 30 days. Approximately 10% of breast cancers are not detected by mammography. A normal mammogram should not delay biopsy of a clinically suspicious abnormality. [id number] Electronically Signed: Prasanna Espinoza MD at 8:16 EST Tel [phone], Service support , CC: Juan Chan DO Jet Dyeing Machine Operator: Signed Juan Chan Work Phone: Start: 05-22-2018 End: 05-22-[address] w/CCTA Comments: See Note; NOTES: [facility] Imaging Services [address] [place] [address] w/CCTA MR#: [id number] Acct: [id number] Name: MARGOT HUTCHISON Rep #: [id number] : 1965 F 53 From: Prasanna Espinoza MD PCP: Juan Chan DO Status: REG CLI Study: Limited Chest CT w/CCTA Date of Exam: 05/22/18 Exam# [id number] Ordering Dr: Juan Chan DO STUDY: CT CHEST WITHOUT CONTRAST REASON FOR EXAM: Female, 53 years old. Abnormal EKG. Calcium scoring examination. This is a lung over read study. RADIATION DOSAGE (If Supplied By Facility): CTDIvol = ( 12.19 ) mGy, DLP = ( 243.79 ) mGycm TECHNIQUE: Transaxial imaging was performed without the administration of intravenous contrast material. Individualized dose optimization techniques were used for this CT. COMPARISON: None. FINDINGS: Mild degree of dependent bibasilar atelectasis. There is no demonstrated pleural abnormality. Normal heart and pericardium. There are multiple small lymph nodes within the mediastinum, which are normal in size and morphology most compatible with reactive lymph hyperplasia. Normal hilar regions. Normal unenhanced pulmonary arteries. Normal aorta arch and descending thoracic aorta. Normal osseous structures. There is no demonstrated abnormality of the visualized upper abdomen. CT/Limited Chest CT w/CCTA IMPRESSION: Normal unenhanced CT Chest examination. Electronically Signed: Prasanna Espinoza MD at 15:23 EST Tel [phone], Service support , CC: Juan Chan DO Jet Dyeing Machine Operator: Signed Juan Chan Work Phone: Start: 05-22-2018 End: 05-22-[address] Lung Screening Comments: See Note; NOTES: [facility] Imaging Services [address] [place] [address] Lung Screening MR#: [id number] Acct: [id number] Name: MARGOT HUTCHISON Rep #: [id number] : 1965 F 53 From: Prasanna Espinoza MD PCP: Juan Chan DO Status: [facility] Study: Low Dose CT Lung Screening Date of Exam: 05/22/18 Exam# [id number] Ordering Dr: Juan Chan DO STUDY: LOW DOSE CT LUNG CANCER SCREENING REASON FOR EXAM: Female, 53 years old. Long-term smoker. RADIATION DOSAGE (If Supplied By Facility): CTDIvol = ( 3.02 ) mGy, DLP = ( 115.88 ) mGycm TECHNIQUE: No contrast was administered. Low dose technique was utilized (average mAS-38 and kVp 120). 1.25 mm axial source images with a slice interval of 1.25-mm were reconstructed in lung windows. 2.5 mm axial source images with a slice interval of 2.5-mm were reconstructed in lung windows. 5.0 mm axial source images with a slice interval of 5.0-mm were reconstructed in soft tissue windows. Nodule measured using lung windows on PACS and/or independent workstation with automated measurement of minimum and maximum diameter. Nodule measurement reported as average diameter rounded to the nearest whole number. Growth is defined as an increase ins size of greater than 1.5 mm. COMPARISON: None. NODULES: No suspicion nodule seen. Emphysema: Mild bullous changes in the lung apices. Endobronchial lesion: None Aorta: Unremarkable Coronary arteries: Unremarkable Other chest and abdominal findings: CT/Low Dose CT Lung Screening IMPRESSION: Lung-RADS category 2 - Continue annual screening with LDCT in 12 months. IMPORTANT NOTES FOR USE: ACR Lung-RADS Version 1.0 Assessment Categories Release Date: October 25, 2013 Category: Coded 0-4 bases on nodule(s) with highest degree of suspicion. Negative screen is defined as categories 1 and 2; a positive screen is defined as categories 3 and 4. Category 3 and 4A nodules that are unchanged on interval CT should be coded as category 2, and individuals returned to screening in 12 months. Category 4X: Category 3 or 4 nodules with additional imaging findings that increase the suspicion of lung cancer, such as spiculation, GGN that doubles in size in 1 year, enlarged lymph notes, etc. Category Modifiers: S (significant finding unrelated to lung cancer) and C (prior history of treated lung cancer) may be added to the 0-4 Lung-RADS Electronically Signed: Prasanna Espinoza MD at 15:16 EST Tel [phone], Service support , CC: Juan Chan DO Jet Dyeing Machine Operator: Signed Juan Chan Work Phone: Start: 05-13-2018 End: 05-13-2018 Blood pressure within normal parameters - no follow-up required Darvin Suggs MD Work Phone: Start: 05-13-2018 End: 05-13-2018 BMI documented within normal parameters - no follow-up plan is required Darvin Suggs MD Work Phone: Start: 05-13-2018 End: 05-13-2018 Documentation of current medications Darvin Suggs MD Work Phone: Start: 05-13-2018 End: 05-13-2018 Pain assessment documented as positive - follow-up documented Darvin Suggs MD Work Phone: Start: 05-13-2018 End: 05-13-2018 Pt tobacco screen rcvd tlk Darvin Suggs MD Work Phone: Start: 10-16-2017 End: 10-16-2017 Cardiology Visit Report Comments: See Note; NOTES: [facility] [address] [place] [address] [place] [place], [place] [address] OFFICE VISIT Date of Service: 10/16/17 MR#: [id number] Acct: [id number] Name: MARGOT HUTCHISON Rep #: [id number] : 1965 Provider: ELYSIA Alonzo Age/Sex: 52/F Location: [facility] Status: Signed HPI HPI Details: MARGOT HUTCHISON, is a 52 F who presents to the office today for a cardiovascular outpatient follow-up. She has a history of syncope, chest discomfort, and previous history of smoking for 40 years with a pack per day. Pt. denies arm, jaw, or neck discomfort. 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 Pt. denies symptoms of palpitations, near syncope, or syncopal episodes. Pt. denies edema or claudication issues. Pt. denies orthopnea, PND, fever, chills, blood in urine, blood in stool, myalgia, or unexplainable fatigue. Pt. continues to have random episodes of chest pain that doesn't always correlate with exertion. Patient states SOB with lifting heavy object that seems worse with the heat. She states an extensive smoking history of 40 years with pack per day. Pt. continues to have episodes of dizziness and lightheadedness that she has to rest her head down. This clears after one minute. She states these episodes have improved. She states last episode was about a month ago and occured randomly. She denies any secondary symptoms during the episodes. Intake Vital Signs10/16/17 Height 5 ft 9 in 10/16/17 Weight: 166 lb 10/16/17 Body Mass Index (BMI) 24.5 10/16/17 Blood Pressure 132/80 Intake Visit Reasons: 2 M Band Sewer Required: No Accompanied by: Is patient in pain?: No Allergies ANTI FUNGALS Allergy (Uncoded 09/10/17 14:15) Rash Medications Clonazepam [Klonopin] 0.5 mg PO BID 03/15/16 [History Confirmed 10/16/17] Duloxetine Hcl [Cymbalta] 90 mg PO DAILY 03/15/16 [History Confirmed 10/16/17] meloxicam 7.5 mg tablet 7.5 mg PO BID 30 Days #30 tab 06/27/17 [History Confirmed 10/16/17] oxycodone-acetaminophen 5 mg-325 mg tablet 1 tab PO BID 30 Days #60 tab 06/27/17 [History Confirmed 10/16/17] rosuvastatin 10 mg tablet 10 mg PO QDAY 06/27/17 [History Confirmed 10/16/17] tizanidine 4 mg capsule 4 mg PO TID 20 Days #60 cap 06/27/17 [History Confirmed 10/16/17] trazodone 100 mg tablet 100 mg PO QHS 90 Days #90 tab 06/27/17 [History Confirmed 10/16/17] Amitriptyline HCl 50 mg PO DAILY 09/10/17 [History Confirmed 10/16/17] topiramate 50 mg tablet 50 mg PO BID tab 10/16/17 [History Confirmed 10/16/17] PFSH Medical History HLD (hyperlipidemia) (Chronic) Syncope and collapse (Chronic) Chest pain (Chronic) Surgical History TEMO carpal tunnel surgery (Chronic) H/O laminectomy (Chronic) H/O: hysterectomy (Chronic 1979) History of surgical removal of ganglion cyst (Chronic) cervical fusion (Chronic 06/2010) Family History Mother Anxiety and depression Grandfather CVA (cerebral vascular accident) Hypertension Grandmother Diabetes Social History Smoking Status: Never smoker alcohol intake: current substance use type: does not use caffeine: Yes Type: tea Number of servings: 2 what type of physical activity do you participate in: other details: riding horses seatbelt use: sometimes do you feel safe at home: Yes ROS Const Const: Negative for weakness, body ache, fever(s), chills or fatigue ENT ENT: Positive for dizziness Cardio Chest Pain: Yes Palpitations: No Edema: None Muscle aches with walking: None Resp Respiratory: Positive for SOB with activity; negative for SOB at rest, SOB orthopnea\SOB lying down or paroxysmal nocturnal dyspnea GI GI: Negative nausea, black,tarry stools, bright, red blood in stools or vomiting blood/hematemesis : Negative for hematuria or frequent nighttime urination/ nocturia Musc Musc: Negative for muscle aches/ myalgia Neuro Neuro: Positive for lightheadedness and dizziness; negative for near syncope, syncope, orthostatic symptoms or weakness Endo Endo: Negative for fatigue Cardiology Exam Const Appearance: cooperative, healthy appearing, comfortable and no acute distress Orientation: alert, awake and oriented x3 Head Head: normal to inspection Mouth: oral mucosae normal Neck Neck: no JVD and normal visual inspection Carotids: normal carotid upstroke Chest Chest inspection: normal inspection of the chest and normal respiratory effort Auscultation: Bilateral: Clear to Auscultation Cardio Rate: regular rate Rhythm: regular rhythm Heart sounds: S1 normal and S2 normal; negative rub or gallop GI GI: normal to inspection Neuro General: alert, awake, oriented x3 and CN's II-XI intact bilaterally Skin Skin: no rashes or lesions noted Extremities Pulses: Normal: Right Posterior Tibial Pulse, Left Posterior Tibial Pulse, Right Radial Pulse, Left Radial Pulse Lower Extremity Edema: None: Bilateral Psych Psychological: normal affect Supplemental Info Cardiac tilt table from April 2017 showed symptomology compatible with underlying vasovagal mediated activity, however, was considered negative for reproducible vasovagal/neurocardiogenic mediated near syncope/syncope. Stress echocardiogram from April 2017 showed estimated ejection fraction 55% and was considered negative. Event monitor from April 2017 showed sinus rhythm, sinus tachycardia, and occasional PACs/PVCs. Echocardiogram from February 2017 showed estimated ejection fraction of 60% and mild tricuspid regurgitation. Carotid duplex from November 2016 showed no significant plaque disease reported. Holter monitor from February 2017 shows sinus rhythm with rare PACs/PVCs and no sustained narrow or wide-complex runs. Symptoms of dizziness did not correlate with scan. Assessment AND Plan 1. Syncope and collapse R55 Plan Patient states that this is much improved since last office visit. Her cardiac tilt table was considered negative though she had symptoms compatible with underlying vasovagal mediated activity. Her stress echocardiogram from April 2017 was negative for stress-induced myocardial ischemia and showed an ejection fraction of 55%. Her event monitor from April 2017 showed sinus rhythm, sinus tachycardia, and occasional PACs/PVCs. At this time we will continue to monitor symptoms. She was reminded to maintain adequate hydration, avoid standing in one location for prolonged periods, and wear compression stockings. She was instructed to contact our office if chest pain, shortness of breath, or syncope worsen or change. 2. Chest pain, unspecified type R07.9 Plan Patient's stress echocardiogram from April 2017 was negative for stress-induced myocardial ischemia and showed ejection fraction 55%. Patient's chest pain appears to be atypical. We will continue to monitor this. She was instructed to contact our office if she notices any changing chest pain especially exertional related. Orders Orders: 3. Pure hypercholesterolemia E78.00; E78.0 Plan This is being managed by primary care physician. She will continue with current cholesterol-lowering medication. Plan Detail Additional Comments Thank you for allowing us to participate in the patients plan of care, if you have any questions please do not hesitate to call. This note was generated using a voice recognition system and there may be incorrect words, spelling or punctuation that were not noted when reviewing the office note prior to saving. Follow Up 11 Months (PFM ) Coding Level of Care Code Off vis,est,level 3 Diagnoses Syncope and collapse R55 Chest pain, unspecified type R07.9 Chest pain type: unspecified Pure hypercholesterolemia E78.00; E78.0 Hyperlipidemia type: pure hypercholesterolemia Coding Level of Care Code Off vis,est,level 3 Diagnoses Syncope and collapse R55 Chest pain, unspecified type R07.9 Chest pain type: unspecified Pure hypercholesterolemia E78.00; E78.0 Hyperlipidemia type: pure hypercholesterolemia 10/16/17 1305 <Electronically signed by Kiran HENRY> Date Kiran HENRY Cosigner Signature: Date (if applicable) CC: Juan Lares Start: 10-16-2017 End: 10-16-2017 12 Lead EKG performed by [facility] Comments: See Note; NOTES: [facility] [address] [place] [address] 12 Lead EKG performed by [facility] 10/16/17 1042 MR#: [id number] Acct: [id number] Name: MARGOT HUTCHISON Rep #: [id number] : 1965 52 From: Kiran Alonzo PRODUCTION SUPPLY EQUIPMENT TENDER-C Attending Dr: Kiran Alonzo, PRODUCTION SUPPLY EQUIPMENT TENDER Status: DEP AMB Ordering Dr: Kiran Alonzo PRODUCTION SUPPLY EQUIPMENT TENDERWendyC Date: 10/16/17 Location: [facility] Sex: F C Admitted: [facility]/12 Lead EKG performed by [facility] Sinus Tachycardia Voltage criteria for LVH (R(aVF) exceeds 1.50 mV). With ight axis -consider combined ventricular hypertrophy. -Diffuse ST epression Negative T-waves -Seen with biventricular hypertrophy strain) -consider acute process. ABNORMAL 10/16/17 1545 <Electronically signed by Kiran Alonzo PRODUCTION SUPPLY EQUIPMENT TENDER-C> Date Kiran Alonzo PRODUCTION SUPPLY EQUIPMENT TENDERWendyC CC: Juan Chan DO Date Dictated: 10/16/172 Date Transcribed: 10/16/17 104 Jet Dyeing Machine Operator: DARELL Signed Juan Chan Start: 09-10-2017 End: 09-10-2017 Discharge Instruction Comments: See Note; NOTES: [facility] Medical Records Department [address] [place] [address] Discharge Instruction 09/10/17 1453 MR#: [id number] Acct: [id number] Name: MARGOT HUTCHISON Rep #: [id number] : 1965 52 From: Jewel Blanco MD PCP: Juan Chan DO Status: DEP ER ED Disposition - Plan for ED Patient: Disposition: Home or Assisted Living Chief Complaint: Fall Instructions: ED Contusion Nasal Vs Fx No X Ray Referrals: Juan Chan DO [Primary Care Provider] - As Needed Additional Instructions: Clinically of a nasal fracture. Ice. Tylenol Motrin for pain and swelling. You may develop black and blue eyes. Direct pressure pinching your nose to stop any bleeding. Return if unable to get the bleeding stopped. You can also use Suleiman-Synephrine or Afrin nasal splint to help control the bleeding. What to do if you have Problems For any increased pain, shortness of breath, bleeding, nausea or vomiting, chest pain, or any unexpected problems, contact your Primary Care Provider. Call [facility] ([phone]) or report to the closest Emergency Room. Call 911 if necessary. 09/10/17 1800 <Electronically signed by Jewel Blanco MD> Date Jewel Blanco MD Cosigner Signature (If Indicated): Date CC: Juan Lares Start: 09-10-2017 End: 09-10-2017 Emergency Department Summary Comments: See Note; NOTES: [facility] Medical Records Department [address] [place] [address] Emergency Department Summary 09/10/17 1449 MR#: [id number] Acct: [id number] Name: MARGOT HUTCHISON Rep #: [id number] : 1965 52 From: Jewel Blanco MD PCP: Juan Chan DO Status: [facility] ER - ER Visit Summary Date of Service: 09/10/17 Chief Complaint: Fall and nasal injury History of Present Illness: The patient is a 52 F past medical history of depression, anxiety and chronic pain. States she tripped and fell and landed on the bumper of the truck at home. She struck her nose. Had bleeding. Denies any LOC. Denies any head injury otherwise. She is not on blood thinners. She believes she may have broken her nose. She denies any neck pain. Or any other injuries. She has not had any vomiting or severe headache. Physical Examination: Appearing middle-aged female. Vital signs are stable afebrile. She does not look septic or toxic. She is in no acute distress. Pulse ox is 98% on room air no signs of hypoxia. H EENT exam is nasal bridge tenderness with swelling. And dried blood in both nares. There is currently no active bleeding. No bleeding down the posterior pharynx. No obvious dental injuries. No malocclusion. No chipped teeth. He does not have any otherwise significant facial tenderness or swelling. The orbits are unremarkable. Given dry reactive light extra motions are intact. Scalp is nontender. C-spine nontender normal range of motion. Trachea midline. Lungs clear to auscultation bilaterally. Heart regular rate and rhythm no murmur. Chest wall nontender. Abdomen soft nontender. Pelvic girdle intact. She is moving all 4 extremities. They are nontender. Normal range of motion. Bilateral equal symmetrical 5 out of 5 cash posting clerk strength. Dorsi plantar flexion intact. Back exam nontender. Neurologic exam is normal. NIH is 0. GCS of 15. Test Results: None Emergency Department Course and Treatment: Patient fell and has clinically a nasal fracture. Swollen and tender. There is dried blood but no active bleeding. She is comfortable not getting any x-rays. I offered her Suleiman-Synephrine soaked cotton balls but she deferred at this time and said she will just ice her nose down at home. I gave him instructions that if he restarts bleeding what to do. Treatment Plan: Ice. Tylenol Motrin for pain. Return if recurrent bleeding and unable to stop. Disposition: Discharge Impression: Acute fall with nasal fracture Nosebleed secondary to trauma resolved This note was generated with [employer] dictation software. It may contain incorrect words, spelling, and punctuation that were not noted in review of the chart prior to signing ED Disposition - Plan for ED Patient: Chief Complaint: Fall Referrals: Juan Chan, DO [Primary Care Provider] - What to do if you have Problems For any increased pain, shortness of breath, bleeding, nausea or vomiting, chest pain, or any unexpected problems, contact your Primary Care Provider. Call [facility] ([phone]) or report to the closest Emergency Room. Call 911 if necessary. 09/10/17 1800 <Electronically signed by Jewel Blanco MD> Date Jewel Blanco MD Cosigner Signature (If Indicated): Date CC: Juan Lares Start: 05-27-2017 End: 05-27-2017 Tilt Table Comments: See Note; NOTES: [facility] Cardiovascular Services [address] [place] [address] 05/27/172036 MR#: [id number] Acct: [id number] Name: MARGOT HUTCHISON Rep #: [id number] : 1965 52 From: Moe Gonzales MD Attending Dr: Moe Gonzales MD Status: REG CLI Ordering Dr: Date: 05/27/17 Location: [facility] Sex: F C Admitted: - Staff Staff: Sakshi Anderson, - - Chasity Torres - Summary Pre Test Resting HR: 75 - Alert and oriented: Warm and dry Pre Test Resting BP: 148/88 - Alert and oriented: Warm and dry Minimum Test HR: 88 - Alert and oriented: Warm and dry Maximum Test HR: 122 - Alert and oriented: Warm and dry Minimum Test BP: 101/59 - Alert and oriented: Warm and dry Maximum Test BP: 140/77 - Alert and oriented: Warm and dry Reason for Test Termination: Reached Maximum Test Time Physician Tilt Table Report - Patient's Physicians Primary Care Physician: Juan Chan Construction Supervisor/Carpenter: Moe Gonzales Indications/Diagnosis: Near syncope / syncope Procedure Comments: The patient presented to the tilt table laboratory alert and oriented and warm and dry. The baseline heart rate was 75 bpm with a baseline blood pressure 148/88 mmHg. The cardiac rhythm was sinus rhythm. The patient was placed in the 70 upright tilt table position for approximately 20 minutes. The patient remained alert and oriented. Near completion of this procedure the patient was noted to have cool hands . The patient was noted to have a minimal heart rate of 88 bpm with a minimal blood pressure of 121/78 mmHg and a maximal heart rate of 100 bpm with a maximal blood pressure of 140/77 mmHg. The cardiac rhythm remains sinus rhythm. The patient reported feeling cool hands . The patient did not lose consciousness. The patient was returned to the supine position. The patient was administered nitroglycerin 0.4 mg sublingual 1. The patient was returned to the 70 upright tilt table position for approximately 6 minutes. During this time the patient remained alert and oriented and warm and dry. The minimal heart rate was 96 bpm with a minimal blood pressure of 101/59 mmHg with a maximal heart rate of 122 bpm and a maximal blood pressure 134/70 mmHg. The patient remained in sinus rhythm. The patient reported feeling lightheaded, nauseated, and warm. The patient did not lose consciousness. The patient was returned to the supine position. The patient was monitored in the supine position for approximately 10 minutes. The patient remained alert and oriented and warm and dry. The concluding heart rate was 97 bpm with a concluding blood pressure 150/72 mmHg. The patient continued in sinus rhythm. The patient was taking oral intake well and had no complaints. The patient was subsequently released from the tilt table laboratory. Summary: 70 upright tilt table study pre-and post nitroglycerin sublingual challenge noted for symptomatology compatible with underlying vasovagal mediated activity, however, considered negative for reproducible vasovagal/neurocardiogenic mediated near syncope/syncope. 05/27/172044 <Electronically signed by Moe Gonzales MD> Date Moe Gonzales MD CC: Juan Chan DO; Moe Gonzales MD Date Dictated: 05/27/172036 Date Transcribed: 05/27/172036 Jet Dyeing Machine Operator: PM Signed Juna Chan Start: 05-13-2017 End: 05-13-2017 Stress Test Echo w/ Contrast Comments: See Note; NOTES: [facility] Cardiovascular Services [address] [place] [address] Stress Test Echo W/Contrast MR#: [id number] Acct: [id number] Name: MARGOT HUTCHISON Rep #: [id number] : 1965 52 From: Moe Gonzales MD Primary Care: Juan Chan DO Status: REG CLI Ordering Dr: Moe Gonzales MD Sex: F C Reason For Study: SYNCOPE, CHEST PAIN Stress Results Protocol: Stress Echocardiogram Maximum Predicted HR: 167 bpm Target HR: 142 bpm% Maximum Pr edicted HR: 98 % DurationHeart Rate Stage (mm:ss) (bpm) BPCom ment BASELINE 89 152/90 4CC DILUTED DEFINITY USED DURING STRESS AMILCAR PROTOCOL- STAGE 1 3:00 12 5 172/72 AMILCAR PROTOCOL- STAGE 2 3:00 15 0 186/60SOB AMILCAR PROTOCOL- STAGE 3 1:46 16 4 / SOB , LEGS TIRED RECOVERY 100 160/8 0 Stress Duration: 7:46 mm:ss Maximum Stress HR: 164 bpmM ETS: 10 Baseline Echocardiogram Findings Stress Echo Wall motion Data Resting WMIntermediate WMStress WM Resting Wall Motion Wall Motion Stress All segments Normal. All segments Hyperkinetic. Ejection Fraction 55 %. Ejection Fraction 70 %. Stress Results Heart rate response: appropriate Blood pressure response: resting hypertension - appropriate response Arrhythmias: occasional PAC pretest; rare PVC during exericse and recovery Functional capacity: average Stopped secondary to: dyspnea. EKG Data Baseline ECG: NSR. Peak exercise ECG: somatic / motion artifact with no obvious ECG changes. Symptoms with Stress No c/o chest discomfort during exercise / recovery. Interpretation Summary Negative (adequate) Stress Echocardiogram Ordering Physician: Moe Gonzales MD Referring Physician: Juan Chan M.D. Performed By: Lizzie Perry, RDCS, RVT 05/13/171756 Date Moe Gonzales MD CC: Juan Chan DO; Moe Gonzales MD Date Dictated: 05/13/17 1315 Date Transcribed: 05/13/171756 Jet Dyeing Machine Operator: Signed Moe Gonzales Work Phone: Start: 03-07-2017 End: 03-07-2017 Echocardiogram Complete Comments: See Note; NOTES: [facility] Cardiovascular Services [address] [place] [address] Echo Complete 03/07/17 1114 MR#: [id number] Acct: [id number] Name: MARGOT HUTCHISON Rep #: [id number] : 1965 52 From: Harjinder Groves MD Attending Dr: Juan Chan DO Status: REG CLI Ordering Dr: Juan Chan DO Date: 03/07/17 Location: [facility] Sex: F C Admitted: Reason For Study: syncope/collapse Procedure This was a 2D Doppler, Color Flow transthoracic echocardiogram. The study was technically difficult. PT had difficulty lying still for exam. Exam performed in department. Left Ventricle Normal LV size. Left ventricular systolic function is normal. The estimated ejection fraction is 60 %. No regional wall motion abnormalities noted. Right Ventricle Normal RV size. Normal systolic function. Atria Normal left atrium. Normal right atrium. Mitral Valve Normal mitral valve. Tricuspid Valve Normal tricuspid valve. Mild tricuspid valve insufficiency. Pulmonic Valve Normal pulmonic valve. Great Vessels Normal aortic root. The pulmonary artery is normal size. Normal inferior vena cava. Pericardium/Pleural No pericardial effusion. MMode/2D Measurements AND Calculations LVIDd: 4.2 cm IVSd: 1.1 cm Ao root diam: 2.8 cm LVIDs: 2.8 cm LVPWd: 1.1 cm LA dimension: 3.5 cm RVDd: 2.5 cm FS: 33.7 % LAV(MOD-bp): 39.3 ml LA A4 area: 13.6 cm2 RA A4 area: 10.9 cm2 LAV(MOD-bp) Indexed: 20.4 ml/m2 LAV(MOD-sp2): 46.2 ml LAV(MOD-sp4): 32.8 ml Doppler Measurements AND Calculations MV E max luiz: 44.8 cm/sec Lat Peak E' Luiz: 10.9 cm/sec Med Peak E' Luiz: 6.5 cm/sec MV A max luiz: 63.1 cm/sec E/E' lat: 4.1 E/E' med: 6.9 MV E/A: 0.71 Ao V2 max: 98.9 cm/sec LV V1 max: 81.5 cm/sec TR max luiz: 209.2 cm/sec Ao max P.0 mmHg LV V1 max P.7 mmHg TR max P.5 mmHg Interpretation Summary Normal LV size. Left ventricular systolic function is normal. The estimated ejection fraction is 60 %. Mild tricuspid valve insufficiency. Ordering Physician: Juan Chan Performed By: Nereida Johnson RDCS, RVT 03/07/17 1720 Date Harjinder Groves MD CC: Juan Chan DO Date Dictated: 03/07/17 1114 Date Transcribed: 03/07/17 1720 Jet Dyeing Machine Operator: Signed Juan Jodie Work Phone: Start: 12-06-2016 End: 12-06-2016 Carotid Duplex Ultrasound Comments: See Note; NOTES: [facility] Cardiovascular Services [address] [place] [address] Carotid Duplex Ultrasound 12/05/16 1239 MR#: [id number] Acct: [id number] Name: MARGOT HUTCHISON Rep #: [id number] : 1965 51 From: Gabriel Marquez MD Attending Dr: Terry Conrad Status: REG CLI Ordering Dr: Terry Conrad MD Date: 12/05/16 Location: [facility] Sex: F C Admitted: Reason For Study: SYNCOPE Rt. Velocities/BP Lt. Velocities/BP Prox CCA 69.2/17.6 cm/sec. Prox CCA 95.6/25.8 cm/sec. Mid CCA 80.3/22.9 cm/sec. Mid CCA 86.8/25.2 cm/sec. Dist CCA 73.9/25.2 cm/sec. Dist CCA 83.8/29.9 cm/sec. Prox ICA 76.8/28.7 cm/sec. Prox ICA 76.2/27.0 cm/sec. Mid ICA 88.0/28.2 cm/sec. Mid ICA 96.2/43.4 cm/sec. Dist ICA 82.7/37.5 cm/sec. Dist ICA 91.6/35.8 cm/sec. Rt. ICA/CCA = 1.1. Lt. ICA/CCA = 1.1. Prox ECA 97.9/19.9 cm/sec. Prox ECA 116.0/25.9 cm/sec. Rt. Vert. 66.8/29.3 cm/sec. Lt. Vert. 49.2/15.2 cm/sec. Right Extracranial There is no significant atherosclerotic plaque noted in the right common carotid artery. There is no significant atherosclerotic plaque noted in the right internal carotid artery. There is no significant atherosclerotic plaque noted in the right external carotid artery. Antegrade flow is noted in the right vertebral artery. Left Extracranial There is no significant atherosclerotic plaque noted in the left common carotid artery. There is no significant atherosclerotic plaque noted in the left internal carotid artery. There is no significant atherosclerotic plaque noted in the left external carotid artery. Antegrade flow is noted in the left vertebral artery. Procedure Carotid Duplex 44045. Exam performed in department. Interpretation Summary No significant atherosclerotic plaque or stenosis noted in the internal carotid arteries bilaterally. Flow within the vertebral arteries is antegrade bilaterally. Ordering Physician: Terry Conrad Referring Physician: Juan Chan M.D. Performed By: Nargis Espinosa RVT 12/06/1638 Date Gabriel Marquez MD CC: Terry Conrad; Juan Chan DO Date Dictated: 12/05/16 1239 Date Transcribed: 12/06/16 0738 Jet Dyeing Machine Operator: Signed Juan Chan Start: 03-15-2016 End: 03-15-2016 Emergency Department Summary Comments: See Note; NOTES: [facility] Medical Records Department [address] [place] [address] Emergency Department Summary MR#: [id number] Acct: [id number] Name: MARGOT HUTCHISON Rep #: [id number] : 1965 51 From: Jewel Blanco MD PCP: Juan Chan DO Status: [facility] DATE OF SERVICE: 03/15/2016 CHIEF COMPLAINT: Right eye injury. HISTORY OF PRESENT ILLNESS: This is a 51-year-old female who has had prior LASIK surgery of her eyes. Today, she was using basically ____ the fiberglass juanpablo and it actually stuck her in the right eye, hit her right lower eyelid and the lateral eye itself. Says it feels like as an injury to her eye. She has had increased watering. Before that, she said her eyes were doing fine. She does not wear glasses or contacts. PHYSICAL EXAMINATION: GENERAL: She is a middle-aged white female. VITAL SIGNS: Stable. Afebrile. HEENT: Visual acuity is pending. Pupils round, reactive to light. Extraocular motions are intact. She does have mild swelling to her right lower lid and a skin abrasion on the right lower lid. On the right lateral part, conjunctiva of her right eye, there is obviously subconjunctival hemorrhage and appears to be there has been trauma. Pupils round, reactive to light. There is no irregular pupil or lens injury noted. Extraocular motions are intact. There is no palsy or entrapment. Fluorescein was instilled in the right eye and tetracaine and a slit-lamp examination was performed, shows the right subconjunctival hemorrhage and also a corneal abrasion. The pupil and iris itself did not appear to be involved and again there is swelling of the right lower lid, but she is able to open and close the eye without any difficulty. No foreign bodies were noted. No globe penetration was seen or suspected. IMPRESSION: 1. Right eye direct trauma. 2. Right subconjunctival hemorrhage. 3. Abrasion, right lateral conjunctiva. PLAN: Bacitracin ophthalmic ointment, Motrin for pain, ice and follow up with ophthalmology on Friday. Dr. Coral Haq is sourcing consultant for ophthalmology. MD Bing Cosby C: Juan Guardado: MIGUEL JOB: [id number] 03/15/16 1549 <Electronically signed by Jewel Blanco MD> Date Jewel Blanco MD Cosigner Signature (If Indicated): Date CC: Juan Chan DO; Coral Haq Date Dictated: 03/15/16 1323 Date Transcribed: 03/15/161322 Jet Dyeing Machine Operator: Signed Juan Chan Start: 03-15-2016 End: 03-15-2016 Discharge Instruction Comments: See Note; NOTES: [facility] Medical Records Department [address] [place] [address] Discharge Instruction 03/15/16 1308 MR#: [id number] Acct: [id number] Name: MARGOT HUTCHISON Rep #: [id number] : 1965 51 From: Jewel Blanco MD PCP: Juan Chan DO Status: DEP ER ED Disposition - Plan for ED Patient: Disposition: Home or Assisted Living Chief Complaint: Eye Problem Instructions: ED Subconjunctival Hemorrhage, ED Corneal Abrasion Referrals: Coral Haq MD [STAFF PHYSICIAN] - 3-5 Days Additional Instructions: COOL COMPRESSES TO LEFT EYE MOTRIN FOR PAIN EYE OINTMENT TWICE A DAY FOR 3-5 DAYS FOLLOW UP WITH THE EYE DR TO BE RECHECKED What to do if you have Problems For any increased pain, shortness of breath, bleeding, nausea or vomiting, chest pain, or any unexpected problems, contact your doctor. Call [facility] ([phone]) or report to the closest Emergency Room. Call 911 if necessary. 03/15/16 1343 <Electronically signed by Jewel Blanco MD> Date Jewel Blanco MD Cosigner Signature (If Indicated): Date CC: Juan Lares Start: 09-17-2015 End: 09-17-2015 Emergency Department Summary Comments: See Note; NOTES: [facility] Medical Records Department [address] [place] [address] Emergency Department Summary MR#: [id number] Acct: [id number] Name: MARGOT HUTCHISON Rep #: [id number] : 1965 50 From: Terry Larose MD PCP: Juan Chan DO Status: DEP ER DATE OF SERVICE: 09/14/2015 CHIEF COMPLAINT: Left shoulder and left hand pain. HISTORY OF PRESENT ILLNESS: The patient fell off her horse today about an hour prior to arrival and is now having persistent discomfort in the left shoulder area, her left fifth digit. She stated that she has some bruises on her legs. She states she was fairly high up about 8 feet and landed on that side, so she drove herself here. She is on chronic back pain, Percocet medications through Dr. Gallegos. Did not hit her head, did not have a helmet on. Does not have neck pain, back pain. PHYSICAL EXAMINATION: VITAL SIGNS: On exam, vital signs stable. HEENT: Normal. No sign of head or face trauma. LUNGS: No chest wall discomfort. Lungs were clear. HEART: Regular with normal S1, S2. ABDOMEN: Soft. No pain on palpation. Good bowel sounds. EXTREMITIES: Her left shoulder has a vague, diffuse tenderness to the round of the shoulder, posterior humerus almost the entire length ____ without bony tenderness around the AC joint, clavicle. Little bit of suprascapular tenderness on the left. Her left fifth digit is tender at the MCP ____ digit that same left side, but motor, sensory, vascular intact, slight swelling. No crepitus, deformity. NEUROLOGIC: She is alert, oriented x3. GCS is 15. Cranial nerves II through XII intact. Normal strength, sensation, cerebellar function and good affect. TREATMENT: The patient was driving, so medications were held. Her left humerus, 2-view and left hand, 3-views, all showed no acute process other than the hand had some soft tissue swelling. She was placed in krish splints of the fourth and fifth digits and she can use those as tolerate, change as needed. I spoke with Dr. Gallegos. He is comfortable with 12 more Percocets to add to her usual prescriptions, to hold her over a few days. Ice to sore areas often. Recheck sooner for any new injuries, head injury, neck pain, worse arm, chest pain, nausea, vomiting, abdominal pain. Follow up with either Dr. Chan or Dr. Gallegos, which are appropriate in 5-7 days. The patient is stable, agreeable with discharge, voiced understanding. DIAGNOSES: 1. Fall off horse 8 hours prior to arrival with acute left shoulder and hand contusions. 2. Left fifth metacarpophalangeal sprain. Terry Larose MD C C: Jewel Chan DO T: NTS JOB: [id number] 09/17/15 0851 <Electronically signed by Terry Larose MD> Date Terry Larose MD Cosigner Signature (If Indicated): Date CC: Jewel Gallegos; Juan Chan DO Date Dictated: 09/14/151712 Date Transcribed: 09/14/151712 Jet Dyeing Machine Operator: Signed Juan Chan Start: 09-14-2015 End: 09-14-2015 Discharge Instruction Comments: See Note; NOTES: [facility] Medical Records Department [address] [place] [address] Discharge Instruction 09/14/15 1039 MR#: [id number] Acct: [id number] Name: MARGOT HUTCHISON Rep #: [id number] : 1965 50 From: Terry Larose MD PCP: Juan Chan DO Status: REG ER ED Disposition - Plan for ED Patient: Chief Complaint: Upper Extremity Injury Instructions: ED Shoulder Contusion, ED Sprain Finger Prescriptions: Oxycodone HCl/Acetaminophen [Percocet 5/325] 1 - 2 tablet PO Q6H PRN PRN #12 tablet PRN Reason: Pain Referrals: Juan Chan DO [Primary Care Provider] - 3-5 Days What to do if you have Problems For any increased pain, shortness of breath, bleeding, nausea or vomiting, chest pain, or any unexpected problems, contact your doctor. Call [facility] ([phone]) or report to the closest Emergency Room. Call 911 if necessary. 09/14/15 1041 <Electronically signed by Terry Larose MD> Date Terry Larose MD Cosigner Signature (If Indicated): Date CC: Juan Lares Start: 09-14-2015 End: 09-14-2015 Hand Min 3 Views Comments: See Note; NOTES: [facility] Imaging Services [address] [place] [address] [place] 4d Hand Min 3 Views MR#: [id number] Acct: [id number] Name: MARGOT HUTCHISON Rep #: [id number] : 1965 F 50 From: Prasanna Espinoza MD PCP: Juan Chan DO Status: REG ER Study: Hand Min 3 Views Date of Exam: 09/14/15 Exam# [id number] Ordering Dr: Terry Larose MD STUDY: X-RAY - LEFT HAND REASON FOR EXAM: Female, 50 years old. Pain and swelling overlying the fifth digit following a hyperextension injury. TECHNIQUE: 3 view(s) of the hand. COMPARISON: None. FINDINGS: Normal visualized carpal bones and carpal articulations. Normal carpometacarpal articulation of the thumb. Normal second through fifth carpometacarpal joints. Normal metacarpi. Normal metacarpophalangeal (MCP) joints. Normal visualized phalanges and interphalangeal joints. Soft tissue swelling. IMPRESSION: Soft tissue swelling. Electronically Signed: Prasanna Espinoza MD at 9:58 EDT Tel [phone], Service support [phone], RAD/Hand Min 3 Views IMPRESSION: Soft tissue swelling. Electronically Signed: Prasanna Espinoza MD at 9:58 EDT Tel [phone], Service support [phone], CC: Terry Larose MD; Juan Chan DO Jet Dyeing Machine Operator: Signed Juan Chan Start: 09-14-2015 End: 09-14-2015 Humerus min 2 Views Comments: See Note; NOTES: [facility] Imaging Services [address] [place] [address] [place] 4d Humerus min 2 Views MR#: [id number] Acct: [id number] Name: MARGOT HUTCHISON Rep #: [id number] : 1965 F 50 From: Prasanna Espinoza MD PCP: Juan Chan DO Status: REG ER Study: Humerus min 2 Views Date of Exam: 09/14/15 Exam# [id number] Ordering Dr: Terry Larose MD STUDY: X-RAY - LEFT HUMERUS REASON FOR EXAM: Female, 50 years old. Pain and limited range of motion following a fall. TECHNIQUE: 3 view(s) of the humerus. COMPARISON: None. FINDINGS: Normal visualized humerus. There is no demonstrated fracture or osseous destructive process. There is no demonstrated soft tissue abnormality. IMPRESSION: Normal x-ray examination of the humerus. Electronically Signed: Prasanna Espinoza MD at 9:59 EDT Tel [phone], Service support [phone], RAD/Humerus min 2 Views IMPRESSION: Normal x-ray examination of the humerus. Electronically Signed: Prasanna Espinoza MD at 9:59 EDT Tel [phone], Service support [phone], CC: Terry Larose MD; Juan Chan DO Jet Dyeing Machine Operator: Signed Juan Chan Start: 12-27-2014 End: 12-27-2014 Brain W/WO Contrast Comments: See Note; NOTES: [facility] Imaging Services [address] [place] [address] MRI Report MR#: [id number] Acct: [id number] Name: MARGOT HUTCHISON Rep #: [id number] : 1965 F 49 From: Mio Newton PCP: Juan Chan DO Status: REG CLI Study: Brain W/WO Contrast Date of Exam: 12/27/14 Exam# [id number] Ordering Dr: Eduin Avelar MD STUDY: MRI BRAIN WITH AND WITHOUT CONTRAST REASON FOR EXAM: Female, 49 years old. Dizziness TECHNIQUE: Standardized multiplanar fat and water weighted pulse sequences were obtained. 7 ml of Gadavist contrast material was administered intravenously for the contrast portion of the examination. COMPARISON: None. FINDINGS: Normal size of the ventricles and extra-axial spaces for the patient's age. Normal white matter tracts of the supratentorial brain. Normal bilateral basal ganglia. Normal thalami. There is no extra-axial fluid accumulation. Normal flow voids within the major intracranial circulation suggesting patency by spin echo criteria. Normal venous enhancement. There is no enhancing intra-axial or extra-axial abnormality. Normal sella turcica, pituitary gland, infundibular stalk, optic chiasm and hypothalamus. Normal tectal plate and pineal gland. Normal midbrain, carlos and medulla. Normal cerebellum. Normal basal cisterns. Normal bilateral temporal bones. Normal bilateral internal auditory canals. No demonstrated orbital abnormality, within the constraints of a routine brain study. Normal visualized paranasal sinuses. Normal calvarium and skull base. Normal visualized soft tissue structures. Normal visualized upper cervical spine. IMPRESSION: Unremarkable unenhanced and enhanced MRI of the brain. Electronically Signed: Mio Newton MD at 10:26 EDT Tel , Service support [phone], STUDY: MRI BRAIN WITH AND WITHOUT CONTRAST (ATTENTION INTERNAL AUDITORY CANALS - I.A.C.'s) REASON FOR EXAM: Female, 49 years old. Dizziness TECHNIQUE: Standardized multiplanar fat and water weighted pulse sequences were obtained. 7 ml of Gadavist contrast material was administered intravenously for the contrast portion of the examination. COMPARISON: None. FINDINGS: Normal bilateral temporal bones. Normal bilateral internal auditory canals. There is no demonstrated intracanalicular or cisternal vestibular schwannoma (acoustic neuroma). There is no enhancement of the bilateral VIIth or VIIIth cranial nerves. Normal bilateral cochlea, vestibules and semicircular canals. Normal size of the ventricles and extra-axial spaces for the patient's age. Normal white matter tracts of the supratentorial brain. Normal bilateral basal ganglia. Normal thalami. Normal flow voids within the major intracranial circulation suggesting patency by spin echo criteria. Normal venous enhancement. There is no enhancing intra-axial or extra-axial abnormality. There is no extra-axial fluid accumulation. Normal sella turcica, pituitary gland, infundibular stalk, optic chiasm and hypothalamus. Normal tectal plate and pineal gland. Normal midbrain, carlos and medulla. Normal cerebellum. Normal basal cisterns. No demonstrated orbital abnormality, within the constraints of a routine brain study. Normal visualized paranasal sinuses. Normal calvarium and skull base. Normal visualized soft tissue structures. Normal visualized upper cervical spine. IMPRESSION: Unremarkable unenhanced and enhanced MRI of the bilateral internal auditory canals (I.A.C's). Electronically Signed: Mio Newton MD at 10:27 EDT Tel , Service support [phone], CC: Juan Chan DO; Eduin Avelar MD Jet Dyeing Machine Operator: Signed Juan Chan Start: 06-30-2010 End: 06-30-2010 Cervical Fusion Ruby Gravius Start: 06-30-2010 End: 06-30-2010 Kayela Keith REFORESTATION WORKER Start: 03-20-2007 Lipid 1996 panel - Serum or Plasma Lizbet Reyes II, OD Work Phone: Start: 06-30-1979 End: 06-30-1979 Hysterectomy Ruby Gravius Arthrodesis of foot NEVILLE K KORPI DO Comment on above: BILATERAL Biopsy of breast Ruby Grav ius Comment on above: lumpectomy Biopsy of breast Pearl Saida ucheon Comment on above: lumpectomy Biopsy of breast Radha Cros s Comment on above: lumpectomy Biopsy of breast Radha Cros s Comment on above: lumpectomy Biopsy of breast Toyin Andrae barrera RETAIL BRANCH MANAGER Comment on above: lumpectomy Biopsy of breast Ruby Grav ius REFORESTATION WORKER Comment on above: lumpectomy Biopsy of breast Ruby Grav ius REFORESTATION WORKER Comment on above: lumpectomy Biopsy of breast Kayela Radf ord REFORESTATION WORKER Comment on above: lumpectomy Biopsy of breast Kayela Radf ord REFORESTATION WORKER Biopsy of breast Kayela Radf ord REFORESTATION WORKER Biopsy of breast Hannah Amber mitchell MA Breast Biopsy - Left Ruby Gravius Comment on above: lumpectomy Breast Biopsy - Left Radha Knapp Comment on above: lumpectomy Breast Biopsy - Left Violeta walker Comment on above: lumpectomy Breast Biopsy - Left Ruby Gravius Comment on above: lumpectomy Breast Biopsy - Left Ruby Gravius REFORESTATION WORKER Comment on above: lumpectomy Carpal Tunnel Surger y - Both Ruby Gravius Carpal Tunnel Surger y - Both Radha Knapp Carpal Tunnel Surger y - Both Violeta Pak Carpal Tunnel Surger y - Both Ruby Gravius Carpal Tunnel Surger y - Both Ruby Gravius REFORESTATION WORKER Cervical arthrodesis FREDERI CK KORPI DO Colonoscopy MYRNA KORPI DO Decompression of median nerve Ruby Gravius Decompression of median nerve Pearl Rueda Decompression of median nerve Radha Hanson Decompression of median nerve Radha Hanson Decompression of median nerve Toyin Woods LPN Decompression of median nerve Ruby Gravius REFORESTATION WORKER Decompression of median nerve Ruby Gravius REFORESTATION WORKER Decompression of median nerve Kayela Mcleod REFORESTATION WORKER Decompression of median nerve Kayela Keith REFORESTATION WORKER Decompression of median nerve Kayela Mcleod REFORESTATION WORKER Decompression of median nerve Hannah Andersen MA Decompression of median nerve MYRNA KORPI DO Comment on above: BILATERAL Excision of lumbar intervertebral disc MYRNA KORPI DO Extraction of wisdom tooth MYRNA KORPI DO Foot Surgery - Both Ruby rabago Comment on above: bilateral fusion of both great toes Foot Surgery - Both Radha Knapp Comment on above: bilateral fusion of both great toes Foot Surgery - Both Violeta thomas Comment on above: bilateral fusion of both great toes Foot Surgery - Both Ruby rabaog Comment on above: bilateral fusion of both great toes Foot Surgery - Both Ruby G gem REFORESTATION WORKER Comment on above: bilateral fusion of both great toes H/O: hysterectomy H/O: hysterectomy H/O: surgery History of surgi jania removal of ganglion cyst History of laser assisted in situ keratomileusis Hx of RAJEEV Reyes OD Work Phone: Hysterectomy MYRNA KORPI DO Laminectomy Ruby Gravius Comment on above: 2 surgeries L5-S1 2004, 2012 Laminectomy Radha Knapp Comment on above: 2 surgeries L5-S1 2004, 2012 Laminectomy Violeta Pak Comment on above: 2 surgeries L5-S1 2004, 2012 Laminectomy Ruby Wild Comment on above: 2 surgeries L5-S1 2004, 2012 Laminectomy Pearl mitchell Comment on above: 2 surgeries L5-S1 2004, 2012 Laminectomy Radha Hanson Comment on above: 2 surgeries L5-S1 2004, 2012 Laminectomy Radha Cross Comment on above: 2 surgeries L5-S1 2004, 2012 Laminectomy Toyin Peggy L PN Comment on above: 2 surgeries L5-S1 2004, 2012 Laminectomy Ruby Gravius REFORESTATION WORKER Comment on above: 2 surgeries L5-S1 2004, 2012 Laminectomy Ruby Gravius REFORESTATION WORKER Comment on above: 2 surgeries L5-S1 2004, 2012 Laminectomy Ruby Gravius REFORESTATION WORKER Comment on above: 2 surgeries L5-S1 2004, 2012 Laminectomy Kayela Mcleod REFORESTATION WORKER Comment on above: 2 surgeries L5-S1 2004, 2012 Laminectomy Kayela Mcleod REFORESTATION WORKER Laminectomy Kayela Keith REFORESTATION WORKER Laminectomy Hannah Andersen MA Lumpectomy of left breast MYRNA GEMMAPI DO Operative procedure on foot Ruby Gravius Comment on above: bilateral fusion of both great toes Operative procedure on foot Pearl Mohit Comment on above: bilateral fusion of both great toes Operative procedure on foot Radha Cross Comment on above: bilateral fusion of both great toes Operative procedure on foot Radha Cross Comment on above: bilateral fusion of both great toes Operative procedure on foot Toyin Peggy RETAIL BRANCH MANAGER Comment on above: bilateral fusion of both great toes Operative procedure on foot Ruby Gravius REFORESTATION WORKER Comment on above: bilateral fusion of both great toes Operative procedure on foot Ruby Gravius REFORESTATION WORKER Comment on above: bilateral fusion of both great toes Operative procedure on foot Kayela Mcleod REFORESTATION WORKER Comment on above: bilateral fusion of both great toes Operative procedure on foot Kayela Mcleod REFORESTATION WORKER Operative procedure on foot Kayela Mcleod REFORESTATION WORKER Operative procedure on foot Hannah Andersen MA Primary laminectomy excision of lumbar intervertebral disc MYRNA GEMMAPI DO Plan of Treatment Date Care Activity Detail Author Start: 02-05-2039 RSV Vaccine (1 - 1-dose 75+ series) RSV Vaccine (1 - 1-dose 75+ series) [facility] Start: 07-15-2027 Diabetes Screening Diabetes Screening [facility] Start: 12-08-2025 End: 12-08-2025 Patient encounter procedure 12/08/2025 8:50 AM EDT Office Visit [facility] [address] [place] [address] Rodríguez Vick MD [address] [place] [address] [facility] Start: 11-03-2025 End: 11-03-2025 Patient encounter procedure 11/03/2025 8:30 AM EDT Appointment [facility] [address] [place] [address] Rodríguez Vick MD [address] [place] [address] Start: 11-02-2025 End: 11-25-2025 Comprehensive metabolic 1998 panel - Serum or Plasma Comprehensive metabolic panel Lab Routine Malignant neoplasm of right kidney (HCC) Expected: 11/02/2025 (Approximate), Expires: 11/25/2025 [facility] Comment on above: Expected: 11/02/2025 (Approximate), Expi res: 11/25/2025 Start: 11-02-2025 End: 11-25-2025 CT Abdomen W contrast IV CT abdomen w IV contrast Imaging Routine Malignant neoplasm of right kidney (HCC) Expected: 11/02/2025, Expires: 11/25/2025 [facility] Work Phone: Comment on above: Expected: 11/02/2025, Expires: Start: 11-02-2025 End: 11-25-2025 XR Chest 2 Views XR chest 2 views Imaging Routine Malignant neoplasm of right kidney (HCC) Expected: 11/02/2025, Expires: 11/25/2025 [facility] Comment on above: Expected: 11/02/2025, Expires: Start: 10-18-2025 Diabetes: Estimated Glomerular Filtration Rate for Kidney Health Diabetes: Estimated Glomerular Filtration Rate for Kidney Health [facility] Start: 07-15-2025 Diabetes: Estimated Glomerular Filtration Rate for Kidney Health Diabetes: Estimated Glomerular Filtration Rate for Kidney Health [facility] Start: 04-29-2025 Diabetes: Estimated Glomerular Filtration Rate for Kidney Health Diabetes: Estimated Glomerular Filtration Rate for Kidney Health [facility] Start: 02-28-2025 Influenza vaccination Influenza Vaccine (Season Ended) [facility] Start: 02-24-2025 End: 02-24-2025 Patient encounter procedure 02/24/2025 11:00 AM EDT Office Visit [facility] [address] [place] [address] CoreySaida haasn Roxanne II, OD [address] [place] [address] contact exam/[facility] Comment on above: contact exam/[facility]emed Start: 12-03-2024 End: 12-03-2024 Patient encounter procedure [facility] Start: 11-25-2024 End: 11-25-2025 XR Chest 2 Views XR chest 2 views Imaging Routine Malignant neoplasm of right kidney (HCC) Expected: 11/25/2024, Expires: 11/25/2025 [facility] Comment on above: Expected: 11/25/2024, Expires: Start: 11-15-2024 Anes dx/ther nerve block/injection prone pos ANESTH N BLOCK/INJ PRONE [facility] Start: 11-15-2024 Njx dx/ther sbst intrlmnr lmbr/sac w/img gdn NJX INTERLAMINAR LMBR/SAC [facility] Start: 11-15-2024 Fluoroscopy guided injection of cervical spinal nerve root [facility] Start: 11-15-2024 Injection using fluoroscopic guidance [facility] Start: 11-15-2024 Patient discharge [facility] Start: 10-28-2024 End: 10-28-2024 Patient encounter procedure 10/28/2024 10:50 AM EDT Office Visit [facility] [address] [place] [phone] Rodríguez Vick MD [address] [place] [address] [facility] Start: 10-27-2024 End: 07-29-2025 Comprehensive metabolic 1998 panel - Serum or Plasma Comprehensive metabolic panel Lab Routine Malignant neoplasm of right kidney (HCC) Expected: 10/27/2024 (Approximate), Expires: 07/29/2025 [facility] Comment on above: Expected: 10/27/2024 (Approximate), Expi res: 07/29/2025 Start: 10-27-2024 End: 07-29-2025 CT Abdomen W contrast IV CT abdomen w IV contrast Imaging Routine Malignant neoplasm of right kidney (HCC) Expected: 10/27/2024, Expires: 07/29/2025 [facility] Work Phone: Comment on above: Expected: 10/27/2024, Expires: Start: 10-27-2024 End: 07-29-2025 XR Chest 2 Views XR chest 2 views Imaging Routine Malignant neoplasm of right kidney (HCC) Expected: 10/27/2024, Expires: 07/29/2025 [facility] Comment on above: Expected: 10/27/2024, Expires: Start: 10-21-2024 End: 10-21-2024 Patient encounter procedure 10/21/2024 9:30 AM EDT Office Visit [facility] [address] [place] [phone] Rodríguez Vick MD [address] [place], [place] [id number] [facility] Start: 10-20-2024 End: 10-20-2024 Patient encounter procedure 10/20/2024 8:00 AM EDT Office Visit [facility] [address] [place] [address] Lizbet Reyes II, OD [address] [place] [address] 1 week follow up/[facility] Comment on above: 1 week follow up/[facility] Start: 10-18-2024 End: 10-18-2024 Patient encounter procedure 10/18/2024 10:45 AM EDT Appointment [facility] [address] [place] [address] Rodríguez Vick MD [address] [place] [address] [facility] [address] Start: 10-06-2024 End: 10-06-2024 Patient encounter procedure 10/06/2024 11:30 AM EDT Office Visit [facility] [address] [place] [phone] Shruthi Caldera TRAINING AND DEVELOPMENT SPECIALIST - PARCEL POST OFFICER [address] [place] [address] [facility] Start: 07-29-2024 End: 07-29-2024 Patient encounter procedure 07/29/2024 1:50 PM EST Office Visit [facility] [address] [facility] [address] [place] [phone] Rodríguez Vick MD [address] [facility] [address] [place] [address] [facility] Start: 07-28-2024 End: 07-28-2024 Patient encounter procedure 07/28/2024 9:00 AM EST Office Visit [facility] [address] [facility] [address] [place] [phone] Shruthi Caldera TRAINING AND DEVELOPMENT SPECIALIST - PARCEL POST OFFICER [address] [facility] [address] [place] [address] [facility] Start: 07-14-2024 End: 07-14-2024 Admission to same day surgery center 07/14/2024 7:00 AM EST - 07/14/2024 10:00 AM EST Surgery [facility] MA[facility] OR [address] [place] [phone] Rodríguez Vick MD [address] [facility] [address] [place] [address] ROBOTIC RIGHT PARTIAL NEPHRECTOMY, POSSIBLE RADICAL NEPHRECTOMY [33770 (CPT )] [facility] Comment on above: ROBOTIC RIGHT PARTIAL NEPHRECTOMY, POSSI BLE RADICAL NEPHRECTOMY [89183 (CPT )] Start: 07-14-2024 End: 07-14-2024 Laparoscopy surg partial nephrectomy ROBOTIC (XI) LAPAROSCOPIC PARTIAL NEPHRECTOMY Cyst of kidney, acquired 07/14/2024 7:00 AM EST [facility] Start: 07-14-2024 Subsequent hospital visit by physician 07/14/2024 7:00 AM EST Hospital Encounter [facility] [address] [place] [phone] Rodríguez Vick MD [address] [place] [address] [facility] Start: 07-07-2024 End: 07-07-2024 Admission to establishment 07/07/2024 8:00 AM EST Pre-Admission Testing [facility] Pre-Admit Testing [address] [place] [phone] [facility] Pre-Admit [facility] Start: 05-24-2024 End: 05-24-2024 Patient encounter procedure 05/24/2024 9:00 AM EST Office Visit [facility] [address] [place] [address] Shruthi Caldera APRN - ANGEL [address] [place] [address] [facility] Start: 05-18-2024 End: 05-18-2024 Telemedicine consultation with patient 05/18/2024 12:00 PM EST Telemedicine [facility] [address] [place] [phone] Rodríguez Vick MD [address] [place] [address] [facility] Start: 05-10-2024 Subsequent hospital visit by physician 05/10/2024 1:00 PM EST Hospital Encounter [facility] [address] [place] [phone] Rodríguez Vick MD [address] [place] [address] [facility] Start: 04-29-2024 End: 04-29-2025 Comprehensive metabolic 1998 panel - Serum or Plasma Comprehensive metabolic panel Lab Routine Renal mass, right Expected: 04/29/2024 (Approximate), Expires: 04/29/2025 [facility] Comment on above: Expected: 04/29/2024 (Approximate), Expi res: 04/29/2025 Start: 04-29-2024 End: 04-29-2025 MR Abdomen WO and W contrast IV MR abdomen w and wo contrast Imaging STAT Renal mass, right Expected: 04/29/2024, Expires: 04/29/2025 [facility] Work Phone: Comment on above: Expected: 04/29/2024, Expires: Start: 04-29-2024 End: 04-29-2024 Patient encounter procedure 04/29/2024 11:00 AM EDT Office Visit [facility] [address] [facility] [address] [place] [phone] Rodríguez Vick MD [address] [place] [address] [facility] Start: 03-09-2024 End: 03-09-2024 Patient encounter procedure 03/09/2024 9:30 AM EDT Office Visit [facility] [address] [place] [phone] Shruthi Caldera, TRAINING AND DEVELOPMENT SPECIALIST - PARCEL POST OFFICER [address] [place], [place] [id number] [facility] Start: 02-29-2024 COVID-19 Vaccine ( season) COVID-19 Vaccine ( season) [facility] Start: 02-29-2024 COVID-19 Vaccine ( season) COVID-19 Vaccine ( season) [facility] Start: 02-29-2024 Influenza vaccination Influenza Vaccine (#1) [facility] Start: 2024 RSV Immunization aged 60 or older (1 - 1-dose 60+ series) RSV Immunization aged 60 or older (1 - 1-dose 60+ series) [facility] Start: 2024 RSV Immunization for Adults (1 - Risk 60-74 years 1-dose series) RSV Immunization for Adults (1 - Risk 60-74 years 1-dose series) [facility] Start: 2024 RSV Vaccine (1 - 1-dose 60+ series) RSV Vaccine (1 - 1-dose 60+ series) [facility] Start: 11-05-2023 Hepatitis C antibody, confirmatory test DILATED RETINAL EXAM [facility] Start: 02-28-2023 Covid-19 Vaccine ( season) Covid-19 Vaccine ( season) [facility] Start: 02-28-2023 Influenza vaccination INFLUENZA (Season Ended) [facility] Start: 11-14-2022 Procedure Education [facility] Work Phone: Start: 11-14-2022 Provider Instructions for Treatment [facility]; [facility] Work Phone: Start: 10-03-2022 Shingrix Vaccine (2 of 3) Shingrix Vaccine (2 of 3) [facility] Start: 10-03-2022 Zoster Vaccines (2 of 3) Zoster Vaccines (2 of 3) [facility] Start: 09-27-2022 Hemoglobin glycosylated a1c [facility]; [facility] Work Phone: Comment on above: STANDING ORDER Start: 09-05-2022 MMR Vaccines (1 of 1 - Standard series) MMR Vaccines (1 of 1 - Standard series) [facility] Start: 08-28-2022 Hemoglobin glycosylated a1c [facility]; [facility] Work Phone: Comment on above: STANDING ORDER Start: 08-08-2022 Procedure Education [facility] Work Phone: Start: 08-08-2022 Provider Instructions for Treatment [facility]; [facility] Work Phone: Start: 08-08-2022 Cyanocobalamin vitamin b-12 [facility]; [facility] Work Phone: Start: 08-08-2022 25 hydroxy includes fractions if performed [facility]; [facility] Work Phone: Start: 08-08-2022 Assay of thyroid stimulating hormone tsh [facility]; [facility] Work Phone: Start: 08-08-2022 Urnls dip stick/tablet reagent auto microscopy [facility]; [facility] Work Phone: Start: 08-08-2022 Urine albumin quantitative [facility]; [facility] Work Phone: Start: 08-08-2022 Comprehensive metabolic panel [facility]; [facility] Work Phone: Start: 08-08-2022 Lipid panel [facility] Work Phone: Start: 08-08-2022 Blood count complete auto&auto difrntl wbc [facility]; [facility] Work Phone: Start: 07-29-2022 Hemoglobin glycosylated a1c [facility]; [facility] Work Phone: Comment on above: STANDING ORDER Start: 06-30-2022 DEPRESSION ASSESSMENT DEPRESSION ASSESSMENT [facility] Start: 06-29-2022 Hemoglobin glycosylated a1c [facility]; [facility] Work Phone: Comment on above: STANDING ORDER Start: 05-31-2022 Hepatitis C antibody, confirmatory test DILATED RETINAL EXAM [facility] Start: 05-30-2022 Hemoglobin glycosylated a1c [facility]; [facility] Work Phone: Comment on above: STANDING ORDER Start: 05-02-2022 Procedure Education [facility]; [facility] Work Phone: Start: 05-02-2022 Provider Instructions for Treatment [facility]; [facility] Work Phone: Start: 04-30-2022 Hemoglobin glycosylated a1c [facility]; [facility] Work Phone: Comment on above: STANDING ORDER Start: 04-11-2022 Procedure Education [facility]; [facility] Work Phone: Start: 03-31-2022 Hemoglobin glycosylated a1c [facility]; [facility] Work Phone: Comment on above: STANDING ORDER Start: 03-01-2022 Hemoglobin glycosylated a1c [facility]; [facility] Work Phone: Comment on above: STANDING ORDER Start: 02-28-2022 Influenza vaccination INFLUENZA (Season Ended) [facility] Start: 01-30-2022 Hemoglobin glycosylated a1c [facility]; [facility] Work Phone: Comment on above: STANDING ORDER Start: 01-25-2022 Procedure Education [facility]; [facility] Work Phone: Start: 01-25-2022 Provider Instructions for Treatment [facility]; [facility] Work Phone: Start: 01-25-2022 Hemoglobin glycosylated a1c HGB A1C (84316) [facility]; [facility] Work Phone: Start: 01-25-2022 25 hydroxy includes fractions if performed CALCIFIDIOL (73420) VIT D 25 [facility]; [facility] Work Phone: Start: 01-25-2022 Cyanocobalamin vitamin b-12 VITAMIN B-12 (CYANOCOBALAMIN) (78998) [facility]; [facility] Work Phone: Start: 01-25-2022 Assay of thyroid stimulating hormone tsh TSH (93407) [facility]; [facility] Work Phone: Start: 01-25-2022 Urnls dip stick/tablet reagent auto microscopy URINALYSIS, W/ MICRO (56567) [facility]; [facility] Work Phone: Start: 01-25-2022 Urine albumin quantitative MICROALBUMIN: CREATININE RATIO (24372) AND (92842) [facility]; [facility] Work Phone: Start: 01-25-2022 Comprehensive metabolic panel METABOLIC PANEL, COMPREHENSIVE (27509) [facility]; [facility] Work Phone: Start: 01-25-2022 Lipid panel LIPID PANEL (02125) [facility] Work Phone: Start: 01-25-2022 Blood count complete auto&auto difrntl wbc CBC W/AUTO DIFF WBC (79595) [facility]; [facility] Work Phone: Start: 12-31-2021 Hemoglobin glycosylated a1c [facility]; [facility] Work Phone: Comment on above: STANDING ORDER Start: 12-01-2021 Hemoglobin glycosylated a1c [facility]; [facility] Work Phone: Comment on above: STANDING ORDER Start: 11-01-2021 Hemoglobin glycosylated a1c HGB A1C (85119) [facility]; [facility] Work Phone: Comment on above: STANDING ORDER Start: 10-05-2021 Procedure Education [facility]; [facility] Work Phone: Start: 10-05-2021 Provider Instructions for Treatment [facility]; [facility] Work Phone: Start: 10-05-2021 Cyanocobalamin vitamin b-12 VITAMIN B-12 (CYANOCOBALAMIN) (90667) [facility]; [facility] Work Phone: Start: 06-07-2021 Procedure Education [facility]; [facility] Work Phone: Start: 06-07-2021 Provider Instructions for Treatment [facility]; [facility] Work Phone: Start: 06-07-2021 Cyanocobalamin vitamin b-12 VITAMIN B-12 (CYANOCOBALAMIN) (08714) [facility]; [facility] Work Phone: Start: 06-07-2021 25 hydroxy includes fractions if performed CALCIFIDIOL (93593) VIT D 25 [facility]; [facility] Work Phone: Start: 06-01-2021 Procedure Education [facility]; [facility] Work Phone: Start: 06-01-2021 Provider Instructions for Treatment [facility]; [facility] Work Phone: Start: 06-01-2021 Lipid panel [facility] Work Phone: Start: 06-01-2021 Hepatic function panel [facility] Work Phone: Start: 02-28-2021 Influenza vaccination INFLUENZA (#1) [facility] Start: 01-26-2021 Procedure Education [facility]; [facility] Work Phone: Start: 01-26-2021 Provider Instructions for Treatment [facility]; [facility] Work Phone: Start: 11-18-2020 HbA1c (Bld) [Mass fraction] HGB A1C (05022) [facility] Work Phone: Start: 11-18-2020 Hemoglobin glycosylated a1c HGB A1C (93989) [facility]; [facility] Work Phone: Start: 09-22-2020 Procedure Education [facility]; [facility] Work Phone: Start: 09-22-2020 Provider Instructions for Treatment [facility]; [facility] Work Phone: Start: 09-08-2020 Lipid panel [facility] Work Phone: Start: 07-21-2020 HbA1c (Bld) [Mass fraction] HGB A1C (53225) [facility] Work Phone: Start: 07-21-2020 Hemoglobin glycosylated a1c [facility]; [facility] Work Phone: Start: 07-11-2020 Hepatic function panel HEPATIC FUNCTION PANEL (56634) [facility]; [facility] Work Phone: Start: 06-21-2020 Procedure Education [facility]; [facility] Work Phone: Start: 06-21-2020 Provider Instructions for Treatment [facility]; [facility] Work Phone: Start: 06-21-2020 Hepatic function panel HEPATIC FUNCTION PANEL (57546) [facility]; [facility] Work Phone: Comment on above: do in 2weeks Start: 06-15-2020 Procedure Education [facility] Work Phone: Start: 06-15-2020 Provider Instructions for Treatment [facility]; [facility] Work Phone: Start: 03-23-2020 Procedure Education [facility] Work Phone: Start: 03-23-2020 Provider Instructions for Treatment [facility] Work Phone: Start: 03-23-2020 Lipoprotein blood lorenzo numbers & subclasses NMR Profile (18091) [facility] Work Phone: Start: 03-23-2020 Hepatic function panel HEPATIC FUNCTION PANEL (01124) [facility] Work Phone: Start: 03-23-2020 HbA1c (Bld) [Mass fraction] HGB A1C (32107) [facility] Work Phone: Comment on above: today Start: 12-08-2019 Procedure Education [facility] Work Phone: Start: 12-08-2019 Provider Instructions for Treatment [facility] Work Phone: Start: 12-08-2019 Lipoprotein blood lorenzo numbers & subclasses NMR Profile (42990) [facility] Work Phone: Start: 12-08-2019 Assay of thyroid stimulating hormone tsh TSH (32506) [facility] Work Phone: Start: 12-08-2019 Urnls dip stick/tablet reagent auto microscopy URINALYSIS, W/ MICRO (14395) [facility] Work Phone: Start: 12-08-2019 Urine albumin quantitative MICROALBUMIN: CREATININE RATIO (55910) AND (32800) [facility] Work Phone: Start: 12-08-2019 Comprehensive metabolic panel METABOLIC PANEL, COMPREHENSIVE (72376) [facility] Work Phone: Start: 12-08-2019 Blood count complete auto&auto difrntl wbc CBC W/AUTO DIFF WBC (14798) [facility] Work Phone: Start: 09-01-2019 Procedure Education [facility] Work Phone: Start: 09-01-2019 Provider Instructions for Treatment [facility] Work Phone: Start: 04-29-2019 Provider Instructions for Treatment [facility] Work Phone: Start: 04-29-2019 HbA1c (Bld) [Mass fraction] HgA1C , Office (75507) [facility] Work Phone: Start: 12-24-2018 Procedure Education [facility] Work Phone: Start: 12-24-2018 Provider Instructions for Treatment [facility] Work Phone: Start: 12-24-2018 Cobalamin (Vitamin B12) [Mass/Vol] VITAMIN B-12 (CYANOCOBALAMIN) (55697) [facility] Work Phone: Start: 12-24-2018 Cyanocobalamin vitamin b-12 [facility] Work Phone: Start: 12-24-2018 Lipoprotein blood lorenzo numbers & subclasses [facility] Work Phone: Start: 12-24-2018 Hepatic function panel [facility] Work Phone: Start: 11-02-2018 Blood count manual cell count each CBC WITH MANUAL DIFF (36255) [facility] Work Phone: Start: 11-02-2018 Comprehensive metabolic panel Metabolic Panel, Comprehensive (56139) [facility] Work Phone: Start: 11-02-2018 Urine albumin quantitative MICROALBUMIN: CREATININE RATIO (93454) AND (49120) [facility] Work Phone: Start: 11-02-2018 Urinalysis qual/semiquant except immunoassays URINALYSIS (86619) [facility] Work Phone: Start: 11-02-2018 Protein mass conc NMR Profile (29653) [facility] Work Phone: Start: 11-02-2018 Thyrotropin Qn TSH (80553) [facility] Work Phone: Start: 11-02-2018 Hemoglobin A1c/Hemoglobin.total mass fraction (Bld) HGB A1C (54550) [facility] Work Phone: Start: 05-14-2018 Hemoglobin A1c/Hemoglobin.total mass fraction (Bld) HGB A1C (20787) [facility] Work Phone: Start: 05-14-2018 Hemoglobin glycosylated a1c [facility] Work Phone: Start: 05-14-2018 Cobalamin (Vitamin B12) mass conc VITAMIN B-12 (CYANOCOBALAMIN) (77613) [facility] Work Phone: Start: 05-14-2018 Cyanocobalamin vitamin b-12 [facility] Work Phone: Start: 05-14-2018 Urnls dip stick/tablet reagent auto microscopy [facility] Work Phone: Start: 05-14-2018 Assay of thyroid stimulating hormone tsh [facility] Work Phone: Start: 05-14-2018 Thyrotropin Qn TSH (23132) [facility] Work Phone: Start: 05-14-2018 Urine albumin quantitative [facility] Work Phone: Start: 05-14-2018 Comprehensive metabolic panel [facility] Work Phone: Start: 05-14-2018 Lipoprotein blood lorenzo numbers & subclasses [facility] Work Phone: Start: 05-14-2018 Protein mass conc LIPOPROTEIN, BLD, BY NMR (05252) [facility] Work Phone: Start: 05-14-2018 Blood count complete auto&auto difrntl wbc [facility] Work Phone: Start: 05-14-2018 Procedure Education [facility] Work Phone: Start: 05-14-2018 Provider Instructions for Treatment [facility] Work Phone: Start: 05-13-2018 End: 05-13-2018 Appointment Appointment [facility] Work Phone: Start: 04-16-2018 Procedure Education [facility] Work Phone: Start: 04-16-2018 Provider Instructions for Treatment [facility] Work Phone: Start: 11-17-2017 Procedure Education [facility] Work Phone: Start: 11-03-2017 Provider Instructions for Treatment [facility] Work Phone: Start: 10-27-2017 Procedure Education [facility] Work Phone: Start: 10-27-2017 Provider Instructions for Treatment [facility] Work Phone: Start: 05-01-2017 End: 05-01-2017 Appointment Appointment [facility] Work Phone: Start: 03-06-2017 Provider Instructions for Treatment [facility] Work Phone: Start: 03-06-2017 Microsomal antibodies each [facility] Work Phone: Start: 03-06-2017 Assay of thyroid stimulating hormone tsh [facility] Work Phone: Start: 03-06-2017 Thyrotropin Qn TSH (67936) [facility] Work Phone: Start: 03-06-2017 Assay of free thyroxine [facility] Work Phone: Start: 03-06-2017 T4 free mass conc T4, FREE (THYROXINE) (20534) [facility] Work Phone: Start: 03-06-2017 Assay of triiodothyronine t3 free [facility] Work Phone: Start: 03-06-2017 T3 free mass conc T3, FREE (TRIDOTHYRONINE) (91786) [facility] Work Phone: Start: 03-06-2017 C-reactive protein [facility] Work Phone: Start: 03-06-2017 CRP mass conc C-REACTIVE PROTEIN (71543) [facility] Work Phone: Start: 03-06-2017 Cyclic citrullinated peptide antibody [facility] Work Phone: Start: 03-06-2017 Lipid panel [facility] Work Phone: Start: 03-06-2017 Cobalamin (Vitamin B12) mass conc VITAMIN B-12 (CYANOCOBALAMIN) (06832) [facility] Work Phone: Start: 03-06-2017 Cyanocobalamin vitamin b-12 [facility] Work Phone: Start: 10-09-2016 Procedure Education [facility] Work Phone: Start: 10-09-2016 Provider Instructions for Treatment [facility] Work Phone: Start: 04-28-2016 Diabetes Screening Diabetes Screening [facility] Start: 03-28-2016 Lipid panel [facility] Work Phone: Start: 03-28-2016 Hepatic function panel [facility] Work Phone: Start: 03-26-2016 Patient Education [facility] Work Phone: Start: 03-26-2016 Provider Instructions for Treatment [facility] Work Phone: Start: 02-15-2016 Skin test tuberculosis intradermal [facility] Work Phone: Comment on above: lot: [id number]: 10/18site/route: R del/I Damt: 0.1mLVIS signed when applicableWILMAR Allen Start: 06-21-2015 Hemoglobin A1c/Hemoglobin.total mass fraction (Bld) HgA1C , Office (21757) [facility] Work Phone: Start: 06-21-2015 Hemoglobin glycosylated a1c [facility] Work Phone: Start: 06-21-2015 Patient Education [facility] Work Phone: Start: 06-21-2015 Procedure Education [facility] Work Phone: Start: 06-21-2015 Provider Instructions for Treatment [facility] Work Phone: Start: 01-24-2015 Hemoglobin A1c/Hemoglobin.total mass fraction (Bld) HEMOGLOBIN GLYCLATED (HGB A1C) (90559) [facility] Work Phone: Start: 01-24-2015 Hemoglobin glycosylated a1c [facility] Work Phone: Start: 12-29-2014 Skin test tuberculosis intradermal [facility] Work Phone: Comment on above: lot:[id number]:16route:IDdose:0.1mlSit e:L forarmgiven by: Lanny Leggett CMA Start: 12-29-2014 Assay of triiodothyronine t3 free [facility] Work Phone: Comment on above: send copy to dr eduin avelar Start: 12-29-2014 T3 free mass conc T3, FREE (TRIDOTHYRONINE) (46440) [facility] Work Phone: Comment on above: send copy to dr eduin avelar Start: 12-29-2014 Assay of free thyroxine [facility] Work Phone: Comment on above: send copy to dr eduin avelar Start: 12-29-2014 T4 free mass conc T4, FREE (THYROXINE) (58039) [facility] Work Phone: Comment on above: send copy to dr eduin avelar Start: 12-29-2014 Assay of thyroid stimulating hormone tsh [facility] Work Phone: Comment on above: send copy to dr rosario bell Start: 12-29-2014 Thyrotropin Qn TSH (69462) [facility] Work Phone: Comment on above: send copy to dr rosario bell Start: 12-29-2014 Glucose mass conc GLUCOSE (61507) [facility] Work Phone: Start: 12-29-2014 Glucose quantitative blood xcpt reagent strip [facility] Work Phone: Start: 12-29-2014 Lipid panel [facility] Work Phone: Start: 11-14-2014 Provider Instructions for Treatment [facility] Work Phone: Start: 08-25-2014 Patient Education [facility] Work Phone: Start: 08-25-2014 Procedure Education [facility] Work Phone: Start: 08-25-2014 Provider Instructions for Treatment [facility] Work Phone: Start: 07-14-2014 Procedure Education [facility] Work Phone: Start: 07-04-2014 Procedure Education [facility] Work Phone: Start: 04-15-2014 Patient Education [facility] Work Phone: Start: 02-05-2014 Screening for malignant neoplasm of lung Lung Cancer Screening [facility] Start: 02-05-2014 SHINGRIX VACCINE (1 of 2) SHINGRIX VACCINE (1 of 2) [facility] Start: 09-29-2013 Patient Education [facility] Work Phone: Start: 09-29-2013 Skin test tuberculosis intradermal [facility] Work Phone: Comment on above: Lot:[id number]:04/13Dose:0.1mgRoute:idSit e:larmGiven By:NONA signed Start: 03-20-2012 Lipid panel Lipid Screening [facility] Start: 02-05-2009 COLOGUARD (FIT-DNA) COLOGUARD (FIT-DNA) [facility] Start: 02-05-2009 Colonoscopy COLONOSCOPY [facility] Start: 02-05-2009 COLORECTAL CANCER SCREENING COLORECTAL CANCER SCREENING [facility] Start: 02-05-[address] COLONOGRAPHY [facility] Start: 02-05-2009 FECAL OCCULT BLOOD FECAL OCCULT BLOOD [facility] Start: 02-05-2009 Screening for malignant neoplasm of colon [facility] Start: 02-05-2009 SIGMOIDOSCOPY SIGMOIDOSCOPY [facility] Start: 03-20-2008 Hepatitis B surface antibody level LDL CHOLESTEROL [facility] Start: 2004 Mammography MAMMOGRAM [facility] Start: 2004 Screening for malignant neoplasm of breast [facility] Start: 02-05-1994 HPV TESTING HPV TESTING [facility] Start: 02-05-1994 Screening for malignant neoplasm of cervix [facility] Start: 02-05-1985 PAP TESTING PAP TESTING [facility] Start: 02-05-1985 Screening for malignant neoplasm of cervix [facility] Start: 02-05-1983 DTaP/Tdap/Td Vaccines (1 - Tdap) DTaP/Tdap/Td Vaccines (1 - Tdap) [facility] Start: 02-05-1983 Pneumococcal Vaccine: 50+ (1 of 2 - PCV) Pneumococcal Vaccine: 50+ (1 of 2 - PCV) [facility] Start: 02-05-1983 Pneumococcal Vaccine: 50+ Years (1 of 2 - PCV) Pneumococcal Vaccine: 50+ Years (1 of 2 - PCV) [facility] Start: 02-05-1983 Urine microalbumin profile [facility] Start: 02-05-1982 ANNUAL PCP TEAM CHRONIC DISEASE VISIT ANNUAL PCP TEAM CHRONIC DISEASE VISIT [facility] Start: 02-05-1982 Anxiety Screening Anxiety Screening [facility] Start: 02-05-1982 Depression Screening Depression Screening [facility] Start: 02-05-1982 Diabetes mellitus screening Diabetes Screening [facility] Start: 02-05-1982 Diabetes: Estimated Glomerular Filtration Rate for Kidney Health Diabetes: Estimated Glomerular Filtration Rate for Kidney Health [facility] Start: 02-05-1982 Diabetes: Urine Albumin-Creatinine Ratio for Kidney [facility] Diabetes: Urine Albumin-Creatinine Ratio for Kidney Health [facility] Start: 02-05-1982 HEPATITIS C SCREENING HEPATITIS C SCREENING [facility] Start: 02-05-1982 Hepatitis C screening Hepatitis C Screening [facility] Start: 02-05-1982 HIV SCREENING HIV SCREENING [facility] Start: 02-05-1982 HIV screening HIV Screening [facility] Start: 1980 ONE PNEUMOVAX PRIOR TO AGE 65 ONE PNEUMOVAX PRIOR TO AGE 65 [facility] Start: 1976 Adult depression screening assessment DEPRESSION SCREENING [facility] Start: 1976 Depression Monitoring Depression Monitoring [facility] Start: 02-05-1974 3 comp foot exam completed DIABETIC FOOT EXAM [facility] Start: 02-05-1974 Diabetic foot examination Diabetes: Foot Exam [facility] Start: 02-05-1974 Glaucoma screening Diabetes: Retinopathy Screening [facility] Start: 02-05-1974 Hepatitis B screening URINE ALBUMIN:CREATININE RATIO [facility] Start: 02-05-1974 Preventive dental service Diabetes: Dental Exam [facility] Start: 02-05-1970 PNEUMOCOCCAL (1 - PCV) PNEUMOCOCCAL (1 - PCV) [facility] Start: 02-05-1970 Pneumococcal vaccination Pneumococcal Vaccine (1 of 2 - PCV) [facility] Start: 02-05-1970 Pneumococcal Vaccine: Pediatrics (0 to 5 Years) and At-Risk Patients (6 to 64 Years) (1 of 2 - PCV) Pneumococcal Vaccine: Pediatrics (0 to 5 Years) and At-Risk Patients (6 to 64 Years) (1 of 2 - PCV) [facility] Start: 02-05-1969 COVID-19 VACCINE (1) COVID-19 VACCINE (1) [facility] Start: 02-05-1969 Hemoglobin A1c/Hemoglobin.total in Blood HBA1C [facility] Start: 1965 COVID-19 VACCINE (#1) COVID-19 VACCINE (#1) [facility] Start: 1964 Hemoglobin A1c measurement Diabetes: Hemoglobin A1C [facility] Start: 1964 HEPATITIS B (1 of 3 - 3-dose series) HEPATITIS B (1 of 3 - 3-dose series) [facility] Start: 1965 HIV screening HIV Screening [facility] Start: 1964 Lipid panel Lipid Panel [facility] Start: 1964 Screening for malignant neoplasm of colon [facility] Patient referral [facility] Work Phone: [facility] Work Phone: [facility] Work Phone: [facility] Work Phone[facility] Work Phone: [facility] Work Phone: [facility] Work Phone: [facility] Work Phone: [facility] Work Phone: [facility] Work Phone: [facility] Work Phone: [facility] Work Phone: [facility] Work Phone: [facility] Work Phone: [facility] Work Phone: [facility] Work Phone: [facility] Work Phone: [facility] Work Phone: [facility]; [facility] Work Phone: [facility]; [facility] Work Phone: [facility]; [facility] Work Phone: [facility]; [facility] Work Phone: [facility] Work Phone: [facility]; [facility] Work Phone: [facility]; [facility] Work Phone: [facility]; [facility] Work Phone: [facility] Work Phone: [facility]; [facility] Work Phone: [facility] Work Phone: [facility]; [facility] Work Phone: [facility] Work Phone: [facility] Work Phone: [facility]; [facility] Work Phone: [facility]; [facility] Work Phone: [facility]; [facility] Work Phone: Immunizations Immunization Date Immunization Notes Care Provider Ghilsaine motta 08-08-2022 zoster vaccine recombinant Juan Chan DO Work Phone: [facility]; [facility] Work Phone: 08-08-2022 zoster vaccine, live Vladislav Chan DO Work Phone: [facility]; [facility] Work Phone: No information available. Bella Renato AT [facility] Work Phone: Payers Date Payer Category Payer Self-pay [id number] 2024 Unknown [id number] 2022 Commercial Managed C are - [facility] Member Subscriber Plan / Payer (Effective 2022-Present) Name: Margot Hutchison Relation to Subscriber: Spouse Name: STEPHANIE HUTCHISON Date of : 1965 Address: [address] [place] [address] [address] [place] [address] Payer ID: [id number] (NAIC) Type: Commercial Address: [address] [place] [address] [id number] 02-29-2020 Private Health Insurance [facility] CHOICE PLUS [id number] 02/29/2020-Present [phone] [place] [address] [id number] 02-29-2020 Private Health Insurance [id number] 02-29-2020 Unknown EYE CARE PLAN OF [employer] VISION [id number] 02/29/2020-Present [id number] [place] [address] Indemnity [id number] 02-29-2020 Private Health Insurance [id number] 02-29-2020 Unknown [id number] 08-09-2017 Unknown 06-30-2014 Unknown [id number] 06-30-2013 Unknown [id number] 1965 Unknown [id number] 1965 Unknown [id number] .627 1964 Unknown [id number] .627 1965 Unknown [id number] .627 1965 Unknown [id number] 2.16.840.1.462813.3.579.2 .627 1965 Unknown [id number] 2.16.840.1.135971.3.579.2 .627 1965 Unknown [id number] .627 1965 Unknown [id number] 2.16.840.1.039690.3.579.2 .716 1965 Unknown [id number] 2.16.840.1.360214.3.579.2 .651 Unknown [id number] 2.16.840.1.974742.3.579.2 .462 Unknown [id number] 2.16.840.1.269348.3.579.2 .462 Unknown [id number] 2.16.840.1.699221.3.579.2 .462 Unknown [id number] 2.16.840.1.923056.3.579.2 .462 Unknown [id number] 2.16.840.1.842187.3.579.2 .462 Unknown [id number] 2.16.840.1.408339.3.579.2 .462 Unknown [id number] 2.16.840.1.848289.3.579.2 .462 Unknown [id number] 2.16.840.1.816248.3.579.2 .462 Unknown [id number] 2.16.840.1.449526.3.579.2 .462 Unknown [id number] 2.16.840.1.488805.3.579.2 .462 Unknown [id number] 2.16.840.1.321032.3.579.2 .462 Unknown [id number] 2.16.840.1.012674.3.579.2 .462 Unknown [id number] 2.16.840.1.570470.3.579.2 .462 Unknown [id number] 2.16.840.1.149786.3.579.2 .462 Unknown [id number] .462 Social History Date Type Detail Facility Alcohol Use: Current every da y smoker [facility] Work Phone: Comment on above: social Start: 03-21-2020 End: 11-25-2024 Caffeine Use [facility] Work Phone: Comment on above: tea Tobacco use: Current every da y smoker. [facility] Work Phone: Alcohol Use: Alcohol Use: [facility] Work Phone: Comment on above: social Tobacco use: Tobacco use: [facility] Work Phone: Start: 03-21-2020 End: 01-12-2025 Tobacco smoking status KYIS Smokes tobacco daily [facility] Start: 02-05-1977 End: 02-05-2018 History of tobacco use Cigarette Smoker [facility] Start: 03-21-2020 End: 10-13-2024 Tobacco use and exposure Smokeless tobacco non-user [facility] Start: 09-25-2021 End: 10-13-2024 Alcohol intake Ex-drinker (finding) [facility] Start: 03-21-2020 End: 10-13-2024 Tobacco Comment less than a pack a day [facility] Start: 1965 Sex Assigned At Female [facility] Start: 09-14-2021 End: 10-18-2021 Exposure to SARS-CoV-2 (event) Not sure [facility] Start: 03-29-2021 End: 12-03-2022 Tobacco smoking status KYIS Unknown if ever smoked [facility] Start: 10-03-2018 Spouse/ Signif icant Other [facility] Start: 11-06-2022 End: 11-25-2024 Tobacco use panel [facility] National Score (1-100), lower number is lower risk 72 [facility] Start: 10-25-2020 Gender identity Identifies as female gender (finding) [facility] Start: 03-04-2023 End: 11-25-2024 Alcoholic beverage intake Current non-drinker of alcohol (finding) [facility] Start: 1965 Sex assigned at Not on file [facility] Tobacco smoking status [facility] Start: 04-05-2024 End: 07-06-2024 Tobacco smoking status Heavy tobacco smoker (finding) [facility] Start: 05-24-2019 End: 01-29-2022 Sex Female (finding) [facility] Start: 07-15-2024 Tobacco smoking status NHIS Ex-smoker [facility] Start: 02-05-1977 End: 02-05-2018 History of tobacco use Current smoker [facility] History of tobacco use Passive smoker [facility] Start: 07-15-2024 Tobacco use and exposure User of smokeless tobacco [facility] Start: 07-15-2024 Tobacco Comment 07/14/24 Kayode guardado said she started smoking at age 12. She regularly smoked ~1 ppd at age 15. She quit for ~3 years, but vaped for 1 year then quit all until 2020 when she started back up, ~1 ppd. She wants quit, but no quit date set. [facility]za NEGATED: Highlighted rowStart: 05-13-2018 End: 05-13-2018 Assertion Current every day smoker [facility] Work Phone: NEGATED: Highlighted rowStart: 05-13-2018 End: 05-13-2018 Tobacco use and exposure SMOK ADVICE Yes [facility] Work Phone: NEGATED: Highlighted row Not [facility] Medical Equipment Procedure Code Equipment Code Equipment Origin al Text Equipment Identifier Dates Ankle Open Reduc tion Internal Fixation Unknown 04/06/24 Unknown Unknown FDA Start: 04-06-2024 Ankle Open Reduc tion Internal Fixation Unknown 04/06/24 Unknown Unknown FDA Start: 04-06-2024 Ankle Open Reduc tion Internal Fixation Unknown 04/06/24 Unknown Unknown FDA Start: 04-06-2024 Ankle Open Reduc tion Internal Fixation Unknown 04/06/24 Unknown Unknown FDA Start: 04-06-2024 Ankle Open Reduc tion Internal Fixation Unknown 04/06/24 Unknown Unknown FDA Start: 04-06-2024 Goals Date Patient Goal Desired Activity /State Functional Status Date Assessment Result Facility 04-06-2024 Functional Status elevated on pi llows, ice on [facility] 04-06-2024 Functional Status Repositions self [facility] 04-05-2024 Functional Status Sensory Defici ts None [facility] 03-22-2024 Functional Status Room check performed [facility] 03-22-2024 Functional Status [facility] 03-22-2024 Functional Status Mod I [facility] 03-22-2024 Functional Status Done [facility] 03-22-2024 Functional Status Living Situati on Lives with spouse [facility] 03-22-2024 Functional Status [facility] 03-22-2024 Functional Status 7pm-7am [facility] 03-22-2024 Functional Status Sequential Compression Device bilateral knee high applied/on [facility] 03-21-2024 Functional Status [facility] 03-21-2024 Functional Status [facility] 03-21-2024 Functional Status [facility] 03-21-2024 Functional Status Front wheeled walker [facility] 03-21-2024 Functional Status [facility] 03-20-2024 Functional Status Preventative Dressing Location coccyx [facility] 03-20-2024 Functional Status Maximum assistance [facility] 03-20-2024 Functional Status [facility] 03-20-2024 Functional Status [facility] 03-20-2024 Functional Status [facility] 03-20-2024 Functional Status Sensory Defici ts None [facility] 06-14-2020 LP-IR Score <25 [facility]; [facility] Work Phone: Comment on above: INSULIN RESISTANCE MARKER <--Insulin Sen sitive Insulin Resistant--> Percentile in Reference PopulationInsulin Resistance ScoreLP-IR Score Low 25th 50th 75th High <27 27 45 63 >63LP-IR Score is inaccurate if patient is non-fasting. .The LP-IR score is a laboratory developed index that has beenassociated with insulin resistance and diabetes risk and should beused as one component of a physician's clinical assessment. Test(s) 395025-WAY-D ; 222593-EZT-F; 598126-Ufgcjnnddyzzy; 385377-Rlijkqhoznx, Total; 469185-ASE-F (Total); 518245-Rvwuz LDL-P; 288972-IHR Size; 153424-RW-RZ Scorewas developed and its performance characteristics determinedby [employer]. It has not been cleared or approved by the Foodand Drug Administration.PATIENT WAS FASTINGPERFORMED BY: [facility] [address] [id number] BY: [facility] CenterCejawo8685 [facility] [id number] 03-14-2020 LP-IR Score <25 [facility] Work Phone: Comment on above: INSULIN RESISTANCE MARKER <--Insulin Sen sitive Insulin Resistant--> Percentile in Reference PopulationInsulin Resistance ScoreLP-IR Score Low 25th 50th 75th High <27 27 45 63 >63LP-IR Score is inaccurate if patient is non-fasting. .The LP-IR score is a laboratory developed index that has beenassociated with insulin resistance and diabetes risk and should beused as one component of a physician's clinical assessment. Test(s) 691824-SJI-K ; 948610-RWD-L; 146554-Wysercchgymcm; 899105-Ryjvdydwlqv, Total; 850895-GIA-G (Total); 652293-Wamjf LDL-P; 730765-QSG Size; 532722-YM-UE Scorewas developed and its performance characteristics determinedby [employer]. It has not been cleared or approved by the Foodand Drug Administration.PATIENT WAS FASTINGPERFORMED BY: [email or web address] [address] [id number] BY: [employer] Wthrsw3657 [facility] [id number] 09-01-2019 LP-IR Score <25 [facility] Work Phone: Comment on above: INSULIN RESISTANCE MARKER <--Insulin Sen sitive Insulin Resistant--> Percentile in Reference PopulationInsulin Resistance ScoreLP-IR Score Low 25th 50th 75th High <27 27 45 63 >63LP-IR Score is inaccurate if patient is non-fasting. .The LP-IR score is a laboratory developed index that has beenassociated with insulin resistance and diabetes risk and should beused as one component of a physician's clinical assessment. Test(s) 881879-WLJ-N ; 368874-MFT-K; 933321-QCZ-Z; 938042-Yjhtmpqeywhih; 992697-Axtnmtsbbsx, Total; 147957-OTZ-H (Total);334074-Rbqyw LDL-P; 567003-FUI Size; 889709-CH-MB Scorewas developed and its performance characteristics determinedby [employer]. It has not been cleared or approved by the Foodand Drug Administration.PATIENT WAS FASTINGPERFORMED BY: [email or web address] [address] [id number] BY: [facility] Kas[facility] HospitalPlfpjt3946 [facility] [id number] 12-17-2018 LP-IR Score <25 [facility] Work Phone: Comment on above: INSULIN RESISTANCE MARKER <--Insulin Sen sitive Insulin Resistant--> Percentile in Reference PopulationInsulin Resistance ScoreLP-IR Score Low 25th 50th 75th High <27 27 45 63 >63LP-IR Score is inaccurate if patient is non-fasting. .The LP-IR score is a laboratory developed index that has beenassociated with insulin resistance and diabetes risk and should beused as one component of a physician's clinical assessment. TheLP-IR score listed above has not been cleared by the [place] Food andDrug Administration. PATIENT WAS FASTINGP ERFORMED BY: BN [facility] [id number] [facility] [id number] BY: CB [facility] Gwwtyc4552 [facility] [id number] Mental Status Date Assessment Result Facility 11-15-2024 Cognitive function Voice/Name [facility] Work Phone: 04-06-2024 Mental Status Oriented x 4 [facility] 03-22-2024 Mental Status Oriented x 4 [facility] 03-21-2024 Mental Status [facility] 03-21-2024 Mental Status [facility] Clinical Notes 10-19-2020 to 12-16-2024 Rodríguez Vick MD - 11/25/2024 8:40 AM EDTPatient Lizbet Escamilla II, OD - 10/13/2024 10:03 AM EDTTelephone Encounter - Violeta Alvarez - 08/04/2024 10:14 AM EST Note Date & Type Note Facility 12-16-2024 Radiology Diagnostic study note [facility] Imaging Services [address] [place], [place] [address] Abdomen/Pelvis WITH Contrast MR#: [id number] Acct: [id number] Name: FOSTERMARGOT BROWNN Rep #: [id number] : 1965 F 59 From: Fanny Keller MD PCP: Dr. Juan Chan, DO Status: RE G CLI Study:Abdomen/Pelvis WITH Contrast Date of Ex am: 12/16/24 Exam# [id number] Ordering Dr: Valentine Chan DO PROCEDURE: ABDOMEN/PELVIS WITH CONTRAST 12/16/2024 REASON FOR EXAM: LUQ PAIN TECHNIQUE: ABDOMEN/PELVIS WITH CONTRAST. Coronal and Sagittal reconstruction series were provided. ORAL CONTRAST TYPE: Readi-Cat CONTRAST: Isovue 370 VOLUME: 98 mL One or more dose reduction techniques were used (e.g., Automated exposure control, adjustment of the mA and/or kV according to patient size, use of iterative reconstruction technique. RADIATION DOSE SUMMARY: CTDlvol: 75.00 mGy DLP: 2327.42 mGycm COMPARISON: CT abdomen and pelvis with IV contrast, 10/03/2018 FINDINGS: Lung bases: There is linear scarring in both lung bases. There are no pleural effusions. The heart size is normal. There is no pericardial effusion. There is no calcific vascular disease of the coronary arteries evident. Liver: Normal. Gallbladder: Normal. Spleen: Normal. Pancreas: Normal. Adrenals: Normal. Kidneys: There are 2 benign-appearing cortical cysts in the left kidney, 1 in the upper pole and 1 in the interpolar region. Bladder: Normal. Reproductive Organs: The uterus is surgically absent. The ovaries are not identified. There is no free fluid in the pelvis. There is no pelvic or inguinal lymphadenopathy. Bowel: There are few colonic diverticuli without evidence of acute inflammation. Appendix: Normal. Lymph nodes: There is no mesenteric or retroperitoneal lymphadenopathy. Vasculature: There is mild calcific vascular disease of the abdominal aorta. The inferior vena cava and portal venous system are normal. Peritoneum / Retroperitoneum: There are no intra or retroperitoneal masses or lymphadenopathy. There is a 6 mm in diameter umbilical hernia containing normal fat. Bones: There is multilevel degenerative disc disease of the lower thoracic and lumbar spine. There are large Schmorl's nodes at the superior endplates of T11, T12, L3 and L4. These were not present previously. There is also a compression fracture of the superior endplate of T12, not present previously. CT/Abdomen/Pelvis WITH Contrast IMPRESSION: 1. Colonic diverticulosis without diverticulitis. 2. Multiple Schmorl's nodes which have developed since the prior exam. 3. There is a compression fracture of the superior endplate of T12 which was not present previously. 4. Other findings as noted. Reading Location: [id number] CC: Dr. Juan Chan, DO ~ Jet Dyeing Machine Operator: Signed [facility] Work Phone: 12-16-2024 Radiology Diagnostic study note [facility] Imaging Services [address] [place] [address] CTA Chest W/WO Contrast MR#: [id number] Acct: [id number] Name: MARGOT HUTCHISON Rep #: [id number] : 1965 F 59 From: Fanny Keller MD PCP: Dr. Juan hCan DO Status: RE G CLI Study:CTA Chest W/WO Contrast Date of Exam: 12/16/24 Exam# [id number] Ordering Dr: Valentine Chan DO PROCEDURE: CTA CHEST W/WO CONTRAST 12/16/2024 REASON FOR EXAM: CTA CHEST WITH CONTRAST - RE-EVAL PE TECHNIQUE: CTA CHEST W/WO CONTRAST Multiplanar Sagittal and Coronal images were obtained. CONTRAST: Isovue 370 VOLUME: 98 mL One or more dose reduction techniques were used (e.g., Automated exposure control, adjustment of the mA and/or kV according to patient size, use of iterative reconstruction technique). RADIATION DOSE SUMMARY: CTDlvol: 67.60 mGy DLP: 2327.42 mGycm COMPARISON: CT low-dose lung screen, 01/07/2023 # of known CTs in the past 12 months: 0 # of known Cardiac Nuclear Medicine Studies in the past 12 months: 0 FINDINGS: Thoracic Aorta: There is minimal calcific vascular disease of the thoracic aorta. There is no evidence of thoracic aortic aneurysm or aortic dissection. Measurements (cm): Mid ascendin.7 cm Proximal descendin.1 cm Heart: The heart size is normal. There is no pericardial effusion. There is calcific vascular disease of the coronary arteries. Pulmonary Vessels: There is no evidence of pulmonary emboli. The main pulmonaryartery is normal in diameter. Lymph nodes: There is no mediastinal lymphadenopathy. There is a right hilar lymph node measuring 1.4 x 1.1 cm. Lungs and Airways: There are scattered air cyst bilaterally. There is linear scarring in the basilar segments of both lower lobes. There are no pulmonary nodules or masses. Pleura: There are no pleural effusions. Upper Abdomen: There is calcific vascular disease of the visualized abdominal aorta. Chest wall: The visualized soft tissues of the chest wall appear unremarkable. There is a large Schmorl's node in the superior endplate of T12 with an associated compression fracture which appears chronic, but has occurred since the prior exam. There is a large Schmorl's node in the superior endplate of T11. Status post anterior interbody fusion, C6-7. CT/CTA Chest W/WO Contrast IMPRESSION: 1. No evidence of pulmonary emboli. 2. Interval development of a compression fracture of the superior endplate of T12. 3. The lungs are unchanged. Reading Location: [id number] CC: Dr. Juan Chan, ~ Jet Dyeing Machine Operator: Signed [facility] Work Phone: 11-25-2024 History of Present illness Narrative Images from the original note were not included. Rodríguez Vick MD 11/25/2024 at 9:00 AM Office follow up PATIENT NAME: Margot Hutchison DATE OF : 1965 TODAY'S DATE: 11/25/2024 CHIEF COMPLAINT: Chief Complaint Patient presents with Renal Cancer Follow up Subjective: Ms. Hutchison is a 59 y.o. 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 Status post partial right nephrectomy with heterogeneity and irregularity of upper pole cortex. Small area of calcification is present here. No definite recurrent mass is seen in this background. 2. Two small cortical cysts left kidney, largest 2.2 cm. 3. Aortoiliac calcified plaquing, fatty infiltration liver, multilevel degenerative disc disease with chronic mild superior endplate depressions of T11, T12, L3, L4, mild probable interstitial scarring lung bases, prior right-sided laminectomy L5. Report Dictated on Electronically Signed By: Dov Rose MD Electronically Signed Date/Time: 10/18/2024 4:55 PM EDT Did not get CXR Review of Systems Denies respiratory difficulty Denies distress Medications Current Medications[1] Vitals: BP 133/72 Ht 5' 8.5 (1.74 m) Wt 184 lb (83.5 kg) BMI 27.57 kg/m Physical Exam Physical Exam No acute distress Normal respiratory effort LABS: No results found for: PSA No results found for: TESTOSTERONE Lab Results Component Value Date WBC 14.3 (H) 07/15/2024 HGB 12.9 07/15/2024 HCT 41.1 07/15/2024 MCV 86.9 07/15/2024 PLT 292 07/15/2024 Lab Results Component Value Date GLUCOSE 97 07/15/2024 CALCIUM 8.4 (L) 07/15/2024 NA 142 10/18/2024 K 3.8 10/18/2024 CO2 23 07/15/2024 CL 108 (H) 07/15/2024 BUN 14 07/15/2024 CREATININE 0.8 10/18/2024 No components found for: LABURIN @LASTPROCPOC@ Pathology: Radiology: Impression/Plan: Margot was seen today for renal cancer. Diagnoses and all orders for this visit: Malignant neoplasm of right kidney (HCC) (Primary) - CT abdomen w IV contrast; Future - XR chest 2 views; Future - Comprehensive metabolic panel; Future - Comprehensive metabolic panel - XR chest 2 views; Future CT, CXR and CMP CXR now as well Follow up in about 1 year (around 11/25/2025). Rodríguez Vick MD 11/25/24 9:00 AM [1] Current Outpatient Medications: amitriptyline (Elavil) 50 MG tablet, Take 50-100 mg by mouth Nightly., Disp: , Rfl: apixaban (Eliquis) 5 MG tablet, Take 1 tablet (5 mg) by mouth 2 times daily. Do not start before July 21, 2024., Disp: 60 tablet, Rfl: 0 Ascorbic Acid (VITAMIN C PO), Take by mouth., Disp: , Rfl: CALCIUM PO, Take by mouth., Disp: , Rfl: clonazePAM (KlonoPIN) 0.5 MG tablet, Take 0.5 mg by mouth daily., Disp: , Rfl: Cyanocobalamin (VITAMIN B 12 PO), Take by mouth., Disp: , Rfl: DULoxetine (Cymbalta) [address] capsule, Take 60 mg by mouth Nightly., Disp: , Rfl: meloxicam (Mobic) 15 MG tablet, Take 15 mg by mouth daily as needed., Disp: , Rfl: omeprazole (PriLOSEC) [address] capsule, Take 20 mg by mouth daily., Disp: , Rfl: orphenadrine (Norflex) 100 MG 12 hr tablet, Take 100 mg by mouth 2 times daily., Disp: , Rfl: oxyCODONE (Roxicodone) 5 MG immediate release tablet, Take 5 mg by mouth 3 times daily as needed., Disp: , Rfl: polyethylene glycol, PEG, 3350 (Miralax) 17 g packet, Take by mouth., Disp: , Rfl: rosuvastatin (Crestor) 40 MG tablet, Take 40 mg by mouth Nightly., Disp: , Rfl: solifenacin (VESIcare) 10 MG tablet, Take 10 mg by mouth daily., Disp: , Rfl: topiramate (Topamax) 25 MG tablet, Take 25 mg by mouth 2 times daily., Disp: , Rfl: traZODone (Desyrel) 300 MG tablet, Take 450 mg by mouth Nightly., Disp: , Rfl: VITAMIN D PO, Take by mouth., Disp: , Rfl: Vraylar 1.5 MG capsule, Take 1.5 mg by mouth daily., Disp: , Rfl: albuterol 108 (90 Base) MCG/ACT inhaler, Inhale 2 puffs every 4 hours as needed., Disp: , Rfl: primidone (Mysoline) 50 MG tablet, TAKE 3 TABLETS (150 MG) BY MOUTH 3 TIMES DAILY. (Patient not taking: Reported on 11/25/2024), Disp: 810 tablet, Rfl: 3 tiZANidine (Zanaflex) 4 MG tablet, TAKE 1 TABLET BY MOUTH THREE TIMES A DAY NEEDED FOR SPASMS, Disp: , Rfl: documented in this encounter [facility] 11-15-2024 Procedure note [facility] 11-15-2024 Consult note [facility] 11-03-2024 Radiology Diagnostic study note [facility] Imaging Services [address] [place] [address] L/S Spine Comp/w Bending Views MR#: [id number] Acct: [id number] Name: MARGOT HUTCHISON Rep #: [id number] : 1965 F 59 From: Ayaz Phillips MD PCP: Dr. Juan Chan DO Status: RE G CLI Study:L/S Spine Comp/w Bending Views Date of Exam: 11/02/24 Exam# [id number] Ordering Dr: Ashli Sloan PROCEDURE: L/S SPINE COMP/W BENDING VIEWS 11/02/2024 REASON FOR EXAM: LUMBAR DEGENERATIVE DISC DISEASE TECHNIQUE: 6 views; AP, lateral, flexion-extension and bilateral oblique COMPARISON: None available FINDINGS: 5 [id number] lumbar vertebral body types identified. Mild rightward thoracolumbar curvature, scoliosis. Concave endplate compression deformity superior endplate T12 with appearing moderate loss of height, L3 and L4 with appearance of mild loss of height. Age indeterminate. No malalignment. L2-3 moderate disc space narrowing L3-4 moderate disc space narrowing L4-5 moderate disc space narrowing with degenerative endplate changes L5-S1 spondylosis/discogenic change. Multilevel lower lumbar spine hypertrophic facet degenerative change No spondylolysis identified. No evidence of instability. RAD/L/S Spine Comp/w Bending Views IMPRESSION: Mild rightward thoracolumbar curvature, scoliosis. Concave endplate compression deformity superior endplate T12 with appearing moderate loss of height, L3 and L4 with appearance of mild loss of height. Age indeterminate. Multilevel spondylosis/discogenic changes above. Reading Location: [id number] CC: Ashli Sloan; Dr. Juan Chan, ~ Jet Dyeing Machine Operator: Signed [facility] 10-13-2024 Instructions Lizbet Reyes II, OD - 10/13/2024 10:04 AM EDT Assessment and Plan H53.8 Blurred vision, left eye (primary encounter diagnosis) Comment: Eye exam unremarkable. Recommend discontinue contact lens use and begin use of artificial tears 1 gt left eye four times a day. Recheck in 1 week. Instruct patient to immediately report any change in condition outside of expected and discussed symptoms. I have confirmed and edited as necessary the relevant HPI, ophthalmic history, ROS, and the neuro exam findings as obtained by others. I have seen and examined Margot Hutchison. I have discussed the case and the management of this patient's care with the Resident/Fellow, if applicable. I also have reviewed and agree with the assessment and plan as stated above and agree with all of its relevant components. documented in this encounter [facility] 10-13-2024 Note HNO ID: [id number] Author: LIZBET REYES II, OD Service: ? Author Type: MANUFACTURING QUALITY MANAGER Type: Progress Notes Filed: 10/13/2024 10:04 Note Text: Assessment and Plan H53.8 Blurred vision, left eye (primary encounter diagnosis) Comment: Eye exam unremarkable. Recommend discontinue contact lens use and begin use of artificial tears 1 gt left eye four times a day. Recheck in 1 week. Instruct patient to immediately report any change in condition outside of expected and discussed symptoms. I have confirmed and edited as necessary the relevant HPI, ophthalmic history, ROS, and the neuro exam findings as obtained by others. I have seen and examined Margot Hutchison. I have discussed the case and the management of this patient's care with the Resident/Fellow, if applicable. I also have reviewed and agree with the assessment and plan as stated above and agree with all of its relevant components. [facility] 10-13-2024 History of Present illness Narrative Assessment and Plan H53.8 Blurred vision, left eye (primary encounter diagnosis) Comment: Eye exam unremarkable. Recommend discontinue contact lens use and begin use of artificial tears 1 gt left eye four times a day. Recheck in 1 week. Instruct patient to immediately report any change in condition outside of expected and discussed symptoms. I have confirmed and edited as necessary the relevant HPI, ophthalmic history, ROS, and the neuro exam findings as obtained by others. I have seen and examined Margot Hutchison. I have discussed the case and the management of this patient's care with the Resident/Fellow, if applicable. I also have reviewed and agree with the assessment and plan as stated above and agree with all of its relevant components. documented in this encounter [facility] 10-13-2024 Note Date of Procedure 10/13/2024. Anthropologist Information Jig And Fixture Builder: eb. Start time: 8:47 AM. OCT Macula Interpretation Right Eye Normal foveal contour. Left Eye Normal foveal contour. Interval Change Right Eye Initial. Left Eye Initial. Notes Blurred vision left eye. No retinal cause identified. Monitor [facility] 10-13-2024 Note Date of Procedure 10/13/2024. Anthropologist Information Jig And Fixture Builder: eb. Start time: 8:55 AM. Poor reliability and fixation both eyes. Reliability Right Eye Poor. Left Eye Poor. Interpretation Right Eye Normal, Enlarged Blind Spot. Left Eye Normal. Interval Change Right Eye Initial. Left Eye Initial. Notes Testing unremarkable [facility] 08-04-2024 Telephone encounter Note Patient is scheduled Violeta Alvarez [facility] 08-04-2024 Miscellaneous Notes Patient is scheduled Violeta Alvarez Patient called the office because she realized that she forgot to schedule her follow up appt and had questions about her testing that needs done prior to that. The patient asked if she has to come all the way to [place] to have her imaging and bloodwork done. I advised her that [facility] could have those done in [facility] (closest to her) and that she could have her bloodwork done closer to her home but would need them to fax her results one week prior to her imaging. Patient's FU is scheduled for 10/21/[address] [place] [address] Vick and was transferred to Central Scheduling to have her CT and CXR scheduled. Appt reminder and Bloodwork order were mailed to patient. Patient left office after her visit without stopping at desk. Patient needs scheduled for testing and also she dropped of fmla while in back. tco Fmla with Violeta Alvarez documented in this encounter [facility] 07-30-2024 Telephone encounter Note Patient called the office because she realized that she forgot to schedule her follow up appt and had questions about her testing that needs done prior to that. The patient asked if she has to come all the way to [place] to have her imaging and bloodwork done. I advised her that [facility] could have those done in [facility] (closest to her) and that she could have her bloodwork done closer to her home but would need them to fax her results one week prior to her imaging. Patient's FU is scheduled for 10/21/[address] [place] [address] Vick and was transferred to Central Scheduling to have her CT and CXR scheduled. Appt reminder and Bloodwork order were mailed to patient. [facility] 07-30-2024 Miscellaneous Notes Patient called the office because she realized that she forgot to schedule her follow up appt and had questions about her testing that needs done prior to that. The patient asked if she has to come all the way to [place] to have her imaging and bloodwork done. I advised her that [facility] could have those done in [facility] (closest to her) and that she could have her bloodwork done closer to her home but would need them to fax her results one week prior to her imaging. Patient's FU is scheduled for 10/21/[address] [place] [address] Vick and was transferred to Central Scheduling to have her CT and CXR scheduled. Appt reminder and Bloodwork order were mailed to patient. Patient left office after her visit without stopping at desk. Patient needs scheduled for testing and also she dropped of fmla while in back. Lmtco Fmla with Violeta Alvarez documented in this encounter [facility] 07-29-2024 Telephone encounter Note Patient left office after her visit without stopping at desk. Patient needs scheduled for testing and also she dropped of fmla while in back. Lmtco Fmla with Violeta Alvarez [facility] 07-29-2024 History of Present illness Narrative Images from the original note were not included. Rodríguez Vick MD 07/29/2024 at 2:27 PM Office follow up PATIENT NAME: Margot Hutchison DATE OF : 1965 TODAY'S DATE: 07/29/2024 CHIEF COMPLAINT: Chief Complaint Patient presents with Follow Up After Procedure Path review Subjective: Ms. Hutchison is a 59 y.o. 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 Do not start before July 21, 2024., Disp: 60 tablet, Rfl: 0 Ascorbic Acid (VITAMIN C PO), Take by mouth., Disp: , Rfl: CALCIUM PO, Take by mouth., Disp: , Rfl: clonazePAM (KlonoPIN) 0.5 MG tablet, Take 0.5 mg by mouth daily., Disp: , Rfl: Cyanocobalamin (VITAMIN B 12 PO), Take by mouth., Disp: , Rfl: docusate sodium (Colace) 100 MG capsule, Take 1 capsule (100 mg) by mouth 2 times daily as needed for constipation for up to 15 days., Disp: 30 capsule, Rfl: 0 DULoxetine (Cymbalta) [address] capsule, Take 60 mg by mouth Nightly., Disp: , Rfl: meloxicam (Mobic) 15 MG tablet, Take 15 mg by mouth daily as needed., Disp: , Rfl: omeprazole (PriLOSEC) [address] capsule, Take 20 mg by mouth daily., Disp: , Rfl: orphenadrine (Norflex) 100 MG 12 hr tablet, Take 100 mg by mouth 2 times daily., Disp: , Rfl: oxyCODONE (Roxicodone) 5 MG immediate release tablet, Take 5 mg by mouth 3 times daily as needed., Disp: , Rfl: polyethylene glycol, PEG, 3350 (Miralax) 17 g packet, Take by mouth., Disp: , Rfl: primidone (Mysoline) 50 MG tablet, TAKE 3 TABLETS (150 MG) BY MOUTH 3 TIMES DAILY., Disp: 810 tablet, Rfl: 3 rosuvastatin (Crestor) 40 MG tablet, Take 40 mg by mouth Nightly., Disp: , Rfl: solifenacin (VESIcare) 10 MG tablet, Take 10 mg by mouth daily., Disp: , Rfl: topiramate (Topamax) 25 MG tablet, Take 25 mg by mouth 2 times daily., Disp: , Rfl: traZODone (Desyrel) 300 MG tablet, Take 450 mg by mouth Nightly., Disp: , Rfl: VITAMIN D PO, Take by mouth., Disp: , Rfl: Vraylar 1.5 MG capsule, Take 1.5 mg by mouth daily., Disp: , Rfl: albuterol 108 (90 Base) MCG/ACT inhaler, Inhale 2 puffs every 4 hours as needed., Disp: , Rfl: tiZANidine (Zanaflex) 4 MG tablet, TAKE 1 TABLET BY MOUTH THREE TIMES A DAY NEEDED FOR SPASMS, Disp: , Rfl: Vitals: BP 122/71 (BP Location: Left arm, Patient Position: Sitting, BP Cuff Size: Adult) Pulse 86 Ht 5' 8 (1.727 m) Wt 187 lb (84.8 kg) BMI 28.43 kg/m Physical Exam Physical Exam No acute distress Normal respiratory effort LABS: No results found for: PSA No results found for: TESTOSTERONE Lab Results Component Value Date WBC 14.3 (H) 07/15/2024 HGB 12.9 07/15/2024 HCT 41.1 07/15/2024 MCV 86.9 07/15/2024 PLT 292 07/15/2024 Lab Results Component Value Date GLUCOSE 97 07/15/2024 CALCIUM 8.4 (L) 07/15/2024 NA 138 07/15/2024 K 4.0 07/15/2024 CO2 23 07/15/2024 CL 108 (H) 07/15/2024 BUN 14 07/15/2024 CREATININE 0.76 07/15/2024 No components found for: LABURIN @LASTPROCPOC@ Pathology: Impression/Plan: Margot was seen today for follow up after procedure. Diagnoses and all orders for this visit: Malignant neoplasm of right kidney (HCC) (Primary) - CT abdomen w IV contrast; Future - XR chest 2 views; Future - Comprehensive metabolic panel; Future - Comprehensive metabolic panel CT, CXR and CMP in 3 months Follow up in about 3 months (around 10/27/2024). Rodríguez Vick MD 07/29/24 2:27 PM documented in this encounter [facility] 07-20-2024 Evaluation note Diagnosis Onset Date Resolution History of pulmonary embolus (PE) acute July 20 8:56am [facility] Work Phone: 1(718) 780-633801-16-2025 Nurse Note* Kathi Baird RN - 07/15/2024 2:07 PM EST Removed patient's Ivs. Reviewed discharge instructions, site care , medications, new medications, follow up appointments, what to watch for, who to call and where to go in case of an emergency with the patient and her . They verbalized their understanding and all of their questions were answered. Wheelchair transportation requested to take the patient to her 's car. [id number]* Kathi Baird RN - 07/15/2024 2:07 PM EST Removed patient's Ivs. Reviewed discharge instructions, site care , medications, new medications, follow up appointments, what to watch for, who to call and where to go in case of an emergency with the patient and her . They verbalized their understanding and all of their questions were answered. Wheelchair transportation requested to take the patient to her 's car. * Mark Joyner RN - 07/14/2024 7:00 PM EST Report given to ASHLI Gardner * Gabrielle Calderón RN - 07/14/2024 10:39 AM EST Reported Bp's 168/76 and 167/[address] Connell. Advised to not give antiHTN medications at this time. Pt.resting . No new orders received. * Gabrielle Calderón RN - 07/14/2024 10:32 AM EST Patient family/visitor updated by RN at this time. documented in this [facility]01-16-2025 History of Present illness Narrative* Earline Dye RRT - 07/15/2024 10:35 AM EST Images from the original note were not included. [facility] Smoking Cessation Progress Note Smoking Cessation Intervention Session type: initial Session length: 25 minutes Smoking History: Patient said she started smoking at age 12. She regularly smoked ~1 ppd at age 15.She quit for ~3 years, but vaped for 1 year then quit all until 2020 when she started back up, ~1 ppd. She wants quit, but no quit date set. Pack Years: 42 How important is it to the patient to quit? (0-10): 10 How confident is the patient that they can quit? (0-10): 5 Stage of Change: Pre-contemplation Fagerstrom Test for Nicotine Dependence Score: 6 Reasons to quit smoking identified: [x]Yes []No Triggers for smoking identified: [x]Yes []No Quit strategies for smoking identified: [x]Yes []No Nicotine withdrawal symptoms reviewed: [x]Yes []No Smoking urge distractions discussed: [x]Yes []No Request for nicotine withdrawal medication: []Yes [x]No Ready to choose a quit date with in the next 30 days: []Yes [x]No Additional Comments: Met with patient at bedside. She is pleasant and willing to discuss her smoking history and cessation with me. Smoking cessation booklet with contact information explained and given to patient. She states her smokes also, but thinks he would want to quit with her. Discussed vaping is not an endorsed quit method. * Eduin Khan MD - 07/15/2024 6:57 AM EST UROLOGY PROGRESS NOTE PATIENT NAME: Margot Hutchison DATE OF : 1965 ADMISSION DATE: 07/14/2024 5:16 AM TODAY'S DATE: 07/15/2024 Subjective No acute events overnight. Feels well. Denies nausea and emesis. Tolerating diet. Eager for discharge. Objective VS: BP 117/61 (BP Location: Left arm, Patient Position: Lying) Pulse 84 Temp 36.3 C (97.4 F) (Temporal) Resp 18 Ht 5' 8 (1.727 m) Wt 187 lb (84.8 kg) SpO2 93% BMI 28.43 kg/m Vitals: 07/15/24 0513 BP: 117/61 Pulse: 84 Resp: 18 Temp: 36.3 C (97.4 F) SpO2: 93% I & O - 24hr: Intake/Output Summary (Last 24 hours) at 07/15/2024 0657 Last data filed at 07/15/2024 0616 Gross per 24 hour Intake 1150 ml Output 1670 ml Net -520 ml Physical Exam: General: Neck: Resp: Abdomen: No acute distress Supple Normal effort, no respiratory distress Soft, non-tender, nondistended. Incisions C/D/I. : No flank TTP bilaterally. ALEJANDRINA drain with SS output. Skin: Skin color, texture, turgor normal, no rashes or lesions Labs and Imaging Studies Labs: CBC: Recent Labs 07/14/24 0549 07/15/24412 WBC 8.7 14.3* HGB 14.2 12.9 HCT 45.0 41.1 MCV 86.4 86.9 PLT 302 292 BMP: Recent Labs 07/15/24412 NA 138 K 4.0 CL 108* CO2 23 BUN 14 CREATININE 0.76 Magnesium: No results found for: MG Phosphate: No results found for: PHOS PT/INR: Recent Labs 07/15/24412 PROTIME 10.7 INR 0.9 U/A: No results found for: NITRITE, LEUKOCYTESUR, PHUR, BACTERIA, SPECGRAV, BLOODU, GLUCOSEU, KETONESU Urine Culture: No components found for: LABURIN Imaging Studies: N/A Assessment and Plan ASSESSMENT: 59 year old female with right renal mass s/p right partial nephrectomy on 07/14/24. PLAN: -Diet: regular -Pain control PRN -Encourage ambulation and IS use -Check ALEJANDRINA Creatinine (in process); plan for removal prior to discharge -Cotto removed during rounds -Continue to monitor O2 levels closely (last measurement 93% on RA) -Anticipate discharge later today -Plan to resume Eliquis on 07/21/24 -Please page resident with questions or concerns Bud Baez MD PGY-5, Urology 07/15/2024 6:57 AM The history and physical has been reviewed. The pertinent findings from the history of present illness, past medical history, family history, social history, review of systemshave been noted and confirmed that are unchanged. Discussed with the urology resident. Agree with assessment and plan documented in this [facility]01-16-2025 [facility] Smoking Cessation Progress Note Smoking Cessation Intervention Session type: initial Session length: 25 minutes Smoking History: Patient said she started smoking at age 12. She regularly smoked ~1 ppd at age 15. She quit for ~3 years, but vaped for 1 year then quit all until 2020 when she started back up, ~1 ppd. She wants quit, but no quit date set. Pack Years: 42 How important is it to the patient to quit? (0-10): 10 How confident is the patient that they can quit? (0-10): 5 Stage of Change: Pre-contemplation Fagerstrom Test for Nicotine Dependence Score: 6 Reasons to quit smoking identified: [x]Yes []No Triggers for smoking identified: [x]Yes []No Quit strategies for smoking identified: [x]Yes []No Nicotine withdrawal symptoms reviewed: [x]Yes []No Smoking urge distractions discussed: [x]Yes []No Request for nicotine withdrawal medication: []Yes [x]No Ready to choose a quit date with in the next 30 days: []Yes [x]No Additional Comments: Met with patient at bedside. She is pleasant and willing to discuss her smoking history and cessation with me. Smoking cessation booklet with contact information explained and given to patient. She states her smokes also, but thinks he would want to quit with her. Discussed vaping is not an endorsed quit method.[facility] [id number] NoteDischarge Summary Margot Hutchison : 1965 ADMIT DATE: 07/14/2024 DISCHARGE DATE: 07/15/2024 PRIMARY CARE PHYSICIAN: JUAN CHAN VISIT STATUS: Observation CODE STATUS: Full Code DISCHARGE DIAGNOSES: Principal Problem: Right renal mass Active Problems: Renal mass HOSPITAL COURSE: Patient was admitted following robotic assisted laparoscopic right partial nephrectomy on 07/14/24. Postoperatively, pain was well controlled. She was ambulating and tolerating a diet. ALEJANDRINA Creatinine was similar to serum Creatinine. Output remained low and ALEJANDRINA drain was removed. Oxygen levels were similar to preoperative levels. She was discharged in good condition. SIGNIFICANT DIAGNOSTIC STUDIES: ALEJANDRINA Creatinine 0.7 CONSULTANTS: None. RECOMMENDED NEXT STEPS: Follow up with Dr. Vick for pathology review. DISCHARGE MEDICATIONS: Medication List ASK your doctor about these medications albuterol 108 (90 Base) MCG/ACT inhaler amitriptyline 50 MG tablet Commonly known as: Elavil apixaban 5 MG tablet Commonly known as: Eliquis CALCIUM PO clonazePAM 0.5 MG tablet Commonly known as: KlonoPIN DULoxetine [address] capsule Commonly known as: Cymbalta meloxicam 15 MG tablet Commonly known as: Mobic omeprazole [address] capsule Commonly known as: PriLOSEC orphenadrine 100 MG 12 hr tablet Commonly known as: Norflex oxyCODONE-acetaminophen 5-325 MG tablet Commonly known as: Percocet polyethylene glycol (PEG) 3350 17 g packet Commonly known as: Miralax primidone 50 MG tablet Commonly known as: Mysoline TAKE 3 TABLETS (150 MG) BY MOUTH 3 TIMES DAILY. rosuvastatin 40 MG tablet Commonly known as: Crestor solifenacin 10 MG tablet Commonly known as: VESIcare tiZANidine 4 MG tablet Commonly known as: Zanaflex topiramate 25 MG tablet Commonly known as: Topamax traZODone 300 MG tablet Commonly known as: Desyrel VITAMIN B 12 PO VITAMIN C PO VITAMIN D PO Vraylar 1.5 MG capsule Generic drug: Cariprazine DIET: Adult diet Regular ACTIVITY: no walking restrictions, lifting restricted to 10lbs for 4 weeks COMPLEXITY OF FOLLOW UP: [x] Moderate Complexity: follow up within 7-14 calendar days (36120) [] Severe Complexity: follow up within 7 calendar days (31969) FOLLOW UP TESTING, PENDING RESULTS OR REFERRALS AT TRANSITIONAL CARE VISIT: [x] Yes [] No PENDING STUDIES: Surgical pathology DISPOSITION: Home FACILITY/HOME CARE AGENCY NAME: None Follow up with Rodríguez Vick MD [address] [place] [address] [address] [facility] [address] Follow up in 2 week(s) INSTRUCTIONS TO MA/SW: Please call patient on day after discharge (must document patient contacted within 2 business days of discharge). FOLLOW UP QUESTIONS FOR MA/SW: 1. Did you get medications filled and taking them as instructed from discharge? 2. Are you following your discharge instructions from your hospital stay? 3. Please confirm patient is scheduled for a follow up appointment within the above time frame. DISCHARGE TIME: < 30 minutes SIGNED: uBd Baez MD (PGY-5) 07/15/2024, 7:[address] [facility]01-16-2025 NoteUROLOGY PROGRESS NOTE PATIENT NAME: Margot Hutchison DATE OF : 1965 ADMISSION DATE: 07/14/2024 5:16 AM TODAY'S DATE: 07/15/2024 Subjective No acute events overnight. Feels well. Denies nausea and emesis. Tolerating diet. Eager for discharge. Objective VS: BP 117/61 (BP Location: Left arm, Patient Position: Lying) Pulse 84 Temp 36.3 ?C (97.4 ?F) (Temporal) Resp 18 Ht 5' 8 (1.727 m) Wt 187 lb (84.8 kg) SpO2 93% BMI 28.43 kg/m? Vitals: 07/15/24 0513 BP: 117/61 Pulse: 84 Resp: 18 Temp: 36.3 ?C (97.4 ?F) SpO2: 93% I & O - 24hr: Intake/Output Summary (Last 24 hours) at 07/15/2024 0657 Last data filed at 07/15/2024 0616 Gross per 24 hour Intake 1150 ml Output 1670 ml Net -520 ml Physical Exam: General: Neck: Resp: Abdomen: No acute distress Supple Normal effort, no respiratory distress Soft, non-tender, nondistended. Incisions C/D/I. : No flank TTP bilaterally. ALEJANDRINA drain with SS output. Skin: Skin color, texture, turgor normal, no rashes or lesions Labs and Imaging Studies Labs: CBC: Recent Labs 07/14/24 0549 07/15/24412 WBC 8.7 14.3* HGB 14.2 12.9 HCT 45.0 41.1 MCV 86.4 86.9 PLT 302 292 BMP: Recent Labs 07/15/24412 NA 138 K 4.0 CL 108* CO2 23 BUN 14 CREATININE 0.76 Magnesium: No results found for: MG Phosphate: No results found for: PHOS PT/INR: Recent Labs 07/15/24412 PROTIME 10.7 INR 0.9 U/A: No results found for: NITRITE, LEUKOCYTESUR, PHUR, BACTERIA, SPECGRAV, BLOODU, GLUCOSEU, KETONESU Urine Culture: No components found for: LABURIN Imaging Studies: N/A Assessment and Plan ASSESSMENT: 59 year old female with right renal mass s/p right partial nephrectomy on 07/14/24. PLAN: -Diet: regular -Pain control PRN -Encourage ambulation and IS use -Check ALEJANDRINA Creatinine (in process); plan for removal prior to discharge -Cotto removed during rounds -Continue to monitor O2 levels closely (last measurement 93% on RA) -Anticipate discharge later today -Plan to resume Eliquis on 07/21/24 -Please page resident with questions or concerns Bud Baez MD PGY-5, Urology 07/15/2024 6:57 AM The history and physical has been reviewed. The pertinent findings from the history of present illness, past medical history, family history, social history, review of systemshave been noted and confirmed that are unchanged. Discussed with the urology resident. Agree with assessment and [facility]SC[facility] Plan of care note* Care Plan - Kendra Elena RN - 07/15/2024 5:11 AM EST Problem: Pain - Adult Goal: Verbalizes/displays adequate comfort level or baseline comfort level Outcome: Progressing Problem: Safety - Adult Goal: Free from fall injury Outcome: Progressing Problem: Discharge Planning Goal: Discharge to home or other facility with appropriate resources Outcome: Progressing Problem: Chronic Conditions and Co-morbidities Goal: Patient's chronic conditions and co-morbidity symptoms are monitored and maintained or improved Outcome: Progressing [id number] Miscellaneous Notes* Care Plan - Kendra Elena RN - 07/15/2024 5:11 AM EST Problem: Pain - Adult Goal: Verbalizes/displays adequate comfort level or baseline comfort level Outcome: Progressing Problem: Safety - Adult Goal: Free from fall injury Outcome: Progressing Problem: Discharge Planning Goal: Discharge to home or other facility with appropriate resources Outcome: Progressing Problem: Chronic Conditions and Co-morbidities Goal: Patient's chronic conditions and co-morbidity symptoms are monitored and maintained or improved Outcome: Progressing * Perioperative Nursing Note - Vandana Mcmillna RN - 07/14/2024 12:45 PM EST Updated spouse on patient's room number. * Perioperative Nursing Note - Vandana Mcmillan RN - 07/14/2024 12:41 PM EST Report called to ASHLI Aguilar on H5. All questions answered. * Perioperative Nursing Note - Vandana Mcmillan RN - 07/14/2024 11:01 AM EST Updated via phone call. * Op Note - Rodríguez Vick MD - 07/14/2024 7:07 AM EST DOS: July 14, 2024 Pre-op Diagnosis: MALIGNANT NEOPLASM OF KIDNEY, EXCEPT PELVIS Post-op Diagnosis: MALIGNANT NEOPLASM OF KIDNEY, EXCEPT PELVIS Operation: RIGHT PARTIAL NEPHRECTOMY (laparoscopic with robotic assistance) Intraoperative diagnostic ultrasound of kidney and retroperitoneum Surgeon : Rodríguez Vick M.D. Consulting Utility Forester: [employer] NAIDU (no resident was available due to academic protected time, [employer]IPMENT TENDER was needed to bedside assist, pass sutures, change instruments) Anesthesia: General Special Consideration: Modifier Indications:Margot Hutchison is a 59 y.o. year-old female who was referred to ms for treatment of a rightsided renal mass. A CT/MRI scan revealed 2cm renal mass . The patient elected to undergo partial nephrectomy with da Armando surgical robot. All risks, benefits and alternatives were discussed, and allquestions were answered prior to proceeding. She understood all options including active surveillance of the mass. Individual considerations: Mass Size: 2cm Mass location and side: Right mid pole-hilar in nature Vessel anomaly: single artery and single vein Intraoperative ultrasound: yes Permanent sections: 1) L partial nephrectomy Hilar clamp: Bulldog x 1 Hilar clamp time: 14 minutes EBL: less than 50 ml Procedure : Informed consent was obtained. Patient was given perioperative antibiotics and DVT prophylaxis in preop holding area. General anesthesia was administered. A Cotto catheter was placed. A nasogastrictube was placed by anesthesia. Patient was placed in the flank position . All the pressure points were padded and patient secured to the table with adhesive tapes. STEP 1; PORT PLACEMENT Pneumoperitoneum of 15 mmHg was created by placing a Veress needle through in hypochondrium. Using a visiport a 8 mm cannula the placed lateral to the mid calvicular line at the level midway between umbilicus and costal margin. A 30 binocular telescope, looking upward, was then placed through the camera port. All other ports were placed under direct vision. Three 8 mm robotic ports one on right side and two on left side of camera port, one 12 mm was placed just lateral to umbilicus and one 5 mmright port was placed at midline superior to umbilicus for 5mm liver retractor. After placing the ports, The surgical cart was then docked to the ports. STEP 2; Exposure of kidney The peritoneum was incised from Cecum to hepatic flexure lateral to the white line of Toldt. The colon was then reflected medially to expose right ureter, gonadal vessels and IVC. Care was taken not to dissect in and lateral to fascia of Gerota. A plane of dissection was created between the ureter and the gonadal vein and ureter was followed superiorly to the renal hilum. The second part of duodenum was carefully reflected medially to expose the renal hilum. OPERATIVE FINDING STEP 3; HILAR DISSECTION The renal hilum was carefully dissected to isolate the renal vessels. Single renal vein and single renal artery were found and isolated and skeletenized free of hilar fat. STEP 4: EXCISION OF THE TUMOR At this point, the mid-pole perinephric fat was cleaned off the renal capsule. The mass was in a challenging location, medal and hilar. Intraoperative ultrasound using a 7.5 mHz flexitip lap probe confirmed this to be the renal mass as this correlated with the preop imaging with respect to size andlocation. Under ultrasound guidance, monopolar cautery was used to score around this lesion on the capsule. Once ready to proceed, the renal artery was clamped by the bulljacy and then we proceeded to excise the mass using monopolar curved michael without any cautery, following its observable plane abutting the renal parenchyma and staying out of the mass. I di need to use small robotic metal clips on small vessels feeding into the tumor from the segmental veins and arteries. There was an observable plane that extended all the way around the mass, throughout the base. STEP 5: REPAIR AND RENORRAPHY Using two 2-0 vicryl sutures the base was over sewn and the collecting system was closed with lapartys at the ends. Any large vascular cut edges were oversewn to achieve hemostasis The bulldogs were removed to achieve early hemostasis. The kidney regained color and bleeding was observed from the partial nephrectomy bed. Using 2 separate [address] 1 needle a slidig clip renorrhaphy was performed to close the defect and bring the renal edges together. After completing this and providing appropriate tension, hemostasis was excellent. Pneumo was placed to 6, defect was monitored for 15 mins. Hemostasis remained excellent, hemostatic agent placed. Perinephric fat was used to cover over the defect and closed with 2-0 vicryl in a running fashion. All additional clots were then irrigated out and a 19 round ALEJANDRINA drain was placed under vision. The specimen was retreived with a 12mm endocatch bag. STEP 6; SPECIMEN RETRIEVAL The specimen within the retrieval bag was removed after enlarging the periumbilical port . The incision was e closed en-mass using 0 vicryl ur 6 x 2. T Skin was closed by 4-0 monocryls Patient tolerated the procedure well. documented in this [facility]01-15-2025 Nurse Note* Mark Joyner RN - 07/14/2024 7:00 PM EST Report given to ASHLI Gardner [id number] Note* Perioperative Nursing Note - Vandana Mcmillan RN - 07/14/2024 12:45 PM EST Updated spouse on patient's room number. [id number] Note* Perioperative Nursing Note - Vandana Mcmillan RN - 07/14/2024 12:45 PM EST Updated spouse on patient's room number. [id number] Note* Perioperative Nursing Note - Vandana Mcmillan RN - 07/14/2024 12:41 PM EST Report called to ASHLI Aguilar on H5. All questions answered. [address]pyzrf22-30-2094 Note* Perioperative Nursing Note - Vandana Mcmillan RN - 07/14/2024 12:41 PM EST Report called to ASHLI Aguilar on H5. All questions answered. [id number] Note* Perioperative Nursing Note - Vandana Mcmillan RN - 07/14/2024 11:01 AM EST Updated via phone call. [address]15-2025 Note* Perioperative Nursing Note - Vandana Mcmillan RN - 07/14/2024 11:01 AM EST Updated via phone call. [address]15-2025 Nurse Note* Gabrielle Calderón RN - 07/14/2024 10:39 AM EST Reported Bp's 168/76 and 167/[address] Connell. Advised to not give antiHTN medications at this time. Pt.resting . No new orders received. [id number] Nurse Note* Gabrielle Calderón RN - 07/14/2024 10:32 AM EST Patient family/visitor updated by RN at this time. [facility] [id number] Hospital Discharge instructions* Discharge Instructions* Bud Baez MD - 07/14/2024 10:11 AM EST PATIENT DISCHARGE INSTRUCTIONS C O N F I D E N T I A L I N F O R M A T I O N The following is a brief overview of your hospitalization. Some of the information contained on this summary may be confidential. This information should be kept in your records and should be shared with your regular doctor. Patient Name: Margot Hutchison Account #: @[email or web address]@ Admission Date: 07/14/2024 Date of Discharge: 07/14/2024 Discharge Diet: Resume pre-op diet Activity after Discharge: No walking restrictions Lifting restricted to 10lbs for 4 weeks Treatment/wound care: Keep incision clean and dry. May shower and pat dry. No ointments to incision. If you have steri-strips in place, you may remove them as they become detached. No tub/swimming/ocean x 8 weeks documented in this [facility]01-15-2025 NotePatient: Margot Hutchison Procedure Summary Date: 07/14/24 Room / Location: [address] Operating Room Anesthesia Start: 706 Anesthesia Stop: 944 Procedure: ROBOTIC RIGHT PARTIAL NEPHRECTOMY, POSSIBLE RADICAL NEPHRECTOMY (Right: Abdomen) Diagnosis: Cyst of kidney, acquired Surgeons: Rodríguez Vick MD Responsible Provider: Yrn Harrison MD Anesthesia Type: general, regional ASA Status: 3 Anesthesia Type: general, regional Vitals Value Taken Time BP 165/53 07/14/24 0945 Temp 97.5 07/14/24 0948 Pulse 100 07/14/24 0947 Resp 17 07/14/24 0947 SpO2 96 % 07/14/24 0947 Vitals shown include unfiled device data. Anesthesia Post Evaluation Patient location during evaluation: PACU Patient participation: complete - patient participated Level of consciousness: awake and alert Pain management: satisfactory to patient Airway patency: patent Dental Injury: no Cardiovascular status: acceptable, blood pressure returned to baseline and hemodynamically stable Respiratory status: acceptable and spontaneous ventilation Hydration status: euvolemic Nausea/Vomiting: controlled No notable events documented. Patient can be discharged once all PACU criteria has been met.[facility] [id number] NotePatient: Margot Quick Procedure Summary Date: 07/14/24 Room / Location: [address] Operating Room Anesthesia Start: 706 Anesthesia Stop: 944 Procedure: ROBOTIC RIGHT PARTIAL NEPHRECTOMY, POSSIBLE RADICAL NEPHRECTOMY (Right: Abdomen) Diagnosis: Cyst of kidney, acquired Surgeons: Rodríguez Vick MD Responsible Provider: Yrn Harrison MD Anesthesia Type: general, regional ASA Status: 3 Anesthesia Type: general, regional Vitals Value Taken Time BP 165/53 07/14/24 0945 Temp 97.5 07/14/24 0947 Pulse 100 07/14/24 0947 Resp 17 07/14/24 0947 SpO2 96 % 07/14/24 0947 Vitals shown include unfiled device data. Anesthesia Post Evaluation Patient location during evaluation: PACU Patient participation: complete - patient participated Level of consciousness: awake and alert Pain management: satisfactory to patient Multimodal analgesia pain management approach Airway patency: patent Two or more strategies used to mitigate risk of obstructive sleep apnea Cardiovascular status: acceptable and hemodynamically stable Respiratory status: acceptable Hydration status: acceptable No notable events documented. MIPS #430 PONV Patient received an inhalational anesthetic (4554F) Patient exhibits three or more risk factors for PONV (4556F) Patient received at aset 2 prophylactic Rx PONV anti-emtic agents of different classes preop and/or intraop (G9775) MIPS # 424 Perioperative Temperature Management Anesthesia time was 60 minutes or longer (4255F) Anesthesai administered was General (inhalational or TIVA) or Neuraxial block (X0424) At least one body temperature greater than 95.8F/35.5C achieved within the 30 mins immediately prior to or the 15 minutes immediately following anesthesia end time (G9771) MIPS #477 Multimodal Pain Management Not emergent case Patient was administered multimodal pain management (two or more drugs and/or interventions excluding systemic opioids) in the periopeartive period occurring at some time between 6 hours prior to anesthesia start time until discharged from PACU (G2148) [facility] #404 Anesthesiology Smoking Abstinence The patient is not a current smoker (e.g. cigarette, cigar, pipe, e-cigarette/vaping/marijuana) If no stop here (XX404) I completed my handoff to the receiving clinician during which we: 1. Identified the patient 2. Identified the responsible provider 3. Reviewed the pertinent medical history 4. Discussed the surgical course 5. Reviewed intra-op anesthesia management and issues during anesthesia 6. Set expectations for post-procedure period 7. Allowed opportunity for questions and acknowledgement of understanding.[facility]01-15-2025 NotePeripheral IV Date/Time: 07/14/2024 7:21 AM Inserted by: Brandan Varner CRNA Placement Needle size: 20 G Laterality: right Location: antecubital Site prep: alcohol Technique: anatomical landmarks Attempts: [address] [place], [place] [id number] NoteAirway Date/Time: 07/14/2024 7:19 AM Urgency: scheduled Airway not difficult General Information and Staff Patient location during procedure: Procedural Anesthesiologist: Yrn Harrison MD Resident/COTTON PICKER OPERATOR: Rachel Gonzalez APRN - COTTON PICKER OPERATOR Performed: COTTON PICKER OPERATOR Indications and Patient Condition Indications for airway management: anesthesia Sedation level: Asleep Preoxygenated: yes Patient position: sniffing Mask difficulty assessment: 1 - vent by mask Final Airway Details Final airway type: endotracheal airway Successful airway: ETT Cuffed: yes Successful intubation technique: direct laryngoscopy Facilitating devices/methods: intubating stylet Endotracheal tube insertion site: oral Blade: Riki Blade size: #3 ETT size (mm): 7.0 Cormack-Lehane Classification: grade IIa - partial view of glottis Placement verified by: chest auscultation, capnometry and palpation of cuff Measured from: lips ETT to lips (cm): 21 Number of attempts at approach: [address] [place], [place] [id number] Note Peripheral Block Time Out: 07/14/2024 7:19 AM Patient location during procedure: Procedural Start time: 07/14/2024 7:19 AM End time: 07/14/2024 7:22 AM Reason for block: at surgeon's request and post-op pain management Staffing Performed: COTTON PICKER OPERATOR Resident/COTTON PICKER OPERATOR: Brandan Varner CRNA Preanesthetic Checklist Completed: patient identified, IV checked, site marked, risks and benefits discussed, surgical consent and timeout performed Region: Truncal Primary: Quadratus Lumborum Secondary: Upper rectus Peripheral Block Prep: ChloraPrep Patient monitoring: heart rate, vehicle monitor technician, continuous pulse ox and continuous capnometry O2: ETT/LMA Laterality: left Injection technique: single-shot Guidance: ultrasound guided -image retained in chart, tip of the needle identified by ultraound during injection. Needle Needle: 21G X 110 mm Additional Notes 40mL tap solution left QL 20mL tap solution upper rectus divided equally bilaterally 07/14/2024 7:19 AM Assessment Injection assessment: negative aspiration for heme, no paresthesia on injection, incremental injection, local visualized surrounding nerve on ultrasound and transient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 brace. Your back pain is getting worse or is not improving over time. You notice redness or skin breakdown from wearing the brace. Summary You may need to wear a back brace to relieve back pain or to correct a medical condition related tothe back, such as abnormal curvature of the spine (scoliosis). Follow instructions as told by your health care provider about how to use the brace and how to takecare of it. A back brace may not help if you do not wear it as directed by your health care provider. Wear the brace exactly as instructed in order to prevent further back problems. Move carefully while wearing the brace. Contact a health care provider if you have pain or discomfort when wearing the back brace or your back pain is getting worse or is not improving over time. This information is not intended to replace advice given to you by your health care provider. Make sure you discuss any questions you have with your health care provider. Document Released: 06/04/2012 Document Revised: 05/12/2019 Document Reviewed: 05/12/2019 [employer] Patient Education 2020 [employer]. 03/22/2024 15:30:11 Rib Fracture, Iayv-bo-Ncjm Rib Fracture A rib fracture is a break or crack in one of the bones of the ribs. The ribs are like a cage that goes around your upper chest. A broken or cracked rib is often painful, but most do not cause other problems. Most rib fractures usually heal on their own in 1 3 months. Follow these instructions at home: Managing pain, stiffness, and swelling If directed, apply ice to the injured area. ?Put ice in a plastic bag. ?Place a towel between your skin and the bag. ?Leave the ice on for 20 minutes, 2 3 times a day. Take istu-zvi-kvspytn and prescription medicines only as told by your doctor. Activity Avoid activities that cause pain to the injured area. Protect your injured area. Slowly increase activity as told by your doctor. General instructions Do deep breathing as told by your doctor. You may be told to: ?Take deep breaths many times a day. ?Cough many times a day while hugging a pillow. ?Use a device (incentive spirometer) to do deep breathing many times a day. Drink enough fluid to keep your pee (urine) clear or pale yellow. Do not wear a rib belt or binder. These do not allow you to breathe deeply. Keep all follow-up visits as told by your doctor. This is important. Contact a doctor if: You have a fever. Get help right away if: You have trouble breathing. You are short of breath. You cannot stop coughing. You cough up thick or bloody spit (sputum). You feel sick to your stomach (nauseous), throw up (vomit), or have belly (abdominal) pain. Your pain gets worse and medicine does not help. Summary A rib fracture is a break or crack in one of the bones of the ribs. Apply ice to the injured area and take medicines for pain as told by your doctor. Take deep breaths and cough many times a day. Hug a pillow every time you cough. This information is not intended to replace advice given to you by your health care provider. Make sure you discuss any questions you have with your health care provider. Document Released: 03/25/2009 Document Revised: 05/29/2018 Document Reviewed: 09/16/2017 [employer] Patient Education 2020 [employer]. Follow Up Care 03/20/2024 07:06:38 With:Outpatient PT/OT Address:Unknown When:1-2 days Comments:Please take your paper orders to your outpatient facility of choice. You will need to call to setupyour initial appointment. With:[facility] Address:Unknown When:1-2 days Comments:We were unable to secure [facility] during your admission that accepted your insurance and the location that you live. You can follow-up with your PCP if you want to explore this further. With:JUAN CHAN DO Address: [address] [place] [address]- When:1-2 days Comments:Please call the office to schedule a hospital follow-up appointment. With:HAWA SINGLETARY MD, Neurosurgery Address: [address] [place] [address]- When:Within 4 Week(s) Comments:Please call the office to schedule a hospital follow-up appointment With:MYRNA BROTHERS DO, Orthopedic Address: [address] [facility], [place] [address]- When:04/03/2024 Comments:Please call the office to schedule a hospital follow-up appointment [facility] 09-23-2024 Note Discharge Instructions Thank you for allowing [facility] to assist you with your healthcare needs. The following is importantdischarge information regarding your hospital visit. Your Care Team JUAN CHAN DO What to do next Instructions From Your Doctor You are scheduled to have a back xray at [facility] on . Please arrive to Radiology dept on the ground floor by ____ for this test. After Xray is completed, then go to Dr. Singletary office located on the 5th floor of the Physician's Office Building (POB) for re-evaluation and review xray results. Wear back brace at all times when sitting up, out of bed, ambulating and riding in a vehicle Contact Neurosurgery office or go to the ER with any new or worsening back pain or Leg symptoms (pain, numbness, tingling, weakness) Call Dr. Singletary's office with any questions or concerns. Scheduled Follow-Up Appointments Appointment Type When With Where Contact Information StatusNS OV 04/20/2024 01:30 PM HAWA HERRERA MD Neurosurgery [address] [id number] Confirmed Follow Up Appointments Follow Up with Outpatient PT/OT When:Within 1-2 days Additional Information: Please take your paper orders to your outpatient facility of choice. You will need to call to setup your initial appointment. Follow Up with HHC When:Within 1-2 days Additional Information: We were unable to secure [facility] during your admission that accepted your insurance and the location that you live. You can follow-up with your PCP if you want to explore this further. Follow Up with JUAN CHAN DO When:Within 1-2 days Where:[address] [place] [address]- Additional Information: Please call the office to schedule a hospital follow-up appointment. Follow Up with HAWA SINGLETARY MD, Neurosurgery When:In 4 weeks Where:[address] [place] [address]- Additional Information: Please call the office to schedule a hospital follow-up appointment Follow Up with MYRNA BROTHERS DO, Orthopedic When:In 2 weeks 04/03/2024 EDT Where:[address] [facility], [place] [address]- Additional Information: Please call the office to schedule a hospital follow-up appointment The Following Activity and Diet Have Been Ordered for You Discharge Activity - Ordered -- Lifting Restricted less than 10 pounds Driving Restricted May Shower, No heavy lifting or strenuous activity. No driving while taking narcotic pain medication. TLSO brace to be worn at all times when up out of bed. Greater than 30 degrees., ... Discharge Activity - Ordered -- Other, Nonweightbearing left lower extremity., 03/22/24 13:17:00 EDT Discharge Driving Restrictions - Ordered -- No driving until pain-free, No driving if taking narcotic pain medication., 03/22/24 13:17:00 EDT Discharge Diet - Ordered -- Type of Diet: Regular Diet, No changes were made to your diet during your hospital stay. Please resume your pre hospitalization diet on discharge., 03/22/24 13:17:00 EDT The Following Equipment Has Been Ordered for You No qualifying data available. The Following Treatments Have Been Ordered for You Discharge Labs No qualifying data available. Discharge Radiology No qualifying data available. Other Therapies Occupational Therapy Outpatient Eval & Treat (Occupational Therapy Outpatient Evaluation and Treatment) - Future -- 03/22/24, Unspecified, [place], generalized weakness, Decreased ADL function, TLSO brace to be worn at all times when greater than 30 degrees. Non- weightbearing to left lower extremity, Future Order, Once, No Physical Therapy Outpatient Eval & Treat (Physical Therapy Eval and Treat Outpatient) - Future -- 03/22/24, Unspecified, [place], TLSO brace to be worn at all times when greater than 30 degrees.Non-weightbearing to left lower extremity, generalized weakness, Weakness, Future Order, Once, No Post Acute Orders No qualifying data available. Someone Will Contact You Regarding These Home Health Referrals No home referrals have been ordered for you. No one will call you. Allergies Anti-Fungal Augmentin Medications Please ask your primary doctor or pharmacist before taking any other medication not listed, including over the counter drugs, herbal medications, vitamins and or supplements as they may interact withyour home medications. What How Much When Instructions Last Dose New acetaminophen (Tylenol 325 mg oral capsule) 650 Milligram by mouth Every 6 hours Unchanged acetaminophen-oxyCODONE (Percocet 5 mg-325 mg oral tablet) 1 tab(s) by mouth Two (2) times a day Unchanged ascorbic acid (Vitamin C) Once a day Unchanged cariprazine (Vraylar) 0.5 Milligram by mouth Once a day Unchanged clonazePAM (clonazepam 0.25 mg oral disint tablet) 1 tab(s) by mouth Once a day (in the morning) Unchanged multivitamin (Vitamin B Complex 100) Unchanged multivitamin with minerals (Vitamin D with Minerals oral tablet) 1 tab(s) by mouth Once a day Unchanged rosuvastatin (rosuvastatin 40 mg oral tablet) 1 tab(s) by mouth Daily at bedtime Unchanged tiZANidine (tiZANidine 4 mg oral capsule) 1 cap by mouth Three (3) times a day Unchanged topiramate (topiramate 25 mg oral capsule) 1 cap by mouth Once a day Unchanged traZODone 450 Milligram by mouth Daily at bedtime Please take this list to your next doctor s visit. Bring all medications you take, including over the counter medications, herbals and other supplements with you to your doctor s visit. Patients and families are reminded to discard old lists and to update any records with all medication providers or retail pharmacies. Education Materials Ankle Fracture The ankle joint is made up of the lower (distal) sections of your lower leg bones(tibia and fibula)along with a bone in your foot (talus). An ankle fracture is a break in one, two, or all three of these sections of bone. Follow these instructions at home: If you have a splint: Wear the splint as told by your doctor. Take it off only as told by your doctor. Loosen the splint if your toes tingle, become numb, or turn cold and blue. Keep the splint clean. If the splint is not waterproof: ? Do not let it get wet. ? Cover it with a watertight covering when you take a bath or a shower. If you have a cast: Do not stick anything inside the cast to scratch your skin. Doing that increases your risk of infection. Check the skin around the cast every day. Tell your doctor about any concerns. You may put lotion on dry skin around the edges of the cast. Do not put lotion on the skin underneath the cast. Keep the cast clean. If the cast is not waterproof: ? Do not let it get wet. ? Cover it with a watertight covering when you take a bath or a shower. Managing pain, stiffness, and swelling If directed, put ice on the injured area: ? If you have a removable splint, remove it as told by your doctor. ? Put ice in a plastic bag. ? Place a towel between your skin and the bag. ? Leave the ice on for 20 minutes, 2 3 times a day. Move your toes often. This prevents stiffness and lessens swelling. Raise (elevate) the injured area above the level of your heart while you are sitting or lying down. General instructions Do not use the injured limb to support your body weight until your doctor says that you can. Use crutches as told by your doctor. Take nclx-vsn-dhprono and prescription medicines only as told by your doctor. Ask your doctor when it is safe to drive if you have a cast or splint. Do exercises as told by your doctor. Do not use any products that contain nicotine or tobacco, such as cigarettes and e-cigarettes. These can delay bone healing. If you need help quitting, ask your doctor. Keep all follow-up visits as told by your doctor. This is important. Contact a doctor if: Your pain or swelling gets worse. Your pain or swelling does not get better when you rest or take medicine. Get help right away if: Your cast gets damaged. You continue to have very bad pain. You have new pain or swelling. Your skin or toes below the injured ankle: ? Turn blue or lau. ? Feel cold or numb. ? Lose sensitivity to touch. Summary An ankle fracture is a break in one, two, or all three of the bones in your lower leg and lower foot. If you have a splint, wear it as told by your health care provider. Keep it clean and dry. If you have a cast, do not stick anything inside the cast to scratch your skin. This can cause infection. Use ice, take medicines, raise your foot, and avoid tobacco and nicotine products. These steps willlessen pain and swelling and speed up healing. This information is not intended to replace advice given to you by your health care provider. Make sure you discuss any questions you have with your health care provider. Document Released: 04/13/2010 Document Revised: 05/29/2018 Document Reviewed: 07/21/2017 [employer] Patient Education 2020 [employer]. How to Use a Walker This sheet gives you information about how to use a walker. Your health care provider may also: Give you more specific instructions based on your condition. Give you instructions on how to use your legs or arms to support your body weight (weight bearing). What are the risks? Using a walker is generally safe. However, it may cause falls if it is not used correctly. How to walk with a walker The best way to walk with a walker depends on whether you are using a standard walker or a front-wheeled walker. A standard walker has rubber tips on the ends of all four legs. A front-wheeled walkerhas wheels on the ends of the front legs and rubber tips on the ends of the back legs. Do not use your walker on stairs or an escalator unless you have been trained by a physical therapist and your health care provider approves. Standard walker 1. hotel services supervisor your walker. Do not slide your standard walker. 2. Set down your walker, one step-length in front of you. Make sure that all four legs of the walker touch the ground at the same time. Your toes should be farther forward than the back legs of your walker. 3. Hold on to the walker, and press it with your arms for support. 4. Step your weaker leg into the middle of the walker. Step your stronger leg forward to land next to your weaker leg. 5. Repeat this process for each step. Front-wheeled walker 1. Slide your front-wheeled walker one step-length in front of you. Your toes should be farther forward than the back legs of your walker. 2. Hold on to the walker for support and press through the handrails as needed for support. 3. Step your weaker leg into the middle of the walker. Step your stronger leg forward to land next to your weaker leg. 4. Repeat the process for each step. Tips Always keep both feet within the width of the walker's legs or wheels. When using your walker, you should not feel like you need to lean forward or to the side to keep your hands on the handgrips. Make sure you are following any weight-bearing instructions that your health care provider gave you. If you have a standard walker: ? Do not slide your walker when you are moving. If you have a front-wheeled walker: ? Be careful not to let the walker get too far ahead of you as you walk. ? If your walker does not glide well over carpet, consider cutting an X into two tennis balls and placing the balls over the back legs of your walker. How to stand up with a walker 1. Put your walker in front of you. 2. Slide forward in your chair. 3. Position your legs so that your weaker leg is ahead of you and your stronger leg is bent and near your chair. 4. Position your hands. If your chair has armrests, put each hand on an armrest. If there are no armrests, put the hand opposite your weaker leg on the chair seat, and put the other hand on the center of the walker's crossbar. 5. Lean forward and push up from your chair. 6. Rise by straightening your stronger leg. 7. Steady yourself. 8. Carefully move your hands to the handgrips of the walker. Tips Do not pull on the walker when you stand up. This may cause it to tip. Sit in a firm chair whenever you can. A low seat or an overstuffed chair or sofa is hard to get outof. How to sit down with a walker Seat with armrests 1. Back up toward your seat, using your walker, until you feel the back of your legs touch the chair. 2. Carefully reach your hands behind you and put each hand on an armrest. 3. Slowly lower yourself into the seat with your injured leg out in front. Seat without armrests 1. Back up toward the side of the seat, using your walker, until you feel the back of your legs touch the chair. 2. Use one hand to hold on to the back of the chair, and use the other hand to hold on to the front ofthe seat. 3. Slowly lower yourself into the seat. How to use a walker on a curb or step Stepping up 1. Put all four legs of the walker on the curb or step. 2. Get your feet as close to the curb or step as you can. 3. Test the steadiness of the walker by pressing down on the handgrips. 4. If the walker is steady, press down on it with your hands as you step up with your stronger leg. 5. Step up with your weaker leg. Stepping down 1. Put all four legs of the walker on the surface that is lower than the curb or step. 2. Get your feet as close to the curb or step as you can. 3. Test the steadiness of the walker by pressing down on the handgrips. 4. If the walker is steady, press down on it with your hands as you step down with your weaker leg. 5. Step down with your stronger leg. Summary Follow specific instructions from your health care provider on how to use a walker. Do not use your walker on stairs or an escalator unless you have been trained by a physical therapist and your health care provider approves. Make sure you are following any weight-bearing instructions that your health care provider gave you. This information is not intended to replace advice given to you by your health care provider. Make sure you discuss any questions you have with your health care provider. Document Released: 06/16/2006 Document Revised: 05/12/2019 Document Reviewed: 05/12/2019 [employer] Patient Education 2020 [employer] How to Use a Back Brace A back brace is a form-fitting device that wraps around your trunk to support your lower back, abdomen, and hips. You may need to wear a back brace to relieve back pain or to correct a medical condition related to the back, such as abnormal curvature of the spine (scoliosis). A back brace can maintain or correct the shape of the spine and prevent a spinal problem from getting worse. A back brace can also take pressure off the layers of tissue (disks) between the bones of the spine (vertebrae). You may need a back brace to keep your back and spine in place while you heal from an injury or recover from surgery. Back braces can be either plastic (rigid brace) or soft elastic (dynamic brace). A rigid brace usually covers both the front and back of the entire upper body. A soft brace may cover only the lower back and abdomen and may fasten with self- adhesive elastic straps. Your health care provider will recommend the proper brace for your needs and medical condition. What are the risks? A back brace may not help if you do not wear it as directed by your health care provider. Be sure to wear the brace exactly as instructed in order to prevent further back problems. Wearing the brace may be uncomfortable at first. You may have trouble sleeping with it on. It may also be hard for you to do certain activities while wearing it. If the back brace is not worn as instructed, it may cause rubbing and pressure on your skin and maycause sores. How to use a back brace Different types of braces will have different instructions for use. Follow instructions from your health care provider about: How to put on the brace. When and how often to wear the brace. In some cases, braces may need to be worn for long stretches of time. For example, a brace may need to be worn for 16 23 hours a day when used for scoliosis. How to take off the brace. Any safety tips you should follow when wearing the brace. This may include: ? Move carefully while wearing the brace. The brace restricts your movement and could lead to additional injuries. ? Use a cane or walker for support if you feel unsteady. ? Sit in high, firm chairs. It may be difficult to stand up from low, soft chairs. ? Check the skin around the brace every day. Tell your health care provider about any concerns. How to care for a back brace Do not let the back brace get wet. Typically, you will remove the brace for bathing and then put itback on afterward. If you have a rigid brace, be sure to store it in a safe place when you are not wearing it. This will help to prevent damage. Clean or wash the back brace with mild soap and water as told by your health care provider. Contact a health care provider if: Your brace gets damaged. You have pain or discomfort when wearing the back brace. Your back pain is getting worse or is not improving over time. You notice redness or skin breakdown from wearing the brace. Summary You may need to wear a back brace to relieve back pain or to correct a medical condition related tothe back, such as abnormal curvature of the spine (scoliosis). Follow instructions as told by your health care provider about how to use the brace and how to takecare of it. A back brace may not help if you do not wear it as directed by your health care provider. Wear the brace exactly as instructed in order to prevent further back problems. Move carefully while wearing the brace. Contact a health care provider if you have pain or discomfort when wearing the back brace or your back pain is getting worse or is not improving over time. This information is not intended to replace advice given to you by your health care provider. Make sure you discuss any questions you have with your health care provider. Document Released: 06/04/2012 Document Revised: 05/12/2019 Document Reviewed: 05/12/2019 [employer] Patient Education 2020 [employer]. Rib Fracture A rib fracture is a break or crack in one of the bones of the ribs. The ribs are like a cage that goes around your upper chest. A broken or cracked rib is often painful, but most do not cause other problems. Most rib fractures usually heal on their own in 1 3 months. Follow these instructions at home: Managing pain, stiffness, and swelling If directed, apply ice to the injured area. ? Put ice in a plastic bag. ? Place a towel between your skin and the bag. ? Leave the ice on for 20 minutes, 2 3 times a day. Take jhmu-cgw-efceved and prescription medicines only as told by your doctor. Activity Avoid activities that cause pain to the injured area. Protect your injured area. Slowly increase activity as told by your doctor. General instructions Do deep breathing as told by your doctor. You may be told to: ? Take deep breaths many times a day. ? Cough many times a day while hugging a pillow. ? Use a device (incentive spirometer) to do deep breathing many times a day. Drink enough fluid to keep your pee (urine) clear or pale yellow. Do not wear a rib belt or binder. These do not allow you to breathe deeply. Keep all follow-up visits as told by your doctor. This is important. Contact a doctor if: You have a fever. Get help right away if: You have trouble breathing. You are short of breath. You cannot stop coughing. You cough up thick or bloody spit (sputum). You feel sick to your stomach (nauseous), throw up (vomit), or have belly (abdominal) pain. Your pain gets worse and medicine does not help. Summary A rib fracture is a break or crack in one of the bones of the ribs. Apply ice to the injured area and take medicines for pain as told by your doctor. Take deep breaths and cough many times a day. Hug a pillow every time you cough. This information is not intended to replace advice given to you by your health care provider. Make sure you discuss any questions you have with your health care provider. Document Released: 03/25/2009 Document Revised: 05/29/2018 Document Reviewed: 09/16/2017 [employer] Patient Education 2020 [employer]. Additional Information VACCINATE! IT SAVES LIVES! Members of the community who have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 ON. 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 NEG LOC. pain; trauma [id number]^ TECHNIQUE: Noncontrast CT performed according to protocol with multiplanar reconstructions. This exam was performed according to our departmental dose optimization program, and includes the following measures where applicable: automated exposure control, adjustment of the mAs and/or kVp according to patient size and/or exam, and an iterative reconstruction algorithm. FINDINGS: Anterior fixating plate and screws C6-C7. No evidence for hardware complication, or acute osseous abnormality. Grade 1 anterolisthesis C4 on C5 and C5 on C6. Moderate diffuse degenerative facet change. Mild atrophy paraspinal musculature. Included portion of trachea patent. IMPRESSION:[] No acute osseous abnormality demonstrated within the limits of this exam. Chronic and operative changes cervical spine. Note: Due to time limits, this images were reviewed and report signed even though it is missing multiple coronal cervical spine images. These were requested via core team at 8:02 a.m. March 20, 2024. If missing images are provided for review, an addendum will be added. Interpreted by: Myrna Mondragon DO Preliminary Report By: Myrna Mondragon DO Electronically signed By Myrna Mondragon DO Dictated Date: 03/20/2024 8:00:54 AM Prelim Date: 03/20/2024 8:21:15 AM Sign Date: 03/20/2024 8:21:15 AM Ordering Provider: [facility]09-21-2024 Note ORIGINAL EXAMINATION: Exam Title:CT OF THE HEAD WITHOUT CONTRAST Completed Time: 03/20/2024 7:56 am Procedure Description:CT HEAD/BRAIN WITHOUT CONTRAST COMPARISON: No direct comparison available HISTORY: ORDERING SYSTEM PROVIDED HISTORY: Reason for Exam: TRAUMA STANDBY. HIT FRONT HEAD RT EYE LAC/BRUISE. C COLLAR ON. 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 NEG LOC. pain; trauma patient TECHNIQUE: Non-contrast CT head performed according to protocol. Multiplanar reconstructions performed. This exam was performed according to our departmental dose optimization program, and includes the following measures where applicable: automated exposure control, adjustment of the mAs and/or kVp according to patient size and/or exam, and an iterative reconstruction algorithm. FINDINGS: Tiny amount of subcutaneous soft tissue swelling right supraorbital location. There is no gross intracranial hemorrhage, midline shift, or mass effect . No evidence for major vessel acute ischemic change. No acute osseous abnormality. Included portions of the globes, retrobulbar soft tissue, paranasal sinuses, mastoid air cells, and middle ears are normal in appearance. IMPRESSION: Subcutaneous soft tissue swelling. No acute intracranial process demonstrated. CT head exam limited for evaluation for subtle acute ischemic process. Interpreted by: Myrna Mondragon DO Preliminary Report By: Myrna Mondragon DO Electronically signed By Myrna Mondragon DO Dictated Date: 03/20/2024 7:58:24 AM Prelim Date: 03/20/2024 8:00:05 AM Sign Date: 03/20/2024 8:00:05 AM Ordering Provider: [facility]09-21-2024 Note ORIGINAL EXAMINATION: THREE XRAY VIEWS OF THE LEFT ANKLE 03/20/2024 7:32 am COMPARISON: None. HISTORY: ORDERING SYSTEM PROVIDED HISTORY: Reason for Exam: pain FINDINGS: There is a 12 mm fragment of bone from the distal end of the left fibula and displaced laterally by 5 mm. A 6 mm ossific fragment is located the tip of the medial malleolus. Posterior malleolus is intact. There is no fracture of the talus or calcaneus. IMPRESSION: Mildly displaced fracture of the lateral malleolus. Ossific fragment at the tip of the medial malleolus is consistent with a fracture of indeterminate age without significant displacement. Interpreted by: Maverick Scott MD Preliminary Report By: Maverick Scott MD Electronically signed By Maverick Scott MD Dictated Date: 03/20/2024 7:32:33 AM Prelim Date: 03/20/2024 7:35:28 AM Sign Date: 03/20/2024 7:35:28 AM Ordering Provider: [facility]09-21-2024 Note ORIGINAL EXAMINATION: ONE XRAY VIEW OF THE PELVIS 03/20/2024 7:30 am COMPARISON: None. HISTORY: ORDERING SYSTEM PROVIDED HISTORY: Reason for Exam: pain FINDINGS: There is no pelvic fracture. Sacroiliac joints and pubic symphysis have normal alignment. No fracture or dislocation of either hip is present. IMPRESSION: No acute bone abnormality. Interpreted by: Maverick Scott MD Preliminary Report By: Maverick Scott MD Electronically signed By Maverick Scott MD Dictated Date: 03/20/2024 7:31:58 AM Prelim Date: 03/20/2024 7:32:26 AM Sign Date: 03/20/2024 7:32:26 AM Ordering Provider: [facility]09-21-2024 Note ORIGINAL EXAMINATION: ONE XRAY VIEW OF THE CHEST 03/20/2024 7:28 am COMPARISON: None. HISTORY: ORDERING SYSTEM PROVIDED HISTORY: Reason for Exam: pain; trauma patient FINDINGS: The heart size is normal. There is no acute lung infiltrate or edema. No pneumothorax or pleural fluid is present. No fractures are detected. Patient has had anterior cervical disc fusion. IMPRESSION: No acute abnormality of the chest. Interpreted by: Maverick Scott MD Preliminary Report By: Maverick Scott MD Electronically signed By Maverick Scott MD Dictated Date: 03/20/2024 7:29:06 AM Prelim Date: 03/20/2024 7:29:44 AM Sign Date: 03/20/2024 7:29:44 AM Ordering Provider: [facility]08-30-2024 Telephone encounter Note* Telephone Encounter - Kiersten Krishnan MA - 02/27/2024 12:39 PM EDT Last ov- 03/04/2023 Next [facility]-03/09/2024 [id number] Miscellaneous Notes* Telephone Encounter - Kiersten Krishnan MA - 02/27/2024 12:39 PM EDT Last ov- 03/04/2023 Next ov-03/09/2024 documented in this encounterSProMedica [facility]lower [id number] Instructions* Patient Instructions* Lizbet Reyes II, OD - 02/25/2024 1:06 PM EDT Assessment and Plan H52.03 Hyperopia, bilateral (primary encounter diagnosis) H52.223 Regular astigmatism, bilateral H52.4 Presbyopia Comment: Shift in glasses power. Refit into monovision CL use (left eye near). Update glasses and recheck CL fit as needed for power. H25.13 Nuclear sclerotic cataract of both eyes Comment: Mild cataract in both eyes. Well tolerated at this time. Discussed possible future affect on daily activities to watch for. Monitor as instructed. Z98.890 Hx of LASIK Comment: Stable corneas both eyes. Monitor. I have confirmed and edited as necessary the relevant HPI, ophthalmic history, ROS, and the neuro exam findings as obtained by others. I have seen and examined Margot Mert Hutchison. I have discussed the case and the management of this patient's care with the Resident/Fellow, if applicable. I also have reviewed and agree with the assessment and plan as stated above and agree withall of its relevant components. documented in [facility] encounterMer[facility]24 NoteHNO ID: [id number] Author: LIZBET REYES II, OD Service: ? Author Type: MANUFACTURING QUALITY MANAGER Type: Progress Notes Filed: 02/25/2024 13:06 Note Text: Assessment and Plan H52.03 Hyperopia, bilateral (primary encounter diagnosis) H52.223 Regular astigmatism, bilateral H52.4 Presbyopia Comment: Shift in glasses power. Refit into monovision CL use (left eye near). Update glasses and recheck CL fit as needed for power. H25.13 Nuclear sclerotic cataract of both eyes Comment: Mild cataract in both eyes. Well tolerated at this time. Discussed possible future affect on daily activities to watch for. Monitor as instructed. Z98.890 Hx of LASIK Comment: Stable corneas both eyes. Monitor. I have confirmed and edited as necessary the relevant HPI, ophthalmic history, ROS, and the neuro exam findings as obtained by others. I have seen and examined Margot Hutchison. I have discussed the case and the management of this patient's care with the Resident/Fellow, if applicable. I also have reviewed and agree with the assessment and plan as stated above and agree with all of its relevant components.[facility]08-28-2024 History of Present illness Narrative* Lizbet Reyes II, OD - 02/25/2024 1:04 PM EDT Assessment and Plan H52.03 Hyperopia, bilateral (primary encounter diagnosis) H52.223 Regular astigmatism, bilateral H52.4 Presbyopia Comment: Shift in glasses power. Refit into monovision CL use (left eye near). Update glasses and recheck CL fit as needed for power. H25.13 Nuclear sclerotic cataract of both eyes Comment: Mild cataract in both eyes. Well tolerated at this time. Discussed possible future affect on daily activities to watch for. Monitor as instructed. Z98.890 Hx of LASIK Comment: Stable corneas both eyes. Monitor. I have confirmed and edited as necessary the relevant HPI, ophthalmic history, ROS, and the neuro exam findings as obtained by others. I have seen and examined Margot Hutchison. I have discussed the case and the management of this patient's care with the Resident/Fellow, if applicable. I also have reviewed and agree with the assessment and plan as stated above and agree withall of its relevant components. documented [place] encounterDaniel [place] [id number] Instructions* Patient Instructions* Lizbet Reyes II, OD - 11/06/2022 12:11 PM EDT Assessment and Plan H10.12 Acute atopic conjunctivitis of left eye (primary encounter diagnosis) Comment: Responding to treatment. Continue use of artificial tears four times a day until eye fullyrecovered from contact lens overwear. No contact lens use until eye has fully recovered for severaldays and then with caution. Recheck as needed. I have confirmed and edited as necessary the relevant ophthalmic history, ROS, and the neuro exam findings as obtained by others. I have seen and examined Margot Hutchison. I have discussed the case and the management of this patient's care with the Resident/Fellow, if applicable. I also have reviewed and agree with the assessment and plan as stated above and agree withall of its relevant components. Lizbet Reyes II, OD documented in this encounterMer[facility]05-[facility]23 History of Present illness Narrative* Lizbet Reyes II, OD - 11/06/2022 12:10 PM EDT Assessment and Plan H10.12 Acute atopic conjunctivitis of left eye (primary encounter diagnosis) Comment: Responding to treatment. Continue use of artificial tears four times a day until eye fullyrecovered from contact lens overwear. No contact lens use until eye has fully recovered for severaldays and then with caution. Recheck as needed. I have confirmed and edited as necessary the relevant ophthalmic history, ROS, and the neuro exam findings as obtained by others. I have seen and examined Margot Hutchison. I have discussed the case and the management of this patient's care with the Resident/Fellow, if applicable. I also have reviewed and agree with the assessment and plan as stated above and agree withall of its relevant components. Lizbet Reyes II, OD documented in this encounterMer[facility]05-08-2023 Miscellaneous Notes* Addendum Note - Allyn Reyes, OD - 11/04/2022 11:22 AM EDTAddended by: ALLYN REYES on: 11/04/2022 11:22 AM Modules accepted: Orders documented in this encounterMer[facility]05-08-2023 Instructions* Patient Instructions* Allyn Reyes, OD - 11/04/2022 11:16 AM EDT ASSESSMENT/PLAN: 1. Redness of eye, left - ICD9: 379.93, ICD10: H57.89 DDX: iritis but no cells noted. Recommended the use of artificial tears at least four times a day Return in 48 hours, sooner if problems worsen (she cannot come until in [place]) documented in this encounterMer[facility]05-08-2023 History of Present illness Narrative* Allyn Reyes, OD - 11/04/2022 11:11 AM EDT ASSESSMENT/PLAN: 1. Redness of eye, left - ICD9: 379.93, ICD10: H57.89 DDX: iritis but no cells noted. Recommended the use of artificial tears at least four times a day Return in 48 hours, sooner if problems worsen (she cannot come until in [place]) Allyn Reyes, OD I have confirmed and edited as necessary the relevant ophthalmic history, ROS, and the neuro exam findings as obtained by others. documented in this encounterMer[facility]04-21-2022 Instructions* Patient Instructions* Lizbet Reyes II, OD - 10/18/2021 12:07 PM EDT Assessment and Plan H10.11 Acute atopic conjunctivitis of right eye (primary encounter diagnosis) Comment: No contact lens found. Lash in temporal superior cul-de-sac right eye. Irritation likely due to CL removal attempts. Recommend artifical tears three times a day until eye calm again. Recheckas needed. I have confirmed and edited as necessary the relevant ophthalmic history, ROS, and the neuro exam findings as obtained by others. I have seen and examined Margot Hutchison. I have discussed the case and the management of this patient's care with the Resident/Fellow, if applicable. I also have reviewed and agree with the assessment and plan as stated above and agree withall of its relevant components. Lizbet Reyes II, OD documented in this encounterMer[facility]04-21-2022 History of Present illness Narrative* Lizbet Reyes II, OD - 10/18/2021 12:04 PM EDT Assessment and Plan H10.11 Acute atopic conjunctivitis of right eye (primary encounter diagnosis) Comment: No contact lens found. Lash in temporal superior cul-de-sac right eye. Irritation likely due to CL removal attempts. Recommend artifical tears three times a day until eye calm again. Recheckas needed. I have confirmed and edited as necessary the relevant ophthalmic history, ROS, and the neuro exam findings as obtained by others. I have seen and examined Margot Hutchison. I have discussed the case and the management of this patient's care with the Resident/Fellow, if applicable. I also have reviewed and agree with the assessment and plan as stated above and agree withall of its relevant components. Lizbet Reyes II, OD documented in this encounterMer[facility]04-05-2022 Instructions* Patient Instructions* Lizbet Reyes II, OD - 10/02/2021 10:09 AM EDT Assessment and Plan H16.8, B97.89 Viral keratitis (primary encounter diagnosis) Comment: Responding well to treatment. Continue use of artificial tears daily. No contact lens use left eye x 2 weeks then if eye feels normal can resume CL use with caution. Recheck as needed. Instruct patient to immediately report any change in condition outside of expected and discussed symptoms. I have confirmed and edited as necessary the relevant ophthalmic history, ROS, and the neuro exam findings as obtained by others. I have seen and examined Margot Mert Hutchison. I have discussed the case and the management of this patient's care with the Resident/Fellow, if applicable. I also have reviewed and agree with the assessment and plan as stated above and agree withall of its relevant components. Lizbet Reyes II, OD documented in this encounterMer[facility]04-05-2022 History of Present illness Narrative* Lizbet Reyes II, OD - 10/02/2021 10:07 AM EDT Assessment and Plan H16.8, B97.89 Viral keratitis (primary encounter diagnosis) Comment: Responding well to treatment. Continue use of artificial tears daily. No contact lens use left eye x 2 weeks then if eye feels normal can resume CL use with caution. Recheck as needed. Instruct patient to immediately report any change in condition outside of expected and discussed symptoms. I have confirmed and edited as necessary the relevant ophthalmic history, ROS, and the neuro exam findings as obtained by others. I have seen and examined Margot Mert Hutchison. I have discussed the case and the management of this patient's care with the Resident/Fellow, if applicable. I also have reviewed and agree with the assessment and plan as stated above and agree withall of its relevant components. Lizbet Reyes II, OD documented in this [facility] Instructions* Patient Instructions* Lizbet Reyes II, OD - 09/25/2021 10:44 AM EDT Assessment and Plan H16.8, B97.89 Viral keratitis (primary encounter diagnosis) Comment: Patient notes improvement. Discontinue contact lens use left eye. Discontinue use of Vigamox (patient had started). Recommend use of artificial tears 4-5 times daily. Recheck in one week. Instruct patient to immediately report any change in condition outside of expected and discussed symptoms. I have confirmed and edited as necessary the relevant ophthalmic history, ROS, and the neuro exam findings as obtained by others. I have seen and examined Margot Hutchison. I have discussed the case and the management of this patient's care with the Resident/Fellow, if applicable. I also have reviewed and agree with the assessment and plan as stated above and agree withall of its relevant components. Lizbet Reyes II, OD [facility] History of Present illness Narrative* Lizbet Reyes II, OD - 09/25/2021 10:42 AM EDT Assessment and Plan H16.8, B97.89 Viral keratitis (primary encounter diagnosis) Comment: Patient notes improvement. Discontinue contact lens use left eye. Discontinue use of Vigamox (patient had started). Recommend use of artificial tears 4-5 times daily. Recheck in one week. Instruct patient to immediately report any change in condition outside of expected and discussed symptoms. I have confirmed and edited as necessary the relevant ophthalmic history, ROS, and the neuro exam findings as obtained by others. I have seen and examined Margot Hutchison. I have discussed the case and the management of this patient's care with the Resident/Fellow, if applicable. I also have reviewed and agree with the assessment and plan as stated above and agree withall of its relevant components. Lizbet Reyes II, OD [facility] NoteHNO ID: [id number] Author: Alexander Waters MD Service: ? Author Type: Physician Type: Progress Notes Filed: 11/17/2020 9:11 AM Note Text: Alexander Waters M.D. Colon AND Rectal Surgery [address] [facility], [address] [place] [id number] SUBJECTIVE Margot Hutchison is a 55 year old White female S/p fistulotomy for anal fistula HPI He is generally feeling well still having a small amount of curtis drainage on the pad she wears, but denies any issues with incontinence. Pain is improving slowly. Review of Systems Constitutional: Negative for chills, fever and weight loss. HENT: Negative for congestion, ear pain, hearing loss, sinus pain and sore throat. Eyes: Negative for blurred vision and double vision. Respiratory: Negative for cough, shortness of breath and wheezing. Cardiovascular: Negative for chest pain, palpitations and leg swelling. Gastrointestinal: Negative for abdominal pain, constipation, diarrhea, heartburn, nausea and vomiting. Genitourinary: Negative for dysuria, frequency and urgency. Musculoskeletal: Positive for back pain, joint pain and neck pain. Skin: Negative for itching and rash. Neurological: Negative for dizziness, weakness and headaches. Endo/Heme/Allergies: Negative for environmental allergies. Does not bruise/bleed easily. Psychiatric/Behavioral: Negative for depression and memory loss. The patient is not nervous/anxious and does not have insomnia. PAST MEDICAL HISTORY Diagnosis Date - Anxiety and depression - Chronic low back pain - COPD (chronic obstructive pulmonary disease) (HCC) Mild, no treatment - Elevated cholesterol - Essential tremor - OAB (overactive bladder) - Palpitations Sees cardiology, no treatment needed - PONV (postoperative nausea and vomiting) - Prediabetes PAST SURGICAL HISTORY Procedure Laterality Date - LAMINECTOMY,LUMBAR 2004 - PAST SURGICAL HISTORY OF 2011 cervical fusion C6-C7 - PAST SURGICAL HISTORY OF Bilateral great toe fusion - PLACEMENT OF SETON 10/19/2020 Dr. Waters - REVISE MEDIAN N/CARPAL TUNNEL SURG Bilateral 2005 - SURGICAL DISCECTOMY, WITH/WITHOUT IMPLANT 2012 L4-L5 - VAGINAL HYSTERECTOMY 1998 Social History Tobacco Use - Smoking status: Current Every Day Smoker Packs/day: 0.50 Years: 1.00 Pack years: 0.50 Types: Cigarettes - Smokeless tobacco: Never Used - Tobacco comment: less than a pack a day Vaping Use - Vaping Use: current everyday user - Substances: Nicotine, Flavoring - Devices: Pre-filled or refillable cartridge Substance Use Topics - Alcohol use: Not Currently - Drug use: Never FAMILY HISTORY Problem Relation Age of Onset - Diabetes Maternal Grandmother - Heart Maternal Grandmother - Glaucoma No Family History - Detached Retina No Family History - Macular Degen No Family History - Blindness No Family History The ROS, medical, surgical, family, and social history were reviewed by Alexander Waters MD ALLERGIES Allergen Reactions - Augmentin [Amoxicil* GI Upset - Nicotine Hives Nicotine patchs - Antifungal - Imidaz* Rash Patient states she is allergic to ALL anti-fungal agents Current Outpatient Medications Medication Sig - mirabegron (MYRBETRIQ ORAL) Take by mouth. - calcium carbonate (CALTRATE 600 ORAL) Take by mouth. - traZODone HCl 300 mg tablet Patient states she is taking 450 mg hs - clonazePAM (KLONOPIN) 0.5 mg tablet TAKE 1/2 TABLET BY MOUTH TWICE A DAY NEEDED - amitriptyline (ELAVIL) 50 mg tablet Take 50 mg by mouth daily at bedtime. - VRAYLAR 1.5 mg capsule Take 1.5 mg by mouth once daily. - DULoxetine (CYMBALTA) 60 mg capsule Take 60 mg by mouth once daily. - rosuvastatin (CRESTOR) 10 mg tablet Take 10 mg by mouth once daily. - tiZANidine HCl 4 mg capsule three times daily. - topiramate (TOPAMAX) 25 mg tablet Take 25 mg by mouth once daily. - primidone (MYSOLINE) 50 mg tablet TAKE 3 TABLETS BY MOUTH 3 TIMES A DAY - ezetimibe (ZETIA) 10 mg tablet (Patient not taking: Reported on 10/27/2020 ) - omeprazole (PRILOSEC) 20 mg capsule Take 20 mg by mouth once daily. (Patient not taking: Reported on 10/27/2020 ) - meloxicam (MOBIC) 7.5 mg tablet (Patient not taking: Reported on 10/27/2020 ) No current facility-administered medications for this visit. OBJECTIVE BP 118/78 (BP Site: Left Arm, BP Position: Sitting, BP Cuff Size: Large Adult) Pulse 95 Wt 78 kg (172 lb) BMI 25.40 kg/m? BMI 25.40 kg/(m2) Physical Exam Abdominal: General: There is no distension. Palpations: Abdomen is soft. Tenderness: There is no abdominal tenderness. Neurological: Mental Status: She is alert and oriented to person, place, and time. Psychiatric: Mood and Affect: Affect normal. Perineum: Well-healing left anterior fistulotomy site with granulation tissue in the wound Hemoglobin (g/dL) Date Value 04/28/2013 14.3 Hematocrit (%) Date Value 04/28/2013 43 (more content not included)...[facility] 11-09-2020 NoteHNO ID: [id number] Author: Rabia Moyer RN Service: ? Author Type: Registered Nurse Type: Nursing Progress Note Filed: 11/09/2020 2:15 PM Note Text: Pt dressed self. Stable gait.[facility]05-13-2021 NoteHNO ID: [id number] Author: Odilon Sinclair APRN.COTTON PICKER OPERATOR Service: Anesthesiology Author Type: Nurse Preschool Adviser Type: Anesthesia Procedure Notes Filed: 11/09/2020 12:41 PM Note Text: ANESTHESIOLOGY PROCEDURE NOTE Airway General Information Procedure Start Time/Medication Administration: 11/09/2020 12:26 PM Patient location during procedure: OR Timeout Performed Pre-procedure: timeout performed Consent Obtained: Yes Patient identity confirmed: arm band Staffing COTTON PICKER OPERATOR: Odilon Sinclair APRN.COTTON PICKER OPERATOR Indications and Patient Condition Preoxygenated: yes Patient position: sniffing Indications for airway management: anesthesia anesthesia circuit Method: asleep Final Airway Details Final airway type: endotracheal airway Final Endotracheal Airway: ETT Cuffed: yes Successful intubation technique: direct laryngoscopy Devices used: intubating stylet Endotracheal tube insertion site: oral Blade: Riki Blade size: #4 ETT size (mm): 7.0 Measured from: lips Measurement (cm): 22 Placement verified by: chest auscultation and capnometry Cormack-Lehane Classification: grade I - full view of glottis Number of attempts at approach: 1 SIGNATURE: Odilon Sinclair APRN.COTTON PICKER OPERATOR PATIENT NAME: Margot Hutchison DATE: November 09, 2020 TIME: 12:40 PM CSN: [id number] NoteHNO ID: [id number] Author: Alexander Waters MD Service: ? Author Type: Physician Type: Progress Notes Filed: 10/27/2020 11:31 AM Note Text: Alexander Waters M.D. Colon AND Rectal Surgery [address] [facility], [address] [place] [id number] SUBJECTIVE Margot Hutchison is a 55 year old White female status post anal skin tag removal and seton placement HPI She is generally feeling okay, mild to moderate pain well controlled with oral medication. She denies nausea or vomiting. Review of Systems Constitutional: Negative for chills, fever and weight loss. HENT: Negative for congestion, ear pain, hearing loss, sinus pain and sore throat. Eyes: Negative for blurred vision, double vision and pain. Respiratory: Negative for cough, shortness of breath and wheezing. Cardiovascular: Negative for chest pain, palpitations and leg swelling. Gastrointestinal: Negative for abdominal pain, constipation, diarrhea, heartburn, nausea and vomiting. Genitourinary: Negative for dysuria, frequency and urgency. Musculoskeletal: Negative for back pain, joint pain and neck pain. Skin: Negative for itching and rash. Neurological: Positive for weakness. Negative for dizziness and headaches. Endo/Heme/Allergies: Negative for environmental allergies. Does not bruise/bleed easily. Psychiatric/Behavioral: Negative for depression and memory loss. The patient is not nervous/anxious and does not have insomnia. PAST MEDICAL HISTORY Diagnosis Date - Anxiety and depression - Chronic low back pain - COPD (chronic obstructive pulmonary disease) (HCC) Mild, no treatment - Elevated cholesterol - Essential tremor - OAB (overactive bladder) - Palpitations Sees cardiology, no treatment needed - PONV (postoperative nausea and vomiting) - Prediabetes PAST SURGICAL HISTORY Procedure Laterality Date - LAMINECTOMY,LUMBAR 2004 - PAST SURGICAL HISTORY OF 2011 cervical fusion C6-C7 - PAST SURGICAL HISTORY OF Bilateral great toe fusion - PLACEMENT OF SETON 10/19/2020 Dr. Waters - REVISE MEDIAN N/CARPAL TUNNEL SURG Bilateral 2005 - SURGICAL DISCECTOMY, WITH/WITHOUT IMPLANT 2012 L4-L5 - VAGINAL HYSTERECTOMY 1998 Social History Tobacco Use - Smoking status: Current Every Day Smoker Packs/day: 0.50 Years: 1.00 Pack years: 0.50 Types: Cigarettes - Smokeless tobacco: Never Used - Tobacco comment: less than a pack a day Vaping Use - Vaping Use: current everyday user - Substances: Nicotine, Flavoring - Devices: Pre-filled or refillable cartridge Substance Use Topics - Alcohol use: Not Currently - Drug use: Never FAMILY HISTORY Problem Relation Age of Onset - Diabetes Maternal Grandmother - Heart Maternal Grandmother - Glaucoma No Family History - Detached Retina No Family History - Macular Degen No Family History - Blindness No Family History The ROS, medical, surgical, family, and social history were reviewed by Alexander Waters MD ALLERGIES Allergen Reactions - Augmentin [Amoxicil* GI Upset - Nicotine Hives Nicotine patchs - Antifungal - Imidaz* Rash Patient states she is allergic to ALL anti-fungal agents Current Outpatient Medications Medication Sig - mirabegron (MYRBETRIQ ORAL) Take by mouth. - calcium carbonate (CALTRATE 600 ORAL) Take by mouth. - traZODone HCl 300 mg tablet Patient states she is taking 450 mg hs - clonazePAM (KLONOPIN) 0.5 mg tablet TAKE 1/2 TABLET BY MOUTH TWICE A DAY NEEDED - amitriptyline (ELAVIL) 50 mg tablet Take 50 mg by mouth daily at bedtime. - VRAYLAR 1.5 mg capsule Take 1.5 mg by mouth once daily. - DULoxetine (CYMBALTA) 60 mg capsule Take 60 mg by mouth once daily. - rosuvastatin (CRESTOR) 10 mg tablet Take 10 mg by mouth once daily. - tiZANidine HCl 4 mg capsule three times daily. - topiramate (TOPAMAX) 25 mg tablet Take 25 mg by mouth once daily. - primidone (MYSOLINE) 50 mg tablet TAKE 3 TABLETS BY MOUTH 3 TIMES A DAY - ezetimibe (ZETIA) 10 mg tablet (Patient not taking: Reported on 10/27/2020 ) - omeprazole (PRILOSEC) 20 mg capsule Take 20 mg by mouth once daily. (Patient not taking: Reported on 10/27/2020 ) - meloxicam (MOBIC) 7.5 mg tablet (Patient not taking: Reported on 10/27/2020 ) No current facility-administered medications for this visit. OBJECTIVE BP 158/80 (BP Site: Left Arm, BP Position: Sitting, BP Cuff Size: Large Adult) Pulse 97 Ht 175.3 cm (5' 9) Wt 74.8 kg (165 lb) BMI 24.37 kg/m? BMI 24.37 kg/(m2) Physical Exam Abdominal: General: There is no distension. Palpations: Abdomen is soft. Tenderness: There is no abdominal tenderness. Neurological: Mental Status: She is alert and oriented to person, place, and time. Psychiatric: Mood and Affect: Mood and affect normal. Judgment: Judgment normal. Hemoglobin (g/dL) Date Value 04/28/2013 14.3 Hematocrit (%) Date Value 04/28/2013 43.0 WBC (thou/cmm) Date Value (more content not included)...[facility]04-22-2021 NoteHNO ID: [id number] Author: Rabia (Rn) Comfort, RN Service: ? Author Type: Registered Nurse Type: Nursing Progress Note Filed: 10/19/2020 3:30 PM Note Text: Pt dressed self. Ambulated to bathroom. Stable gait.[facility] 10-19-2020 NoteHNO ID: [id number] Author: Rabia TrianaRn) Comfort, RN Service: ? Author Type: Registered Nurse Type: Nursing Progress Note Filed: 10/19/2020 3:12 PM Note Text: Dr. Waters in to see pt.[facility]04-22-2021 NoteHNO ID: [id number] Author: Odilon TrianaRn) ASHLI Li Service: ? Author Type: Registered Nurse Type: Nursing Progress Note Filed: 10/19/2020 2:29 PM Note Text: Vessel Loop used for Seton placement at 1415 left anterior anus.[facility]04-22-2021 NoteHNO ID: [id number] Author: Margot Carey Service: ? Author Type: Nurse Preschool Adviser Type: Anesthesia Procedure Notes Filed: 10/19/2020 1:46 PM Note Text: ANESTHESIOLOGY PROCEDURE NOTE Airway General Information Procedure Start Time/Medication Administration: 10/19/2020 1:34 PM Patient location during procedure: OR Patient identity confirmed: arm band, care project manager/team coach and patient Staffing Anesthesiologist: Rachel Arroyo COTTON PICKER OPERATOR: Margot Carey Performed by: COTTON PICKER OPERATOR Indications and Patient Condition Preoxygenated: yes Patient position: sniffing Manual In-Line Stabilization: No Difficult Mask: No Indications for airway management: anesthesia and airway protection anesthesia circuit Method: asleep Cricoid Pressure: No Final Airway Details Final airway type: endotracheal airway Final Endotracheal Airway: ETT Cuffed: yes Successful intubation technique: direct laryngoscopy Endotracheal tube insertion site: oral Blade: Riki Blade size: #3 ETT size (mm): 7.0 Measured from: lips Measurement (cm): 21 Placement verified by: chest auscultation and capnometry Cormack-Lehane Classification: grade I - full view of glottis Number of attempts at approach: 1 Failed airway: no Unrecognized esophageal intubation: no Airway not difficult SIGNATURE: Margot Carey APRN.COTTON PICKER OPERATOR PATIENT NAME: Margot Hutchison DATE: October 19, 2020 TIME: 1:45 PM CSN: [id number] CenterConsult note Author George Malone [facility] Note Date/Time November 15, 2024 10:08 am [facility] Medical Records Department [address] [place] [address] Pre-Anesthesia Evaluation 11/15/24 1007 MR#: [id number] Acct: [id number] Name: MARGOT HUTCHISON Rep #:[id number] : 1965 59 From: George Malone MD PCP: Dr. Juan Chan, DO Status:RE G SDC Y Race: C Location: [place] [address] ASA Classification* ASA Classification ASA Classification: 2 Assessment & Plan Anesthesia* Anesthesia Assessment Anesthesia Assessment: Discussed sedation and/or anesthesia options, risks, benefits, and alternatives with patient/parents/legal guardian/POA. Questions invited. The patient/parents/legal guardian/POA seems to understand and agrees to proceedwith anesthesia plan. Reviewed the physical assessment, medical history, allergy history and patient home medications list prior to surgery/procedure/anesthetic and documented any changes. Performed airway and anesthesia risk assessments. Anesthesia Type Anesthesia Type: MAC Anesthesia Focused Assessment* Airway Assessment Mouth opens: >3 cm Mallampati Score: II Focused Labs Anesthesia Preop lab: CBC WBC 14.7 K/mm3 (4.4-11.0) H 03/25/24 22:37 4 RBC 4.72 M/mm3 (4.2-5.4) 03/25/24 22:37 03/25/24 Hgb 13.9 g/dL (12.0-15.0) 03/25/24 22:37 03/25/24 Hct 42.7 % (37-47) 03/25/24 22:37 03/25/24 Plt Count 269 K/mm3 (150-450) 03/25/24 22:37 03/25/24 CHEMISTRY Potassium 3.7 mmol/L (3.5-5.1) 03/25/24 22:37 03/25/24 Sodium 139 mmol/L (136-145) 03/25/24 22:37 03/25/24 BUN 18 mg/dL (7-18) 03/25/24 22:37 03/25/24 Creatinine 0.70 mg/dL (0.55-1.02) 03/25/24 22:37 03/25/24 Glucose 124 mg/dL (74-106) H 03/25/24 22:37 03/25/24 POC Glucose 105 mg/dL (70-110) 12/05/16 07:27 12/05/16 TSH 1.13 uIU/mL (0.358-3.74) 04/24/17 12:56 COAG Pre-Assessment Diagnosis/Proposed Procedure Planned Operative Procedure(s): CAUDAL EPIDURAL STEROID INJECTION UNDER FLUOROSCOPY Anesthesia History Anesthesia History - technical support intern: Anesthesia History - technical support intern Hx Hospitalization No 11/12/24 08:49 Any Problems With Anesthesia Yes: N,V 11/12/24 08:49 Cholinesterase deficiency No 11/12/24 08:49 You/Your Family Experience No 11/12/24 08:49 fever (hyperthermia) with Relationship Recent Exposure to Contagious No 08/20/21 10:51 Disease Does patient have nerve No 11/12/24 08:49 stimulator Patient instructed to have device shut off --Does patient have Pacemaker or ICD? When Was Last Pacemaker Check QUESTION #4 FULL TEXT: You/Your Family Experience fever (hyperthermia) with Anesthesia Last Oral Intake Last Oral intake: Last Oral Intake NPO since Meds taken in AM with sips of water? Meds patient instructed to take am of surgery PONV PONV - technical support intern: PONV - technical support intern Female Yes 11/12/24 08:49 HX of Motion Sickness No 11/12/24 08:49 HX of N/V After Surgery Yes 11/12/24 08:49 Non-Smoker No 11/12/24 08:49 Duration of Surgery greater No 11/12/24 08:49 than 60 minutes Number of Risk Factors 2 11/12/24 08:49 PONV Score Moderate Risk 11/12/24 08:49 Height & Weight Height & Weight: Anesthesia: Height & Weight Height 5 ft 9 in 03/26/24 18:10 Respiratory Assessment Respiratory Assessment - technical support intern: Respiratory Tract Infection Hx - technical support intern Hx Respiratory Tract Infection No 11/12/24 08:49 STOP Sleep Apnea STOP Sleep Apnea - technical support intern: STOP Sleep Apnea - technical support intern Hx Hypertension No 11/12/24 08:49 Hx Sleep Apnea No 11/12/24 08:49 CPAP No 08/20/21 12:10 BIPAP Do you snore loudly (louder No 11/12/24 08:49 than talking or can be heard Do you often feel tired/ Yes 11/12/24 08:49 fatigued/ sleepy during daytime? Has anyone observed you stop No 11/12/24 08:49 breathing during sleep? STOP Results Negative 11/12/24 08:49 QUESTION #5 FULL TEXT : Do you snore loudly (louder than talking or can be heard through closed doors)? Tobacco Use History Tobacco Use History - technical support intern: Tobacco Use History - technical support intern Tobacco Use Smoking Status Current every day smoker 11/12/24 08:49 Hx Tobacco Use Yes 11/12/24 08:49 Years Smoking Packs Smoked per Day Smoking Cessation Date was within the last 15 years Hx Smoking Cessation Date Hx Smoking Cessation Counseling Hematologic Medial History Hematologic Hx - technical support intern: Hematologic Medical Hx - maxillofacial surgeon Hx of Blood Transfusion No 11/12/24 08:49 Hx of Transfusion in last 3 No 11/12/24 08:49 Months Date of Last Transfusion (if within last 3 months) Ever experience any problems No 11/12/24 08:49 with transfusion(s)? Specify any problems Hx of Preganancy in last 3 No 11/12/24 08:49 Months Nurse Filling Out Transfusion DSCHRIBER 11/12/24 08:49 & Questions: Date: 11/12/24 11/12/24 08:49 Time: 08:51 11/12/24 08:49 Patient unable to answer at this time (ie. confused, unrespo /Reproduction History /Reproductive History - technical support intern: /Reproductive Hx- technical support intern Hx Now No 11/12/24 08:49 Gestational Age (in weeks): EDC: Hx Hx Para Hx Section SAB No 11/12/24 08:49 PFSH Medical History Wears glasses Cancer Pulmonary embolism Restless legs Syncope COPD (chronic obstructive pulmonary disease) History of pain when walking History of edema Pain Impingement of left shoulder Left shoulder pain Wears contact lenses Depression Anxiety Diabetes Arthritis High cholesterol Back pain Injury of head and neck Tremor Heartburn Smoker Shortness of breath on exertion History of echocardiogram Hx of tilt table evaluation History of stress test Cardiology follow-up encounter Perirectal abscess Pure hypercholesterolemia Chronic low back pain HLD (hyperlipidemia) Syncope and collapse Chest pain Home Medications ?Medication ?Instructions ?Recorded ?Last Taken ?Type duloxetine 60 mg capsule,delayed 60 mg PO DAILY 03/15/16 History release amitriptyline 50 mg tablet 100 mg PO QHS 09/10/17 Unkn own History clonazepam 0.5 mg tablet 0.5 mg PO BID 02/22/19 Unkno wn History cariprazine 1.5 mg capsule 1.5 mg PO DAILY DEPRESSION 01/21/20 Unknown History (Vraylar) primidone 50 mg tablet 100 mg PO DAILY 01/21/20 Unk nown History topiramate 50 mg tablet 25 mg PO BID 01/21/20 Unknow n History cholecalciferol (vitamin D3) 25 25 mcg PO DAILY Unknown History mcg (1,000 unit) capsule mecobalamin (vitamin B12) 1,000 1,000 mcg PO FR Unknown History mcg lozenges ondansetron 4 mg disintegrating 4 mg PO Q6H PRN nausea and 03/26/24 Unknown Rx tablet vomiting #14 tabs apixaban 5 mg tablet (Eliquis) 5 mg PO BID 07/20/24 History orphenadrine citrate 100 mg 100 mg PO BID 07/20/24 Unk nown History tablet,extended release omeprazole 20 mg capsule,delayed 20 mg PO DAILY Unknown History release oxycodone 5 mg tablet 5 mg PO TID PRN pain 5 Unknown History rosuvastatin 40 mg tablet 40 mg PO QHS 11/12/24 Unknow n History trazodone 300 mg tablet 450 mg PO QHS 11/12/24 Unkno wn History Allergy/AdvReac Type Severity Reaction Status Date / Time cyclobenzaprine (From Allergy Intermediate migraine Verified 11/12/24 08:43 Flexeril) metaxalone Allergy Anaphylaxis Verified 11/12/24 08:43 amoxicillin (From Augmentin) AdvReac Nausea Verified 11/12/24 08:43 clavulanic acid (From AdvReac Nausea Verified 11/12/24 08:43 Augmentin) ANTI FUNGALS Allergy Rash Uncoded 07/20/24 09:30 Family History Mother Anxiety and depression Grandfather CVA (cerebral vascular accident) Hypertension Grandmother Diabetes Surgical History Hx of partial nephrectomy History of ankle surgery (~03/2024) History of carpal tunnel surgery Status post simin-rectal abscess repair, follow-up exam History of surgical removal of ganglion cyst H/O laminectomy H/O: hysterectomy (~1979) cervical fusion (~06/2010) Social History Smoking Status: Current every day smoker tobacco type: cigarettes Electronic Cigarette Use: with nicotine alcohol intake: current substance use type: does not use caffeine: Yes Type: tea Number of servings: 2 what type of physical activity do you participate in: other details: riding horses seatbelt use: sometimes do you feel safe at home: Yes Review of Systems (Anesthesia) ROS Narrative System reviewed and no additional complaints, except as documented. 11/15/24 1008 <Electronically signed by George Malone MD > Date _ George Malone MD Cosigner Signature: Date CC: ~ Signed [facility] Work Phone: Evaluation + Plan note Future Appointments Appointment Date:04/20/2024 01:30:00 PM Scheduled Provider:HAWA SINGLETARY MD Location:[facility]UR[facility] Appointment Type:NS OV Future Scheduled Tests Radiology* XR Spine Lumbar AP/LAT 04/20/24 [facility] evaluation + Plan note Future Appointments Appointment Date:05/18/2024 10:30:00 AM Scheduled Provider:HAWA SINGLETARY MD Location:NEUROS Appointment Type:NS OV Future Scheduled Tests Radiology* XR Spine Lumbar AP/LAT 05/18/24 [facility] Evaluation + Plan note Future Appointments Appointment Date:06/08/2024 10:15:00 AM Scheduled Provider:HAWA SINGLETARY MD Location:[facility] Appointment Type:NS OV [facility] evaluation + Plan note Future Appointments Appointment Date:07/06/2024 10:00:00 AM Scheduled Provider:HAWA SINGLETARY MD Location:[facility] Appointment Type:NS OV [facility] evaluation note* Diagnosis Viral keratitis- Primary Unspecified keratitis documented in this encounter [facility] note* Diagnosis Viral keratitis- Primary Unspecified keratitis documented in this encounter [facility] note* Diagnosis Acute atopic conjunctivitis of right eye- Primary Acute atopic conjunctivitis documented in this encounter [facility] noteNo assessment information [facility]* Diagnosis Redness of eye, left- Primary Redness or discharge of eye documented in this encounter [facility] note* Diagnosis Acute atopic conjunctivitis of left eye- Primary Acute atopic conjunctivitis documented in this encounter [facility] note* Diagnosis Onset Date Resolution Status Impingement of left shoulder acute Left shoulder pain [facility] Work Phone: evaluation note* Diagnosis Hyperopia, bilateral- Primary Regular astigmatism, bilateral Presbyopia Nuclear sclerotic cataract of both eyes Senile nuclear sclerosis Hx of LASIK Other states following surgery of eye and adnexa documented in this encounter [facility] note* Diagnosis Renal mass, right- Primary Unspecified disorder of kidney and ureter documented in this encounter [facility] note* Diagnosis Renal mass, right Unspecified disorder of kidney and ureter [facility]* Diagnosis 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 [facility]* Diagnosis Right renal mass- Primary Unspecified disorder of kidney and ureter Renal mass Unspecified disorder of kidney and ureter Cyst of kidney, acquired Acquired cyst of kidney Right renal mass Unspecified disorder of kidney and ureter Renal mass Unspecified disorder of kidney and ureter documented [facility]* Diagnosis Malignant neoplasm of right kidney (HCC)- Primary [facility] this [facility]* Diagnosis Blurred vision, left eye- Primary Other specified visual disturbances [facility] Diagnosis Malignant neoplasm of right kidney (HCC) documented [facility]* Diagnosis Malignant neoplasm of right kidney (HCC)- Primary [facility]* Diagnosis Onset Date Resolution Status Admit Date Abdominal bloating noneactive December [id number] 9:58am [facility] Work Phone: Hospital course Narrative No data available for this section [facility] Hospital Discharge instructions No data available for this section [facility] Instructions* Name Dates Details How to Access Health Informa tion Online using Patient [employer] and [employer] Apps Indication:Smoker Start:22-Sep-2020 Instruction Type:Patient Education Patient Instructions Indication:Smoker Start:22-Sep-2020 Instruction Type:Provider Instructions for Treatment How to Access Health Informa tion Online using Patient [employer] and [employer] Apps Indication:Nonsmoker Start:21-Jun-2020 Instruction Type:Patient Education Patient Instructions Indication:Nonsmoker Start:21-Jun-2020 Instruction Type:Provider Instructions for Treatment How to Access Health Informa tion Online using Patient Portal and [employer] Apps Indication:Nonsmoker Start:15-Jun-2020 Instruction Type:Patient Education Patient Instructions Indication:Nonsmoker Start:15-Jun-2020 Instruction Type:Provider Instructions for Treatment How to access health informa tion online Indication:BMI 24.0-24.9, adult Start:23-Mar-2020 Instruction Type:Patient Education How to access health informa tion online - Detail Indication:BMI 24.0-24.9, adult Start:23-Mar-2020 Instruction Type:Patient Education Patient Instructions Indication:BMI 24.0-24.9, adult Start:23-Mar-2020 Instruction Type:Provider Instructions for Treatment How to access health informa tion online Indication:Diabetes mellitus type II, controlled Start:08-Dec-2019 Instruction Type:Patient Education How to access health informa tion online - Detail Indication:Diabetes mellitus type II, controlled Start:08-Dec-2019 Instruction Type:Patient Education Patient Instructions Indication:Diabetes mellitus type II, controlled Start:08-Dec-2019 Instruction Type:Provider Instructions for Treatment How to access health informa tion online Indication:Diabetes mellitus type II, controlled Start:01-Sep-2019 Instruction Type:Patient Education How to access health informa tion online - Detail Indication:Diabetes mellitus type II, controlled Start:01-Sep-2019 Instruction Type:Patient Education Patient Instructions Indication:Diabetes mellitus type II, controlled Start:01-Sep-2019 Instruction Type:Provider Instructions for Treatment How to access health informa tion online Indication:Diabetes mellitus type II, controlled Start:29-Apr-2019 Instruction Type:Patient Education How to access health informa tion online - Detail Indication:Diabetes mellitus type II, controlled Start:29-Apr-2019 Instruction Type:Patient Education Patient Instructions Indication:Diabetes mellitus type II, controlled Start:29-Apr-2019 Instruction Type:Provider Instructions for Treatment How to access health informa tion online Indication:BMI 22.0-22.9, adult Start:24-Dec-2018 Instruction Type:Patient Education How to access health informa tion online - Detail Indication:BMI 22.0-22.9, adult Start:24-Dec-2018 Instruction Type:Patient Education Patient Instructions Indication:BMI 22.0-22.9, adult Start:24-Dec-2018 Instruction Type:Provider Instructions for Treatment How to access health informa tion online Indication:Smoker Start:14-May-2018 Instruction Type:Patient Education How to access health informa tion online - Detail Indication:Smoker Start:14-May-2018 Instruction Type:Patient Education Patient Instructions Indication:Smoker Start:14-May-2018 Instruction Type:Provider Instructions for Treatment How to access health informa tion online Indication:Smoker Start:16-Apr-2018 Instruction Type:Patient Education How to access health informa tion online - Detail Indication:Smoker Start:16-Apr-2018 Instruction Type:Patient Education Patient Instructions Indication:Smoker Start:16-Apr-2018 Instruction Type:Provider Instructions for Treatment How to access health informa tion online Indication:Nonsmoker Start:17-Nov-2017 Instruction Type:Patient Education How to access health informa tion online - Detail Indication:Nonsmoker Start:17-Nov-2017 Instruction Type:Patient Education Patient Instructions Indication:Nonsmoker Start:17-Nov-2017 Instruction Type:Provider Instructions for Treatment How to access health informa tion online Indication:Nonsmoker Start:03-Nov-2017 Instruction Type:Patient Education How to access health informa tion online - Detail Indication:Nonsmoker Start:03-Nov-2017 Instruction Type:Patient Education Patient Instructions Indication:Nonsmoker Start:03-Nov-2017 Instruction Type:Provider Instructions for Treatment Patient Instructions Indication:Nonsmoker Start:03-Nov-2017 Instruction Type:Provider Instructions for Treatment How to access health informa tion online Indication:BMI 25.0-25.9,adult Start:27-Oct-2017 Instruction Type:Patient Education How to access health informa tion online - Detail Indication:BMI 25.0-25.9,adult Start:27-Oct-2017 Instruction Type:Patient Education Patient Instructions Indication:BMI 25.0-25.9,adult Start:27-Oct-2017 Instruction Type:Provider Instructions for Treatment How to access health informa tion online Indication:BMI 25.0-25.9,adult Start:06-Mar-2017 Instruction Type:Patient Education How to access health informa tion online - Detail Indication:BMI 25.0-25.9,adult Start:06-Mar-2017 Instruction Type:Patient Education Patient Instructions Indication:BMI 25.0-25.9,adult Start:06-Mar-2017 Instruction Type:Provider Instructions for Treatment How to access health informa tion online Indication:Nasal congestion Start:09-Oct-2016 Instruction Type:Patient Education How to access health informa tion online - Detail Indication:Nasal congestion Start:09-Oct-2016 Instruction Type:Patient Education Patient Instructions Indication:Nasal congestion Start:09-Oct-2016 Instruction Type:Provider Instructions for Treatment How to access health informa tion online Indication:Need for prophylactic vaccination and inoculation against influenza Start:26-Mar-2016 Instruction Type:Patient Education How to access health informa tion online - Detail Indication:Need for prophylactic vaccination and inoculation against influenza Start:26-Mar-2016 Instruction Type:Patient Education Patient Instructions Indication:Need for prophylactic vaccination and inoculation against influenza Start:26-Mar-2016 Instruction Type:Provider Instructions for Treatment How to access health informa tion online - Detail Indication:Elevated fasting glucose Start:21-Jun-2015 Instruction Type:Patient Education How to access health informa tion online - Detail Indication:Elevated fasting glucose Start:21-Jun-2015 Instruction Type:Patient Education Patient Instructions Indication:Elevated fasting glucose Start:21-Jun-2015 Instruction Type:Provider Instructions for Treatment How to access health informa tion online Indication:Annual physical exam Start:29-Dec-2014 Instruction Type:Patient Education How to access health informa tion online - Detail Indication:Annual physical exam Start:29-Dec-2014 Instruction Type:Patient Education Patient Instructions Indication:Annual physical exam Start:29-Dec-2014 Instruction Type:Provider Instructions for Treatment Patient Instructions Indication:Vertigo Start:14-Nov-2014 Instruction Type:Provider Instructions for Treatment Patient Instructions Indication:Cough Start:25-Aug-2014 Instruction Type:Provider Instructions for Treatment Patient Instructions Indication:Dysthymic Start:04-Jul-2014 Instruction Type:Provider Instructions for Treatment Patient Instructions Indication:Dysthymic Start:29-Sep-2013 Instruction Type:Provider Instructions for Treatment [facility]; [facility] Work Phone: Instructions* Name Dates Details Patient Instructions Indication:Smoker Start:07-Jun-2021 Instruction Type:Provider Instructions for Treatment How to Access Health Informa tion Online using Patient Portal and [employer] Apps Indication:Smoker Start:07-Jun-2021 Instruction Type:Patient Education Patient Instructions Indication:Smoker Start:01-Jun-2021 Instruction Type:Provider Instructions for Treatment How to Access Health Informa tion Online using Patient Portal and [employer] Apps Indication:Smoker Start:01-Jun-2021 Instruction Type:Patient Education Patient Instructions Indication:BMI 26.0-26.9,adult Start:26-Jan-2021 Instruction Type:Provider Instructions for Treatment How to Access Health Informa tion Online using Patient Portal and [employer] Apps Indication:BMI 26.0-26.9,adult Start:26-Jan-2021 Instruction Type:Patient Education How to Access Health Informa tion Online using Patient Portal and [employer] Apps Indication:Smoker Start:22-Sep-2020 Instruction Type:Patient Education Patient Instructions Indication:Smoker Start:22-Sep-2020 Instruction Type:Provider Instructions for Treatment How to Access Health Informa tion Online using Patient Portal and [employer] Apps Indication:Nonsmoker Start:21-Jun-2020 Instruction Type:Patient Education Patient Instructions Indication:Nonsmoker Start:21-Jun-2020 Instruction Type:Provider Instructions for Treatment How to Access Health Informa tion Online using Patient Portal and [employer] Apps Indication:Nonsmoker Start:15-Jun-2020 Instruction Type:Patient Education Patient Instructions Indication:Nonsmoker Start:15-Jun-2020 Instruction Type:Provider Instructions for Treatment How to access health informa tion online Indication:BMI 24.0-24.9, adult Start:23-Mar-2020 Instruction Type:Patient Education How to access health informa tion online - Detail Indication:BMI 24.0-24.9, adult Start:23-Mar-2020 Instruction Type:Patient Education Patient Instructions Indication:BMI 24.0-24.9, adult Start:23-Mar-2020 Instruction Type:Provider Instructions for Treatment How to access health informa tion online Indication:Diabetes mellitus type II, controlled Start:08-Dec-2019 Instruction Type:Patient Education How to access health informa tion online - Detail Indication:Diabetes mellitus type II, controlled Start:08-Dec-2019 Instruction Type:Patient Education Patient Instructions Indication:Diabetes mellitus type II, controlled Start:08-Dec-2019 Instruction Type:Provider Instructions for Treatment How to access health informa tion online Indication:Diabetes mellitus type II, controlled Start:01-Sep-2019 Instruction Type:Patient Education How to access health informa tion online - Detail Indication:Diabetes mellitus type II, controlled Start:01-Sep-2019 Instruction Type:Patient Education Patient Instructions Indication:Diabetes mellitus type II, controlled Start:01-Sep-2019 Instruction Type:Provider Instructions for Treatment How to access health informa tion online Indication:Diabetes mellitus type II, controlled Start:29-Apr-2019 Instruction Type:Patient Education How to access health informa tion online - Detail Indication:Diabetes mellitus type II, controlled Start:29-Apr-2019 Instruction Type:Patient Education Patient Instructions Indication:Diabetes mellitus type II, controlled Start:29-Apr-2019 Instruction Type:Provider Instructions for Treatment How to access health informa tion online Indication:BMI 22.0-22.9, adult Start:24-Dec-2018 Instruction Type:Patient Education How to access health informa tion online - Detail Indication:BMI 22.0-22.9, adult Start:24-Dec-2018 Instruction Type:Patient Education Patient Instructions Indication:BMI 22.0-22.9, adult Start:24-Dec-2018 Instruction Type:Provider Instructions for Treatment How to access health informa tion online Indication:Smoker Start:14-May-2018 Instruction Type:Patient Education How to access health informa tion online - Detail Indication:Smoker Start:14-May-2018 Instruction Type:Patient Education Patient Instructions Indication:Smoker Start:14-May-2018 Instruction Type:Provider Instructions for Treatment How to access health informa tion online Indication:Smoker Start:16-Apr-2018 Instruction Type:Patient Education How to access health informa tion online - Detail Indication:Smoker Start:16-Apr-2018 Instruction Type:Patient Education Patient Instructions Indication:Smoker Start:16-Apr-2018 Instruction Type:Provider Instructions for Treatment How to access health informa tion online Indication:Nonsmoker Start:17-Nov-2017 Instruction Type:Patient Education How to access health informa tion online - Detail Indication:Nonsmoker Start:17-Nov-2017 Instruction Type:Patient Education Patient Instructions Indication:Nonsmoker Start:17-Nov-2017 Instruction Type:Provider Instructions for Treatment How to access health informa tion online Indication:Nonsmoker Start:03-Nov-2017 Instruction Type:Patient Education How to access health informa tion online - Detail Indication:Nonsmoker Start:03-Nov-2017 Instruction Type:Patient Education Patient Instructions Indication:Nonsmoker Start:03-Nov-2017 Instruction Type:Provider Instructions for Treatment Patient Instructions Indication:Nonsmoker Start:03-Nov-2017 Instruction Type:Provider Instructions for Treatment How to access health informa tion online Indication:BMI 25.0-25.9,adult Start:27-Oct-2017 Instruction Type:Patient Education How to access health informa tion online - Detail Indication:BMI 25.0-25.9,adult Start:27-Oct-2017 Instruction Type:Patient Education Patient Instructions Indication:BMI 25.0-25.9,adult Start:27-Oct-2017 Instruction Type:Provider Instructions for Treatment How to access health informa tion online Indication:BMI 25.0-25.9,adult Start:06-Mar-2017 Instruction Type:Patient Education How to access health informa tion online - Detail Indication:BMI 25.0-25.9,adult Start:06-Mar-2017 Instruction Type:Patient Education Patient Instructions Indication:BMI 25.0-25.9,adult Start:06-Mar-2017 Instruction Type:Provider Instructions for Treatment How to access health informa tion online Indication:Nasal congestion Start:09-Oct-2016 Instruction Type:Patient Education How to access health informa tion online - Detail Indication:Nasal congestion Start:09-Oct-2016 Instruction Type:Patient Education Patient Instructions Indication:Nasal congestion Start:09-Oct-2016 Instruction Type:Provider Instructions for Treatment How to access health informa tion online Indication:Need for prophylactic vaccination and inoculation against influenza Start:26-Mar-2016 Instruction Type:Patient Education How to access health informa tion online - Detail Indication:Need for prophylactic vaccination and inoculation against influenza Start:26-Mar-2016 Instruction Type:Patient Education Patient Instructions Indication:Need for prophylactic vaccination and inoculation against influenza Start:26-Mar-2016 Instruction Type:Provider Instructions for Treatment How to access health informa tion online - Detail Indication:Elevated fasting glucose Start:21-Jun-2015 Instruction Type:Patient Education How to access health informa tion online - Detail Indication:Elevated fasting glucose Start:21-Jun-2015 Instruction Type:Patient Education Patient Instructions Indication:Elevated fasting glucose Start:21-Jun-2015 Instruction Type:Provider Instructions for Treatment How to access health informa tion online Indication:Annual physical exam Start:29-Dec-2014 Instruction Type:Patient Education How to access health informa tion online - Detail Indication:Annual physical exam Start:29-Dec-2014 Instruction Type:Patient Education Patient Instructions Indication:Annual physical exam Start:29-Dec-2014 Instruction Type:Provider Instructions for Treatment Patient Instructions Indication:Vertigo Start:14-Nov-2014 Instruction Type:Provider Instructions for Treatment Patient Instructions Indication:Cough Start:25-Aug-2014 Instruction Type:Provider Instructions for Treatment Patient Instructions Indication:Dysthymic Start:04-Jul-2014 Instruction Type:Provider Instructions for Treatment Patient Instructions Indication:Dysthymic Start:29-Sep-2013 Instruction Type:Provider Instructions for Treatment [facility]; [facility] Work Phone: Instructions* Name Dates Details Patient Instructions Indication:Smoker Start:07-Jun-2021 Instruction Type:Provider Instructions for Treatment How to Access Health Informa tion Online using Patient Portal and [employer] Apps Indication:Smoker Start:07-Jun-2021 Instruction Type:Patient Education Patient Instructions Indication:Smoker Start:01-Jun-2021 Instruction Type:Provider Instructions for Treatment How to Access Health Informa tion Online using Patient Portal and [employer] Apps Indication:Smoker Start:01-Jun-2021 Instruction Type:Patient Education Patient Instructions Indication:BMI 26.0-26.9,adult Start:26-Jan-2021 Instruction Type:Provider Instructions for Treatment How to Access Health Informa tion Online using Patient Portal and [employer] Apps Indication:BMI 26.0-26.9,adult Start:26-Jan-2021 Instruction Type:Patient Education How to Access Health Informa tion Online using Patient Portal and [employer] Apps Indication:Smoker Start:22-Sep-2020 Instruction Type:Patient Education Patient Instructions Indication:Smoker Start:22-Sep-2020 Instruction Type:Provider Instructions for Treatment How to Access Health Informa tion Online using Patient Portal and [employer] Apps Indication:Nonsmoker Start:21-Jun-2020 Instruction Type:Patient Education Patient Instructions Indication:Nonsmoker Start:21-Jun-2020 Instruction Type:Provider Instructions for Treatment How to Access Health Informa tion Online using Patient Portal and [employer] Apps Indication:Nonsmoker Start:15-Jun-2020 Instruction Type:Patient Education Patient Instructions Indication:Nonsmoker Start:15-Jun-2020 Instruction Type:Provider Instructions for Treatment How to access health informa tion online Indication:BMI 24.0-24.9, adult Start:23-Mar-2020 Instruction Type:Patient Education How to access health informa tion online - Detail Indication:BMI 24.0-24.9, adult Start:23-Mar-2020 Instruction Type:Patient Education Patient Instructions Indication:BMI 24.0-24.9, adult Start:23-Mar-2020 Instruction Type:Provider Instructions for Treatment How to access health informa tion online Indication:Diabetes mellitus type II, controlled Start:08-Dec-2019 Instruction Type:Patient Education How to access health informa tion online - Detail Indication:Diabetes mellitus type II, controlled Start:08-Dec-2019 Instruction Type:Patient Education Patient Instructions Indication:Diabetes mellitus type II, controlled Start:08-Dec-2019 Instruction Type:Provider Instructions for Treatment How to access health informa tion online Indication:Diabetes mellitus type II, controlled Start:01-Sep-2019 Instruction Type:Patient Education How to access health informa tion online - Detail Indication:Diabetes mellitus type II, controlled Start:01-Sep-2019 Instruction Type:Patient Education Patient Instructions Indication:Diabetes mellitus type II, controlled Start:01-Sep-2019 Instruction Type:Provider Instructions for Treatment How to access health informa tion online Indication:Diabetes mellitus type II, controlled Start:29-Apr-2019 Instruction Type:Patient Education How to access health informa tion online - Detail Indication:Diabetes mellitus type II, controlled Start:29-Apr-2019 Instruction Type:Patient Education Patient Instructions Indication:Diabetes mellitus type II, controlled Start:29-Apr-2019 Instruction Type:Provider Instructions for Treatment How to access health informa tion online Indication:BMI 22.0-22.9, adult Start:24-Dec-2018 Instruction Type:Patient Education How to access health informa tion online - Detail Indication:BMI 22.0-22.9, adult Start:24-Dec-2018 Instruction Type:Patient Education Patient Instructions Indication:BMI 22.0-22.9, adult Start:24-Dec-2018 Instruction Type:Provider Instructions for Treatment How to access health informa tion online Indication:Smoker Start:14-May-2018 Instruction Type:Patient Education How to access health informa tion online - Detail Indication:Smoker Start:14-May-2018 Instruction Type:Patient Education Patient Instructions Indication:Smoker Start:14-May-2018 Instruction Type:Provider Instructions for Treatment How to access health informa tion online Indication:Smoker Start:16-Apr-2018 Instruction Type:Patient Education How to access health informa tion online - Detail Indication:Smoker Start:16-Apr-2018 Instruction Type:Patient Education Patient Instructions Indication:Smoker Start:16-Apr-2018 Instruction Type:Provider Instructions for Treatment How to access health informa tion online Indication:Nonsmoker Start:17-Nov-2017 Instruction Type:Patient Education How to access health informa tion online - Detail Indication:Nonsmoker Start:17-Nov-2017 Instruction Type:Patient Education Patient Instructions Indication:Nonsmoker Start:17-Nov-2017 Instruction Type:Provider Instructions for Treatment How to access health informa tion online Indication:Nonsmoker Start:03-Nov-2017 Instruction Type:Patient Education How to access health informa tion online - Detail Indication:Nonsmoker Start:03-Nov-2017 Instruction Type:Patient Education Patient Instructions Indication:Nonsmoker Start:03-Nov-2017 Instruction Type:Provider Instructions for Treatment Patient Instructions Indication:Nonsmoker Start:03-Nov-2017 Instruction Type:Provider Instructions for Treatment How to access health informa tion online Indication:BMI 25.0-25.9,adult Start:27-Oct-2017 Instruction Type:Patient Education How to access health informa tion online - Detail Indication:BMI 25.0-25.9,adult Start:27-Oct-2017 Instruction Type:Patient Education Patient Instructions Indication:BMI 25.0-25.9,adult Start:27-Oct-2017 Instruction Type:Provider Instructions for Treatment How to access health informa tion online Indication:BMI 25.0-25.9,adult Start:06-Mar-2017 Instruction Type:Patient Education How to access health informa tion online - Detail Indication:BMI 25.0-25.9,adult Start:06-Mar-2017 Instruction Type:Patient Education Patient Instructions Indication:BMI 25.0-25.9,adult Start:06-Mar-2017 Instruction Type:Provider Instructions for Treatment How to access health informa tion online Indication:Nasal congestion Start:09-Oct-2016 Instruction Type:Patient Education How to access health informa tion online - Detail Indication:Nasal congestion Start:09-Oct-2016 Instruction Type:Patient Education Patient Instructions Indication:Nasal congestion Start:09-Oct-2016 Instruction Type:Provider Instructions for Treatment How to access health informa tion online Indication:Need for prophylactic vaccination and inoculation against influenza Start:26-Mar-2016 Instruction Type:Patient Education How to access health informa tion online - Detail Indication:Need for prophylactic vaccination and inoculation against influenza Start:26-Mar-2016 Instruction Type:Patient Education Patient Instructions Indication:Need for prophylactic vaccination and inoculation against influenza Start:26-Mar-2016 Instruction Type:Provider Instructions for Treatment How to access health informa tion online - Detail Indication:Elevated fasting glucose Start:21-Jun-2015 Instruction Type:Patient Education How to access health informa tion online - Detail Indication:Elevated fasting glucose Start:21-Jun-2015 Instruction Type:Patient Education Patient Instructions Indication:Elevated fasting glucose Start:21-Jun-2015 Instruction Type:Provider Instructions for Treatment How to access health informa tion online Indication:Annual physical exam Start:29-Dec-2014 Instruction Type:Patient Education How to access health informa tion online - Detail Indication:Annual physical exam Start:29-Dec-2014 Instruction Type:Patient Education Patient Instructions Indication:Annual physical exam Start:29-Dec-2014 Instruction Type:Provider Instructions for Treatment Patient Instructions Indication:Vertigo Start:14-Nov-2014 Instruction Type:Provider Instructions for Treatment Patient Instructions Indication:Cough Start:25-Aug-2014 Instruction Type:Provider Instructions for Treatment Patient Instructions Indication:Dysthymic Start:04-Jul-2014 Instruction Type:Provider Instructions for Treatment Patient Instructions Indication:Dysthymic Start:29-Sep-2013 Instruction Type:Provider Instructions for Treatment [facility]; [facility] Work Phone: Instructions* Name Dates Details How to access health informa tion online Indication:Diabetes mellitus type II, controlled Start:08-Dec-2019 Instruction Type:Patient Education How to access health informa tion online - Detail Indication:Diabetes mellitus type II, controlled Start:08-Dec-2019 Instruction Type:Patient Education Patient Instructions Indication:Diabetes mellitus type II, controlled Start:08-Dec-2019 Instruction Type:Provider Instructions for Treatment How to access health informa tion online Indication:Diabetes mellitus type II, controlled Start:01-Sep-2019 Instruction Type:Patient Education How to access health informa tion online - Detail Indication:Diabetes mellitus type II, controlled Start:01-Sep-2019 Instruction Type:Patient Education Patient Instructions Indication:Diabetes mellitus type II, controlled Start:01-Sep-2019 Instruction Type:Provider Instructions for Treatment How to access health informa tion online Indication:Diabetes mellitus type II, controlled Start:29-Apr-2019 Instruction Type:Patient Education How to access health informa tion online - Detail Indication:Diabetes mellitus type II, controlled Start:29-Apr-2019 Instruction Type:Patient Education Patient Instructions Indication:Diabetes mellitus type II, controlled Start:29-Apr-2019 Instruction Type:Provider Instructions for Treatment How to access health informa tion online Indication:BMI 22.0-22.9, adult Start:24-Dec-2018 Instruction Type:Patient Education How to access health informa tion online - Detail Indication:BMI 22.0-22.9, adult Start:24-Dec-2018 Instruction Type:Patient Education Patient Instructions Indication:BMI 22.0-22.9, adult Start:24-Dec-2018 Instruction Type:Provider Instructions for Treatment How to access health informa tion online Indication:Smoker Start:14-May-2018 Instruction Type:Patient Education How to access health informa tion online - Detail Indication:Smoker Start:14-May-2018 Instruction Type:Patient Education Patient Instructions Indication:Smoker Start:14-May-2018 Instruction Type:Provider Instructions for Treatment How to access health informa tion online Indication:Smoker Start:16-Apr-2018 Instruction Type:Patient Education How to access health informa tion online - Detail Indication:Smoker Start:16-Apr-2018 Instruction Type:Patient Education Patient Instructions Indication:Smoker Start:16-Apr-2018 Instruction Type:Provider Instructions for Treatment How to access health informa tion online Indication:Nonsmoker Start:17-Nov-2017 Instruction Type:Patient Education How to access health informa tion online - Detail Indication:Nonsmoker Start:17-Nov-2017 Instruction Type:Patient Education Patient Instructions Indication:Nonsmoker Start:17-Nov-2017 Instruction Type:Provider Instructions for Treatment How to access health informa tion online Indication:Nonsmoker Start:03-Nov-2017 Instruction Type:Patient Education How to access health informa tion online - Detail Indication:Nonsmoker Start:03-Nov-2017 Instruction Type:Patient Education Patient Instructions Indication:Nonsmoker Start:03-Nov-2017 Instruction Type:Provider Instructions for Treatment Patient Instructions Indication:Nonsmoker Start:03-Nov-2017 Instruction Type:Provider Instructions for Treatment How to access health informa tion online Indication:BMI 25.0-25.9,adult Start:27-Oct-2017 Instruction Type:Patient Education How to access health informa tion online - Detail Indication:BMI 25.0-25.9,adult Start:27-Oct-2017 Instruction Type:Patient Education Patient Instructions Indication:BMI 25.0-25.9,adult Start:27-Oct-2017 Instruction Type:Provider Instructions for Treatment How to access health informa tion online Indication:BMI 25.0-25.9,adult Start:06-Mar-2017 Instruction Type:Patient Education How to access health informa tion online - Detail Indication:BMI 25.0-25.9,adult Start:06-Mar-2017 Instruction Type:Patient Education Patient Instructions Indication:BMI 25.0-25.9,adult Start:06-Mar-2017 Instruction Type:Provider Instructions for Treatment How to access health informa tion online Indication:Nasal congestion Start:09-Oct-2016 Instruction Type:Patient Education How to access health informa tion online - Detail Indication:Nasal congestion Start:09-Oct-2016 Instruction Type:Patient Education Patient Instructions Indication:Nasal congestion Start:09-Oct-2016 Instruction Type:Provider Instructions for Treatment How to access health informa tion online Indication:Need for prophylactic vaccination and inoculation against influenza Start:26-Mar-2016 Instruction Type:Patient Education How to access health informa tion online - Detail Indication:Need for prophylactic vaccination and inoculation against influenza Start:26-Mar-2016 Instruction Type:Patient Education Patient Instructions Indication:Need for prophylactic vaccination and inoculation against influenza Start:26-Mar-2016 Instruction Type:Provider Instructions for Treatment How to access health informa tion online - Detail Indication:Elevated fasting glucose Start:21-Jun-2015 Instruction Type:Patient Education How to access health informa tion online - Detail Indication:Elevated fasting glucose Start:21-Jun-2015 Instruction Type:Patient Education Patient Instructions Indication:Elevated fasting glucose Start:21-Jun-2015 Instruction Type:Provider Instructions for Treatment How to access health informa tion online Indication:Annual physical exam Start:29-Dec-2014 Instruction Type:Patient Education How to access health informa tion online - Detail Indication:Annual physical exam Start:29-Dec-2014 Instruction Type:Patient Education Patient Instructions Indication:Annual physical exam Start:29-Dec-2014 Instruction Type:Provider Instructions for Treatment Patient Instructions Indication:Vertigo Start:14-Nov-2014 Instruction Type:Provider Instructions for Treatment Patient Instructions Indication:Cough Start:25-Aug-2014 Instruction Type:Provider Instructions for Treatment Patient Instructions Indication:Dysthymic Start:04-Jul-2014 Instruction Type:Provider Instructions for Treatment Patient Instructions Indication:Dysthymic Start:29-Sep-2013 Instruction Type:Provider Instructions for Treatment [facility] Work Phone: Instructions* Name Dates Details Patient Instructions Indication:Smoker Start:07-Jun-2021 Instruction Type:Provider Instructions for Treatment How to Access Health Informa tion Online using Patient Portal and [email or web address] Apps Indication:Smoker Start:07-Jun-2021 Instruction Type:Patient Education Patient Instructions Indication:Smoker Start:01-Jun-2021 Instruction Type:Provider Instructions for Treatment How to Access Health Informa tion Online using Patient Portal and [employer]rd [employer] Apps Indication:Smoker Start:01-Jun-2021 Instruction Type:Patient Education Patient Instructions Indication:BMI 26.0-26.9,adult Start:26-Jan-2021 Instruction Type:Provider Instructions for Treatment How to Access Health Informa tion Online using Patient Portal and [employer]rd [employer] Apps Indication:BMI 26.0-26.9,adult Start:26-Jan-2021 Instruction Type:Patient Education How to Access Health Informa tion Online using Patient Portal and [employer]rd [employer] Apps Indication:Smoker Start:22-Sep-2020 Instruction Type:Patient Education Patient Instructions Indication:Smoker Start:22-Sep-2020 Instruction Type:Provider Instructions for Treatment How to Access Health Informa tion Online using Patient Portal and [employer]rd [employer] Apps Indication:Nonsmoker Start:21-Jun-2020 Instruction Type:Patient Education Patient Instructions Indication:Nonsmoker Start:21-Jun-2020 Instruction Type:Provider Instructions for Treatment How to Access Health Informa tion Online using Patient Portal and [employer]rd [employer] Apps Indication:Nonsmoker Start:15-Jun-2020 Instruction Type:Patient Education Patient Instructions Indication:Nonsmoker Start:15-Jun-2020 Instruction Type:Provider Instructions for Treatment How to access health informa tion online Indication:BMI 24.0-24.9, adult Start:23-Mar-2020 Instruction Type:Patient Education How to access health informa tion online - Detail Indication:BMI 24.0-24.9, adult Start:23-Mar-2020 Instruction Type:Patient Education Patient Instructions Indication:BMI 24.0-24.9, adult Start:23-Mar-2020 Instruction Type:Provider Instructions for Treatment How to access health informa tion online Indication:Diabetes mellitus type II, controlled Start:08-Dec-2019 Instruction Type:Patient Education How to access health informa tion online - Detail Indication:Diabetes mellitus type II, controlled Start:08-Dec-2019 Instruction Type:Patient Education Patient Instructions Indication:Diabetes mellitus type II, controlled Start:08-Dec-2019 Instruction Type:Provider Instructions for Treatment How to access health informa tion online Indication:Diabetes mellitus type II, controlled Start:01-Sep-2019 Instruction Type:Patient Education How to access health informa tion online - Detail Indication:Diabetes mellitus type II, controlled Start:01-Sep-2019 Instruction Type:Patient Education Patient Instructions Indication:Diabetes mellitus type II, controlled Start:01-Sep-2019 Instruction Type:Provider Instructions for Treatment How to access health informa tion online Indication:Diabetes mellitus type II, controlled Start:29-Apr-2019 Instruction Type:Patient Education How to access health informa tion online - Detail Indication:Diabetes mellitus type II, controlled Start:29-Apr-2019 Instruction Type:Patient Education Patient Instructions Indication:Diabetes mellitus type II, controlled Start:29-Apr-2019 Instruction Type:Provider Instructions for Treatment How to access health informa tion online Indication:BMI 22.0-22.9, adult Start:24-Dec-2018 Instruction Type:Patient Education How to access health informa tion online - Detail Indication:BMI 22.0-22.9, adult Start:24-Dec-2018 Instruction Type:Patient Education Patient Instructions Indication:BMI 22.0-22.9, adult Start:24-Dec-2018 Instruction Type:Provider Instructions for Treatment How to access health informa tion online Indication:Smoker Start:14-May-2018 Instruction Type:Patient Education How to access health informa tion online - Detail Indication:Smoker Start:14-May-2018 Instruction Type:Patient Education Patient Instructions Indication:Smoker Start:14-May-2018 Instruction Type:Provider Instructions for Treatment How to access health informa tion online Indication:Smoker Start:16-Apr-2018 Instruction Type:Patient Education How to access health informa tion online - Detail Indication:Smoker Start:16-Apr-2018 Instruction Type:Patient Education Patient Instructions Indication:Smoker Start:16-Apr-2018 Instruction Type:Provider Instructions for Treatment How to access health informa tion online Indication:Nonsmoker Start:17-Nov-2017 Instruction Type:Patient Education How to access health informa tion online - Detail Indication:Nonsmoker Start:17-Nov-2017 Instruction Type:Patient Education Patient Instructions Indication:Nonsmoker Start:17-Nov-2017 Instruction Type:Provider Instructions for Treatment How to access health informa tion online Indication:Nonsmoker Start:03-Nov-2017 Instruction Type:Patient Education How to access health informa tion online - Detail Indication:Nonsmoker Start:03-Nov-2017 Instruction Type:Patient Education Patient Instructions Indication:Nonsmoker Start:03-Nov-2017 Instruction Type:Provider Instructions for Treatment Patient Instructions Indication:Nonsmoker Start:03-Nov-2017 Instruction Type:Provider Instructions for Treatment How to access health informa tion online Indication:BMI 25.0-25.9,adult Start:27-Oct-2017 Instruction Type:Patient Education How to access health informa tion online - Detail Indication:BMI 25.0-25.9,adult Start:27-Oct-2017 Instruction Type:Patient Education Patient Instructions Indication:BMI 25.0-25.9,adult Start:27-Oct-2017 Instruction Type:Provider Instructions for Treatment How to access health informa tion online Indication:BMI 25.0-25.9,adult Start:06-Mar-2017 Instruction Type:Patient Education How to access health informa tion online - Detail Indication:BMI 25.0-25.9,adult Start:06-Mar-2017 Instruction Type:Patient Education Patient Instructions Indication:BMI 25.0-25.9,adult Start:06-Mar-2017 Instruction Type:Provider Instructions for Treatment How to access health informa tion online Indication:Nasal congestion Start:09-Oct-2016 Instruction Type:Patient Education How to access health informa tion online - Detail Indication:Nasal congestion Start:09-Oct-2016 Instruction Type:Patient Education Patient Instructions Indication:Nasal congestion Start:09-Oct-2016 Instruction Type:Provider Instructions for Treatment How to access health informa tion online Indication:Need for prophylactic vaccination and inoculation against influenza Start:26-Mar-2016 Instruction Type:Patient Education How to access health informa tion online - Detail Indication:Need for prophylactic vaccination and inoculation against influenza Start:26-Mar-2016 Instruction Type:Patient Education Patient Instructions Indication:Need for prophylactic vaccination and inoculation against influenza Start:26-Mar-2016 Instruction Type:Provider Instructions for Treatment How to access health informa tion online - Detail Indication:Elevated fasting glucose Start:21-Jun-2015 Instruction Type:Patient Education How to access health informa tion online - Detail Indication:Elevated fasting glucose Start:21-Jun-2015 Instruction Type:Patient Education Patient Instructions Indication:Elevated fasting glucose Start:21-Jun-2015 Instruction Type:Provider Instructions for Treatment How to access health informa tion online Indication:Annual physical exam Start:29-Dec-2014 Instruction Type:Patient Education How to access health informa tion online - Detail Indication:Annual physical exam Start:29-Dec-2014 Instruction Type:Patient Education Patient Instructions Indication:Annual physical exam Start:29-Dec-2014 Instruction Type:Provider Instructions for Treatment Patient Instructions Indication:Vertigo Start:14-Nov-2014 Instruction Type:Provider Instructions for Treatment Patient Instructions Indication:Cough Start:25-Aug-2014 Instruction Type:Provider Instructions for Treatment Patient Instructions Indication:Dysthymic Start:04-Jul-2014 Instruction Type:Provider Instructions for Treatment Patient Instructions Indication:Dysthymic Start:29-Sep-2013 Instruction Type:Provider Instructions for Treatment [facility]; [facility] Work Phone: Instructions* Name Dates Details Patient Instructions Indication:Smoker Start:07-Jun-2021 Instruction Type:Provider Instructions for Treatment How to Access Health Informa tion Online using Patient Portal and [employer] Apps Indication:Smoker Start:07-Jun-2021 Instruction Type:Patient Education Patient Instructions Indication:Smoker Start:01-Jun-2021 Instruction Type:Provider Instructions for Treatment How to Access Health Informa tion Online using Patient Portal and [employer]rd [employer] Apps Indication:Smoker Start:01-Jun-2021 Instruction Type:Patient Education Patient Instructions Indication:BMI 26.0-26.9,adult Start:26-Jan-2021 Instruction Type:Provider Instructions for Treatment How to Access Health Informa tion Online using Patient Portal and [employer]rd [employer] Indication:BMI 26.0-26.9,adult Start:26-Jan-2021 Instruction Type:Patient Education How to Access Health Informa tion Online using Patient Portal and [employer]rd [employer] Apps Indication:Smoker Start:22-Sep-2020 Instruction Type:Patient Education Patient Instructions Indication:Smoker Start:22-Sep-2020 Instruction Type:Provider Instructions for Treatment How to Access Health Informa tion Online using Patient Portal and [employer] Apps Indication:Nonsmoker Start:21-Jun-2020 Instruction Type:Patient Education Patient Instructions Indication:Nonsmoker Start:21-Jun-2020 Instruction Type:Provider Instructions for Treatment How to Access Health Informa tion Online using Patient Portal and [employer] Apps Indication:Nonsmoker Start:15-Jun-2020 Instruction Type:Patient Education Patient Instructions Indication:Nonsmoker Start:15-Jun-2020 Instruction Type:Provider Instructions for Treatment How to access health informa tion online Indication:BMI 24.0-24.9, adult Start:23-Mar-2020 Instruction Type:Patient Education How to access health informa tion online - Detail Indication:BMI 24.0-24.9, adult Start:23-Mar-2020 Instruction Type:Patient Education Patient Instructions Indication:BMI 24.0-24.9, adult Start:23-Mar-2020 Instruction Type:Provider Instructions for Treatment How to access health informa tion online Indication:Diabetes mellitus type II, controlled Start:08-Dec-2019 Instruction Type:Patient Education How to access health informa tion online - Detail Indication:Diabetes mellitus type II, controlled Start:08-Dec-2019 Instruction Type:Patient Education Patient Instructions Indication:Diabetes mellitus type II, controlled Start:08-Dec-2019 Instruction Type:Provider Instructions for Treatment How to access health informa tion online Indication:Diabetes mellitus type II, controlled Start:01-Sep-2019 Instruction Type:Patient Education How to access health informa tion online - Detail Indication:Diabetes mellitus type II, controlled Start:01-Sep-2019 Instruction Type:Patient Education Patient Instructions Indication:Diabetes mellitus type II, controlled Start:01-Sep-2019 Instruction Type:Provider Instructions for Treatment How to access health informa tion online Indication:Diabetes mellitus type II, controlled Start:29-Apr-2019 Instruction Type:Patient Education How to access health informa tion online - Detail Indication:Diabetes mellitus type II, controlled Start:29-Apr-2019 Instruction Type:Patient Education Patient Instructions Indication:Diabetes mellitus type II, controlled Start:29-Apr-2019 Instruction Type:Provider Instructions for Treatment How to access health informa tion online Indication:BMI 22.0-22.9, adult Start:24-Dec-2018 Instruction Type:Patient Education How to access health informa tion online - Detail Indication:BMI 22.0-22.9, adult Start:24-Dec-2018 Instruction Type:Patient Education Patient Instructions Indication:BMI 22.0-22.9, adult Start:24-Dec-2018 Instruction Type:Provider Instructions for Treatment How to access health informa tion online Indication:Smoker Start:14-May-2018 Instruction Type:Patient Education How to access health informa tion online - Detail Indication:Smoker Start:14-May-2018 Instruction Type:Patient Education Patient Instructions Indication:Smoker Start:14-May-2018 Instruction Type:Provider Instructions for Treatment How to access health informa tion online Indication:Smoker Start:16-Apr-2018 Instruction Type:Patient Education How to access health informa tion online - Detail Indication:Smoker Start:16-Apr-2018 Instruction Type:Patient Education Patient Instructions Indication:Smoker Start:16-Apr-2018 Instruction Type:Provider Instructions for Treatment How to access health informa tion online Indication:Nonsmoker Start:17-Nov-2017 Instruction Type:Patient Education How to access health informa tion online - Detail Indication:Nonsmoker Start:17-Nov-2017 Instruction Type:Patient Education Patient Instructions Indication:Nonsmoker Start:17-Nov-2017 Instruction Type:Provider Instructions for Treatment How to access health informa tion online Indication:Nonsmoker Start:03-Nov-2017 Instruction Type:Patient Education How to access health informa tion online - Detail Indication:Nonsmoker Start:03-Nov-2017 Instruction Type:Patient Education Patient Instructions Indication:Nonsmoker Start:03-Nov-2017 Instruction Type:Provider Instructions for Treatment Patient Instructions Indication:Nonsmoker Start:03-Nov-2017 Instruction Type:Provider Instructions for Treatment How to access health informa tion online Indication:BMI 25.0-25.9,adult Start:27-Oct-2017 Instruction Type:Patient Education How to access health informa tion online - Detail Indication:BMI 25.0-25.9,adult Start:27-Oct-2017 Instruction Type:Patient Education Patient Instructions Indication:BMI 25.0-25.9,adult Start:27-Oct-2017 Instruction Type:Provider Instructions for Treatment How to access health informa tion online Indication:BMI 25.0-25.9,adult Start:06-Mar-2017 Instruction Type:Patient Education How to access health informa tion online - Detail Indication:BMI 25.0-25.9,adult Start:06-Mar-2017 Instruction Type:Patient Education Patient Instructions Indication:BMI 25.0-25.9,adult Start:06-Mar-2017 Instruction Type:Provider Instructions for Treatment How to access health informa tion online Indication:Nasal congestion Start:09-Oct-2016 Instruction Type:Patient Education How to access health informa tion online - Detail Indication:Nasal congestion Start:09-Oct-2016 Instruction Type:Patient Education Patient Instructions Indication:Nasal congestion Start:09-Oct-2016 Instruction Type:Provider Instructions for Treatment How to access health informa tion online Indication:Need for prophylactic vaccination and inoculation against influenza Start:26-Mar-2016 Instruction Type:Patient Education How to access health informa tion online - Detail Indication:Need for prophylactic vaccination and inoculation against influenza Start:26-Mar-2016 Instruction Type:Patient Education Patient Instructions Indication:Need for prophylactic vaccination and inoculation against influenza Start:26-Mar-2016 Instruction Type:Provider Instructions for Treatment How to access health informa tion online - Detail Indication:Elevated fasting glucose Start:21-Jun-2015 Instruction Type:Patient Education How to access health informa tion online - Detail Indication:Elevated fasting glucose Start:21-Jun-2015 Instruction Type:Patient Education Patient Instructions Indication:Elevated fasting glucose Start:21-Jun-2015 Instruction Type:Provider Instructions for Treatment How to access health informa tion online Indication:Annual physical exam Start:29-Dec-2014 Instruction Type:Patient Education How to access health informa tion online - Detail Indication:Annual physical exam Start:29-Dec-2014 Instruction Type:Patient Education Patient Instructions Indication:Annual physical exam Start:29-Dec-2014 Instruction Type:Provider Instructions for Treatment Patient Instructions Indication:Vertigo Start:14-Nov-2014 Instruction Type:Provider Instructions for Treatment Patient Instructions Indication:Cough Start:25-Aug-2014 Instruction Type:Provider Instructions for Treatment Patient Instructions Indication:Dysthymic Start:04-Jul-2014 Instruction Type:Provider Instructions for Treatment Patient Instructions Indication:Dysthymic Start:29-Sep-2013 Instruction Type:Provider Instructions for Treatment [facility]; [facility] Work Phone: Instructions* Name Dates Details Patient Instructions Indication:Smoker Start:05-Oct-2021 Instruction Type:Provider Instructions for Treatment How to Access Health Informa tion Online using Patient Portal and [employer]rd [employer] Apps Indication:Smoker Start:05-Oct-2021 Instruction Type:Patient Education Patient Instructions Indication:Smoker Start:07-Jun-2021 Instruction Type:Provider Instructions for Treatment How to Access Health Informa tion Online using Patient Portal and [employer]rd [employer] Apps Indication:Smoker Start:07-Jun-2021 Instruction Type:Patient Education Patient Instructions Indication:Smoker Start:01-Jun-2021 Instruction Type:Provider Instructions for Treatment How to Access Health Informa tion Online using Patient Portal and [employer]rd [employer] Apps Indication:Smoker Start:01-Jun-2021 Instruction Type:Patient Education Patient Instructions Indication:BMI 26.0-26.9,adult Start:26-Jan-2021 Instruction Type:Provider Instructions for Treatment How to Access Health Informa tion Online using Patient Portal and [employer]rd [employer] Apps Indication:BMI 26.0-26.9,adult Start:26-Jan-2021 Instruction Type:Patient Education How to Access Health Informa tion Online using Patient Portal and [employer]rd [employer] Apps Indication:Smoker Start:22-Sep-2020 Instruction Type:Patient Education Patient Instructions Indication:Smoker Start:22-Sep-2020 Instruction Type:Provider Instructions for Treatment How to Access Health Informa tion Online using Patient Portal and [employer]rd [employer] Apps Indication:Nonsmoker Start:21-Jun-2020 Instruction Type:Patient Education Patient Instructions Indication:Nonsmoker Start:21-Jun-2020 Instruction Type:Provider Instructions for Treatment How to Access Health Informa tion Online using Patient Portal and [employer]rd [employer] Apps Indication:Nonsmoker Start:15-Jun-2020 Instruction Type:Patient Education Patient Instructions Indication:Nonsmoker Start:15-Jun-2020 Instruction Type:Provider Instructions for Treatment How to access health informa tion online Indication:BMI 24.0-24.9, adult Start:23-Mar-2020 Instruction Type:Patient Education How to access health informa tion online - Detail Indication:BMI 24.0-24.9, adult Start:23-Mar-2020 Instruction Type:Patient Education Patient Instructions Indication:BMI 24.0-24.9, adult Start:23-Mar-2020 Instruction Type:Provider Instructions for Treatment How to access health informa tion online Indication:Diabetes mellitus type II, controlled Start:08-Dec-2019 Instruction Type:Patient Education How to access health informa tion online - Detail Indication:Diabetes mellitus type II, controlled Start:08-Dec-2019 Instruction Type:Patient Education Patient Instructions Indication:Diabetes mellitus type II, controlled Start:08-Dec-2019 Instruction Type:Provider Instructions for Treatment How to access health informa tion online Indication:Diabetes mellitus type II, controlled Start:01-Sep-2019 Instruction Type:Patient Education How to access health informa tion online - Detail Indication:Diabetes mellitus type II, controlled Start:01-Sep-2019 Instruction Type:Patient Education Patient Instructions Indication:Diabetes mellitus type II, controlled Start:01-Sep-2019 Instruction Type:Provider Instructions for Treatment How to access health informa tion online Indication:Diabetes mellitus type II, controlled Start:29-Apr-2019 Instruction Type:Patient Education How to access health informa tion online - Detail Indication:Diabetes mellitus type II, controlled Start:29-Apr-2019 Instruction Type:Patient Education Patient Instructions Indication:Diabetes mellitus type II, controlled Start:29-Apr-2019 Instruction Type:Provider Instructions for Treatment How to access health informa tion online Indication:BMI 22.0-22.9, adult Start:24-Dec-2018 Instruction Type:Patient Education How to access health informa tion online - Detail Indication:BMI 22.0-22.9, adult Start:24-Dec-2018 Instruction Type:Patient Education Patient Instructions Indication:BMI 22.0-22.9, adult Start:24-Dec-2018 Instruction Type:Provider Instructions for Treatment How to access health informa tion online Indication:Smoker Start:14-May-2018 Instruction Type:Patient Education How to access health informa tion online - Detail Indication:Smoker Start:14-May-2018 Instruction Type:Patient Education Patient Instructions Indication:Smoker Start:14-May-2018 Instruction Type:Provider Instructions for Treatment How to access health informa tion online Indication:Smoker Start:16-Apr-2018 Instruction Type:Patient Education How to access health informa tion online - Detail Indication:Smoker Start:16-Apr-2018 Instruction Type:Patient Education Patient Instructions Indication:Smoker Start:16-Apr-2018 Instruction Type:Provider Instructions for Treatment How to access health informa tion online Indication:Nonsmoker Start:17-Nov-2017 Instruction Type:Patient Education How to access health informa tion online - Detail Indication:Nonsmoker Start:17-Nov-2017 Instruction Type:Patient Education Patient Instructions Indication:Nonsmoker Start:17-Nov-2017 Instruction Type:Provider Instructions for Treatment How to access health informa tion online Indication:Nonsmoker Start:03-Nov-2017 Instruction Type:Patient Education How to access health informa tion online - Detail Indication:Nonsmoker Start:03-Nov-2017 Instruction Type:Patient Education Patient Instructions Indication:Nonsmoker Start:03-Nov-2017 Instruction Type:Provider Instructions for Treatment Patient Instructions Indication:Nonsmoker Start:03-Nov-2017 Instruction Type:Provider Instructions for Treatment How to access health informa tion online Indication:BMI 25.0-25.9,adult Start:27-Oct-2017 Instruction Type:Patient Education How to access health informa tion online - Detail Indication:BMI 25.0-25.9,adult Start:27-Oct-2017 Instruction Type:Patient Education Patient Instructions Indication:BMI 25.0-25.9,adult Start:27-Oct-2017 Instruction Type:Provider Instructions for Treatment How to access health informa tion online Indication:BMI 25.0-25.9,adult Start:06-Mar-2017 Instruction Type:Patient Education How to access health informa tion online - Detail Indication:BMI 25.0-25.9,adult Start:06-Mar-2017 Instruction Type:Patient Education Patient Instructions Indication:BMI 25.0-25.9,adult Start:06-Mar-2017 Instruction Type:Provider Instructions for Treatment How to access health informa tion online Indication:Nasal congestion Start:09-Oct-2016 Instruction Type:Patient Education How to access health informa tion online - Detail Indication:Nasal congestion Start:09-Oct-2016 Instruction Type:Patient Education Patient Instructions Indication:Nasal congestion Start:09-Oct-2016 Instruction Type:Provider Instructions for Treatment How to access health informa tion online Indication:Need for prophylactic vaccination and inoculation against influenza Start:26-Mar-2016 Instruction Type:Patient Education How to access health informa tion online - Detail Indication:Need for prophylactic vaccination and inoculation against influenza Start:26-Mar-2016 Instruction Type:Patient Education Patient Instructions Indication:Need for prophylactic vaccination and inoculation against influenza Start:26-Mar-2016 Instruction Type:Provider Instructions for Treatment How to access health informa tion online - Detail Indication:Elevated fasting glucose Start:21-Jun-2015 Instruction Type:Patient Education How to access health informa tion online - Detail Indication:Elevated fasting glucose Start:21-Jun-2015 Instruction Type:Patient Education Patient Instructions Indication:Elevated fasting glucose Start:21-Jun-2015 Instruction Type:Provider Instructions for Treatment How to access health informa tion online Indication:Annual physical exam Start:29-Dec-2014 Instruction Type:Patient Education How to access health informa tion online - Detail Indication:Annual physical exam Start:29-Dec-2014 Instruction Type:Patient Education Patient Instructions Indication:Annual physical exam Start:29-Dec-2014 Instruction Type:Provider Instructions for Treatment Patient Instructions Indication:Vertigo Start:14-Nov-2014 Instruction Type:Provider Instructions for Treatment Patient Instructions Indication:Cough Start:25-Aug-2014 Instruction Type:Provider Instructions for Treatment Patient Instructions Indication:Dysthymic Start:04-Jul-2014 Instruction Type:Provider Instructions for Treatment Patient Instructions Indication:Dysthymic Start:29-Sep-2013 Instruction Type:Provider Instructions for Treatment [facility]; [facility] Work Phone: Instructions* Name Dates Details Patient Instructions Indication:Smoker Start:05-Oct-2021 Instruction Type:Provider Instructions for Treatment How to Access Health Informa tion Online using Patient Portal and [employer]rd [employer] Apps Indication:Smoker Start:05-Oct-2021 Instruction Type:Patient Education Patient Instructions Indication:Smoker Start:07-Jun-2021 Instruction Type:Provider Instructions for Treatment How to Access Health Informa tion Online using Patient Portal and [employer]rd [employer] Apps Indication:Smoker Start:07-Jun-2021 Instruction Type:Patient Education Patient Instructions Indication:Smoker Start:01-Jun-2021 Instruction Type:Provider Instructions for Treatment How to Access Health Informa tion Online using Patient Portal and [employer]rd [employer] Apps Indication:Smoker Start:01-Jun-2021 Instruction Type:Patient Education Patient Instructions Indication:BMI 26.0-26.9,adult Start:26-Jan-2021 Instruction Type:Provider Instructions for Treatment How to Access Health Informa tion Online using Patient Portal and [employer]rd [employer] Apps Indication:BMI 26.0-26.9,adult Start:26-Jan-2021 Instruction Type:Patient Education How to Access Health Informa tion Online using Patient Portal and [employer]rd [employer] Apps Indication:Smoker Start:22-Sep-2020 Instruction Type:Patient Education Patient Instructions Indication:Smoker Start:22-Sep-2020 Instruction Type:Provider Instructions for Treatment How to Access Health Informa tion Online using Patient Portal and [employer]rd [employer] Apps Indication:Nonsmoker Start:21-Jun-2020 Instruction Type:Patient Education Patient Instructions Indication:Nonsmoker Start:21-Jun-2020 Instruction Type:Provider Instructions for Treatment How to Access Health Informa tion Online using Patient Portal and [employer]rd [employer] Apps Indication:Nonsmoker Start:15-Jun-2020 Instruction Type:Patient Education Patient Instructions Indication:Nonsmoker Start:15-Jun-2020 Instruction Type:Provider Instructions for Treatment How to access health informa tion online Indication:BMI 24.0-24.9, adult Start:23-Mar-2020 Instruction Type:Patient Education How to access health informa tion online - Detail Indication:BMI 24.0-24.9, adult Start:23-Mar-2020 Instruction Type:Patient Education Patient Instructions Indication:BMI 24.0-24.9, adult Start:23-Mar-2020 Instruction Type:Provider Instructions for Treatment How to access health informa tion online Indication:Diabetes mellitus type II, controlled Start:08-Dec-2019 Instruction Type:Patient Education How to access health informa tion online - Detail Indication:Diabetes mellitus type II, controlled Start:08-Dec-2019 Instruction Type:Patient Education Patient Instructions Indication:Diabetes mellitus type II, controlled Start:08-Dec-2019 Instruction Type:Provider Instructions for Treatment How to access health informa tion online Indication:Diabetes mellitus type II, controlled Start:01-Sep-2019 Instruction Type:Patient Education How to access health informa tion online - Detail Indication:Diabetes mellitus type II, controlled Start:01-Sep-2019 Instruction Type:Patient Education Patient Instructions Indication:Diabetes mellitus type II, controlled Start:01-Sep-2019 Instruction Type:Provider Instructions for Treatment How to access health informa tion online Indication:Diabetes mellitus type II, controlled Start:29-Apr-2019 Instruction Type:Patient Education How to access health informa tion online - Detail Indication:Diabetes mellitus type II, controlled Start:29-Apr-2019 Instruction Type:Patient Education Patient Instructions Indication:Diabetes mellitus type II, controlled Start:29-Apr-2019 Instruction Type:Provider Instructions for Treatment How to access health informa tion online Indication:BMI 22.0-22.9, adult Start:24-Dec-2018 Instruction Type:Patient Education How to access health informa tion online - Detail Indication:BMI 22.0-22.9, adult Start:24-Dec-2018 Instruction Type:Patient Education Patient Instructions Indication:BMI 22.0-22.9, adult Start:24-Dec-2018 Instruction Type:Provider Instructions for Treatment How to access health informa tion online Indication:Smoker Start:14-May-2018 Instruction Type:Patient Education How to access health informa tion online - Detail Indication:Smoker Start:14-May-2018 Instruction Type:Patient Education Patient Instructions Indication:Smoker Start:14-May-2018 Instruction Type:Provider Instructions for Treatment How to access health informa tion online Indication:Smoker Start:16-Apr-2018 Instruction Type:Patient Education How to access health informa tion online - Detail Indication:Smoker Start:16-Apr-2018 Instruction Type:Patient Education Patient Instructions Indication:Smoker Start:16-Apr-2018 Instruction Type:Provider Instructions for Treatment How to access health informa tion online Indication:Nonsmoker Start:17-Nov-2017 Instruction Type:Patient Education How to access health informa tion online - Detail Indication:Nonsmoker Start:17-Nov-2017 Instruction Type:Patient Education Patient Instructions Indication:Nonsmoker Start:17-Nov-2017 Instruction Type:Provider Instructions for Treatment How to access health informa tion online Indication:Nonsmoker Start:03-Nov-2017 Instruction Type:Patient Education How to access health informa tion online - Detail Indication:Nonsmoker Start:03-Nov-2017 Instruction Type:Patient Education Patient Instructions Indication:Nonsmoker Start:03-Nov-2017 Instruction Type:Provider Instructions for Treatment Patient Instructions Indication:Nonsmoker Start:03-Nov-2017 Instruction Type:Provider Instructions for Treatment How to access health informa tion online Indication:BMI 25.0-25.9,adult Start:27-Oct-2017 Instruction Type:Patient Education How to access health informa tion online - Detail Indication:BMI 25.0-25.9,adult Start:27-Oct-2017 Instruction Type:Patient Education Patient Instructions Indication:BMI 25.0-25.9,adult Start:27-Oct-2017 Instruction Type:Provider Instructions for Treatment How to access health informa tion online Indication:BMI 25.0-25.9,adult Start:06-Mar-2017 Instruction Type:Patient Education How to access health informa tion online - Detail Indication:BMI 25.0-25.9,adult Start:06-Mar-2017 Instruction Type:Patient Education Patient Instructions Indication:BMI 25.0-25.9,adult Start:06-Mar-2017 Instruction Type:Provider Instructions for Treatment How to access health informa tion online Indication:Nasal congestion Start:09-Oct-2016 Instruction Type:Patient Education How to access health informa tion online - Detail Indication:Nasal congestion Start:09-Oct-2016 Instruction Type:Patient Education Patient Instructions Indication:Nasal congestion Start:09-Oct-2016 Instruction Type:Provider Instructions for Treatment How to access health informa tion online Indication:Need for prophylactic vaccination and inoculation against influenza Start:26-Mar-2016 Instruction Type:Patient Education How to access health informa tion online - Detail Indication:Need for prophylactic vaccination and inoculation against influenza Start:26-Mar-2016 Instruction Type:Patient Education Patient Instructions Indication:Need for prophylactic vaccination and inoculation against influenza Start:26-Mar-2016 Instruction Type:Provider Instructions for Treatment How to access health informa tion online - Detail Indication:Elevated fasting glucose Start:21-Jun-2015 Instruction Type:Patient Education How to access health informa tion online - Detail Indication:Elevated fasting glucose Start:21-Jun-2015 Instruction Type:Patient Education Patient Instructions Indication:Elevated fasting glucose Start:21-Jun-2015 Instruction Type:Provider Instructions for Treatment How to access health informa tion online Indication:Annual physical exam Start:29-Dec-2014 Instruction Type:Patient Education How to access health informa tion online - Detail Indication:Annual physical exam Start:29-Dec-2014 Instruction Type:Patient Education Patient Instructions Indication:Annual physical exam Start:29-Dec-2014 Instruction Type:Provider Instructions for Treatment Patient Instructions Indication:Vertigo Start:14-Nov-2014 Instruction Type:Provider Instructions for Treatment Patient Instructions Indication:Cough Start:25-Aug-2014 Instruction Type:Provider Instructions for Treatment Patient Instructions Indication:Dysthymic Start:04-Jul-2014 Instruction Type:Provider Instructions for Treatment Patient Instructions Indication:Dysthymic Start:29-Sep-2013 Instruction Type:Provider Instructions for Treatment [facility]; [facility] Work Phone: Instructions* Name Dates Details Patient Instructions Indication:Smoker Start:25-Jan-2022 Instruction Type:Provider Instructions for Treatment How to Access Health Informa tion Online using Patient Portal and [employer]rd [employer] Apps Indication:Smoker Start:25-Jan-2022 Instruction Type:Patient Education Patient Instructions Indication:Smoker Start:05-Oct-2021 Instruction Type:Provider Instructions for Treatment How to Access Health Informa tion Online using Patient Portal and [employer]rd [employer] Apps Indication:Smoker Start:05-Oct-2021 Instruction Type:Patient Education Patient Instructions Indication:Smoker Start:07-Jun-2021 Instruction Type:Provider Instructions for Treatment How to Access Health Informa tion Online using Patient Portal and [employer]rd [employer] Apps Indication:Smoker Start:07-Jun-2021 Instruction Type:Patient Education Patient Instructions Indication:Smoker Start:01-Jun-2021 Instruction Type:Provider Instructions for Treatment How to Access Health Informa tion Online using Patient Portal and [employer]rd [employer] Apps Indication:Smoker Start:01-Jun-2021 Instruction Type:Patient Education Patient Instructions Indication:BMI 26.0-26.9,adult Start:26-Jan-2021 Instruction Type:Provider Instructions for Treatment How to Access Health Informa tion Online using Patient Portal and [employer]rd [employer] Apps Indication:BMI 26.0-26.9,adult Start:26-Jan-2021 Instruction Type:Patient Education How to Access Health Informa tion Online using Patient Portal and [employer]rd [employer] Apps Indication:Smoker Start:22-Sep-2020 Instruction Type:Patient Education Patient Instructions Indication:Smoker Start:22-Sep-2020 Instruction Type:Provider Instructions for Treatment How to Access Health Informa tion Online using Patient Portal and [employer]rd [employer] Apps Indication:Nonsmoker Start:21-Jun-2020 Instruction Type:Patient Education Patient Instructions Indication:Nonsmoker Start:21-Jun-2020 Instruction Type:Provider Instructions for Treatment How to Access Health Informa tion Online using Patient Portal and [employer]rd [employer] Apps Indication:Nonsmoker Start:15-Jun-2020 Instruction Type:Patient Education Patient Instructions Indication:Nonsmoker Start:15-Jun-2020 Instruction Type:Provider Instructions for Treatment How to access health informa tion online Indication:BMI 24.0-24.9, adult Start:23-Mar-2020 Instruction Type:Patient Education How to access health informa tion online - Detail Indication:BMI 24.0-24.9, adult Start:23-Mar-2020 Instruction Type:Patient Education Patient Instructions Indication:BMI 24.0-24.9, adult Start:23-Mar-2020 Instruction Type:Provider Instructions for Treatment How to access health informa tion online Indication:Diabetes mellitus type II, controlled Start:08-Dec-2019 Instruction Type:Patient Education How to access health informa tion online - Detail Indication:Diabetes mellitus type II, controlled Start:08-Dec-2019 Instruction Type:Patient Education Patient Instructions Indication:Diabetes mellitus type II, controlled Start:08-Dec-2019 Instruction Type:Provider Instructions for Treatment How to access health informa tion online Indication:Diabetes mellitus type II, controlled Start:01-Sep-2019 Instruction Type:Patient Education How to access health informa tion online - Detail Indication:Diabetes mellitus type II, controlled Start:01-Sep-2019 Instruction Type:Patient Education Patient Instructions Indication:Diabetes mellitus type II, controlled Start:01-Sep-2019 Instruction Type:Provider Instructions for Treatment How to access health informa tion online Indication:Diabetes mellitus type II, controlled Start:29-Apr-2019 Instruction Type:Patient Education How to access health informa tion online - Detail Indication:Diabetes mellitus type II, controlled Start:29-Apr-2019 Instruction Type:Patient Education Patient Instructions Indication:Diabetes mellitus type II, controlled Start:29-Apr-2019 Instruction Type:Provider Instructions for Treatment How to access health informa tion online Indication:BMI 22.0-22.9, adult Start:24-Dec-2018 Instruction Type:Patient Education How to access health informa tion online - Detail Indication:BMI 22.0-22.9, adult Start:24-Dec-2018 Instruction Type:Patient Education Patient Instructions Indication:BMI 22.0-22.9, adult Start:24-Dec-2018 Instruction Type:Provider Instructions for Treatment How to access health informa tion online Indication:Smoker Start:14-May-2018 Instruction Type:Patient Education How to access health informa tion online - Detail Indication:Smoker Start:14-May-2018 Instruction Type:Patient Education Patient Instructions Indication:Smoker Start:14-May-2018 Instruction Type:Provider Instructions for Treatment How to access health informa tion online Indication:Smoker Start:16-Apr-2018 Instruction Type:Patient Education How to access health informa tion online - Detail Indication:Smoker Start:16-Apr-2018 Instruction Type:Patient Education Patient Instructions Indication:Smoker Start:16-Apr-2018 Instruction Type:Provider Instructions for Treatment How to access health informa tion online Indication:Nonsmoker Start:17-Nov-2017 Instruction Type:Patient Education How to access health informa tion online - Detail Indication:Nonsmoker Start:17-Nov-2017 Instruction Type:Patient Education Patient Instructions Indication:Nonsmoker Start:17-Nov-2017 Instruction Type:Provider Instructions for Treatment How to access health informa tion online Indication:Nonsmoker Start:03-Nov-2017 Instruction Type:Patient Education How to access health informa tion online - Detail Indication:Nonsmoker Start:03-Nov-2017 Instruction Type:Patient Education Patient Instructions Indication:Nonsmoker Start:03-Nov-2017 Instruction Type:Provider Instructions for Treatment Patient Instructions Indication:Nonsmoker Start:03-Nov-2017 Instruction Type:Provider Instructions for Treatment How to access health informa tion online Indication:BMI 25.0-25.9,adult Start:27-Oct-2017 Instruction Type:Patient Education How to access health informa tion online - Detail Indication:BMI 25.0-25.9,adult Start:27-Oct-2017 Instruction Type:Patient Education Patient Instructions Indication:BMI 25.0-25.9,adult Start:27-Oct-2017 Instruction Type:Provider Instructions for Treatment How to access health informa tion online Indication:BMI 25.0-25.9,adult Start:06-Mar-2017 Instruction Type:Patient Education How to access health informa tion online - Detail Indication:BMI 25.0-25.9,adult Start:06-Mar-2017 Instruction Type:Patient Education Patient Instructions Indication:BMI 25.0-25.9,adult Start:06-Mar-2017 Instruction Type:Provider Instructions for Treatment How to access health informa tion online Indication:Nasal congestion Start:09-Oct-2016 Instruction Type:Patient Education How to access health informa tion online - Detail Indication:Nasal congestion Start:09-Oct-2016 Instruction Type:Patient Education Patient Instructions Indication:Nasal congestion Start:09-Oct-2016 Instruction Type:Provider Instructions for Treatment How to access health informa tion online Indication:Need for prophylactic vaccination and inoculation against influenza Start:26-Mar-2016 Instruction Type:Patient Education How to access health informa tion online - Detail Indication:Need for prophylactic vaccination and inoculation against influenza Start:26-Mar-2016 Instruction Type:Patient Education Patient Instructions Indication:Need for prophylactic vaccination and inoculation against influenza Start:26-Mar-2016 Instruction Type:Provider Instructions for Treatment How to access health informa tion online - Detail Indication:Elevated fasting glucose Start:21-Jun-2015 Instruction Type:Patient Education How to access health informa tion online - Detail Indication:Elevated fasting glucose Start:21-Jun-2015 Instruction Type:Patient Education Patient Instructions Indication:Elevated fasting glucose Start:21-Jun-2015 Instruction Type:Provider Instructions for Treatment How to access health informa tion online Indication:Annual physical exam Start:29-Dec-2014 Instruction Type:Patient Education How to access health informa tion online - Detail Indication:Annual physical exam Start:29-Dec-2014 Instruction Type:Patient Education Patient Instructions Indication:Annual physical exam Start:29-Dec-2014 Instruction Type:Provider Instructions for Treatment Patient Instructions Indication:Vertigo Start:14-Nov-2014 Instruction Type:Provider Instructions for Treatment Patient Instructions Indication:Cough Start:25-Aug-2014 Instruction Type:Provider Instructions for Treatment Patient Instructions Indication:Dysthymic Start:04-Jul-2014 Instruction Type:Provider Instructions for Treatment Patient Instructions Indication:Dysthymic Start:29-Sep-2013 Instruction Type:Provider Instructions for Treatment [facility]; [facility] Work Phone: Instructions* Name Dates Details Patient Instructions Indication:Smoker Start:25-Jan-2022 Instruction Type:Provider Instructions for Treatment How to Access Health Informa tion Online using Patient Portal and [employer]rd [employer] Apps Indication:Smoker Start:25-Jan-2022 Instruction Type:Patient Education Patient Instructions Indication:Smoker Start:05-Oct-2021 Instruction Type:Provider Instructions for Treatment How to Access Health Informa tion Online using Patient Portal and [employer]rd [employer] Apps Indication:Smoker Start:05-Oct-2021 Instruction Type:Patient Education Patient Instructions Indication:Smoker Start:07-Jun-2021 Instruction Type:Provider Instructions for Treatment How to Access Health Informa tion Online using Patient Portal and [employer]rd [employer] Apps Indication:Smoker Start:07-Jun-2021 Instruction Type:Patient Education Patient Instructions Indication:Smoker Start:01-Jun-2021 Instruction Type:Provider Instructions for Treatment How to Access Health Informa tion Online using Patient Portal and [employer]rd [employer] Apps Indication:Smoker Start:01-Jun-2021 Instruction Type:Patient Education Patient Instructions Indication:BMI 26.0-26.9,adult Start:26-Jan-2021 Instruction Type:Provider Instructions for Treatment How to Access Health Informa tion Online using Patient Portal and [employer]rd [employer] Apps Indication:BMI 26.0-26.9,adult Start:26-Jan-2021 Instruction Type:Patient Education How to Access Health Informa tion Online using Patient Portal and [employer]rd [employer] Apps Indication:Smoker Start:22-Sep-2020 Instruction Type:Patient Education Patient Instructions Indication:Smoker Start:22-Sep-2020 Instruction Type:Provider Instructions for Treatment How to Access Health Informa tion Online using Patient Portal and [employer]rd [employer] Apps Indication:Nonsmoker Start:21-Jun-2020 Instruction Type:Patient Education Patient Instructions Indication:Nonsmoker Start:21-Jun-2020 Instruction Type:Provider Instructions for Treatment How to Access Health Informa tion Online using Patient Portal and [employer]rd [employer] Apps Indication:Nonsmoker Start:15-Jun-2020 Instruction Type:Patient Education Patient Instructions Indication:Nonsmoker Start:15-Jun-2020 Instruction Type:Provider Instructions for Treatment How to access health informa tion online Indication:BMI 24.0-24.9, adult Start:23-Mar-2020 Instruction Type:Patient Education How to access health informa tion online - Detail Indication:BMI 24.0-24.9, adult Start:23-Mar-2020 Instruction Type:Patient Education Patient Instructions Indication:BMI 24.0-24.9, adult Start:23-Mar-2020 Instruction Type:Provider Instructions for Treatment How to access health informa tion online Indication:Diabetes mellitus type II, controlled Start:08-Dec-2019 Instruction Type:Patient Education How to access health informa tion online - Detail Indication:Diabetes mellitus type II, controlled Start:08-Dec-2019 Instruction Type:Patient Education Patient Instructions Indication:Diabetes mellitus type II, controlled Start:08-Dec-2019 Instruction Type:Provider Instructions for Treatment How to access health informa tion online Indication:Diabetes mellitus type II, controlled Start:01-Sep-2019 Instruction Type:Patient Education How to access health informa tion online - Detail Indication:Diabetes mellitus type II, controlled Start:01-Sep-2019 Instruction Type:Patient Education Patient Instructions Indication:Diabetes mellitus type II, controlled Start:01-Sep-2019 Instruction Type:Provider Instructions for Treatment How to access health informa tion online Indication:Diabetes mellitus type II, controlled Start:29-Apr-2019 Instruction Type:Patient Education How to access health informa tion online - Detail Indication:Diabetes mellitus type II, controlled Start:29-Apr-2019 Instruction Type:Patient Education Patient Instructions Indication:Diabetes mellitus type II, controlled Start:29-Apr-2019 Instruction Type:Provider Instructions for Treatment How to access health informa tion online Indication:BMI 22.0-22.9, adult Start:24-Dec-2018 Instruction Type:Patient Education How to access health informa tion online - Detail Indication:BMI 22.0-22.9, adult Start:24-Dec-2018 Instruction Type:Patient Education Patient Instructions Indication:BMI 22.0-22.9, adult Start:24-Dec-2018 Instruction Type:Provider Instructions for Treatment How to access health informa tion online Indication:Smoker Start:14-May-2018 Instruction Type:Patient Education How to access health informa tion online - Detail Indication:Smoker Start:14-May-2018 Instruction Type:Patient Education Patient Instructions Indication:Smoker Start:14-May-2018 Instruction Type:Provider Instructions for Treatment How to access health informa tion online Indication:Smoker Start:16-Apr-2018 Instruction Type:Patient Education How to access health informa tion online - Detail Indication:Smoker Start:16-Apr-2018 Instruction Type:Patient Education Patient Instructions Indication:Smoker Start:16-Apr-2018 Instruction Type:Provider Instructions for Treatment How to access health informa tion online Indication:Nonsmoker Start:17-Nov-2017 Instruction Type:Patient Education How to access health informa tion online - Detail Indication:Nonsmoker Start:17-Nov-2017 Instruction Type:Patient Education Patient Instructions Indication:Nonsmoker Start:17-Nov-2017 Instruction Type:Provider Instructions for Treatment How to access health informa tion online Indication:Nonsmoker Start:03-Nov-2017 Instruction Type:Patient Education How to access health informa tion online - Detail Indication:Nonsmoker Start:03-Nov-2017 Instruction Type:Patient Education Patient Instructions Indication:Nonsmoker Start:03-Nov-2017 Instruction Type:Provider Instructions for Treatment Patient Instructions Indication:Nonsmoker Start:03-Nov-2017 Instruction Type:Provider Instructions for Treatment How to access health informa tion online Indication:BMI 25.0-25.9,adult Start:27-Oct-2017 Instruction Type:Patient Education How to access health informa tion online - Detail Indication:BMI 25.0-25.9,adult Start:27-Oct-2017 Instruction Type:Patient Education Patient Instructions Indication:BMI 25.0-25.9,adult Start:27-Oct-2017 Instruction Type:Provider Instructions for Treatment How to access health informa tion online Indication:BMI 25.0-25.9,adult Start:06-Mar-2017 Instruction Type:Patient Education How to access health informa tion online - Detail Indication:BMI 25.0-25.9,adult Start:06-Mar-2017 Instruction Type:Patient Education Patient Instructions Indication:BMI 25.0-25.9,adult Start:06-Mar-2017 Instruction Type:Provider Instructions for Treatment How to access health informa tion online Indication:Nasal congestion Start:09-Oct-2016 Instruction Type:Patient Education How to access health informa tion online - Detail Indication:Nasal congestion Start:09-Oct-2016 Instruction Type:Patient Education Patient Instructions Indication:Nasal congestion Start:09-Oct-2016 Instruction Type:Provider Instructions for Treatment How to access health informa tion online Indication:Need for prophylactic vaccination and inoculation against influenza Start:26-Mar-2016 Instruction Type:Patient Education How to access health informa tion online - Detail Indication:Need for prophylactic vaccination and inoculation against influenza Start:26-Mar-2016 Instruction Type:Patient Education Patient Instructions Indication:Need for prophylactic vaccination and inoculation against influenza Start:26-Mar-2016 Instruction Type:Provider Instructions for Treatment How to access health informa tion online - Detail Indication:Elevated fasting glucose Start:21-Jun-2015 Instruction Type:Patient Education How to access health informa tion online - Detail Indication:Elevated fasting glucose Start:21-Jun-2015 Instruction Type:Patient Education Patient Instructions Indication:Elevated fasting glucose Start:21-Jun-2015 Instruction Type:Provider Instructions for Treatment How to access health informa tion online Indication:Annual physical exam Start:29-Dec-2014 Instruction Type:Patient Education How to access health informa tion online - Detail Indication:Annual physical exam Start:29-Dec-2014 Instruction Type:Patient Education Patient Instructions Indication:Annual physical exam Start:29-Dec-2014 Instruction Type:Provider Instructions for Treatment Patient Instructions Indication:Vertigo Start:14-Nov-2014 Instruction Type:Provider Instructions for Treatment Patient Instructions Indication:Cough Start:25-Aug-2014 Instruction Type:Provider Instructions for Treatment Patient Instructions Indication:Dysthymic Start:04-Jul-2014 Instruction Type:Provider Instructions for Treatment Patient Instructions Indication:Dysthymic Start:29-Sep-2013 Instruction Type:Provider Instructions for Treatment [facility]; [facility] Work Phone: Instructions* Name Dates Details Patient Instructions Indication:Smoker Start:25-Jan-2022 Instruction Type:Provider Instructions for Treatment How to Access Health Informa tion Online using Patient Portal and [employer]rd [employer] Apps Indication:Smoker Start:25-Jan-2022 Instruction Type:Patient Education Patient Instructions Indication:Smoker Start:05-Oct-2021 Instruction Type:Provider Instructions for Treatment How to Access Health Informa tion Online using Patient Portal and [employer]rd [employer] Apps Indication:Smoker Start:05-Oct-2021 Instruction Type:Patient Education Patient Instructions Indication:Smoker Start:07-Jun-2021 Instruction Type:Provider Instructions for Treatment How to Access Health Informa tion Online using Patient Portal and [employer]rd [employer] Apps Indication:Smoker Start:07-Jun-2021 Instruction Type:Patient Education Patient Instructions Indication:Smoker Start:01-Jun-2021 Instruction Type:Provider Instructions for Treatment How to Access Health Informa tion Online using Patient Portal and [employer]rd [employer] Apps Indication:Smoker Start:01-Jun-2021 Instruction Type:Patient Education Patient Instructions Indication:BMI 26.0-26.9,adult Start:26-Jan-2021 Instruction Type:Provider Instructions for Treatment How to Access Health Informa tion Online using Patient Portal and [employer]rd [employer] Apps Indication:BMI 26.0-26.9,adult Start:26-Jan-2021 Instruction Type:Patient Education How to Access Health Informa tion Online using Patient Portal and [employer]rd [employer] Apps Indication:Smoker Start:22-Sep-2020 Instruction Type:Patient Education Patient Instructions Indication:Smoker Start:22-Sep-2020 Instruction Type:Provider Instructions for Treatment How to Access Health Informa tion Online using Patient Portal and [employer]rd [employer] Apps Indication:Nonsmoker Start:21-Jun-2020 Instruction Type:Patient Education Patient Instructions Indication:Nonsmoker Start:21-Jun-2020 Instruction Type:Provider Instructions for Treatment How to Access Health Informa tion Online using Patient Portal and [employer]rd [employer] Apps Indication:Nonsmoker Start:15-Jun-2020 Instruction Type:Patient Education Patient Instructions Indication:Nonsmoker Start:15-Jun-2020 Instruction Type:Provider Instructions for Treatment How to access health informa tion online Indication:BMI 24.0-24.9, adult Start:23-Mar-2020 Instruction Type:Patient Education How to access health informa tion online - Detail Indication:BMI 24.0-24.9, adult Start:23-Mar-2020 Instruction Type:Patient Education Patient Instructions Indication:BMI 24.0-24.9, adult Start:23-Mar-2020 Instruction Type:Provider Instructions for Treatment How to access health informa tion online Indication:Diabetes mellitus type II, controlled Start:08-Dec-2019 Instruction Type:Patient Education How to access health informa tion online - Detail Indication:Diabetes mellitus type II, controlled Start:08-Dec-2019 Instruction Type:Patient Education Patient Instructions Indication:Diabetes mellitus type II, controlled Start:08-Dec-2019 Instruction Type:Provider Instructions for Treatment How to access health informa tion online Indication:Diabetes mellitus type II, controlled Start:01-Sep-2019 Instruction Type:Patient Education How to access health informa tion online - Detail Indication:Diabetes mellitus type II, controlled Start:01-Sep-2019 Instruction Type:Patient Education Patient Instructions Indication:Diabetes mellitus type II, controlled Start:01-Sep-2019 Instruction Type:Provider Instructions for Treatment How to access health informa tion online Indication:Diabetes mellitus type II, controlled Start:29-Apr-2019 Instruction Type:Patient Education How to access health informa tion online - Detail Indication:Diabetes mellitus type II, controlled Start:29-Apr-2019 Instruction Type:Patient Education Patient Instructions Indication:Diabetes mellitus type II, controlled Start:29-Apr-2019 Instruction Type:Provider Instructions for Treatment How to access health informa tion online Indication:BMI 22.0-22.9, adult Start:24-Dec-2018 Instruction Type:Patient Education How to access health informa tion online - Detail Indication:BMI 22.0-22.9, adult Start:24-Dec-2018 Instruction Type:Patient Education Patient Instructions Indication:BMI 22.0-22.9, adult Start:24-Dec-2018 Instruction Type:Provider Instructions for Treatment How to access health informa tion online Indication:Smoker Start:14-May-2018 Instruction Type:Patient Education How to access health informa tion online - Detail Indication:Smoker Start:14-May-2018 Instruction Type:Patient Education Patient Instructions Indication:Smoker Start:14-May-2018 Instruction Type:Provider Instructions for Treatment How to access health informa tion online Indication:Smoker Start:16-Apr-2018 Instruction Type:Patient Education How to access health informa tion online - Detail Indication:Smoker Start:16-Apr-2018 Instruction Type:Patient Education Patient Instructions Indication:Smoker Start:16-Apr-2018 Instruction Type:Provider Instructions for Treatment How to access health informa tion online Indication:Nonsmoker Start:17-Nov-2017 Instruction Type:Patient Education How to access health informa tion online - Detail Indication:Nonsmoker Start:17-Nov-2017 Instruction Type:Patient Education Patient Instructions Indication:Nonsmoker Start:17-Nov-2017 Instruction Type:Provider Instructions for Treatment How to access health informa tion online Indication:Nonsmoker Start:03-Nov-2017 Instruction Type:Patient Education How to access health informa tion online - Detail Indication:Nonsmoker Start:03-Nov-2017 Instruction Type:Patient Education Patient Instructions Indication:Nonsmoker Start:03-Nov-2017 Instruction Type:Provider Instructions for Treatment Patient Instructions Indication:Nonsmoker Start:03-Nov-2017 Instruction Type:Provider Instructions for Treatment How to access health informa tion online Indication:BMI 25.0-25.9,adult Start:27-Oct-2017 Instruction Type:Patient Education How to access health informa tion online - Detail Indication:BMI 25.0-25.9,adult Start:27-Oct-2017 Instruction Type:Patient Education Patient Instructions Indication:BMI 25.0-25.9,adult Start:27-Oct-2017 Instruction Type:Provider Instructions for Treatment How to access health informa tion online Indication:BMI 25.0-25.9,adult Start:06-Mar-2017 Instruction Type:Patient Education How to access health informa tion online - Detail Indication:BMI 25.0-25.9,adult Start:06-Mar-2017 Instruction Type:Patient Education Patient Instructions Indication:BMI 25.0-25.9,adult Start:06-Mar-2017 Instruction Type:Provider Instructions for Treatment How to access health informa tion online Indication:Nasal congestion Start:09-Oct-2016 Instruction Type:Patient Education How to access health informa tion online - Detail Indication:Nasal congestion Start:09-Oct-2016 Instruction Type:Patient Education Patient Instructions Indication:Nasal congestion Start:09-Oct-2016 Instruction Type:Provider Instructions for Treatment How to access health informa tion online Indication:Need for prophylactic vaccination and inoculation against influenza Start:26-Mar-2016 Instruction Type:Patient Education How to access health informa tion online - Detail Indication:Need for prophylactic vaccination and inoculation against influenza Start:26-Mar-2016 Instruction Type:Patient Education Patient Instructions Indication:Need for prophylactic vaccination and inoculation against influenza Start:26-Mar-2016 Instruction Type:Provider Instructions for Treatment How to access health informa tion online - Detail Indication:Elevated fasting glucose Start:21-Jun-2015 Instruction Type:Patient Education How to access health informa tion online - Detail Indication:Elevated fasting glucose Start:21-Jun-2015 Instruction Type:Patient Education Patient Instructions Indication:Elevated fasting glucose Start:21-Jun-2015 Instruction Type:Provider Instructions for Treatment How to access health informa tion online Indication:Annual physical exam Start:29-Dec-2014 Instruction Type:Patient Education How to access health informa tion online - Detail Indication:Annual physical exam Start:29-Dec-2014 Instruction Type:Patient Education Patient Instructions Indication:Annual physical exam Start:29-Dec-2014 Instruction Type:Provider Instructions for Treatment Patient Instructions Indication:Vertigo Start:14-Nov-2014 Instruction Type:Provider Instructions for Treatment Patient Instructions Indication:Cough Start:25-Aug-2014 Instruction Type:Provider Instructions for Treatment Patient Instructions Indication:Dysthymic Start:04-Jul-2014 Instruction Type:Provider Instructions for Treatment Patient Instructions Indication:Dysthymic Start:29-Sep-2013 Instruction Type:Provider Instructions for Treatment [facility]; [facility] Work Phone: Instructions* Name Dates Details Patient Instructions Indication:Smoker Start:11-Apr-2022 Instruction Type:Provider Instructions for Treatment How to Access Health Informa tion Online using Patient Portal and [employer]rd [employer] Apps Indication:Smoker Start:11-Apr-2022 Instruction Type:Patient Education Patient Instructions Indication:Smoker Start:25-Jan-2022 Instruction Type:Provider Instructions for Treatment How to Access Health Informa tion Online using Patient Portal and [employer]rd [employer] Apps Indication:Smoker Start:25-Jan-2022 Instruction Type:Patient Education Patient Instructions Indication:Smoker Start:05-Oct-2021 Instruction Type:Provider Instructions for Treatment How to Access Health Informa tion Online using Patient Portal and [employer]rd [employer] Apps Indication:Smoker Start:05-Oct-2021 Instruction Type:Patient Education Patient Instructions Indication:Smoker Start:07-Jun-2021 Instruction Type:Provider Instructions for Treatment How to Access Health Informa tion Online using Patient Portal and [employer]rd [employer] Apps Indication:Smoker Start:07-Jun-2021 Instruction Type:Patient Education Patient Instructions Indication:Smoker Start:01-Jun-2021 Instruction Type:Provider Instructions for Treatment How to Access Health Informa tion Online using Patient Portal and [employer]rd [employer] Apps Indication:Smoker Start:01-Jun-2021 Instruction Type:Patient Education Patient Instructions Indication:BMI 26.0-26.9,adult Start:26-Jan-2021 Instruction Type:Provider Instructions for Treatment How to Access Health Informa tion Online using Patient Portal and [employer]rd [employer] Apps Indication:BMI 26.0-26.9,adult Start:26-Jan-2021 Instruction Type:Patient Education How to Access Health Informa tion Online using Patient Portal and [employer]rd [employer] Apps Indication:Smoker Start:22-Sep-2020 Instruction Type:Patient Education Patient Instructions Indication:Smoker Start:22-Sep-2020 Instruction Type:Provider Instructions for Treatment How to Access Health Informa tion Online using Patient Portal and [employer]rd [employer] Apps Indication:Nonsmoker Start:21-Jun-2020 Instruction Type:Patient Education Patient Instructions Indication:Nonsmoker Start:21-Jun-2020 Instruction Type:Provider Instructions for Treatment How to Access Health Informa tion Online using Patient Portal and [employer]rd [employer] Apps Indication:Nonsmoker Start:15-Jun-2020 Instruction Type:Patient Education Patient Instructions Indication:Nonsmoker Start:15-Jun-2020 Instruction Type:Provider Instructions for Treatment How to access health informa tion online Indication:BMI 24.0-24.9, adult Start:23-Mar-2020 Instruction Type:Patient Education How to access health informa tion online - Detail Indication:BMI 24.0-24.9, adult Start:23-Mar-2020 Instruction Type:Patient Education Patient Instructions Indication:BMI 24.0-24.9, adult Start:23-Mar-2020 Instruction Type:Provider Instructions for Treatment How to access health informa tion online Indication:Diabetes mellitus type II, controlled Start:08-Dec-2019 Instruction Type:Patient Education How to access health informa tion online - Detail Indication:Diabetes mellitus type II, controlled Start:08-Dec-2019 Instruction Type:Patient Education Patient Instructions Indication:Diabetes mellitus type II, controlled Start:08-Dec-2019 Instruction Type:Provider Instructions for Treatment How to access health informa tion online Indication:Diabetes mellitus type II, controlled Start:01-Sep-2019 Instruction Type:Patient Education How to access health informa tion online - Detail Indication:Diabetes mellitus type II, controlled Start:01-Sep-2019 Instruction Type:Patient Education Patient Instructions Indication:Diabetes mellitus type II, controlled Start:01-Sep-2019 Instruction Type:Provider Instructions for Treatment How to access health informa tion online Indication:Diabetes mellitus type II, controlled Start:29-Apr-2019 Instruction Type:Patient Education How to access health informa tion online - Detail Indication:Diabetes mellitus type II, controlled Start:29-Apr-2019 Instruction Type:Patient Education Patient Instructions Indication:Diabetes mellitus type II, controlled Start:29-Apr-2019 Instruction Type:Provider Instructions for Treatment How to access health informa tion online Indication:BMI 22.0-22.9, adult Start:24-Dec-2018 Instruction Type:Patient Education How to access health informa tion online - Detail Indication:BMI 22.0-22.9, adult Start:24-Dec-2018 Instruction Type:Patient Education Patient Instructions Indication:BMI 22.0-22.9, adult Start:24-Dec-2018 Instruction Type:Provider Instructions for Treatment How to access health informa tion online Indication:Smoker Start:14-May-2018 Instruction Type:Patient Education How to access health informa tion online - Detail Indication:Smoker Start:14-May-2018 Instruction Type:Patient Education Patient Instructions Indication:Smoker Start:14-May-2018 Instruction Type:Provider Instructions for Treatment How to access health informa tion online Indication:Smoker Start:16-Apr-2018 Instruction Type:Patient Education How to access health informa tion online - Detail Indication:Smoker Start:16-Apr-2018 Instruction Type:Patient Education Patient Instructions Indication:Smoker Start:16-Apr-2018 Instruction Type:Provider Instructions for Treatment How to access health informa tion online Indication:Nonsmoker Start:17-Nov-2017 Instruction Type:Patient Education How to access health informa tion online - Detail Indication:Nonsmoker Start:17-Nov-2017 Instruction Type:Patient Education Patient Instructions Indication:Nonsmoker Start:17-Nov-2017 Instruction Type:Provider Instructions for Treatment How to access health informa tion online Indication:Nonsmoker Start:03-Nov-2017 Instruction Type:Patient Education How to access health informa tion online - Detail Indication:Nonsmoker Start:03-Nov-2017 Instruction Type:Patient Education Patient Instructions Indication:Nonsmoker Start:03-Nov-2017 Instruction Type:Provider Instructions for Treatment Patient Instructions Indication:Nonsmoker Start:03-Nov-2017 Instruction Type:Provider Instructions for Treatment How to access health informa tion online Indication:BMI 25.0-25.9,adult Start:27-Oct-2017 Instruction Type:Patient Education How to access health informa tion online - Detail Indication:BMI 25.0-25.9,adult Start:27-Oct-2017 Instruction Type:Patient Education Patient Instructions Indication:BMI 25.0-25.9,adult Start:27-Oct-2017 Instruction Type:Provider Instructions for Treatment How to access health informa tion online Indication:BMI 25.0-25.9,adult Start:06-Mar-2017 Instruction Type:Patient Education How to access health informa tion online - Detail Indication:BMI 25.0-25.9,adult Start:06-Mar-2017 Instruction Type:Patient Education Patient Instructions Indication:BMI 25.0-25.9,adult Start:06-Mar-2017 Instruction Type:Provider Instructions for Treatment How to access health informa tion online Indication:Nasal congestion Start:09-Oct-2016 Instruction Type:Patient Education How to access health informa tion online - Detail Indication:Nasal congestion Start:09-Oct-2016 Instruction Type:Patient Education Patient Instructions Indication:Nasal congestion Start:09-Oct-2016 Instruction Type:Provider Instructions for Treatment How to access health informa tion online Indication:Need for prophylactic vaccination and inoculation against influenza Start:26-Mar-2016 Instruction Type:Patient Education How to access health informa tion online - Detail Indication:Need for prophylactic vaccination and inoculation against influenza Start:26-Mar-2016 Instruction Type:Patient Education Patient Instructions Indication:Need for prophylactic vaccination and inoculation against influenza Start:26-Mar-2016 Instruction Type:Provider Instructions for Treatment How to access health informa tion online - Detail Indication:Elevated fasting glucose Start:21-Jun-2015 Instruction Type:Patient Education How to access health informa tion online - Detail Indication:Elevated fasting glucose Start:21-Jun-2015 Instruction Type:Patient Education Patient Instructions Indication:Elevated fasting glucose Start:21-Jun-2015 Instruction Type:Provider Instructions for Treatment How to access health informa tion online Indication:Annual physical exam Start:29-Dec-2014 Instruction Type:Patient Education How to access health informa tion online - Detail Indication:Annual physical exam Start:29-Dec-2014 Instruction Type:Patient Education Patient Instructions Indication:Annual physical exam Start:29-Dec-2014 Instruction Type:Provider Instructions for Treatment Patient Instructions Indication:Vertigo Start:14-Nov-2014 Instruction Type:Provider Instructions for Treatment Patient Instructions Indication:Cough Start:25-Aug-2014 Instruction Type:Provider Instructions for Treatment Patient Instructions Indication:Dysthymic Start:04-Jul-2014 Instruction Type:Provider Instructions for Treatment Patient Instructions Indication:Dysthymic Start:29-Sep-2013 Instruction Type:Provider Instructions for Treatment [facility]; [facility] Work Phone: Instructions* Name Dates Details Patient Instructions Indication:Smoker Start:11-Apr-2022 Instruction Type:Provider Instructions for Treatment How to Access Health Informa tion Online using Patient Portal and [employer]rd [employer] Apps Indication:Smoker Start:11-Apr-2022 Instruction Type:Patient Education Patient Instructions Indication:Smoker Start:25-Jan-2022 Instruction Type:Provider Instructions for Treatment How to Access Health Informa tion Online using Patient Portal and [employer]rd [employer] Apps Indication:Smoker Start:25-Jan-2022 Instruction Type:Patient Education Patient Instructions Indication:Smoker Start:05-Oct-2021 Instruction Type:Provider Instructions for Treatment How to Access Health Informa tion Online using Patient Portal and [employer]rd [employer] Apps Indication:Smoker Start:05-Oct-2021 Instruction Type:Patient Education Patient Instructions Indication:Smoker Start:07-Jun-2021 Instruction Type:Provider Instructions for Treatment How to Access Health Informa tion Online using Patient Portal and [employer]rd [employer] Apps Indication:Smoker Start:07-Jun-2021 Instruction Type:Patient Education Patient Instructions Indication:Smoker Start:01-Jun-2021 Instruction Type:Provider Instructions for Treatment How to Access Health Informa tion Online using Patient Portal and [employer]rd [employer] Apps Indication:Smoker Start:01-Jun-2021 Instruction Type:Patient Education Patient Instructions Indication:BMI 26.0-26.9,adult Start:26-Jan-2021 Instruction Type:Provider Instructions for Treatment How to Access Health Informa tion Online using Patient Portal and [employer]rd [employer] Apps Indication:BMI 26.0-26.9,adult Start:26-Jan-2021 Instruction Type:Patient Education How to Access Health Informa tion Online using Patient Portal and [employer]rd [employer] Apps Indication:Smoker Start:22-Sep-2020 Instruction Type:Patient Education Patient Instructions Indication:Smoker Start:22-Sep-2020 Instruction Type:Provider Instructions for Treatment How to Access Health Informa tion Online using Patient Portal and [employer]rd [employer] Apps Indication:Nonsmoker Start:21-Jun-2020 Instruction Type:Patient Education Patient Instructions Indication:Nonsmoker Start:21-Jun-2020 Instruction Type:Provider Instructions for Treatment How to Access Health Informa tion Online using Patient Portal and [employer]rd [employer] Apps Indication:Nonsmoker Start:15-Jun-2020 Instruction Type:Patient Education Patient Instructions Indication:Nonsmoker Start:15-Jun-2020 Instruction Type:Provider Instructions for Treatment How to access health informa tion online Indication:BMI 24.0-24.9, adult Start:23-Mar-2020 Instruction Type:Patient Education How to access health informa tion online - Detail Indication:BMI 24.0-24.9, adult Start:23-Mar-2020 Instruction Type:Patient Education Patient Instructions Indication:BMI 24.0-24.9, adult Start:23-Mar-2020 Instruction Type:Provider Instructions for Treatment How to access health informa tion online Indication:Diabetes mellitus type II, controlled Start:08-Dec-2019 Instruction Type:Patient Education How to access health informa tion online - Detail Indication:Diabetes mellitus type II, controlled Start:08-Dec-2019 Instruction Type:Patient Education Patient Instructions Indication:Diabetes mellitus type II, controlled Start:08-Dec-2019 Instruction Type:Provider Instructions for Treatment How to access health informa tion online Indication:Diabetes mellitus type II, controlled Start:01-Sep-2019 Instruction Type:Patient Education How to access health informa tion online - Detail Indication:Diabetes mellitus type II, controlled Start:01-Sep-2019 Instruction Type:Patient Education Patient Instructions Indication:Diabetes mellitus type II, controlled Start:01-Sep-2019 Instruction Type:Provider Instructions for Treatment How to access health informa tion online Indication:Diabetes mellitus type II, controlled Start:29-Apr-2019 Instruction Type:Patient Education How to access health informa tion online - Detail Indication:Diabetes mellitus type II, controlled Start:29-Apr-2019 Instruction Type:Patient Education Patient Instructions Indication:Diabetes mellitus type II, controlled Start:29-Apr-2019 Instruction Type:Provider Instructions for Treatment How to access health informa tion online Indication:BMI 22.0-22.9, adult Start:24-Dec-2018 Instruction Type:Patient Education How to access health informa tion online - Detail Indication:BMI 22.0-22.9, adult Start:24-Dec-2018 Instruction Type:Patient Education Patient Instructions Indication:BMI 22.0-22.9, adult Start:24-Dec-2018 Instruction Type:Provider Instructions for Treatment How to access health informa tion online Indication:Smoker Start:14-May-2018 Instruction Type:Patient Education How to access health informa tion online - Detail Indication:Smoker Start:14-May-2018 Instruction Type:Patient Education Patient Instructions Indication:Smoker Start:14-May-2018 Instruction Type:Provider Instructions for Treatment How to access health informa tion online Indication:Smoker Start:16-Apr-2018 Instruction Type:Patient Education How to access health informa tion online - Detail Indication:Smoker Start:16-Apr-2018 Instruction Type:Patient Education Patient Instructions Indication:Smoker Start:16-Apr-2018 Instruction Type:Provider Instructions for Treatment How to access health informa tion online Indication:Nonsmoker Start:17-Nov-2017 Instruction Type:Patient Education How to access health informa tion online - Detail Indication:Nonsmoker Start:17-Nov-2017 Instruction Type:Patient Education Patient Instructions Indication:Nonsmoker Start:17-Nov-2017 Instruction Type:Provider Instructions for Treatment How to access health informa tion online Indication:Nonsmoker Start:03-Nov-2017 Instruction Type:Patient Education How to access health informa tion online - Detail Indication:Nonsmoker Start:03-Nov-2017 Instruction Type:Patient Education Patient Instructions Indication:Nonsmoker Start:03-Nov-2017 Instruction Type:Provider Instructions for Treatment Patient Instructions Indication:Nonsmoker Start:03-Nov-2017 Instruction Type:Provider Instructions for Treatment How to access health informa tion online Indication:BMI 25.0-25.9,adult Start:27-Oct-2017 Instruction Type:Patient Education How to access health informa tion online - Detail Indication:BMI 25.0-25.9,adult Start:27-Oct-2017 Instruction Type:Patient Education Patient Instructions Indication:BMI 25.0-25.9,adult Start:27-Oct-2017 Instruction Type:Provider Instructions for Treatment How to access health informa tion online Indication:BMI 25.0-25.9,adult Start:06-Mar-2017 Instruction Type:Patient Education How to access health informa tion online - Detail Indication:BMI 25.0-25.9,adult Start:06-Mar-2017 Instruction Type:Patient Education Patient Instructions Indication:BMI 25.0-25.9,adult Start:06-Mar-2017 Instruction Type:Provider Instructions for Treatment How to access health informa tion online Indication:Nasal congestion Start:09-Oct-2016 Instruction Type:Patient Education How to access health informa tion online - Detail Indication:Nasal congestion Start:09-Oct-2016 Instruction Type:Patient Education Patient Instructions Indication:Nasal congestion Start:09-Oct-2016 Instruction Type:Provider Instructions for Treatment How to access health informa tion online Indication:Need for prophylactic vaccination and inoculation against influenza Start:26-Mar-2016 Instruction Type:Patient Education How to access health informa tion online - Detail Indication:Need for prophylactic vaccination and inoculation against influenza Start:26-Mar-2016 Instruction Type:Patient Education Patient Instructions Indication:Need for prophylactic vaccination and inoculation against influenza Start:26-Mar-2016 Instruction Type:Provider Instructions for Treatment How to access health informa tion online - Detail Indication:Elevated fasting glucose Start:21-Jun-2015 Instruction Type:Patient Education How to access health informa tion online - Detail Indication:Elevated fasting glucose Start:21-Jun-2015 Instruction Type:Patient Education Patient Instructions Indication:Elevated fasting glucose Start:21-Jun-2015 Instruction Type:Provider Instructions for Treatment How to access health informa tion online Indication:Annual physical exam Start:29-Dec-2014 Instruction Type:Patient Education How to access health informa tion online - Detail Indication:Annual physical exam Start:29-Dec-2014 Instruction Type:Patient Education Patient Instructions Indication:Annual physical exam Start:29-Dec-2014 Instruction Type:Provider Instructions for Treatment Patient Instructions Indication:Vertigo Start:14-Nov-2014 Instruction Type:Provider Instructions for Treatment Patient Instructions Indication:Cough Start:25-Aug-2014 Instruction Type:Provider Instructions for Treatment Patient Instructions Indication:Dysthymic Start:04-Jul-2014 Instruction Type:Provider Instructions for Treatment Patient Instructions Indication:Dysthymic Start:29-Sep-2013 Instruction Type:Provider Instructions for Treatment [facility]; [facility] Work Phone: Instructions* Name Dates Details Patient Instructions Indication:BMI 25.0-25.9,adult Start:02-May-2022 Instruction Type:Provider Instructions for Treatment How to Access Health Informa tion Online using Patient Portal and [employer]rd [employer] Apps Indication:BMI 25.0-25.9,adult Start:02-May-2022 Instruction Type:Patient Education Patient Instructions Indication:Smoker Start:11-Apr-2022 Instruction Type:Provider Instructions for Treatment How to Access Health Informa tion Online using Patient Portal and [employer]rd [employer] Apps Indication:Smoker Start:11-Apr-2022 Instruction Type:Patient Education Patient Instructions Indication:Smoker Start:25-Jan-2022 Instruction Type:Provider Instructions for Treatment How to Access Health Informa tion Online using Patient Portal and [employer]rd [employer] Apps Indication:Smoker Start:25-Jan-2022 Instruction Type:Patient Education Patient Instructions Indication:Smoker Start:05-Oct-2021 Instruction Type:Provider Instructions for Treatment How to Access Health Informa tion Online using Patient Portal and [employer]rd [employer] Apps Indication:Smoker Start:05-Oct-2021 Instruction Type:Patient Education Patient Instructions Indication:Smoker Start:07-Jun-2021 Instruction Type:Provider Instructions for Treatment How to Access Health Informa tion Online using Patient Portal and [employer]rd [employer] Apps Indication:Smoker Start:07-Jun-2021 Instruction Type:Patient Education Patient Instructions Indication:Smoker Start:01-Jun-2021 Instruction Type:Provider Instructions for Treatment How to Access Health Informa tion Online using Patient Portal and [employer]rd [employer] Apps Indication:Smoker Start:01-Jun-2021 Instruction Type:Patient Education Patient Instructions Indication:BMI 26.0-26.9,adult Start:26-Jan-2021 Instruction Type:Provider Instructions for Treatment How to Access Health Informa tion Online using Patient Portal and [employer]rd [employer] Apps Indication:BMI 26.0-26.9,adult Start:26-Jan-2021 Instruction Type:Patient Education How to Access Health Informa tion Online using Patient Portal and [employer]rd [employer] Apps Indication:Smoker Start:22-Sep-2020 Instruction Type:Patient Education Patient Instructions Indication:Smoker Start:22-Sep-2020 Instruction Type:Provider Instructions for Treatment How to Access Health Informa tion Online using Patient Portal and [employer]rd [employer] Apps Indication:Nonsmoker Start:21-Jun-2020 Instruction Type:Patient Education Patient Instructions Indication:Nonsmoker Start:21-Jun-2020 Instruction Type:Provider Instructions for Treatment How to Access Health Informa tion Online using Patient Portal and [employer]rd [employer] Apps Indication:Nonsmoker Start:15-Jun-2020 Instruction Type:Patient Education Patient Instructions Indication:Nonsmoker Start:15-Jun-2020 Instruction Type:Provider Instructions for Treatment How to access health informa tion online Indication:BMI 24.0-24.9, adult Start:23-Mar-2020 Instruction Type:Patient Education How to access health informa tion online - Detail Indication:BMI 24.0-24.9, adult Start:23-Mar-2020 Instruction Type:Patient Education Patient Instructions Indication:BMI 24.0-24.9, adult Start:23-Mar-2020 Instruction Type:Provider Instructions for Treatment How to access health informa tion online Indication:Diabetes mellitus type II, controlled Start:08-Dec-2019 Instruction Type:Patient Education How to access health informa tion online - Detail Indication:Diabetes mellitus type II, controlled Start:08-Dec-2019 Instruction Type:Patient Education Patient Instructions Indication:Diabetes mellitus type II, controlled Start:08-Dec-2019 Instruction Type:Provider Instructions for Treatment How to access health informa tion online Indication:Diabetes mellitus type II, controlled Start:01-Sep-2019 Instruction Type:Patient Education How to access health informa tion online - Detail Indication:Diabetes mellitus type II, controlled Start:01-Sep-2019 Instruction Type:Patient Education Patient Instructions Indication:Diabetes mellitus type II, controlled Start:01-Sep-2019 Instruction Type:Provider Instructions for Treatment How to access health informa tion online Indication:Diabetes mellitus type II, controlled Start:29-Apr-2019 Instruction Type:Patient Education How to access health informa tion online - Detail Indication:Diabetes mellitus type II, controlled Start:29-Apr-2019 Instruction Type:Patient Education Patient Instructions Indication:Diabetes mellitus type II, controlled Start:29-Apr-2019 Instruction Type:Provider Instructions for Treatment How to access health informa tion online Indication:BMI 22.0-22.9, adult Start:24-Dec-2018 Instruction Type:Patient Education How to access health informa tion online - Detail Indication:BMI 22.0-22.9, adult Start:24-Dec-2018 Instruction Type:Patient Education Patient Instructions Indication:BMI 22.0-22.9, adult Start:24-Dec-2018 Instruction Type:Provider Instructions for Treatment How to access health informa tion online Indication:Smoker Start:14-May-2018 Instruction Type:Patient Education How to access health informa tion online - Detail Indication:Smoker Start:14-May-2018 Instruction Type:Patient Education Patient Instructions Indication:Smoker Start:14-May-2018 Instruction Type:Provider Instructions for Treatment How to access health informa tion online Indication:Smoker Start:16-Apr-2018 Instruction Type:Patient Education How to access health informa tion online - Detail Indication:Smoker Start:16-Apr-2018 Instruction Type:Patient Education Patient Instructions Indication:Smoker Start:16-Apr-2018 Instruction Type:Provider Instructions for Treatment How to access health informa tion online Indication:Nonsmoker Start:17-Nov-2017 Instruction Type:Patient Education How to access health informa tion online - Detail Indication:Nonsmoker Start:17-Nov-2017 Instruction Type:Patient Education Patient Instructions Indication:Nonsmoker Start:17-Nov-2017 Instruction Type:Provider Instructions for Treatment How to access health informa tion online Indication:Nonsmoker Start:03-Nov-2017 Instruction Type:Patient Education How to access health informa tion online - Detail Indication:Nonsmoker Start:03-Nov-2017 Instruction Type:Patient Education Patient Instructions Indication:Nonsmoker Start:03-Nov-2017 Instruction Type:Provider Instructions for Treatment Patient Instructions Indication:Nonsmoker Start:03-Nov-2017 Instruction Type:Provider Instructions for Treatment How to access health informa tion online Indication:BMI 25.0-25.9,adult Start:27-Oct-2017 Instruction Type:Patient Education How to access health informa tion online - Detail Indication:BMI 25.0-25.9,adult Start:27-Oct-2017 Instruction Type:Patient Education Patient Instructions Indication:BMI 25.0-25.9,adult Start:27-Oct-2017 Instruction Type:Provider Instructions for Treatment How to access health informa tion online Indication:BMI 25.0-25.9,adult Start:06-Mar-2017 Instruction Type:Patient Education How to access health informa tion online - Detail Indication:BMI 25.0-25.9,adult Start:06-Mar-2017 Instruction Type:Patient Education Patient Instructions Indication:BMI 25.0-25.9,adult Start:06-Mar-2017 Instruction Type:Provider Instructions for Treatment How to access health informa tion online Indication:Nasal congestion Start:09-Oct-2016 Instruction Type:Patient Education How to access health informa tion online - Detail Indication:Nasal congestion Start:09-Oct-2016 Instruction Type:Patient Education Patient Instructions Indication:Nasal congestion Start:09-Oct-2016 Instruction Type:Provider Instructions for Treatment How to access health informa tion online Indication:Need for prophylactic vaccination and inoculation against influenza Start:26-Mar-2016 Instruction Type:Patient Education How to access health informa tion online - Detail Indication:Need for prophylactic vaccination and inoculation against influenza Start:26-Mar-2016 Instruction Type:Patient Education Patient Instructions Indication:Need for prophylactic vaccination and inoculation against influenza Start:26-Mar-2016 Instruction Type:Provider Instructions for Treatment How to access health informa tion online - Detail Indication:Elevated fasting glucose Start:21-Jun-2015 Instruction Type:Patient Education How to access health informa tion online - Detail Indication:Elevated fasting glucose Start:21-Jun-2015 Instruction Type:Patient Education Patient Instructions Indication:Elevated fasting glucose Start:21-Jun-2015 Instruction Type:Provider Instructions for Treatment How to access health informa tion online Indication:Annual physical exam Start:29-Dec-2014 Instruction Type:Patient Education How to access health informa tion online - Detail Indication:Annual physical exam Start:29-Dec-2014 Instruction Type:Patient Education Patient Instructions Indication:Annual physical exam Start:29-Dec-2014 Instruction Type:Provider Instructions for Treatment Patient Instructions Indication:Vertigo Start:14-Nov-2014 Instruction Type:Provider Instructions for Treatment Patient Instructions Indication:Cough Start:25-Aug-2014 Instruction Type:Provider Instructions for Treatment Patient Instructions Indication:Dysthymic Start:04-Jul-2014 Instruction Type:Provider Instructions for Treatment Patient Instructions Indication:Dysthymic Start:29-Sep-2013 Instruction Type:Provider Instructions for Treatment [facility] Work Phone: Instructions* Name Dates Details Patient Instructions Indication:BMI 25.0-25.9,adult Start:02-May-2022 Instruction Type:Provider Instructions for Treatment How to Access Health Informa tion Online using Patient Portal and [employer]rd [employer] Apps Indication:BMI 25.0-25.9,adult Start:02-May-2022 Instruction Type:Patient Education Patient Instructions Indication:Smoker Start:11-Apr-2022 Instruction Type:Provider Instructions for Treatment How to Access Health Informa tion Online using Patient Portal and [employer]rd [employer] Apps Indication:Smoker Start:11-Apr-2022 Instruction Type:Patient Education Patient Instructions Indication:Smoker Start:25-Jan-2022 Instruction Type:Provider Instructions for Treatment How to Access Health Informa tion Online using Patient Portal and [employer]rd [employer] Apps Indication:Smoker Start:25-Jan-2022 Instruction Type:Patient Education Patient Instructions Indication:Smoker Start:05-Oct-2021 Instruction Type:Provider Instructions for Treatment How to Access Health Informa tion Online using Patient Portal and [employer]rd [employer] Apps Indication:Smoker Start:05-Oct-2021 Instruction Type:Patient Education Patient Instructions Indication:Smoker Start:07-Jun-2021 Instruction Type:Provider Instructions for Treatment How to Access Health Informa tion Online using Patient Portal and [employer]rd [employer] Apps Indication:Smoker Start:07-Jun-2021 Instruction Type:Patient Education Patient Instructions Indication:Smoker Start:01-Jun-2021 Instruction Type:Provider Instructions for Treatment How to Access Health Informa tion Online using Patient Portal and [employer]rd [employer] Apps Indication:Smoker Start:01-Jun-2021 Instruction Type:Patient Education Patient Instructions Indication:BMI 26.0-26.9,adult Start:26-Jan-2021 Instruction Type:Provider Instructions for Treatment How to Access Health Informa tion Online using Patient Portal and [employer]rd [employer] Apps Indication:BMI 26.0-26.9,adult Start:26-Jan-2021 Instruction Type:Patient Education How to Access Health Informa tion Online using Patient Portal and [employer]rd [employer] Apps Indication:Smoker Start:22-Sep-2020 Instruction Type:Patient Education Patient Instructions Indication:Smoker Start:22-Sep-2020 Instruction Type:Provider Instructions for Treatment How to Access Health Informa tion Online using Patient Portal and [employer]rd [employer] Apps Indication:Nonsmoker Start:21-Jun-2020 Instruction Type:Patient Education Patient Instructions Indication:Nonsmoker Start:21-Jun-2020 Instruction Type:Provider Instructions for Treatment How to Access Health Informa tion Online using Patient Portal and [employer]rd [employer] Apps Indication:Nonsmoker Start:15-Jun-2020 Instruction Type:Patient Education Patient Instructions Indication:Nonsmoker Start:15-Jun-2020 Instruction Type:Provider Instructions for Treatment How to access health informa tion online Indication:BMI 24.0-24.9, adult Start:23-Mar-2020 Instruction Type:Patient Education How to access health informa tion online - Detail Indication:BMI 24.0-24.9, adult Start:23-Mar-2020 Instruction Type:Patient Education Patient Instructions Indication:BMI 24.0-24.9, adult Start:23-Mar-2020 Instruction Type:Provider Instructions for Treatment How to access health informa tion online Indication:Diabetes mellitus type II, controlled Start:08-Dec-2019 Instruction Type:Patient Education How to access health informa tion online - Detail Indication:Diabetes mellitus type II, controlled Start:08-Dec-2019 Instruction Type:Patient Education Patient Instructions Indication:Diabetes mellitus type II, controlled Start:08-Dec-2019 Instruction Type:Provider Instructions for Treatment How to access health informa tion online Indication:Diabetes mellitus type II, controlled Start:01-Sep-2019 Instruction Type:Patient Education How to access health informa tion online - Detail Indication:Diabetes mellitus type II, controlled Start:01-Sep-2019 Instruction Type:Patient Education Patient Instructions Indication:Diabetes mellitus type II, controlled Start:01-Sep-2019 Instruction Type:Provider Instructions for Treatment How to access health informa tion online Indication:Diabetes mellitus type II, controlled Start:29-Apr-2019 Instruction Type:Patient Education How to access health informa tion online - Detail Indication:Diabetes mellitus type II, controlled Start:29-Apr-2019 Instruction Type:Patient Education Patient Instructions Indication:Diabetes mellitus type II, controlled Start:29-Apr-2019 Instruction Type:Provider Instructions for Treatment How to access health informa tion online Indication:BMI 22.0-22.9, adult Start:24-Dec-2018 Instruction Type:Patient Education How to access health informa tion online - Detail Indication:BMI 22.0-22.9, adult Start:24-Dec-2018 Instruction Type:Patient Education Patient Instructions Indication:BMI 22.0-22.9, adult Start:24-Dec-2018 Instruction Type:Provider Instructions for Treatment How to access health informa tion online Indication:Smoker Start:14-May-2018 Instruction Type:Patient Education How to access health informa tion online - Detail Indication:Smoker Start:14-May-2018 Instruction Type:Patient Education Patient Instructions Indication:Smoker Start:14-May-2018 Instruction Type:Provider Instructions for Treatment How to access health informa tion online Indication:Smoker Start:16-Apr-2018 Instruction Type:Patient Education How to access health informa tion online - Detail Indication:Smoker Start:16-Apr-2018 Instruction Type:Patient Education Patient Instructions Indication:Smoker Start:16-Apr-2018 Instruction Type:Provider Instructions for Treatment How to access health informa tion online Indication:Nonsmoker Start:17-Nov-2017 Instruction Type:Patient Education How to access health informa tion online - Detail Indication:Nonsmoker Start:17-Nov-2017 Instruction Type:Patient Education Patient Instructions Indication:Nonsmoker Start:17-Nov-2017 Instruction Type:Provider Instructions for Treatment How to access health informa tion online Indication:Nonsmoker Start:03-Nov-2017 Instruction Type:Patient Education How to access health informa tion online - Detail Indication:Nonsmoker Start:03-Nov-2017 Instruction Type:Patient Education Patient Instructions Indication:Nonsmoker Start:03-Nov-2017 Instruction Type:Provider Instructions for Treatment Patient Instructions Indication:Nonsmoker Start:03-Nov-2017 Instruction Type:Provider Instructions for Treatment How to access health informa tion online Indication:BMI 25.0-25.9,adult Start:27-Oct-2017 Instruction Type:Patient Education How to access health informa tion online - Detail Indication:BMI 25.0-25.9,adult Start:27-Oct-2017 Instruction Type:Patient Education Patient Instructions Indication:BMI 25.0-25.9,adult Start:27-Oct-2017 Instruction Type:Provider Instructions for Treatment How to access health informa tion online Indication:BMI 25.0-25.9,adult Start:06-Mar-2017 Instruction Type:Patient Education How to access health informa tion online - Detail Indication:BMI 25.0-25.9,adult Start:06-Mar-2017 Instruction Type:Patient Education Patient Instructions Indication:BMI 25.0-25.9,adult Start:06-Mar-2017 Instruction Type:Provider Instructions for Treatment How to access health informa tion online Indication:Nasal congestion Start:09-Oct-2016 Instruction Type:Patient Education How to access health informa tion online - Detail Indication:Nasal congestion Start:09-Oct-2016 Instruction Type:Patient Education Patient Instructions Indication:Nasal congestion Start:09-Oct-2016 Instruction Type:Provider Instructions for Treatment How to access health informa tion online Indication:Need for prophylactic vaccination and inoculation against influenza Start:26-Mar-2016 Instruction Type:Patient Education How to access health informa tion online - Detail Indication:Need for prophylactic vaccination and inoculation against influenza Start:26-Mar-2016 Instruction Type:Patient Education Patient Instructions Indication:Need for prophylactic vaccination and inoculation against influenza Start:26-Mar-2016 Instruction Type:Provider Instructions for Treatment How to access health informa tion online - Detail Indication:Elevated fasting glucose Start:21-Jun-2015 Instruction Type:Patient Education How to access health informa tion online - Detail Indication:Elevated fasting glucose Start:21-Jun-2015 Instruction Type:Patient Education Patient Instructions Indication:Elevated fasting glucose Start:21-Jun-2015 Instruction Type:Provider Instructions for Treatment How to access health informa tion online Indication:Annual physical exam Start:29-Dec-2014 Instruction Type:Patient Education How to access health informa tion online - Detail Indication:Annual physical exam Start:29-Dec-2014 Instruction Type:Patient Education Patient Instructions Indication:Annual physical exam Start:29-Dec-2014 Instruction Type:Provider Instructions for Treatment Patient Instructions Indication:Vertigo Start:14-Nov-2014 Instruction Type:Provider Instructions for Treatment Patient Instructions Indication:Cough Start:25-Aug-2014 Instruction Type:Provider Instructions for Treatment Patient Instructions Indication:Dysthymic Start:04-Jul-2014 Instruction Type:Provider Instructions for Treatment Patient Instructions Indication:Dysthymic Start:29-Sep-2013 Instruction Type:Provider Instructions for Treatment [facility]; [facility] Work Phone: Instructions* Name Dates Details Patient Instructions Indication:BMI 25.0-25.9,adult Start:02-May-2022 Instruction Type:Provider Instructions for Treatment How to Access Health Informa tion Online using Patient Portal and [employer]rd [employer] Apps Indication:BMI 25.0-25.9,adult Start:02-May-2022 Instruction Type:Patient Education Patient Instructions Indication:Smoker Start:11-Apr-2022 Instruction Type:Provider Instructions for Treatment How to Access Health Informa tion Online using Patient Portal and [employer]rd [employer] Apps Indication:Smoker Start:11-Apr-2022 Instruction Type:Patient Education Patient Instructions Indication:Smoker Start:25-Jan-2022 Instruction Type:Provider Instructions for Treatment How to Access Health Informa tion Online using Patient Portal and [employer]rd [employer] Apps Indication:Smoker Start:25-Jan-2022 Instruction Type:Patient Education Patient Instructions Indication:Smoker Start:05-Oct-2021 Instruction Type:Provider Instructions for Treatment How to Access Health Informa tion Online using Patient Portal and [employer]rd [employer] Apps Indication:Smoker Start:05-Oct-2021 Instruction Type:Patient Education Patient Instructions Indication:Smoker Start:07-Jun-2021 Instruction Type:Provider Instructions for Treatment How to Access Health Informa tion Online using Patient Portal and [employer]rd [employer] Apps Indication:Smoker Start:07-Jun-2021 Instruction Type:Patient Education Patient Instructions Indication:Smoker Start:01-Jun-2021 Instruction Type:Provider Instructions for Treatment How to Access Health Informa tion Online using Patient Portal and [employer]rd [employer] Apps Indication:Smoker Start:01-Jun-2021 Instruction Type:Patient Education Patient Instructions Indication:BMI 26.0-26.9,adult Start:26-Jan-2021 Instruction Type:Provider Instructions for Treatment How to Access Health Informa tion Online using Patient Portal and [employer]rd [employer] Apps Indication:BMI 26.0-26.9,adult Start:26-Jan-2021 Instruction Type:Patient Education How to Access Health Informa tion Online using Patient Portal and [employer]rd [employer] Apps Indication:Smoker Start:22-Sep-2020 Instruction Type:Patient Education Patient Instructions Indication:Smoker Start:22-Sep-2020 Instruction Type:Provider Instructions for Treatment How to Access Health Informa tion Online using Patient Portal and [employer]rd [employer] Apps Indication:Nonsmoker Start:21-Jun-2020 Instruction Type:Patient Education Patient Instructions Indication:Nonsmoker Start:21-Jun-2020 Instruction Type:Provider Instructions for Treatment How to Access Health Informa tion Online using Patient Portal and [employer]rd [employer] Apps Indication:Nonsmoker Start:15-Jun-2020 Instruction Type:Patient Education Patient Instructions Indication:Nonsmoker Start:15-Jun-2020 Instruction Type:Provider Instructions for Treatment How to access health informa tion online Indication:BMI 24.0-24.9, adult Start:23-Mar-2020 Instruction Type:Patient Education How to access health informa tion online - Detail Indication:BMI 24.0-24.9, adult Start:23-Mar-2020 Instruction Type:Patient Education Patient Instructions Indication:BMI 24.0-24.9, adult Start:23-Mar-2020 Instruction Type:Provider Instructions for Treatment How to access health informa tion online Indication:Diabetes mellitus type II, controlled Start:08-Dec-2019 Instruction Type:Patient Education How to access health informa tion online - Detail Indication:Diabetes mellitus type II, controlled Start:08-Dec-2019 Instruction Type:Patient Education Patient Instructions Indication:Diabetes mellitus type II, controlled Start:08-Dec-2019 Instruction Type:Provider Instructions for Treatment How to access health informa tion online Indication:Diabetes mellitus type II, controlled Start:01-Sep-2019 Instruction Type:Patient Education How to access health informa tion online - Detail Indication:Diabetes mellitus type II, controlled Start:01-Sep-2019 Instruction Type:Patient Education Patient Instructions Indication:Diabetes mellitus type II, controlled Start:01-Sep-2019 Instruction Type:Provider Instructions for Treatment How to access health informa tion online Indication:Diabetes mellitus type II, controlled Start:29-Apr-2019 Instruction Type:Patient Education How to access health informa tion online - Detail Indication:Diabetes mellitus type II, controlled Start:29-Apr-2019 Instruction Type:Patient Education Patient Instructions Indication:Diabetes mellitus type II, controlled Start:29-Apr-2019 Instruction Type:Provider Instructions for Treatment How to access health informa tion online Indication:BMI 22.0-22.9, adult Start:24-Dec-2018 Instruction Type:Patient Education How to access health informa tion online - Detail Indication:BMI 22.0-22.9, adult Start:24-Dec-2018 Instruction Type:Patient Education Patient Instructions Indication:BMI 22.0-22.9, adult Start:24-Dec-2018 Instruction Type:Provider Instructions for Treatment How to access health informa tion online Indication:Smoker Start:14-May-2018 Instruction Type:Patient Education How to access health informa tion online - Detail Indication:Smoker Start:14-May-2018 Instruction Type:Patient Education Patient Instructions Indication:Smoker Start:14-May-2018 Instruction Type:Provider Instructions for Treatment How to access health informa tion online Indication:Smoker Start:16-Apr-2018 Instruction Type:Patient Education How to access health informa tion online - Detail Indication:Smoker Start:16-Apr-2018 Instruction Type:Patient Education Patient Instructions Indication:Smoker Start:16-Apr-2018 Instruction Type:Provider Instructions for Treatment How to access health informa tion online Indication:Nonsmoker Start:17-Nov-2017 Instruction Type:Patient Education How to access health informa tion online - Detail Indication:Nonsmoker Start:17-Nov-2017 Instruction Type:Patient Education Patient Instructions Indication:Nonsmoker Start:17-Nov-2017 Instruction Type:Provider Instructions for Treatment How to access health informa tion online Indication:Nonsmoker Start:03-Nov-2017 Instruction Type:Patient Education How to access health informa tion online - Detail Indication:Nonsmoker Start:03-Nov-2017 Instruction Type:Patient Education Patient Instructions Indication:Nonsmoker Start:03-Nov-2017 Instruction Type:Provider Instructions for Treatment Patient Instructions Indication:Nonsmoker Start:03-Nov-2017 Instruction Type:Provider Instructions for Treatment How to access health informa tion online Indication:BMI 25.0-25.9,adult Start:27-Oct-2017 Instruction Type:Patient Education How to access health informa tion online - Detail Indication:BMI 25.0-25.9,adult Start:27-Oct-2017 Instruction Type:Patient Education Patient Instructions Indication:BMI 25.0-25.9,adult Start:27-Oct-2017 Instruction Type:Provider Instructions for Treatment How to access health informa tion online Indication:BMI 25.0-25.9,adult Start:06-Mar-2017 Instruction Type:Patient Education How to access health informa tion online - Detail Indication:BMI 25.0-25.9,adult Start:06-Mar-2017 Instruction Type:Patient Education Patient Instructions Indication:BMI 25.0-25.9,adult Start:06-Mar-2017 Instruction Type:Provider Instructions for Treatment How to access health informa tion online Indication:Nasal congestion Start:09-Oct-2016 Instruction Type:Patient Education How to access health informa tion online - Detail Indication:Nasal congestion Start:09-Oct-2016 Instruction Type:Patient Education Patient Instructions Indication:Nasal congestion Start:09-Oct-2016 Instruction Type:Provider Instructions for Treatment How to access health informa tion online Indication:Need for prophylactic vaccination and inoculation against influenza Start:26-Mar-2016 Instruction Type:Patient Education How to access health informa tion online - Detail Indication:Need for prophylactic vaccination and inoculation against influenza Start:26-Mar-2016 Instruction Type:Patient Education Patient Instructions Indication:Need for prophylactic vaccination and inoculation against influenza Start:26-Mar-2016 Instruction Type:Provider Instructions for Treatment How to access health informa tion online - Detail Indication:Elevated fasting glucose Start:21-Jun-2015 Instruction Type:Patient Education How to access health informa tion online - Detail Indication:Elevated fasting glucose Start:21-Jun-2015 Instruction Type:Patient Education Patient Instructions Indication:Elevated fasting glucose Start:21-Jun-2015 Instruction Type:Provider Instructions for Treatment How to access health informa tion online Indication:Annual physical exam Start:29-Dec-2014 Instruction Type:Patient Education How to access health informa tion online - Detail Indication:Annual physical exam Start:29-Dec-2014 Instruction Type:Patient Education Patient Instructions Indication:Annual physical exam Start:29-Dec-2014 Instruction Type:Provider Instructions for Treatment Patient Instructions Indication:Vertigo Start:14-Nov-2014 Instruction Type:Provider Instructions for Treatment Patient Instructions Indication:Cough Start:25-Aug-2014 Instruction Type:Provider Instructions for Treatment Patient Instructions Indication:Dysthymic Start:04-Jul-2014 Instruction Type:Provider Instructions for Treatment Patient Instructions Indication:Dysthymic Start:29-Sep-2013 Instruction Type:Provider Instructions for Treatment [facility]; [facility] Work Phone: Instructions* Name Dates Details Patient Instructions Indication:BMI 25.0-25.9,adult Start:08-Aug-2022 Instruction Type:Provider Instructions for Treatment How to Access Health Informa tion Online using Patient Portal and [employer]rd [employer] Apps Indication:BMI 25.0-25.9,adult Start:08-Aug-2022 Instruction Type:Patient Education Patient Instructions Indication:BMI 25.0-25.9,adult Start:02-May-2022 Instruction Type:Provider Instructions for Treatment How to Access Health Informa tion Online using Patient Portal and [employer]rd [employer] Apps Indication:BMI 25.0-25.9,adult Start:02-May-2022 Instruction Type:Patient Education Patient Instructions Indication:Smoker Start:11-Apr-2022 Instruction Type:Provider Instructions for Treatment How to Access Health Informa tion Online using Patient Portal and [employer]rd [employer] Apps Indication:Smoker Start:11-Apr-2022 Instruction Type:Patient Education Patient Instructions Indication:Smoker Start:25-Jan-2022 Instruction Type:Provider Instructions for Treatment How to Access Health Informa tion Online using Patient Portal and [employer]rd [employer] Apps Indication:Smoker Start:25-Jan-2022 Instruction Type:Patient Education Patient Instructions Indication:Smoker Start:05-Oct-2021 Instruction Type:Provider Instructions for Treatment How to Access Health Informa tion Online using Patient Portal and [employer]rd [employer] Apps Indication:Smoker Start:05-Oct-2021 Instruction Type:Patient Education Patient Instructions Indication:Smoker Start:07-Jun-2021 Instruction Type:Provider Instructions for Treatment How to Access Health Informa tion Online using Patient Portal and [employer]rd [employer] Apps Indication:Smoker Start:07-Jun-2021 Instruction Type:Patient Education Patient Instructions Indication:Smoker Start:01-Jun-2021 Instruction Type:Provider Instructions for Treatment How to Access Health Informa tion Online using Patient Portal and [employer]rd [employer] Apps Indication:Smoker Start:01-Jun-2021 Instruction Type:Patient Education Patient Instructions Indication:BMI 26.0-26.9,adult Start:26-Jan-2021 Instruction Type:Provider Instructions for Treatment How to Access Health Informa tion Online using Patient Portal and [employer]rd [employer] Apps Indication:BMI 26.0-26.9,adult Start:26-Jan-2021 Instruction Type:Patient Education How to Access Health Informa tion Online using Patient Portal and [employer]rd [employer] Apps Indication:Smoker Start:22-Sep-2020 Instruction Type:Patient Education Patient Instructions Indication:Smoker Start:22-Sep-2020 Instruction Type:Provider Instructions for Treatment How to Access Health Informa tion Online using Patient Portal and [employer]rd [employer] Apps Indication:Nonsmoker Start:21-Jun-2020 Instruction Type:Patient Education Patient Instructions Indication:Nonsmoker Start:21-Jun-2020 Instruction Type:Provider Instructions for Treatment How to Access Health Informa tion Online using Patient Portal and [employer]rd [employer] Apps Indication:Nonsmoker Start:15-Jun-2020 Instruction Type:Patient Education Patient Instructions Indication:Nonsmoker Start:15-Jun-2020 Instruction Type:Provider Instructions for Treatment How to access health informa tion online Indication:BMI 24.0-24.9, adult Start:23-Mar-2020 Instruction Type:Patient Education How to access health informa tion online - Detail Indication:BMI 24.0-24.9, adult Start:23-Mar-2020 Instruction Type:Patient Education Patient Instructions Indication:BMI 24.0-24.9, adult Start:23-Mar-2020 Instruction Type:Provider Instructions for Treatment How to access health informa tion online Indication:Diabetes mellitus type II, controlled Start:08-Dec-2019 Instruction Type:Patient Education How to access health informa tion online - Detail Indication:Diabetes mellitus type II, controlled Start:08-Dec-2019 Instruction Type:Patient Education Patient Instructions Indication:Diabetes mellitus type II, controlled Start:08-Dec-2019 Instruction Type:Provider Instructions for Treatment How to access health informa tion online Indication:Diabetes mellitus type II, controlled Start:01-Sep-2019 Instruction Type:Patient Education How to access health informa tion online - Detail Indication:Diabetes mellitus type II, controlled Start:01-Sep-2019 Instruction Type:Patient Education Patient Instructions Indication:Diabetes mellitus type II, controlled Start:01-Sep-2019 Instruction Type:Provider Instructions for Treatment How to access health informa tion online Indication:Diabetes mellitus type II, controlled Start:29-Apr-2019 Instruction Type:Patient Education How to access health informa tion online - Detail Indication:Diabetes mellitus type II, controlled Start:29-Apr-2019 Instruction Type:Patient Education Patient Instructions Indication:Diabetes mellitus type II, controlled Start:29-Apr-2019 Instruction Type:Provider Instructions for Treatment How to access health informa tion online Indication:BMI 22.0-22.9, adult Start:24-Dec-2018 Instruction Type:Patient Education How to access health informa tion online - Detail Indication:BMI 22.0-22.9, adult Start:24-Dec-2018 Instruction Type:Patient Education Patient Instructions Indication:BMI 22.0-22.9, adult Start:24-Dec-2018 Instruction Type:Provider Instructions for Treatment How to access health informa tion online Indication:Smoker Start:14-May-2018 Instruction Type:Patient Education How to access health informa tion online - Detail Indication:Smoker Start:14-May-2018 Instruction Type:Patient Education Patient Instructions Indication:Smoker Start:14-May-2018 Instruction Type:Provider Instructions for Treatment How to access health informa tion online Indication:Smoker Start:16-Apr-2018 Instruction Type:Patient Education How to access health informa tion online - Detail Indication:Smoker Start:16-Apr-2018 Instruction Type:Patient Education Patient Instructions Indication:Smoker Start:16-Apr-2018 Instruction Type:Provider Instructions for Treatment How to access health informa tion online Indication:Nonsmoker Start:17-Nov-2017 Instruction Type:Patient Education How to access health informa tion online - Detail Indication:Nonsmoker Start:17-Nov-2017 Instruction Type:Patient Education Patient Instructions Indication:Nonsmoker Start:17-Nov-2017 Instruction Type:Provider Instructions for Treatment How to access health informa tion online Indication:Nonsmoker Start:03-Nov-2017 Instruction Type:Patient Education How to access health informa tion online - Detail Indication:Nonsmoker Start:03-Nov-2017 Instruction Type:Patient Education Patient Instructions Indication:Nonsmoker Start:03-Nov-2017 Instruction Type:Provider Instructions for Treatment Patient Instructions Indication:Nonsmoker Start:03-Nov-2017 Instruction Type:Provider Instructions for Treatment How to access health informa tion online Indication:BMI 25.0-25.9,adult Start:27-Oct-2017 Instruction Type:Patient Education How to access health informa tion online - Detail Indication:BMI 25.0-25.9,adult Start:27-Oct-2017 Instruction Type:Patient Education Patient Instructions Indication:BMI 25.0-25.9,adult Start:27-Oct-2017 Instruction Type:Provider Instructions for Treatment How to access health informa tion online Indication:BMI 25.0-25.9,adult Start:06-Mar-2017 Instruction Type:Patient Education How to access health informa tion online - Detail Indication:BMI 25.0-25.9,adult Start:06-Mar-2017 Instruction Type:Patient Education Patient Instructions Indication:BMI 25.0-25.9,adult Start:06-Mar-2017 Instruction Type:Provider Instructions for Treatment How to access health informa tion online Indication:Nasal congestion Start:09-Oct-2016 Instruction Type:Patient Education How to access health informa tion online - Detail Indication:Nasal congestion Start:09-Oct-2016 Instruction Type:Patient Education Patient Instructions Indication:Nasal congestion Start:09-Oct-2016 Instruction Type:Provider Instructions for Treatment How to access health informa tion online Indication:Need for prophylactic vaccination and inoculation against influenza Start:26-Mar-2016 Instruction Type:Patient Education How to access health informa tion online - Detail Indication:Need for prophylactic vaccination and inoculation against influenza Start:26-Mar-2016 Instruction Type:Patient Education Patient Instructions Indication:Need for prophylactic vaccination and inoculation against influenza Start:26-Mar-2016 Instruction Type:Provider Instructions for Treatment How to access health informa tion online - Detail Indication:Elevated fasting glucose Start:21-Jun-2015 Instruction Type:Patient Education How to access health informa tion online - Detail Indication:Elevated fasting glucose Start:21-Jun-2015 Instruction Type:Patient Education Patient Instructions Indication:Elevated fasting glucose Start:21-Jun-2015 Instruction Type:Provider Instructions for Treatment How to access health informa tion online Indication:Annual physical exam Start:29-Dec-2014 Instruction Type:Patient Education How to access health informa tion online - Detail Indication:Annual physical exam Start:29-Dec-2014 Instruction Type:Patient Education Patient Instructions Indication:Annual physical exam Start:29-Dec-2014 Instruction Type:Provider Instructions for Treatment Patient Instructions Indication:Vertigo Start:14-Nov-2014 Instruction Type:Provider Instructions for Treatment Patient Instructions Indication:Cough Start:25-Aug-2014 Instruction Type:Provider Instructions for Treatment Patient Instructions Indication:Dysthymic Start:04-Jul-2014 Instruction Type:Provider Instructions for Treatment Patient Instructions Indication:Dysthymic Start:29-Sep-2013 Instruction Type:Provider Instructions for Treatment [facility]; [facility] Work Phone: Instructions* Name Dates Details Patient Instructions Indication:Smoker Start:14-Nov-2022 Instruction Type:Provider Instructions for Treatment How to Access Health Informa tion Online using Patient Portal and [employer]rd [employer] Apps Indication:Smoker Start:14-Nov-2022 Instruction Type:Patient Education Patient Instructions Indication:BMI 25.0-25.9,adult Start:08-Aug-2022 Instruction Type:Provider Instructions for Treatment How to Access Health Informa tion Online using Patient Portal and [employer]rd [employer] Apps Indication:BMI 25.0-25.9,adult Start:08-Aug-2022 Instruction Type:Patient Education Patient Instructions Indication:BMI 25.0-25.9,adult Start:02-May-2022 Instruction Type:Provider Instructions for Treatment How to Access Health Informa tion Online using Patient Portal and [employer]rd [employer] Apps Indication:BMI 25.0-25.9,adult Start:02-May-2022 Instruction Type:Patient Education Patient Instructions Indication:Smoker Start:11-Apr-2022 Instruction Type:Provider Instructions for Treatment How to Access Health Informa tion Online using Patient Portal and [employer]rd [employer] Apps Indication:Smoker Start:11-Apr-2022 Instruction Type:Patient Education Patient Instructions Indication:Smoker Start:25-Jan-2022 Instruction Type:Provider Instructions for Treatment How to Access Health Informa tion Online using Patient Portal and [employer]rd [employer] Apps Indication:Smoker Start:25-Jan-2022 Instruction Type:Patient Education Patient Instructions Indication:Smoker Start:05-Oct-2021 Instruction Type:Provider Instructions for Treatment How to Access Health Informa tion Online using Patient Portal and [employer]rd [employer] Apps Indication:Smoker Start:05-Oct-2021 Instruction Type:Patient Education Patient Instructions Indication:Smoker Start:07-Jun-2021 Instruction Type:Provider Instructions for Treatment How to Access Health Informa tion Online using Patient Portal and [employer]rd [employer] Apps Indication:Smoker Start:07-Jun-2021 Instruction Type:Patient Education Patient Instructions Indication:Smoker Start:01-Jun-2021 Instruction Type:Provider Instructions for Treatment How to Access Health Informa tion Online using Patient Portal and [employer]rd [employer] Apps Indication:Smoker Start:01-Jun-2021 Instruction Type:Patient Education Patient Instructions Indication:BMI 26.0-26.9,adult Start:26-Jan-2021 Instruction Type:Provider Instructions for Treatment How to Access Health Informa tion Online using Patient Portal and [employer]rd [employer] Apps Indication:BMI 26.0-26.9,adult Start:26-Jan-2021 Instruction Type:Patient Education How to Access Health Informa tion Online using Patient Portal and [employer]rd [employer] Apps Indication:Smoker Start:22-Sep-2020 Instruction Type:Patient Education Patient Instructions Indication:Smoker Start:22-Sep-2020 Instruction Type:Provider Instructions for Treatment How to Access Health Informa tion Online using Patient Portal and [employer]rd [employer] Apps Indication:Nonsmoker Start:21-Jun-2020 Instruction Type:Patient Education Patient Instructions Indication:Nonsmoker Start:21-Jun-2020 Instruction Type:Provider Instructions for Treatment How to Access Health Informa tion Online using Patient Portal and [employer]rd [employer] Apps Indication:Nonsmoker Start:15-Jun-2020 Instruction Type:Patient Education Patient Instructions Indication:Nonsmoker Start:15-Jun-2020 Instruction Type:Provider Instructions for Treatment How to access health informa tion online Indication:BMI 24.0-24.9, adult Start:23-Mar-2020 Instruction Type:Patient Education How to access health informa tion online - Detail Indication:BMI 24.0-24.9, adult Start:23-Mar-2020 Instruction Type:Patient Education Patient Instructions Indication:BMI 24.0-24.9, adult Start:23-Mar-2020 Instruction Type:Provider Instructions for Treatment How to access health informa tion online Indication:Diabetes mellitus type II, controlled Start:08-Dec-2019 Instruction Type:Patient Education How to access health informa tion online - Detail Indication:Diabetes mellitus type II, controlled Start:08-Dec-2019 Instruction Type:Patient Education Patient Instructions Indication:Diabetes mellitus type II, controlled Start:08-Dec-2019 Instruction Type:Provider Instructions for Treatment How to access health informa tion online Indication:Diabetes mellitus type II, controlled Start:01-Sep-2019 Instruction Type:Patient Education How to access health informa tion online - Detail Indication:Diabetes mellitus type II, controlled Start:01-Sep-2019 Instruction Type:Patient Education Patient Instructions Indication:Diabetes mellitus type II, controlled Start:01-Sep-2019 Instruction Type:Provider Instructions for Treatment How to access health informa tion online Indication:Diabetes mellitus type II, controlled Start:29-Apr-2019 Instruction Type:Patient Education How to access health informa tion online - Detail Indication:Diabetes mellitus type II, controlled Start:29-Apr-2019 Instruction Type:Patient Education Patient Instructions Indication:Diabetes mellitus type II, controlled Start:29-Apr-2019 Instruction Type:Provider Instructions for Treatment How to access health informa tion online Indication:BMI 22.0-22.9, adult Start:24-Dec-2018 Instruction Type:Patient Education How to access health informa tion online - Detail Indication:BMI 22.0-22.9, adult Start:24-Dec-2018 Instruction Type:Patient Education Patient Instructions Indication:BMI 22.0-22.9, adult Start:24-Dec-2018 Instruction Type:Provider Instructions for Treatment How to access health informa tion online Indication:Smoker Start:14-May-2018 Instruction Type:Patient Education How to access health informa tion online - Detail Indication:Smoker Start:14-May-2018 Instruction Type:Patient Education Patient Instructions Indication:Smoker Start:14-May-2018 Instruction Type:Provider Instructions for Treatment How to access health informa tion online Indication:Smoker Start:16-Apr-2018 Instruction Type:Patient Education How to access health informa tion online - Detail Indication:Smoker Start:16-Apr-2018 Instruction Type:Patient Education Patient Instructions Indication:Smoker Start:16-Apr-2018 Instruction Type:Provider Instructions for Treatment How to access health informa tion online Indication:Nonsmoker Start:17-Nov-2017 Instruction Type:Patient Education How to access health informa tion online - Detail Indication:Nonsmoker Start:17-Nov-2017 Instruction Type:Patient Education Patient Instructions Indication:Nonsmoker Start:17-Nov-2017 Instruction Type:Provider Instructions for Treatment How to access health informa tion online Indication:Nonsmoker Start:03-Nov-2017 Instruction Type:Patient Education How to access health informa tion online - Detail Indication:Nonsmoker Start:03-Nov-2017 Instruction Type:Patient Education Patient Instructions Indication:Nonsmoker Start:03-Nov-2017 Instruction Type:Provider Instructions for Treatment Patient Instructions Indication:Nonsmoker Start:03-Nov-2017 Instruction Type:Provider Instructions for Treatment How to access health informa tion online Indication:BMI 25.0-25.9,adult Start:27-Oct-2017 Instruction Type:Patient Education How to access health informa tion online - Detail Indication:BMI 25.0-25.9,adult Start:27-Oct-2017 Instruction Type:Patient Education Patient Instructions Indication:BMI 25.0-25.9,adult Start:27-Oct-2017 Instruction Type:Provider Instructions for Treatment How to access health informa tion online Indication:BMI 25.0-25.9,adult Start:06-Mar-2017 Instruction Type:Patient Education How to access health informa tion online - Detail Indication:BMI 25.0-25.9,adult Start:06-Mar-2017 Instruction Type:Patient Education Patient Instructions Indication:BMI 25.0-25.9,adult Start:06-Mar-2017 Instruction Type:Provider Instructions for Treatment How to access health informa tion online Indication:Nasal congestion Start:09-Oct-2016 Instruction Type:Patient Education How to access health informa tion online - Detail Indication:Nasal congestion Start:09-Oct-2016 Instruction Type:Patient Education Patient Instructions Indication:Nasal congestion Start:09-Oct-2016 Instruction Type:Provider Instructions for Treatment How to access health informa tion online Indication:Need for prophylactic vaccination and inoculation against influenza Start:26-Mar-2016 Instruction Type:Patient Education How to access health informa tion online - Detail Indication:Need for prophylactic vaccination and inoculation against influenza Start:26-Mar-2016 Instruction Type:Patient Education Patient Instructions Indication:Need for prophylactic vaccination and inoculation against influenza Start:26-Mar-2016 Instruction Type:Provider Instructions for Treatment How to access health informa tion online - Detail Indication:Elevated fasting glucose Start:21-Jun-2015 Instruction Type:Patient Education How to access health informa tion online - Detail Indication:Elevated fasting glucose Start:21-Jun-2015 Instruction Type:Patient Education Patient Instructions Indication:Elevated fasting glucose Start:21-Jun-2015 Instruction Type:Provider Instructions for Treatment How to access health informa tion online Indication:Annual physical exam Start:29-Dec-2014 Instruction Type:Patient Education How to access health informa tion online - Detail Indication:Annual physical exam Start:29-Dec-2014 Instruction Type:Patient Education Patient Instructions Indication:Annual physical exam Start:29-Dec-2014 Instruction Type:Provider Instructions for Treatment Patient Instructions Indication:Vertigo Start:14-Nov-2014 Instruction Type:Provider Instructions for Treatment Patient Instructions Indication:Cough Start:25-Aug-2014 Instruction Type:Provider Instructions for Treatment Patient Instructions Indication:Dysthymic Start:04-Jul-2014 Instruction Type:Provider Instructions for Treatment Patient Instructions Indication:Dysthymic Start:29-Sep-2013 Instruction Type:Provider Instructions for Treatment [facility]; [facility] Work Phone: Instructions* Name Dates Details Patient Instructions Indication:Smoker Start:14-Nov-2022 Instruction Type:Provider Instructions for Treatment How to Access Health Informa tion Online using Patient Portal and [employer]rd [employer] Apps Indication:Smoker Start:14-Nov-2022 Instruction Type:Patient Education Patient Instructions Indication:BMI 25.0-25.9,adult Start:08-Aug-2022 Instruction Type:Provider Instructions for Treatment How to Access Health Informa tion Online using Patient Portal and [employer]rd [employer] Apps Indication:BMI 25.0-25.9,adult Start:08-Aug-2022 Instruction Type:Patient Education Patient Instructions Indication:BMI 25.0-25.9,adult Start:02-May-2022 Instruction Type:Provider Instructions for Treatment How to Access Health Informa tion Online using Patient Portal and [employer]rd [employer] Apps Indication:BMI 25.0-25.9,adult Start:02-May-2022 Instruction Type:Patient Education Patient Instructions Indication:Smoker Start:11-Apr-2022 Instruction Type:Provider Instructions for Treatment How to Access Health Informa tion Online using Patient Portal and [employer]rd [employer] Apps Indication:Smoker Start:11-Apr-2022 Instruction Type:Patient Education Patient Instructions Indication:Smoker Start:25-Jan-2022 Instruction Type:Provider Instructions for Treatment How to Access Health Informa tion Online using Patient Portal and [employer]rd [employer] Apps Indication:Smoker Start:25-Jan-2022 Instruction Type:Patient Education Patient Instructions Indication:Smoker Start:05-Oct-2021 Instruction Type:Provider Instructions for Treatment How to Access Health Informa tion Online using Patient Portal and [employer]rd [employer] Apps Indication:Smoker Start:05-Oct-2021 Instruction Type:Patient Education Patient Instructions Indication:Smoker Start:07-Jun-2021 Instruction Type:Provider Instructions for Treatment How to Access Health Informa tion Online using Patient Portal and [employer]rd [employer] Apps Indication:Smoker Start:07-Jun-2021 Instruction Type:Patient Education Patient Instructions Indication:Smoker Start:01-Jun-2021 Instruction Type:Provider Instructions for Treatment How to Access Health Informa tion Online using Patient Portal and [employer]rd [employer] Apps Indication:Smoker Start:01-Jun-2021 Instruction Type:Patient Education Patient Instructions Indication:BMI 26.0-26.9,adult Start:26-Jan-2021 Instruction Type:Provider Instructions for Treatment How to Access Health Informa tion Online using Patient Portal and [employer]rd [employer] Apps Indication:BMI 26.0-26.9,adult Start:26-Jan-2021 Instruction Type:Patient Education How to Access Health Informa tion Online using Patient Portal and [employer]rd [employer] Apps Indication:Smoker Start:22-Sep-2020 Instruction Type:Patient Education Patient Instructions Indication:Smoker Start:22-Sep-2020 Instruction Type:Provider Instructions for Treatment How to Access Health Informa tion Online using Patient Portal and [employer]rd [employer] Apps Indication:Nonsmoker Start:21-Jun-2020 Instruction Type:Patient Education Patient Instructions Indication:Nonsmoker Start:21-Jun-2020 Instruction Type:Provider Instructions for Treatment How to Access Health Informa tion Online using Patient Portal and [employer]rd [employer] Apps Indication:Nonsmoker Start:15-Jun-2020 Instruction Type:Patient Education Patient Instructions Indication:Nonsmoker Start:15-Jun-2020 Instruction Type:Provider Instructions for Treatment How to access health informa tion online Indication:BMI 24.0-24.9, adult Start:23-Mar-2020 Instruction Type:Patient Education How to access health informa tion online - Detail Indication:BMI 24.0-24.9, adult Start:23-Mar-2020 Instruction Type:Patient Education Patient Instructions Indication:BMI 24.0-24.9, adult Start:23-Mar-2020 Instruction Type:Provider Instructions for Treatment How to access health informa tion online Indication:Diabetes mellitus type II, controlled Start:08-Dec-2019 Instruction Type:Patient Education How to access health informa tion online - Detail Indication:Diabetes mellitus type II, controlled Start:08-Dec-2019 Instruction Type:Patient Education Patient Instructions Indication:Diabetes mellitus type II, controlled Start:08-Dec-2019 Instruction Type:Provider Instructions for Treatment How to access health informa tion online Indication:Diabetes mellitus type II, controlled Start:01-Sep-2019 Instruction Type:Patient Education How to access health informa tion online - Detail Indication:Diabetes mellitus type II, controlled Start:01-Sep-2019 Instruction Type:Patient Education Patient Instructions Indication:Diabetes mellitus type II, controlled Start:01-Sep-2019 Instruction Type:Provider Instructions for Treatment How to access health informa tion online Indication:Diabetes mellitus type II, controlled Start:29-Apr-2019 Instruction Type:Patient Education How to access health informa tion online - Detail Indication:Diabetes mellitus type II, controlled Start:29-Apr-2019 Instruction Type:Patient Education Patient Instructions Indication:Diabetes mellitus type II, controlled Start:29-Apr-2019 Instruction Type:Provider Instructions for Treatment How to access health informa tion online Indication:BMI 22.0-22.9, adult Start:24-Dec-2018 Instruction Type:Patient Education How to access health informa tion online - Detail Indication:BMI 22.0-22.9, adult Start:24-Dec-2018 Instruction Type:Patient Education Patient Instructions Indication:BMI 22.0-22.9, adult Start:24-Dec-2018 Instruction Type:Provider Instructions for Treatment How to access health informa tion online Indication:Smoker Start:14-May-2018 Instruction Type:Patient Education How to access health informa tion online - Detail Indication:Smoker Start:14-May-2018 Instruction Type:Patient Education Patient Instructions Indication:Smoker Start:14-May-2018 Instruction Type:Provider Instructions for Treatment How to access health informa tion online Indication:Smoker Start:16-Apr-2018 Instruction Type:Patient Education How to access health informa tion online - Detail Indication:Smoker Start:16-Apr-2018 Instruction Type:Patient Education Patient Instructions Indication:Smoker Start:16-Apr-2018 Instruction Type:Provider Instructions for Treatment How to access health informa tion online Indication:Nonsmoker Start:17-Nov-2017 Instruction Type:Patient Education How to access health informa tion online - Detail Indication:Nonsmoker Start:17-Nov-2017 Instruction Type:Patient Education Patient Instructions Indication:Nonsmoker Start:17-Nov-2017 Instruction Type:Provider Instructions for Treatment How to access health informa tion online Indication:Nonsmoker Start:03-Nov-2017 Instruction Type:Patient Education How to access health informa tion online - Detail Indication:Nonsmoker Start:03-Nov-2017 Instruction Type:Patient Education Patient Instructions Indication:Nonsmoker Start:03-Nov-2017 Instruction Type:Provider Instructions for Treatment Patient Instructions Indication:Nonsmoker Start:03-Nov-2017 Instruction Type:Provider Instructions for Treatment How to access health informa tion online Indication:BMI 25.0-25.9,adult Start:27-Oct-2017 Instruction Type:Patient Education How to access health informa tion online - Detail Indication:BMI 25.0-25.9,adult Start:27-Oct-2017 Instruction Type:Patient Education Patient Instructions Indication:BMI 25.0-25.9,adult Start:27-Oct-2017 Instruction Type:Provider Instructions for Treatment How to access health informa tion online Indication:BMI 25.0-25.9,adult Start:06-Mar-2017 Instruction Type:Patient Education How to access health informa tion online - Detail Indication:BMI 25.0-25.9,adult Start:06-Mar-2017 Instruction Type:Patient Education Patient Instructions Indication:BMI 25.0-25.9,adult Start:06-Mar-2017 Instruction Type:Provider Instructions for Treatment How to access health informa tion online Indication:Nasal congestion Start:09-Oct-2016 Instruction Type:Patient Education How to access health informa tion online - Detail Indication:Nasal congestion Start:09-Oct-2016 Instruction Type:Patient Education Patient Instructions Indication:Nasal congestion Start:09-Oct-2016 Instruction Type:Provider Instructions for Treatment How to access health informa tion online Indication:Need for prophylactic vaccination and inoculation against influenza Start:26-Mar-2016 Instruction Type:Patient Education How to access health informa tion online - Detail Indication:Need for prophylactic vaccination and inoculation against influenza Start:26-Mar-2016 Instruction Type:Patient Education Patient Instructions Indication:Need for prophylactic vaccination and inoculation against influenza Start:26-Mar-2016 Instruction Type:Provider Instructions for Treatment How to access health informa tion online - Detail Indication:Elevated fasting glucose Start:21-Jun-2015 Instruction Type:Patient Education How to access health informa tion online - Detail Indication:Elevated fasting glucose Start:21-Jun-2015 Instruction Type:Patient Education Patient Instructions Indication:Elevated fasting glucose Start:21-Jun-2015 Instruction Type:Provider Instructions for Treatment How to access health informa tion online Indication:Annual physical exam Start:29-Dec-2014 Instruction Type:Patient Education How to access health informa tion online - Detail Indication:Annual physical exam Start:29-Dec-2014 Instruction Type:Patient Education Patient Instructions Indication:Annual physical exam Start:29-Dec-2014 Instruction Type:Provider Instructions for Treatment Patient Instructions Indication:Vertigo Start:14-Nov-2014 Instruction Type:Provider Instructions for Treatment Patient Instructions Indication:Cough Start:25-Aug-2014 Instruction Type:Provider Instructions for Treatment Patient Instructions Indication:Dysthymic Start:04-Jul-2014 Instruction Type:Provider Instructions for Treatment Patient Instructions Indication:Dysthymic Start:29-Sep-2013 Instruction Type:Provider Instructions for Treatment [facility] Work Phone: progress note No data available for this section [facility] Reason for referral (narrative)No reason for referral information available[facility]: Reason for visit Narrative* Imaging (Emergency) - Closed Specialty Diagnoses / Procedures Referred By Latisha guardado Referred To Contact Radiology Diagnoses Renal mass, right Procedures MR abdomen w and wo contrast Rodríguez Vick MD [address] [place] [address] Phone: tel: fax: Referral ID Status Reason Start Date Expiration Date Visits Re quested Visits Authorized [id number] Closed 04/29/2024 04/29/2025 1 1 Astonish Results for visit Narrative* Auth/Cert (Routine) Specialty Diagnoses / Procedures Referred By Latisha guardado Referred To Contact Diagnoses Cyst of kidney, acquired Procedures [place] LAPAROSCOPY SURG PARTIAL NEPHRECTOMY ROBOTIC RIGHT PARTIAL NEPHRECTOMY, POSSIBLE RADICAL NEPHRECTOMY Rodríguez Vick MD [address] [place] [address] Phone: tel: fax: Referral ID Status Reason Start Date Expiration Date Visits Re quested Visits Authorized [id number] 05/19/2024 1 1 [employer] timeplazzaReason for visit Narrative* Imaging (Routine) - Closed Specialty Diagnoses / Procedures Referred By Latisha guardado Referred To Contact Radiology Diagnoses Malignant neoplasm of right kidney (HCC) Procedures CT abdomen w IV contrast Rodríguez Vick MD [address] [place] [address] Phone: tel: fax: Referral ID Status Reason Start Date Expiration Date Visits Re quested Visits Authorized [id number] Closed 07/29/2024 07/29/2025 1 1 [facility] Summary Purpose Family History No Family History Records FoundUnknown Family Member Name Dates Details Father Comments:unsure Status:Active Maternal Grandfather Comments:hypertension Status:Active Maternal Grandmother Comments:type 2 diabetes Status:Active Mother Comments:anxiety/depression, hypothyroid Status:Active Unknown Family Member Name Dates Details Father Comments:unsure Status:Active Maternal Grandfather Comments:hypertension Status:Active Maternal Grandmother Comments:type 2 diabetes Status:Active Mother Comments:anxiety/depression, hypothyroid Status:Active Unknown Family Member Name Dates Details Father Comments:unsure Status:Active Maternal Grandfather Comments:hypertension Status:Active Maternal Grandmother Comments:type 2 diabetes Status:Active Mother Comments:anxiety/depression, hypothyroid Status:Active Unknown Family Member Name Dates Details Father Comments:unsure Status:Active Maternal Grandfather Comments:hypertension Status:Active Maternal Grandmother Comments:type 2 diabetes Status:Active Mother Comments:anxiety/depression, hypothyroid Status:Active Unknown Family Member Name Dates Details Father Comments:unsure Status:Active Maternal Grandfather Comments:hypertension Status:Active Maternal Grandmother Comments:type 2 diabetes Status:Active Mother Comments:anxiety/depression, hypothyroid Status:Active Unknown Family Member Name Dates Details Father Comments:unsure Status:Active Maternal Grandfather Comments:hypertension Status:Active Maternal Grandmother Comments:type 2 diabetes Status:Active Mother Comments:anxiety/depression, hypothyroid Status:Active Unknown Family Member Name Dates Details Father Comments:unsure Status:Active Maternal Grandfather Comments:hypertension Status:Active Maternal Grandmother Comments:type 2 diabetes Status:Active Mother Comments:anxiety/depression, hypothyroid Status:Active Unknown Family Member Name Dates Details Father Comments:unsure Status:Active Maternal Grandfather Comments:hypertension Status:Active Maternal Grandmother Comments:type 2 diabetes Status:Active Mother Comments:anxiety/depression, hypothyroid Status:Active Unknown Family Member Name Dates Details Father Comments:unsure Status:Active Maternal Grandfather Comments:hypertension Status:Active Maternal Grandmother Comments:type 2 diabetes Status:Active Mother Comments:anxiety/depression, hypothyroid Status:Active Unknown Family Member Name Dates Details Father Comments:unsure Status:Active Maternal Grandfather Comments:hypertension Status:Active Maternal Grandmother Comments:type 2 diabetes Status:Active Mother Comments:anxiety/depression, hypothyroid Status:Active Unknown Family Member Name Dates Details Father Comments:unsure Status:Active Maternal Grandfather Comments:hypertension Status:Active Maternal Grandmother Comments:type 2 diabetes Status:Active Mother Comments:anxiety/depression, hypothyroid Status:Active Unknown Family Member Name Dates Details Father Comments:unsure Status:Active Maternal Grandfather Comments:hypertension Status:Active Maternal Grandmother Comments:type 2 diabetes Status:Active Mother Comments:anxiety/depression, hypothyroid Status:Active Unknown Family Member Name Dates Details Father Comments:unsure Status:Active Maternal Grandfather Comments:hypertension Status:Active Maternal Grandmother Comments:type 2 diabetes Status:Active Mother Comments:anxiety/depression, hypothyroid Status:Active Unknown Family Member Name Dates Details Father Comments:unsure Status:Active Maternal Grandfather Comments:hypertension Status:Active Maternal Grandmother Comments:type 2 diabetes Status:Active Mother Comments:anxiety/depression, hypothyroid Status:Active Unknown Family Member Name Dates Details Father Comments:unsure Status:Active Maternal Grandfather Comments:hypertension Status:Active Maternal Grandmother Comments:type 2 diabetes Status:Active Mother Comments:anxiety/depression, hypothyroid Status:Active Unknown Family Member Name Dates Details Father Comments:unsure Status:Active Maternal Grandfather Comments:hypertension Status:Active Maternal Grandmother Comments:type 2 diabetes Status:Active Mother Comments:anxiety/depression, hypothyroid Status:Active Unknown Family Member Name Dates Details Father Comments:unsure Status:Active Maternal Grandfather Comments:hypertension Status:Active Maternal Grandmother Comments:type 2 diabetes Status:Active Mother Comments:anxiety/depression, hypothyroid Status:Active Unknown Family Member Name Dates Details Father Comments:unsure Status:Active Maternal Grandfather Comments:hypertension Status:Active Maternal Grandmother Comments:type 2 diabetes Status:Active Mother Comments:anxiety/depression, hypothyroid Status:Active Unknown Family Member Name Dates Details Father Comments:unsure Status:Active Maternal Grandfather Comments:hypertension Status:Active Maternal Grandmother Comments:type 2 diabetes Status:Active Mother Comments:anxiety/depression, hypothyroid Status:Active Unknown Family Member Name Dates Details Father Comments:unsure Status:Active Maternal Grandfather Comments:hypertension Status:Active Maternal Grandmother Comments:type 2 diabetes Status:Active Mother Comments:anxiety/depression, hypothyroid Status:Active Unknown Family Member Name Dates Details Father Comments:unsure Status:Active Maternal Grandfather Comments:hypertension Status:Active Maternal Grandmother Comments:type 2 diabetes Status:Active Mother Comments:anxiety/depression, hypothyroid Status:Active Unknown Family Member Name Dates Details Father Comments:unsure Status:Active Maternal Grandfather Comments:hypertension Status:Active Maternal Grandmother Comments:type 2 diabetes Status:Active Mother Comments:anxiety/depression, hypothyroid Status:Active Unknown Family Member Name Dates Details Father Comments:unsure Status:Active Maternal Grandfather Comments:hypertension Status:Active Maternal Grandmother Comments:type 2 diabetes Status:Active Mother Comments:anxiety/depression, hypothyroid Status:Active Unknown Family Member Name Dates Details Father Comments:unsure Status:Active Maternal Grandfather Comments:hypertension Status:Active Maternal Grandmother Comments:type 2 diabetes Status:Active Mother Comments:anxiety/depression, hypothyroid Status:Active Unknown Family Member Name Dates Details Father Comments:unsure Status:Active Maternal Grandfather Comments:hypertension Status:Active Maternal Grandmother Comments:type 2 diabetes Status:Active Mother Comments:anxiety/depression, hypothyroid Status:Active Unknown Family Member Name Dates Details Father Comments:unsure Status:Active Maternal Grandfather Comments:hypertension Status:Active Maternal Grandmother Comments:type 2 diabetes Status:Active Mother Comments:anxiety/depression, hypothyroid Status:Active Unknown Family Member Name Dates Details Father Comments:unsure Status:Active Maternal Grandfather Comments:hypertension Status:Active Maternal Grandmother Comments:type 2 diabetes Status:Active Mother Comments:anxiety/depression, hypothyroid Status:Active Unknown Family Member Name Dates Details Father Comments:unsure Status:Active Maternal Grandfather Comments:hypertension Status:Active Maternal Grandmother Comments:type 2 diabetes Status:Active Mother Comments:anxiety/depression, hypothyroid Status:Active Unknown Family Member Name Dates Details Father Comments:unsure Status:Active Maternal Grandfather Comments:hypertension Status:Active Maternal Grandmother Comments:type 2 diabetes Status:Active Mother Comments:anxiety/depression, hypothyroid Status:Active Relationship Condition Age at Onset Recorded Date/T tal mother Anxiety and depression Unknown grandfather Cerebrovascular accident (CVA) Unknown Hypertension Unknown grandmother Diabetes mellitus Unknown Unknown Family Member Name Dates Details Father Comments:unsure Status:Active Maternal Grandfather Comments:hypertension Status:Active Maternal Grandmother Comments:type 2 diabetes Status:Active Mother Comments:anxiety/depression, hypothyroid Status:Active Unknown Family Member Name Dates Details Father Comments:unsure Status:Active Maternal Grandfather Comments:hypertension Status:Active Maternal Grandmother Comments:type 2 diabetes Status:Active Mother Comments:anxiety/depression, hypothyroid Status:Active Unknown Family Member Name Dates Details Father Comments:unsure Status:Active Maternal Grandfather Comments:hypertension Status:Active Maternal Grandmother Comments:type 2 diabetes Status:Active Mother Comments:anxiety/depression, hypothyroid Status:Active Unknown Family Member Name Dates Details Father Comments:unsure Status:Active Maternal Grandfather Comments:hypertension Status:Active Maternal Grandmother Comments:type 2 diabetes Status:Active Mother Comments:anxiety/depression, hypothyroid Status:Active Unknown Family Member Name Dates Details Father Comments:unsure Status:Active Maternal Grandfather Comments:hypertension Status:Active Maternal Grandmother Comments:type 2 diabetes Status:Active Mother Comments:anxiety/depression, hypothyroid Status:Active Unknown Family Member Name Dates Details Father Comments:unsure Status:Active Maternal Grandfather Comments:hypertension Status:Active Maternal Grandmother Comments:type 2 diabetes Status:Active Mother Comments:anxiety/depression, hypothyroid Status:Active Unknown Family Member Name Dates Details Father Comments:unsure Status:Active Maternal Grandfather Comments:hypertension Status:Active Maternal Grandmother Comments:type 2 diabetes Status:Active Mother Comments:anxiety/depression, hypothyroid Status:Active Unknown Family Member Name Dates Details Father Comments:unsure Status:Active Maternal Grandfather Comments:hypertension Status:Active Maternal Grandmother Comments:type 2 diabetes Status:Active Mother Comments:anxiety/depression, hypothyroid Status:Active Unknown Family Member Name Dates Details Father Comments:unsure Status:Active Maternal Grandfather Comments:hypertension Status:Active Maternal Grandmother Comments:type 2 diabetes Status:Active Mother Comments:anxiety/depression, hypothyroid Status:Active Unknown Family Member Name Dates Details Father Comments:unsure Status:Active Maternal Grandfather Comments:hypertension Status:Active Maternal Grandmother Comments:type 2 diabetes Status:Active Mother Comments:anxiety/depression, hypothyroid Status:Active Advance Directives No Advanced Directives Records FoundDocuments on File Type Date Recorded 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 Expiration date unspecified Effective:08-Aug-2022 Name Dates Details Immunization Registry [place] - Effective on 08/08/2022. Expiration date unspecified Effective:08-Aug-2022 Date Activated Date Inactivated Comments 07/14/2024 3:09 PM 07/15/2024 4:50 PM Date Activated Date Inactivated Comments 07/14/2024 5:41 AM 07/14/2024 3:09 PM Date Activated Date Inactivated Comments 07/14/2024 3:09 PM 07/15/2024 4:50 PM Date Activated Date Inactivated Comments 07/14/2024 5:41 AM 07/14/2024 3:09 PM Advance Directive Response Recorded Date/ Time Do you have a Healthcare Power of Loading Inspector? No November 12, 2024 8:49am Instructions Name Dates Details Smoker : How to access healt h information online Indication:Smoker Smoker : How to access healt h information online - Detail Indication:Smoker Smoker : Patient Instruction s Indication:Smoker Nonsmoker : How to access he alth information online Indication:Nonsmoker Nonsmoker : How to access he alth information online - Detail Indication:Nonsmoker Nonsmoker : Patient Instruct ions Indication:Nonsmoker BMI 25.0-25.9,adult : How to access health information online Indication:BMI 25.0-25.9,adult BMI 25.0-25.9,adult : How to access health information online - Detail Indication:BMI 25.0-25.9,adult BMI 25.0-25.9,adult : Patien t Instructions Indication:BMI 25.0-25.9,adult Nasal congestion : How to ac cess health information online Indication:Nasal congestion Nasal congestion : How to ac cess health information online - Detail Indication:Nasal congestion Nasal congestion : Patient I nstructions Indication:Nasal congestion Need for prophylactic vaccin ation and inoculation against influenza : How to access health information online Indication:Need for prophylactic vaccination and inoculation against influenza Need for prophylactic vaccin ation and inoculation against influenza : How to access health information online - Detail Indication:Need for prophylactic vaccination and inoculation against influenza Need for prophylactic vaccin ation and inoculation against influenza : Patient Instructions Indication:Need for prophylactic vaccination and inoculation against influenza Elevated fasting glucose : H ow to access health information online - Detail Indication:Elevated fasting glucose Elevated fasting glucose : P atient Instructions Indication:Elevated fasting glucose Annual physical exam : How t o access health information online Indication:Annual physical exam Annual physical exam : How t o access health information online - Detail Indication:Annual physical exam Annual physical exam : Patie nt Instructions Indication:Annual physical exam Vertigo : Patient Instructio ns Indication:Vertigo Cough : Patient Instructions Indication:Cough Dysthymic : Patient Instruct ions Indication:Dysthymic Name Dates Details Smoker : How to access healt h information online Indication:Smoker Smoker : How to access healt h information online - Detail Indication:Smoker Smoker : Patient Instruction s Indication:Smoker Nonsmoker : How to access he alth information online Indication:Nonsmoker Nonsmoker : How to access he alth information online - Detail Indication:Nonsmoker Nonsmoker : Patient Instruct ions Indication:Nonsmoker BMI 25.0-25.9,adult : How to access health information online Indication:BMI 25.0-25.9,adult BMI 25.0-25.9,adult : How to access health information online - Detail Indication:BMI 25.0-25.9,adult BMI 25.0-25.9,adult : Patien t Instructions Indication:BMI 25.0-25.9,adult Nasal congestion : How to ac cess health information online Indication:Nasal congestion Nasal congestion : How to ac cess health information online - Detail Indication:Nasal congestion Nasal congestion : Patient I nstructions Indication:Nasal congestion Need for prophylactic vaccin ation and inoculation against influenza : How to access health information online Indication:Need for prophylactic vaccination and inoculation against influenza Need for prophylactic vaccin ation and inoculation against influenza : How to access health information online - Detail Indication:Need for prophylactic vaccination and inoculation against influenza Need for prophylactic vaccin ation and inoculation against influenza : Patient Instructions Indication:Need for prophylactic vaccination and inoculation against influenza Elevated fasting glucose : H ow to access health information online - Detail Indication:Elevated fasting glucose Elevated fasting glucose : P atient Instructions Indication:Elevated fasting glucose Annual physical exam : How t o access health information online Indication:Annual physical exam Annual physical exam : How t o access health information online - Detail Indication:Annual physical exam Annual physical exam : Patie nt Instructions Indication:Annual physical exam Vertigo : Patient Instructio ns Indication:Vertigo Cough : Patient Instructions Indication:Cough Dysthymic : Patient Instruct ions Indication:Dysthymic Name Dates Details How to access health informa tion online Indication:Smoker Start:14-May-2018 Instruction Type:Patient Education How to access health informa tion online - Detail Indication:Smoker Start:14-May-2018 Instruction Type:Patient Education Patient Instructions Indication:Smoker Start:14-May-2018 Instruction Type:Provider Instructions for Treatment How to access health informa tion online Indication:Smoker Start:16-Apr-2018 Instruction Type:Patient Education How to access health informa tion online - Detail Indication:Smoker Start:16-Apr-2018 Instruction Type:Patient Education Patient Instructions Indication:Smoker Start:16-Apr-2018 Instruction Type:Provider Instructions for Treatment How to access health informa tion online Indication:Nonsmoker Start:17-Nov-2017 Instruction Type:Patient Education How to access health informa tion online - Detail Indication:Nonsmoker Start:17-Nov-2017 Instruction Type:Patient Education Patient Instructions Indication:Nonsmoker Start:17-Nov-2017 Instruction Type:Provider Instructions for Treatment How to access health informa tion online Indication:Nonsmoker Start:03-Nov-2017 Instruction Type:Patient Education How to access health informa tion online - Detail Indication:Nonsmoker Start:03-Nov-2017 Instruction Type:Patient Education Patient Instructions Indication:Nonsmoker Start:03-Nov-2017 Instruction Type:Provider Instructions for Treatment How to access health informa tion online Indication:BMI 25.0-25.9,adult Start:27-Oct-2017 Instruction Type:Patient Education How to access health informa tion online - Detail Indication:BMI 25.0-25.9,adult Start:27-Oct-2017 Instruction Type:Patient Education Patient Instructions Indication:BMI 25.0-25.9,adult Start:27-Oct-2017 Instruction Type:Provider Instructions for Treatment How to access health informa tion online Indication:BMI 25.0-25.9,adult Start:06-Mar-2017 Instruction Type:Patient Education How to access health informa tion online - Detail Indication:BMI 25.0-25.9,adult Start:06-Mar-2017 Instruction Type:Patient Education Patient Instructions Indication:BMI 25.0-25.9,adult Start:06-Mar-2017 Instruction Type:Provider Instructions for Treatment How to access health informa tion online Indication:Nasal congestion Start:09-Oct-2016 Instruction Type:Patient Education How to access health informa tion online - Detail Indication:Nasal congestion Start:09-Oct-2016 Instruction Type:Patient Education Patient Instructions Indication:Nasal congestion Start:09-Oct-2016 Instruction Type:Provider Instructions for Treatment How to access health informa tion online Indication:Need for prophylactic vaccination and inoculation against influenza Start:26-Mar-2016 Instruction Type:Patient Education How to access health informa tion online - Detail Indication:Need for prophylactic vaccination and inoculation against influenza Start:26-Mar-2016 Instruction Type:Patient Education Patient Instructions Indication:Need for prophylactic vaccination and inoculation against influenza Start:26-Mar-2016 Instruction Type:Provider Instructions for Treatment How to access health informa tion online - Detail Indication:Elevated fasting glucose Start:21-Jun-2015 Instruction Type:Patient Education Patient Instructions Indication:Elevated fasting glucose Start:21-Jun-2015 Instruction Type:Provider Instructions for Treatment How to access health informa tion online Indication:Annual physical exam Start:29-Dec-2014 Instruction Type:Patient Education How to access health informa tion online - Detail Indication:Annual physical exam Start:29-Dec-2014 Instruction Type:Patient Education Patient Instructions Indication:Annual physical exam Start:29-Dec-2014 Instruction Type:Provider Instructions for Treatment Patient Instructions Indication:Vertigo Start:14-Nov-2014 Instruction Type:Provider Instructions for Treatment Patient Instructions Indication:Cough Start:25-Aug-2014 Instruction Type:Provider Instructions for Treatment Patient Instructions Indication:Dysthymic Start:04-Jul-2014 Instruction Type:Provider Instructions for Treatment Patient Instructions Indication:Dysthymic Start:29-Sep-2013 Instruction Type:Provider Instructions for Treatment Name Dates Details How to access health informa tion online Indication:BMI 22.0-22.9, adult Start:24-Dec-2018 Instruction Type:Patient Education How to access health informa tion online - Detail Indication:BMI 22.0-22.9, adult Start:24-Dec-2018 Instruction Type:Patient Education Patient Instructions Indication:BMI 22.0-22.9, adult Start:24-Dec-2018 Instruction Type:Provider Instructions for Treatment How to access health informa tion online Indication:Smoker Start:14-May-2018 Instruction Type:Patient Education How to access health informa tion online - Detail Indication:Smoker Start:14-May-2018 Instruction Type:Patient Education Patient Instructions Indication:Smoker Start:14-May-2018 Instruction Type:Provider Instructions for Treatment How to access health informa tion online Indication:Smoker Start:16-Apr-2018 Instruction Type:Patient Education How to access health informa tion online - Detail Indication:Smoker Start:16-Apr-2018 Instruction Type:Patient Education Patient Instructions Indication:Smoker Start:16-Apr-2018 Instruction Type:Provider Instructions for Treatment How to access health informa tion online Indication:Nonsmoker Start:17-Nov-2017 Instruction Type:Patient Education How to access health informa tion online - Detail Indication:Nonsmoker Start:17-Nov-2017 Instruction Type:Patient Education Patient Instructions Indication:Nonsmoker Start:17-Nov-2017 Instruction Type:Provider Instructions for Treatment How to access health informa tion online Indication:Nonsmoker Start:03-Nov-2017 Instruction Type:Patient Education How to access health informa tion online - Detail Indication:Nonsmoker Start:03-Nov-2017 Instruction Type:Patient Education Patient Instructions Indication:Nonsmoker Start:03-Nov-2017 Instruction Type:Provider Instructions for Treatment How to access health informa tion online Indication:BMI 25.0-25.9,adult Start:27-Oct-2017 Instruction Type:Patient Education How to access health informa tion online - Detail Indication:BMI 25.0-25.9,adult Start:27-Oct-2017 Instruction Type:Patient Education Patient Instructions Indication:BMI 25.0-25.9,adult Start:27-Oct-2017 Instruction Type:Provider Instructions for Treatment How to access health informa tion online Indication:BMI 25.0-25.9,adult Start:06-Mar-2017 Instruction Type:Patient Education How to access health informa tion online - Detail Indication:BMI 25.0-25.9,adult Start:06-Mar-2017 Instruction Type:Patient Education Patient Instructions Indication:BMI 25.0-25.9,adult Start:06-Mar-2017 Instruction Type:Provider Instructions for Treatment How to access health informa tion online Indication:Nasal congestion Start:09-Oct-2016 Instruction Type:Patient Education How to access health informa tion online - Detail Indication:Nasal congestion Start:09-Oct-2016 Instruction Type:Patient Education Patient Instructions Indication:Nasal congestion Start:09-Oct-2016 Instruction Type:Provider Instructions for Treatment How to access health informa tion online Indication:Need for prophylactic vaccination and inoculation against influenza Start:26-Mar-2016 Instruction Type:Patient Education How to access health informa tion online - Detail Indication:Need for prophylactic vaccination and inoculation against influenza Start:26-Mar-2016 Instruction Type:Patient Education Patient Instructions Indication:Need for prophylactic vaccination and inoculation against influenza Start:26-Mar-2016 Instruction Type:Provider Instructions for Treatment How to access health informa tion online - Detail Indication:Elevated fasting glucose Start:21-Jun-2015 Instruction Type:Patient Education Patient Instructions Indication:Elevated fasting glucose Start:21-Jun-2015 Instruction Type:Provider Instructions for Treatment How to access health informa tion online Indication:Annual physical exam Start:29-Dec-2014 Instruction Type:Patient Education How to access health informa tion online - Detail Indication:Annual physical exam Start:29-Dec-2014 Instruction Type:Patient Education Patient Instructions Indication:Annual physical exam Start:29-Dec-2014 Instruction Type:Provider Instructions for Treatment Patient Instructions Indication:Vertigo Start:14-Nov-2014 Instruction Type:Provider Instructions for Treatment Patient Instructions Indication:Cough Start:25-Aug-2014 Instruction Type:Provider Instructions for Treatment Patient Instructions Indication:Dysthymic Start:04-Jul-2014 Instruction Type:Provider Instructions for Treatment Patient Instructions Indication:Dysthymic Start:29-Sep-2013 Instruction Type:Provider Instructions for Treatment Name Dates Details How to access health informa tion online Indication:BMI 22.0-22.9, adult Start:24-Dec-2018 Instruction Type:Patient Education How to access health informa tion online - Detail Indication:BMI 22.0-22.9, adult Start:24-Dec-2018 Instruction Type:Patient Education Patient Instructions Indication:BMI 22.0-22.9, adult Start:24-Dec-2018 Instruction Type:Provider Instructions for Treatment How to access health informa tion online Indication:Smoker Start:14-May-2018 Instruction Type:Patient Education How to access health informa tion online - Detail Indication:Smoker Start:14-May-2018 Instruction Type:Patient Education Patient Instructions Indication:Smoker Start:14-May-2018 Instruction Type:Provider Instructions for Treatment How to access health informa tion online Indication:Smoker Start:16-Apr-2018 Instruction Type:Patient Education How to access health informa tion online - Detail Indication:Smoker Start:16-Apr-2018 Instruction Type:Patient Education Patient Instructions Indication:Smoker Start:16-Apr-2018 Instruction Type:Provider Instructions for Treatment How to access health informa tion online Indication:Nonsmoker Start:17-Nov-2017 Instruction Type:Patient Education How to access health informa tion online - Detail Indication:Nonsmoker Start:17-Nov-2017 Instruction Type:Patient Education Patient Instructions Indication:Nonsmoker Start:17-Nov-2017 Instruction Type:Provider Instructions for Treatment How to access health informa tion online Indication:Nonsmoker Start:03-Nov-2017 Instruction Type:Patient Education How to access health informa tion online - Detail Indication:Nonsmoker Start:03-Nov-2017 Instruction Type:Patient Education Patient Instructions Indication:Nonsmoker Start:03-Nov-2017 Instruction Type:Provider Instructions for Treatment How to access health informa tion online Indication:BMI 25.0-25.9,adult Start:27-Oct-2017 Instruction Type:Patient Education How to access health informa tion online - Detail Indication:BMI 25.0-25.9,adult Start:27-Oct-2017 Instruction Type:Patient Education Patient Instructions Indication:BMI 25.0-25.9,adult Start:27-Oct-2017 Instruction Type:Provider Instructions for Treatment How to access health informa tion online Indication:BMI 25.0-25.9,adult Start:06-Mar-2017 Instruction Type:Patient Education How to access health informa tion online - Detail Indication:BMI 25.0-25.9,adult Start:06-Mar-2017 Instruction Type:Patient Education Patient Instructions Indication:BMI 25.0-25.9,adult Start:06-Mar-2017 Instruction Type:Provider Instructions for Treatment How to access health informa tion online Indication:Nasal congestion Start:09-Oct-2016 Instruction Type:Patient Education How to access health informa tion online - Detail Indication:Nasal congestion Start:09-Oct-2016 Instruction Type:Patient Education Patient Instructions Indication:Nasal congestion Start:09-Oct-2016 Instruction Type:Provider Instructions for Treatment How to access health informa tion online Indication:Need for prophylactic vaccination and inoculation against influenza Start:26-Mar-2016 Instruction Type:Patient Education How to access health informa tion online - Detail Indication:Need for prophylactic vaccination and inoculation against influenza Start:26-Mar-2016 Instruction Type:Patient Education Patient Instructions Indication:Need for prophylactic vaccination and inoculation against influenza Start:26-Mar-2016 Instruction Type:Provider Instructions for Treatment How to access health informa tion online - Detail Indication:Elevated fasting glucose Start:21-Jun-2015 Instruction Type:Patient Education Patient Instructions Indication:Elevated fasting glucose Start:21-Jun-2015 Instruction Type:Provider Instructions for Treatment How to access health informa tion online Indication:Annual physical exam Start:29-Dec-2014 Instruction Type:Patient Education How to access health informa tion online - Detail Indication:Annual physical exam Start:29-Dec-2014 Instruction Type:Patient Education Patient Instructions Indication:Annual physical exam Start:29-Dec-2014 Instruction Type:Provider Instructions for Treatment Patient Instructions Indication:Vertigo Start:14-Nov-2014 Instruction Type:Provider Instructions for Treatment Patient Instructions Indication:Cough Start:25-Aug-2014 Instruction Type:Provider Instructions for Treatment Patient Instructions Indication:Dysthymic Start:04-Jul-2014 Instruction Type:Provider Instructions for Treatment Patient Instructions Indication:Dysthymic Start:29-Sep-2013 Instruction Type:Provider Instructions for Treatment Name Dates Details How to access health informa tion online Indication:Diabetes mellitus type II, controlled Start:29-Apr-2019 Instruction Type:Patient Education How to access health informa tion online - Detail Indication:Diabetes mellitus type II, controlled Start:29-Apr-2019 Instruction Type:Patient Education Patient Instructions Indication:Diabetes mellitus type II, controlled Start:29-Apr-2019 Instruction Type:Provider Instructions for Treatment How to access health informa tion online Indication:BMI 22.0-22.9, adult Start:24-Dec-2018 Instruction Type:Patient Education How to access health informa tion online - Detail Indication:BMI 22.0-22.9, adult Start:24-Dec-2018 Instruction Type:Patient Education Patient Instructions Indication:BMI 22.0-22.9, adult Start:24-Dec-2018 Instruction Type:Provider Instructions for Treatment How to access health informa tion online Indication:Smoker Start:14-May-2018 Instruction Type:Patient Education How to access health informa tion online - Detail Indication:Smoker Start:14-May-2018 Instruction Type:Patient Education Patient Instructions Indication:Smoker Start:14-May-2018 Instruction Type:Provider Instructions for Treatment How to access health informa tion online Indication:Smoker Start:16-Apr-2018 Instruction Type:Patient Education How to access health informa tion online - Detail Indication:Smoker Start:16-Apr-2018 Instruction Type:Patient Education Patient Instructions Indication:Smoker Start:16-Apr-2018 Instruction Type:Provider Instructions for Treatment How to access health informa tion online Indication:Nonsmoker Start:17-Nov-2017 Instruction Type:Patient Education How to access health informa tion online - Detail Indication:Nonsmoker Start:17-Nov-2017 Instruction Type:Patient Education Patient Instructions Indication:Nonsmoker Start:17-Nov-2017 Instruction Type:Provider Instructions for Treatment How to access health informa tion online Indication:Nonsmoker Start:03-Nov-2017 Instruction Type:Patient Education How to access health informa tion online - Detail Indication:Nonsmoker Start:03-Nov-2017 Instruction Type:Patient Education Patient Instructions Indication:Nonsmoker Start:03-Nov-2017 Instruction Type:Provider Instructions for Treatment How to access health informa tion online Indication:BMI 25.0-25.9,adult Start:27-Oct-2017 Instruction Type:Patient Education How to access health informa tion online - Detail Indication:BMI 25.0-25.9,adult Start:27-Oct-2017 Instruction Type:Patient Education Patient Instructions Indication:BMI 25.0-25.9,adult Start:27-Oct-2017 Instruction Type:Provider Instructions for Treatment How to access health informa tion online Indication:BMI 25.0-25.9,adult Start:06-Mar-2017 Instruction Type:Patient Education How to access health informa tion online - Detail Indication:BMI 25.0-25.9,adult Start:06-Mar-2017 Instruction Type:Patient Education Patient Instructions Indication:BMI 25.0-25.9,adult Start:06-Mar-2017 Instruction Type:Provider Instructions for Treatment How to access health informa tion online Indication:Nasal congestion Start:09-Oct-2016 Instruction Type:Patient Education How to access health informa tion online - Detail Indication:Nasal congestion Start:09-Oct-2016 Instruction Type:Patient Education Patient Instructions Indication:Nasal congestion Start:09-Oct-2016 Instruction Type:Provider Instructions for Treatment How to access health informa tion online Indication:Need for prophylactic vaccination and inoculation against influenza Start:26-Mar-2016 Instruction Type:Patient Education How to access health informa tion online - Detail Indication:Need for prophylactic vaccination and inoculation against influenza Start:26-Mar-2016 Instruction Type:Patient Education Patient Instructions Indication:Need for prophylactic vaccination and inoculation against influenza Start:26-Mar-2016 Instruction Type:Provider Instructions for Treatment How to access health informa tion online - Detail Indication:Elevated fasting glucose Start:21-Jun-2015 Instruction Type:Patient Education Patient Instructions Indication:Elevated fasting glucose Start:21-Jun-2015 Instruction Type:Provider Instructions for Treatment How to access health informa tion online Indication:Annual physical exam Start:29-Dec-2014 Instruction Type:Patient Education How to access health informa tion online - Detail Indication:Annual physical exam Start:29-Dec-2014 Instruction Type:Patient Education Patient Instructions Indication:Annual physical exam Start:29-Dec-2014 Instruction Type:Provider Instructions for Treatment Patient Instructions Indication:Vertigo Start:14-Nov-2014 Instruction Type:Provider Instructions for Treatment Patient Instructions Indication:Cough Start:25-Aug-2014 Instruction Type:Provider Instructions for Treatment Patient Instructions Indication:Dysthymic Start:04-Jul-2014 Instruction Type:Provider Instructions for Treatment Patient Instructions Indication:Dysthymic Start:29-Sep-2013 Instruction Type:Provider Instructions for Treatment Name Dates Details How to access health informa tion online Indication:Diabetes mellitus type II, controlled Start:29-Apr-2019 Instruction Type:Patient Education How to access health informa tion online - Detail Indication:Diabetes mellitus type II, controlled Start:29-Apr-2019 Instruction Type:Patient Education Patient Instructions Indication:Diabetes mellitus type II, controlled Start:29-Apr-2019 Instruction Type:Provider Instructions for Treatment How to access health informa tion online Indication:BMI 22.0-22.9, adult Start:24-Dec-2018 Instruction Type:Patient Education How to access health informa tion online - Detail Indication:BMI 22.0-22.9, adult Start:24-Dec-2018 Instruction Type:Patient Education Patient Instructions Indication:BMI 22.0-22.9, adult Start:24-Dec-2018 Instruction Type:Provider Instructions for Treatment How to access health informa tion online Indication:Smoker Start:14-May-2018 Instruction Type:Patient Education How to access health informa tion online - Detail Indication:Smoker Start:14-May-2018 Instruction Type:Patient Education Patient Instructions Indication:Smoker Start:14-May-2018 Instruction Type:Provider Instructions for Treatment How to access health informa tion online Indication:Smoker Start:16-Apr-2018 Instruction Type:Patient Education How to access health informa tion online - Detail Indication:Smoker Start:16-Apr-2018 Instruction Type:Patient Education Patient Instructions Indication:Smoker Start:16-Apr-2018 Instruction Type:Provider Instructions for Treatment How to access health informa tion online Indication:Nonsmoker Start:17-Nov-2017 Instruction Type:Patient Education How to access health informa tion online - Detail Indication:Nonsmoker Start:17-Nov-2017 Instruction Type:Patient Education Patient Instructions Indication:Nonsmoker Start:17-Nov-2017 Instruction Type:Provider Instructions for Treatment How to access health informa tion online Indication:Nonsmoker Start:03-Nov-2017 Instruction Type:Patient Education How to access health informa tion online - Detail Indication:Nonsmoker Start:03-Nov-2017 Instruction Type:Patient Education Patient Instructions Indication:Nonsmoker Start:03-Nov-2017 Instruction Type:Provider Instructions for Treatment How to access health informa tion online Indication:BMI 25.0-25.9,adult Start:27-Oct-2017 Instruction Type:Patient Education How to access health informa tion online - Detail Indication:BMI 25.0-25.9,adult Start:27-Oct-2017 Instruction Type:Patient Education Patient Instructions Indication:BMI 25.0-25.9,adult Start:27-Oct-2017 Instruction Type:Provider Instructions for Treatment How to access health informa tion online Indication:BMI 25.0-25.9,adult Start:06-Mar-2017 Instruction Type:Patient Education How to access health informa tion online - Detail Indication:BMI 25.0-25.9,adult Start:06-Mar-2017 Instruction Type:Patient Education Patient Instructions Indication:BMI 25.0-25.9,adult Start:06-Mar-2017 Instruction Type:Provider Instructions for Treatment How to access health informa tion online Indication:Nasal congestion Start:09-Oct-2016 Instruction Type:Patient Education How to access health informa tion online - Detail Indication:Nasal congestion Start:09-Oct-2016 Instruction Type:Patient Education Patient Instructions Indication:Nasal congestion Start:09-Oct-2016 Instruction Type:Provider Instructions for Treatment How to access health informa tion online Indication:Need for prophylactic vaccination and inoculation against influenza Start:26-Mar-2016 Instruction Type:Patient Education How to access health informa tion online - Detail Indication:Need for prophylactic vaccination and inoculation against influenza Start:26-Mar-2016 Instruction Type:Patient Education Patient Instructions Indication:Need for prophylactic vaccination and inoculation against influenza Start:26-Mar-2016 Instruction Type:Provider Instructions for Treatment How to access health informa tion online - Detail Indication:Elevated fasting glucose Start:21-Jun-2015 Instruction Type:Patient Education Patient Instructions Indication:Elevated fasting glucose Start:21-Jun-2015 Instruction Type:Provider Instructions for Treatment How to access health informa tion online Indication:Annual physical exam Start:29-Dec-2014 Instruction Type:Patient Education How to access health informa tion online - Detail Indication:Annual physical exam Start:29-Dec-2014 Instruction Type:Patient Education Patient Instructions Indication:Annual physical exam Start:29-Dec-2014 Instruction Type:Provider Instructions for Treatment Patient Instructions Indication:Vertigo Start:14-Nov-2014 Instruction Type:Provider Instructions for Treatment Patient Instructions Indication:Cough Start:25-Aug-2014 Instruction Type:Provider Instructions for Treatment Patient Instructions Indication:Dysthymic Start:04-Jul-2014 Instruction Type:Provider Instructions for Treatment Patient Instructions Indication:Dysthymic Start:29-Sep-2013 Instruction Type:Provider Instructions for Treatment Name Dates Details How to access health informa tion online Indication:BMI 24.0-24.9, adult Start:23-Mar-2020 Instruction Type:Patient Education How to access health informa tion online - Detail Indication:BMI 24.0-24.9, adult Start:23-Mar-2020 Instruction Type:Patient Education Patient Instructions Indication:BMI 24.0-24.9, adult Start:23-Mar-2020 Instruction Type:Provider Instructions for Treatment How to access health informa tion online Indication:Diabetes mellitus type II, controlled Start:08-Dec-2019 Instruction Type:Patient Education How to access health informa tion online - Detail Indication:Diabetes mellitus type II, controlled Start:08-Dec-2019 Instruction Type:Patient Education Patient Instructions Indication:Diabetes mellitus type II, controlled Start:08-Dec-2019 Instruction Type:Provider Instructions for Treatment How to access health informa tion online Indication:Diabetes mellitus type II, controlled Start:01-Sep-2019 Instruction Type:Patient Education How to access health informa tion online - Detail Indication:Diabetes mellitus type II, controlled Start:01-Sep-2019 Instruction Type:Patient Education Patient Instructions Indication:Diabetes mellitus type II, controlled Start:01-Sep-2019 Instruction Type:Provider Instructions for Treatment How to access health informa tion online Indication:Diabetes mellitus type II, controlled Start:29-Apr-2019 Instruction Type:Patient Education How to access health informa tion online - Detail Indication:Diabetes mellitus type II, controlled Start:29-Apr-2019 Instruction Type:Patient Education Patient Instructions Indication:Diabetes mellitus type II, controlled Start:29-Apr-2019 Instruction Type:Provider Instructions for Treatment How to access health informa tion online Indication:BMI 22.0-22.9, adult Start:24-Dec-2018 Instruction Type:Patient Education How to access health informa tion online - Detail Indication:BMI 22.0-22.9, adult Start:24-Dec-2018 Instruction Type:Patient Education Patient Instructions Indication:BMI 22.0-22.9, adult Start:24-Dec-2018 Instruction Type:Provider Instructions for Treatment How to access health informa tion online Indication:Smoker Start:14-May-2018 Instruction Type:Patient Education How to access health informa tion online - Detail Indication:Smoker Start:14-May-2018 Instruction Type:Patient Education Patient Instructions Indication:Smoker Start:14-May-2018 Instruction Type:Provider Instructions for Treatment How to access health informa tion online Indication:Smoker Start:16-Apr-2018 Instruction Type:Patient Education How to access health informa tion online - Detail Indication:Smoker Start:16-Apr-2018 Instruction Type:Patient Education Patient Instructions Indication:Smoker Start:16-Apr-2018 Instruction Type:Provider Instructions for Treatment How to access health informa tion online Indication:Nonsmoker Start:17-Nov-2017 Instruction Type:Patient Education How to access health informa tion online - Detail Indication:Nonsmoker Start:17-Nov-2017 Instruction Type:Patient Education Patient Instructions Indication:Nonsmoker Start:17-Nov-2017 Instruction Type:Provider Instructions for Treatment How to access health informa tion online Indication:Nonsmoker Start:03-Nov-2017 Instruction Type:Patient Education How to access health informa tion online - Detail Indication:Nonsmoker Start:03-Nov-2017 Instruction Type:Patient Education Patient Instructions Indication:Nonsmoker Start:03-Nov-2017 Instruction Type:Provider Instructions for Treatment How to access health informa tion online Indication:BMI 25.0-25.9,adult Start:27-Oct-2017 Instruction Type:Patient Education How to access health informa tion online - Detail Indication:BMI 25.0-25.9,adult Start:27-Oct-2017 Instruction Type:Patient Education Patient Instructions Indication:BMI 25.0-25.9,adult Start:27-Oct-2017 Instruction Type:Provider Instructions for Treatment How to access health informa tion online Indication:BMI 25.0-25.9,adult Start:06-Mar-2017 Instruction Type:Patient Education How to access health informa tion online - Detail Indication:BMI 25.0-25.9,adult Start:06-Mar-2017 Instruction Type:Patient Education Patient Instructions Indication:BMI 25.0-25.9,adult Start:06-Mar-2017 Instruction Type:Provider Instructions for Treatment How to access health informa tion online Indication:Nasal congestion Start:09-Oct-2016 Instruction Type:Patient Education How to access health informa tion online - Detail Indication:Nasal congestion Start:09-Oct-2016 Instruction Type:Patient Education Patient Instructions Indication:Nasal congestion Start:09-Oct-2016 Instruction Type:Provider Instructions for Treatment How to access health informa tion online Indication:Need for prophylactic vaccination and inoculation against influenza Start:26-Mar-2016 Instruction Type:Patient Education How to access health informa tion online - Detail Indication:Need for prophylactic vaccination and inoculation against influenza Start:26-Mar-2016 Instruction Type:Patient Education Patient Instructions Indication:Need for prophylactic vaccination and inoculation against influenza Start:26-Mar-2016 Instruction Type:Provider Instructions for Treatment How to access health informa tion online - Detail Indication:Elevated fasting glucose Start:21-Jun-2015 Instruction Type:Patient Education Patient Instructions Indication:Elevated fasting glucose Start:21-Jun-2015 Instruction Type:Provider Instructions for Treatment How to access health informa tion online Indication:Annual physical exam Start:29-Dec-2014 Instruction Type:Patient Education How to access health informa tion online - Detail Indication:Annual physical exam Start:29-Dec-2014 Instruction Type:Patient Education Patient Instructions Indication:Annual physical exam Start:29-Dec-2014 Instruction Type:Provider Instructions for Treatment Patient Instructions Indication:Vertigo Start:14-Nov-2014 Instruction Type:Provider Instructions for Treatment Patient Instructions Indication:Cough Start:25-Aug-2014 Instruction Type:Provider Instructions for Treatment Patient Instructions Indication:Dysthymic Start:04-Jul-2014 Instruction Type:Provider Instructions for Treatment Patient Instructions Indication:Dysthymic Start:29-Sep-2013 Instruction Type:Provider Instructions for Treatment Name Dates Details How to access health informa tion online Indication:BMI 24.0-24.9, adult Start:23-Mar-2020 Instruction Type:Patient Education How to access health informa tion online - Detail Indication:BMI 24.0-24.9, adult Start:23-Mar-2020 Instruction Type:Patient Education Patient Instructions Indication:BMI 24.0-24.9, adult Start:23-Mar-2020 Instruction Type:Provider Instructions for Treatment How to access health informa tion online Indication:Diabetes mellitus type II, controlled Start:08-Dec-2019 Instruction Type:Patient Education How to access health informa tion online - Detail Indication:Diabetes mellitus type II, controlled Start:08-Dec-2019 Instruction Type:Patient Education Patient Instructions Indication:Diabetes mellitus type II, controlled Start:08-Dec-2019 Instruction Type:Provider Instructions for Treatment How to access health informa tion online Indication:Diabetes mellitus type II, controlled Start:01-Sep-2019 Instruction Type:Patient Education How to access health informa tion online - Detail Indication:Diabetes mellitus type II, controlled Start:01-Sep-2019 Instruction Type:Patient Education Patient Instructions Indication:Diabetes mellitus type II, controlled Start:01-Sep-2019 Instruction Type:Provider Instructions for Treatment How to access health informa tion online Indication:Diabetes mellitus type II, controlled Start:29-Apr-2019 Instruction Type:Patient Education How to access health informa tion online - Detail Indication:Diabetes mellitus type II, controlled Start:29-Apr-2019 Instruction Type:Patient Education Patient Instructions Indication:Diabetes mellitus type II, controlled Start:29-Apr-2019 Instruction Type:Provider Instructions for Treatment How to access health informa tion online Indication:BMI 22.0-22.9, adult Start:24-Dec-2018 Instruction Type:Patient Education How to access health informa tion online - Detail Indication:BMI 22.0-22.9, adult Start:24-Dec-2018 Instruction Type:Patient Education Patient Instructions Indication:BMI 22.0-22.9, adult Start:24-Dec-2018 Instruction Type:Provider Instructions for Treatment How to access health informa tion online Indication:Smoker Start:14-May-2018 Instruction Type:Patient Education How to access health informa tion online - Detail Indication:Smoker Start:14-May-2018 Instruction Type:Patient Education Patient Instructions Indication:Smoker Start:14-May-2018 Instruction Type:Provider Instructions for Treatment How to access health informa tion online Indication:Smoker Start:16-Apr-2018 Instruction Type:Patient Education How to access health informa tion online - Detail Indication:Smoker Start:16-Apr-2018 Instruction Type:Patient Education Patient Instructions Indication:Smoker Start:16-Apr-2018 Instruction Type:Provider Instructions for Treatment How to access health informa tion online Indication:Nonsmoker Start:17-Nov-2017 Instruction Type:Patient Education How to access health informa tion online - Detail Indication:Nonsmoker Start:17-Nov-2017 Instruction Type:Patient Education Patient Instructions Indication:Nonsmoker Start:17-Nov-2017 Instruction Type:Provider Instructions for Treatment How to access health informa tion online Indication:Nonsmoker Start:03-Nov-2017 Instruction Type:Patient Education How to access health informa tion online - Detail Indication:Nonsmoker Start:03-Nov-2017 Instruction Type:Patient Education Patient Instructions Indication:Nonsmoker Start:03-Nov-2017 Instruction Type:Provider Instructions for Treatment How to access health informa tion online Indication:BMI 25.0-25.9,adult Start:27-Oct-2017 Instruction Type:Patient Education How to access health informa tion online - Detail Indication:BMI 25.0-25.9,adult Start:27-Oct-2017 Instruction Type:Patient Education Patient Instructions Indication:BMI 25.0-25.9,adult Start:27-Oct-2017 Instruction Type:Provider Instructions for Treatment How to access health informa tion online Indication:BMI 25.0-25.9,adult Start:06-Mar-2017 Instruction Type:Patient Education How to access health informa tion online - Detail Indication:BMI 25.0-25.9,adult Start:06-Mar-2017 Instruction Type:Patient Education Patient Instructions Indication:BMI 25.0-25.9,adult Start:06-Mar-2017 Instruction Type:Provider Instructions for Treatment How to access health informa tion online Indication:Nasal congestion Start:09-Oct-2016 Instruction Type:Patient Education How to access health informa tion online - Detail Indication:Nasal congestion Start:09-Oct-2016 Instruction Type:Patient Education Patient Instructions Indication:Nasal congestion Start:09-Oct-2016 Instruction Type:Provider Instructions for Treatment How to access health informa tion online Indication:Need for prophylactic vaccination and inoculation against influenza Start:26-Mar-2016 Instruction Type:Patient Education How to access health informa tion online - Detail Indication:Need for prophylactic vaccination and inoculation against influenza Start:26-Mar-2016 Instruction Type:Patient Education Patient Instructions Indication:Need for prophylactic vaccination and inoculation against influenza Start:26-Mar-2016 Instruction Type:Provider Instructions for Treatment How to access health informa tion online - Detail Indication:Elevated fasting glucose Start:21-Jun-2015 Instruction Type:Patient Education Patient Instructions Indication:Elevated fasting glucose Start:21-Jun-2015 Instruction Type:Provider Instructions for Treatment How to access health informa tion online Indication:Annual physical exam Start:29-Dec-2014 Instruction Type:Patient Education How to access health informa tion online - Detail Indication:Annual physical exam Start:29-Dec-2014 Instruction Type:Patient Education Patient Instructions Indication:Annual physical exam Start:29-Dec-2014 Instruction Type:Provider Instructions for Treatment Patient Instructions Indication:Vertigo Start:14-Nov-2014 Instruction Type:Provider Instructions for Treatment Patient Instructions Indication:Cough Start:25-Aug-2014 Instruction Type:Provider Instructions for Treatment Patient Instructions Indication:Dysthymic Start:04-Jul-2014 Instruction Type:Provider Instructions for Treatment Patient Instructions Indication:Dysthymic Start:29-Sep-2013 Instruction Type:Provider Instructions for Treatment Name Dates Details How to access health informa tion online Indication:BMI 24.0-24.9, adult Start:23-Mar-2020 Instruction Type:Patient Education How to access health informa tion online - Detail Indication:BMI 24.0-24.9, adult Start:23-Mar-2020 Instruction Type:Patient Education Patient Instructions Indication:BMI 24.0-24.9, adult Start:23-Mar-2020 Instruction Type:Provider Instructions for Treatment How to access health informa tion online Indication:Diabetes mellitus type II, controlled Start:08-Dec-2019 Instruction Type:Patient Education How to access health informa tion online - Detail Indication:Diabetes mellitus type II, controlled Start:08-Dec-2019 Instruction Type:Patient Education Patient Instructions Indication:Diabetes mellitus type II, controlled Start:08-Dec-2019 Instruction Type:Provider Instructions for Treatment How to access health informa tion online Indication:Diabetes mellitus type II, controlled Start:01-Sep-2019 Instruction Type:Patient Education How to access health informa tion online - Detail Indication:Diabetes mellitus type II, controlled Start:01-Sep-2019 Instruction Type:Patient Education Patient Instructions Indication:Diabetes mellitus type II, controlled Start:01-Sep-2019 Instruction Type:Provider Instructions for Treatment How to access health informa tion online Indication:Diabetes mellitus type II, controlled Start:29-Apr-2019 Instruction Type:Patient Education How to access health informa tion online - Detail Indication:Diabetes mellitus type II, controlled Start:29-Apr-2019 Instruction Type:Patient Education Patient Instructions Indication:Diabetes mellitus type II, controlled Start:29-Apr-2019 Instruction Type:Provider Instructions for Treatment How to access health informa tion online Indication:BMI 22.0-22.9, adult Start:24-Dec-2018 Instruction Type:Patient Education How to access health informa tion online - Detail Indication:BMI 22.0-22.9, adult Start:24-Dec-2018 Instruction Type:Patient Education Patient Instructions Indication:BMI 22.0-22.9, adult Start:24-Dec-2018 Instruction Type:Provider Instructions for Treatment How to access health informa tion online Indication:Smoker Start:14-May-2018 Instruction Type:Patient Education How to access health informa tion online - Detail Indication:Smoker Start:14-May-2018 Instruction Type:Patient Education Patient Instructions Indication:Smoker Start:14-May-2018 Instruction Type:Provider Instructions for Treatment How to access health informa tion online Indication:Smoker Start:16-Apr-2018 Instruction Type:Patient Education How to access health informa tion online - Detail Indication:Smoker Start:16-Apr-2018 Instruction Type:Patient Education Patient Instructions Indication:Smoker Start:16-Apr-2018 Instruction Type:Provider Instructions for Treatment How to access health informa tion online Indication:Nonsmoker Start:17-Nov-2017 Instruction Type:Patient Education How to access health informa tion online - Detail Indication:Nonsmoker Start:17-Nov-2017 Instruction Type:Patient Education Patient Instructions Indication:Nonsmoker Start:17-Nov-2017 Instruction Type:Provider Instructions for Treatment How to access health informa tion online Indication:Nonsmoker Start:03-Nov-2017 Instruction Type:Patient Education How to access health informa tion online - Detail Indication:Nonsmoker Start:03-Nov-2017 Instruction Type:Patient Education Patient Instructions Indication:Nonsmoker Start:03-Nov-2017 Instruction Type:Provider Instructions for Treatment How to access health informa tion online Indication:BMI 25.0-25.9,adult Start:27-Oct-2017 Instruction Type:Patient Education How to access health informa tion online - Detail Indication:BMI 25.0-25.9,adult Start:27-Oct-2017 Instruction Type:Patient Education Patient Instructions Indication:BMI 25.0-25.9,adult Start:27-Oct-2017 Instruction Type:Provider Instructions for Treatment How to access health informa tion online Indication:BMI 25.0-25.9,adult Start:06-Mar-2017 Instruction Type:Patient Education How to access health informa tion online - Detail Indication:BMI 25.0-25.9,adult Start:06-Mar-2017 Instruction Type:Patient Education Patient Instructions Indication:BMI 25.0-25.9,adult Start:06-Mar-2017 Instruction Type:Provider Instructions for Treatment How to access health informa tion online Indication:Nasal congestion Start:09-Oct-2016 Instruction Type:Patient Education How to access health informa tion online - Detail Indication:Nasal congestion Start:09-Oct-2016 Instruction Type:Patient Education Patient Instructions Indication:Nasal congestion Start:09-Oct-2016 Instruction Type:Provider Instructions for Treatment How to access health informa tion online Indication:Need for prophylactic vaccination and inoculation against influenza Start:26-Mar-2016 Instruction Type:Patient Education How to access health informa tion online - Detail Indication:Need for prophylactic vaccination and inoculation against influenza Start:26-Mar-2016 Instruction Type:Patient Education Patient Instructions Indication:Need for prophylactic vaccination and inoculation against influenza Start:26-Mar-2016 Instruction Type:Provider Instructions for Treatment How to access health informa tion online - Detail Indication:Elevated fasting glucose Start:21-Jun-2015 Instruction Type:Patient Education Patient Instructions Indication:Elevated fasting glucose Start:21-Jun-2015 Instruction Type:Provider Instructions for Treatment How to access health informa tion online Indication:Annual physical exam Start:29-Dec-2014 Instruction Type:Patient Education How to access health informa tion online - Detail Indication:Annual physical exam Start:29-Dec-2014 Instruction Type:Patient Education Patient Instructions Indication:Annual physical exam Start:29-Dec-2014 Instruction Type:Provider Instructions for Treatment Patient Instructions Indication:Vertigo Start:14-Nov-2014 Instruction Type:Provider Instructions for Treatment Patient Instructions Indication:Cough Start:25-Aug-2014 Instruction Type:Provider Instructions for Treatment Patient Instructions Indication:Dysthymic Start:04-Jul-2014 Instruction Type:Provider Instructions for Treatment Patient Instructions Indication:Dysthymic Start:29-Sep-2013 Instruction Type:Provider Instructions for Treatment Name Dates Details How to access health informa tion online Indication:BMI 24.0-24.9, adult Start:23-Mar-2020 Instruction Type:Patient Education How to access health informa tion online - Detail Indication:BMI 24.0-24.9, adult Start:23-Mar-2020 Instruction Type:Patient Education Patient Instructions Indication:BMI 24.0-24.9, adult Start:23-Mar-2020 Instruction Type:Provider Instructions for Treatment How to access health informa tion online Indication:Diabetes mellitus type II, controlled Start:08-Dec-2019 Instruction Type:Patient Education How to access health informa tion online - Detail Indication:Diabetes mellitus type II, controlled Start:08-Dec-2019 Instruction Type:Patient Education Patient Instructions Indication:Diabetes mellitus type II, controlled Start:08-Dec-2019 Instruction Type:Provider Instructions for Treatment How to access health informa tion online Indication:Diabetes mellitus type II, controlled Start:01-Sep-2019 Instruction Type:Patient Education How to access health informa tion online - Detail Indication:Diabetes mellitus type II, controlled Start:01-Sep-2019 Instruction Type:Patient Education Patient Instructions Indication:Diabetes mellitus type II, controlled Start:01-Sep-2019 Instruction Type:Provider Instructions for Treatment How to access health informa tion online Indication:Diabetes mellitus type II, controlled Start:29-Apr-2019 Instruction Type:Patient Education How to access health informa tion online - Detail Indication:Diabetes mellitus type II, controlled Start:29-Apr-2019 Instruction Type:Patient Education Patient Instructions Indication:Diabetes mellitus type II, controlled Start:29-Apr-2019 Instruction Type:Provider Instructions for Treatment How to access health informa tion online Indication:BMI 22.0-22.9, adult Start:24-Dec-2018 Instruction Type:Patient Education How to access health informa tion online - Detail Indication:BMI 22.0-22.9, adult Start:24-Dec-2018 Instruction Type:Patient Education Patient Instructions Indication:BMI 22.0-22.9, adult Start:24-Dec-2018 Instruction Type:Provider Instructions for Treatment How to access health informa tion online Indication:Smoker Start:14-May-2018 Instruction Type:Patient Education How to access health informa tion online - Detail Indication:Smoker Start:14-May-2018 Instruction Type:Patient Education Patient Instructions Indication:Smoker Start:14-May-2018 Instruction Type:Provider Instructions for Treatment How to access health informa tion online Indication:Smoker Start:16-Apr-2018 Instruction Type:Patient Education How to access health informa tion online - Detail Indication:Smoker Start:16-Apr-2018 Instruction Type:Patient Education Patient Instructions Indication:Smoker Start:16-Apr-2018 Instruction Type:Provider Instructions for Treatment How to access health informa tion online Indication:Nonsmoker Start:17-Nov-2017 Instruction Type:Patient Education How to access health informa tion online - Detail Indication:Nonsmoker Start:17-Nov-2017 Instruction Type:Patient Education Patient Instructions Indication:Nonsmoker Start:17-Nov-2017 Instruction Type:Provider Instructions for Treatment How to access health informa tion online Indication:Nonsmoker Start:03-Nov-2017 Instruction Type:Patient Education How to access health informa tion online - Detail Indication:Nonsmoker Start:03-Nov-2017 Instruction Type:Patient Education Patient Instructions Indication:Nonsmoker Start:03-Nov-2017 Instruction Type:Provider Instructions for Treatment How to access health informa tion online Indication:BMI 25.0-25.9,adult Start:27-Oct-2017 Instruction Type:Patient Education How to access health informa tion online - Detail Indication:BMI 25.0-25.9,adult Start:27-Oct-2017 Instruction Type:Patient Education Patient Instructions Indication:BMI 25.0-25.9,adult Start:27-Oct-2017 Instruction Type:Provider Instructions for Treatment How to access health informa tion online Indication:BMI 25.0-25.9,adult Start:06-Mar-2017 Instruction Type:Patient Education How to access health informa tion online - Detail Indication:BMI 25.0-25.9,adult Start:06-Mar-2017 Instruction Type:Patient Education Patient Instructions Indication:BMI 25.0-25.9,adult Start:06-Mar-2017 Instruction Type:Provider Instructions for Treatment How to access health informa tion online Indication:Nasal congestion Start:09-Oct-2016 Instruction Type:Patient Education How to access health informa tion online - Detail Indication:Nasal congestion Start:09-Oct-2016 Instruction Type:Patient Education Patient Instructions Indication:Nasal congestion Start:09-Oct-2016 Instruction Type:Provider Instructions for Treatment How to access health informa tion online Indication:Need for prophylactic vaccination and inoculation against influenza Start:26-Mar-2016 Instruction Type:Patient Education How to access health informa tion online - Detail Indication:Need for prophylactic vaccination and inoculation against influenza Start:26-Mar-2016 Instruction Type:Patient Education Patient Instructions Indication:Need for prophylactic vaccination and inoculation against influenza Start:26-Mar-2016 Instruction Type:Provider Instructions for Treatment How to access health informa tion online - Detail Indication:Elevated fasting glucose Start:21-Jun-2015 Instruction Type:Patient Education Patient Instructions Indication:Elevated fasting glucose Start:21-Jun-2015 Instruction Type:Provider Instructions for Treatment How to access health informa tion online Indication:Annual physical exam Start:29-Dec-2014 Instruction Type:Patient Education How to access health informa tion online - Detail Indication:Annual physical exam Start:29-Dec-2014 Instruction Type:Patient Education Patient Instructions Indication:Annual physical exam Start:29-Dec-2014 Instruction Type:Provider Instructions for Treatment Patient Instructions Indication:Vertigo Start:14-Nov-2014 Instruction Type:Provider Instructions for Treatment Patient Instructions Indication:Cough Start:25-Aug-2014 Instruction Type:Provider Instructions for Treatment Patient Instructions Indication:Dysthymic Start:04-Jul-2014 Instruction Type:Provider Instructions for Treatment Patient Instructions Indication:Dysthymic Start:29-Sep-2013 Instruction Type:Provider Instructions for Treatment Name Dates Details How to Access Health Informa tion Online using Patient Portal and [employer]rd [employer] Apps Indication:Nonsmoker Start:15-Jun-2020 Instruction Type:Patient Education Patient Instructions Indication:Nonsmoker Start:15-Jun-2020 Instruction Type:Provider Instructions for Treatment How to access health informa tion online Indication:BMI 24.0-24.9, adult Start:23-Mar-2020 Instruction Type:Patient Education How to access health informa tion online - Detail Indication:BMI 24.0-24.9, adult Start:23-Mar-2020 Instruction Type:Patient Education Patient Instructions Indication:BMI 24.0-24.9, adult Start:23-Mar-2020 Instruction Type:Provider Instructions for Treatment How to access health informa tion online Indication:Diabetes mellitus type II, controlled Start:08-Dec-2019 Instruction Type:Patient Education How to access health informa tion online - Detail Indication:Diabetes mellitus type II, controlled Start:08-Dec-2019 Instruction Type:Patient Education Patient Instructions Indication:Diabetes mellitus type II, controlled Start:08-Dec-2019 Instruction Type:Provider Instructions for Treatment How to access health informa tion online Indication:Diabetes mellitus type II, controlled Start:01-Sep-2019 Instruction Type:Patient Education How to access health informa tion online - Detail Indication:Diabetes mellitus type II, controlled Start:01-Sep-2019 Instruction Type:Patient Education Patient Instructions Indication:Diabetes mellitus type II, controlled Start:01-Sep-2019 Instruction Type:Provider Instructions for Treatment How to access health informa tion online Indication:Diabetes mellitus type II, controlled Start:29-Apr-2019 Instruction Type:Patient Education How to access health informa tion online - Detail Indication:Diabetes mellitus type II, controlled Start:29-Apr-2019 Instruction Type:Patient Education Patient Instructions Indication:Diabetes mellitus type II, controlled Start:29-Apr-2019 Instruction Type:Provider Instructions for Treatment How to access health informa tion online Indication:BMI 22.0-22.9, adult Start:24-Dec-2018 Instruction Type:Patient Education How to access health informa tion online - Detail Indication:BMI 22.0-22.9, adult Start:24-Dec-2018 Instruction Type:Patient Education Patient Instructions Indication:BMI 22.0-22.9, adult Start:24-Dec-2018 Instruction Type:Provider Instructions for Treatment How to access health informa tion online Indication:Smoker Start:14-May-2018 Instruction Type:Patient Education How to access health informa tion online - Detail Indication:Smoker Start:14-May-2018 Instruction Type:Patient Education Patient Instructions Indication:Smoker Start:14-May-2018 Instruction Type:Provider Instructions for Treatment How to access health informa tion online Indication:Smoker Start:16-Apr-2018 Instruction Type:Patient Education How to access health informa tion online - Detail Indication:Smoker Start:16-Apr-2018 Instruction Type:Patient Education Patient Instructions Indication:Smoker Start:16-Apr-2018 Instruction Type:Provider Instructions for Treatment How to access health informa tion online Indication:Nonsmoker Start:17-Nov-2017 Instruction Type:Patient Education How to access health informa tion online - Detail Indication:Nonsmoker Start:17-Nov-2017 Instruction Type:Patient Education Patient Instructions Indication:Nonsmoker Start:17-Nov-2017 Instruction Type:Provider Instructions for Treatment How to access health informa tion online Indication:Nonsmoker Start:03-Nov-2017 Instruction Type:Patient Education How to access health informa tion online - Detail Indication:Nonsmoker Start:03-Nov-2017 Instruction Type:Patient Education Patient Instructions Indication:Nonsmoker Start:03-Nov-2017 Instruction Type:Provider Instructions for Treatment How to access health informa tion online Indication:BMI 25.0-25.9,adult Start:27-Oct-2017 Instruction Type:Patient Education How to access health informa tion online - Detail Indication:BMI 25.0-25.9,adult Start:27-Oct-2017 Instruction Type:Patient Education Patient Instructions Indication:BMI 25.0-25.9,adult Start:27-Oct-2017 Instruction Type:Provider Instructions for Treatment How to access health informa tion online Indication:BMI 25.0-25.9,adult Start:06-Mar-2017 Instruction Type:Patient Education How to access health informa tion online - Detail Indication:BMI 25.0-25.9,adult Start:06-Mar-2017 Instruction Type:Patient Education Patient Instructions Indication:BMI 25.0-25.9,adult Start:06-Mar-2017 Instruction Type:Provider Instructions for Treatment How to access health informa tion online Indication:Nasal congestion Start:09-Oct-2016 Instruction Type:Patient Education How to access health informa tion online - Detail Indication:Nasal congestion Start:09-Oct-2016 Instruction Type:Patient Education Patient Instructions Indication:Nasal congestion Start:09-Oct-2016 Instruction Type:Provider Instructions for Treatment How to access health informa tion online Indication:Need for prophylactic vaccination and inoculation against influenza Start:26-Mar-2016 Instruction Type:Patient Education How to access health informa tion online - Detail Indication:Need for prophylactic vaccination and inoculation against influenza Start:26-Mar-2016 Instruction Type:Patient Education Patient Instructions Indication:Need for prophylactic vaccination and inoculation against influenza Start:26-Mar-2016 Instruction Type:Provider Instructions for Treatment How to access health informa tion online - Detail Indication:Elevated fasting glucose Start:21-Jun-2015 Instruction Type:Patient Education Patient Instructions Indication:Elevated fasting glucose Start:21-Jun-2015 Instruction Type:Provider Instructions for Treatment How to access health informa tion online Indication:Annual physical exam Start:29-Dec-2014 Instruction Type:Patient Education How to access health informa tion online - Detail Indication:Annual physical exam Start:29-Dec-2014 Instruction Type:Patient Education Patient Instructions Indication:Annual physical exam Start:29-Dec-2014 Instruction Type:Provider Instructions for Treatment Patient Instructions Indication:Vertigo Start:14-Nov-2014 Instruction Type:Provider Instructions for Treatment Patient Instructions Indication:Cough Start:25-Aug-2014 Instruction Type:Provider Instructions for Treatment Patient Instructions Indication:Dysthymic Start:04-Jul-2014 Instruction Type:Provider Instructions for Treatment Patient Instructions Indication:Dysthymic Start:29-Sep-2013 Instruction Type:Provider Instructions for Treatment Name Dates Details How to Access Health Informa tion Online using Patient Portal and [employer] Apps Indication:Nonsmoker Start:15-Jun-2020 Instruction Type:Patient Education Patient Instructions Indication:Nonsmoker Start:15-Jun-2020 Instruction Type:Provider Instructions for Treatment How to access health informa tion online Indication:BMI 24.0-24.9, adult Start:23-Mar-2020 Instruction Type:Patient Education How to access health informa tion online - Detail Indication:BMI 24.0-24.9, adult Start:23-Mar-2020 Instruction Type:Patient Education Patient Instructions Indication:BMI 24.0-24.9, adult Start:23-Mar-2020 Instruction Type:Provider Instructions for Treatment How to access health informa tion online Indication:Diabetes mellitus type II, controlled Start:08-Dec-2019 Instruction Type:Patient Education How to access health informa tion online - Detail Indication:Diabetes mellitus type II, controlled Start:08-Dec-2019 Instruction Type:Patient Education Patient Instructions Indication:Diabetes mellitus type II, controlled Start:08-Dec-2019 Instruction Type:Provider Instructions for Treatment How to access health informa tion online Indication:Diabetes mellitus type II, controlled Start:01-Sep-2019 Instruction Type:Patient Education How to access health informa tion online - Detail Indication:Diabetes mellitus type II, controlled Start:01-Sep-2019 Instruction Type:Patient Education Patient Instructions Indication:Diabetes mellitus type II, controlled Start:01-Sep-2019 Instruction Type:Provider Instructions for Treatment How to access health informa tion online Indication:Diabetes mellitus type II, controlled Start:29-Apr-2019 Instruction Type:Patient Education How to access health informa tion online - Detail Indication:Diabetes mellitus type II, controlled Start:29-Apr-2019 Instruction Type:Patient Education Patient Instructions Indication:Diabetes mellitus type II, controlled Start:29-Apr-2019 Instruction Type:Provider Instructions for Treatment How to access health informa tion online Indication:BMI 22.0-22.9, adult Start:24-Dec-2018 Instruction Type:Patient Education How to access health informa tion online - Detail Indication:BMI 22.0-22.9, adult Start:24-Dec-2018 Instruction Type:Patient Education Patient Instructions Indication:BMI 22.0-22.9, adult Start:24-Dec-2018 Instruction Type:Provider Instructions for Treatment How to access health informa tion online Indication:Smoker Start:14-May-2018 Instruction Type:Patient Education How to access health informa tion online - Detail Indication:Smoker Start:14-May-2018 Instruction Type:Patient Education Patient Instructions Indication:Smoker Start:14-May-2018 Instruction Type:Provider Instructions for Treatment How to access health informa tion online Indication:Smoker Start:16-Apr-2018 Instruction Type:Patient Education How to access health informa tion online - Detail Indication:Smoker Start:16-Apr-2018 Instruction Type:Patient Education Patient Instructions Indication:Smoker Start:16-Apr-2018 Instruction Type:Provider Instructions for Treatment How to access health informa tion online Indication:Nonsmoker Start:17-Nov-2017 Instruction Type:Patient Education How to access health informa tion online - Detail Indication:Nonsmoker Start:17-Nov-2017 Instruction Type:Patient Education Patient Instructions Indication:Nonsmoker Start:17-Nov-2017 Instruction Type:Provider Instructions for Treatment How to access health informa tion online Indication:Nonsmoker Start:03-Nov-2017 Instruction Type:Patient Education How to access health informa tion online - Detail Indication:Nonsmoker Start:03-Nov-2017 Instruction Type:Patient Education Patient Instructions Indication:Nonsmoker Start:03-Nov-2017 Instruction Type:Provider Instructions for Treatment How to access health informa tion online Indication:BMI 25.0-25.9,adult Start:27-Oct-2017 Instruction Type:Patient Education How to access health informa tion online - Detail Indication:BMI 25.0-25.9,adult Start:27-Oct-2017 Instruction Type:Patient Education Patient Instructions Indication:BMI 25.0-25.9,adult Start:27-Oct-2017 Instruction Type:Provider Instructions for Treatment How to access health informa tion online Indication:BMI 25.0-25.9,adult Start:06-Mar-2017 Instruction Type:Patient Education How to access health informa tion online - Detail Indication:BMI 25.0-25.9,adult Start:06-Mar-2017 Instruction Type:Patient Education Patient Instructions Indication:BMI 25.0-25.9,adult Start:06-Mar-2017 Instruction Type:Provider Instructions for Treatment How to access health informa tion online Indication:Nasal congestion Start:09-Oct-2016 Instruction Type:Patient Education How to access health informa tion online - Detail Indication:Nasal congestion Start:09-Oct-2016 Instruction Type:Patient Education Patient Instructions Indication:Nasal congestion Start:09-Oct-2016 Instruction Type:Provider Instructions for Treatment How to access health informa tion online Indication:Need for prophylactic vaccination and inoculation against influenza Start:26-Mar-2016 Instruction Type:Patient Education How to access health informa tion online - Detail Indication:Need for prophylactic vaccination and inoculation against influenza Start:26-Mar-2016 Instruction Type:Patient Education Patient Instructions Indication:Need for prophylactic vaccination and inoculation against influenza Start:26-Mar-2016 Instruction Type:Provider Instructions for Treatment How to access health informa tion online - Detail Indication:Elevated fasting glucose Start:21-Jun-2015 Instruction Type:Patient Education Patient Instructions Indication:Elevated fasting glucose Start:21-Jun-2015 Instruction Type:Provider Instructions for Treatment How to access health informa tion online Indication:Annual physical exam Start:29-Dec-2014 Instruction Type:Patient Education How to access health informa tion online - Detail Indication:Annual physical exam Start:29-Dec-2014 Instruction Type:Patient Education Patient Instructions Indication:Annual physical exam Start:29-Dec-2014 Instruction Type:Provider Instructions for Treatment Patient Instructions Indication:Vertigo Start:14-Nov-2014 Instruction Type:Provider Instructions for Treatment Patient Instructions Indication:Cough Start:25-Aug-2014 Instruction Type:Provider Instructions for Treatment Patient Instructions Indication:Dysthymic Start:04-Jul-2014 Instruction Type:Provider Instructions for Treatment Patient Instructions Indication:Dysthymic Start:29-Sep-2013 Instruction Type:Provider Instructions for Treatment Name Dates Details How to Access Health Informa tion Online using Patient Portal and [email or web address] Apps Indication:Nonsmoker Start:15-Jun-2020 Instruction Type:Patient Education Patient Instructions Indication:Nonsmoker Start:15-Jun-2020 Instruction Type:Provider Instructions for Treatment How to access health informa tion online Indication:BMI 24.0-24.9, adult Start:23-Mar-2020 Instruction Type:Patient Education How to access health informa tion online - Detail Indication:BMI 24.0-24.9, adult Start:23-Mar-2020 Instruction Type:Patient Education Patient Instructions Indication:BMI 24.0-24.9, adult Start:23-Mar-2020 Instruction Type:Provider Instructions for Treatment How to access health informa tion online Indication:Diabetes mellitus type II, controlled Start:08-Dec-2019 Instruction Type:Patient Education How to access health informa tion online - Detail Indication:Diabetes mellitus type II, controlled Start:08-Dec-2019 Instruction Type:Patient Education Patient Instructions Indication:Diabetes mellitus type II, controlled Start:08-Dec-2019 Instruction Type:Provider Instructions for Treatment How to access health informa tion online Indication:Diabetes mellitus type II, controlled Start:01-Sep-2019 Instruction Type:Patient Education How to access health informa tion online - Detail Indication:Diabetes mellitus type II, controlled Start:01-Sep-2019 Instruction Type:Patient Education Patient Instructions Indication:Diabetes mellitus type II, controlled Start:01-Sep-2019 Instruction Type:Provider Instructions for Treatment How to access health informa tion online Indication:Diabetes mellitus type II, controlled Start:29-Apr-2019 Instruction Type:Patient Education How to access health informa tion online - Detail Indication:Diabetes mellitus type II, controlled Start:29-Apr-2019 Instruction Type:Patient Education Patient Instructions Indication:Diabetes mellitus type II, controlled Start:29-Apr-2019 Instruction Type:Provider Instructions for Treatment How to access health informa tion online Indication:BMI 22.0-22.9, adult Start:24-Dec-2018 Instruction Type:Patient Education How to access health informa tion online - Detail Indication:BMI 22.0-22.9, adult Start:24-Dec-2018 Instruction Type:Patient Education Patient Instructions Indication:BMI 22.0-22.9, adult Start:24-Dec-2018 Instruction Type:Provider Instructions for Treatment How to access health informa tion online Indication:Smoker Start:14-May-2018 Instruction Type:Patient Education How to access health informa tion online - Detail Indication:Smoker Start:14-May-2018 Instruction Type:Patient Education Patient Instructions Indication:Smoker Start:14-May-2018 Instruction Type:Provider Instructions for Treatment How to access health informa tion online Indication:Smoker Start:16-Apr-2018 Instruction Type:Patient Education How to access health informa tion online - Detail Indication:Smoker Start:16-Apr-2018 Instruction Type:Patient Education Patient Instructions Indication:Smoker Start:16-Apr-2018 Instruction Type:Provider Instructions for Treatment How to access health informa tion online Indication:Nonsmoker Start:17-Nov-2017 Instruction Type:Patient Education How to access health informa tion online - Detail Indication:Nonsmoker Start:17-Nov-2017 Instruction Type:Patient Education Patient Instructions Indication:Nonsmoker Start:17-Nov-2017 Instruction Type:Provider Instructions for Treatment How to access health informa tion online Indication:Nonsmoker Start:03-Nov-2017 Instruction Type:Patient Education How to access health informa tion online - Detail Indication:Nonsmoker Start:03-Nov-2017 Instruction Type:Patient Education Patient Instructions Indication:Nonsmoker Start:03-Nov-2017 Instruction Type:Provider Instructions for Treatment How to access health informa tion online Indication:BMI 25.0-25.9,adult Start:27-Oct-2017 Instruction Type:Patient Education How to access health informa tion online - Detail Indication:BMI 25.0-25.9,adult Start:27-Oct-2017 Instruction Type:Patient Education Patient Instructions Indication:BMI 25.0-25.9,adult Start:27-Oct-2017 Instruction Type:Provider Instructions for Treatment How to access health informa tion online Indication:BMI 25.0-25.9,adult Start:06-Mar-2017 Instruction Type:Patient Education How to access health informa tion online - Detail Indication:BMI 25.0-25.9,adult Start:06-Mar-2017 Instruction Type:Patient Education Patient Instructions Indication:BMI 25.0-25.9,adult Start:06-Mar-2017 Instruction Type:Provider Instructions for Treatment How to access health informa tion online Indication:Nasal congestion Start:09-Oct-2016 Instruction Type:Patient Education How to access health informa tion online - Detail Indication:Nasal congestion Start:09-Oct-2016 Instruction Type:Patient Education Patient Instructions Indication:Nasal congestion Start:09-Oct-2016 Instruction Type:Provider Instructions for Treatment How to access health informa tion online Indication:Need for prophylactic vaccination and inoculation against influenza Start:26-Mar-2016 Instruction Type:Patient Education How to access health informa tion online - Detail Indication:Need for prophylactic vaccination and inoculation against influenza Start:26-Mar-2016 Instruction Type:Patient Education Patient Instructions Indication:Need for prophylactic vaccination and inoculation against influenza Start:26-Mar-2016 Instruction Type:Provider Instructions for Treatment How to access health informa tion online - Detail Indication:Elevated fasting glucose Start:21-Jun-2015 Instruction Type:Patient Education Patient Instructions Indication:Elevated fasting glucose Start:21-Jun-2015 Instruction Type:Provider Instructions for Treatment How to access health informa tion online Indication:Annual physical exam Start:29-Dec-2014 Instruction Type:Patient Education How to access health informa tion online - Detail Indication:Annual physical exam Start:29-Dec-2014 Instruction Type:Patient Education Patient Instructions Indication:Annual physical exam Start:29-Dec-2014 Instruction Type:Provider Instructions for Treatment Patient Instructions Indication:Vertigo Start:14-Nov-2014 Instruction Type:Provider Instructions for Treatment Patient Instructions Indication:Cough Start:25-Aug-2014 Instruction Type:Provider Instructions for Treatment Patient Instructions Indication:Dysthymic Start:04-Jul-2014 Instruction Type:Provider Instructions for Treatment Patient Instructions Indication:Dysthymic Start:29-Sep-2013 Instruction Type:Provider Instructions for Treatment Name Dates Details How to Access Health Informa tion Online using Patient Portal and [employer] Apps Indication:Nonsmoker Start:21-Jun-2020 Instruction Type:Patient Education Patient Instructions Indication:Nonsmoker Start:21-Jun-2020 Instruction Type:Provider Instructions for Treatment How to Access Health Informa tion Online using Patient Portal and [employer] Apps Indication:Nonsmoker Start:15-Jun-2020 Instruction Type:Patient Education Patient Instructions Indication:Nonsmoker Start:15-Jun-2020 Instruction Type:Provider Instructions for Treatment How to access health informa tion online Indication:BMI 24.0-24.9, adult Start:23-Mar-2020 Instruction Type:Patient Education How to access health informa tion online - Detail Indication:BMI 24.0-24.9, adult Start:23-Mar-2020 Instruction Type:Patient Education Patient Instructions Indication:BMI 24.0-24.9, adult Start:23-Mar-2020 Instruction Type:Provider Instructions for Treatment How to access health informa tion online Indication:Diabetes mellitus type II, controlled Start:08-Dec-2019 Instruction Type:Patient Education How to access health informa tion online - Detail Indication:Diabetes mellitus type II, controlled Start:08-Dec-2019 Instruction Type:Patient Education Patient Instructions Indication:Diabetes mellitus type II, controlled Start:08-Dec-2019 Instruction Type:Provider Instructions for Treatment How to access health informa tion online Indication:Diabetes mellitus type II, controlled Start:01-Sep-2019 Instruction Type:Patient Education How to access health informa tion online - Detail Indication:Diabetes mellitus type II, controlled Start:01-Sep-2019 Instruction Type:Patient Education Patient Instructions Indication:Diabetes mellitus type II, controlled Start:01-Sep-2019 Instruction Type:Provider Instructions for Treatment How to access health informa tion online Indication:Diabetes mellitus type II, controlled Start:29-Apr-2019 Instruction Type:Patient Education How to access health informa tion online - Detail Indication:Diabetes mellitus type II, controlled Start:29-Apr-2019 Instruction Type:Patient Education Patient Instructions Indication:Diabetes mellitus type II, controlled Start:29-Apr-2019 Instruction Type:Provider Instructions for Treatment How to access health informa tion online Indication:BMI 22.0-22.9, adult Start:24-Dec-2018 Instruction Type:Patient Education How to access health informa tion online - Detail Indication:BMI 22.0-22.9, adult Start:24-Dec-2018 Instruction Type:Patient Education Patient Instructions Indication:BMI 22.0-22.9, adult Start:24-Dec-2018 Instruction Type:Provider Instructions for Treatment How to access health informa tion online Indication:Smoker Start:14-May-2018 Instruction Type:Patient Education How to access health informa tion online - Detail Indication:Smoker Start:14-May-2018 Instruction Type:Patient Education Patient Instructions Indication:Smoker Start:14-May-2018 Instruction Type:Provider Instructions for Treatment How to access health informa tion online Indication:Smoker Start:16-Apr-2018 Instruction Type:Patient Education How to access health informa tion online - Detail Indication:Smoker Start:16-Apr-2018 Instruction Type:Patient Education Patient Instructions Indication:Smoker Start:16-Apr-2018 Instruction Type:Provider Instructions for Treatment How to access health informa tion online Indication:Nonsmoker Start:17-Nov-2017 Instruction Type:Patient Education How to access health informa tion online - Detail Indication:Nonsmoker Start:17-Nov-2017 Instruction Type:Patient Education Patient Instructions Indication:Nonsmoker Start:17-Nov-2017 Instruction Type:Provider Instructions for Treatment How to access health informa tion online Indication:Nonsmoker Start:03-Nov-2017 Instruction Type:Patient Education How to access health informa tion online - Detail Indication:Nonsmoker Start:03-Nov-2017 Instruction Type:Patient Education Patient Instructions Indication:Nonsmoker Start:03-Nov-2017 Instruction Type:Provider Instructions for Treatment How to access health informa tion online Indication:BMI 25.0-25.9,adult Start:27-Oct-2017 Instruction Type:Patient Education How to access health informa tion online - Detail Indication:BMI 25.0-25.9,adult Start:27-Oct-2017 Instruction Type:Patient Education Patient Instructions Indication:BMI 25.0-25.9,adult Start:27-Oct-2017 Instruction Type:Provider Instructions for Treatment How to access health informa tion online Indication:BMI 25.0-25.9,adult Start:06-Mar-2017 Instruction Type:Patient Education How to access health informa tion online - Detail Indication:BMI 25.0-25.9,adult Start:06-Mar-2017 Instruction Type:Patient Education Patient Instructions Indication:BMI 25.0-25.9,adult Start:06-Mar-2017 Instruction Type:Provider Instructions for Treatment How to access health informa tion online Indication:Nasal congestion Start:09-Oct-2016 Instruction Type:Patient Education How to access health informa tion online - Detail Indication:Nasal congestion Start:09-Oct-2016 Instruction Type:Patient Education Patient Instructions Indication:Nasal congestion Start:09-Oct-2016 Instruction Type:Provider Instructions for Treatment How to access health informa tion online Indication:Need for prophylactic vaccination and inoculation against influenza Start:26-Mar-2016 Instruction Type:Patient Education How to access health informa tion online - Detail Indication:Need for prophylactic vaccination and inoculation against influenza Start:26-Mar-2016 Instruction Type:Patient Education Patient Instructions Indication:Need for prophylactic vaccination and inoculation against influenza Start:26-Mar-2016 Instruction Type:Provider Instructions for Treatment How to access health informa tion online - Detail Indication:Elevated fasting glucose Start:21-Jun-2015 Instruction Type:Patient Education Patient Instructions Indication:Elevated fasting glucose Start:21-Jun-2015 Instruction Type:Provider Instructions for Treatment How to access health informa tion online Indication:Annual physical exam Start:29-Dec-2014 Instruction Type:Patient Education How to access health informa tion online - Detail Indication:Annual physical exam Start:29-Dec-2014 Instruction Type:Patient Education Patient Instructions Indication:Annual physical exam Start:29-Dec-2014 Instruction Type:Provider Instructions for Treatment Patient Instructions Indication:Vertigo Start:14-Nov-2014 Instruction Type:Provider Instructions for Treatment Patient Instructions Indication:Cough Start:25-Aug-2014 Instruction Type:Provider Instructions for Treatment Patient Instructions Indication:Dysthymic Start:04-Jul-2014 Instruction Type:Provider Instructions for Treatment Patient Instructions Indication:Dysthymic Start:29-Sep-2013 Instruction Type:Provider Instructions for Treatment Name Dates Details How to Access Health Informa tion Online using Patient Portal and [employer] Apps Indication:Nonsmoker Start:21-Jun-2020 Instruction Type:Patient Education Patient Instructions Indication:Nonsmoker Start:21-Jun-2020 Instruction Type:Provider Instructions for Treatment How to Access Health Informa tion Online using Patient Portal and [employer] Apps Indication:Nonsmoker Start:15-Jun-2020 Instruction Type:Patient Education Patient Instructions Indication:Nonsmoker Start:15-Jun-2020 Instruction Type:Provider Instructions for Treatment How to access health informa tion online Indication:BMI 24.0-24.9, adult Start:23-Mar-2020 Instruction Type:Patient Education How to access health informa tion online - Detail Indication:BMI 24.0-24.9, adult Start:23-Mar-2020 Instruction Type:Patient Education Patient Instructions Indication:BMI 24.0-24.9, adult Start:23-Mar-2020 Instruction Type:Provider Instructions for Treatment How to access health informa tion online Indication:Diabetes mellitus type II, controlled Start:08-Dec-2019 Instruction Type:Patient Education How to access health informa tion online - Detail Indication:Diabetes mellitus type II, controlled Start:08-Dec-2019 Instruction Type:Patient Education Patient Instructions Indication:Diabetes mellitus type II, controlled Start:08-Dec-2019 Instruction Type:Provider Instructions for Treatment How to access health informa tion online Indication:Diabetes mellitus type II, controlled Start:01-Sep-2019 Instruction Type:Patient Education How to access health informa tion online - Detail Indication:Diabetes mellitus type II, controlled Start:01-Sep-2019 Instruction Type:Patient Education Patient Instructions Indication:Diabetes mellitus type II, controlled Start:01-Sep-2019 Instruction Type:Provider Instructions for Treatment How to access health informa tion online Indication:Diabetes mellitus type II, controlled Start:29-Apr-2019 Instruction Type:Patient Education How to access health informa tion online - Detail Indication:Diabetes mellitus type II, controlled Start:29-Apr-2019 Instruction Type:Patient Education Patient Instructions Indication:Diabetes mellitus type II, controlled Start:29-Apr-2019 Instruction Type:Provider Instructions for Treatment How to access health informa tion online Indication:BMI 22.0-22.9, adult Start:24-Dec-2018 Instruction Type:Patient Education How to access health informa tion online - Detail Indication:BMI 22.0-22.9, adult Start:24-Dec-2018 Instruction Type:Patient Education Patient Instructions Indication:BMI 22.0-22.9, adult Start:24-Dec-2018 Instruction Type:Provider Instructions for Treatment How to access health informa tion online Indication:Smoker Start:14-May-2018 Instruction Type:Patient Education How to access health informa tion online - Detail Indication:Smoker Start:14-May-2018 Instruction Type:Patient Education Patient Instructions Indication:Smoker Start:14-May-2018 Instruction Type:Provider Instructions for Treatment How to access health informa tion online Indication:Smoker Start:16-Apr-2018 Instruction Type:Patient Education How to access health informa tion online - Detail Indication:Smoker Start:16-Apr-2018 Instruction Type:Patient Education Patient Instructions Indication:Smoker Start:16-Apr-2018 Instruction Type:Provider Instructions for Treatment How to access health informa tion online Indication:Nonsmoker Start:17-Nov-2017 Instruction Type:Patient Education How to access health informa tion online - Detail Indication:Nonsmoker Start:17-Nov-2017 Instruction Type:Patient Education Patient Instructions Indication:Nonsmoker Start:17-Nov-2017 Instruction Type:Provider Instructions for Treatment How to access health informa tion online Indication:Nonsmoker Start:03-Nov-2017 Instruction Type:Patient Education How to access health informa tion online - Detail Indication:Nonsmoker Start:03-Nov-2017 Instruction Type:Patient Education Patient Instructions Indication:Nonsmoker Start:03-Nov-2017 Instruction Type:Provider Instructions for Treatment How to access health informa tion online Indication:BMI 25.0-25.9,adult Start:27-Oct-2017 Instruction Type:Patient Education How to access health informa tion online - Detail Indication:BMI 25.0-25.9,adult Start:27-Oct-2017 Instruction Type:Patient Education Patient Instructions Indication:BMI 25.0-25.9,adult Start:27-Oct-2017 Instruction Type:Provider Instructions for Treatment How to access health informa tion online Indication:BMI 25.0-25.9,adult Start:06-Mar-2017 Instruction Type:Patient Education How to access health informa tion online - Detail Indication:BMI 25.0-25.9,adult Start:06-Mar-2017 Instruction Type:Patient Education Patient Instructions Indication:BMI 25.0-25.9,adult Start:06-Mar-2017 Instruction Type:Provider Instructions for Treatment How to access health informa tion online Indication:Nasal congestion Start:09-Oct-2016 Instruction Type:Patient Education How to access health informa tion online - Detail Indication:Nasal congestion Start:09-Oct-2016 Instruction Type:Patient Education Patient Instructions Indication:Nasal congestion Start:09-Oct-2016 Instruction Type:Provider Instructions for Treatment How to access health informa tion online Indication:Need for prophylactic vaccination and inoculation against influenza Start:26-Mar-2016 Instruction Type:Patient Education How to access health informa tion online - Detail Indication:Need for prophylactic vaccination and inoculation against influenza Start:26-Mar-2016 Instruction Type:Patient Education Patient Instructions Indication:Need for prophylactic vaccination and inoculation against influenza Start:26-Mar-2016 Instruction Type:Provider Instructions for Treatment How to access health informa tion online - Detail Indication:Elevated fasting glucose Start:21-Jun-2015 Instruction Type:Patient Education Patient Instructions Indication:Elevated fasting glucose Start:21-Jun-2015 Instruction Type:Provider Instructions for Treatment How to access health informa tion online Indication:Annual physical exam Start:29-Dec-2014 Instruction Type:Patient Education How to access health informa tion online - Detail Indication:Annual physical exam Start:29-Dec-2014 Instruction Type:Patient Education Patient Instructions Indication:Annual physical exam Start:29-Dec-2014 Instruction Type:Provider Instructions for Treatment Patient Instructions Indication:Vertigo Start:14-Nov-2014 Instruction Type:Provider Instructions for Treatment Patient Instructions Indication:Cough Start:25-Aug-2014 Instruction Type:Provider Instructions for Treatment Patient Instructions Indication:Dysthymic Start:04-Jul-2014 Instruction Type:Provider Instructions for Treatment Patient Instructions Indication:Dysthymic Start:29-Sep-2013 Instruction Type:Provider Instructions for Treatment Name Dates Details How to Access Health Informa tion Online using Patient Portal and [employer]rd [employer] Apps Indication:Nonsmoker Start:21-Jun-2020 Instruction Type:Patient Education Patient Instructions Indication:Nonsmoker Start:21-Jun-2020 Instruction Type:Provider Instructions for Treatment How to Access Health Informa tion Online using Patient Portal and [employer]rd [employer] Apps Indication:Nonsmoker Start:15-Jun-2020 Instruction Type:Patient Education Patient Instructions Indication:Nonsmoker Start:15-Jun-2020 Instruction Type:Provider Instructions for Treatment How to access health informa tion online Indication:BMI 24.0-24.9, adult Start:23-Mar-2020 Instruction Type:Patient Education How to access health informa tion online - Detail Indication:BMI 24.0-24.9, adult Start:23-Mar-2020 Instruction Type:Patient Education Patient Instructions Indication:BMI 24.0-24.9, adult Start:23-Mar-2020 Instruction Type:Provider Instructions for Treatment How to access health informa tion online Indication:Diabetes mellitus type II, controlled Start:08-Dec-2019 Instruction Type:Patient Education How to access health informa tion online - Detail Indication:Diabetes mellitus type II, controlled Start:08-Dec-2019 Instruction Type:Patient Education Patient Instructions Indication:Diabetes mellitus type II, controlled Start:08-Dec-2019 Instruction Type:Provider Instructions for Treatment How to access health informa tion online Indication:Diabetes mellitus type II, controlled Start:01-Sep-2019 Instruction Type:Patient Education How to access health informa tion online - Detail Indication:Diabetes mellitus type II, controlled Start:01-Sep-2019 Instruction Type:Patient Education Patient Instructions Indication:Diabetes mellitus type II, controlled Start:01-Sep-2019 Instruction Type:Provider Instructions for Treatment How to access health informa tion online Indication:Diabetes mellitus type II, controlled Start:29-Apr-2019 Instruction Type:Patient Education How to access health informa tion online - Detail Indication:Diabetes mellitus type II, controlled Start:29-Apr-2019 Instruction Type:Patient Education Patient Instructions Indication:Diabetes mellitus type II, controlled Start:29-Apr-2019 Instruction Type:Provider Instructions for Treatment How to access health informa tion online Indication:BMI 22.0-22.9, adult Start:24-Dec-2018 Instruction Type:Patient Education How to access health informa tion online - Detail Indication:BMI 22.0-22.9, adult Start:24-Dec-2018 Instruction Type:Patient Education Patient Instructions Indication:BMI 22.0-22.9, adult Start:24-Dec-2018 Instruction Type:Provider Instructions for Treatment How to access health informa tion online Indication:Smoker Start:14-May-2018 Instruction Type:Patient Education How to access health informa tion online - Detail Indication:Smoker Start:14-May-2018 Instruction Type:Patient Education Patient Instructions Indication:Smoker Start:14-May-2018 Instruction Type:Provider Instructions for Treatment How to access health informa tion online Indication:Smoker Start:16-Apr-2018 Instruction Type:Patient Education How to access health informa tion online - Detail Indication:Smoker Start:16-Apr-2018 Instruction Type:Patient Education Patient Instructions Indication:Smoker Start:16-Apr-2018 Instruction Type:Provider Instructions for Treatment How to access health informa tion online Indication:Nonsmoker Start:17-Nov-2017 Instruction Type:Patient Education How to access health informa tion online - Detail Indication:Nonsmoker Start:17-Nov-2017 Instruction Type:Patient Education Patient Instructions Indication:Nonsmoker Start:17-Nov-2017 Instruction Type:Provider Instructions for Treatment How to access health informa tion online Indication:Nonsmoker Start:03-Nov-2017 Instruction Type:Patient Education How to access health informa tion online - Detail Indication:Nonsmoker Start:03-Nov-2017 Instruction Type:Patient Education Patient Instructions Indication:Nonsmoker Start:03-Nov-2017 Instruction Type:Provider Instructions for Treatment How to access health informa tion online Indication:BMI 25.0-25.9,adult Start:27-Oct-2017 Instruction Type:Patient Education How to access health informa tion online - Detail Indication:BMI 25.0-25.9,adult Start:27-Oct-2017 Instruction Type:Patient Education Patient Instructions Indication:BMI 25.0-25.9,adult Start:27-Oct-2017 Instruction Type:Provider Instructions for Treatment How to access health informa tion online Indication:BMI 25.0-25.9,adult Start:06-Mar-2017 Instruction Type:Patient Education How to access health informa tion online - Detail Indication:BMI 25.0-25.9,adult Start:06-Mar-2017 Instruction Type:Patient Education Patient Instructions Indication:BMI 25.0-25.9,adult Start:06-Mar-2017 Instruction Type:Provider Instructions for Treatment How to access health informa tion online Indication:Nasal congestion Start:09-Oct-2016 Instruction Type:Patient Education How to access health informa tion online - Detail Indication:Nasal congestion Start:09-Oct-2016 Instruction Type:Patient Education Patient Instructions Indication:Nasal congestion Start:09-Oct-2016 Instruction Type:Provider Instructions for Treatment How to access health informa tion online Indication:Need for prophylactic vaccination and inoculation against influenza Start:26-Mar-2016 Instruction Type:Patient Education How to access health informa tion online - Detail Indication:Need for prophylactic vaccination and inoculation against influenza Start:26-Mar-2016 Instruction Type:Patient Education Patient Instructions Indication:Need for prophylactic vaccination and inoculation against influenza Start:26-Mar-2016 Instruction Type:Provider Instructions for Treatment How to access health informa tion online - Detail Indication:Elevated fasting glucose Start:21-Jun-2015 Instruction Type:Patient Education Patient Instructions Indication:Elevated fasting glucose Start:21-Jun-2015 Instruction Type:Provider Instructions for Treatment How to access health informa tion online Indication:Annual physical exam Start:29-Dec-2014 Instruction Type:Patient Education How to access health informa tion online - Detail Indication:Annual physical exam Start:29-Dec-2014 Instruction Type:Patient Education Patient Instructions Indication:Annual physical exam Start:29-Dec-2014 Instruction Type:Provider Instructions for Treatment Patient Instructions Indication:Vertigo Start:14-Nov-2014 Instruction Type:Provider Instructions for Treatment Patient Instructions Indication:Cough Start:25-Aug-2014 Instruction Type:Provider Instructions for Treatment Patient Instructions Indication:Dysthymic Start:04-Jul-2014 Instruction Type:Provider Instructions for Treatment Patient Instructions Indication:Dysthymic Start:29-Sep-2013 Instruction Type:Provider Instructions for Treatment Name Dates Details How to Access Health Informa tion Online using Patient Portal and [employer] Apps Indication:Nonsmoker Start:21-Jun-2020 Instruction Type:Patient Education Patient Instructions Indication:Nonsmoker Start:21-Jun-2020 Instruction Type:Provider Instructions for Treatment How to Access Health Informa tion Online using Patient Portal and [employer] Apps Indication:Nonsmoker Start:15-Jun-2020 Instruction Type:Patient Education Patient Instructions Indication:Nonsmoker Start:15-Jun-2020 Instruction Type:Provider Instructions for Treatment How to access health informa tion online Indication:BMI 24.0-24.9, adult Start:23-Mar-2020 Instruction Type:Patient Education How to access health informa tion online - Detail Indication:BMI 24.0-24.9, adult Start:23-Mar-2020 Instruction Type:Patient Education Patient Instructions Indication:BMI 24.0-24.9, adult Start:23-Mar-2020 Instruction Type:Provider Instructions for Treatment How to access health informa tion online Indication:Diabetes mellitus type II, controlled Start:08-Dec-2019 Instruction Type:Patient Education How to access health informa tion online - Detail Indication:Diabetes mellitus type II, controlled Start:08-Dec-2019 Instruction Type:Patient Education Patient Instructions Indication:Diabetes mellitus type II, controlled Start:08-Dec-2019 Instruction Type:Provider Instructions for Treatment How to access health informa tion online Indication:Diabetes mellitus type II, controlled Start:01-Sep-2019 Instruction Type:Patient Education How to access health informa tion online - Detail Indication:Diabetes mellitus type II, controlled Start:01-Sep-2019 Instruction Type:Patient Education Patient Instructions Indication:Diabetes mellitus type II, controlled Start:01-Sep-2019 Instruction Type:Provider Instructions for Treatment How to access health informa tion online Indication:Diabetes mellitus type II, controlled Start:29-Apr-2019 Instruction Type:Patient Education How to access health informa tion online - Detail Indication:Diabetes mellitus type II, controlled Start:29-Apr-2019 Instruction Type:Patient Education Patient Instructions Indication:Diabetes mellitus type II, controlled Start:29-Apr-2019 Instruction Type:Provider Instructions for Treatment How to access health informa tion online Indication:BMI 22.0-22.9, adult Start:24-Dec-2018 Instruction Type:Patient Education How to access health informa tion online - Detail Indication:BMI 22.0-22.9, adult Start:24-Dec-2018 Instruction Type:Patient Education Patient Instructions Indication:BMI 22.0-22.9, adult Start:24-Dec-2018 Instruction Type:Provider Instructions for Treatment How to access health informa tion online Indication:Smoker Start:14-May-2018 Instruction Type:Patient Education How to access health informa tion online - Detail Indication:Smoker Start:14-May-2018 Instruction Type:Patient Education Patient Instructions Indication:Smoker Start:14-May-2018 Instruction Type:Provider Instructions for Treatment How to access health informa tion online Indication:Smoker Start:16-Apr-2018 Instruction Type:Patient Education How to access health informa tion online - Detail Indication:Smoker Start:16-Apr-2018 Instruction Type:Patient Education Patient Instructions Indication:Smoker Start:16-Apr-2018 Instruction Type:Provider Instructions for Treatment How to access health informa tion online Indication:Nonsmoker Start:17-Nov-2017 Instruction Type:Patient Education How to access health informa tion online - Detail Indication:Nonsmoker Start:17-Nov-2017 Instruction Type:Patient Education Patient Instructions Indication:Nonsmoker Start:17-Nov-2017 Instruction Type:Provider Instructions for Treatment How to access health informa tion online Indication:Nonsmoker Start:03-Nov-2017 Instruction Type:Patient Education How to access health informa tion online - Detail Indication:Nonsmoker Start:03-Nov-2017 Instruction Type:Patient Education Patient Instructions Indication:Nonsmoker Start:03-Nov-2017 Instruction Type:Provider Instructions for Treatment How to access health informa tion online Indication:BMI 25.0-25.9,adult Start:27-Oct-2017 Instruction Type:Patient Education How to access health informa tion online - Detail Indication:BMI 25.0-25.9,adult Start:27-Oct-2017 Instruction Type:Patient Education Patient Instructions Indication:BMI 25.0-25.9,adult Start:27-Oct-2017 Instruction Type:Provider Instructions for Treatment How to access health informa tion online Indication:BMI 25.0-25.9,adult Start:06-Mar-2017 Instruction Type:Patient Education How to access health informa tion online - Detail Indication:BMI 25.0-25.9,adult Start:06-Mar-2017 Instruction Type:Patient Education Patient Instructions Indication:BMI 25.0-25.9,adult Start:06-Mar-2017 Instruction Type:Provider Instructions for Treatment How to access health informa tion online Indication:Nasal congestion Start:09-Oct-2016 Instruction Type:Patient Education How to access health informa tion online - Detail Indication:Nasal congestion Start:09-Oct-2016 Instruction Type:Patient Education Patient Instructions Indication:Nasal congestion Start:09-Oct-2016 Instruction Type:Provider Instructions for Treatment How to access health informa tion online Indication:Need for prophylactic vaccination and inoculation against influenza Start:26-Mar-2016 Instruction Type:Patient Education How to access health informa tion online - Detail Indication:Need for prophylactic vaccination and inoculation against influenza Start:26-Mar-2016 Instruction Type:Patient Education Patient Instructions Indication:Need for prophylactic vaccination and inoculation against influenza Start:26-Mar-2016 Instruction Type:Provider Instructions for Treatment How to access health informa tion online - Detail Indication:Elevated fasting glucose Start:21-Jun-2015 Instruction Type:Patient Education Patient Instructions Indication:Elevated fasting glucose Start:21-Jun-2015 Instruction Type:Provider Instructions for Treatment How to access health informa tion online Indication:Annual physical exam Start:29-Dec-2014 Instruction Type:Patient Education How to access health informa tion online - Detail Indication:Annual physical exam Start:29-Dec-2014 Instruction Type:Patient Education Patient Instructions Indication:Annual physical exam Start:29-Dec-2014 Instruction Type:Provider Instructions for Treatment Patient Instructions Indication:Vertigo Start:14-Nov-2014 Instruction Type:Provider Instructions for Treatment Patient Instructions Indication:Cough Start:25-Aug-2014 Instruction Type:Provider Instructions for Treatment Patient Instructions Indication:Dysthymic Start:04-Jul-2014 Instruction Type:Provider Instructions for Treatment Patient Instructions Indication:Dysthymic Start:29-Sep-2013 Instruction Type:Provider Instructions for Treatment Name Dates Details How to Access Health Informa tion Online using Patient Portal and [employer] Apps Indication:Nonsmoker Start:21-Jun-2020 Instruction Type:Patient Education Patient Instructions Indication:Nonsmoker Start:21-Jun-2020 Instruction Type:Provider Instructions for Treatment How to Access Health Informa tion Online using Patient Portal and [employer] Apps Indication:Nonsmoker Start:15-Jun-2020 Instruction Type:Patient Education Patient Instructions Indication:Nonsmoker Start:15-Jun-2020 Instruction Type:Provider Instructions for Treatment How to access health informa tion online Indication:BMI 24.0-24.9, adult Start:23-Mar-2020 Instruction Type:Patient Education How to access health informa tion online - Detail Indication:BMI 24.0-24.9, adult Start:23-Mar-2020 Instruction Type:Patient Education Patient Instructions Indication:BMI 24.0-24.9, adult Start:23-Mar-2020 Instruction Type:Provider Instructions for Treatment How to access health informa tion online Indication:Diabetes mellitus type II, controlled Start:08-Dec-2019 Instruction Type:Patient Education How to access health informa tion online - Detail Indication:Diabetes mellitus type II, controlled Start:08-Dec-2019 Instruction Type:Patient Education Patient Instructions Indication:Diabetes mellitus type II, controlled Start:08-Dec-2019 Instruction Type:Provider Instructions for Treatment How to access health informa tion online Indication:Diabetes mellitus type II, controlled Start:01-Sep-2019 Instruction Type:Patient Education How to access health informa tion online - Detail Indication:Diabetes mellitus type II, controlled Start:01-Sep-2019 Instruction Type:Patient Education Patient Instructions Indication:Diabetes mellitus type II, controlled Start:01-Sep-2019 Instruction Type:Provider Instructions for Treatment How to access health informa tion online Indication:Diabetes mellitus type II, controlled Start:29-Apr-2019 Instruction Type:Patient Education How to access health informa tion online - Detail Indication:Diabetes mellitus type II, controlled Start:29-Apr-2019 Instruction Type:Patient Education Patient Instructions Indication:Diabetes mellitus type II, controlled Start:29-Apr-2019 Instruction Type:Provider Instructions for Treatment How to access health informa tion online Indication:BMI 22.0-22.9, adult Start:24-Dec-2018 Instruction Type:Patient Education How to access health informa tion online - Detail Indication:BMI 22.0-22.9, adult Start:24-Dec-2018 Instruction Type:Patient Education Patient Instructions Indication:BMI 22.0-22.9, adult Start:24-Dec-2018 Instruction Type:Provider Instructions for Treatment How to access health informa tion online Indication:Smoker Start:14-May-2018 Instruction Type:Patient Education How to access health informa tion online - Detail Indication:Smoker Start:14-May-2018 Instruction Type:Patient Education Patient Instructions Indication:Smoker Start:14-May-2018 Instruction Type:Provider Instructions for Treatment How to access health informa tion online Indication:Smoker Start:16-Apr-2018 Instruction Type:Patient Education How to access health informa tion online - Detail Indication:Smoker Start:16-Apr-2018 Instruction Type:Patient Education Patient Instructions Indication:Smoker Start:16-Apr-2018 Instruction Type:Provider Instructions for Treatment How to access health informa tion online Indication:Nonsmoker Start:17-Nov-2017 Instruction Type:Patient Education How to access health informa tion online - Detail Indication:Nonsmoker Start:17-Nov-2017 Instruction Type:Patient Education Patient Instructions Indication:Nonsmoker Start:17-Nov-2017 Instruction Type:Provider Instructions for Treatment How to access health informa tion online Indication:Nonsmoker Start:03-Nov-2017 Instruction Type:Patient Education How to access health informa tion online - Detail Indication:Nonsmoker Start:03-Nov-2017 Instruction Type:Patient Education Patient Instructions Indication:Nonsmoker Start:03-Nov-2017 Instruction Type:Provider Instructions for Treatment How to access health informa tion online Indication:BMI 25.0-25.9,adult Start:27-Oct-2017 Instruction Type:Patient Education How to access health informa tion online - Detail Indication:BMI 25.0-25.9,adult Start:27-Oct-2017 Instruction Type:Patient Education Patient Instructions Indication:BMI 25.0-25.9,adult Start:27-Oct-2017 Instruction Type:Provider Instructions for Treatment How to access health informa tion online Indication:BMI 25.0-25.9,adult Start:06-Mar-2017 Instruction Type:Patient Education How to access health informa tion online - Detail Indication:BMI 25.0-25.9,adult Start:06-Mar-2017 Instruction Type:Patient Education Patient Instructions Indication:BMI 25.0-25.9,adult Start:06-Mar-2017 Instruction Type:Provider Instructions for Treatment How to access health informa tion online Indication:Nasal congestion Start:09-Oct-2016 Instruction Type:Patient Education How to access health informa tion online - Detail Indication:Nasal congestion Start:09-Oct-2016 Instruction Type:Patient Education Patient Instructions Indication:Nasal congestion Start:09-Oct-2016 Instruction Type:Provider Instructions for Treatment How to access health informa tion online Indication:Need for prophylactic vaccination and inoculation against influenza Start:26-Mar-2016 Instruction Type:Patient Education How to access health informa tion online - Detail Indication:Need for prophylactic vaccination and inoculation against influenza Start:26-Mar-2016 Instruction Type:Patient Education Patient Instructions Indication:Need for prophylactic vaccination and inoculation against influenza Start:26-Mar-2016 Instruction Type:Provider Instructions for Treatment How to access health informa tion online - Detail Indication:Elevated fasting glucose Start:21-Jun-2015 Instruction Type:Patient Education Patient Instructions Indication:Elevated fasting glucose Start:21-Jun-2015 Instruction Type:Provider Instructions for Treatment How to access health informa tion online Indication:Annual physical exam Start:29-Dec-2014 Instruction Type:Patient Education How to access health informa tion online - Detail Indication:Annual physical exam Start:29-Dec-2014 Instruction Type:Patient Education Patient Instructions Indication:Annual physical exam Start:29-Dec-2014 Instruction Type:Provider Instructions for Treatment Patient Instructions Indication:Vertigo Start:14-Nov-2014 Instruction Type:Provider Instructions for Treatment Patient Instructions Indication:Cough Start:25-Aug-2014 Instruction Type:Provider Instructions for Treatment Patient Instructions Indication:Dysthymic Start:04-Jul-2014 Instruction Type:Provider Instructions for Treatment Patient Instructions Indication:Dysthymic Start:29-Sep-2013 Instruction Type:Provider Instructions for Treatment Name Dates Details How to Access Health Informa tion Online using Patient Portal and 3rd [employer] Apps Indication:Smoker Start:22-Sep-2020 Instruction Type:Patient Education Patient Instructions Indication:Smoker Start:22-Sep-2020 Instruction Type:Provider Instructions for Treatment How to Access Health Informa tion Online using Patient Portal and 3rd [employer] Apps Indication:Nonsmoker Start:21-Jun-2020 Instruction Type:Patient Education Patient Instructions Indication:Nonsmoker Start:21-Jun-2020 Instruction Type:Provider Instructions for Treatment How to Access Health Informa tion Online using Patient Portal and 3rd [employer] Apps Indication:Nonsmoker Start:15-Jun-2020 Instruction Type:Patient Education Patient Instructions Indication:Nonsmoker Start:15-Jun-2020 Instruction Type:Provider Instructions for Treatment How to access health informa tion online Indication:BMI 24.0-24.9, adult Start:23-Mar-2020 Instruction Type:Patient Education How to access health informa tion online - Detail Indication:BMI 24.0-24.9, adult Start:23-Mar-2020 Instruction Type:Patient Education Patient Instructions Indication:BMI 24.0-24.9, adult Start:23-Mar-2020 Instruction Type:Provider Instructions for Treatment How to access health informa tion online Indication:Diabetes mellitus type II, controlled Start:08-Dec-2019 Instruction Type:Patient Education How to access health informa tion online - Detail Indication:Diabetes mellitus type II, controlled Start:08-Dec-2019 Instruction Type:Patient Education Patient Instructions Indication:Diabetes mellitus type II, controlled Start:08-Dec-2019 Instruction Type:Provider Instructions for Treatment How to access health informa tion online Indication:Diabetes mellitus type II, controlled Start:01-Sep-2019 Instruction Type:Patient Education How to access health informa tion online - Detail Indication:Diabetes mellitus type II, controlled Start:01-Sep-2019 Instruction Type:Patient Education Patient Instructions Indication:Diabetes mellitus type II, controlled Start:01-Sep-2019 Instruction Type:Provider Instructions for Treatment How to access health informa tion online Indication:Diabetes mellitus type II, controlled Start:29-Apr-2019 Instruction Type:Patient Education How to access health informa tion online - Detail Indication:Diabetes mellitus type II, controlled Start:29-Apr-2019 Instruction Type:Patient Education Patient Instructions Indication:Diabetes mellitus type II, controlled Start:29-Apr-2019 Instruction Type:Provider Instructions for Treatment How to access health informa tion online Indication:BMI 22.0-22.9, adult Start:24-Dec-2018 Instruction Type:Patient Education How to access health informa tion online - Detail Indication:BMI 22.0-22.9, adult Start:24-Dec-2018 Instruction Type:Patient Education Patient Instructions Indication:BMI 22.0-22.9, adult Start:24-Dec-2018 Instruction Type:Provider Instructions for Treatment How to access health informa tion online Indication:Smoker Start:14-May-2018 Instruction Type:Patient Education How to access health informa tion online - Detail Indication:Smoker Start:14-May-2018 Instruction Type:Patient Education Patient Instructions Indication:Smoker Start:14-May-2018 Instruction Type:Provider Instructions for Treatment How to access health informa tion online Indication:Smoker Start:16-Apr-2018 Instruction Type:Patient Education How to access health informa tion online - Detail Indication:Smoker Start:16-Apr-2018 Instruction Type:Patient Education Patient Instructions Indication:Smoker Start:16-Apr-2018 Instruction Type:Provider Instructions for Treatment How to access health informa tion online Indication:Nonsmoker Start:17-Nov-2017 Instruction Type:Patient Education How to access health informa tion online - Detail Indication:Nonsmoker Start:17-Nov-2017 Instruction Type:Patient Education Patient Instructions Indication:Nonsmoker Start:17-Nov-2017 Instruction Type:Provider Instructions for Treatment How to access health informa tion online Indication:Nonsmoker Start:03-Nov-2017 Instruction Type:Patient Education How to access health informa tion online - Detail Indication:Nonsmoker Start:03-Nov-2017 Instruction Type:Patient Education Patient Instructions Indication:Nonsmoker Start:03-Nov-2017 Instruction Type:Provider Instructions for Treatment How to access health informa tion online Indication:BMI 25.0-25.9,adult Start:27-Oct-2017 Instruction Type:Patient Education How to access health informa tion online - Detail Indication:BMI 25.0-25.9,adult Start:27-Oct-2017 Instruction Type:Patient Education Patient Instructions Indication:BMI 25.0-25.9,adult Start:27-Oct-2017 Instruction Type:Provider Instructions for Treatment How to access health informa tion online Indication:BMI 25.0-25.9,adult Start:06-Mar-2017 Instruction Type:Patient Education How to access health informa tion online - Detail Indication:BMI 25.0-25.9,adult Start:06-Mar-2017 Instruction Type:Patient Education Patient Instructions Indication:BMI 25.0-25.9,adult Start:06-Mar-2017 Instruction Type:Provider Instructions for Treatment How to access health informa tion online Indication:Nasal congestion Start:09-Oct-2016 Instruction Type:Patient Education How to access health informa tion online - Detail Indication:Nasal congestion Start:09-Oct-2016 Instruction Type:Patient Education Patient Instructions Indication:Nasal congestion Start:09-Oct-2016 Instruction Type:Provider Instructions for Treatment How to access health informa tion online Indication:Need for prophylactic vaccination and inoculation against influenza Start:26-Mar-2016 Instruction Type:Patient Education How to access health informa tion online - Detail Indication:Need for prophylactic vaccination and inoculation against influenza Start:26-Mar-2016 Instruction Type:Patient Education Patient Instructions Indication:Need for prophylactic vaccination and inoculation against influenza Start:26-Mar-2016 Instruction Type:Provider Instructions for Treatment How to access health informa tion online - Detail Indication:Elevated fasting glucose Start:21-Jun-2015 Instruction Type:Patient Education Patient Instructions Indication:Elevated fasting glucose Start:21-Jun-2015 Instruction Type:Provider Instructions for Treatment How to access health informa tion online Indication:Annual physical exam Start:29-Dec-2014 Instruction Type:Patient Education How to access health informa tion online - Detail Indication:Annual physical exam Start:29-Dec-2014 Instruction Type:Patient Education Patient Instructions Indication:Annual physical exam Start:29-Dec-2014 Instruction Type:Provider Instructions for Treatment Patient Instructions Indication:Vertigo Start:14-Nov-2014 Instruction Type:Provider Instructions for Treatment Patient Instructions Indication:Cough Start:25-Aug-2014 Instruction Type:Provider Instructions for Treatment Patient Instructions Indication:Dysthymic Start:04-Jul-2014 Instruction Type:Provider Instructions for Treatment Patient Instructions Indication:Dysthymic Start:29-Sep-2013 Instruction Type:Provider Instructions for Treatment Chief Complaint Chief Complaint Description Start Date neck pain Preliminary chief co mplaint data, not yet signed by the author as of Assessments There may be information available, but it has not been provided by the sender. Review of System There may be information available, but it has not been provided by the sender. History of Present Illness There may be information available, but it has not been provided by the sender. Medications Administered Section Active Administered Medications - up to 3 most recent administrations Medication Order MAR Action Action Date Dose Rate Site fluorescein-benoxinate 0.25-0.4 % 1 Drop (FLURESS) 1 Drop, LEFT EYE, DIRECTED, Starting on Fri09/25/21 at 1100, Until Fri09/25/21 at 2259, Administer for applanation tonometry. In the event of a Fluress shortage, administer Towanda-Fluor 1 drop into the left eye as directed for applanation tonometry Given 09/25/2021 11:00 AM EDT 1 Drop Active Administered Medications - up to 3 most recent administrations Medication Order MAR Action Action Date Dose Rate Site fluorescein-benoxinate 0.25-0.4 % 1 Drop (FLURESS) 1 Drop, BOTH EYES, DIRECTED, Starting on Fri10/18/21 at 1230, Until Fri10/19/21 at 0029, Administer for applanation tonometry. In the event of a Fluress shortage, administer Kimberley-Fluor 1 drop into both eyes as directed for applanation tonometry Given 10/18/2021 12:30 PM EDT 1 Drop Inactive Administered Medications - up to 3 most recent administrations Medication Order MAR Action Action Date Dose Rate Site cyclopentolate 1 % 1 Drop (CYCLOGYL) 1 Drop, LEFT EYE, ONCE, 1 dose, On Fri11/04/22 at 1130, FOR THE EYE Given 11/04/2022 11:30 AM EDT 1 Drop fluorescein-proparacaine 1 Drop eye drops 1 Drop, BOTH EYES, ONCE, 1 dose, On Fri11/04/22 at 1130, FOR THE EYE. REFRIGERATE Given 11/04/2022 11:30 AM EDT 1 Drop Active Administered Medications - up to 3 most recent administrations Medication Order MAR Action Action Date Dose Rate Site fluorescein-benoxinate 0.25-0.4 % 1 Drop (FLURESS) 1 Drop, LEFT EYE, DIRECTED, Starting on Fri11/06/22 at 1230, Until Fri11/07/22 at 0029, Administer for applanation tonometry. In the event of a Fluress shortage, administer Towanda-Fluor 1 drop into the left eye as directed for applanation tonometry Given 11/06/2022 12:30 PM EDT 1 Drop Chief Complaint and Reason for Visit Chief Complaint LEFT SHOULDER Chief Complaint LEFT SHOULDER SMOKER Reason for Visit Impingement of left shoulder Left shoulder pain Chief Complaint Admit Date Consider IVC Filter July 20, 2024 8 :56am DDD November 02, 2024 10:39a m Reason for Visit Admit Date History of pulmonary embolus (PE) r 2024 8:56am Chief Complaint Admit Date DDD November 02, 2024 10:39a m COPD November 18, 2024 6:46a m Chief Complaint Admit Date DDD November 02, 2024 10:39a m COPD November 18, 2024 6:46a m COPD November 18, 2024 7:04a m LUQ PAIN/PULM EMBOLISM; EDEMA December 16, 2024 9:02am Chief Complaint Admit Date November 02, 2024 10:39a m COPD November 18, 2024 6:46a m COPD November 18, 2024 7:04a m LUQ PAIN/PULM EMBOLISM; EDEMA December 16, 2024 9:02am compression fracture of T12 vertebra Dec 2:45pm Chief Complaint Admit Date November 02, 2024 10:39a m COPD November 18, 2024 6:46a m COPD November 18, 2024 7:04a m LUQ PAIN/PULM EMBOLISM; EDEMA December 16, 2024 9:02am compression fracture of T12 vertebra Dec 2:45pm Bloating January 20, 2025 9:58 am Reason for Visit Admit Date Abdominal bloating January 20, 2025 9:58 am Additional Source Comments INFORMATION SOURCE (unrecogn ized section and content) DATE CREATED AUTHOR 12/19/2017 [facility] DATE CREATED AUTHOR AUTHOR'S ORGANIZ ATION 11/21/2018 [facility] ([place] DATE CREATED AUTHOR AUTHOR'S ORGANIZ ATION 09/20/2021 [facility] DATE CREATED AUTHOR AUTHOR'S ORGANIZ ATION 08/09/2022 [facility] DATE CREATED AUTHOR AUTHOR'S ORGANIZ ATION 04/12/2024 [facility] DATE CREATED AUTHOR AUTHOR'S ORGANIZ ATION 07/09/2024 [facility] DATE CREATED AUTHOR AUTHOR'S ORGANIZ ATION 10/15/2024 [facility] DATE CREATED AUTHOR AUTHOR'S ORGANIZ ATION 11/27/2024 [facility] DATE CREATED AUTHOR AUTHOR'S ORGANIZ ATION 02/12/2025 [facility] Reason for Visit (unrecogniz ed section and content) Reason For Visit Description New - 1st visit with practice Preliminary reason f or visit data, not yet signed by the author as of neck pain Reason Comments Keratitis Follow Up left eye Reason Comments Contact Lens Follow Up feels like contac t is stuck in right eye Reason Comments Red Eye Left Eye Reason Comments Iritis Follow Up Left eye Reason Comments Diabetes Contact lens evaluation Reason Comments Med Refill Reason Comments New Patient Renal lesion Specialty Diagnoses / Procedures Referred By Contac t Referred To Contact Urology Diagnoses RENAL LESION Procedures EVAL AND TX Ayaka Veliz MD [address] [place] [address] Phone: tel: fax: [facility] [address] [place] [address] Phone: tel: fax: Referral ID Status Reason Start Date Expiration Date V isits Requested Visits Authorized [id number] Pending Review 04/15/2024 04/15/2025 1 1 Reason Onset Date Comments Surgery Scheduling 05/19/2024 Reason Comments Follow Up After Procedure Path review Reason Onset Date Comments Other 07/29/2024 [facility] Reason Comments Blurred Vision Left Eye Reason Comments Renal Cancer Follow up Source Comments (unrecognize d section and content) In the event this informatio n is protected by the Federal Confidentiality of Alcohol and Drug Abuse Patient Records regulations: The Federal rules restrict any use of the information to criminally investigate or prosecute any alcohol or drug abuse patient.[facility] the event this information is protected by the Federal Confidentiality of Alcohol and Drug Abuse Patient Records regulations: The Federal rules restrict any use of the information to criminally investigate or prosecute any alcohol or drug abuse patient.[facility] Hospital[facility] the event this information is protected by the Federal Confidentiality of Alcohol and Drug Abuse Patient Records regulations: The Federal rules restrict any use of the information to criminally investigate or prosecute any alcohol or drug abuse patient.[facility] Hospital[facility] the event this information is protected by the Federal Confidentiality of Alcohol and Drug Abuse Patient Records regulations: The Federal rules restrict any use of the information to criminally investigate or prosecute any alcohol or drug abuse patient.[facility] Hospital[facility] the event this information is protected by the Federal Confidentiality of Alcohol and Drug Abuse Patient Records regulations: The Federal rules restrict any use of the information to criminally investigate or prosecute any alcohol or drug abuse patient.[facility] Hospital[facility] the event this information is protected by the Federal Confidentiality of Alcohol and Drug Abuse Patient Records regulations: The Federal rules restrict any use of the information to criminally investigate or prosecute any alcohol or drug abuse patient.[facility] Hospital[facility] the event this information is protected by the Federal Confidentiality of Alcohol and Drug Abuse Patient Records regulations: The Federal rules restrict any use of the information to criminally investigate or prosecute any alcohol or drug abuse patient.[facility] Care Teams (unrecognized sec tion and content) Country Sales Manager Relationship Specialty Start Date End Date Juan Chan DO PCP - General Internal Medicine 04/09/17 Country Sales Manager Relationship Specialty Start Date End Date Juan Chan DO PCP - General Internal Medicine 04/09/17 Country Sales Manager Relationship Specialty Start Date End Date Juan Chan DO (Fax) PCP - General Internal Medicine 04/09/17 Country Sales Manager Relationship Specialty Start Date End Date Juan Chan DO PCP - General Internal Medicine 04/09/17 Country Sales Manager Relationship Specialty Start Date End Date Juan Chan DO PCP - General Internal Medicine 04/09/17 Team Status: Active Member Role Status Dates Dr. Juan Chan DO Family Provider Active Dr. Juan Chan DO Primary Care Provider Active Team Status: Inactive Member Role Status Dates Dr. Juan Chan DO Primary Care Provider, Referr ing Provider Active Aydin Blackmon MD Attending Provider Active Team Status: Inactive Member Role Status Dates Dr. Juan Chan DO Primary Care Pr ovider, Attending Provider, Referring Provider Active Country Sales Manager Relationship Specialty Start Date End Date Juan Chan DO (Fax) PCP - General Internal Medicine 04/09/17 Country Sales Manager Relationship Specialty Start Date End Date Juan Chan DO [address] [place] [address] (Fax) PCP - General 10/14/16 Country Sales Manager Relationship Specialty Start Date End Date Juan Chan DO [address] [place] [address] PCP - General 10/14/16 Berto Ibarra MD [address] [facility] [address] [place] [address] Surgeon Urology 04/14/24 Country Sales Manager Relationship Specialty Start Date End Date Juan Chan DO [address] [place] [phone] PCP - General 10/14/16 [address]erto I[address] [place] [address] Surgeon Urology 04/14/24 Country Sales Manager Relationship Specialty Start Date End Date Juan Chan DO [address] [place] [phone] PCP - General 10/14/16 Berto Ibarra MD [address] [place] [address] Surgeon Urology 04/14/24 Rodríguez Vick MD [address] [place] [address] Surgeon Urology 04/29/24 Country Sales Manager Relationship Specialty Start Date End Date Juan Chan DO [address] [place] [phone] PCP - General 10/14/16 Berto Ibarra MD [address] [place] [address] Surgeon Urology 04/14/24 Rodríguez Vick MD [address] [place] [address] Surgeon Urology 04/29/24 Country Sales Manager Relationship Specialty Start Date End Date Juan Chan DO [address] [place] [phone] PCP - General 10/14/16 Berto Ibarra MD [address] [place] [address] Surgeon Urology 04/14/24 Rodríguez Vick MD [address] [place] [address] Surgeon Urology 04/29/24 Country Sales Manager Relationship Specialty Start Date End Date Juan Chan DO [address] [place] [phone] PCP - General 10/14/16 Berto Ibarra MD [address] [place] [address] Surgeon Urology 04/14/24 Rodríguez Vick MD [address] [place] [address] Surgeon Urology 04/29/24 Country Sales Manager Relationship Specialty Start Date End Date Juan Chan DO [address] [place] [phone] PCP - General 10/14/16 Berto Ibarra MD [address] [place] [address] Surgeon Urology 04/14/24 Rodríguez Vick MD [address] [place] [address] Surgeon Urology 04/29/24 Country Sales Manager Relationship Specialty Start Date End Date Juan Chan DO [address] [place] [phone] PCP - General 10/14/16 Berto Ibarra MD [address] [place] [address] Surgeon Urology 04/14/24 Rodríguez Vick MD [address] [place] [address] Surgeon Urology 04/29/24 Country Sales Manager Relationship Specialty Start Date End Date Juan Chan DO [address] [place] [phone] PCP - General 10/14/16 Berto I[address] [place] [address] Surgeon Urology 04/14/24 Rodríguez Vick MD [address] [place] [address] Surgeon Urology 04/29/24 Country Sales Manager Relationship Specialty Start Date End Date Juan Chan DO [address] [place] [phone] PCP - General 10/14/16 Berto Ibarra MD [address] [place] [address] Surgeon Urology 04/14/24 Rodríguez Vick MD [address] [place] [address] Surgeon Urology 04/29/24 Country Sales Manager Relationship Specialty Start Date End Date Juan Chan DO [address] [place] [phone] PCP - General 10/14/16 Berto Ibarra MD [address] [place] [address] Surgeon Urology 04/14/24 Rodríguez Vick MD [address] [place] [address] Surgeon Urology 04/29/24 Country Sales Manager Relationship Specialty Start Date End Date Juan Chan DO [address] [place] [phone] PCP - General 10/14/16 Berto Ibarra MD [address] [place] [address] Surgeon Urology 04/14/24 Rodríguez Vick MD [address] [place] [address] Surgeon Urology 04/29/24 Country Sales Manager Relationship Specialty Start Date End Date Juan Chan DO [address] [place] [phone] PCP - General 10/14/16 Berto Ibarra MD [address] [place] [address] Surgeon Urology 04/14/24 Rodríguez Vick MD [address] [place] [address] Surgeon Urology 04/29/24 Country Sales Manager Relationship Specialty Start Date End Date Juan Chan DO PCP - General Internal Medicine 04/09/17 Country Sales Manager Relationship Specialty Start Date End Date Juan Chan DO [address] [facility] [address] [place] [phone] PCP - General 10/14/16 Berto Ibarra MD [address] [place] [address] Surgeon Urology 04/14/24 Rodríguez Vick MD [address] [place] [address] Surgeon Urology 04/29/24 Team Status: Active Member Role Status Dates Dr. Juan Chan DO Primary Care Provider Active Team Status: Inactive Member Role Status Dates Dr. Juan Chan DO Primary Care Provider Active Start: July 20, 2024 End: July 20, 2024 Dr. Juan Chan DO Referring Provider Active Start: July 20, 2024 End: July 20, 2024 OMAR Nascimento Attending Provider Active Star t: July 20, 2024 End: July 20, 2024 Team Status: Inactive Member Role Status Dates Dr. Juan Chan DO Primary Care Provider Active Start: November 02, 2024 End: November 02, 2024 NP. Ashli Sloan Attending Provider Active Star t: November 02, 2024 End: November 02, 2024 NP. Ashli Sloan Referring Provider Active Star t: November 02, 2024 End: November 02, 2024 Team Status: Inactive Member Role Status Dates Dr. Juan Chan DO Primary Care Provider Active Start: November 15, 2024 End: November 15, 2024 Dr. Jewel Gallegos MD Attending Provider Active Start: November 15, 2024 End: November 15, 2024 Dr. Jewel Gallegos MD Referring Provider Active Start: November 15, 2024 End: November 15, 2024 Team Status: Inactive Member Role Status Dates Dr. Juan Chan DO Primary Care Provider Active Start: November 18, 2024 End: November 18, 2024 Dr. Juan Chan DO Attending Provider Active Start: November 18, 2024 End: November 18, 2024 Dr. Juna Chan DO Referring Provider Active Start: November 18, 2024 End: November 18, 2024 Country Sales Manager Relationship Specialty Start Date End Date Juan Chan DO [address] [facility] [address] [place] [phone] PCP - General 10/14/16 Berto Ibarra MD [address] [place] [address] Surgeon Urology 04/14/24 Rodríguez Vick MD [address] [place] [address] Surgeon Urology 04/29/24 Team Status: Active Member Role Status Dates Dr. Juan Chan DO Primary Care Provider Active Start: November 18, 2024 Dr. Juan Chan DO Referring Provider Active Start: November 18, 2024 Dr. Valdemar Solomon DO Attending Provider Active S tart: November 18, 2024 Team Status: Inactive Member Role Status Dates Dr. Juan Chan DO Primary Care Provider Active Start: December 16, 2024 End: December 16, 2024 Dr. Juan Chan DO Attending Provider Active Start: December 16, 2024 End: December 16, 2024 Dr. Juan Chan DO Referring Provider Active Start: December 16, 2024 End: December 16, 2024 Team Status: Active Member Role Status Dates Dr. Juan Chan DO Primary Care Provider Active Start: December 16, 2024 Dr. Renard Breaux MD Attending Provider Activ e Start: December 16, 2024 Team Status: Active Member Role/Relationship Status Dates Dr. Juan Chan DO Primary Care Provider Active Team Status: Inactive Member Role/Relationship Status Dates Dr. Juan Chan DO Primary Care Provider Active Start: November 02, 2024 End: November 02, 2024 PRODUCTION SUPPLY EQUIPMENT TENDER. Ashli Nathalia Attending Provider Active Star t: November 02, 2024 End: November 02, 2024 PRODUCTION SUPPLY EQUIPMENT TENDER. Ashli Sloan Referring Provider Active Star t: November 02, 2024 End: November 02, 2024 Team Status: Inactive Member Role/Relationship Status Dates Dr. Juan Chan DO Primary Care Provider Active Start: November 15, 2024 End: November 15, 2024 Dr. Jewel Gallegos MD Attending Provider Active Start: November 15, 2024 End: November 15, 2024 Dr. Jewel Gallegos MD Referring Provider Active Start: November 15, 2024 End: November 15, 2024 Team Status: Inactive Member Role/Relationship Status Dates Dr. Juan Chan DO Primary Care Provider Active Start: November 18, 2024 End: November 18, 2024 Dr. Juan Chan DO Attending Provider Active Start: November 18, 2024 End: November 18, 2024 Dr. Juan Chan DO Referring Provider Active Start: November 18, 2024 End: November 18, 2024 Team Status: Active Member Role/Relationship Status Dates Dr. Juan Chan DO Primary Care Provider Active Start: November 18, 2024 Dr. Juan Chan DO Referring Provider Active Start: November 18, 2024 Dr. Valdemar Solomon DO Attending Provider Active S tart: November 18, 2024 Team Status: Inactive Member Role/Relationship Status Dates Dr. Juan Chan DO Primary Care Provider Active Start: December 16, 2024 End: December 16, 2024 Dr. Juan Chan DO Attending Provider Active Start: December 16, 2024 End: December 16, 2024 Dr. Juan Chan DO Referring Provider Active Start: December 16, 2024 End: December 16, 2024 Team Status: Active Member Role/Relationship Status Dates Dr. Juan Chan DO Primary Care Provider Active Start: December 16, 2024 Dr. Renard Breaux MD Attending Provider Activ e Start: December 16, 2024 Team Status: Inactive Member Role/Relationship Status Dates Dr. Juan Chan DO Primary Care Provider Active Start: January 11, 2025 End: January 11, 2025 Dr. Juan Chan DO Attending Provider Active Start: January 11, 2025 End: January 11, 2025 Dr. Juan Chan DO Referring Provider Active Start: January 11, 2025 End: January 11, 2025 Team Status: Inactive Member Role/Relationship Status Dates Dr. Juan Chan DO Primary Care Provider Active Start: December 28, 2024 Dr. Ayaka Veliz MD Attending Provider Active Start: December 28, 2024 Team Status: Inactive Member Role/Relationship Status Dates Dr. Juan Chan DO Primary Care Provider Active Start: January 11, 2025 End: January 11, 2025 Dr. Juan Chan DO Attending Provider Active Start: January 11, 2025 End: January 11, 2025 Dr. Juan Chan DO Referring Provider Active Start: January 11, 2025 End: January 11, 2025 Team Status: Inactive Member Role/Relationship Status Dates Dr. Juan Chan DO Primary Care Provider Active Start: January 20, 2025 End: January 20, 2025 Dr. Juan Chan DO Referring Provider Active Start: January 20, 2025 End: January 20, 2025 OMAR Clark Attending Provider Active Start: January 20, 2025 End: January 20, 2025 Goals (unrecognized section and content) Goals may be documented in a n alternate sectionGoals may be documented in an alternate section No data available for this section No data available for this section No data available for this section No data available for this section No data available for this section No data available for this section No data available for this sectionGoals may be documented in an alternate section Scheduled Active and Recently Administ ered Medications (unrecognized section and content) Medication Order 07/13/2024 07/14/2024 07/15/2024 acetaminophen (Tylenol) tablet 1,000 mg (COMPLETED) 1,000 mg, Oral, Once, On Fri07/14/24 at 0545, For 1 dose, Preprocedure, Maximum dose of acetaminophen is 4000 mg from all sources in 24 hours. Do not administer if patient has taken tylenol <6 hours earlier. Do not give if contraindicated ie. patient has active liver disease or cirrhosis. 0555 (Given - Provider: Antoinette Tiwari, ASHLI) acetaminophen (Tylenol) tablet 1,000 mg 1,000 mg, Oral, Every 6 hours, First dose on Fri07/14/24 at 1515, Phase II/On Unit 1642 (Given - Provider: Mark Joyner RN)2105 (Given - Provider: Kendra Elena, ASHLI) 0315 (Not Given - Provider: Kendra Elena RN - Reason: Patient/family refused)1030 (Given - Provider: Kathi Baird RN)1515 (Canceled Entry - Provider: Automatic Discharge Provider - Comment: Automatically canceled at discontinue of medication order) amitriptyline (Elavil) tablet 50 mg 50 mg, Oral, Nightly, First dose on Fri07/14/24 at 2100, Recovery & On Unit 2105 (Given - Provider: Kendra Elena RN) aprepitant (Emend) capsule 40 mg (COMPLETED) 40 mg, Oral, Once, On Fri07/14/24 at 0545, For 1 dose, Preprocedure 0555 (Given - Provider: Antoinette Tiwari RN) ceFAZolin (Ancef) 1,000 mg in sodium chloride 0.9 % 50 mL IVPB (COMPLETED) 1,000 mg, IntraVENous, at 100 mL/hr, Administer over 30 Minutes, Every 8 hours, First dose on Fri07/14/24 at 1400, For 3 doses, Recovery & On Unit, Mini-Bag Plus bag, Suspected Indication (Select all that apply): Surgical Prophylaxis 1644 (New Bag - Provider: Mark Joyner RN - Comment: late from pharmacy)1714 (Stopped - Provider: Mark Joyner RN)210 (New Bag - Provider: Kendra Elena RN)2135 (Stopped - Provider: Kendra Elena RN) 0614 (New Bag - Provider: Kendra Elena RN)0644 (Stopped - Provider: Kendra Elena RN) ceFAZolin in dextrose 4% (Ancef) IVPB 2,000 mg (COMPLETED) 2,000 mg, IntraVENous, Administer over 30 Minutes, Orthopaedic Technologist to O.R., On Fri07/14/24 at 0545, For 1 dose, Preprocedure, Administer 60 minutes prior to surgery. premix bag, Suspected Indication (Select all that apply): Surgical Prophylaxis 0720 (Given - Provider: Rachel Gonzalez APRN - COTTON PICKER OPERATOR) clonazePAM (KlonoPIN) tablet 0.5 mg 0.5 mg, Oral, Daily, First dose on Fri07/14/24 at 1030, Recovery & On Unit 1030 (Canceled Entry - Provider: Automatic Discharge Provider - Comment: Automatically canceled at discontinue of medication order) 1029 (Given - Provider: Kathi Baird, ASHLI) docusate sodium (Colace) capsule 100 mg 100 mg, Oral, 2 times daily, First dose on Fri07/14/24 at 2100, Phase II/On Unit, Bowel Regimen - for prevention of constipation. 2104 (Given - Provider: Kendra Elena RN) 1030 (Given - Provider: Kathi Baird RN) DULoxetine (Cymbalta) DR capsule 60 mg 60 mg, Oral, Nightly, First dose on Fri07/14/24 at 2100, Recovery & On Unit, Do not crush or chew. 2104 (Given - Provider: Kendra Elena RN) enoxaparin (Lovenox) syringe 40 mg 40 mg, SubCUTAneous, Every 24 hours scheduled (Daily), First dose on Kristie 07/15/24 at 0900, Phase II/On Unit, Indication of Use: Prophylaxis-DVT/PE, Indications: Prophylaxis of Venous Thromboembolism 103 (Given - Provid er: Kathi Baird RN) famotidine (Pepcid) tablet 20 mg (COMPLETED)(Linked Group 1) 20 mg, Oral, Once, On Fri07/14/24 at 0545, For 1 dose, Preprocedure, IV or ORAL 0555 (Given - Provider: Antoinette Tiwari, ASHLI) nicotine (Nicoderm, Step 1) 21 MG/24HR patch 1 patch(Linked Group 2) 1 patch, TransDERmal, Administer over 24 Hours, Daily, First dose on Fri07/14/24 at 1930, For 42 days, Apply new patch to nonhairy, clean, dry skin on the upper body or upper outer arm. Rotate patch sites. Notify Pharmacy if patient or provider prefers patch to be removed at bedtime and replaced in the morning. 1940 (Medication Applied - Provider: Kendra Elena RN) 0859 (Medication Removed - Provider: Kathi Baird, ASHLI)1031 (Medication Applied - Provider: Kathi Baird RN)1450 (Due: Medication Removed - Provider: Automatic Discharge Provider - Comment: Time automatically adjusted from order being discontinued) nicotine (Nicoderm, Step 2) 14 MG/24HR patch 1 patch(Linked Group 2) 1 patch, TransDERmal, Administer over 24 Hours, Daily, First dose on Fri08/25/24 at 0900, For 14 days, Apply new patch to nonhairy, clean, dry skin on the upper body or upper outer arm. Rotate patch sites. Notify Pharmacy if patient or provider prefers patch to be removed at bedtime and replaced in the morning. nicotine (Nicoderm, Step 3) 7 MG/24HR patch 1 patch(Linked Group 2) 1 patch, TransDERmal, Administer over 24 Hours, Daily, First dose on Fri09/08/24 at 0900, For 14 days, Apply new patch to nonhairy, clean, dry skin on the upper body or upper outer arm. Rotate patch sites. Notify Pharmacy if patient or provider prefers patch to be removed at bedtime and replaced in the morning. primidone (Mysoline) tablet 150 mg 150 mg, Oral, 3 times daily, First dose on Fri07/14/24 at 1030, Recovery & On Unit 1030 (Canceled Entry - Provider: Automatic Discharge Provider - Comment: Automatically canceled at discontinue of medication order)1643 (Given - Provider: Mark Joyner RN - Comment: late from pharmacy)2105 (Given - Provider: Kendra Elena RN) 1033 (Given - Provider: Kathi Baird RN)1400 (Canceled Entry - Provider: Automatic Discharge Provider - Comment: Automatically canceled at discontinue of medication order) rosuvastatin (Crestor) tablet 40 mg 40 mg, Oral, Nightly, First dose on Fri07/14/24 at 2100, Recovery & On Unit 2104 (Given - Provider: Kendra Elena RN) sodium chloride 0.9% (NS) flush 10 mL 10 mL, IntraVENous, Every 12 hours scheduled (2 times per day), First dose on Fri07/14/24 at 2100, Phase II/On Unit 2100 (Not Given - Provider: Kendra Elena RN - Reason: IV Fluids Infusing) 0900 (Given - Provider: Kathi Baird, ASHLI) tiZANidine (Zanaflex) tablet 4 mg 4 mg, Oral, 3 times daily, First dose on Fri07/14/24 at 1030, Recovery & On Unit 1030 (Canceled Entry - Provider: Automatic Discharge Provider - Comment: Automatically canceled at discontinue of medication order)1400 (Not Given - Provider: Mark Joyner RN - Reason: Patient/family refused)2100 (Not Given - Provider: Kendra Elena RN - Reason: Patient/family refused) 1031 (Given - Provider: Kathi Baird RN)1400 (Canceled Entry - Provider: Automatic Discharge Provider - Comment: Automatically canceled at discontinue of medication order) topiramate (Topamax) tablet 25 mg 25 mg, Oral, 2 times daily, First dose on Fri07/14/24 at 1030, Recovery & On Unit, Do not crush, chew, or split. 1030 (Canceled Entry - Provider: Automatic Discharge Provider - Comment: Automatically canceled at discontinue of medication order)2105 (Given - Provider: Kendra Elena RN) 1031 (Given - Provider: Kathi Baird, ASHLI) traZODone (Desyrel) tablet 450 mg 450 mg, Oral, Nightly, First dose on Fri07/14/24 at 2100, Recovery & On Unit 210 (Given - Provider: Kendra Elena RN) Continuous Medication Order 07/13/2024 07/14/2024 07/15/2024 lactated Ringer's (LR) infusion 50 mL/hr, IntraVENous, Continuous, Starting on Fri07/14/24 at 0545, Upon admission to sameday - please start iv if patient does not have iv access. Use 500ml NS for patients on dialysis. 0555 (New Bag - Provider: Sa ra Te RN)0706 (Paused - Provider: KLAUDIA Barlow CRNA - Comment: Switch to gravity)0707 (Restarted - Provider: KLAUDIA Barlow CRNA)0911 (Anesthesia Volume Adjustment - Provider: KLAUDIA Barlow CRNA)09 (Anesthesia Volume Adjustment - Provider: KLAUDIA Barlow CRNA) lactated ringers infusion 75 mL/hr, IntraVENous, Continuous, Starting on Fri07/14/24 at 1515, Phase II/On Unit 1515 (New Bag - Provider: Mark Joyner RN) PRN Medication Order 07/13/2024 07/14/2024 07/15/2024 albuterol 108 (90 Base) MCG/ACT inhaler 2 puff 2 puff, Inhalation, Every 4 hours PRN, shortness of breath, Starting on Fri07/14/24 at 1012, Recovery & On Unit ALPRAZolam (Xanax) disintegrating tablet 0.25 mg (COMPLETED) 0.25 mg, Oral, PRN, anxiety, Starting on Fri07/14/24 at 0540, For 1 dose, Preprocedure 0555 (Given - Provider: Antoinette Tiwari, ASHLI) fibrin sealant (human) (VISTASEAL) syringe (CANCELED) As needed, Starting on Fri07/14/24 at 0858, Intraprocedure 0858 (Given - Provider: Rodríguez Vick MD) HYDROmorphone (Dilaudid) injection 0.25 mg (CANCELED) 0.25 mg, IntraVENous, Every 5 min PRN, moderate pain (4-6), Starting on Fri07/14/24 at 0946, For 2 doses, Recovery (only), Phase I and Phase II- Initial therapy for moderate pain (4-6). Restricted to a 90 minute time frame starting when the patient can verbally state their pain score. If after 2 doses the pain score does not decrease by more than one point, then call the provider. If oral meds are utilized, do not return to initial therapy medications. 1027 (Given - Provider: Gabrielle Calderón, ASHLI) naloxone (Narcan) injection 0.4 mg 0.4 mg, IntraVENous, Every 5 min PRN, opioid reversal, respiratory depression, Starting on Fri07/14/24 at 1509, +++ For RR <10, pinpoint pupils, over sedation for opioid reversal - MUST notify sourcing consultant provider immediately after first dose, may give IM or SQ if no IV access +++ ondansetron (Zofran) injection 4 mg(Linked Group 3) 4 mg, IntraVENous, Every 6 hours PRN, nausea, vomiting, Starting on Fri07/14/24 at 1509, Phase II/On Unit, 1st Line. Give IV if patient is unable to take orally. If inadequate response within 60 minutes, proceed to next-line agent or contact provider if no further options ordered. ondansetron ODT (Zofran-ODT) disintegrating tablet 4 mg(Linked Group 3) 4 mg, Oral, Every 8 hours PRN, nausea, vomiting, Starting on Fri07/14/24 at 1509, Phase II/On Unit, 1st Line. If inadequate response within 60 minutes, proceed to next-line agent or contact provider if no further options ordered. Patient should allow tablet to dissolve on tongue. Do not remove from blister pack until just before administering. oxyCODONE (Roxicodone) immediate release tablet 10 mg(Linked Group 4) 10 mg, Oral, Every 4 hours PRN, severe pain (7-10), Starting on Fri07/14/24 at 1509, Phase II/On Unit 1642 (See Alternative - Provider: Mark Joyner RN)210 (Given - Provider: Kendra Elena RN) 0420 (Given - Provider: Kendra Elena RN) oxyCODONE (Roxicodone) immediate release tablet 5 mg(Linked Group 4) 5 mg, Oral, Every 4 hours PRN, moderate pain (4-6), Starting on Fri07/14/24 at 1509, Phase II/On Unit 1642 (Given - Provider: Mark Joyner RN)210 (See Alternative - Provider: Kendra Elena RN) 0420 (See Alternative - Provider: Kendra Elena RN) polyethylene glycol (PEG) 3350 (Miralax) packet 17 g 17 g, Oral, Daily PRN, constipation, Starting on Fri07/14/24 at 1509, Phase II/On Unit, 1st line for treatment of constipation - give scheduled if no bowel movement in past 24 hours. sodium chloride 0.9 % infusion 5-250 mL/hr, IntraVENous, PRN, if patient receiving piggyback infusions and maintenance fluids are not ordered OR KVO fluids to protect IV site / prevent frequent line interruptions/ long duration, Starting on Fri07/14/24 at 1509, Phase II/On Unit, For piggyback infusion, administer at same rate as piggyback for a total of 25 mL. Enter 25 mL into dose field and piggyback rate into rate field of order. If piggyback is infusing at a rate less than 100 mL/hr, enter 25 mL into dose field and 100 mL/hr into rate field of order. For KVO fluids, enter rate of 20 mL/hr or less into rate field of order. sodium chloride 0.9 % irrigation solution (CANCELED) As needed, Starting on Fri07/14/24 at 0735, Intraprocedure 0735 (Given - Provider: Rodríguez Vick MD) sodium chloride 0.9% (NS) flush 10 mL 10 mL, IntraVENous, PRN, line care, Starting on Fri07/14/24 at 1509, Phase II/On Unit, After every IV line use Linked Groups Order Group 1: famotidine (Pepcid) tablet 20 mg (COMPLETED)Jump to med 20 mg, Oral, Once, On Fri07/14/24 at 0545, For 1 dose, Preprocedure, IV or ORAL Or famotidine (Pepcid) 20 mg in sodium chloride (PF) 0.9 % 10 mL injection (COMPLETED) 20 mg, IntraVENous, Administer over 2 Minutes, Once, On Fri07/14/24 at 0545, For 1 dose, Preprocedure, IV or ORAL Group 2: nicotine (Nicoderm, Step 1) 21 MG/24HR patch 1 patchJump to med 1 patch, TransDERmal, Administer over 24 Hours, Daily, First dose on Fri07/14/24 at 1930, For 42 days, Apply new patch to nonhairy, clean, dry skin on the upper body or upper outer arm. Rotate patch sites. Notify Pharmacy if patient or provider prefers patch to be removed at bedtime and replaced in the morning. Followed by nicotine (Nicoderm, Step 2) 14 MG/24HR patch 1 patchJump to med 1 patch, TransDERmal, Administer over 24 Hours, Daily, First dose on Fri08/25/24 at 0900, For 14 days, Apply new patch to nonhairy, clean, dry skin on the upper body or upper outer arm. Rotate patch sites. Notify Pharmacy if patient or provider prefers patch to be removed at bedtime and replaced in the morning. Followed by nicotine (Nicoderm, Step 3) 7 MG/24HR patch 1 patchJump to med 1 patch, TransDERmal, Administer over 24 Hours, Daily, First dose on Fri09/08/24 at 0900, For 14 days, Apply new patch to nonhairy, clean, dry skin on the upper body or upper outer arm. Rotate patch sites. Notify Pharmacy if patient or provider prefers patch to be removed at bedtime and replaced in the morning. Group 3: ondansetron ODT (Zofran-ODT) disintegrating tablet 4 mgJump to med 4 mg, Oral, Every 8 hours PRN, nausea, vomiting, Starting on Fri07/14/24 at 1509, Phase II/On Unit, 1st Line. If inadequate response within 60 minutes, proceed to next-line agent or contact provider if no further options ordered. Patient should allow tablet to dissolve on tongue. Do not remove from blister pack until just before administering. Or ondansetron (Zofran) injection 4 mgJump to med 4 mg, IntraVENous, Every 6 hours PRN, nausea, vomiting, Starting on Fri07/14/24 at 1509, Phase II/On Unit, 1st Line. Give IV if patient is unable to take orally. If inadequate response within 60 minutes, proceed to next-line agent or contact provider if no further options ordered. Group 4: oxyCODONE (Roxicodone) immediate release tablet 5 mgJump to med 5 mg, Oral, Every 4 hours PRN, moderate pain (4-6), Starting on Fri07/14/24 at 1509, Phase II/On Unit Or oxyCODONE (Roxicodone) immediate release tablet 10 mgJump to med 10 mg, Oral, Every 4 hours PRN, severe pain (7-10), Starting on Fri07/14/24 at 1509, Phase II/On Unit FOR RECORDS PERTAINING TO PATIENTS WHO ARE OR HAVE BEEN ENROLLED IN A CHEMICAL DEPENDENCY/SUBSTANCEABUSE PROGRAM, SOME INFORMATION MAY BE OMITTED. This clinical summary was aggregated from multiple sources. Caution should be exercised in using it in the provision of clinical care. This summary normalizes information from multiple sources, and as a consequence, information in this document may materially change the coding, format and clinical context of patient data. In addition, data may be omitted in some cases. CLINICAL DECISIONS SHOULD BE BASED ON THE PRIMARY CLINICAL RECORDS. [email or web address] provides no warranty or guarantee of the accuracy or completeness of information in this document.
[2025-02-14] MEDS: Lactated Ringers 1,000 ML 15 ML IV (07:08)
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
--- NOTE | 2025-02-14 07:53 | PCM.POST.ANE ---
Anesthesia: Postop Eval I Current Vital Signs Temperature: 97 F Pulse Rate: 92 Blood Pressure: 164/88 Respiratory Rate: 20 Pulse Ox: 97 Assessment Airway patent: Yes Spontaneous unlabored respirations: Yes nausea: No Vomiting: No Anesthesia Complication: No Fluid Hydration Crystalloid volume administer (ml): 200 Total IV fluid infused: 200 Progress Note Anesthesia document: Postop Eval 1 completed: Yes
--- NOTE | 2025-02-14 08:02 | PCM.OPRPT ---
Operative Report (Standard) Operative Information Date of Procedure: 02/14/25 Pre-Operative Diagnosis: Thoracic radiculopathy, thoracic degenerative disc disease, thoracic spinal stenosis Post-Operative Diagnosis: Thoracic radiculopathy, thoracic degenerative disc disease, thoracic spinal stenosis Surgery/Procedure Performed: Thoracic epidural steroid injection interlaminar at T8-9 under fluoroscopic guidance personal injury litigation paralegal: No Type of Anesthesia: Local MAC and MAC RN Documented Start/Stop Times: Operation Date: 02/14/25 07:50 Case Time Into Pre-Op 02/14/25 06:39 Out of Pre-Op 02/14/25 07:36 Anesthesia Start 02/14/25 07:45 Into Room 02/14/25 07:45 Procedure Start 02/14/25 07:51 Procedure End 02/14/25 07:53 Anesthesia End 02/14/25 07:57 Out of Room 02/14/25 07:57 Into Recovery 02/14/25 07:58 Procedure Start Time: 08:03 Procedure Stop Time: 08:03 Select all DRAINS/GRAFTS/IMPLANTS that apply: None Estimated Blood Loss: 0 Specimen collected: No Description of surgery: BLOOD LOSS: Minimal. COMPLICATIONS: None. DESCRIPTION OF PROCEDURE: History and physical of today was reviewed. Risks and benefits of the procedure were explained. The patient understood and agreed to proceed. Informed consent was obtained. IV inserted per routine protocol. The patient was taken to the operating room and placed in the prone position with a pillow positioned underneath the chest. The mid back area was prepped and draped in a sterile fashion using iodine x3. Under fluoroscopy guidance on an AP view, the T8-9 interlaminar space was identified. The skin and subcutaneous tissue was anesthetized with approximately 3 mL of 1% lidocaine using a 25-gauge regular needle. Under direct visualization on fluoroscopy, on AP view, using a 20-gauge 3-1/2-inch Tuohy needle, the needle was advanced via the skin. The tip of the needle was maneuvered and directed towards the interlaminar space at T8-9, loss of resistance technique was carried to air. Loss of resistance technique was encountered. Once encountered, after negative aspiration for blood and CSF, a total of 2 mL of contrast was injected to confirm correct placement of the needle as well as cephalocaudal spread of the contrast. Confirmation was obtained on AP as well as lateral view. After repeated negative aspiration and confirmation, a total of 6 mL of preservative-free normal saline and 80 mg of Depo-Medrol was injected easily. The needle was then removed intact. The patient experienced no sign or symptoms of intrathecal or intravascular injection. The patient experienced no paresthesia. The procedure was completed without any apparent difficulty or any complications. The patient appeared to tolerate it well. ASSESSMENT AND PLAN: This is a 60-year-old female with thoracic radiculopathy, thoracic spinal stenosis, thoracic degenerative disc disease status post thoracic epidural steroid injection interlaminar at T8-9 under fluoroscopic guidance, patient will continue her current medications, patient will follow-up in approximately 2 weeks for reevaluation. Surgical Findings: 0 Complications Complications: No Admit VTE Documentation VTE Present on Admission: No VTE Mechan Device Prophylaxis: None VTE Pharm Prophylaxis ordered?: No
--- NOTE | 2025-02-14 08:45 | RAD_ITS ---
PROCEDURE: THORACIC SPINE 2 VIEWS 02/14/2025 REASON FOR EXAM: BLOCK; THORACIC EPIDURAL TECHNIQUE: Fluoro for procedure COMPARISON: None FINDINGS: Fluoro = 7 seconds, 2.77 mGy, 2 images. RAD/Thoracic Spine 2 Views IMPRESSION: Fluoro was provided. Reading Location: [facility]
--- NOTE | 2025-02-14 13:42 | POSTOPAN2_ITS ---
Anesthesia Postop Eval I Sum Postop Eval Completion status Anesthesia document: Postop Eval 1 completed: Yes Anesthesia Postop Eval I Summary Anesthesia Postop Eval I Summary: Anesthesia Postop Eval I: Assessment Summary Airway patent Yes 02/14/25 07:54 YIELD [email or web address] [email or web address] Spontaneous unlabored Yes 02/14/25 07:54 YIELD IMPROVEMENT [email or web address].CSIR respirations Mental status nausea No 02/14/25 07:54 YIELD IMPROVEMENT ENGINEER.CSIR Vomiting No 02/14/25 07:54 YIELD IMPROVEMENT ENGINEER.CSIR Anesthesia Postop Eval I: Fluid Summary Crystalloid volume administer 200 02/14/25 07:54 YIELD IMPROVEMENT ENGINEER.CSIR (ml) Colloids volume administered ( ml) Blood Product volume administered (ml) Total IV fluid infused 200 02/14/25 07:54 YIELD IMPROVEMENT ENGINEER.CSIR Anesthesia Postop Eval I: Summary Notes Anesthesia Complication No 02/14/25 07:54 YIELD IMPROVEMENT [email or web address].CSIR Anesthesia Complication Comment: Post-operative progress note Anesthesia: Postop Eval II Evaluation Mental status: Awake and Calm Pain Level: 1 nausea: No Vomiting: No Complications Anesthesia Complication: No
--- NOTE | 2025-02-14 13:42 | PCM.POSTANE2 ---
Anesthesia Postop Eval I Sum Postop Eval Completion status Anesthesia document: Postop Eval 1 completed: Yes Anesthesia Postop Eval I Summary Anesthesia Postop Eval I Summary: Anesthesia Postop Eval I: Assessment Summary Airway patent Yes 02/14/25 07:54 MOVIE THEATER [email or web address] Spontaneous unlabored Yes 02/14/25 07:54 MOVIE THEATER USHER.CSIR respirations Mental status nausea No 02/14/25 07:54 MOVIE THEATER [email or web address].CSIR Vomiting No 02/14/25 07:54 MOVIE THEATER [email or web address].CSIR Anesthesia Postop Eval I: Fluid Summary Crystalloid volume administer 200 02/14/25 07:54 MOVIE THEATER [email or web address].CSIR (ml) Colloids volume administered ( ml) Blood Product volume administered (ml) Total IV fluid infused 200 02/14/25 07:54 MOVIE THEATER USHER.CSIR Anesthesia Postop Eval I: Summary Notes Anesthesia Complication No 02/14/25 07:54 MOVIE THEATER USHER.CSIR Anesthesia Complication Comment: Post-operative progress note Anesthesia: Postop Eval II Evaluation Mental status: Awake and Calm Pain Level: 1 nausea: No Vomiting: No Complications Anesthesia Complication: No
== END 2025-02-14 08:28 | disposition home or self-care (01) ==
LOC: SDC 06:38 → AC 06:39
PROVIDERS: PCP Internal Medicine; Referring Provider Anesthesiology Pain Medicine; Visit Provider Anesthesiology Pain Medicine
PROC: 3E0S3BZ Introduction of Anesthetic Agent into Epidural Space, Percutaneous Approach (ICD-10-PCS; CPT 62321; principal; 2025-02-14 07:45)
DX: M51.14 Intervertebral disc disorders with radiculopathy, thoracic region (principal); J44.9 Chronic obstructive pulmonary disease, unspecified; E11.9 Type 2 diabetes mellitus without complications; M48.04 Spinal stenosis, thoracic region; F32.A Depression, unspecified; F41.9 Anxiety disorder, unspecified; E78.00 Pure hypercholesterolemia, unspecified; M54.50 Low back pain, unspecified; G89.29 Other chronic pain; G25.81 Restless legs syndrome; F17.210 Nicotine dependence, cigarettes, uncomplicated; Z86.711 Personal history of pulmonary embolism; Z79.899 Other long term (current) drug therapy
CPT/HCPCS: 62321; 01992; 64490; 72070; 82962; J2405

== ENCOUNTER → 2025-03-02 | Outpatient (CLI) | payer OTHER, SELFPAY ==
--- NOTE | 2025-03-02 07:31 | BI_ITS ---
EXAM: SCRN MAMM (CAD)W/MARIANA BILAT DATE: 03/02/2025 CLINICAL HISTORY: F, Age 60 y/o , SCREENING No family history. History of remote left excisional breast biopsy. TECHNIQUE: Procedure Code: [id number] Modality: MG Procedure: SCRN MAMM (CAD)W/MARIANA BILAT COMPARISON: Prior exam(s) dated July 10, 2020.. FINDINGS: TISSUE DENSITY: There are scattered areas of fibroglandular density. Bilateral Breast Mammographic Findings: There is a 6.1 mm well-defined nodule in the upper lateral aspect of the left breast. A similar-appearing nodule measuring 4 mm is seen in the central retroareolar region of the left breast. Correlation with ultrasound recommended. BI/SCRN MAMM (CAD)W/MARIANA BILAT IMPRESSION: There are 2, small well-defined nodules in the left breast as described. Sonog raphic correlation recommended. OVERALL FINAL ASSESSMENT BI-RADS 0: INCOMPLETE - NEED ADDITIONAL IMAGING EVALUATION. RECOMMENDATION: Routine annual follow-up in 1 Year A letter with findings and recommendations will be mailed to the patient. Reading Location: [place] [id number]
--- NOTE | 2025-03-02 08:03 | CT_ITS ---
PROCEDURE: LOW DOSE CT LUNG SCREENING 03/02/2025 REASON FOR EXAM: TOBACCO ABUSE Patient has smoked 1 pack per day for 48 years. COPD. Shortness of breath. TECHNIQUE: Procedure Code: [id number] Modality: CT Procedure: LOW DOSE CT LUNG SCREENING Coronal and Sagittal reconstruction series were provided. One or more dose reduction techniques were used (e.g., Automated exposure control, adjustment of the mA and/or kV according to patient size, use of iterative reconstruction technique). REFERENCE LINK: [facility] Lung-RADS RADIATION DOSE SUMMARY: CTDlvol: 3.02 mGy DLP: 104.95 mGycm COMPARISON: Prior study dated January 07, 2023. FINDINGS: PULMONARY NODULES: (Only nodules >3mm are reported) Nodules described below are on series 1 unless otherwise specified. Pulmonary Nodules: No suspicious nodule is seen. Calcified granuloma in the superior segment of the right lower lobe as seen on axial image number 118 Hardware:None Lymph Nodes:Unremarkable Heart and Vasculature:The heart is nonenlarged. Coronary Artery Calcifications: Absent Lungs and Airways: Stable linear scarring at the lung bases more prominent on the right side. Pleura:No pleural effusion. Upper Abdomen:Unremarkable Bones:Degenerative changes of the thoracic spine. CT/Low Dose CT Lung Screening IMPRESSION: Stable examination. Coronary artery calcification (CAC) is is absent Lung-RADS Category: 2 BENIGN (BASED ON IMAGING FEATURES OR INDOLENT BEHAVIOR). RECOMMEND 12-MONTH SCREENING LDCT. Other Significant Findings: Reading Location: [place] [id number]
== END | disposition home or self-care (01) ==
PROVIDERS: PCP Internal Medicine; Referring Provider Internal Medicine; Visit Provider Internal Medicine
DX: Z12.31 Encounter for screening mammogram for malignant neoplasm of breast (principal); Z12.2 Encounter for screening for malignant neoplasm of respiratory organs; Z87.891 Personal history of nicotine dependence
CPT/HCPCS: 71271; 77063; 77067

== ENCOUNTER → 2025-03-14 | Outpatient (CLI) | payer OTHER, SELFPAY ==
[2025-03-14 15:26] LABS: Hematocrit 43.6 % (37-47); Hemoglobin 14.0 g/dL (12.0-15.0); Immature Granulocytes Count 0.030 X10^3/uL (0.0-0.0); Mean Corp Hgb Conc 32.1 g/dL (32-36); Mean Corpuscular Volume 86.7 fL (81-99); Mean Platelet Vol. 9.9 fl (6.2-12.0); NRBC Flagged by Analyzer 0 % (0-5); Platelet Count 320 K/mm3 (150-450); RBC Distribution Width CV 16.6 % (11.6-14.6); RBC Distribution Width SD 52.3 fl (35.1-43.9); Red Blood Count 5.03 M/mm3 (4.2-5.4); White Blood Count 10.4 K/mm3 (4.4-11.0)
[2025-03-14 16:27] LABS: Cholesterol 173 mg/dL (<=200); Low Density Lipoprotein Calc. 99 mg/dL; Triglycerides 101 mg/dL; Very Low Density Lipoprotein 20 mg/dL (5-40); Vitamin D,25 Hydroxy 32.1 ng/mL (30-100); cholesterol:hdl ratio screen 3.20
[2025-03-14 16:39] LABS: AST(SGOT) 26 U/L (<=31); Alanine Aminotransfer ALT/SGPT 43 U/L (<=34); Albumin, Serum 4.1 g/dL (3.4-4.8); Alkaline Phosphatase 140 U/L (35-104); Anion Gap 15 (5-15); BUN 13 mg/dL (4-19); BUN/Creat Ratio 18.2 RATIO (10-20); Calcium,Total 9.1 mg/dL (7.6-11.0); Carbon Dioxide 21.9 mmol/L (21.0-32.0); Chloride 105 mmol/L (98-108); Globulin 3.1 g/dL (2.2-4.2); Glucose 80 mg/dL (70-99); Potassium 3.9 mmol/L (3.3-5.1)
[2025-03-14 16:50] LABS: Creatinine, Urine (random) 119.00 mg/dL (28.00-217.00); Microalbumin,Random Urine < 12.0 mg/L (<20 mg/L)
== END | disposition home or self-care (01) ==
LOC: MTLAB 11:13
PROVIDERS: PCP Internal Medicine; Referring Provider Internal Medicine; Visit Provider Internal Medicine
DX: E11.9 Type 2 diabetes mellitus without complications (principal); E55.9 Vitamin D deficiency, unspecified; E78.5 Hyperlipidemia, unspecified; D72.829 Elevated white blood cell count, unspecified
CPT/HCPCS: 36415; 80053; 80061; 82043; 82306; 82570; 83036; 84443; 85025

== ENCOUNTER → 2025-03-16 | Outpatient (CLI) | payer OTHER, SELFPAY ==
--- NOTE | 2025-03-16 07:54 | US_ITS ---
PROCEDURE: BREAST LIMITED UNILATERAL 03/16/2025 REASON FOR EXAM: F, Age 60 y/o , ABN MAMM COMPARISON: Prior mammogram dated March 02, 2025.. TECHNIQUE: Procedure Code: USBRSTLIMIT Modality: US Procedure: BREAST LIMITED UNILATERAL. The upper half of the left breast was examined with ultrasound. FINDINGS: There is a 3 mm x 6 mm x 3 mm cyst at the 12 o'clock position of the breast at 2 cm from the nipple. There is also evidence of a 6 mm x 5 mm x 4 mm cyst in the retroareolar region of the left breast. US/Breast Limited Unilateral IMPRESSION: The mammographic abnormality corresponds to 2, subcentimeter cysts. BI-RADS 2: BENIGN RECOMMENDATION: Routine annual follow-up in 1 Year Reading Location: [place] [id number]
== END | disposition home or self-care (01) ==
LOC: OPUS 07:52
PROVIDERS: PCP Internal Medicine; Referring Provider Internal Medicine; Visit Provider Internal Medicine
DX: R92.8 Other abnormal and inconclusive findings on diagnostic imaging of breast (principal)
CPT/HCPCS: 76642

== ENCOUNTER 2025-04-04 08:52 | Day surgery (SDC) | payer OTHER, SELFPAY ==
--- NOTE | 2025-03-30 11:38 | PAT.ANESEVAL ---
Pre-Assessment Diagnosis/Proposed Procedure Planned Operative Procedure(s): THORACIC MEDIAL BRANCH BLOCK T10,T11,T12 Anesthesia History Anesthesia History - inspector quality assurance: Anesthesia History - inspector quality assurance Hx Hospitalization No 03/30/25 10:49 Any Problems With Anesthesia Yes: N,V 03/30/25 10:49 Cholinesterase deficiency No 03/30/25 10:49 You/Your Family Experience No 03/30/25 10:49 fever (hyperthermia) with Relationship Recent Exposure to Contagious No 02/14/25 07:04 Disease Does patient have nerve No 03/30/25 10:49 stimulator Patient instructed to have device shut off --Does patient have Pacemaker or ICD? When Was Last Pacemaker Check QUESTION #4 FULL TEXT: You/Your Family Experience fever (hyperthermia) with Anesthesia Last Oral Intake Last Oral intake: Last Oral Intake NPO since Meds taken in AM with sips of water? Meds patient instructed to take am of surgery PONV PONV - inspector quality assurance: PONV - inspector quality assurance Female Yes 03/30/25 10:49 HX of Motion Sickness No 03/30/25 10:49 HX of N/V After Surgery No 03/30/25 10:49 Non-Smoker No 03/30/25 10:49 Duration of Surgery greater No 03/30/25 10:49 than 60 minutes Number of Risk Factors 1 03/30/25 10:49 PONV Score Low Risk 03/30/25 10:49 Height & Weight Height & Weight: Anesthesia: Height & Weight Height 5 ft 8 in 02/14/25 07:04 Respiratory Assessment Respiratory Assessment - inspector quality assurance: Respiratory Tract Infection Hx - inspector quality assurance Hx Respiratory Tract Infection No 03/30/25 10:49 STOP Sleep Apnea STOP Sleep Apnea - inspector quality assurance: STOP Sleep Apnea - inspector quality assurance Hx Hypertension No 03/30/25 10:49 Hx Sleep Apnea No 03/30/25 10:49 CPAP No 03/30/25 10:49 BIPAP Do you snore loudly (louder No 03/30/25 10:49 than talking or can be heard Do you often feel tired/ Yes 03/30/25 10:49 fatigued/ sleepy during daytime? Has anyone observed you stop No 03/30/25 10:49 breathing during sleep? STOP Results Negative 03/30/25 10:49 QUESTION #5 FULL TEXT : Do you snore loudly (louder than talking or can be heard through closed doors)? 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 Specify any problems Hx of Preganancy in last 3 No 03/30/25 10:49 Months Nurse Filling Out Transfusion DSCHRIBER 03/30/25 10:49 & Questions: Date: 03/30/25 03/30/25 10:49 Time: 10:50 03/30/25 10:49 Patient unable to answer at this time (ie. confused, unrespo /Reproduction History /Reproductive History - inspector quality assurance: /Reproductive Hx- inspector quality assurance Hx Now No 03/30/25 10:49 Gestational Age (in weeks): EDC: Hx Hx Para Hx Section SAB No 03/30/25 10:49 PFSH Medical History Dietary restriction Wears glasses Cancer Pulmonary embolism Restless legs Syncope COPD (chronic obstructive pulmonary disease) History of pain when walking History of edema Pain Wears contact lenses Depression Anxiety Diabetes Arthritis High cholesterol Back pain Injury of head and neck Tremor Heartburn Smoker Shortness of breath on exertion History of echocardiogram Hx of tilt table evaluation History of stress test Cardiology follow-up encounter Home Medications ?Medication ?Instructions ?Recorded ?Last Taken ?Type duloxetine 60 mg capsule,delayed 60 mg PO DAILY 03/15/16 03/15/16 History release amitriptyline 50 mg tablet 100 mg PO QHS 09/10/17 Unknown History clonazepam 0.5 mg tablet 0.5 mg PO BID 02/22/19 Unknown History cariprazine 1.5 mg capsule 1.5 mg PO DAILY DEPRESSION 01/21/20 Unknown History (Vraylar) primidone 50 mg tablet 150 mg PO TID 01/21/20 Unknown History topiramate 50 mg tablet 25 mg PO BID 01/21/20 Unknown History cholecalciferol (vitamin D3) 25 25 mcg PO BID 12/03/22 Unknown History mcg (1,000 unit) capsule orphenadrine citrate 100 mg 100 mg PO BID 07/20/24 Unknown History tablet,extended release omeprazole 20 mg capsule,delayed 20 mg PO DAILY 11/12/24 Unknown History release oxycodone 5 mg tablet 5 mg PO TID PRN pain 11/12/24 Unknown History rosuvastatin 40 mg tablet 40 mg PO QHS 11/12/24 Unknown History trazodone 300 mg tablet 450 mg PO QHS 11/12/24 Unknown History linaclotide 145 mcg capsule 145 mcg PO QAM #30 caps 01/20/25 Unknown Rx (Linzess) solifenacin 10 mg tablet 10 mg PO QDAY #30 tabs 03/24/25 Unknown Rx Allergy/AdvReac Type Severity Reaction Status Date / Time cyclobenzaprine (From Allergy Intermediate migraine Verified 03/30/25 10:43 Flexeril) metaxalone Allergy Anaphylaxis Verified 03/30/25 10:43 amoxicillin (From Augmentin) AdvReac Nausea Verified 03/30/25 10:43 clavulanic acid (From AdvReac Nausea Verified 03/30/25 10:43 Augmentin) Family History Mother Anxiety and depression Grandfather CVA (cerebral vascular accident) Hypertension Grandmother Diabetes Surgical History Hx of surgical procedure Hx of partial nephrectomy History of ankle surgery (~03/2024) History of carpal tunnel surgery History of surgical removal of ganglion cyst H/O laminectomy H/O: hysterectomy (~1979) cervical fusion (~06/2010) Social History Smoking Status: Current every day smoker tobacco type: cigarettes Electronic Cigarette Use: with nicotine alcohol intake: current substance use type: does not use caffeine: Yes Type: tea Number of servings: 2 what type of physical activity do you participate in: other details: riding horses seatbelt use: sometimes do you feel safe at home: Yes Prior Cardiac Testing/Procedures Prior Cardiac Testing/Procedures: Echocardiogram (EF 60% ) Addt'l Information Additional Findings: > 4 METS Audit: Pertinent Findings Pertinent Findings Echo (EF%) pertinent findings: EF 60% Recommendation Anesthesia Recommendation Anesthesia recommendation: OPTIMIZED for anesthesia
[2025-04-04] VITALS (8 sets, daily range): BP systolic 131–152; BP diastolic 62–96; PULSE 85–99; RESP 16–22; TEMP 36.1–36.6; O2SAT 93–97; BMI 28.3
[2025-04-04] MEDS: Lactated Ringers 1,000 ML 15 ML IV (09:22)
--- NOTE | 2025-04-04 09:30 | RAD_ITS ---
PROCEDURE: THORACIC SPINE 3 VIEWS 04/04/2025 REASON FOR EXAM: MEDIAL BRANCH BLOCK T10 T11 T12 TECHNIQUE: Procedure Code: RADSPT Modality: DX Procedure: THORACIC SPINE 3 VIEWS RAD/Thoracic Spine 3 Views IMPRESSION: Multiple spot fluoroscopic images depicting needles with tips projecting near t he pedicles of two lower thoracic vertebral bodies. Reading Location: [facility]
--- NOTE | 2025-04-04 09:37 | PCM.PRE.AN2 ---
ASA Classification* ASA Classification ASA Classification: 2 Assessment & Plan Anesthesia* Anesthesia Assessment Anesthesia Assessment: Discussed sedation and/or anesthesia options, risks, benefits, and alternatives with patient/parents/legal guardian/POA. Questions invited. The patient/parents/legal guardian/POA seems to understand and agrees to proceed with anesthesia plan. Reviewed the physical assessment, medical history, allergy history and patient home medications list prior to surgery/procedure/anesthetic and documented any changes. Performed airway and anesthesia risk assessments. Anesthesia Type Anesthesia Type: MAC History Source History Obtained from:: Patient and Chart Anesthesia Focused Assessment* Temperature: 97.8 F Pulse Rate: 99 Blood Pressure: 137/76 Respiratory Rate: 16 Pulse Ox: 97 Oxygen Delivery Method: Room Air Airway Assessment Mouth opens: >3 cm Mallampati Score: IV Teeth Condition: Missing (Patient is missing several teeth. Rest are tight.) Neck Range of motion (ROM): Limited ROM (Severe Restriction) Labs Anesthesia Preop lab: CBC WBC, (4.4-11.0) 10.4 K/mm3 03/14/25, RBC, (4.2-5.4) 5.03 M/mm3 03/14/25, Hgb, (12.0-15.0) 14.0 g/dL 03/14/25, Hct, (37-47) 43.6 % 03/14/25, Plt Count, (150-450) 320 K/mm3 03/14/25, CHEMISTRY Potassium, (3.3-5.1) 3.9 mmol/L 03/14/25, Sodium, (133-145) 141 mmol/L 03/14/25, BUN, (4-19) 13 mg/dL 03/14/25, Creatinine, (0.70-1.20) 0.72 mg/dL 03/14/25, Glucose, (70-99) 80 mg/dL 03/14/25, POC Glucose, (74-106) 136 mg/dL H 02/14/25, 06:56 TSH, (0.300-4.200) 1.490 uIU/mL 03/14/25, COAG Pre-Assessment Diagnosis/Proposed Procedure Planned Operative Procedure(s): THORACIC MEDIAL BRANCH BLOCK T10,T11,T12 Anesthesia History 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 When Was Last Pacemaker Check QUESTION #4 FULL TEXT: You/Your Family Experience fever (hyperthermia) with Anesthesia Last Oral Intake Last Oral intake: Last Oral Intake NPO since 22:00 04/04/25 09:18 Meds taken in AM with sips of No 04/04/25 09:18 water? 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 load dispatcher Female Yes 03/30/25 10:49 HX of Motion Sickness No 03/30/25 10:49 HX of N/V After Surgery No 03/30/25 10:49 Non-Smoker No 03/30/25 10:49 Duration of Surgery greater No 03/30/25 10:49 than 60 minutes Number of Risk Factors 1 03/30/25 10:49 PONV Score Low Risk 03/30/25 10:49 Height & Weight Height & Weight: Anesthesia: Height & Weight Height 5 ft 9 in 04/04/25 09:18 Weight: 87 kg 04/04/25 09:18 Body Mass Index (BMI) 28.3 04/04/25 09:18 Respiratory Assessment Respiratory Assessment - gas load dispatcher: Respiratory Tract Infection Hx - gas load dispatcher Hx Respiratory Tract Infection No 03/30/25 10:49 STOP Sleep Apnea STOP Sleep Apnea - gas load dispatcher: STOP Sleep Apnea - gas load dispatcher Hx Hypertension No 03/30/25 10:49 Hx Sleep Apnea No 03/30/25 10:49 CPAP No 03/30/25 10:49 BIPAP Do you snore loudly (louder No 03/30/25 10:49 than talking or can be heard Do you often feel tired/ Yes 03/30/25 10:49 fatigued/ sleepy during daytime? Has anyone observed you stop No 03/30/25 10:49 breathing during sleep? STOP Results Negative 03/30/25 10:49 QUESTION #5 FULL TEXT : Do you snore loudly (louder than talking or can be heard through closed doors)? 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 Specify any problems Hx of Preganancy in last 3 No 03/30/25 10:49 Months Nurse Filling Out Transfusion DSCHRIBER 03/30/25 10:49 & Questions: Date: 03/30/25 03/30/25 10:49 Time: 10:50 03/30/25 10:49 Patient unable to answer at this time (ie. confused, unrespo /Reproduction History /Reproductive History - gas load dispatcher: /Reproductive Hx- gas load dispatcher Hx Now No 03/30/25 10:49 Gestational Age (in weeks): EDC: Hx Hx Para Hx Section SAB No 03/30/25 10:49 Active Medications Active Medications: Current Medications Generic Name Dose Route Start Last Admin Trade Name Freq PRN Reason Stop Dose Admin Lactated Ringer's 1,000 mls @ 15 mls/hr 04/04/25 09:00 04/04/25 09:22 IV 15 mls/hr .Q48H CHRISTOS Administration PFSH Medical History Dietary restriction Wears glasses Cancer Pulmonary embolism Restless legs Syncope COPD (chronic obstructive pulmonary disease) History of pain when walking History of edema Pain Wears contact lenses Depression Anxiety Diabetes Arthritis High cholesterol Back pain Injury of head and neck Tremor Heartburn Smoker Shortness of breath on exertion History of echocardiogram Hx of tilt table evaluation History of stress test Cardiology follow-up encounter Home Medications ?Medication ?Instructions ?Recorded ?Last Taken ?Type duloxetine 60 mg capsule,delayed 60 mg PO DAILY 03/15/16 03/15/16 History release amitriptyline 50 mg tablet 100 mg PO QHS 09/10/17 Unknown History cariprazine 1.5 mg capsule 1.5 mg PO DAILY DEPRESSION 01/21/20 Unknown History (Vraylar) primidone 50 mg tablet 150 mg PO TID 01/21/20 Unknown History topiramate 50 mg tablet 25 mg PO BID 01/21/20 Unknown History orphenadrine citrate 100 mg 100 mg PO BID 07/20/24 Unknown History tablet,extended release omeprazole 20 mg capsule,delayed 20 mg PO DAILY 11/12/24 Unknown History release oxycodone 5 mg tablet 5 mg PO TID PRN pain 11/12/24 Unknown History rosuvastatin 40 mg tablet 40 mg PO QHS 11/12/24 Unknown History trazodone 300 mg tablet 450 mg PO QHS 11/12/24 Unknown History solifenacin 10 mg tablet 10 mg PO QDAY #30 tabs 03/24/25 Unknown Rx cholecalciferol (vitamin D3) 25 50 mcg PO QDAY 03/31/25 Unknown History mcg (1,000 unit) capsule clonazepam 0.5 mg tablet 0.25 mg PO BID 03/31/25 Unknown History linaclotide 145 mcg capsule 145 mcg PO QAM #30 caps 03/31/25 Unknown Rx (Linzess) omeprazole 40 mg capsule,delayed 40 mg PO QDAY #90 caps 03/31/25 Unknown Rx release Allergy/AdvReac Type Severity Reaction Status Date / Time cyclobenzaprine (From Allergy Intermediate migraine Verified 04/04/25 09:11 Flexeril) metaxalone Allergy Anaphylaxis Verified 04/04/25 09:11 amoxicillin (From Augmentin) AdvReac Nausea Verified 04/04/25 09:11 clavulanic acid (From AdvReac Nausea Verified 04/04/25 09:11 Augmentin) Family History Mother Anxiety and depression Grandfather CVA (cerebral vascular accident) Hypertension Grandmother Diabetes Surgical History Hx of surgical procedure Hx of partial nephrectomy History of ankle surgery (~03/2024) History of carpal tunnel surgery History of surgical removal of ganglion cyst H/O laminectomy H/O: hysterectomy (~1979) cervical fusion (~06/2010) Social History Smoking Status: Current every day smoker (Patient smoked today.) tobacco type: cigarettes Electronic Cigarette Use: with nicotine alcohol intake: current substance use type: does not use caffeine: Yes Type: tea Number of servings: 2 what type of physical activity do you participate in: other details: riding horses seatbelt use: sometimes do you feel safe at home: Yes Review of Systems (Anesthesia) ROS Narrative System reviewed and no additional complaints, except as documented.
[2025-04-04] MEDS: Lidocaine 1% (5 ml sdv) 5 ML Vial (09:55)
--- NOTE | 2025-04-04 09:59 | OP.PCM_ITS ---
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 BLOOD LOSS: Minimal. COMPLICATIONS: None. DESCRIPTION OF PROCEDURE: History and physical of today was reviewed. Risks and benefits of the procedure were explained. The patient understood and agreed to proceed. Informed consent was obtained. IV inserted per routine protocol. The patient was taken to the operating room and placed in the prone position with a pillow positioned underneath the abdomen. The mid back area was prepped and draped in a sterile fashion using iodine x3. Under fluoroscopy guidance on AP view, the T10 through T12 vertebral bodies were visualized. The skin and subcutaneous tissue was anesthetized with approximately 5 mL of 1% lidocaine using a 25-gauge regular needle. Under direct visualization with fluoroscopy at approximately 25-degree angle, starting on the left T10, ending on the right T10, passing through bilateral T11 and T12 using a 22-gauge 3-1/2-inch spinal needle, the needle was advanced via the skin. The tip of the needle was maneuvered and directed towards the epiphyseal junction of each corresponding vertebra at T11 and T12. At L1 and L2, the needle was maneuvered and directed towards the superior medial gutter of the transverse process at the vicinity of the medial branch. Once tip of the needle was in contact with the bone, the needle was pulled approximately 2 mm of the bone. After negative aspiration for blood or CSF and confirmation on AP, oblique as well as lateral view, a total of 8 mL of preservative-free 0.25% Marcaine with 80 mg of Depo-Medrol was injected in divided doses between those four levels. The needles were then removed intact. The patient experienced no sign or symptoms of intrathecal or intravascular injection. The patient experienced no paresthesia. The procedure was completed without any apparent difficulty or any complications. The patient appeared to tolerate it well. ASSESSMENT AND PLAN: This is a 60-year-old female with thoracic spondylosis, thoracic degenerative disc disease, thoracic facet arthropathy, status post bilateral thoracic medial branch block at T10-T12 under fluoroscopic guidance, patient will continue her current medications, patient will follow-up in approximately 1 to 2 weeks for reevaluation. Surgical Findings: 0 Complications Complications: No Admit VTE Documentation VTE Present on Admission: No VTE Mechan Device Prophylaxis: None VTE Pharm Prophylaxis ordered?: No
--- NOTE | 2025-04-04 10:00 | PCM.POST.ANE ---
Anesthesia: Postop Eval I Current Vital Signs Temperature: 97.8 F Pulse Rate: 85 Blood Pressure: 152/96 Respiratory Rate: 22 Pulse Ox: 95 Assessment Airway patent: Yes Spontaneous unlabored respirations: No nausea: No Vomiting: No Anesthesia Complication: No Fluid Hydration Crystalloid volume administer (ml): 200 Total IV fluid infused: 200 Progress Note Anesthesia document: Postop Eval 1 completed: Yes
--- NOTE | 2025-04-04 12:06 | POSTOPAN2_ITS ---
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 Spontaneous unlabored No 04/04/25 10:00 CREATIVE WRITING ENGLISH PROFESSOR.CSIR respirations Mental status nausea No 04/04/25 10:00 CREATIVE WRITING ENGLISH PROFESSOR.CSIR Vomiting No 04/04/25 10:00 CREATIVE WRITING ENGLISH PROFESSOR.CSIR Anesthesia Postop Eval I: Fluid Summary Crystalloid volume administer 200 04/04/25 10:00 CREATIVE WRITING ENGLISH PROFESSOR.CSIR (ml) Colloids volume administered ( ml) Blood Product volume administered (ml) Total IV fluid infused 200 04/04/25 10:00 CREATIVE WRITING ENGLISH PROFESSOR.CSIR Anesthesia Postop Eval I: Summary Notes Anesthesia Complication No 04/04/25 10:00 CREATIVE WRITING ENGLISH PROFESSOR.CSIR Anesthesia Complication Comment: Post-operative progress note Anesthesia: Postop Eval II Evaluation Mental status: Awake and Calm Pain Level: 1 nausea: No Vomiting: No Complications Anesthesia Complication: No
--- NOTE | 2025-04-04 12:06 | PCM.POSTANE2 ---
Anesthesia Postop Eval I Sum Postop Eval Completion status Anesthesia document: Postop Eval 1 completed: Yes Anesthesia Postop Eval I Summary Anesthesia Postop Eval I Summary: Anesthesia Postop Eval I: Assessment Summary Airway patent Yes 04/04/25 10:00 TOE [email or web address].CSIR Spontaneous unlabored No 04/04/25 10:00 TOE PUNCHER.CSIR respirations Mental status nausea No 04/04/25 10:00 TOE PUNCHER.CSIR Vomiting No 04/04/25 10:00 TOE PUNCHER.CSIR Anesthesia Postop Eval I: Fluid Summary Crystalloid volume administer 200 04/04/25 10:00 TOE PUNCHER.CSIR (ml) Colloids volume administered ( ml) Blood Product volume administered (ml) Total IV fluid infused 200 04/04/25 10:00 TOE PUNCHER.CSIR Anesthesia Postop Eval I: Summary Notes Anesthesia Complication No 04/04/25 10:00 TOE PUNCHER.CSIR Anesthesia Complication Comment: Post-operative progress note Anesthesia: Postop Eval II Evaluation Mental status: Awake and Calm Pain Level: 1 nausea: No Vomiting: No Complications Anesthesia Complication: No
== END 2025-04-04 10:44 | disposition home or self-care (01) ==
LOC: SDC 08:52 → AC 08:53
PROVIDERS: PCP Internal Medicine; Referring Provider Anesthesiology Pain Medicine; Visit Provider Anesthesiology Pain Medicine
PROC: 3E0S3BZ Introduction of Anesthetic Agent into Epidural Space, Percutaneous Approach (ICD-10-PCS; CPT 62322; principal; 2025-04-04 10:25)
DX: M47.814 Spondylosis without myelopathy or radiculopathy, thoracic region (principal); J44.9 Chronic obstructive pulmonary disease, unspecified; E11.9 Type 2 diabetes mellitus without complications; M51.34 Other intervertebral disc degeneration, thoracic region; M46.94 Unspecified inflammatory spondylopathy, thoracic region; F17.200 Nicotine dependence, unspecified, uncomplicated; F41.9 Anxiety disorder, unspecified; F32.A Depression, unspecified; E78.00 Pure hypercholesterolemia, unspecified; Z86.711 Personal history of pulmonary embolism; Z79.899 Other long term (current) drug therapy
CPT/HCPCS: 64491; 01992; 64490; 72072; 82962

== ENCOUNTER → 2025-04-26 | Outpatient (CLI) | payer OTHER, SELFPAY ==
[2025-04-26 08:55] VITALS: PULSE 112; PULSE 114; PULSE 116; PULSE 119; PULSE 122; PULSE 123; O2SAT 92; O2SAT 93; O2SAT 94; O2SAT 95
--- NOTE | 2025-04-29 09:48 | PCM.PSN.6M ---
PSN 6 Minute Walk Test 6 Minute Walk Test 6 Minute Walk Test: 6 Minute Walk Test PSN:6-Minute Walk Test Start: 04/26/25 08:54 Freq: Status: Active Protocol: [id number] Document 04/26/25 08:55 EDUIN (Rec: 04/26/25 08:58 EDUIN [id number]) 6 Minute Walk Test Date Performed 04/26/25 Time Performed 08:40 Height 5 ft 8.5 in Weight: 190 lb Weight in Pounds 190.[address]: Valdemar Solomon Assistive device None used: Pre-test Oxygen Delivery Room Air Method Pulse Ox (%) 94 Pulse Rate (60-100 112 H beats/min) Dyspnea Gregory Scale ( 0 0-10) Exertion Gregory Scale 6 (6-20) 1st minute Oxygen Delivery Room Air Method Pulse Ox (%) 93 Pulse Rate (60-100 116 H beats/min) 2nd minute Oxygen Delivery Room Air Method Pulse Ox (%) 92 Pulse Rate (60-100 119 H beats/min) 3rd minute Oxygen Delivery Room Air Method Pulse Ox (%) 93 Pulse Rate (60-100 119 H beats/min) 4th minute Oxygen Delivery Room Air Method Pulse Ox (%) 93 Pulse Rate (60-100 122 H beats/min) 5th minute Oxygen Delivery Room Air Method Pulse Ox (%) 94 Pulse Rate (60-100 122 H beats/min) 6th minute Oxygen Delivery Room Air Method Pulse Ox (%) 93 Pulse Rate (60-100 123 H beats/min) Dyspnea Gregory Scale ( 3 0-10) Exertion Gregory Scale 14 (6-20) Post-test Oxygen Delivery Room Air Method Pulse Ox (%) 95 Pulse Rate (60-100 114 H beats/min) Full Laps Walked 19 Partial Lap, Number 46 of Tiles Walked Total Distance 1167 Walked (ft) Interpretation Interpretation: The patient ambulated 1167 feet over the course of 6 minutes beginning on room air without assistive devices. Pretesting oxygen saturation was noted to be 94% on room air. With ambulation, the mei oxygen saturation was 92%. There was no significant exertional oxygen desaturation. Recommendations Recommendations: There is no indication for the use of supplemental oxygen at this time.
== END | disposition home or self-care (01) ==
LOC: PSN 08:29
PROVIDERS: PCP Internal Medicine; Referring Provider Internal Medicine Critical Care Medicine; Visit Provider Internal Medicine Critical Care Medicine
DX: R06.02 Shortness of breath (principal)
CPT/HCPCS: 94618